=== PATIENT | female | born 1935 | race Caucasian/White ===

== ENCOUNTER 2016-07-20 15:00 | Inpatient (IN) | payer OTHER, MEDICAID ==
--- NOTE | 2016-07-20 15:06 | EDPHY ---
HPI/HX/ROS/PE/MDM Narrative: CHIEF COMPLAINT: Shortness of breath, back pain HPI: The patient is a 80 y/o female, with a history of COPD, arriving via EMS complaining of progressively worsening shortness of breath and back pain for the last 2-3 days. EMS reports her SpO2 has maintained at 97% on 6LPM en route, though she is on 2-3LPM chronically. She states, "I have a stabbing pain in my back below my shoulder blade." The pain radiates around and underneath left breast and is aggravated by deep inspiration. This pain is "much more severe" than her baseline back pain. She has been using her nebulizer twice daily and azithromycin for the last week with no improvement and her Percocet is "barely helping." She denies recent trauma, but is unsure if she has had surgery recently. REVIEW OF SYSTEMS: Aside from elements discussed in the HPI, a comprehensive 10-point review of systems was reviewed and is negative. PMH: COPD, 2-3lpm home O2, osteoarthritis, bilateral hip replacements with left hip revisions, T9 compression fracture with kyphoplasty, chronic back pain, spinal stenosis, appendectomy SOCIAL HISTORY: Lives independently in apartment Prior medical records reviewed including admission 05/18/16 for back pain. PHYSICAL EXAM: General:Patient is alert, in no acute distress. ENT:Eyes are normal to inspection. ENT inspection normal. Neck: Normal inspection. Full range of motion. Respiratory:No respiratory distress. Breath sounds normal bilaterally. Cardiovascular: Regular rate and rhythm. Strong peripheral pulses. Normal cap refill. Abdomen:The abdomen is nontender to palpation. There are no peritoneal signs. There are normal bowel sounds. Back: Normal to inspection. Tenderness just left of lateral to midline around T9. Skin: Normal color. No rash. Warm and dry. Extremities: Normal appearance. Full range of motion. Neuro: Oriented x3. Normal motor function. Normal sensory function. ED Course: 1501: Met EMS upon arrival and took report. Patient presents with 2-3 days of pleuritic back pain that radiates to her left lower chest. History of chronic back pain around same location of pain today. IV established and labs drawn including CBC, CHEM, troponin, d-dimer. Patient placed on surveillance system monitor. Chest x-ray ordered. 1L IV NS administered. The 12 lead EKG was interpreted by myself. See hard copy and/or "tracemaster" electronic copy for interpretation. Study: Chest x-ray Indication: Dyspnea, pain Results: Chest x-ray was obtained. The results of the study are Mild peribronchial thickening with mild right basilar infiltrate. The study was read by the radiologist, Dr. Valle. I viewed the images myself on the PACS system. 1620: D-dimer elevated at 5.44. Plan for chest CTA. Patient requests Percocet for pain. 1 tab PO administered. 1654: Patient refused IV contrast for CTA stating it made her "feel sick for months." We will need to admit so she can get a VQ scan to rule out PE. 1701: Spoke with hospitalist service. Dr. Jimenez accepts admission. MDM: This patient presents with is left-sided chest pain that radiates from the back of the front. She describes the pain is severe and pleuritic. Given her recent hip procedures including multiple conscious sedation was, performed infected myself, I think she is at elevated risk for DVT and PE. Patient has a very elevated D-dimer, which certainly is consistent with this. However, the patient is adamant that she will not undergo a tests involves IV contrast, so I am unable to perform a CT angiogram at this time. The patient will need to be admitted for a V/Q scan appeared the patient has evidence of a central mild right sided opacity on chest x-ray, but she has no fever if her pain is on the left side. Regardless, if this does represent pneumonia, then it would be community-acquired pneumonia that is resistant to the course of azithromycin that the patient just took and thus she would likely be a candidate for admission regardless. I see no evidence for acute coronary syndrome, pneumothorax, thoracic aortic dissection or respiratory failure. - Data Points Laboratory Results: Laboratory Results 07/20/16 15:15 07/20/16 15:15 07/20/16 15:15 WBC 10.68 H 10^3/uL (3.80-9.50) RBC 4.30 10^6/uL (4.18-5.33) Hgb 12.4 L g/dL (12.6-16.3) Hct 40.4 % (38.0-47.0) MCV 94.0 fL (81.5-99.8) MCH 28.8 pg (27.9-34.1) MCHC 30.7 L g/dL (32.4-36.7) RDW 16.2 H % (11.5-15.2) Plt Count 409 H 10^3/uL (150-400) MPV 8.9 fL (8.7-11.7) Neut % (Auto) 82.2 H % (39.3-74.2) Lymph % (Auto) 11.0 L % (15.0-45.0) Dent % (Auto) 5.9 % (4.5-13.0) Eos % (Auto) 0.2 L % (0.6-7.6) Baso % (Auto) 0.3 % (0.3-1.7) Nucleat RBC Rel Count 0.0 % (0.0-0.2) Absolute Neuts (auto) 8.78 H 10^3/uL (1.70-6.50) Absolute Lymphs (auto) 1.18 10^3/uL (1.00-3.00) Absolute Monos (auto) 0.63 10^3/uL (0.30-0.80) Absolute Eos (auto) 0.02 L 10^3/uL (0.03-0.40) Absolute Basos (auto) 0.03 10^3/uL (0.02-0.10) Absolute Nucleated RBC 0.00 10^3/uL (0-0.01) Immature Gran % 0.4 % (0.0-1.1) Immature Gran # 0.04 10^3/uL (0.00-0.10) D-Dimer 5.44 H ug/mLFEU (0.00-0.50) Sodium 140 mEq/L (134-144) Potassium 4.5 mEq/L (3.5-5.2) Chloride 104 mEq/L (97-110) Carbon Dioxide 27 mEq/l (22-31) Anion Gap 9 mEq/L (8-16) BUN 13 mg/dL (7-23) Creatinine 0.7 mg/dL (0.6-1.0) Estimated GFR > 60 Glucose 95 mg/dL (70-100) Calcium 8.8 mg/dL (8.5-10.4) Troponin I < 0.012 ng/mL (0-0.034) Medications Given: Discontinued Medications Oxycodone/Acetaminophen (Percocet 5/325) 1 tab PO EDNOW ONE Stop: 07/20/16 16:19 Last Admin: 07/20/16 16:20 Dose: 1 tab General Initial Vital Signs: Initial Vital Signs Temperature (C) 37.2 C 07/20/16 15:40 Heart Rate 95 07/20/16 15:40 Respiratory Rate 20 07/20/16 15:40 Blood Pressure 131/110 H 07/20/16 15:40 O2 Sat (%) 98 07/20/16 15:40 O2 Delivery Mode Nasal Cannula O2 (L/minute) 4 Allergies/Adverse Reactions: celecoxib [From Celebrex] Allergy (Severe, Verified 05/27/16 17:21) Weight gain, Fatigue, Increased Pain codeine [Codeine] Allergy (Severe, Verified 05/27/16 17:21) Nausea Vomiting duloxetine HCl [From Cymbalta] Allergy (Severe, Verified 05/27/16 17:21) Vomiting hydrocodone bitartrate [From Vicodin] Allergy (Severe, Verified 05/27/16 17:21) Nausea Vomiting levofloxacin [From Levaquin] Allergy (Severe, Verified 05/27/16 17:21) Swelling/neck,face,throat sulfamethoxazole [From Septra] Allergy (Severe, Verified 05/27/16 17:21) Nausea Vomiting trimethoprim [From Septra] Allergy (Severe, Verified 05/27/16 17:21) Nausea Vomiting aspirin Allergy (Intermediate, Verified 05/27/16 17:21) stomach pain cephalexin monohydrate [From Keflex] Allergy (Intermediate, Verified 05/27/16 17 :21) Stomach Pain clarithromycin [From Biaxin] Allergy (Intermediate, Verified 05/27/16 17:21) Stomach Pain orphenadrine Allergy (Intermediate, Verified 05/27/16 17:21) Stomach pain potassium clavula *RETIRED-02/23/12 [From Augmentin] Allergy (Intermediate, Verified 05/26/16 19:18) Itching tetracycline [Tetracycline] Allergy (Intermediate, Verified 05/27/16 17:21) Stomach Pain amoxicillin trihydrate [From Augmentin] Allergy (Verified 06/10/16 15:53) ciprofloxacin [From Cipro] Allergy (Verified 05/27/16 17:21) ciprofloxacin HCl [From Cipro] Allergy (Verified 05/27/16 17:21) potassium clavulanate [From Augmentin] Allergy (Verified 06/10/16 15:53) shrimp Allergy (Verified 06/10/16 15:53) ORPHENGESIC Allergy (Intermediate, Uncoded 12/16/15 15:19) Stomach Pain Terpin hydrate Allergy (Intermediate, Uncoded 12/16/15 15:19) Stomach pain Home Medications: Medication Instructions Recorded Ascorbic Acid [Vitamin C 500 mg 1,000 mg PO BID 08/26/13 (*)] Calcium Carbonate [Tums 500MG (*)] 1,000 - 1,500 mg PO DAILY PRN 08/26/13 Cholecalciferol Vit D3 [Vitamin D3 2,000 units PO DAILY 08/26/13 (*)] Fluticasone/Salmeter 250/50Mcg 1 puffs IH BID 08/26/13 [Advair 250/50 (*)] Herbals/Supplements -Info Only 1 each PO AD 08/26/13 Ipratropium/Albuterol [Duoneb (*)] 3 ml IH BID 08/26/13 Sennosides [Senokot] 3 each PO HS 08/26/13 Pantoprazole Sodium [Protonix 40mg 40 mg PO DAILY 09/15/13 (*)] Alendronate Sodium [Fosamax 70 MG 70 mg PO BERNAL@07 03/29/16 (*)] Gabapentin [Neurontin 300 MG (*)] 300 mg PO BIDMEAL 03/29/16 Levothyroxine [Synthroid 75 mcg 75 mcg PO DAILY06 03/29/16 (*)] buPROPion XL [Wellbutrin 150mg XL] 150 mg PO DAILY 03/29/16 predniSONE [Prednisone] 10 mg PO DAILY 03/29/16 diphenhydrAMINE [Benadryl 25 MG 25 mg PO HS 05/17/16 (*)] oxyCODONE/APAP 5/325 [Percocet 1 tab PO 5XD 05/17/16 5/325 (*)] Albuterol [Ventolin Hfa Inhaler] 2 puffs IH QID PRN 05/26/16 Dicyclomine [Bentyl 10 MG (*)] 10 mg PO QID PRN 05/26/16 Fluticasone Nasal [Flonase Nasal 1 sprays EACHNARE DAILY PRN 07/20/16 [place] (RX)] Gabapentin [Neurontin 300 MG (*)] 600 mg PO HS 07/20/16 Ibuprofen [Motrin (*)] 400 mg PO 5XD 07/20/16 Departure - Departure Disposition: [facility] Inpatient Acute Clinical Impression: Back pain, Dyspnea Condition: Good Report Scribed for: Manuel Montalvo Report Scribed by: Desire London Date of Report: 07/20/16 Time of Report: 15:55 Physician Review and Approval Statement: Portions of this note were transcribed by an ED scribe. I personally performed the history, physical exam, and medical decision making; and confirm the accuracy of the information in the transcribed note.
[2016-07-20 15:49] LABS: % IMMATURE GRANULYOCYTES 0.4 % (0.0-1.1); ABSOLUTE IMMATURE GRANULOCYTES 0.04 10^3/uL (0.00-0.10); ADD DIFF? NO; ADD MORPH? NO; ADD SCAN? NO; ATYPICAL LYMPHOCYTE FLAG 0 (0-99); FRAGMENT RBC FLAG 0 (0-99); HEMATOCRIT 40.4 % (38.0-47.0); HEMOGLOBIN 12.4 g/dL (12.6-16.3); LEFT SHIFT FLG 0 (0-99); LIPEMIA HEMOLYSIS FLAG 80 (0-99); MEAN CELL HEMOGLOBIN 28.8 pg (27.9-34.1); MEAN CELL HEMOGLOBIN CONCENTR. 30.7 g/dL (32.4-36.7); MEAN PLATELET VOLUME 8.9 fL (8.7-11.7); PLATELET CLUMPS FLAG 20 (0-99); PLATELET COUNT 409 10^3/uL (150-400); RED CELL DISTRIBUTION WIDTH 16.2 % (11.5-15.2)
[2016-07-20 15:53] LABS: ANION GAP 9 mEq/L (8-16); CALCIUM 8.8 mg/dL (8.5-10.4); CARBON DIOXIDE 27 mEq/l (22-31); CHLORIDE 104 mEq/L (97-110); CREATININE 0.7 mg/dL (0.6-1.0); GLOMERULAR FILTRATION RATE > 60; GLUCOSE 95 mg/dL (70-100); POTASSIUM 4.5 mEq/L (3.5-5.2); SODIUM 140 mEq/L (134-144)
[2016-07-20 16:04] LABS: TROPONIN I < 0.012 ng/mL (0-0.034)
--- NOTE | 2016-07-20 16:16 | CPEKG ---
Heart Rate: 89 RR Interval: 674 P-R Interval: 164 QRSD Interval: 124 QT Interval: 392 QTC Interval: 477 P [place]: 48 QRS [place]: 3 T Wave [place]: -15 EKG Severity - ABNORMAL ECG - EKG Impression: SINUS RHYTHM EKG Impression: RIGHT BUNDLE BRANCH BLOCK Electronically Signed By: Manuel Montalvo 20-Jul-2016 22:36:06
[2016-07-20] MEDS ORDERED: OXYCODONE/APAP 5/325 TAB PO ONE (16:18)
--- NOTE | 2016-07-20 16:20 | DX ---
Chest, AP Upright and Lateral Views, at 3:23 p.m. Clinical History: 80-year-old female in the ED with chest pain. Comparison Study: Chest, dated March 29, 2016. Findings: The patient has undergone prior vertebroplasty of T9 with an old T8 compression fracture al so noted; there is a kyphosis at this level, and the bones are diffusely demineralized. Oxygen tubing and telemetry monitoring lead lines are present. The cardiac size is at the upper limits of normal. There is tortuosity of the descending thoracic aorta. There is mild central perihilar bronchial wall thickening. There is some patchy airspace disease consistent with a mild infiltrate at the right lung base. Impression: Mild peribronchial thickening with mild right basilar infiltrate.
[2016-07-20] MEDS ORDERED: IOPAMIDOL (ISOVUE 370) 100 ML BTL IV ONE (16:37)
[2016-07-20] MEDS ORDERED: ENOXAPARIN 80 MG/0.8 ML SYR SC ONE (18:00)
[2016-07-20 18:32] LABS: COLOR YELLOW; LEUKOCYTE ESTERASE,URINE TRACE (NEGATIVE); NITRITE,URINE NEGATIVE (NEGATIVE)
[2016-07-20 18:33] LABS: INR 0.98 (0.83-1.16); PROTIME(PATIENT) 12.9 SEC (12.0-15.0)
[2016-07-20 18:34] LABS: APTT 24.8 SEC (23.0-38.0)
[2016-07-20 18:36] LABS: MUCUS TRACE /lpf (NONE-1+); YEAST PRESENT /hpf (NONE SEEN)
[2016-07-20] MEDS ORDERED: DICYCLOMINE 10 MG CAP PO PRN (19:18)
[2016-07-20] MEDS ORDERED: NON-FORMULARY NEW DRUG (Albuterol 2 PUFFS) IH PRN (19:18)
[2016-07-20] MEDS ORDERED: ALBUTEROL HFA ANES ONLY 200 PUFFS/8.5 GM MDI IH PRN (19:22)
[2016-07-20] MEDS: GABAPENTIN 300 MG CAP PO SCH (19:48)
[2016-07-20] MEDS: SENNOSIDES 1 TAB PO SCH (19:49)
[2016-07-20] MEDS: diphenhydrAMINE 25 MG CAP PO SCH (19:50)
[2016-07-20] MEDS ORDERED: KETOROLAC 30 MG/1 ML SDV IVP ONE ×2 (20:01→20:30)
[2016-07-20] MEDS: HYDROmorphONE/DILAUDID 1 MG/ML SYR IVP PRN (20:10)
[2016-07-20] MEDS: OXYCODONE/APAP 5/325 TAB PO SCH (21:47)
[2016-07-20] MEDS ORDERED: ONDANSETRON 4 MG/2 ML VIAL IVP PRN (21:58)
[2016-07-20] MEDS ORDERED: ONDANSETRON DISINTEGRATING 4 MG TAB PO PRN (21:58)
[2016-07-20] MEDS ORDERED: ACETAMINOPHEN 325 MG TAB PO PRN (21:58)
[2016-07-20] MEDS: FLUTICASONE NASAL 120 SPRAYS/16 GM MDI EACHNARE PRN (21:59)
[2016-07-20] MEDS: IPRATROPIUM/ALBUTEROL 3 ML DEYVIAL IH SCH (22:03)
[2016-07-20] MEDS: FLUTICASONE/SALMETER 250/50MCG DISKUS IH SCH (22:04)
--- NOTE | 2016-07-20 22:34 | GHP ---
[f rep st] HISTORY AND PHYSICAL DATE OF ADMISSION: 07/20/2016 CHIEF COMPLAINT: Left-sided chest pain. HISTORY OF PRESENT ILLNESS: This is a 80-year-old female who has been recently admitted a few times in the last month. She has a history of a recent kyphoplasty for compression fracture and also had a hip dislocation in early May. She states she has had several days of severe left-sided chest p ain which is pleuritic and quite sharp and also is radiating to her back. She also feels increasing shortness of breath that is independent of the pain. She denies any lower extremity swelling. No fe vers or chills. She did have a little bit of a cough and thought the pain may be related to possible pneumonia and finished a Z-MIGUEL. This did not help any of her symptoms. Patient adamantly refuses I V contrast since she got sick for 3 months after last contrasted study. REVIEW OF SYSTEMS: A 10-point review of systems was obtained and was negative. PAST MEDICAL HISTORY: 1. Chronic back pain on opioids. 2. Recent compression fracture status post kyphoplasty. 3. Recent hip dislocation. 4. COPD with chronic hypoxic respiratory failure on 3 L of oxygen at home. 5. Hypothyroidism. 6. Severe arthritis. 7. History of spinal stenosis. 8. History of perforated ulcer. FAMILY HISTORY: Reviewed. No history of blood clots. SOCIAL HISTORY: Former smoker. No alcohol. Lives at home. PHYSICAL EXAMINATION: VITAL SIGNS: Afebrile. Blood pressure is 158/134, heart rate 83, oxygen satu ration 94% on 2 L. GENERAL: The patient is well developed in no apparent distress. HEENT: [place] sclerae. Extraocular movements intact. Moist mucous membranes. NECK: Supple. No thyromegaly. LUNGS: Good effort and slight crackles in the right base. Some tenderness in the chest wall on th e left back. ABDOMEN: Positive bowel sounds, soft, nontender, nondistended. No hepatosplenomegaly. EXTREMITIES: No clubbing, cyanosis or edema. SKIN: Without rash or intact. NEUROLOGIC: Alert a nd oriented x3. Moves all 4 extremities equally. PSYCH: Normal mood and affect. LABS: White blood cell count 10, hemoglobin 12, platelets are 409. D-dimer is elevated at 5.4. Kaelyn mistries normal. EKG shows a right bundle branch block, which is old. Chest x-ray shows mild right basilar infiltrate. ASSESSMENT: This is a 80-year-old female presenting with symptoms very suggestive of pulmonary embol ism and quite elevated D-dimer but refusing CT scan. PLAN: 1. Rule out pulmonary embolism. The patient will be empirically treated at this point with Lovenox. In the morning, we will get a V/Q scan, echocardiogram and Dopplers to help guide decision making g oing forward. I did give a little bit of Toradol tonight for her pain, but we will hold off the regu lar scheduled ibuprofen that she is usually on. 2. Chronic obstructive pulmonary disease. We will continue her chronic prednisone. 3. Chronic pain. We will continue narcotics. /[id number]/MODL
--- NOTE | 2016-07-20 23:12 | US ---
Ultrasound Venous Duplex Doppler - Bilateral Legs at 2232 hours History: Back pain. Pain and swelling. Findings: Ultrasound venous Duplex and Doppler imaging of the bilateral common femoral veins, femoral veins, popliteal veins, calf veins, and greater saphenous vein origins demonstrates normal compressi bility, Duplex color-flow, Doppler flow without deep venous thrombosis. Impression: No deep venous thrombosis bilateral legs.
[2016-07-21] MEDS: HYDROmorphONE/DILAUDID 1 MG/ML SYR IVP PRN ×4 (02:41→20:23)
[2016-07-21] MEDS: OXYCODONE/APAP 5/325 TAB PO SCH ×5 (05:39→22:48)
[2016-07-21] MEDS: LEVOTHYROXINE 75 MCG TAB PO SCH (05:39)
[2016-07-21 06:14] LABS: % IMMATURE GRANULYOCYTES 0.5 % (0.0-1.1); ABSOLUTE IMMATURE GRANULOCYTES 0.04 10^3/uL (0.00-0.10); ADD DIFF? NO; ADD MORPH? NO; ADD SCAN? NO; ATYPICAL LYMPHOCYTE FLAG 20 (0-99); FRAGMENT RBC FLAG 0 (0-99); HEMATOCRIT 37.1 % (38.0-47.0); HEMOGLOBIN 11.2 g/dL (12.6-16.3); LEFT SHIFT FLG 0 (0-99); LIPEMIA HEMOLYSIS FLAG 80 (0-99); MEAN CELL HEMOGLOBIN 28.6 pg (27.9-34.1); MEAN CELL HEMOGLOBIN CONCENTR. 30.2 g/dL (32.4-36.7); MEAN CELL VOLUME 94.6 fL (81.5-99.8); PLATELET CLUMPS FLAG 10 (0-99); PLATELET COUNT 354 10^3/uL (150-400); RED BLOOD CELL COUNT 3.92 10^6/uL (4.18-5.33); RED CELL DISTRIBUTION WIDTH 16.4 % (11.5-15.2)
[2016-07-21 06:31] LABS: ANION GAP 6 mEq/L (8-16); CALCIUM 8.4 mg/dL (8.5-10.4); CARBON DIOXIDE 31 mEq/l (22-31); CHLORIDE 105 mEq/L (97-110); CREATININE 0.6 mg/dL (0.6-1.0); GLOMERULAR FILTRATION RATE > 60; GLUCOSE 76 mg/dL (70-100); POTASSIUM 3.6 mEq/L (3.5-5.2); SODIUM 142 mEq/L (134-144)
[2016-07-21] MEDS: predniSONE 10 MG TAB PO SCH (08:01)
[2016-07-21] MEDS: buPROPion XL 150 MG TAB PO SCH (08:01)
[2016-07-21] MEDS: GABAPENTIN 300 MG CAP PO SCH ×3 (08:01→20:06)
[2016-07-21] MEDS: PANTOPRAZOLE SODIUM 40 MG TAB PO SCH (08:01)
[2016-07-21] MEDS ORDERED: FLU VACC TS 2016-17(65YR+)/PF 0.5 ML SYR (FLUZONE HIGH DOSE) IM ONE (08:44)
[2016-07-21] MEDS ORDERED: PNEUMOC 13-VAL CONJ-DIP CRM/PF 0.5 ML SYR IM ONE (08:44)
[2016-07-21] MEDS ORDERED: ENOXAPARIN 80 MG/0.8 ML SYR SC SCH (09:00)
[2016-07-21] MEDS: IPRATROPIUM/ALBUTEROL 3 ML DEYVIAL IH SCH ×2 (10:05→20:33)
[2016-07-21] MEDS: FLUTICASONE/SALMETER 250/50MCG DISKUS IH SCH ×2 (10:12→20:37)
--- NOTE | 2016-07-21 10:45 | ECHO ---
[id number] + + [address] : : [place] [address] : : [phone] + Adult Echocardiographic Report + ---+ :Name: Jonas ARAUJO Date: 07/21/2016 07:40 AM : : Hospital Admission Number: [id number] Location: 395: :: 1935 Gender: Female Height: 60 in : :Age: 80 yrs Race: WH Weight: 152 lb : :Reason For Study: Question PE : : BSA: 1.7 meters2 : + ---+ MMode/2D Measurements & Calculations IVSd: 0.79 cm LVIDd: 4.6 cm FS: 44.4 % MV Diam: 3.0 cm LVPWd: 0.95 cm LVIDs: 2.5 cm EDV(Teich): 96.7 ml ESV(Teich): 23.4 ml EF(Teich): 75.7 % Ao root diam: LVOT diam: 1.8 cmLVLd ap4: 7.1 cm SV(MOD-sp4): 3.1 cm LVOT area: EDV(MOD-sp4): 38.0 ml LA dimension: 2.5 cm2 60.0 ml 4.4 cm LVLs ap4: 5.7 cm ESV(MOD-sp4): 22.0 ml EF(MOD-sp4): 63.3 % Normal Measurement Values: + + :LVIDd (3.5-5.7cm) IVSd (0.6-1.1cm) LVPWd (0.6-1.1cm) Aortic Root (2.0-3.7cm)Left Atrium (1.5-4.0cm): :LV Vol(d) (76-115ml) LV Vol(s) (29-48ml) Ejec Fraction (50-65%)PV Liban (0.6- 1.2m/s) TV Liban (0.4-1.0m/s) : :MV E Liban (0.8-1.0m/s)MV A Liban (0.3-1.0m/s)LVOT Liban (0.7-1.2m/s) Asc Ao Liban ( 0.9-1.8m/s) : + + Doppler Measurements & Calculations MV E max liban: MV V2 max: Ao V2 max: LV V1 max: 55.8 cm/sec 94.6 cm/sec 161.0 cm/sec 86.5 cm/sec MV A max liban: MV max P.6 mmHg Ao max PG: LV V1 max P.9 cm/sec MV V2 mean: 10.4 mmHg 3.0 mmHg MV E/A: 0.63 65.2 cm/sec Ao mean PG: LV V1 mean PG: MV mean P.0 mmHg 2.0 mmHg 2.0 mmHg Ao V2 mean: LV V1 mean: MV V2 VTI: 23.6 cm 111.0 cm/sec 62.4 cm/sec MV area (1 diam): Ao V2 VTI: 30.3 cm LV V1 VTI: 18.8 cm 7.1 cm2 RESHMA(I,D): 1.6 cm2 MVA(VTI): 2.0 cm2 RESHMA(V,D): 1.4 cm2 MV Flow area (1diam): 7.1 cm2 MR max liban: MR(RF 1 diam): SV(MV 1 diam): TR max liban: 632.0 cm/sec 5.8 % 166.8 ml 257.0 cm/sec MR max PG: SI(MV 1 diam): TR max P.8 mmHg 100.4 ml/m2 26.4 mmHg SV(LVOT): 47.8 ml RAP systole: 5.0 mmHg RVSP(TR): 31.4 mmHg RF(MV,Ao)(1 diam): -0.37 RF(MV,LVOT) (1diam): 0.71 Left Ventricle The left ventricle is normal in size. There is normal left ventricular wall thickness. Left ventricular systolic function is normal. Ejection Fraction = 65-70%. No regional wall motion abnormalities noted. Right Ventricle The right ventricle is normal in size and function. Atria The left atrium is mildly dilated. Right atrial size is normal. The interatrial septum is intact with no evidence for an atrial septal defect. Mitral Valve The mitral valve is normal in structure and function. There is no evidence of mitral valve prolapse. There is no mitral valve stenosis. There is moderate mitral regurgitation. Tricuspid Valve Normal tricuspid valve. Right ventricular systolic pressure is normal. There is mild tricuspid regurgitation. Aortic Valve The aortic valve is trileaflet. The aortic valve opens well. Mild Aortic Valve Calcification. There is no aortic stenosis. There is no aortic insufficiency. Pulmonic Valve The pulmonic valve is normal in structure and function. Trace pulmonic valvular regurgitation. Great Vessels The aortic root is normal size. Pericardium/Pleural There is no pericardial effusion. There is a fat pad seen. Conclusion A complete two-dimensional transthoracic echocardiogram was performed (2D, M-mode, Doppler and color flow Doppler). Left ventricular systolic function is normal. Ejection Fraction = 65-70%. The left atrium is mildly dilated. There is moderate mitral regurgitation. There is mild tricuspid regurgitation. Right ventricular systolic pressure is normal. Mild Aortic Valve Calcification Trace pulmonic valvular regurgitation. There is a fat pad seen. Final Reading Physician: Zuleyka Aiken signed on 07/21/2016 10:43 AM Ordering Physician: Roxann Jimenez Performed By: Aleksandra Hendricks, RICK
--- NOTE | 2016-07-21 12:23 | NM ---
Nuclear Medicine Ventilation/Perfusion Lung Scan Indications: Possible pulmonary embolus, declines IV contrast. Comparison: PA and lateral chest July 20, 2016. Technique: Ventilation imaging was performed with 11.0 mCi of 133 xenon, administered by inhalation. Single-breath, equilibrium, and washout phases were imaged. Perfusion imaging was performed with 5 .5 mCi of technetium 99m MAA injected intravenously. Perfusion images were acquired in multiple proj ections. Findings: There is mild air trapping in the apices, left greater than right. There is an equivocal sm all right apical perfusion defect. Impression: 1. Low probability for pulmonary embolus. 2. Mild air trapping.
--- NOTE | 2016-07-21 13:06 | HOSPPROG ---
Hospitalist Progress Note Assessment/Plan: 80-year-old admitted with left upper back pain. This started fairly suddenly in the setting of chronic back pain and recurrent compression fractures. # left upper back pain radiating to left ribs. Echo, ultrasound lower extremities and V/Q scan all negative for DVT and PE. Echo shows normal function with no pulmonary hypertension. EKG is normal troponins were negative * Suspect possible compression fracture given patient's history * Check x-rays * PT OT * Pain requiring IV narcotics will need greater than 2 midnight stay. # chronic back pain with ongoing narcotic dependency * Continue medications * Physical therapy # COPD with chronic respiratory failure of 3 liters/minute, stable from respiratory standpoint continue her usual medications and oxygen # hypothyroidism on replacement # recent hip dislocation # spinal stenosis # DVT prophylaxis will start low-molecular weight heparin Subjective: Patient had sudden onset of back pain radiating to her left ribs. Similar to her previous compression fracture. No shortness of breath diaphoresis associated with this no history of heart disease. Pain is constant , worse with movement better when she is lying flat Objective: Vital Signs Temp Pulse Resp BP Pulse Ox 36.7 C 88 18 134/69 H 93 07/21/16 08:32 07/21/16 12:06 07/21/16 12:06 07/21/16 12:06 07/21/16 12:06 Laboratory Results 07/21/16 05:31 07/21/16 05:31 07/20/16 07/21/16 07/22/16 05:59 05:59 05:59 Intake Total 250 Balance 250 PT 12.9 SEC (12.0-15.0) 07/20/16 15:15 INR 0.98 (0.83-1.16) 07/20/16 15:15 - Physical Exam Constitutional: obese, uncomfortable Eyes: PERRL, anicteric sclera, EOMI Ears, Nose, Mouth, Throat: moist mucous membranes, hearing normal, ears appear normal Cardiovascular: regular rate and rhythym, no murmur, rub, or gallop Respiratory: no respiratory distress, no rales or rhonchi, clear to auscultation Gastrointestinal: normoactive bowel sounds, soft, non-tender abdomen, no palpable masses Genitourinary: no bladder fullness Skin: warm, normal color Musculoskeletal: other (Spine tenderness upper T-spine), No muscular tenderness Neurologic: AAOx3 Psychiatric: interacting appropriately, not anxious, not encephalopathic ICD10 Worksheet Patient Problems: Problems Problem Status Diagnosed Back pain Acute Dyspnea Acute Hypoxemia Acute Gastric ulcer with perforation Acute Generalized weakness Acute Hip dislocation, left Acute Osteoporosis Acute S/P hip replacement Acute
[2016-07-21] MEDS ORDERED: ALBUTEROL 60 PUFFS/8 GM MDI IH PRN (15:59)
--- NOTE | 2016-07-21 17:09 | DX ---
Thoracic Spine 2 views at 15:49 PM Indication: Scapular pain. History of compression fractures. Comparison: MRI of the thoracic spine dated May 18, 2016 and 2 view chest dated July 20 2016 Findings: No acute compression fracture. The moderate to severe compression fractures at T8 and T9 an d intramedullary cement of the T9 level are unchanged. Kyphosis and multilevel degenerative disk and facet arthropathy is unchanged. A subacute posterior right sixth rib fracture has minimal sclerosis. No left-sided rib fractures. Aeration has improved and right basilar atelectasis has resolved. Impression: 1. No evidence of acute upper thoracic spine compression fracture. 2. Moderate to severe compression deformities at T8 and T9 are unchanged since May 2016. 3. Improved aeration and right basilar atelectasis since one day prior. Comment: The results were discussed with Dr. Zainab Priest
[2016-07-21] MEDS: SENNOSIDES 1 TAB PO SCH (20:07)
[2016-07-21] MEDS: diphenhydrAMINE 25 MG CAP PO SCH (20:23)
[2016-07-22] MEDS: HYDROmorphONE/DILAUDID 1 MG/ML SYR IVP PRN ×4 (05:07→19:17)
[2016-07-22] MEDS: OXYCODONE/APAP 5/325 TAB PO SCH ×3 (05:08→13:47)
[2016-07-22] MEDS: LEVOTHYROXINE 75 MCG TAB PO SCH (05:08)
[2016-07-22] MEDS: FLUTICASONE/SALMETER 250/50MCG DISKUS IH SCH ×2 (09:45→21:35)
[2016-07-22] MEDS: IPRATROPIUM/ALBUTEROL 3 ML DEYVIAL IH SCH ×2 (09:46→21:26)
[2016-07-22] MEDS: PANTOPRAZOLE SODIUM 40 MG TAB PO SCH (09:48)
[2016-07-22] MEDS: predniSONE 10 MG TAB PO SCH (09:49)
[2016-07-22] MEDS: buPROPion XL 150 MG TAB PO SCH (09:50)
[2016-07-22] MEDS: GABAPENTIN 300 MG CAP PO SCH ×3 (09:50→20:49)
[2016-07-22] MEDS ORDERED: PNEUMOC 13-VAL CONJ-DIP CRM/PF 0.5 ML SYR IM ONE (10:16)
--- NOTE | 2016-07-22 11:29 | HOSPPROG ---
Hospitalist Progress Note Assessment/Plan: 80-year-old admitted with left upper back pain. This started fairly suddenly in the setting of chronic back pain and recurrent compression fractures. Discussed with Dr. Barreto. CT of thoracic spine shows multiple rib fractures as well as possible worsening compression fracture of T8. Discussed findings with patient. # left upper back pain radiating to left ribs. * Options include MRI with sedation and possible kyphoplasty of T8 versus medical management * Unclear how much of her pain is directly from the rib fractures versus compression fracture. * Patient will think about options and let me know if she wants to proceed with MRI, I will alert Dr. Barreto, if she opts for kyphoplasty. She will need an MRI prior to kyphoplasty * Add scheduled Tylenol, Oxy IR and Ultram as needed. * Physical and occupational therapy # chest pain on admission. V/Q scan echo and Dopplers were all negative. Suspect this is all referred pain from her posterior rib fractures # chronic back pain with ongoing narcotic dependency * Continue medications * Physical therapy # COPD with chronic respiratory failure of 3 liters/minute, stable from respiratory standpoint continue her usual medications and oxygen # hypothyroidism on replacement # severe osteoporosis with spontaneous fractures, needs follow-up with endocrine or Rheumatology since she is on chronic steroid therapy for her severe COPD # recent hip dislocation # spinal stenosis # DVT prophylaxis hold low-molecular weight heparin for 2 days given possible epidural steroid injection or kyphoplasty, will start Barney milan and Miko Subjective: Just got out of bed and complains of a lot of pain when she moves. No chest pains no shortness of breath. Most of the pain is located in her back Objective: Vital Signs Temp Pulse Resp BP Pulse Ox 36.6 C 83 18 126/70 H 93 07/22/16 10:02 07/22/16 10:02 07/22/16 10:02 07/22/16 10:02 07/22/16 10:02 Laboratory Results 07/21/16 05:31 07/21/16 05:31 07/21/16 07/22/16 07/23/16 05:59 05:59 05:59 Intake Total 250 Balance 250 PT 12.9 SEC (12.0-15.0) 07/20/16 15:15 INR 0.98 (0.83-1.16) 07/20/16 15:15 - Time Spent With Patient Time Spent with Patient: greater than 35 minutes (Discussed various options for her pain control and her prognosis.) Time Spent with Patient: Greater than 35 minutes spent on this patients care, greater than 50% of time spent counseling, educating, and coordinating care regarding the above mentioned plan. - Physical Exam Constitutional: obese, uncomfortable Eyes: PERRL, EOMI Ears, Nose, Mouth, Throat: moist mucous membranes, hearing normal, ears appear normal Cardiovascular: regular rate and rhythym, no murmur, rub, or gallop, No edema Respiratory: no respiratory distress, no rales or rhonchi, clear to auscultation Gastrointestinal: normoactive bowel sounds, soft, non-tender abdomen, no palpable masses Genitourinary: no bladder fullness Skin: warm, normal color Musculoskeletal: other (Spinal tenderness lower T-spine) Neurologic: AAOx3 Psychiatric: interacting appropriately, not anxious, not encephalopathic ICD10 Worksheet Patient Problems: Problems Problem Status Diagnosed Back pain Acute Dyspnea Acute Hypoxemia Acute Gastric ulcer with perforation Acute Generalized weakness Acute Hip dislocation, left Acute Osteoporosis Acute S/P hip replacement Acute
[2016-07-22] MEDS: LIDOCAINE 5% 1 EA PATCH TD SCH (12:41)
--- NOTE | 2016-07-22 13:23 | CT ---
CT Thoracic Spine (Trauma ) without Contrast 12:08 p.m. Indication: Back pain. History of demineralization and kyphoplasty. Technique: Small [id number] 1.5-mm thick helically acquired slices were obtained through the thora cic spine. Small [id number]-hd-[id number] sagittal and coronal reconstructions of the spine were performed and b one algorithm. Dose reduction techniques were utilized. Comparison: MRI of the thoracic spine dated May 18, 2016 and thoracic spine series from one day prior. Findings: An acute fracture of the left fourth rib neck (image 57 of series 4) is evidenced by a disc rete fracture plane and buckle deformity. No healing callus has developed. Subacute rib neck fracture s involve the left fifth, left sixth, bilateral seventh, eighth, and ninth ribs evidenced by fracture planes and healing callus. No acute thoracic spine fracture. Specifically, no acute thoracic spine fracture at the T4 level. The moderate to severe T9 compression fracture containing intramedullary cement is unchanged. The old mo derate to severe T8 compression fracture has minimal vertical height loss since May 2016. The an terior vertebral body now measures 6 mm craniocaudal (previously 9 mm). No paraspinal hematoma or fluid collection. Image portion of the lungs reveals centrilobular emphysem a, diffuse peribronchial thickening and minimal bibasilar atelectasis. The thoracic aorta is normal c aliber and tortuous with moderate calcified plaque. Impression: 1. Acute fracture of the left fourth rib neck. 2. Subacute fractures of the left fifth, sixth, and bilateral seventh, eighth, and ninth ribs at the neck near the articulation with the spine. 3. Old moderate to severe T8 and T9 compression fractures. Minimal progressive height loss of T8 sinc e May 2016. 4. No new thoracic spine compression fracture.
[2016-07-22] MEDS: METHOCARBAMOL 500 MG TAB PO SCH ×2 (15:49→20:50)
[2016-07-22] MEDS: ACETAMINOPHEN 500 MG TAB PO SCH ×2 (15:51→20:49)
[2016-07-22] MEDS: traMADol 50 MG TAB PO PRN (15:51)
[2016-07-22] MEDS: FLUTICASONE NASAL 120 SPRAYS/16 GM MDI EACHNARE PRN (19:21)
[2016-07-22] MEDS: diphenhydrAMINE 25 MG CAP PO SCH (20:49)
[2016-07-22] MEDS: SENNOSIDES 1 TAB PO SCH (20:50)
[2016-07-22] MEDS: oxyCODONE IR 5 MG TAB PO PRN (20:59)
[2016-07-22] MEDS: PATCH REMOVAL 1 EA PATCH TD SCH (21:06)
[2016-07-23] MEDS: HYDROmorphONE/DILAUDID 1 MG/ML SYR IVP PRN ×3 (04:39→17:38)
[2016-07-23] MEDS: LEVOTHYROXINE 75 MCG TAB PO SCH (04:40)
[2016-07-23] MEDS: LIDOCAINE 5% 1 EA PATCH TD SCH (08:21)
[2016-07-23] MEDS: traMADol 50 MG TAB PO PRN (08:21)
[2016-07-23] MEDS: oxyCODONE IR 5 MG TAB PO PRN ×2 (08:22→12:14)
[2016-07-23] MEDS: predniSONE 10 MG TAB PO SCH (08:22)
[2016-07-23] MEDS: PANTOPRAZOLE SODIUM 40 MG TAB PO SCH (08:22)
[2016-07-23] MEDS: buPROPion XL 150 MG TAB PO SCH (08:22)
[2016-07-23] MEDS: ACETAMINOPHEN 500 MG TAB PO SCH ×3 (08:22→20:56)
[2016-07-23] MEDS: GABAPENTIN 300 MG CAP PO SCH ×3 (08:23→20:56)
[2016-07-23] MEDS: METHOCARBAMOL 500 MG TAB PO SCH ×3 (08:23→20:56)
[2016-07-23] MEDS: FLUTICASONE/SALMETER 250/50MCG DISKUS IH SCH ×2 (08:25→21:04)
[2016-07-23] MEDS ORDERED: LIDOCAINE 5% 1 EA PATCH TD SCH (09:00)
[2016-07-23] MEDS: IPRATROPIUM/ALBUTEROL 3 ML DEYVIAL IH SCH ×2 (09:14→21:04)
[2016-07-23] MEDS: HYDROmorphONE/DILAUDID 2 MG TAB PO PRN ×3 (15:10→20:55)
--- NOTE | 2016-07-23 16:07 | HOSPPROG ---
Hospitalist Progress Note Assessment/Plan: 80-year-old admitted with left upper back pain. This started fairly suddenly in the setting of chronic back pain and recurrent compression fractures. Discussed with Dr. Barreto. CT of thoracic spine shows multiple rib fractures as well as possible worsening compression fracture of T8. Discussed findings with patient. # left upper back pain radiating to left ribs. * Options include MRI with sedation and possible kyphoplasty of T8 versus medical management * suspect pain is more from ribs * Patient wants to hold off on kyphoplasty * transition to oral pain management regimen # chest pain on admission. V/Q scan echo and Dopplers were all negative. Suspect this is all referred pain from her posterior rib fractures # chronic back pain with ongoing narcotic dependency * Continue medications * Physical therapy # COPD with chronic respiratory failure of 3 liters/minute, stable from respiratory standpoint continue her usual medications and oxygen # hypothyroidism on replacement # severe osteoporosis with spontaneous fractures, needs follow-up with endocrine or Rheumatology since she is on chronic steroid therapy for her severe COPD * vitamin-D a little low. Will need to increase dose outpatient # recent hip dislocation # spinal stenosis # DVT prophylaxis hold low-molecular weight heparin for 2 days given possible epidural steroid injection or kyphoplasty, will start Barney bjorn and SCDs Subjective: back and chest pain is getting a little bit better Objective: Vital Signs Temp Pulse Resp BP Pulse Ox 37.0 C 94 18 120/60 93 07/23/16 15:57 07/23/16 15:57 07/23/16 15:57 07/23/16 15:57 07/23/16 15:57 Laboratory Results 07/21/16 05:31 07/21/16 05:31 07/22/16 07/23/16 07/24/16 05:59 05:59 05:59 Intake Total 800 Balance 800 PT 12.9 SEC (12.0-15.0) 07/20/16 15:15 INR 0.98 (0.83-1.16) 07/20/16 15:15 - Physical Exam Constitutional: no apparent distress, appears nourished, not in pain Eyes: anicteric sclera, EOMI Ears, Nose, Mouth, Throat: moist mucous membranes Cardiovascular: regular rate and rhythym, other ( chest wall tenderness) Respiratory: no respiratory distress, no rales or rhonchi, clear to auscultation Gastrointestinal: normoactive bowel sounds, soft, non-tender abdomen, no palpable masses Neurologic: AAOx3 Psychiatric: interacting appropriately, not anxious, not encephalopathic, thought process linear ICD10 Worksheet Patient Problems: Problems Problem Status Diagnosed Back pain Acute Dyspnea Acute Hypoxemia Acute Gastric ulcer with perforation Acute Generalized weakness Acute Hip dislocation, left Acute Osteoporosis Acute S/P hip replacement Acute
[2016-07-23] MEDS: SENNOSIDES 1 TAB PO SCH (20:55)
[2016-07-23] MEDS: diphenhydrAMINE 25 MG CAP PO SCH (20:55)
[2016-07-23] MEDS: PATCH REMOVAL 1 EA PATCH TD SCH (20:59)
[2016-07-24] MEDS: HYDROmorphONE/DILAUDID 2 MG TAB PO PRN (06:10)
[2016-07-24] MEDS: LEVOTHYROXINE 75 MCG TAB PO SCH (06:10)
[2016-07-24] MEDS: oxyCODONE IR 5 MG TAB PO PRN ×4 (08:13→21:14)
[2016-07-24] MEDS: LIDOCAINE 5% 1 EA PATCH TD SCH (08:14)
[2016-07-24] MEDS: buPROPion XL 150 MG TAB PO SCH (08:16)
[2016-07-24] MEDS: predniSONE 10 MG TAB PO SCH (08:16)
[2016-07-24] MEDS: PANTOPRAZOLE SODIUM 40 MG TAB PO SCH (08:17)
[2016-07-24] MEDS: GABAPENTIN 300 MG CAP PO SCH ×3 (08:17→21:14)
[2016-07-24] MEDS: METHOCARBAMOL 500 MG TAB PO SCH ×3 (08:18→21:13)
[2016-07-24] MEDS: FLUTICASONE NASAL 120 SPRAYS/16 GM MDI EACHNARE PRN (08:19)
[2016-07-24] MEDS: traMADol 50 MG TAB PO PRN (08:24)
[2016-07-24] MEDS: HYDROmorphONE/DILAUDID 1 MG/ML SYR IVP PRN (09:08)
[2016-07-24] MEDS: FLUTICASONE/SALMETER 250/50MCG DISKUS IH SCH ×2 (09:21→21:16)
[2016-07-24] MEDS: IPRATROPIUM/ALBUTEROL 3 ML DEYVIAL IH SCH ×2 (09:21→21:16)
[2016-07-24] MEDS: ACETAMINOPHEN 500 MG TAB PO SCH ×5 (10:08→21:13)
--- NOTE | 2016-07-24 15:33 | HOSPPROG ---
Hospitalist Progress Note Assessment/Plan: 80-year-old admitted with left upper back pain. This started fairly suddenly in the setting of chronic back pain and recurrent compression fractures. Discussed with Dr. Barreto. CT of thoracic spine shows multiple rib fractures as well as possible worsening compression fracture of T8. Discussed findings with patient. # left upper back pain/ rib pain due to multiple rib fractures and possible compression fracture * Options include MRI with sedation and possible kyphoplasty of T8 versus medical management * suspect pain is more from ribs * Patient wants to hold off on kyphoplasty * transition to oral pain management regimen * increase oral oxycodone. Does not seem Dilaudid is working # chest pain on admission. V/Q scan echo and Dopplers were all negative. Suspect this is all referred pain from her posterior rib fractures # chronic back pain with ongoing narcotic dependency * Continue medications * Physical therapy # COPD with chronic respiratory failure of 3 liters/minute, stable from respiratory standpoint continue her usual medications and oxygen # hypothyroidism on replacement # severe osteoporosis with spontaneous fractures, needs follow-up with endocrine or Rheumatology since she is on chronic steroid therapy for her severe COPD * vitamin-D a little low. Will need to increase dose outpatient # recent hip dislocation # spinal stenosis # DVT prophylaxis hold low-molecular weight heparin for 2 days given possible epidural steroid injection or kyphoplasty, will start Barney milan and Miko # disposition * probable home tomorrow. Patient does not want to go to rehab. Subjective: still having significant pain. Oral Dilaudid does not seem to be helping Objective: Vital Signs Temp Pulse Resp BP Pulse Ox 36.7 C 82 18 118/70 95 07/24/16 08:00 07/24/16 09:15 07/24/16 09:15 07/24/16 08:00 07/24/16 09:15 Laboratory Results 07/21/16 05:31 07/21/16 05:31 07/23/16 07/24/16 07/25/16 05:59 05:59 05:59 Intake Total 800 Balance 800 PT 12.9 SEC (12.0-15.0) 07/20/16 15:15 INR 0.98 (0.83-1.16) 07/20/16 15:15 - Physical Exam Constitutional: no apparent distress, appears nourished, not in pain Eyes: anicteric sclera, EOMI Ears, Nose, Mouth, Throat: moist mucous membranes, hearing normal Cardiovascular: regular rate and rhythym Respiratory: no respiratory distress Skin: warm Neurologic: AAOx3 Psychiatric: interacting appropriately ICD10 Worksheet Patient Problems: Problems Problem Status Diagnosed Back pain Acute Dyspnea Acute Hypoxemia Acute Gastric ulcer with perforation Acute Generalized weakness Acute Hip dislocation, left Acute Osteoporosis Acute S/P hip replacement Acute
[2016-07-24] MEDS ORDERED: predniSONE 5 MG TAB PO SCH (15:34)
[2016-07-24] MEDS: SENNOSIDES 1 TAB PO SCH (21:15)
[2016-07-24] MEDS: diphenhydrAMINE 25 MG CAP PO SCH (21:15)
[2016-07-24] MEDS: PATCH REMOVAL 1 EA PATCH TD SCH (21:15)
[2016-07-25] MEDS: LEVOTHYROXINE 75 MCG TAB PO SCH (06:16)
[2016-07-25] MEDS: oxyCODONE IR 5 MG TAB PO PRN ×2 (06:16→10:07)
[2016-07-25 07:48] VITALS: TEMP 98.5
[2016-07-25] MEDS: LIDOCAINE 5% 1 EA PATCH TD SCH (08:06)
[2016-07-25] MEDS: PANTOPRAZOLE SODIUM 40 MG TAB PO SCH (08:08)
[2016-07-25] MEDS: METHOCARBAMOL 500 MG TAB PO SCH (08:08)
[2016-07-25] MEDS: GABAPENTIN 300 MG CAP PO SCH (08:09)
[2016-07-25] MEDS: buPROPion XL 150 MG TAB PO SCH (08:09)
[2016-07-25] MEDS: ACETAMINOPHEN 500 MG TAB PO SCH (08:11)
[2016-07-25] MEDS: FLUTICASONE NASAL 120 SPRAYS/16 GM MDI EACHNARE PRN (09:09)
--- NOTE | 2016-07-25 09:37 | PDIAF ---
- Diagnosis Diagnosis: rib fractures, osteoporosis Code Status: Full Code - Medication Management Discharge Medications: Medications to Continue on Transfer Ascorbic Acid [Vitamin C 500 mg (*)] 1,000 mg PO BID 08/26/13 [Last Taken ] Calcium Carbonate [Tums 500MG (*)] 1,000 - 1,500 mg PO DAILY PRN 08/26/13 [Last Taken 07/20/16] Fluticasone/Salmeter 250/50Mcg [Advair 250/50 (*)] 1 puffs IH BID 08/26/13 [ Last Taken 07/20/16] Herbals/Supplements -Info Only 1 each PO AD 08/26/13 [Last Taken 07/20/16] Ipratropium/Albuterol [Duoneb (*)] 3 ml IH BID 08/26/13 [Last Taken 07/20/16] Sennosides [Senokot] 3 each PO HS 08/26/13 [Last Taken 07/19/16] Pantoprazole Sodium [Protonix 40mg (*)] 40 mg PO DAILY 09/15/13 [Last Taken 10/29] Alendronate Sodium [Fosamax 70 MG (*)] 70 mg PO BERNAL@07 03/29/16 [Last Taken 07/13] Gabapentin [Neurontin 300 MG (*)] 300 mg PO BIDMEAL 03/29/16 [Last Taken ] Levothyroxine [Synthroid 75 mcg (*)] 75 mcg PO DAILY06 03/29/16 [Last Taken 10/29] buPROPion XL [Wellbutrin 150mg XL] 150 mg PO DAILY 03/29/16 [Last Taken 07/20/16 ] diphenhydrAMINE [Benadryl 25 MG (*)] 25 mg PO HS 05/17/16 [Last Taken 07/20/16] Albuterol [Ventolin Hfa Inhaler] 2 puffs IH QID PRN 05/26/16 [Last Taken Unknown ] Dicyclomine [Bentyl 10 MG (*)] 10 mg PO QID PRN 05/26/16 [Last Taken Unknown] Fluticasone Nasal [Flonase Nasal [place]] 1 sprays EACHNARE DAILY PRN 07/20/16 [ Last Taken Unknown] Gabapentin [Neurontin 300 MG (*)] 600 mg PO HS 07/20/16 [Last Taken 07/19/16] Cholecalciferol Vit D3 [Vitamin D3 (*)] 4,000 units PO DAILY #0 tab 07/25/16 [ Last Taken Unknown] HYDROmorphone HCL [Dilaudid 2 mg (*)] 2 - 4 mg PO Q4HRS PRN #30 tab 07/25/16 [ Last Taken Unknown] oxyCODONE IR [Oxycodone Ir (*)] 15 mg PO Q4 PRN #40 tab 07/25/16 [Last Taken Unknown] predniSONE 7.5 mg PO DAILY #30 tab 07/25/16 [Last Taken Unknown] Discharge Medications: Refer to the Discharge Home Medication list for PRN reason. - Orders Services needed: Home Care, Registered Nurse, Certified House Wirer Helper, Physical Therapy, Occupational Therapy Home Care Face to Face: I certify that this patient was under my care and that I had the required [id number] encounter meeting the encounter requirements on the discharge day. My findings support the fact that the patient is homebound as defined in CMS Chapter 7 Medicare Benefits Manual 30.1.1, The condition of the patient is such that there exists a normal inability to leave home and consequently, leaving home would require a considerable and taxing effort. - Follow Up Care Current Providers and Referrals: Alexis Ferrara MD [Primary Care Provider] - follow up in 1 week Shon Agarwal MD [Medical Doctor] -
--- NOTE | 2016-07-25 10:23 | GDS ---
[f rep st] DISCHARGE SUMMARY DISCHARGE DIAGNOSES: 1. Multiple rib fractures and possible thoracic compression fracture. 2. Severe osteoporosis. 3. Chronic prednisone due to chronic obstructive pulmonary disease. 4. Chronic back pain. 5. Hypothyroidism. HISTORY: This is a 80-year-old female who presented with severe left upper back pain. HOSPITAL COURSE: Patient had a very elevated D-dimer and thus wanted to have an evaluation for pulmo nary embolism. She refused IV contrast. She did get an echocardiogram, lower extremity Doppler, as well as V/Q scan, all which did not suggest any pulmonary embolism. She did have a thoracic spine x- ray, which showed several rib fractures. She does not know when they occurred. This is most likely due to her severe osteoporosis. She was monitored for the next several days and instituted pain control with IV medications. On day of discharge, she was able to tolerate p.o. medications. She is refusing to go to a senior living facility or rehab. She does want to go home. DISPOSITION: Home with home health. DISCHARGE MEDICATIONS: She is to resume her home medicines. In addition, she will be given oxycodon e 15 mg q.4 hours p.r.n., as well as oral Dilaudid. She is instructed to increase her vitamin D to 4 000 units daily as it was borderline low. She is also instructed to follow up with her rheumatologis t for further osteoporosis treatment. TIME SPENT: Greater than 30 minutes was spent in discharge. /[id number]/MODL
[2016-07-25] MEDS: IPRATROPIUM/ALBUTEROL 3 ML DEYVIAL IH SCH (10:27)
[2016-07-25] MEDS: FLUTICASONE/SALMETER 250/50MCG DISKUS IH SCH ×2 (10:27→10:39)
[2016-07-25 11:34] VITALS: BP 140/68; PULSE 90; RESP 15; O2SAT 94
== END 2016-07-25 11:31 | disposition home health service (06) | DRG 543 ==
LOC: EDUNIT# → F3E 18:36 → OBSVTOIN 21:58
PROVIDERS: ADMIT Internal Medicine; ATTEND Internal Medicine
DX: M80.08XA Age-related osteoporosis with current pathological fracture, vertebra(e), initial encounter for fracture (principal); J44.9 Chronic obstructive pulmonary disease, unspecified; J96.10 Chronic respiratory failure, unspecified whether with hypoxia or hypercapnia; G89.29 Other chronic pain; E03.9 Hypothyroidism, unspecified; Z96.643 Presence of artificial hip joint, bilateral; Z23 Encounter for immunization
CPT/HCPCS: 96374; 97116-GP; 97161-GP; 97162-GP; 97165-GO; 97530-GP; 97535-GO; A9540; A9558; G0009; G8978-GP-CJ; G8978-GP-CL; G8979-GP-CI; G8987-GO-CJ; G8987-GO-CK; G8988-GO-CI; J1170; J1650; J1885; Q9967

== ENCOUNTER 2016-07-25 13:29 | Inpatient (IN) | payer OTHER, MEDICAID ==
[2016-07-25] MEDS ORDERED: NS 250 ML IV ONE (14:22)
[2016-07-25 15:00] LABS: % IMMATURE GRANULYOCYTES 0.3 % (0.0-1.1); ABSOLUTE IMMATURE GRANULOCYTES 0.03 10^3/uL (0.00-0.10); ADD DIFF? NO; ADD MORPH? NO; ADD SCAN? NO; ATYPICAL LYMPHOCYTE FLAG 0 (0-99); FRAGMENT RBC FLAG 0 (0-99); HEMATOCRIT 38.9 % (38.0-47.0); HEMOGLOBIN 11.9 g/dL (12.6-16.3); LEFT SHIFT FLG 0 (0-99); LIPEMIA HEMOLYSIS FLAG 80 (0-99); MEAN CELL HEMOGLOBIN CONCENTR. 30.6 g/dL (32.4-36.7); MEAN CELL VOLUME 94.6 fL (81.5-99.8); MEAN PLATELET VOLUME 9.1 fL (8.7-11.7); PLATELET CLUMPS FLAG 0 (0-99); PLATELET COUNT 373 10^3/uL (150-400); RED BLOOD CELL COUNT 4.11 10^6/uL (4.18-5.33); RED CELL DISTRIBUTION WIDTH 16.2 % (11.5-15.2)
[2016-07-25 15:06] LABS: APTT 26.1 SEC (23.0-38.0); PROTIME(PATIENT) 13.1 SEC (12.0-15.0)
[2016-07-25 15:10] LABS: ANION GAP 9 mEq/L (8-16); CALCIUM 9.3 mg/dL (8.5-10.4); CARBON DIOXIDE 31 mEq/l (22-31); CHLORIDE 100 mEq/L (97-110); CREATININE 0.6 mg/dL (0.6-1.0); GLOMERULAR FILTRATION RATE > 60; GLUCOSE 97 mg/dL (70-100); POTASSIUM 4.6 mEq/L (3.5-5.2); SODIUM 140 mEq/L (134-144)
--- NOTE | 2016-07-25 15:15 | EDPHY ---
H & P Time Seen by Provider: 07/25/16 13:45 HPI/ROS: HPI Fainted. 80-year-old female by ambulance from home. This patient was recently admitted to the hospital for left-sided rib fractures x4. She was discharged home this morning. She lives by herself but she was with friends. She has to walk up 14 stairs to get to her apartment. She got into her apartment with her friends. She reports that she walked into her bedroom and had sudden onset lightheadedness and then lost consciousness. Her friends found her face down in a pile of magazines and books in between her night table and her bed. There initially unable to get her up. EMS was called again. They were able to get her of back up on her feet and sitting on her bed. She denies any associated palpitations, chest pain, shortness of breath, headache, numbness or weakness in her extremities. She has no complaints at this time. ROS: Constitutional: No fever, no chills. No weakness. Eyes: No discharge. No changes in vision. ENT: No sore throat. No nasal congestion or rhinorrhea. Respiratory: No cough. No shortness of breath. Cardiac: No chest pain, no palpitations. Gastrointestinal: No abdominal pain, no vomiting, no diarrhea. Genitourinary: No hematuria. No dysuria or increased frequency with urination. Musculoskeletal: No back pain. No neck pain. No myalgias or arthralgias. Skin: No rashes. Neurological: No headache. No focal weakness or altered sensation. Past medical history: Chronic back pain, on opioids, recent compression fracture with kyphoplasty, recent hip dislocation, COPD with hypoxic respiratory failure on 3 L of oxygen at home, hypothyroidism, severe arthritis, history of perforated peptic ulcer, spinal stenosis, multiple rib fractures as above. Social history: Lives by herself but does have friends nearby. She was discharged with home health care set up. She lives in an apartment that has 14 stairs to get to it. Physical Exam: General Appearance: Alert, no distress. This patient is responding to questions appropriately and in full sentences. This patient appears well- hydrated and well-nourished. Head: Normocephalic atraumatic. Eyes: Pupils equal and round no pallor or injection. No lid edema, erythema or injection. ENT, Mouth: Mucous membranes are moist. The pharyngeal tissues are unremarkable. No edema or swelling. No asymmetry suggestive of abscess. No erythema or exudates. Respiratory: There are no retractions, lungs are clear to auscultation anteriorly with good air movement bilaterally. Chest wall is stable on AP and lateral palpation. Cardiovascular: Regular rate and rhythm. Heart sounds are distant. No murmur. Gastrointestinal: Abdomen is soft and nontender, no masses, bowel sounds normal. No focal tenderness at McBurney's point. No Martinez sign. Neurological: Motor sensory function is grossly intact. Cranial nerves are normal. Gait is normal. Skin: Warm and dry, no rashes. No lacerations or abrasions. Musculoskeletal: Neck is supple and nontender. No midline cervical spine tenderness. Extremities are symmetrical. All joints range without pain or impingement. Psychiatric: No agitation. No depression. Database: EKG: EKG time is 3:15 p.m.; EKG shows a narrow complex normal sinus rhythm with a ventricular rate of 98. Underlying right bundle branch block. The ND, QT intervals are within normal limits. There are no ST-T wave changes indicative of ischemic or injury pattern. EKG compared to previous EKG dated July 20 and without changes. Interpreted by me. Imaging: Chest x-ray AP portable: Bibasilar atelectasis. Otherwise no acute cardiopulmonary pathology. Interpreted by me. Procedures: Emergency department course: IV placed. She was placed on a morgue librarian. She was started on IV normal saline with 250 cc to 500 cc to be given over the next hour. EKG and chest x- ray performed. Based on her recent history of rib fractures as well as her current social situation and current complaint the bring her to the emergency department I explained we would likely admit her to telemetry observation. She was in agreement. 4:00 p.m., patient re-evaluated. Results of blood work and EKG discussed with her. Plan for admission discussed. All of her questions were answered. 4:10 p.m., spoke with on-call hospitalist Dr. Tracey. Case discussed in detail with him. He accepts this patient for admission to the PCU. Patient will likely require placement in a [place] [facility] facility. Patient's remaining emergency department course under my care has been uneventful. She was admitted in stable condition. Differential Diagnosis: The differential diagnosis on this patient includes but is not limited to vasovagal syncope, medication reaction, arrhythmia. Pulmonary embolism, myocardial infarction, CVA, subarachnoid hemorrhage, hypoglycemia, seizure unlikely. This represents a partial list of diagnoses considered. These considerations are based on history, physical exam, past history, reassessment and diagnostic testing. Smoking Status: Former smoker Constitutional: Initial Vital Signs Temperature (C) 36.5 C 07/25/16 13:37 Heart Rate 103 H 07/25/16 13:37 Respiratory Rate 18 07/25/16 13:37 Blood Pressure 141/89 H 07/25/16 13:37 O2 Sat (%) 95 07/25/16 13:37 O2 Delivery Mode Nasal Cannula O2 (L/minute) 3 Allergies/Adverse Reactions: celecoxib [From Celebrex] Allergy (Severe, Verified 05/27/16 17:21) Weight gain, Fatigue, Increased Pain codeine [Codeine] Allergy (Severe, Verified 05/27/16 17:21) Nausea Vomiting duloxetine HCl [From Cymbalta] Allergy (Severe, Verified 05/27/16 17:21) Vomiting hydrocodone bitartrate [From Vicodin] Allergy (Severe, Verified 05/27/16 17:21) Nausea Vomiting levofloxacin [From Levaquin] Allergy (Severe, Verified 05/27/16 17:21) Swelling/neck,face,throat sulfamethoxazole [From Septra] Allergy (Severe, Verified 05/27/16 17:21) Nausea Vomiting trimethoprim [From Septra] Allergy (Severe, Verified 05/27/16 17:21) Nausea Vomiting aspirin Allergy (Intermediate, Verified 05/27/16 17:21) stomach pain cephalexin monohydrate [From Keflex] Allergy (Intermediate, Verified 05/27/16 17 :21) Stomach Pain clarithromycin [From Biaxin] Allergy (Intermediate, Verified 05/27/16 17:21) Stomach Pain orphenadrine Allergy (Intermediate, Verified 05/27/16 17:21) Stomach pain potassium clavula *RETIRED-02/23/12 [From Augmentin] Allergy (Intermediate, Verified 05/26/16 19:18) Itching tetracycline [Tetracycline] Allergy (Intermediate, Verified 05/27/16 17:21) Stomach Pain amoxicillin trihydrate [From Augmentin] Allergy (Verified 06/10/16 15:53) ciprofloxacin [From Cipro] Allergy (Verified 05/27/16 17:21) ciprofloxacin HCl [From Cipro] Allergy (Verified 05/27/16 17:21) potassium clavulanate [From Augmentin] Allergy (Verified 06/10/16 15:53) shrimp Allergy (Verified 06/10/16 15:53) ORPHENGESIC Allergy (Intermediate, Uncoded 12/16/15 15:19) Stomach Pain Terpin hydrate Allergy (Intermediate, Uncoded 12/16/15 15:19) Stomach pain Home Medications: Medication Instructions Recorded Ascorbic Acid [Vitamin C 500 mg 1,000 mg PO BID 08/26/13 (*)] Calcium Carbonate [Tums 500MG (*)] 1,000 - 1,500 mg PO DAILY PRN 08/26/13 Fluticasone/Salmeter 250/50Mcg 1 puffs IH BID 08/26/13 [Advair 250/50 (*)] Herbals/Supplements -Info Only 1 each PO AD 08/26/13 Ipratropium/Albuterol [Duoneb (*)] 3 ml IH BID 08/26/13 Sennosides [Senokot] 3 each PO HS 08/26/13 Pantoprazole Sodium [Protonix 40mg 40 mg PO DAILY 09/15/13 (*)] Alendronate Sodium [Fosamax 70 MG 70 mg PO BERNAL@07 03/29/16 (*)] Gabapentin [Neurontin 300 MG (*)] 300 mg PO BIDMEAL 03/29/16 Levothyroxine [Synthroid 75 mcg 75 mcg PO DAILY06 03/29/16 (*)] buPROPion XL [Wellbutrin 150mg XL] 150 mg PO DAILY 03/29/16 diphenhydrAMINE [Benadryl 25 MG 25 mg PO HS 05/17/16 (*)] Albuterol [Ventolin Hfa Inhaler] 2 puffs IH QID PRN 05/26/16 Dicyclomine [Bentyl 10 MG (*)] 10 mg PO QID PRN 05/26/16 Fluticasone Nasal [Flonase Nasal 1 sprays EACHNARE DAILY PRN 07/20/16 [place]] Gabapentin [Neurontin 300 MG (*)] 600 mg PO HS 07/20/16 Cholecalciferol Vit D3 [Vitamin D3 4,000 units PO DAILY #0 tab 07/25/16 (*)] HYDROmorphone HCL [Dilaudid 2 mg 2 - 4 mg PO Q4HRS PRN #30 tab 07/25/16 (*)] oxyCODONE IR [Oxycodone Ir (*)] 15 mg PO Q4 PRN #40 tab 07/25/16 predniSONE 7.5 mg PO DAILY #30 tab 07/25/16 Medical Decision Making - Data Points Laboratory Results: Laboratory Results 07/25/16 14:40 07/25/16 14:40 07/25/16 14:40 WBC 10.77 H 10^3/uL (3.80-9.50) RBC 4.11 L 10^6/uL (4.18-5.33) Hgb 11.9 L g/dL (12.6-16.3) Hct 38.9 % (38.0-47.0) MCV 94.6 fL (81.5-99.8) MCH 29.0 pg (27.9-34.1) MCHC 30.6 L g/dL (32.4-36.7) RDW 16.2 H % (11.5-15.2) Plt Count 373 10^3/uL (150-400) MPV 9.1 fL (8.7-11.7) Neut % (Auto) 79.0 H % (39.3-74.2) Lymph % (Auto) 11.9 L % (15.0-45.0) [place] % (Auto) 7.2 % (4.5-13.0) Eos % (Auto) 1.3 % (0.6-7.6) Baso % (Auto) 0.3 % (0.3-1.7) Nucleat RBC Rel Count 0.0 % (0.0-0.2) Absolute Neuts (auto) 8.51 H 10^3/uL (1.70-6.50) Absolute Lymphs (auto) 1.28 10^3/uL (1.00-3.00) Absolute Monos (auto) 0.78 10^3/uL (0.30-0.80) Absolute Eos (auto) 0.14 10^3/uL (0.03-0.40) Absolute Basos (auto) 0.03 10^3/uL (0.02-0.10) Absolute Nucleated RBC 0.00 10^3/uL (0-0.01) Immature Gran % 0.3 % (0.0-1.1) Immature Gran # 0.03 10^3/uL (0.00-0.10) PT 13.1 SEC (12.0-15.0) INR 1.00 (0.83-1.16) APTT 26.1 SEC (23.0-38.0) Sodium 140 mEq/L (134-144) Potassium 4.6 mEq/L (3.5-5.2) Chloride 100 mEq/L (97-110) Carbon Dioxide 31 mEq/l (22-31) Anion Gap 9 mEq/L (8-16) BUN 14 mg/dL (7-23) Creatinine 0.6 mg/dL (0.6-1.0) Estimated GFR > 60 Glucose 97 mg/dL (70-100) Calcium 9.3 mg/dL (8.5-10.4) Troponin I < 0.012 ng/mL (0-0.034) TSH 0.435 L uIU/mL (0.465-4.680) Medications Given: Discontinued Medications Sodium Chloride (Ns) 250 mls @ 0 mls/hr IV ONCE ONE PRN Reason: As Directed Stop: 07/25/16 14:23 Last Admin: 07/25/16 14:47 Dose: 250 mls Departure - Departure Disposition: [facility] Inpatient Acute Clinical Impression: Syncope Referrals: Alexis Ferrara MD [Primary Care Provider] - As per Instructions
--- NOTE | 2016-07-25 15:16 | CPEKG ---
Heart Rate: 98 RR Interval: 612 P-R Interval: 156 QRSD Interval: 124 QT Interval: 360 QTC Interval: 460 P [place]: 35 QRS [place]: 37 T Wave [place]: -23 EKG Severity - ABNORMAL ECG - EKG Impression: SINUS RHYTHM EKG Impression: RIGHT BUNDLE BRANCH BLOCK Electronically Signed By: Richar Sultana 25-Jul-2016 21:12:02
[2016-07-25 15:22] LABS: TROPONIN I < 0.012 ng/mL (0-0.034)
--- NOTE | 2016-07-25 15:35 | DX ---
Portable Chest, Single View 2:50 PM Indication: Chest Pain Comparison: Two-view chest dated July 20, 2016 Findings: Right basilar atelectasis has resolved since 5 days prior and new left basilar atelectasis has developed. Lungs are otherwise clear with unchanged mild diffuse peribronchial thickening. Border line cardiomegaly, intramedullary cement in the low thoracic vertebral body, and moderate to severe b ilateral shoulder arthritis is unchanged. Impression: Waxing and waning bibasilar atelectasis. Otherwise nothing acute.
[2016-07-25] MEDS ORDERED: HYDROmorphONE/DILAUDID 1 MG/ML SYR IVP ONE ×2 (16:13→18:17)
[2016-07-25] MEDS ORDERED: HYDROmorphONE/DILAUDID 1 MG/ML SYR ONE (18:08)
[2016-07-25] MEDS ORDERED: KETOROLAC 15 MG/1 ML SDV IVP ONE (18:17)
[2016-07-25] MEDS ORDERED: HYDROmorphONE/DILAUDID 1 MG/ML SYR IVP PRN (18:22)
[2016-07-25] MEDS ORDERED: ONDANSETRON 4 MG/2 ML VIAL IVP PRN (18:22)
[2016-07-25] MEDS ORDERED: ACETAMINOPHEN 325 MG TAB PO PRN (18:22)
--- NOTE | 2016-07-25 18:30 | PDGENHP ---
History and Physical History and Physical: HISTORY AND PHYSICAL ADMISSION NOTE CC:Syncope at home, back pain HISTORY: This woman had just been admitted July 20 through earlier today after presenting with back pain. There had been a question of whether there was chest pain. The patient went through during that admission an extensive workup including V/Q scan which was low probability, Doppler ultrasound of the legs negative, stress testing unrevealing, echocardiogram unrevealing. Essentially she eventually went to imaging for spine pictures and with CT it was determined that she had multiple fractured ribs adjacent to the articulations with spine leading to her pain. The patient worked with physical therapy. She was discharged home today with a Lidoderm patch in place. Friends accompanied her home. As she walked up the stairs and went into her room to agree her dog the patient suddenly had a brief syncope. The patient herself says she ended up lying on her face on the floor but tells me she did not fall, though she does not recall call any other specific way that she got onto the floor. The friends were with her reported to the ER physician that she was unconscious note for perhaps a minute. There was no chest pain, palpitations, shortness of breath, fever symptoms, nausea vomiting, vertigo, stroke-like symptoms. She has never had syncope in the past and has no known cardiac issues other than a finding of moderate mitral regurgitation on her echo a couple days ago. ROS: She denies any other symptoms on comprehensive 10 system review of systems at this time PAST MEDICAL HISTORY: Chronic back pain with chronic use of narcotic analgesic Compression fractures of spine Recent rib fractures Hip dislocation COPD with chronic respiratory failure on chronic steroid Hypothyroidism Osteoarthritis Peptic ulcer disease with perforation Moderate mitral regurgitation FAMILY MEDICAL HISTORY: no specific related family history at this time SOCIAL HISTORY: Lives alone in a private residence with her dog No tobacco or alcohol MEDICATIONS: her home medicines been reconciled by our pharmacist and I reviewed the list and ordered appropriate medicines at this time She does have an extensive list of medication allergies and these are also noted in the electronic record and I have reviewed that list. The list does include some narcotic analgesics. PHYSICAL EXAMINATION: Vital Signs: Stable without fever Cardiac Specialist: sinus rhythm on my review Examination: General: alert, oriented, good mentation, looks quite uncomfortable in fact is riding a bit Skin: warm, dry, good color, no rash HEENT: normal Neck: no mass or jvd Resps: relaxed Lungs: clear breath sounds Heart: regular, no murmur Abdomen: there is some tenderness particularly on the left posteriorly at about the 11th and 12th ribs and in the costovertebral angle, but no abdominal tenderness per se anteriorly; otherwise soft, nondistended, +BS, no mass Upper Extremities: normal Lower Extremities: no edema, warm No Bleeding or bruising Neurologic: normal speech/language, normal flower buncher or picker, no focal weakness IV site: looks normal LABORATORY DATA: [place] [address] with predominance of neutrophils. When she was admitted on July 20 the white count was [address] and had declined the next day to 8000. - chemistries and troponins have been unremarkable through all this -Her a urinalysis done on July 20 did show a small number of white blood cells and leukocyte esterase RADIOLOGY STUDIES: There are no new radiologic studies so far today As mentioned above she did have CT of spine, chest x-ray, echocardiogram, V/Q scan, Doppler ultrasound of the legs all during the previous hospital stay in the last several days ASSESSMENT: # SYNCOPE 1ST EVER -I suspect this is probably a vagal episode with multiple factors related to her fractures, pain, pain medicines etc; however given her age it would be rule out cardiac causes. The recent unremarkable echocardiogram and troponins are certainly reassuring but will watch on equipment monitor phototypesetting. I do not think she has PE or DVT and again and imaging was negative # FLANK PAIN AND TENDERNESS, RECENT PYURIA ON URINALYSIS 5 DAYS AGO, HIGH WHITE BLOOD CELL COUNT -My suspicion is that her current extreme pain in her back is related to her fall and previous rib fractures. However will recheck urinalysis and culture with some suspicion for UTI and pyelonephritis. There is no sign of sepsis PLANS: -placed on monitor her on the cardiac unit -Recheck urinalysis and urine culture treat as appropriate -Pain Management; at this time will add some nonsteroidal continue her usual pain medicines otherwise ; it may be useful to add a back brace and we can continue Lidoderm patches which were started - DVT prophylaxis -Fall risk precaution, therapy evaluations I have reviewed the patient's case in detail with Dr. Sultana I have reviewed the patient's past medical records as part of this assessment, including physicians notes, lab data, imaging studies of her previous admission
[2016-07-25] MEDS ORDERED: oxyCODONE IR 15 MG TAB PO PRN (18:40)
[2016-07-25] MEDS ORDERED: HYDROmorphONE/DILAUDID 2 MG TAB PO PRN (18:40)
[2016-07-25] MEDS ORDERED: FLUTICASONE NASAL 120 SPRAYS/16 GM MDI EACHNARE PRN (18:40)
[2016-07-25] MEDS ORDERED: DICYCLOMINE 20 MG TAB PO PRN (18:40)
[2016-07-25] MEDS ORDERED: CALCIUM CARBONATE 500 MG CHEWABLE TAB PO PRN (18:40)
[2016-07-25] MEDS ORDERED: NON-FORMULARY NEW DRUG (Albuterol 2 PUFFS) IH PRN (18:40)
[2016-07-25] MEDS: NS 1,000 ML IV SCH (18:45)
[2016-07-25 19:02] LABS: COLOR YELLOW; LEUKOCYTE ESTERASE,URINE TRACE (NEGATIVE); NITRITE,URINE NEGATIVE (NEGATIVE)
[2016-07-25] MEDS ORDERED: ALBUTEROL 60 PUFFS/8 GM MDI IH PRN (19:06)
[2016-07-25 19:07] LABS: BACTERIA TRACE /hpf (NONE SEEN); MUCUS TRACE /lpf (NONE-1+)
[2016-07-25 19:09] LABS: RBC,URINE NONE SEEN /hpf (0-3)
[2016-07-25] MEDS: ASCORBIC ACID 500 MG TAB PO SCH (20:02)
[2016-07-25] MEDS: PATCH REMOVAL 1 EA PATCH TD SCH ×2 (20:06→20:10)
[2016-07-25] MEDS: LIDOCAINE 5% 1 EA PATCH TD SCH (20:08)
[2016-07-25] MEDS ORDERED: GABAPENTIN 300 MG CAP PO SCH (21:00)
[2016-07-25] MEDS ORDERED: SENNOSIDES 1 TAB PO SCH (21:00)
[2016-07-25] MEDS: FLUTICASONE/SALMETER 250/50MCG DISKUS IH SCH (22:21)
[2016-07-25] MEDS: IPRATROPIUM/ALBUTEROL 3 ML DEYVIAL IH SCH (22:22)
[2016-07-26] MEDS: KETOROLAC 15 MG/1 ML SDV IVP PRN ×2 (03:22→09:13)
[2016-07-26] MEDS: NS 1,000 ML IV SCH (04:42)
[2016-07-26 05:27] LABS: % IMMATURE GRANULYOCYTES 0.4 % (0.0-1.1); ABSOLUTE IMMATURE GRANULOCYTES 0.04 10^3/uL (0.00-0.10); ADD DIFF? NO; ADD MORPH? NO; ADD SCAN? NO; ATYPICAL LYMPHOCYTE FLAG 10 (0-99); FRAGMENT RBC FLAG 0 (0-99); HEMATOCRIT 36.5 % (38.0-47.0); HEMOGLOBIN 11.2 g/dL (12.6-16.3); LEFT SHIFT FLG 0 (0-99); LIPEMIA HEMOLYSIS FLAG 80 (0-99); MEAN CELL HEMOGLOBIN 29.2 pg (27.9-34.1); MEAN CELL HEMOGLOBIN CONCENTR. 30.7 g/dL (32.4-36.7); MEAN CELL VOLUME 95.1 fL (81.5-99.8); PLATELET CLUMPS FLAG 30 (0-99); PLATELET COUNT 347 10^3/uL (150-400); RED BLOOD CELL COUNT 3.84 10^6/uL (4.18-5.33); RED CELL DISTRIBUTION WIDTH 16.4 % (11.5-15.2)
[2016-07-26 05:37] LABS: ANION GAP 6 mEq/L (8-16); CALCIUM 9.1 mg/dL (8.5-10.4); CARBON DIOXIDE 30 mEq/l (22-31); CHLORIDE 102 mEq/L (97-110); CREATININE 0.6 mg/dL (0.6-1.0); GLOMERULAR FILTRATION RATE > 60; GLUCOSE 72 mg/dL (70-100); POTASSIUM 3.8 mEq/L (3.5-5.2); SODIUM 138 mEq/L (134-144)
[2016-07-26] MEDS ORDERED: LEVOTHYROXINE 75 MCG TAB PO SCH (06:00)
[2016-07-26] MEDS ORDERED: GABAPENTIN 300 MG CAP PO SCH (08:00)
[2016-07-26] MEDS ORDERED: ENOXAPARIN 40 MG/0.4 ML SYR SC SCH (09:00)
[2016-07-26] MEDS ORDERED: buPROPion XL 150 MG TAB PO SCH (09:00)
[2016-07-26] MEDS ORDERED: PANTOPRAZOLE SODIUM 40 MG TAB PO SCH (09:00)
[2016-07-26] MEDS ORDERED: predniSONE 5 MG TAB PO SCH (09:00)
[2016-07-26] MEDS ORDERED: CHOLECALCIFEROL VIT D3 1,000 UNITS TAB PO SCH (09:00)
[2016-07-26] MEDS: oxyCODONE IR 5 MG TAB PO PRN ×2 (09:06→15:25)
[2016-07-26] MEDS: LIDOCAINE 5% 1 EA PATCH TD SCH (09:06)
[2016-07-26] MEDS: IPRATROPIUM/ALBUTEROL 3 ML DEYVIAL IH SCH (10:19)
[2016-07-26] MEDS: FLUTICASONE/SALMETER 250/50MCG DISKUS IH SCH (10:20)
[2016-07-26] MEDS: ASCORBIC ACID 500 MG TAB PO SCH (10:21)
[2016-07-26 10:42] VITALS: PULSE 96
[2016-07-26 11:01] VITALS: BP 114/74; RESP 16; TEMP 99; O2SAT 95
[2016-07-26] MEDS ORDERED: LACTULOSE 20 GM/30 ML UDCUP PO PRN (11:42)
[2016-07-26] MEDS ORDERED: MAGNESIUM HYDROXIDE 30 ML UDCUP PO PRN (11:42)
[2016-07-26] MEDS ORDERED: POLYETHYLENE GLYCOL 3350 17 GM PKT PO PRN (11:42)
[2016-07-26] MEDS ORDERED: BISACODYL 10 MG SUPP PR PRN (11:42)
--- NOTE | 2016-07-26 12:40 | PDIAF ---
- Diagnosis Diagnosis: Syncope, polypharmacy, rib fractures Code Status: Full Code - Medication Management Discharge Medications: Medications to Continue on Transfer Ascorbic Acid [Vitamin C 500 mg (*)] 1,000 mg PO BID 08/26/13 [Last Taken ] Calcium Carbonate [Tums 500MG (*)] 1,000 - 1,500 mg PO DAILY PRN 08/26/13 [Last Taken 07/25/16] Fluticasone/Salmeter 250/50Mcg [Advair 250/50 (*)] 1 puffs IH BID 08/26/13 [ Last Taken 07/25/16 09:00] Herbals/Supplements -Info Only 1 each PO AD 08/26/13 [Last Taken 07/20/16] Ipratropium/Albuterol [Duoneb (*)] 3 ml IH BID 08/26/13 [Last Taken 07/20/16] Sennosides [Senokot] 3 each PO HS 08/26/13 [Last Taken 07/19/16] Pantoprazole Sodium [Protonix 40mg (*)] 40 mg PO DAILY 09/15/13 [Last Taken 03/31] Alendronate Sodium [Fosamax 70 MG (*)] 70 mg PO BERNAL@07 03/29/16 [Last Taken 07/13] Gabapentin [Neurontin 300 MG (*)] 300 mg PO BIDMEAL 03/29/16 [Last Taken 09:00] Levothyroxine [Synthroid 75 mcg (*)] 75 mcg PO DAILY06 03/29/16 [Last Taken 03/31] buPROPion XL [Wellbutrin 150mg XL] 150 mg PO DAILY 03/29/16 [Last Taken 07/25/16 ] diphenhydrAMINE [Benadryl 25 MG (*)] 25 mg PO HS 05/17/16 [Last Taken 07/24/16] Albuterol [Ventolin Hfa Inhaler] 2 puffs IH QID PRN 05/26/16 [Last Taken Unknown ] Fluticasone Nasal [Flonase Nasal [place]] 1 sprays EACHNARE DAILY PRN 07/20/16 [ Last Taken 07/25/16] Gabapentin [Neurontin 300 MG (*)] 600 mg PO HS 07/20/16 [Last Taken 07/24/16] Cholecalciferol Vit D3 [Vitamin D3 (*)] 4,000 units PO DAILY #0 tab 07/25/16 [ Last Taken 07/25/16] Dicyclomine HCl 20 mg PO QID PRN 07/25/16 [Last Taken Unknown] predniSONE 7.5 mg PO DAILY #30 tab 07/25/16 [Last Taken 07/25/16] Acetaminophen [Tylenol 325mg (*)] 650 mg PO Q4HRS PRN #0 tab 07/26/16 [Last Taken Unknown] Lidocaine 5% [Lidoderm 5% Patch (*)] 1 ea TD DAILY patch 07/26/16 [Last Taken Unknown] Patch Removal 1 ea TD DAILY21 patch 07/26/16 [Last Taken Unknown] Polyethylene Glycol 3350 [Miralax 17 gm (*)] 17 gm PO DAILY PRN #0 pkt 07/26/16 [Last Taken Unknown] Sennosides/Docusate Sodium [Senokot-S] 1 - 2 tab PO BID tab 07/26/16 [Last Taken Unknown] oxyCODONE IR [Oxycodone Ir (*)] 5 - 15 mg PO Q4HRS PRN #30 tab 07/26/16 [Last Taken Unknown] Snf Antibiotics: NA Discharge Medications: Refer to the Discharge Home Medication list for PRN reason. PICC Care - Routine: N/A - Orders Services needed: Registered Nurse, Physical Therapy, Occupational Therapy Oxygen: 2-3L [place] continuous Diet Recommendation: no restrictions on diet [place]: Not applicable Activity/Weight Bearing Restrictions: as tolerates with walker - Follow Up Care Current Providers and Referrals: Alexis Ferrara MD [Primary Care Provider] - As per Instructions
--- NOTE | 2016-07-26 12:40 | PDDCSUM ---
Discharge Summary Discharge Summary: DISCHARGE SUMMARY FOLLOW-UP ITEMS: None DATE OF ADMISSION: 07/25/2016 DATE OF DISCHARGE: 07/26/2016 DISCHARGE DIAGNOSES: 1. Syncope 2. Chronic back pain with continuous opiate dependency 3. Recent rib fractures 4. COPD with chronic hypoxic respiratory failure 5. Peptic ulcer disease with history of perforation 6. Atelectasis CONSULTATIONS: None PROCEDURES / IMAGING: Chest x-ray demonstrating no evidence of aspiration cap CHIEF COMPLAINT: Acute syncope SUBJECTIVE: Patient is feeling well at time of discharge, she is very anxious about her presenting symptoms about her ability to care for self PHYSICAL EXAM ON DISCHARGE: Systolic blood pressure is 1/30, heart rate 80, afebrile overnight, satting well on 3 L nasal cannula, motor strength is 5/5 bilateral upper and lower extremities, there are no effusions over the knees, heart rate is regular with regular rhythm, 1 6 systolic murmur at the sternum and apex, lung exam demonstrates clear to auscultation bilaterally without any inspiratory crackles or expiratory wheezes, abdomen is soft nontender nondistended LABS ON DISCHARGE: Creatinine 0.6, potassium 3.8, white blood count 00866, hemoglobin 11.2, urinalysis unremarkable, TSH 0.4 HOSPITAL COURSE BY PROBLEM: 1. Syncope. Patient experienced a syncopal event in the setting deconditioning plus polypharmacy with narcotics plus exertion and unclear use of her home supplemental oxygen. Patient was recently discharged home and she had ambulated up her stairs for the very 1st time experienced possible loss of consciousness. That being said, the patient has been taking a combination of Dilaudid and oxycodone and is unclear about the exact context of her event. She most recently had a negative stress test, negative V/Q scan, unremarkable echocardiogram, and it is most likely that the patient's event was provoked by deconditioning, narcotics, possible under use of supplemental oxygen. Consequently no further workup or intervention is indicated as the patient has no evidence of infection, her TSH is reasonably suppressed, and she has no significant electrolyte abnormalities. Will recommend the patient work with physical and occupational therapy at a detention facility to improve her strength prior to being discharged home. Would also recommend that the patient attempt to streamline her narcotic use which will be further discussed below. 2. Chronic pain with continuous opiate dependency. The patient has recently been diagnosed with acute rib fractures and she was discharged on a combination of Dilaudid and oxycodone. Sounds like the patient has been taking both of these medications and is unclear as to the exact amounts. I recommended that she utilize only oxycodone immediate release with a dose range between 5 and 15 mg as needed. This can be further up titrated if necessary, but I would avoid polypharmacy with additional opiates. She also be placed on a bowel regimen to avoid constipation. 3. Atelectasis. Present on chest x-ray, most likely secondary to under ventilation, continue incentive spirometer. 4. Rib fractures. Patient experienced recent rib fractures and this is the source of her pain. Do not need further investigation, and the patient did have x-rays of her bilateral knees which demonstrated no evidence of traumatic fractures. 5. COPD with chronic hypoxic respiratory failure. Patient was continued on supplemental oxygen. 6. Peptic ulcer disease with history of perforation. Patient will be continued on PPI. DISCHARGE MEDICATIONS: Please see official discharge medication reconciliation sheet in chart , discontinuation of Dilaudid, reduction in dosage of oxycodone immediate release to 5-15 mg as needed. DISCHARGE INSTRUCTIONS: Patient should be seen promptly by her primary care provider after discharge from detention facility.
--- NOTE | 2016-07-26 14:31 | DX ---
Right Knee, 2 Views Indication: Mechanical fall. Findings: There is a small joint effusion. There is severe tricompartmental osteoarthritis of the rig ht knee, with joint space narrowing of the medial femorotibial compartment, patellofemoral compartmen t, and subluxation between the femur and the tibia. No fracture. Impression: 1. Small joint effusion that could be degenerative. 2. Severe tricompartmental osteoarthritis. 3. Nothing acute radiographically.
--- NOTE | 2016-07-26 14:49 | DX ---
Left Knee, 2 Views Indication: Fell earlier today. Findings: Tricompartmental osteoarthritis of the left knee is unchanged compared to September 13, 2015, w ith significant osteoarthritis of the patellofemoral joint and the femorotibial joints. No fracture o r dislocation. No joint effusion. Impression: Osteoarthritis. Nothing acute.
--- NOTE | 2016-07-26 15:41 | PDIAF ---
- Diagnosis Diagnosis: Syncope, polypharmacy, rib fractures Code Status: Full Code - Medication Management Discharge Medications: Medications to Continue on Transfer Ascorbic Acid [Vitamin C 500 mg (*)] 1,000 mg PO BID 08/26/13 [Last Taken ] Calcium Carbonate [Tums 500MG (*)] 1,000 - 1,500 mg PO DAILY PRN 08/26/13 [Last Taken 07/25/16] Fluticasone/Salmeter 250/50Mcg [Advair 250/50 (*)] 1 puffs IH BID 08/26/13 [ Last Taken 07/25/16 09:00] Herbals/Supplements -Info Only 1 each PO AD 08/26/13 [Last Taken 07/20/16] Sennosides [Senokot] 3 each PO HS 08/26/13 [Last Taken 07/19/16] Pantoprazole Sodium [Protonix 40mg (*)] 40 mg PO DAILY 09/15/13 [Last Taken 03/31] Alendronate Sodium [Fosamax 70 MG (*)] 70 mg PO BERNAL@07 03/29/16 [Last Taken 07/13] Gabapentin [Neurontin 300 MG (*)] 300 mg PO BIDMEAL 03/29/16 [Last Taken 09:00] Levothyroxine [Synthroid 75 mcg (*)] 75 mcg PO DAILY06 03/29/16 [Last Taken 03/31] buPROPion XL [Wellbutrin 150mg XL] 150 mg PO DAILY 03/29/16 [Last Taken 07/25/16 ] diphenhydrAMINE [Benadryl 25 MG (*)] 25 mg PO HS 05/17/16 [Last Taken 07/24/16] Albuterol [Ventolin Hfa Inhaler] 2 puffs IH QID PRN 05/26/16 [Last Taken Unknown ] Fluticasone Nasal [Flonase Nasal [place]] 1 sprays EACHNARE DAILY PRN 07/20/16 [ Last Taken 07/25/16] Gabapentin [Neurontin 300 MG (*)] 600 mg PO HS 07/20/16 [Last Taken 07/24/16] Cholecalciferol Vit D3 [Vitamin D3 (*)] 4,000 units PO DAILY #0 tab 07/25/16 [ Last Taken 07/25/16] Dicyclomine HCl 20 mg PO QID PRN 07/25/16 [Last Taken Unknown] predniSONE 7.5 mg PO DAILY #30 tab 07/25/16 [Last Taken 07/25/16] Acetaminophen [Tylenol 325mg (*)] 650 mg PO Q4HRS PRN #0 tab 07/26/16 [Last Taken Unknown] Benzonatate [Tessalon Pearles (RX)] 100 mg PO TID PRN #30 cap 07/26/16 [Last Taken Unknown] Ipratropium/Albuterol [Duoneb (*)] 3 ml IH QID deyvial 07/26/16 [Last Taken Unknown] Lidocaine 5% [Lidoderm 5% Patch (*)] 1 ea TD DAILY patch 07/26/16 [Last Taken Unknown] Patch Removal 1 ea TD DAILY21 patch 07/26/16 [Last Taken Unknown] Polyethylene Glycol 3350 [Miralax 17 gm (*)] 17 gm PO DAILY PRN #0 pkt 07/26/16 [Last Taken Unknown] Sennosides/Docusate Sodium [Senokot-S] 1 - 2 tab PO BID tab 07/26/16 [Last Taken Unknown] oxyCODONE IR [Oxycodone Ir (*)] 5 - 15 mg PO Q4HRS PRN #30 tab 07/26/16 [Last Taken Unknown] predniSONE 7.5 mg PO DAILY tab 07/26/16 [Last Taken Unknown] predniSONE 40 mg PO DAILY #10 tab 07/26/16 [Last Taken Unknown] Jail Antibiotics: NA Discharge Medications: Refer to the Discharge Home Medication list for PRN reason. PICC Care - Routine: N/A - Orders Services needed: Registered Nurse, Physical Therapy, Occupational Therapy Oxygen: 2-3L NC continuous Diet Recommendation: no restrictions on diet Ozuna: Not applicable Activity/Weight Bearing Restrictions: as tolerates with walker - Follow Up Care Current Providers and Referrals: Alexis Ferrara MD [Primary Care Provider] - As per Instructions Salvatore Jimenez MD [Medical Doctor] - 1-2 days (Please call on Thursday and get soonest available appointment)
[2016-07-26] MEDS ORDERED: SENNOSIDES/DOCUSATE SODIUM TAB PO SCH (21:00)
[2016-07-27] MEDS ORDERED: ALENDRONATE SODIUM 70 MG TAB PO SCH (07:00)
== END 2016-07-26 15:35 | DRG 312 ==
LOC: EDUNIT# → F2W 18:29
PROVIDERS: ADMIT Internal Medicine; ATTEND Internal Medicine
DX: R55 Syncope and collapse (principal); F11.20 Opioid dependence, uncomplicated; J96.11 Chronic respiratory failure with hypoxia; J98.11 Atelectasis; G89.29 Other chronic pain; J44.9 Chronic obstructive pulmonary disease, unspecified; K27.9 Peptic ulcer, site unspecified, unspecified as acute or chronic, without hemorrhage or perforation; E03.9 Hypothyroidism, unspecified; S22.49XD Multiple fractures of ribs, unspecified side, subsequent encounter for fracture with routine healing; T40.2X5A Adverse effect of other opioids, initial encounter
CPT/HCPCS: 96374; 97161-GP; 97165-GO; G8978-GP-CJ; G8979-GP-CI; G8987-GO-CK; G8988-GO-CI; J1170; J1650; J1885

== ENCOUNTER 2016-08-11 11:14 | Inpatient (IN) | payer OTHER, MEDICAID ==
--- NOTE | 2016-08-11 11:38 | EDPHY ---
H & P Stated Complaint: SUbsternal CP ointermittent since 0300 Time Seen by Provider: 08/11/16 11:30 - Personal History Current Tetanus Diphtheria and Acellular Pertussis (TDAP): Yes Tetanus Vaccine Date: 2014 - Medical/Surgical History Hx Asthma: No Hx Chronic Respiratory Disease: Yes Hx Diabetes: No Hx Cardiac Disease: No Hx Renal Disease: No Hx Cirrhosis: No Hx Alcoholism: No Hx HIV/AIDS: No Hx Splenectomy or Spleen Trauma: No Other PMH: appy, hypothyroid, arthritis, copd, tanja hip replacements,HIP REVISION 03/2016, prolapsed bladder, "kidney stone surgery",. spinal stenosis. chronic pain. scoliosis. Posterior hip dislocation x2. T9 compression fracture with kyphoplasty. Surgery on T9 vertebrae - Social History Smoking Status: Former smoker Constitutional: Initial Vital Signs Temperature (C) 36.6 C 08/11/16 11:15 Heart Rate 35 L 08/11/16 11:15 Respiratory Rate 18 08/11/16 11:15 Blood Pressure 113/74 08/11/16 11:15 O2 Sat (%) 95 08/11/16 11:15 O2 Delivery Mode Nasal Cannula O2 (L/minute) 3 Allergies/Adverse Reactions: celecoxib [From Celebrex] Allergy (Severe, Verified 08/11/16 11:25) Weight gain, Fatigue, Increased Pain codeine [Codeine] Allergy (Severe, Verified 08/11/16 11:25) Nausea Vomiting duloxetine HCl [From Cymbalta] Allergy (Severe, Verified 08/11/16 11:25) Vomiting hydrocodone bitartrate [From Vicodin] Allergy (Severe, Verified 08/11/16 11:25) Nausea Vomiting levofloxacin [From Levaquin] Allergy (Severe, Verified 08/11/16 11:25) Swelling/neck,face,throat sulfamethoxazole [From Septra] Allergy (Severe, Verified 08/11/16 11:25) Nausea Vomiting trimethoprim [From Septra] Allergy (Severe, Verified 08/11/16 11:25) Nausea Vomiting aspirin Allergy (Intermediate, Verified 08/11/16 11:25) stomach pain cephalexin monohydrate [From Keflex] Allergy (Intermediate, Verified 08/11/16 11 :25) Stomach Pain clarithromycin [From Biaxin] Allergy (Intermediate, Verified 08/11/16 11:25) Stomach Pain orphenadrine Allergy (Intermediate, Verified 08/11/16 11:25) Stomach pain potassium clavula *RETIRED-02/23/12 [From Augmentin] Allergy (Intermediate, Verified 08/11/16 11:25) Itching tetracycline [Tetracycline] Allergy (Intermediate, Verified 08/11/16 11:25) Stomach Pain amoxicillin trihydrate [From Augmentin] Allergy (Verified 08/11/16 11:25) ciprofloxacin [From Cipro] Allergy (Verified 08/11/16 11:25) ciprofloxacin HCl [From Cipro] Allergy (Verified 08/11/16 11:25) potassium clavulanate [From Augmentin] Allergy (Verified 08/11/16 11:25) shrimp Allergy (Verified 08/11/16 11:25) ORPHENGESIC Allergy (Intermediate, Uncoded 12/16/15 15:19) Stomach Pain Terpin hydrate Allergy (Intermediate, Uncoded 12/16/15 15:19) Stomach pain Home Medications: Medication Instructions Recorded Ascorbic Acid [Vitamin C 500 mg 1,000 mg PO BID 08/26/13 (*)] Calcium Carbonate [Tums 500MG (*)] 1,000 - 1,500 mg PO DAILY PRN 08/26/13 Fluticasone/Salmeter 250/50Mcg 1 puffs IH BID 08/26/13 [Advair 250/50 (*)] Herbals/Supplements -Info Only 1 each PO AD 08/26/13 Sennosides [Senokot] 3 each PO HS 08/26/13 Pantoprazole Sodium [Protonix 40mg 40 mg PO DAILY 09/15/13 (*)] Alendronate Sodium [Fosamax 70 MG 70 mg PO BERNAL@07 03/29/16 (*)] Gabapentin [Neurontin 300 MG (*)] 300 mg PO BIDMEAL 03/29/16 Levothyroxine [Synthroid 75 mcg 75 mcg PO DAILY06 03/29/16 (*)] buPROPion XL [Wellbutrin 150mg XL] 150 mg PO DAILY 03/29/16 diphenhydrAMINE [Benadryl 25 MG 25 mg PO HS 05/17/16 (*)] Albuterol [Ventolin Hfa Inhaler] 2 puffs IH QID PRN 05/26/16 Fluticasone Nasal [Flonase Nasal 1 sprays EACHNARE DAILY PRN 07/20/16 [place]] Gabapentin [Neurontin 300 MG (*)] 600 mg PO HS 07/20/16 Cholecalciferol Vit D3 [Vitamin D3 4,000 units PO DAILY #0 tab 07/25/16 (*)] Dicyclomine HCl 20 mg PO QID PRN 07/25/16 predniSONE 7.5 mg PO DAILY #30 tab 07/25/16 Acetaminophen [Tylenol 325mg (*)] 650 mg PO Q4HRS PRN #0 tab 07/26/16 Benzonatate [Tessalon Pearles (RX)] 100 mg PO TID PRN #30 cap 07/26/16 Ipratropium/Albuterol [Duoneb (*)] 3 ml IH QID deyvial 07/26/16 Lidocaine 5% [Lidoderm 5% Patch 1 ea TD DAILY patch 07/26/16 (*)] Patch Removal 1 ea TD DAILY21 patch 07/26/16 Polyethylene Glycol 3350 [Miralax 17 gm PO DAILY PRN #0 pkt 07/26/16 17 gm (*)] Sennosides/Docusate Sodium 1 - 2 tab PO BID tab 07/26/16 [Senokot-S] oxyCODONE IR [Oxycodone Ir (*)] 5 - 15 mg PO Q4HRS PRN #30 tab 07/26/16 predniSONE 7.5 mg PO DAILY tab 07/26/16 predniSONE 40 mg PO DAILY #10 tab 07/26/16 Medical Decision Making ED Course/Re-evaluation: CHIEF COMPLAINT: Chest pain, dyspnea, bradycardia HISTORY OF PRESENT ILLNESS: The patient is a 80 y/o female arriving with her friend complaining substernal chest pain radiating to her left shoulder with associated dyspnea that woke her from sleep this morning. She has a history of COPD with chronic respiratory failure and chronic pain with chronic opioid use. She notably was admitted on 07/25/16 for syncope and back pain that was thought to likely be a vasovagal episode. This morning she felt "terrible" and reports her home monitor showed a HR of 35. She took Percocet and Dilaudid this morning for the pain with no alleviation of her symptoms. She denies previous cardiac history. REVIEW OF SYSTEMS: A 10 point review of systems was performed and is negative with the exception of the elements mentioned in the history of present illness. PHYSICAL EXAM: General Appearance: Alert, well hydrated, appropriate, and non-toxic appearing. Head: Atraumatic without scalp tenderness or obvious injury Eyes: Pupils equal, round, reactive to light and accommodation, EOMI, no trauma , no injection. Ears: Clear bilaterally, no perforation, normal landmarks Nose: Atraumatic, no rhinorrhea, clear. Throat: There is no erythema or exudates, no lesions, normal tonsils, mucus membranes moist. Neck: Supple, 2+ carotid upstroke, non-tender, no lymphadenopathy. Respiratory: No retractions, no distress, no wheezes, and no accessory muscle use. Lungs are clear to auscultation bilaterally. Cardiovascular: Regular rate and rhythm, no murmurs, rubs, or gallops. Bilateral carotid, radial, dorsalis pedis, and posterior tibial pulses intact. Good capillary refill all extremities. Gastrointestinal: Abdomen is soft, non-tender, non-distended, no masses, no rebound, no guarding, no peritoneal signs. Musculoskeletal: Normal active ROM of all extremities, atraumatic. Neurological: Alert, appropriate, and interactive. The patient has normal DTRs and non-focal cranial nerves, motor, sensory, and cerebellar exam. Skin: No rashes, good turgor, no nodules on palpation. PAST MEDICAL HISTORY: COPD with chronic respiratory failure, mitral regurgitation, chronic pain with chronic opioid use, osteoarthritis, hypothyroidism, peptic ulcer disease PAST SURGICAL HISTORY: back surgery SOCIAL HISTORY: Friend/family member at bedside. 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 Lives alone at private residence. PCP: Dr. Ferrara Reviewed admission note from 07/25/16 for syncope and back pain. DIAGNOSTICS/PROCEDURES/CRITICAL CARE TIME: The 12 lead EKG was interpreted by myself. Complete heart block rate 35. See hard copy and/or "tracemaster" electronic copy for interpretation. Study: Chest x-ray Indication: Pain, dyspnea Results: Chest x-ray was obtained. The results of the study are cardiomegaly, no acute process. Radiologist report pending. I viewed the images myself on the PACS system. I spent a total of 40 minutes of critical care time including but not limited to obtaining history, performing a physical exam, ordering interventions and the bedside monitoring of those interventions, collecting and interpreting tests and discussion with consultants but not including time spent performing procedures. DIFFERENTIAL DIAGNOSIS: The differential diagnosis for the patient's chest pain included but was not limited to complete heart block, myocardial ischemia, pulmonary embolus, chest wall pain, pleural inflammation, and pulmonary infectious causes. MEDICAL DECISION MAKING: This is a chronically-ill appearing 80 y/o female who presents in complete heart block with chest pain and dyspnea that woke her from sleep this morning. Initial cardiac tracing shows complete heart block with rate in the 30-40 range. 1132: IVs established, patient placed on pacer pads, chest x-ray ordered. HR 35. Dr. Nicole paged. 1203: Consulted with Dr. Nicole, cardiology. He plans to place a pacer for patient today. Plan to admit for complete heart block. 1206: Spoke with hospitalist service. Dr. Azul accepts admission. - Data Points Laboratory Results: Laboratory Results 08/11/16 11:50 08/11/16 08/11/16 08/11/16 11:50 11:50 11:50 WBC 9.59 10^3/uL H 10^3/uL (3.80-9.50) RBC 3.96 10^6/uL L 10^6/uL (4.18-5.33) Hgb 11.2 g/dL L g/dL (12.6-16.3) Hct 37.3 % L % (38.0-47.0) MCV 94.2 fL fL (81.5-99.8) MCH 28.3 pg pg (27.9-34.1) MCHC 30.0 g/dL L g/dL (32.4-36.7) RDW 16.3 % H % (11.5-15.2) Plt Count 415 10^3/uL H 10^3/uL (150-400) MPV 8.8 fL fL (8.7-11.7) Neut % (Auto) 57.8 % % (39.3-74.2) Lymph % (Auto) 27.7 % % (15.0-45.0) Price % (Auto) 10.5 % % (4.5-13.0) Eos % (Auto) 3.3 % % (0.6-7.6) Baso % (Auto) 0.3 % % (0.3-1.7) Nucleat RBC Rel Count 0.0 % % (0.0-0.2) Absolute Neuts (auto) 5.53 10^3/uL 10^3/uL (1.70-6.50) Absolute Lymphs (auto) 2.66 10^3/uL 10^3/uL (1.00-3.00) Absolute Monos (auto) 1.01 10^3/uL H 10^3/uL (0.30-0.80) Absolute Eos (auto) 0.32 10^3/uL 10^3/uL (0.03-0.40) Absolute Basos (auto) 0.03 10^3/uL 10^3/uL (0.02-0.10) Absolute Nucleated RBC 0.00 10^3/uL 10^3/uL (0-0.01) Immature Gran % 0.4 % % (0.0-1.1) Immature Gran # 0.04 10^3/uL 10^3/uL (0.00-0.10) PT Pending INR Pending APTT Pending Sodium Pending Potassium Pending Chloride Pending Carbon Dioxide Pending Anion Gap Pending BUN Pending Creatinine Pending Estimated GFR Pending Glucose Pending Calcium Pending Magnesium Pending Troponin I Pending NT-Pro-B Natriuret Pep Pending Medications Given: Discontinued Medications Hydromorphone HCl (Dilaudid) 0.5 mg IVP EDNOW ONE Stop: 08/11/16 12:01 Last Admin: 08/11/16 12:05 Dose: 0.5 mg Departure - Departure Disposition: [facility] Inpatient Acute Clinical Impression: Complete heart block Condition: Fair Referrals: Patient,NotPresent [Primary Care Provider] - As per Instructions Report Scribed for: Jorden Kay Report Scribed by: Desire London Date of Report: 08/11/16 Time of Report: 11:36
--- NOTE | 2016-08-11 11:56 | CPEKG ---
Heart Rate: 35 RR Interval: 1714 QRSD Interval: 128 QT Interval: 524 QTC Interval: 400 P [place]: 0 QRS [place]: 243 T Wave [place]: 67 EKG Severity - ABNORMAL ECG - EKG Impression: COMPLETE AV BLOCK, A-RATE 115 EKG Impression: SUPERIOR QRS AXIS EKG Impression: PROBABLE POSTERIOR INFARCT Electronically Signed By: Jorden Kay 11-Aug-2016 15:18:59
[2016-08-11] MEDS ORDERED: HYDROmorphONE/DILAUDID 1 MG/ML SYR IVP ONE (12:00)
[2016-08-11 12:02] LABS: % IMMATURE GRANULYOCYTES 0.4 % (0.0-1.1); ABSOLUTE IMMATURE GRANULOCYTES 0.04 10^3/uL (0.00-0.10); ADD DIFF? NO; ADD MORPH? NO; ADD SCAN? NO; ATYPICAL LYMPHOCYTE FLAG 10 (0-99); FRAGMENT RBC FLAG 0 (0-99); HEMATOCRIT 37.3 % (38.0-47.0); HEMOGLOBIN 11.2 g/dL (12.6-16.3); LEFT SHIFT FLG 0 (0-99); LIPEMIA HEMOLYSIS FLAG 80 (0-99); MEAN CELL HEMOGLOBIN 28.3 pg (27.9-34.1); MEAN CELL VOLUME 94.2 fL (81.5-99.8); MEAN PLATELET VOLUME 8.8 fL (8.7-11.7); PLATELET CLUMPS FLAG 0 (0-99); PLATELET COUNT 415 10^3/uL (150-400); RED BLOOD CELL COUNT 3.96 10^6/uL (4.18-5.33); RED CELL DISTRIBUTION WIDTH 16.3 % (11.5-15.2)
[2016-08-11] MEDS ORDERED: DIAZEPAM 5 MG TAB PO ONE (12:12)
[2016-08-11] MEDS ORDERED: BACITRACIN IRRIGATION/NS 50,000 UNITS/1,000 ML BTL IRR ONE (12:12)
[2016-08-11] MEDS ORDERED: diphenhydrAMINE 25 MG CAP PO ONE (12:12)
[2016-08-11] MEDS ORDERED: NS 1,000 ML IV SCH ×2 (12:15→13:30)
[2016-08-11 12:23] LABS: APTT 27.7 SEC (23.0-38.0); INR 1.08 (0.83-1.16); PROTIME(PATIENT) 13.9 SEC (12.0-15.0)
[2016-08-11 12:31] LABS: ANION GAP 9 mEq/L (8-16); CALCIUM 9.6 mg/dL (8.5-10.4); CARBON DIOXIDE 28 mEq/l (22-31); CHLORIDE 106 mEq/L (97-110); CREATININE 0.6 mg/dL (0.6-1.0); GLOMERULAR FILTRATION RATE > 60; GLUCOSE 72 mg/dL (70-100); MAGNESIUM 1.8 mg/dL (1.6-2.3); POTASSIUM 4.6 mEq/L (3.5-5.2); SODIUM 143 mEq/L (134-144)
[2016-08-11 12:42] LABS: TROPONIN I < 0.012 ng/mL (0-0.034)
[2016-08-11] MEDS ORDERED: VANCOMYCIN 1.5 GM in D5W 250 ML IV ONE (13:05)
[2016-08-11] MEDS ORDERED: ONDANSETRON DISINTEGRATING 4 MG TAB PO PRN (13:29)
[2016-08-11] MEDS ORDERED: PROMETHAZINE HCL 25 MG/ML INJ IVP PRN (13:29)
[2016-08-11] MEDS ORDERED: ONDANSETRON 4 MG/2 ML VIAL IVP PRN (13:29)
[2016-08-11] MEDS ORDERED: ACETAMINOPHEN 325 MG TAB PO PRN ×2 (13:29→13:32)
[2016-08-11] MEDS ORDERED: oxyCODONE IR 5 MG TAB PO PRN (13:29)
[2016-08-11] MEDS ORDERED: LORazepam 0.5 MG TAB PO PRN (13:29)
[2016-08-11] MEDS ORDERED: fentaNYL 100 MCG/2 ML INJ ONE ×2 (13:30→14:04)
[2016-08-11] MEDS ORDERED: MIDAZOLAM 2 MG/2 ML VIAL ONE ×2 (13:30→14:04)
[2016-08-11] MEDS ORDERED: LIDOCAINE 1% 30 ML SDV ONE ×2 (13:30→14:19)
[2016-08-11] MEDS ORDERED: BUPIVACAINE 0.5% 30 ML SDV ONE (13:31)
[2016-08-11] MEDS ORDERED: IOPAMIDOL (ISOVUE-300) 100 ML BTL IV ONE (13:31)
[2016-08-11] MEDS ORDERED: LIDO/EPI 1% **for epidural** 30 ML SDV ONE (13:31)
[2016-08-11] MEDS ORDERED: HYDROmorphONE/DILAUDID 2 MG TAB PO PRN (13:32)
[2016-08-11] MEDS ORDERED: DICYCLOMINE 20 MG TAB PO PRN (13:32)
[2016-08-11] MEDS ORDERED: CALCIUM CARBONATE 500 MG CHEWABLE TAB PO PRN (13:32)
[2016-08-11] MEDS ORDERED: DIAZEPAM 5 MG TAB PO PRN (13:32)
[2016-08-11] MEDS ORDERED: NON-FORMULARY NEW DRUG (Albuterol 2 PUFFS) IH PRN (13:32)
[2016-08-11] MEDS ORDERED: FLUTICASONE NASAL 120 SPRAYS/16 GM MDI EACHNARE PRN (13:32)
--- NOTE | 2016-08-11 14:10 | SUROPNOTE ---
[facility] Operative Report - Surgery Date of Procedure: 08/11/16 Indication: This patient is a 80 year old woman who presented to the emergency department today with acute substernal chest pain and dyspnea. Recent history of syncopal episode. EKG today demonstrates complete heart block, class I indication for permanent pacemaker placement. Procedure Performed: 1. Placement of a dual chamber permanent pacemaker Description of procedure: Risks, benefits, and alternatives were discussed in detail. Informed consent was obtained. We discussed various options for devices. Patient was brought to the catheterization laboratory where a time out was performed. Left subclavian venography was performed via left arm IV, showing anatomically normal and widely patent left subclavian vein. Left anterior chest was sterilely prepped and draped. Patient received Vancomycin 1.5g intravenously. 2% lidocaine and 0.5 % Marcaine were utilized for local anesthetic. A skin incision was made with a # 10 blade and carried down to pectoralis fascia using Bovie, and bleeders were cauterized. Site for the pocket was anesthetized with lidocaine with epinephrine. The pocket was created by blunt dissection and packed with single Ray-Brittany antibiotic-soaked gauze. The patient was placed in Trendelenburg position. Then, under fluoroscopic guidance, the subclavian vein was punctured with an 18-gauge thin wall needle (although this was quite difficult secondary to body habitus) and cannulated with 0.035 J-tip guidewire. A 6-Macedonian peel- away introducing sheath was placed through which a second 0.035 J-tip guidewire was placed. Sheath was removed and flushed, placed back over the original guidewire, establishing dual guidewire access. Transcutaneous pacing was required for a short period of time. Then, through the sheath, a single coil active fixation (Solia S 53) right ventricular pacing lead was placed. This was positioned in the right ventricular apex and secured in place with the active fixation helix. Pacing and sensing was not adequate, with periods of pacing inhibition. Therefore, over the second guidewire, a 6-Macedonian peel-away introducing sheath was placed through which a second active fixation (Solia S 60 ) right ventricular lead was passed. This was positioned in the right ventricular apex and secured in place with the active fixation helix. This lead required multiple attempts at repositioning, however ultimately there was adequate pacing and sensing, and the lead was sutured in place with a suture sleeve and three separate 0 Ethibond sutures. The Solia S 53 right ventricular lead active fixation helix was withdrawn and the lead was re-directed to the right atrium. Using a J curved stylette, this was placed in the area of the right atrial appendage and secured in place with the active fixation helix. There was adequate pacing and sensing, and the lead was sutured in place with a suture sleeve and two separate 0 Ethibond sutures. Ray-Brittany gauze was moved from the pocket. The pocket was copiously irrigated with antibiotic solution and coated with D-Stat liquid hemostat. Any sites of oozing were cauterized. Pacemaker generator was brought to the field, leads were connected to proper head ports, and all set screws were tightened. Generator was placed in the pocket with the leads posterior, and secured in place with a single 0 Ethibond suture. The pocket was then closed with interrupted layers of 2-0 and 3-0 Vicryl suture and running 4-0 subcuticular Stratafix suture. Benzoin, Steri- Strips, and Opsite were placed. Hardware Implanted: Pacemaker is a Biotronik Eluna 8 DR-T ProMRI, model 528014, serial [id number]. Right atrial lead is a Biotronik Solia S 53, model 288877, serial [id number], threshold 1.0V @ 0.4ms, P wave sensing 5.1mV, impedance 524 Ohms. Right ventricular lead is a Biotronik Solia S 60, model 246641, serial [id number] , threshold 1.0V @ 0.4ms, R wave sensing n/a, impedance 660 Ohms. Portions of this report were documented by a medical editor. I have reviewed this report and agree with the documentation. Report scribed for Dr. Manny Nicole. Report scribed by Rafaela Morris.
--- NOTE | 2016-08-11 16:04 | CPEKG ---
Heart Rate: 93 RR Interval: 645 P-R Interval: 140 QRSD Interval: 130 QT Interval: 400 QTC Interval: 498 P [place]: 33 QRS [place]: -43 T Wave [place]: 89 EKG Severity - ABNORMAL ECG - EKG Impression: VENTRICULAR-PACED COMPLEXES EKG Impression: IN COMPARISON TO PRIOR ECG, VENTRICULAR PACING HAS REPLACED COMPLETE HEART BLOCK Electronically Signed By: Rogerio Frances 12-Aug-2016 16:56:07
[2016-08-11] MEDS ORDERED: OXYCODONE/APAP 5/325 TAB ONE (16:42)
--- NOTE | 2016-08-11 17:45 | GHP ---
DATE OF ADMISSION: 08/11/2016 CHIEF COMPLAINT: Chest pain and shortness of breath. HISTORY OF PRESENT ILLNESS: This is a 80-year-old female with past medical history that includes [place] PD and chronic respiratory failure, as well as multiple recent evaluations for syncope, who presents with a complaint of chest pain and shortness of breath. She did have a home heart rate and pulse m onitor which showed her heart rate to be 35, and for that reason she came to the ER for further eval uation. On her arrival in the ER, it was found that she was in complete heart block, and she was ta alexander urgently for permanent pacemaker placement. I have evaluated this patient in the CBC post pacer placement. At this time, she notes a dull pain near where the pacemaker was inserted but otherwise is feeling well. She notes she always has some shortness of breath related to her COPD but otherwi se feels okay. PAST MEDICAL HISTORY: Includes: 1. Chronic pain, on continuous narcotics. 2. COPD with chronic hypoxic respiratory failure requiring 3 L at baseline. 3. Hypothyroidism. 4. Spinal stenosis. 5. Peptic ulcer disease with perforated ulcer. 6. Compression fracture, status post kyphoplasty. 7. Valvular heart disease with moderate mitral regurgitation. 8. Osteoporosis. PAST SURGICAL HISTORY: Includes: 1. Bilateral hip replacements and revision. 2. Eric patch and exploratory laparotomy for her perforated ulcer. 3. Appendectomy. SOCIAL HISTORY: The patient has remote tobacco use history. She denies significant alcohol use or drug use. She lives independently. FAMILY HISTORY: Reviewed and noncontributory. REVIEW OF SYSTEMS: Ten-point review of systems obtained and negative, except as per HPI. PHYSICAL EXAMINATION: VITAL SIGNS: BP 109/45, heart rate 43, respiratory rate 18, O2 sats 94% on 3 L, temperature 36.6. GENERAL APPEARANCE: This is a chronically ill-appearing elderly female. She is awake and alert. No acute distress. EYES: Anicteric. HENT: Moist mucous membranes, orophary nx clear. CARDIOVASCULAR: Regular rate and rhythm, distant. No murmur, rub, gallop. PULMONARY: Clear to auscultation bilaterally to anterior exam. ABDOMEN: Obese, soft, nontender. EXTREMITIES: No clubbing, cyanosis, or edema. She has tenderness bilaterally. SKIN: Warm, dry, well perfused . NEURO/PSYCH: Oriented and appropriate, pleasant. CLINICAL DATA: Labs reviewed. Significant for white blood cell count of 9.59, hematocrit of 37.3, platelets of 415. Coagulation studies are within normal limits. Chemistry is unremarkable. Tropon in is less than 0.012. ProBNP is 493. EKG: Her pre pacemaker EKG showed complete heart block with an atrial rate in the 100s. Post pacem lawanda EKG shows V-paced complexes with a rate of 93. Chest x-ray shows clear lungs without infiltrate, and her post pacemaker placement x-ray shows excel lent pacer placement without pneumothorax. ASSESSMENT AND PLAN: This is a 80-year-old female, past medical history of chronic obstructive pulm onary disease and chronic pain, who presents with complete heart block. 1. Complete heart block. The patient is now status post permanent pacemaker placement. Cardiology has been consulted. She is being monitored on telemetry overnight. 2. Chest pain in the setting of complete heart block and heart rate in the 30s. She does not have evidence of acute decompensated heart failure. Troponins have been negative x2. Suspect her chest pain is related to her heart block rather than secondary etiology. 3. Recurrent syncope. Again, the patient has had evaluation for syncopal events as recently as 2 w eeks ago. Query if she was having intermittent heart block at that time as well. Again, she is now status post permanent pacemaker. 4. Chronic pain with continuous narcotic use and dependency. We will continue her outpatient pain regimen. 5. Chronic obstructive pulmonary disease with chronic hypoxic respiratory failure. This does seem to be at baseline. We will monitor her carefully. Her postop chest x-ray does not show signs of pn eumothorax or other acute complications. 6. Disposition. Observation status. Suspect the patient will need less than 48-hour stay for eval uation and management of above, though it should be noted that she is being admitted for a high-risk presenting complaint and may indeed require greater than 48 hours. The patient is new to my care. Old records reviewed, summarized as per HPI and past medical history . Care plan reviewed with Dr. Nicole of cardiology, including plans for pacemaker placement. /[id number]/MODL
[2016-08-11] MEDS ORDERED: ALBUTEROL 60 PUFFS/8 GM MDI IH PRN (17:58)
[2016-08-11] MEDS: IPRATROPIUM/ALBUTEROL 3 ML DEYVIAL IH SCH (19:41)
[2016-08-11] MEDS: FLUTICASONE/SALMETER 250/50MCG DISKUS IH SCH (19:41)
[2016-08-11] MEDS: HYDROmorphONE/DILAUDID 1 MG/ML SYR IVP PRN (20:02)
[2016-08-11] MEDS: OXYCODONE/APAP 5/325 TAB PO PRN (20:06)
[2016-08-11] MEDS: GABAPENTIN 300 MG CAP PO SCH ×2 (22:31→22:37)
[2016-08-11] MEDS: diphenhydrAMINE 25 MG CAP PO SCH (22:35)
[2016-08-11] MEDS: ASCORBIC ACID 500 MG TAB PO SCH (22:35)
[2016-08-11] MEDS: SENNOSIDES 1 TAB PO SCH (22:37)
[2016-08-12] MEDS: OXYCODONE/APAP 5/325 TAB PO PRN ×4 (04:43→21:20)
[2016-08-12] MEDS: HYDROmorphONE/DILAUDID 1 MG/ML SYR IVP PRN ×2 (05:10→10:50)
[2016-08-12] MEDS: LEVOTHYROXINE 75 MCG TAB PO SCH (05:12)
[2016-08-12 06:10] LABS: % IMMATURE GRANULYOCYTES 0.4 % (0.0-1.1); ABSOLUTE IMMATURE GRANULOCYTES 0.04 10^3/uL (0.00-0.10); ADD DIFF? NO; ADD MORPH? NO; ADD SCAN? NO; ATYPICAL LYMPHOCYTE FLAG 10 (0-99); FRAGMENT RBC FLAG 0 (0-99); HEMATOCRIT 36.5 % (38.0-47.0); HEMOGLOBIN 10.7 g/dL (12.6-16.3); LEFT SHIFT FLG 0 (0-99); LIPEMIA HEMOLYSIS FLAG 70 (0-99); MEAN CELL HEMOGLOBIN 28.1 pg (27.9-34.1); MEAN CELL HEMOGLOBIN CONCENTR. 29.3 g/dL (32.4-36.7); MEAN CELL VOLUME 95.8 fL (81.5-99.8); MEAN PLATELET VOLUME 9.2 fL (8.7-11.7); PLATELET CLUMPS FLAG 10 (0-99); PLATELET COUNT 366 10^3/uL (150-400); RED BLOOD CELL COUNT 3.81 10^6/uL (4.18-5.33); RED CELL DISTRIBUTION WIDTH 16.3 % (11.5-15.2)
[2016-08-12 06:26] LABS: ANION GAP 9 mEq/L (8-16); CALCIUM 8.8 mg/dL (8.5-10.4); CARBON DIOXIDE 26 mEq/l (22-31); CHLORIDE 105 mEq/L (97-110); CREATININE 0.6 mg/dL (0.6-1.0); GLOMERULAR FILTRATION RATE > 60; GLUCOSE 70 mg/dL (70-100); MAGNESIUM 1.7 mg/dL (1.6-2.3); POTASSIUM 4.2 mEq/L (3.5-5.2); SODIUM 140 mEq/L (134-144)
[2016-08-12] MEDS: GABAPENTIN 300 MG CAP PO SCH ×3 (08:46→21:14)
[2016-08-12] MEDS: buPROPion XL 150 MG TAB PO SCH (08:46)
[2016-08-12] MEDS: CHOLECALCIFEROL VIT D3 1,000 UNITS TAB PO SCH (08:46)
[2016-08-12] MEDS: predniSONE 5 MG TAB PO SCH (08:46)
[2016-08-12] MEDS: PANTOPRAZOLE SODIUM 40 MG TAB PO SCH (08:46)
[2016-08-12] MEDS: ASCORBIC ACID 500 MG TAB PO SCH ×2 (08:47→21:14)
--- NOTE | 2016-08-12 09:04 | CPEKG ---
Heart Rate: 87 RR Interval: 690 P-R Interval: 152 QRSD Interval: 120 QT Interval: 384 QTC Interval: 462 P [place]: 77 QRS [place]: -50 T Wave [place]: 90 EKG Severity - ABNORMAL ECG - EKG Impression: ATRIAL-SENSED VENTRICULAR-PACED RHYTHM Electronically Signed By: Rogerio Frances 14-Aug-2016 08:52:34
[2016-08-12] MEDS: IPRATROPIUM/ALBUTEROL 3 ML DEYVIAL IH SCH ×2 (10:00→20:26)
[2016-08-12] MEDS: FLUTICASONE/SALMETER 250/50MCG DISKUS IH SCH ×2 (10:07→20:27)
--- NOTE | 2016-08-12 10:53 | SOAPPROG ---
SOAP Progress Note Assessment/Plan: Assessment: [place] [facility] [place] 1. Admit with complete heart block and chest discomfort. Troponins were negative x 2. She will need an ischemic workup as an outpatient. 2. S/p dual chamber PPM implantation yesterday. Device interrogation this am shows normal pacer function.Pacer incision looks good but she has severe pain at op site. 3. Known moderate mitral valve regurgitation. 4. Chronic pain related to multiple orthopedic issues. She is opioid dependent. 5. COPD with chronic cough. 6. Osteoporosis. 7. Peptic ulcer disease. Plan: 1. Resume ibuprofen 400 mg q6h. 2. Pain control per hospitalist service. 3. We will continue to follow patient while she remains inpatient. DC looks doubtful today. 4. Follow up with our office next week for routine wound check and device interrogation. 5. Outpatient nuclear stress testing to be arranged through our office. 08/12/16 10:53 Subjective: Patient's chief complaint today is inadequate pain control at left pectoral incision site aggravated by persistent coughing. She is quite distressed. Incision is well-approximated w/o any signs of inflammation or infection. She rates her pain 9/10. Cough is productive with yellow phlegm. The remainder of her ROS is positive for chronic back and hip pain. Objective: Vital Signs Temp Pulse Resp BP Pulse Ox 37.7 C 94 22 H 127/74 H 95 08/12/16 08:00 08/12/16 10:02 08/12/16 10:02 08/12/16 08:00 08/12/16 10:02 Laboratory Results 08/12/16 05:00 08/12/16 05:00 08/11/16 08/12/16 08/13/16 05:59 05:59 05:59 Intake Total 500 Output Total 600 Balance -100 PT 13.9 SEC (12.0-15.0) 08/11/16 11:50 INR 1.08 (0.83-1.16) 08/11/16 11:50 Physical Exam - Physical Exam General Appearance: WD/WN, alert, moderate distress, obese Respiratory: chest non-tender, lungs clear, normal breath sounds Cardiac/Chest: normal peripheral pulses, regular rate, rhythm, other (left pectoral incision well-approximated w/o significant erythema or ecchymosis.), No edema Abdomen: normal bowel sounds, non-tender, soft Neuro/Psych: no motor/sensory deficits, alert, normal mood/affect, oriented x 3 ICD10 Worksheet Patient Problems: Problems Problem Status Onset Complete heart block Acute Back pain Acute Dyspnea Acute Gastric ulcer with perforation Acute Generalized weakness Acute Hip dislocation, left Acute Hypoxemia Acute Osteoporosis Acute S/P hip replacement Acute Syncope Acute
[2016-08-12] MEDS ORDERED: HYDROmorphONE/DILAUDID 1 MG/ML SYR IVP PRN (11:01)
[2016-08-12] MEDS ORDERED: BENZONATATE 100 MG CAP PO PRN (11:04)
[2016-08-12] MEDS ORDERED: guaiFENesin/CODEINE PHOS 10 ML UDCUP PO PRN (11:04)
[2016-08-12] MEDS: IBUPROFEN 200 MG TAB PO PRN ×2 (11:19→19:51)
--- NOTE | 2016-08-12 13:19 | HOSPPROG ---
Hospitalist Progress Note Assessment/Plan: 80 yo F with PMH of chornic pain, copd presenting with complete heart block # complete heart block: now s/p PPM placement with device interrogation today per cardiology showing normal pacer functioning. # acute on chronic pain: patient with chronic pain on continuous narcotics at baseline now having difficulty with pain management post procedure, PPM site appears clean and without any acute issues, pain difficult to manage on opiates likely due to tolerance and narcotic induced hyperesthesia. Added ibuprofen per cardiology and will monitor. Some of the pain driven by cough as next # cough: productive of yellow sputum per her report, last cxr from yesterday without signs of pna but repeat for today pending. Given underlying copd may benefit from azithromycin as next # acute on chronic copd: with e/o slight exacerbation with worsening cough and sputum production, will continue bronchodilators but also add azithromycin # cough: productive of yellow sputum per her report, serial cxr's w/o evidence of PNA by personal review. Seems to be improving, as next. # acute on chronic copd: with e/o slight exacerbation with worsening cough and sputum production, will continue bronchodilators and azithromycin # chronic pain with continuous narcotic use and dependency: as above, making pain control somewhat more challenging # Dispo: IP status, will need > 48 hours stay for eval/mgmt of above Subjective: continues to complain of pain in her chest over the pacer site, generally feels poorly Objective: Vital Signs Temp Pulse Resp BP Pulse Ox 37.2 C 96 17 117/66 93 08/12/16 12:00 08/12/16 12:00 08/12/16 12:00 08/12/16 12:00 08/12/16 12:00 Laboratory Results 08/12/16 05:00 08/12/16 05:00 08/11/16 08/12/16 08/13/16 05:59 05:59 05:59 Intake Total 500 Output Total 600 Balance -100 PT 13.9 SEC (12.0-15.0) 08/11/16 11:50 INR 1.08 (0.83-1.16) 08/11/16 11:50 awake alert mild distress anicteric op clear rrr no mrg cta with dec bs throughout soft nt nd no cce warm dry well perfused oriented appropriate ICD10 Worksheet Patient Problems: Problems Problem Status Onset Complete heart block Acute Back pain Acute Dyspnea Acute Gastric ulcer with perforation Acute Generalized weakness Acute Hip dislocation, left Acute Hypoxemia Acute Osteoporosis Acute S/P hip replacement Acute Syncope Acute
[2016-08-12] MEDS ORDERED: AZITHROMYCIN 250 MG TAB PO ONE ×2 (13:27→18:00)
[2016-08-12] MEDS: diphenhydrAMINE 25 MG CAP PO SCH (21:14)
[2016-08-12] MEDS: SENNOSIDES 1 TAB PO SCH (21:15)
[2016-08-12] MEDS: guaiFENesin 200 MG/10 ML UDCUP PO PRN (21:15)
[2016-08-13] MEDS: guaiFENesin 200 MG/10 ML UDCUP PO PRN ×4 (03:20→23:42)
[2016-08-13] MEDS: LEVOTHYROXINE 75 MCG TAB PO SCH (06:30)
[2016-08-13] MEDS: IBUPROFEN 200 MG TAB PO PRN ×2 (08:14→17:13)
[2016-08-13] MEDS: OXYCODONE/APAP 5/325 TAB PO PRN ×2 (08:14→17:14)
--- NOTE | 2016-08-13 08:50 | SOAPPROG ---
SOAP Progress Note Assessment/Plan: Assessment: Cardiology ([place] [place] 1. Admit with complete heart block and chest discomfort. Troponins were negative x 2. She will need an ischemic workup as an outpatient. 2. S/p dual chamber PPM implantation yesterday. Device interrogation this am shows normal pacer function.Pacer incision looks good but she has severe pain at op site. She did receive vancomycin ivp prior to device implantation. Post- pacer CXRs negative for PTX. 3. Known moderate mitral valve regurgitation. 4. Chronic pain related to multiple orthopedic issues. She is opioid dependent. 5. COPD with acutely worsened chronic cough. 6. Severe nocturnal hypoxia. 7. Osteoporosis. 8. Peptic ulcer disease. Plan: 1. Resume ibuprofen 400 mg q6h. 2. Pain control per hospitalist service. 3. Office follow up for pacer check to be arranged. 4. Outpatient nuclear stress testing to be arranged through our office. Objective: Vital Signs Temp Pulse Resp BP Pulse Ox 36.6 C 83 18 118/74 99 08/13/16 07:35 08/13/16 07:35 08/13/16 07:35 08/13/16 07:35 08/13/16 07:35 08/12/16 08/13/16 08/14/16 05:59 05:59 05:59 Intake Total 1470 Output Total 525 Balance 945 PT 13.9 SEC (12.0-15.0) 08/11/16 11:50 INR 1.08 (0.83-1.16) 08/11/16 11:50 ICD10 Worksheet Patient Problems: Problems Problem Status Onset Complete heart block Acute Back pain Acute Dyspnea Acute Gastric ulcer with perforation Acute Generalized weakness Acute Hip dislocation, left Acute Hypoxemia Acute Osteoporosis Acute S/P hip replacement Acute Syncope Acute
[2016-08-13] MEDS: IPRATROPIUM/ALBUTEROL 3 ML DEYVIAL IH SCH ×2 (09:48→20:56)
[2016-08-13] MEDS: FLUTICASONE/SALMETER 250/50MCG DISKUS IH SCH ×2 (09:49→20:56)
[2016-08-13] MEDS: predniSONE 5 MG TAB PO SCH (10:07)
[2016-08-13] MEDS: GABAPENTIN 300 MG CAP PO SCH ×4 (10:07→21:25)
[2016-08-13] MEDS: CHOLECALCIFEROL VIT D3 1,000 UNITS TAB PO SCH (10:08)
[2016-08-13] MEDS: AZITHROMYCIN 250 MG TAB PO SCH (10:08)
[2016-08-13] MEDS: ASCORBIC ACID 500 MG TAB PO SCH ×2 (10:08→21:24)
[2016-08-13] MEDS: PANTOPRAZOLE SODIUM 40 MG TAB PO SCH (10:08)
[2016-08-13] MEDS: buPROPion XL 150 MG TAB PO SCH (10:08)
--- NOTE | 2016-08-13 11:00 | CPEKG ---
Heart Rate: 82 RR Interval: 732 P-R Interval: 156 QRSD Interval: 98 QT Interval: 380 QTC Interval: 444 P Spring: 110 QRS Spring: 10 T Wave Spring: 47 EKG Severity - ABNORMAL ECG - EKG Impression: ATRIAL-SENSED VENTRICULAR-PACED RHYTHM Electronically Signed By: Rogerio Frances 14-Aug-2016 08:52:39
[2016-08-13 12:16] LABS: TROPONIN I 0.053 ng/mL (0-0.034)
[2016-08-13] MEDS: oxyCODONE IR 15 MG TAB PO PRN ×2 (13:00→23:42)
--- NOTE | 2016-08-13 14:04 | HOSPPROG ---
Hospitalist Progress Note Assessment/Plan: 80 yo F with PMH of chornic pain, copd presenting with complete heart block # complete heart block: now s/p PPM placement with device interrogation today per cardiology showing normal pacer functioning. # acute on chronic pain: patient with chronic pain on continuous narcotics at baseline now having difficulty with pain management post procedure, PPM site appears clean and without any acute issues, pain difficult to manage on opiates likely due to tolerance and narcotic induced hyperesthesia. # chest pain: in setting of above, of note, patient has severe pain with even light touch of one finger on her chest, but is fine with firm pressure from the stethoscope. Suspect a large part of this is somatization. Repeat ecg personally reviewed showing a paced v sensed rhythm without clear ischemic changes. Trop post PM placement is 0.05 likely related to PPM placement # cough: productive of yellow sputum per her report, serial cxr's w/o evidence of PNA by personal review. Seems to be improving, as next. # acute on chronic copd: with e/o slight exacerbation with worsening cough and sputum production, will continue bronchodilators and azithromycin # chronic pain with continuous narcotic use and dependency: as above, making pain control somewhat more challenging # Dispo: IP status, will need > 48 hours stay for eval/mgmt of above Reviewed cardiology records. Subjective: no significant overnight events, patient notes that she continues to have chest pain over the incision site, also has somewhat generalized pain Objective: Vital Signs Temp Pulse Resp BP Pulse Ox 36.7 C 76 18 113/46 L 93 08/13/16 11:24 08/13/16 11:24 08/13/16 11:24 08/13/16 11:24 08/13/16 11:24 08/12/16 08/13/16 08/14/16 05:59 05:59 05:59 Intake Total 1470 Output Total 525 Balance 945 PT 13.9 SEC (12.0-15.0) 08/11/16 11:50 INR 1.08 (0.83-1.16) 08/11/16 11:50 ICD10 Worksheet Patient Problems: Problems Problem Status Onset Complete heart block Acute Back pain Acute Dyspnea Acute Gastric ulcer with perforation Acute Generalized weakness Acute Hip dislocation, left Acute Hypoxemia Acute Osteoporosis Acute S/P hip replacement Acute Syncope Acute
[2016-08-13] MEDS: diphenhydrAMINE 25 MG CAP PO SCH (21:24)
[2016-08-13] MEDS: SENNOSIDES 1 TAB PO SCH (21:24)
[2016-08-14] MEDS: LEVOTHYROXINE 75 MCG TAB PO SCH (04:16)
[2016-08-14] MEDS: IBUPROFEN 200 MG TAB PO PRN ×2 (04:16→12:52)
[2016-08-14] MEDS: OXYCODONE/APAP 5/325 TAB PO PRN ×2 (04:16→12:53)
[2016-08-14] MEDS: oxyCODONE IR 15 MG TAB PO PRN (09:25)
[2016-08-14] MEDS: AZITHROMYCIN 250 MG TAB PO SCH (09:27)
[2016-08-14] MEDS: predniSONE 5 MG TAB PO SCH (09:27)
[2016-08-14] MEDS: buPROPion XL 150 MG TAB PO SCH (09:29)
[2016-08-14] MEDS: GABAPENTIN 300 MG CAP PO SCH (09:29)
[2016-08-14] MEDS: ASCORBIC ACID 500 MG TAB PO SCH (09:29)
[2016-08-14] MEDS: PANTOPRAZOLE SODIUM 40 MG TAB PO SCH (09:29)
[2016-08-14] MEDS: CHOLECALCIFEROL VIT D3 1,000 UNITS TAB PO SCH (09:29)
[2016-08-14] MEDS: guaiFENesin 200 MG/10 ML UDCUP PO PRN (09:44)
[2016-08-14] MEDS: IPRATROPIUM/ALBUTEROL 3 ML DEYVIAL IH SCH (10:42)
[2016-08-14 10:49] VITALS: O2SAT 96
[2016-08-14] MEDS: FLUTICASONE/SALMETER 250/50MCG DISKUS IH SCH (10:49)
--- NOTE | 2016-08-14 11:20 | PDIAF ---
- Diagnosis Code Status: Full Code - Medication Management Discharge Medications: Medications to Continue on Transfer Ascorbic Acid [Vitamin C 500 mg (*)] 1,000 mg PO BID 08/26/13 [Last Taken ] Calcium Carbonate [Tums 500MG (*)] 1,000 - 1,500 mg PO DAILY PRN 08/26/13 [Last Taken 08/10/16] Fluticasone/Salmeter 250/50Mcg [Advair 250/50 (*)] 1 puffs IH BID 08/26/13 [ Last Taken 08/10/16] Herbals/Supplements -Info Only 1 each PO AD 08/26/13 [Last Taken 08/10/16] Sennosides [Senokot] 3 each PO HS 08/26/13 [Last Taken 08/10/16] Pantoprazole Sodium [Protonix 40mg (*)] 40 mg PO DAILY 09/15/13 [Last Taken ] Alendronate Sodium [Fosamax 70 MG (*)] 70 mg PO BERNAL@07 03/29/16 [Last Taken 08/10] Gabapentin [Neurontin 300 MG (*)] 300 mg PO BIDMEAL 03/29/16 [Last Taken ] Levothyroxine [Synthroid 75 mcg (*)] 75 mcg PO DAILY06 03/29/16 [Last Taken ] buPROPion XL [Wellbutrin 150mg XL] 150 mg PO DAILY 03/29/16 [Last Taken 08/10/16 ] diphenhydrAMINE [Benadryl 25 MG (*)] 25 mg PO HS 05/17/16 [Last Taken 08/10/16] Albuterol [Ventolin Hfa Inhaler] 2 puffs IH QID PRN 05/26/16 [Last Taken ] Fluticasone Nasal [Flonase Nasal Jean] 1 sprays EACHNARE DAILY PRN 07/20/16 [ Last Taken 08/10/16] Gabapentin [Neurontin 300 MG (*)] 600 mg PO HS 07/20/16 [Last Taken 08/10/16] Dicyclomine HCl 20 mg PO QID PRN 07/25/16 [Last Taken 08/10/16] Acetaminophen [Tylenol 325mg (*)] 650 mg PO Q4HRS PRN #0 tab 07/26/16 [Last Taken Unknown] predniSONE 7.5 mg PO DAILY tab 07/26/16 [Last Taken 08/10/16] Cholecalciferol Vit D3 [Vitamin D3 (*)] 2,000 units PO DAILY 08/11/16 [Last Taken 08/10/16] Diazepam [Valium 5 MG (*)] 5 mg PO Q6H PRN 08/11/16 [Last Taken Unknown] HYDROmorphone HCL [Dilaudid 2 mg (*)] 2 - 4 mg PO Q4H PRN 08/11/16 [Last Taken 08/11/16 03:00] Ipratropium/Albuterol [Duoneb (*)] 3 ml IH BID 08/11/16 [Last Taken 08/10/16] Promethazine HCl [Phenergan 25mg (*)] 25 mg PO Q8H PRN 08/11/16 [Last Taken ] oxyCODONE HCL [Oxycontin] 10 mg PO Q12H PRN 08/11/16 [Last Taken Unknown] oxyCODONE IR [Oxycodone Ir (*)] 15 mg PO Q4H PRN 08/11/16 [Last Taken 08/10/16] oxyCODONE/APAP 5/325 [Percocet 5/325 (*)] 1 tab PO Q4H PRN 08/11/16 [Last Taken 08/11/16 03:00] Azithromycin [Zithromax] 250 mg PO DAILY #3 tab 08/14/16 [Last Taken Unknown] Benzonatate [Tessalon Pearles] 200 mg PO TID PRN #30 cap 08/14/16 [Last Taken Unknown] Guaifenesin/Codeine Phosphate [Guaifenesin-Codeine Liquid] 5 ml PO Q6H #118 ml 08/14/16 [Last Taken Unknown] Ibuprofen [Motrin (*)] 400 mg PO Q6HRS PRN #0 tab 08/14/16 [Last Taken Unknown] Discharge Medications: Refer to the Discharge Home Medication list for PRN reason. - Orders Services needed: Home Care, Registered Nurse, [employer], Physical Therapy, Occupational Therapy Home Care Face to Face: I certify that this patient was under my care and that I had the required [id number] encounter meeting the encounter requirements on the discharge day. My findings support the fact that the patient is homebound as defined in CMS Chapter 7 Medicare Benefits Manual 30.1.1, The condition of the patient is such that there exists a normal inability to leave home and consequently, leaving home would require a considerable and taxing effort. Diet Recommendation: cardiac -low fat low salt - Follow Up Care Current Providers and Referrals: Patient,NotPresent [Unknown] - As per Instructions
--- NOTE | 2016-08-14 11:20 | PDDCSUM ---
Discharge Summary Discharge Summary: Dates of service 08/11-08/14/16 Discharge dx: # comlplete heart block # acute on chronic pain # chest pain # copd with acute exacerbation # continuous narcotic dependency Consultations: cardiology Procedures performed: PPM placement Hospital course by problem: # complete heart block: now s/p PPM placement with device interrogation today per cardiology showing normal pacer functioning. # acute on chronic pain: patient with chronic pain on continuous narcotics at baseline, suspect lower pain tolerance due to chronic opioud use leading to her significant post procedural pain # chest pain: in setting of above and likely of same etiology, cardiac w/ post procedure negative # cough: productive of yellow sputum per her report, serial cxr's w/o evidence of PNA by personal review. Seems to be improving, as next. # acute on chronic copd: with e/o slight exacerbation with worsening cough and sputum production, will continue bronchodilators and started on course of azithromycin # ontinuous narcotic use and dependency: as above, making pain control somewhat more challenging, dc home on usual regimen DC home f/u with pcp and cardiology >35 min spent in dc, more than half in face to face counseling and coordination of care
[2016-08-14 13:20] VITALS: BP 103/69; PULSE 93; RESP 20; TEMP 98.3
[2016-08-17] MEDS ORDERED: ALENDRONATE SODIUM 70 MG TAB PO SCH (07:00)
== END 2016-08-14 14:30 | disposition home health service (06) | DRG 243 ==
LOC: EDUNIT# → INTOOBSV 12:07 → F2W 17:40 → OBSVTOIN 08-12 13:19
PROVIDERS: ADMIT Internal Medicine; ATTEND Internal Medicine
DX: I44.2 Atrioventricular block, complete (principal); J44.1 Chronic obstructive pulmonary disease with (acute) exacerbation; G89.29 Other chronic pain; F11.20 Opioid dependence, uncomplicated; E03.9 Hypothyroidism, unspecified
CPT/HCPCS: 96372-PO; 96374; 97116-GP; 97162-GP; A4649; C1785; C1898; G0378; G8978-GP-CJ; G8979-GP-CI; J1170; J2250; J3010; J3370; Q9967

== ENCOUNTER 2016-08-19 05:38 | Observation (INO) | payer OTHER, MEDICAID ==
[2016-08-19] MEDS ORDERED: ASPIRIN 81 MG CHEWABLE TAB PO ONE (05:41)
[2016-08-19] MEDS ORDERED: methylPREDNISolone SOD SUCC 125 MG/2 ML VIAL IVP ONE (05:47)
--- NOTE | 2016-08-19 05:47 | EDPHY ---
H & P Smoking Status: Former smoker HPI/ROS: HPI Chest discomfort, chest pressure, shortness of breath. 72-year-old female by ambulance from home where she lives alone. Patient woke about a 0.5 hour ago with which she describes as mid substernal chest pressure and squeezing with shortness of breath. She has a history of coronary artery disease. She had a pacemaker implanted 1 week ago by her vegetable sorter Dr. Manny Nicole. She is to have a postop follow-up appointment with Dr. Nicole tomorrow. She is on oxygen at home at 3 L 24-7. ROS: Constitutional: No fever, no chills. No weakness. Eyes: No discharge. No changes in vision. ENT: No sore throat. No nasal congestion or rhinorrhea. Respiratory: No cough. No shortness of breath. Cardiac: No chest pain, no palpitations. Gastrointestinal: No abdominal pain, no vomiting, no diarrhea. Genitourinary: No hematuria. No dysuria or increased frequency with urination. Musculoskeletal: No back pain. No neck pain. No myalgias or arthralgias. Skin: No rashes. Neurological: No headache. No focal weakness or altered sensation. Past medical history: Coronary artery disease, arrhythmia, COPD-asthma. Social history: Former smoker. Lives alone. Physical Exam: General Appearance: Alert, on a nebulizer. This patient is responding to questions appropriately and in full sentences. This patient appears well- hydrated and well-nourished. Eyes: Pupils equal and round no pallor or injection. No lid edema, erythema or injection. Respiratory: There are no retractions, diminished shallow air movement bilaterally. No wheezing. No rhonchi. Cardiovascular: Regular rate and rhythm. No murmur. Left upper chest wall pacemaker insertion incision, sutured, clean dry and intact. No erythema or or surrounding warmth. No evidence of infection. Gastrointestinal: Abdomen is soft and nontender, no masses, bowel sounds normal. No focal tenderness at McBurney's point. No Martinez sign. Neurological: Motor sensory function is grossly intact. Cranial nerves are normal. Gait is normal. Skin: Warm and dry, no rashes. Musculoskeletal: Neck is supple and nontender. Extremities are symmetrical. All joints range without pain or impingement. Psychiatric: No agitation. No depression. Database: EKG: EKG time is 5:51 a.m., EKG shows a atrial ventricular dual paced rhythm with ventricular rate of 74. Appropriate discordance. Interpreted by me. Imaging: Chest x-ray AP portable; the cardiac mediastinal silhouette is unremarkable. Pacemaker left upper chest, leads appear intact. No evidence of infiltrate or pneumothorax. No acute cardiopulmonary disease process noted. Interpreted by me. Procedures: Emergency department course: IV placed. She was placed on a monitor. EKG and chest x-ray performed. 125 mg of IV Solu-Medrol given. 324 mg of chewed aspirin given. 6:25 a.m., patient re-evaluated. She is complaining of her chronic back pain. No change from her previous pain. She is asking for some narcotic pain medication. She was given 25 mcg of IV fentanyl. 7:00 a.m., awaiting call back from Dr. Manny Nicole. Have discussed with hospitalist Dr. Esparza. Care turned over to Dr. Manuel Montalvo at this time. He will discuss with Dr. Nicole disposition of the patient. Differential Diagnosis: The differential diagnosis on this patient includes but is not limited to acute coronary syndrome, pulmonary embolism, reactive airway disease, asthma exacerbation, COPD exacerbation. This represents a partial list of diagnoses considered. These considerations are based on history, physical exam, past history, reassessment and diagnostic testing. (Richar Sultana) Constitutional: Initial Vital Signs Temperature (C) 36.6 C 08/19/16 05:52 Heart Rate 75 08/19/16 05:52 Respiratory Rate 20 08/19/16 05:52 Blood Pressure 169/81 H 08/19/16 05:52 O2 Sat (%) 94 08/19/16 05:52 O2 Delivery Mode Nasal Cannula O2 (L/minute) 3 Allergies/Adverse Reactions: celecoxib [From Celebrex] Allergy (Severe, Verified 08/19/16 05:51) Weight gain, Fatigue, Increased Pain codeine [Codeine] Allergy (Severe, Verified 08/19/16 05:51) Nausea Vomiting duloxetine HCl [From Cymbalta] Allergy (Severe, Verified 08/19/16 05:51) Vomiting hydrocodone bitartrate [From Vicodin] Allergy (Severe, Verified 08/19/16 05:51) Nausea Vomiting levofloxacin [From Levaquin] Allergy (Severe, Verified 08/19/16 05:51) Swelling/neck,face,throat sulfamethoxazole [From Septra] Allergy (Severe, Verified 08/19/16 05:51) Nausea Vomiting trimethoprim [From Septra] Allergy (Severe, Verified 08/19/16 05:51) Nausea Vomiting aspirin Allergy (Intermediate, Verified 08/19/16 05:51) stomach pain cephalexin monohydrate [From Keflex] Allergy (Intermediate, Verified 08/19/16 05 :51) Stomach Pain clarithromycin [From Biaxin] Allergy (Intermediate, Verified 08/19/16 05:51) Stomach Pain orphenadrine Allergy (Intermediate, Verified 08/19/16 05:51) Stomach pain potassium clavula *RETIRED-02/23/12 [From Augmentin] Allergy (Intermediate, Verified 08/19/16 05:51) Itching tetracycline [Tetracycline] Allergy (Intermediate, Verified 08/19/16 05:51) Stomach Pain amoxicillin trihydrate [From Augmentin] Allergy (Verified 08/19/16 05:51) ciprofloxacin [From Cipro] Allergy (Verified 08/19/16 05:51) ciprofloxacin HCl [From Cipro] Allergy (Verified 08/19/16 05:51) potassium clavulanate [From Augmentin] Allergy (Verified 08/19/16 05:51) shrimp Allergy (Verified 08/19/16 05:51) ORPHENGESIC Allergy (Intermediate, Uncoded 08/19/16 05:51) Stomach Pain Terpin hydrate Allergy (Intermediate, Uncoded 08/19/16 05:51) Stomach pain Home Medications: Medication Instructions Recorded Ascorbic Acid [Vitamin C 500 mg 1,000 mg PO BID 08/26/13 (*)] Calcium Carbonate [Tums 500MG (*)] 1,000 - 1,500 mg PO DAILY PRN 08/26/13 Fluticasone/Salmeter 250/50Mcg 1 puffs IH BID 08/26/13 [Advair 250/50 (*)] Herbals/Supplements -Info Only 1 each PO AD 08/26/13 Sennosides [Senokot] 3 each PO HS 08/26/13 Pantoprazole Sodium [Protonix 40mg 40 mg PO DAILY 09/15/13 (*)] Alendronate Sodium [Fosamax 70 MG 70 mg PO BERNAL@07 03/29/16 (*)] Gabapentin [Neurontin 300 MG (*)] 300 mg PO BIDMEAL 03/29/16 Levothyroxine [Synthroid 75 mcg 75 mcg PO DAILY06 03/29/16 (*)] buPROPion XL [Wellbutrin 150mg XL] 150 mg PO DAILY 03/29/16 diphenhydrAMINE [Benadryl 25 MG 25 mg PO HS 05/17/16 (*)] Albuterol [Ventolin Hfa Inhaler] 2 puffs IH QID PRN 05/26/16 Fluticasone Nasal [Flonase Nasal 1 sprays EACHNARE DAILY PRN 07/20/16 [place]] Gabapentin [Neurontin 300 MG (*)] 600 mg PO HS 07/20/16 Dicyclomine HCl 20 mg PO QID PRN 07/25/16 Acetaminophen [Tylenol 325mg (*)] 650 mg PO Q4HRS PRN #0 tab 07/26/16 predniSONE 7.5 mg PO DAILY tab 07/26/16 Cholecalciferol Vit D3 [Vitamin D3 2,000 units PO DAILY 08/11/16 (*)] Diazepam [Valium 5 MG (*)] 5 mg PO Q6H PRN 08/11/16 HYDROmorphone HCL [Dilaudid 2 mg 2 - 4 mg PO Q4H PRN 08/11/16 (*)] Ipratropium/Albuterol [Duoneb (*)] 3 ml IH BID 08/11/16 Promethazine HCl [Phenergan 25mg 25 mg PO Q8H PRN 08/11/16 (*)] oxyCODONE HCL [Oxycontin] 10 mg PO Q12H PRN 08/11/16 oxyCODONE IR [Oxycodone Ir (*)] 15 mg PO Q4H PRN 08/11/16 oxyCODONE/APAP 5/325 [Percocet 1 tab PO Q4H PRN 08/11/16 5/325 (*)] Azithromycin [Zithromax] 250 mg PO DAILY #3 tab 08/14/16 Benzonatate [Tessalon Pearles] 200 mg PO TID PRN #30 cap 08/14/16 Guaifenesin/Codeine Phosphate 5 ml PO Q6H #118 ml 08/14/16 [Guaifenesin-Codeine Liquid] Ibuprofen [Motrin (*)] 400 mg PO Q6HRS PRN #0 tab 08/14/16 Medical Decision Making ED Course/Re-evaluation: 0700: I assumed care of this patient from Dr. Sultana at shift change. We are awaiting a call from Dr. Nicole, cardiology. 721: Consulted with Dr. Nicole, cardiology. (Manuel Montalvo) Other Provider: The patient was signed out to me at 0700. At [address] Nicole who is comfortable with the patient being admitted as an observation patient to the hospital. Dr. Esparza has evaluated and will admit the patient. (Manuel Montalvo) - Data Points Laboratory Results: Laboratory Results 08/19/16 06:05 08/19/16 06:05 08/19/16 08/19/16 08/19/16 06:05 06:05 06:05 WBC 9.74 10^3/uL H 10^3/uL (3.80-9.50) RBC 3.62 10^6/uL L 10^6/uL (4.18-5.33) Hgb 10.5 g/dL L g/dL (12.6-16.3) Hct 34.4 % L % (38.0-47.0) MCV 95.0 fL fL (81.5-99.8) MCH 29.0 pg pg (27.9-34.1) MCHC 30.5 g/dL L g/dL (32.4-36.7) RDW 16.2 % H % (11.5-15.2) Plt Count 360 10^3/uL 10^3/uL (150-400) MPV 9.1 fL fL (8.7-11.7) Neut % (Auto) 61.2 % % (39.3-74.2) Lymph % (Auto) 24.4 % % (15.0-45.0) [place] % (Auto) 8.9 % % (4.5-13.0) Eos % (Auto) 4.8 % % (0.6-7.6) Baso % (Auto) 0.3 % % (0.3-1.7) Nucleat RBC Rel Count 0.0 % % (0.0-0.2) Absolute Neuts (auto) 5.95 10^3/uL 10^3/uL (1.70-6.50) Absolute Lymphs (auto) 2.38 10^3/uL 10^3/uL (1.00-3.00) Absolute Monos (auto) 0.87 10^3/uL H 10^3/uL (0.30-0.80) Absolute Eos (auto) 0.47 10^3/uL H 10^3/uL (0.03-0.40) Absolute Basos (auto) 0.03 10^3/uL 10^3/uL (0.02-0.10) Absolute Nucleated RBC 0.00 10^3/uL 10^3/uL (0-0.01) Immature Gran % 0.4 % % (0.0-1.1) Immature Gran # 0.04 10^3/uL 10^3/uL (0.00-0.10) PT 13.5 SEC SEC (12.0-15.0) INR 1.04 (0.83-1.16) APTT 25.9 SEC SEC (23.0-38.0) Sodium 140 mEq/L mEq/L (134-144) Potassium 5.1 mEq/L mEq/L (3.5-5.2) Chloride 100 mEq/L mEq/L (97-110) Carbon Dioxide 35 mEq/l H mEq/l (22-31) Anion Gap 5 mEq/L L mEq/L (8-16) BUN 10 mg/dL mg/dL (7-23) Creatinine 0.6 mg/dL mg/dL (0.6-1.0) Estimated GFR > 60 Glucose 68 mg/dL L mg/dL (70-100) Calcium 9.3 mg/dL mg/dL (8.5-10.4) Creatine Kinase 47 IU/L IU/L (0-156) CK-MB (CK-2) Fraction 1.15 ng/mL ng/mL (0-3.19) Troponin I < 0.012 ng/mL ng/mL (0-0.034) NT-Pro-B Natriuret Pep 783 pg/mL H pg/mL (0-450) Medications Given: Discontinued Medications Aspirin (Aspirin) 324 mg PO EDNOW ONE Stop: 08/19/16 05:42 Last Admin: 08/19/16 05:56 Dose: 324 mg Fentanyl (Sublimaze) 25 mcg IVP EDNOW ONE Stop: 08/19/16 06:21 Last Admin: 08/19/16 06:28 Dose: 25 mcg Methylprednisolone Sodium Succinate (Solu-Medrol) 125 mg IVP EDNOW ONE Stop: 08/19/16 05:48 Last Admin: 08/19/16 06:07 Dose: 125 mg Departure - Departure Clinical Impression: Chest discomfort, Dyspnea Referrals: Patient,NotPresent [Unknown] - As per Instructions
--- NOTE | 2016-08-19 05:53 | CPEKG ---
Heart Rate: 74 RR Interval: 811 P-R Interval: 144 QRSD Interval: 134 QT Interval: 420 QTC Interval: 466 P Parish: -31 QRS Parish: -50 T Wave [place]: 32 EKG Severity - ABNORMAL ECG - EKG Impression: ATRIAL-VENTRICULAR DUAL-PACED RHYTHM Electronically Signed By: Richar Sultana 19-Aug-2016 05:56:29
[2016-08-19 06:16] LABS: % IMMATURE GRANULYOCYTES 0.4 % (0.0-1.1); ABSOLUTE IMMATURE GRANULOCYTES 0.04 10^3/uL (0.00-0.10); ADD DIFF? NO; ADD MORPH? NO; ADD SCAN? NO; ATYPICAL LYMPHOCYTE FLAG 0 (0-99); FRAGMENT RBC FLAG 0 (0-99); HEMATOCRIT 34.4 % (38.0-47.0); HEMOGLOBIN 10.5 g/dL (12.6-16.3); LEFT SHIFT FLG 0 (0-99); LIPEMIA HEMOLYSIS FLAG 80 (0-99); MEAN CELL HEMOGLOBIN CONCENTR. 30.5 g/dL (32.4-36.7); MEAN PLATELET VOLUME 9.1 fL (8.7-11.7); PLATELET CLUMPS FLAG 10 (0-99); PLATELET COUNT 360 10^3/uL (150-400); RED BLOOD CELL COUNT 3.62 10^6/uL (4.18-5.33); RED CELL DISTRIBUTION WIDTH 16.2 % (11.5-15.2)
[2016-08-19] MEDS ORDERED: fentaNYL 100 MCG/2 ML INJ IVP ONE (06:20)
[2016-08-19] MEDS ORDERED: fentaNYL 100 MCG/2 ML INJ ONE (06:22)
[2016-08-19 06:25] LABS: APTT 25.9 SEC (23.0-38.0); INR 1.04 (0.83-1.16); PROTIME(PATIENT) 13.5 SEC (12.0-15.0)
[2016-08-19 06:33] LABS: ANION GAP 5 mEq/L (8-16); CALCIUM 9.3 mg/dL (8.5-10.4); CARBON DIOXIDE 35 mEq/l (22-31); CHLORIDE 100 mEq/L (97-110); CREATININE 0.6 mg/dL (0.6-1.0); GLOMERULAR FILTRATION RATE > 60; GLUCOSE 68 mg/dL (70-100); POTASSIUM 5.1 mEq/L (3.5-5.2); SODIUM 140 mEq/L (134-144)
[2016-08-19 06:45] LABS: CREATINE KINASE-MB FRACTION 1.15 ng/mL (0-3.19); TROPONIN I < 0.012 ng/mL (0-0.034)
[2016-08-19] MEDS ORDERED: ONDANSETRON DISINTEGRATING 4 MG TAB PO PRN (07:43)
[2016-08-19] MEDS ORDERED: ACETAMINOPHEN 325 MG TAB PO PRN (07:43)
[2016-08-19] MEDS ORDERED: ONDANSETRON 4 MG/2 ML VIAL IVP PRN (07:43)
--- NOTE | 2016-08-19 08:20 | GHP ---
DATE OF ADMISSION: 08/19/2016 CHIEF COMPLAINT: Chest pain. HISTORY OF PRESENT ILLNESS: This is a 80-year-old female with a history of recent diagnosis of comp lete heart block status post implantable permanent pacemaker on 08/11/[address] Nicole who presen ts with sudden onset of crushing substernal chest pain the morning of presentation. Patient reports that she woke at approximately 4 in the morning, got up and walked to the bathroom. When she retur luis to bed from using the restroom developed, per her words crushing substernal chest pain associate d with severe shortness of breath, mild nausea. No vomiting. The patient said the pain did not sub side and therefore she called EMS for evaluation. In the emergency department the pain has abated a fter administration of medications. The patient's breathing is back to her reported baseline shortn ess of breath and the nausea has resolved. The patient reports returning home after her recent disc harge and with the assistance of home health has been doing well. She does admit that she has done very little besides lie in bed and watch television since her disposition but the minimal amount of ambulation she has done to either use the restroom or obtain food has been done without the developm ent of chest symptoms. The patient reports baseline shortness of breath that is not change. She de nies any new cough, any new vision changes, lightheadedness. Denies any vomiting, any diarrhea, dys uria or hematuria. She does report mild ankle edema since her disposition; otherwise negative for r ashes, numbness, tingling. PAST MEDICAL HISTORY: 1. Complete heart block status post permanent pacemaker. 2. COPD, oxygen dependent at 3 L. 3. Hypothyroidism. 4. Chronic pain on continuous narcotics. 5. Spinal stenosis. 6. History of peptic ulcer disease status post a perforated ulcer. 7. Compression fracture status post kyphoplasty. 8. Valvular heart disease with moderate mitral regurgitation. 9. Osteoporosis. SOCIAL HISTORY: Patient lives independently. Denies tobacco, alcohol or illicit drugs. FAMILY HISTORY: Positive for heart disease. REVIEW OF SYSTEMS: A 10-point review of systems is negative with the exception of that reported in the HPI. ADVANCED DIRECTIVES: The patient is full cor, full tube. She would want her ex- to be her m edical decision maker. PHYSICAL EXAMINATION: VITAL SIGNS: Blood pressure 169/81, heart rate 75, respiratory rate 20, satu rating 94% on 3 L, 36.6. GENERAL: This is an obese appearing elderly female, lying flat in bed. H EENT: Notable for moist mucous membranes. EYES: Negative for any icterus. CARDIAC: Patient is r egular rate and rhythm. A systolic murmur is appreciated. PULMONARY: Patient has poor respiratory effort and diminished breath sounds at bilateral bases. No rales or rhonchi are appreciated. VENKATA ROINTESTINAL: Positive bowel sounds. Abdomen is soft and nontender to palpation in all 4 quadrants . MUSCULOSKELETAL: Shows only trace lower extremity edema. NEUROLOGIC: The patient is alert and oriented x3. PSYCHIATRIC: She is depressed by my examination. DATA: White count 9.7 which is baseline, hematocrit 34.4, which is baseline, platelets of 360. Tro ponin is less than 0.012, down from 0.05 last checked. Creatinine 0.6. BNP is 783. Chest x-ray, w hich I personally reviewed and interpreted, shows an obese female, with no acute infiltrates or eden a. EKG which I personally reviewed and interpreted, shows a sense V-paced rhythm consistent with he r discharge EKG from her last hospitalization. ASSESSMENT AND PLAN: This is a 80-year-old female presenting with acute chest pain. 1. Acute chest pain. The patient did have chest pain on her previous hospitalization with indeterm inate troponins at that time. My suspicion for acute cardiac ischemia with her EKG and labs is low at this time. We will admit for serial troponins, EKG and telemetry monitoring. Cardiology has bee n consulted from the emergency department and will consult and make recommendations on the necessity for further workup and/or risk stratification. 2. Complete heart block. Patient did have her pacemaker interrogated during her last hospital stay . It was functioning normally. Her EKG tracings were the same. Low suspicion for malfunction of t he device this early after implantation. 3. Chronic obstructive pulmonary disease. Patient's lung sounds are not concerning for an acute ex acerbation. We will continue her home medications when reconciled. 4. Chronic pain with continuous narcotic dependency. We will continue her home meds after reconcil ed. 5. Prophylaxis with Lovenox. Although the patient is observation she does not seem to move much, a lthough is able to ambulate, seems motivational more than strength related. DIET: Cardiac. DISPOSITION: I expect in less than 2 midnights that the patient rules out, and effective outpatient cardiology management is arranged. I have discussed the case with the emergency room physician. Crystal franco will admit the patient under observation status for cardiac monitoring. /[id number]/MODL
[2016-08-19] MEDS ORDERED: DICYCLOMINE 20 MG TAB PO PRN (11:36)
[2016-08-19] MEDS ORDERED: FLUTICASONE NASAL 120 SPRAYS/16 GM MDI EACHNARE PRN (11:36)
[2016-08-19] MEDS ORDERED: PROMETHAZINE HCL 25 MG TAB PO PRN (11:36)
[2016-08-19] MEDS ORDERED: NON-FORMULARY NEW DRUG (Albuterol 2 PUFFS) IH PRN (11:36)
[2016-08-19] MEDS ORDERED: ALBUTEROL 60 PUFFS/8 GM MDI IH PRN (11:45)
--- NOTE | 2016-08-19 11:50 | HOSPPROG ---
Hospitalist Progress Note Assessment/Plan: Pt admitted this am, chart reviewed, pt seen and examined. Chest pain in 80 yo female with recent pacemaker placement - sub-sternal chest pressure with pleuritic symptoms radiating to her back with ongoing nausea. CTA neg for PE and dissection. Small pericardial effusion noted. This is new since echo in 07/2016. Will rpt echo. She may have a pericarditis. Trop neg x2. Discussed case with Dr. Nicole who will see pt today to determine further risk stratification approach. Chronic hypoxemic respiratory failure secondary to O2 dependent COPD - 3 LPM at baseline. No e/o acute flare, cont outpt meds, on chronic prednisone. Chronic pain / compression fracture - resume outpt Percocet. Prefer to hold Advil, but pt adamant she continue to receive this. Nausea - ?gastritis with prednisone and advil use. Check H pylori Ag, cont PPI. Full code Dispo - change to inpt, needs ongoing cardiac workup Subjective: Pt complains of nausea and back pain. Intermittently complains of chest pressure today. Objective: Vital Signs Temp Pulse Resp BP Pulse Ox 36.6 C 93 18 147/80 H 85 L 08/19/16 05:52 08/19/16 11:19 08/19/16 10:36 08/19/16 10:36 08/19/16 11:19 08/18/16 08/19/16 08/20/16 05:59 05:59 05:59 Intake Total 1000 Balance 1000 PT 13.5 SEC (12.0-15.0) 08/19/16 06:05 INR 1.04 (0.83-1.16) 08/19/16 06:05 - Physical Exam Constitutional: no apparent distress Eyes: PERRL Ears, Nose, Mouth, Throat: moist mucous membranes Cardiovascular: regular rate and rhythym Respiratory: no respiratory distress, clear to auscultation Gastrointestinal: normoactive bowel sounds, soft, non-tender abdomen Skin: warm Neurologic: AAOx3 Psychiatric: interacting appropriately ICD10 Worksheet Patient Problems: Problems Problem Status Onset Chest discomfort Acute Dyspnea Acute Back pain Acute Complete heart block Acute Dyspnea Acute Gastric ulcer with perforation Acute Generalized weakness Acute Hip dislocation, left Acute Hypoxemia Acute Osteoporosis Acute S/P hip replacement Acute Syncope Acute
[2016-08-19] MEDS: OXYCODONE/APAP 5/325 TAB PO SCH ×3 (12:02→21:18)
[2016-08-19] MEDS: ENOXAPARIN 40 MG/0.4 ML SYR SC SCH (12:03)
[2016-08-19] MEDS: buPROPion XL 150 MG TAB PO SCH (12:03)
[2016-08-19] MEDS: FLUTICASONE/SALMETER 250/50MCG DISKUS IH SCH ×2 (12:11→20:40)
[2016-08-19] MEDS ORDERED: IOPAMIDOL (ISOVUE-300) 100 ML BTL IV ONE (12:18)
--- NOTE | 2016-08-19 12:23 | CPEKG ---
Heart Rate: 88 RR Interval: 682 P-R Interval: 152 QRSD Interval: 124 QT Interval: 400 QTC Interval: 484 P [place]: 71 QRS [place]: -47 T Wave [place]: 72 EKG Severity - ABNORMAL ECG - EKG Impression: ATRIAL-SENSED VENTRICULAR-PACED RHYTHM EKG Impression: compared to 08/19/2016 at 5:51 a.m., atrial pacing not present Electronically Signed By: Marquita Bustillos 19-Aug-2016 17:33:49
[2016-08-19] MEDS: predniSONE 5 MG TAB PO SCH (12:26)
[2016-08-19] MEDS: PANTOPRAZOLE SODIUM 40 MG TAB PO SCH (12:34)
--- NOTE | 2016-08-19 15:48 | CPEKG ---
Heart Rate: 96 RR Interval: 625 P-R Interval: 140 QRSD Interval: 126 QT Interval: 384 QTC Interval: 486 P [place]: 92 QRS [place]: -29 T Wave [place]: 81 EKG Severity - ABNORMAL ECG - EKG Impression: ATRIAL-SENSED VENTRICULAR-PACED RHYTHM Electronically Signed By: Marquita Bustillos 19-Aug-2016 17:33:18
[2016-08-19] MEDS: IBUPROFEN 200 MG TAB PO SCH ×3 (17:44→22:38)
--- NOTE | 2016-08-19 17:47 | ECHO ---
[id number] + + [address] : : [place] [address] : : [phone] + + Adult Echocardiographic Report + ---+ :Name: Jonas ARAUJO Date: 08/19/2016 04:53 PM : : Hospital Admission Number: [id number] Location: 140: :: 1935 Gender: Female : :Age: 80 yrs Race: WH : :Reason For Study: Eval for Pericardial Effusion : :History: New pericardial effusion noted on CT : + ---+ Left Ventricle The left ventricular ejection fraction is normal. Pericardium/Pleural There is no pericardial effusion. Conclusion This is a limited echo to evaluate for pericardial effusion. There is no pericardial effusion. The left ventricular ejection fraction is normal. Final Reading Physician: Zuleyka Galeana signed on 08/19/2016 05:45 PM Ordering Physician: Leslie Caceres Performed By: Murphy Patino, CS
[2016-08-19] MEDS: GUAIFENESIN/DM 10 ML UDCUP PO PRN ×2 (18:06→22:06)
[2016-08-19] MEDS: GABAPENTIN 300 MG CAP PO SCH (18:10)
[2016-08-19] MEDS: IPRATROPIUM/ALBUTEROL 3 ML DEYVIAL IH SCH (20:40)
[2016-08-19] MEDS ORDERED: GABAPENTIN 300 MG CAP PO SCH (21:00)
[2016-08-19] MEDS ORDERED: SENNOSIDES 1 TAB PO SCH (21:00)
[2016-08-19] MEDS ORDERED: diphenhydrAMINE 25 MG CAP PO PRN (21:47)
[2016-08-20] MEDS: IBUPROFEN 200 MG TAB PO SCH ×2 (05:49→09:03)
[2016-08-20] MEDS: GUAIFENESIN/DM 10 ML UDCUP PO PRN ×2 (05:50→09:40)
[2016-08-20] MEDS: OXYCODONE/APAP 5/325 TAB PO SCH ×3 (05:50→10:00)
[2016-08-20] MEDS ORDERED: LEVOTHYROXINE 75 MCG TAB PO SCH (06:00)
[2016-08-20 07:26] VITALS: BP 142/63; PULSE 74; RESP 15; TEMP 98.3; O2SAT 95
[2016-08-20 07:52] LABS: % IMMATURE GRANULYOCYTES 0.5 % (0.0-1.1); ABSOLUTE IMMATURE GRANULOCYTES 0.05 10^3/uL (0.00-0.10); ADD DIFF? NO; ADD MORPH? NO; ADD SCAN? NO; ATYPICAL LYMPHOCYTE FLAG 0 (0-99); FRAGMENT RBC FLAG 0 (0-99); HEMATOCRIT 31.4 % (38.0-47.0); HEMOGLOBIN 9.7 g/dL (12.6-16.3); LEFT SHIFT FLG 0 (0-99); LIPEMIA HEMOLYSIS FLAG 80 (0-99); MEAN CELL HEMOGLOBIN 28.4 pg (27.9-34.1); MEAN CELL HEMOGLOBIN CONCENTR. 30.9 g/dL (32.4-36.7); MEAN CELL VOLUME 92.1 fL (81.5-99.8); MEAN PLATELET VOLUME 8.9 fL (8.7-11.7); PLATELET CLUMPS FLAG 0 (0-99); PLATELET COUNT 360 10^3/uL (150-400); RED BLOOD CELL COUNT 3.41 10^6/uL (4.18-5.33); RED CELL DISTRIBUTION WIDTH 16.2 % (11.5-15.2)
[2016-08-20] MEDS: ENOXAPARIN 40 MG/0.4 ML SYR SC SCH (08:27)
[2016-08-20] MEDS: GABAPENTIN 300 MG CAP PO SCH (08:28)
[2016-08-20] MEDS: PANTOPRAZOLE SODIUM 40 MG TAB PO SCH (08:28)
[2016-08-20] MEDS: buPROPion XL 150 MG TAB PO SCH (08:28)
[2016-08-20] MEDS: predniSONE 5 MG TAB PO SCH (08:28)
[2016-08-20 08:41] LABS: SEDIMENTATION RATE 34 MM/HR (0-30)
[2016-08-20 08:43] LABS: ANION GAP 7 mEq/L (8-16); C-REACTIVE PROTEIN 27.8 mg/L (<10.0); CARBON DIOXIDE 34 mEq/l (22-31); CHLORIDE 100 mEq/L (97-110); CREATININE 0.7 mg/dL (0.6-1.0); GLOMERULAR FILTRATION RATE > 60; GLUCOSE 79 mg/dL (70-100); POTASSIUM 4.1 mEq/L (3.5-5.2); SODIUM 141 mEq/L (134-144)
[2016-08-20] MEDS: IPRATROPIUM/ALBUTEROL 3 ML DEYVIAL IH SCH (09:20)
[2016-08-20] MEDS: FLUTICASONE/SALMETER 250/50MCG DISKUS IH SCH (09:20)
--- NOTE | 2016-08-20 11:49 | GDS ---
DISCHARGE DIAGNOSES: 1. Chest pain of unclear etiology, likely atypical. 2. History of complete heart block status post pacemaker placement. 3. Chronic respiratory failure, secondary to chronic obstructive pulmonary disease. 4. Chronic pain with continuous narcotic dependency. CONSULTANTS: Dr. Manny Nicole, cardiology. HOSPITAL COURSE AND STAY BY PROBLEM: Chest pain: The patient was placed in observation where seria l troponins were done that were negative. She had an echocardiogram done on 08/19/2016 that did not reveal pericardial effusion. Her ejection fraction is normal. On the day of discharge, the patient states her symptoms have resolved. I have discussed her the ca se with Dr. Nicole. He thinks it is reasonable for her to be discharged and follow up with him in his office. PHYSICAL EXAM: VITAL SIGNS: On the day of discharge, blood pressure 142/63, pulse 74, respiratory rate 15, O2 saturation 95% on 3 L. Temperature afebrile. GENERAL: No acute distress. HEART: S1, S2. LUNGS: Clear. ABDOMEN: Soft. EXTREMITIES: No edema. PERTINENT LABS AND STUDIES DONE THIS HOSPITAL STAY: CT angio of the chest was done on admission rosalie t was negative for PE. Refer to report for full details. DISCHARGE MEDICATIONS: Please refer to discharge medication reconciliation in [facility] for details. DISCHARGE INSTRUCTIONS: The patient will be discharged from the hospital. She was instructed to se ek medical attention if her chest pain returns. Otherwise, she should follow up with Dr. Nicole in his office as scheduled in the next few days. /[id number]/MODL
== END 2016-08-20 11:45 | disposition home or self-care (01) ==
LOC: EDUNIT# → F1N 09:32
PROVIDERS: ADMIT Hospitalist; ATTEND Family Medicine
DX: R07.89 Other chest pain (principal); J44.9 Chronic obstructive pulmonary disease, unspecified; J96.10 Chronic respiratory failure, unspecified whether with hypoxia or hypercapnia; G89.29 Other chronic pain; M54.9 Dorsalgia, unspecified; F11.20 Opioid dependence, uncomplicated; M48.54XD Collapsed vertebra, not elsewhere classified, thoracic region, subsequent encounter for fracture with routine healing; I25.10 Atherosclerotic heart disease of native coronary artery without angina pectoris; I34.0 Nonrheumatic mitral (valve) insufficiency; Z95.0 Presence of cardiac pacemaker; E03.9 Hypothyroidism, unspecified; M81.0 Age-related osteoporosis without current pathological fracture; Z87.11 Personal history of peptic ulcer disease; Z87.891 Personal history of nicotine dependence
CPT/HCPCS: 71010; 71275; 93005; 93308; 96374; 96375; 99285; G0378; J1650; J3010; Q9967

== ENCOUNTER 2016-09-24 18:12 | Inpatient (IN) | payer OTHER, MEDICAID ==
--- NOTE | 2016-09-24 18:33 | EDPHY ---
H & P Stated Complaint: "feels like L hip is coming out of socket" hx of replacement Time Seen by Provider: 09/24/16 18:21 HPI/ROS: CHIEF COMPLAINT: Possible left hip dislocation HISTORY OF PRESENT ILLNESS: 80-year-old female history of bilateral hip arthroplasty, multiple left hip revision, followed primarily by 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 She has been able to bear weight albeit with subjective sensation of instability and pain. No direct trauma or fall. Arrives via ambulance PRIMARY CARE PROVIDER: Dr. Alexis Ferrara REVIEW OF SYSTEMS: A ten point review of systems was performed and is negative with the exception of the items mentioned in the HPI PAST MEDICAL & SURGICAL HISTORY: bilateral hip arthroplasty. Multiple left hip revision surgeries SOCIAL HISTORY:nonsmoker PHYSICAL EXAM (Prior to examination, patient consented to physical exam, hands were washed and my usual and customary physical exam procedures followed) 1) GENERAL: Well-developed, well-nourished, alert and oriented. 2) HEAD: Normocephalic, atraumatic 3) HEENT: Pupils equal, round, reactive to light bilaterally. Sclera anicteric. 4) NECK: Full range of motion, no meningeal signs. 5) LUNGS: Clear auscultation bilaterally 6) HEART: Regular rate and rhythm, no murmur, no heave, no gallop. 7) ABDOMEN: No guarding, no rebound, no focal tenderness, 8) MUSCULOSKELETAL: left lower extremity, no shortening no malrotation. DP PT pulses present and brisk. Brisk capillary refill. She has reproducible pain to the left hip with range of motion. Normal color normal temperature distally . 9) BACK: no visual or palpable abnormality. 10) SKIN: No rash, no petechiae. DIFFERENTIAL DIAGNOSIS: in no particular include but limited to fracture, dislocation, periprosthetic fracture - Personal History Tetanus Vaccine Date: 2014 - Medical/Surgical History Hx Asthma: Yes Hx Chronic Respiratory Disease: Yes Hx Diabetes: No Hx Cardiac Disease: Yes Hx Renal Disease: No Hx Cirrhosis: No Hx Alcoholism: No Hx HIV/AIDS: No Hx Splenectomy or Spleen Trauma: No Other PMH: appy, hypothyroid, arthritis, copd, tanja hip replacements,HIP REVISION 03/2016, prolapsed bladder, "kidney stone surgery",. spinal stenosis. chronic pain, PPM. scoliosis. Posterior hip dislocation x2. T9 compression fracture with kyphoplasty. Surgery on T9 vertebrae - Social History Smoking Status: Former smoker Constitutional: Initial Vital Signs Temperature (C) 37 C 09/24/16 18:19 Heart Rate 102 H 09/24/16 18:19 Respiratory Rate 17 09/24/16 18:19 Blood Pressure 185/99 H 09/24/16 18:19 O2 Sat (%) 85 L 09/24/16 18:19 O2 Delivery Mode Room Air Allergies/Adverse Reactions: celecoxib [From Celebrex] Allergy (Severe, Verified 09/24/16 18:19) Weight gain, Fatigue, Increased Pain codeine [Codeine] Allergy (Severe, Verified 09/24/16 18:19) Nausea Vomiting duloxetine HCl [From Cymbalta] Allergy (Severe, Verified 09/24/16 18:19) Vomiting hydrocodone bitartrate [From Vicodin] Allergy (Severe, Verified 09/24/16 18:19) Nausea Vomiting levofloxacin [From Levaquin] Allergy (Severe, Verified 09/24/16 18:19) Swelling/neck,face,throat sulfamethoxazole [From Septra] Allergy (Severe, Verified 09/24/16 18:19) Nausea Vomiting trimethoprim [From Septra] Allergy (Severe, Verified 09/24/16 18:19) Nausea Vomiting aspirin Allergy (Intermediate, Verified 09/24/16 18:19) stomach pain cephalexin monohydrate [From Keflex] Allergy (Intermediate, Verified 09/24/16 18 :19) Stomach Pain clarithromycin [From Biaxin] Allergy (Intermediate, Verified 09/24/16 18:19) Stomach Pain orphenadrine Allergy (Intermediate, Verified 09/24/16 18:19) Stomach pain potassium clavula *RETIRED-02/23/12 [From Augmentin] Allergy (Intermediate, Verified 09/24/16 18:19) Itching tetracycline [Tetracycline] Allergy (Intermediate, Verified 09/24/16 18:19) Stomach Pain amoxicillin trihydrate [From Augmentin] Allergy (Verified 09/24/16 18:19) ciprofloxacin [From Cipro] Allergy (Verified 09/24/16 18:19) ciprofloxacin HCl [From Cipro] Allergy (Verified 09/24/16 18:19) potassium clavulanate [From Augmentin] Allergy (Verified 09/24/16 18:19) shrimp Allergy (Verified 09/24/16 18:19) ORPHENGESIC Allergy (Intermediate, Uncoded 08/19/16 05:51) Stomach Pain Terpin hydrate Allergy (Intermediate, Uncoded 08/19/16 05:51) Stomach pain Home Medications: Medication Instructions Recorded Ascorbic Acid [Vitamin C 500 mg 1,000 mg PO BID 08/26/13 (*)] Calcium Carbonate [Tums 500MG (*)] 1,000 - 1,500 mg PO DAILY 08/26/13 Fluticasone/Salmeter 250/50Mcg 1 puffs IH BID 08/26/13 [Advair 250/50 (*)] Herbals/Supplements -Info Only 1 each PO AD 08/26/13 Sennosides [Senokot] 3 each PO HS 08/26/13 Pantoprazole Sodium [Protonix 40mg 40 mg PO DAILY 09/15/13 (*)] Alendronate Sodium [Fosamax 70 MG 70 mg PO BERNAL@07 03/29/16 (*)] Gabapentin [Neurontin 300 MG (*)] 300 mg PO BIDMEAL 03/29/16 Levothyroxine [Synthroid 75 mcg 75 mcg PO DAILY06 03/29/16 (*)] buPROPion XL [Wellbutrin 150mg XL] 150 mg PO DAILY 03/29/16 diphenhydrAMINE [Benadryl 25 MG 25 mg PO HS 05/17/16 (*)] Albuterol [Ventolin Hfa Inhaler] 2 puffs IH QID PRN 05/26/16 Fluticasone Nasal [Flonase Nasal 1 sprays EACHNARE DAILY PRN 07/20/16 [place]] Gabapentin [Neurontin 300 MG (*)] 600 mg PO HS 07/20/16 Dicyclomine HCl 20 mg PO QID PRN 07/25/16 predniSONE 7.5 mg PO DAILY tab 07/26/16 Cholecalciferol Vit D3 [Vitamin D3 2,000 units PO DAILY 08/11/16 (*)] HYDROmorphone HCL [Dilaudid 2 mg 2 - 4 mg PO Q4H PRN 08/11/16 (*)] Ipratropium/Albuterol [Duoneb (*)] 3 ml IH BID 08/11/16 Promethazine HCl [Phenergan 25mg 25 mg PO Q8H PRN 08/11/16 (*)] oxyCODONE IR [Oxycodone Ir (*)] 15 mg PO Q4H PRN 08/11/16 oxyCODONE/APAP 5/325 [Percocet 1 tab PO .X5D 08/11/16 5/325 (*)] Ibuprofen [Motrin (*)] 400 mg PO .X5D 08/19/16 Medical Decision Making - Diagnostics Imaging: Imaging Impressions Hip X-Ray 09/24/16 18:21 Impression: Anatomically-aligned bilateral hip arthroplasties with a modified left acetabular component, similar to previous studies. There is no current evidence of a hip dislocation. ED Course/Re-evaluation: This patient has been re-evaluated with serial exams, discussed case Dr. Sola Mesa in the ER. No evidence of dislocation left hip. had a lengthy discussion with the patient in for occluding her nurse in the ER about her safety. She lives on the [address] [place] [address] apartment, had to be transported via [facility] caring patient down the stairs. Her last in-home nurse appointment with today. She has no definitive means of getting further food to her and I am concerned about her safety inability to care for herself. She agrees to stay in the hospital for further evaluation, possible transition to rehab or halfway facility. Consultation with Dr. Rogerio Cohen at 7:35 p.m. who will admit patient. - Data Points Laboratory Results: Laboratory Results 09/24/16 19:50 09/24/16 09/24/16 19:50 19:50 WBC 8.65 10^3/uL 10^3/uL (3.80-9.50) RBC 4.27 10^6/uL 10^6/uL (4.18-5.33) Hgb 11.7 g/dL L g/dL (12.6-16.3) Hct 38.4 % % (38.0-47.0) MCV 89.9 fL fL (81.5-99.8) MCH 27.4 pg L pg (27.9-34.1) MCHC 30.5 g/dL L g/dL (32.4-36.7) RDW 16.3 % H % (11.5-15.2) Plt Count 338 10^3/uL 10^3/uL (150-400) MPV 9.3 fL fL (8.7-11.7) Neut % (Auto) 72.4 % % (39.3-74.2) Lymph % (Auto) 11.8 % L % (15.0-45.0) [place] % (Auto) 10.3 % % (4.5-13.0) Eos % (Auto) 4.7 % % (0.6-7.6) Baso % (Auto) 0.2 % L % (0.3-1.7) Nucleat RBC Rel Count 0.0 % % (0.0-0.2) Absolute Neuts (auto) 6.26 10^3/uL 10^3/uL (1.70-6.50) Absolute Lymphs (auto) 1.02 10^3/uL 10^3/uL (1.00-3.00) Absolute Monos (auto) 0.89 10^3/uL H 10^3/uL (0.30-0.80) Absolute Eos (auto) 0.41 10^3/uL H 10^3/uL (0.03-0.40) Absolute Basos (auto) 0.02 10^3/uL 10^3/uL (0.02-0.10) Absolute Nucleated RBC 0.00 10^3/uL 10^3/uL (0-0.01) Immature Gran % 0.6 % % (0.0-1.1) Immature Gran # 0.05 10^3/uL 10^3/uL (0.00-0.10) Sodium Pending Potassium Pending Chloride Pending Carbon Dioxide Pending Anion Gap Pending BUN Pending Creatinine Pending Estimated GFR Pending Glucose Pending Calcium Pending Departure - Departure Disposition: [facility] Inpatient Acute Clinical Impression: Chronic left hip pain Condition: Fair
[2016-09-24] MEDS ORDERED: OXYCODONE/APAP 5/325 TAB ONE (19:14)
[2016-09-24] MEDS ORDERED: IBUPROFEN 600 MG TAB PO ONE (19:14)
[2016-09-24 20:01] LABS: % IMMATURE GRANULYOCYTES 0.6 % (0.0-1.1); ABSOLUTE IMMATURE GRANULOCYTES 0.05 10^3/uL (0.00-0.10); ADD DIFF? NO; ADD MORPH? NO; ADD SCAN? NO; ATYPICAL LYMPHOCYTE FLAG 0 (0-99); FRAGMENT RBC FLAG 0 (0-99); HEMATOCRIT 38.4 % (38.0-47.0); HEMOGLOBIN 11.7 g/dL (12.6-16.3); LEFT SHIFT FLG 0 (0-99); LIPEMIA HEMOLYSIS FLAG 80 (0-99); MEAN CELL HEMOGLOBIN 27.4 pg (27.9-34.1); MEAN CELL HEMOGLOBIN CONCENTR. 30.5 g/dL (32.4-36.7); MEAN CELL VOLUME 89.9 fL (81.5-99.8); MEAN PLATELET VOLUME 9.3 fL (8.7-11.7); PLATELET CLUMPS FLAG 0 (0-99); PLATELET COUNT 338 10^3/uL (150-400); RED BLOOD CELL COUNT 4.27 10^6/uL (4.18-5.33); RED CELL DISTRIBUTION WIDTH 16.3 % (11.5-15.2)
[2016-09-24] MEDS ORDERED: ACETAMINOPHEN 325 MG TAB PO PRN (20:27)
[2016-09-24] MEDS ORDERED: ONDANSETRON 4 MG/2 ML VIAL IVP PRN (20:27)
[2016-09-24] MEDS ORDERED: ONDANSETRON DISINTEGRATING 4 MG TAB PO PRN (20:27)
[2016-09-24] MEDS ORDERED: oxyCODONE IR 15 MG TAB PO PRN (20:28)
[2016-09-24] MEDS ORDERED: HYDROmorphONE/DILAUDID 2 MG TAB PO PRN (20:28)
[2016-09-24] MEDS ORDERED: CALCIUM CARBONATE 500 MG CHEWABLE TAB PO PRN (20:28)
[2016-09-24] MEDS ORDERED: PROMETHAZINE HCL 25 MG TAB PO PRN (20:28)
[2016-09-24] MEDS ORDERED: DICYCLOMINE 20 MG TAB PO PRN (20:28)
[2016-09-24] MEDS ORDERED: FLUTICASONE NASAL 120 SPRAYS/16 GM MDI EACHNARE PRN (20:28)
[2016-09-24] MEDS ORDERED: IPRATROPIUM/ALBUTEROL 3 ML DEYVIAL IH PRN (20:28)
[2016-09-24 20:55] LABS: ANION GAP 7 mEq/L (8-16); CALCIUM 9.3 mg/dL (8.5-10.4); CARBON DIOXIDE 28 mEq/l (22-31); CHLORIDE 103 mEq/L (97-110); CREATININE 0.6 mg/dL (0.6-1.0); GLOMERULAR FILTRATION RATE > 60; GLUCOSE 81 mg/dL (70-100); POTASSIUM 3.7 mEq/L (3.5-5.2); SODIUM 138 mEq/L (134-144)
[2016-09-24] MEDS ORDERED: diphenhydrAMINE 25 MG CAP PO SCH (21:00)
[2016-09-24] MEDS ORDERED: ALBUTEROL 60 PUFFS/8 GM MDI IH PRN (21:00)
[2016-09-24] MEDS ORDERED: SENNOSIDES 1 TAB PO SCH (21:00)
[2016-09-24] MEDS: FLUTICASONE/SALMETER 500/50MCG DISKUS IH SCH (21:16)
[2016-09-24] MEDS: ASCORBIC ACID 500 MG TAB PO SCH (21:18)
[2016-09-24] MEDS: OXYCODONE/APAP 5/325 TAB PO SCH (21:23)
[2016-09-24] MEDS: IBUPROFEN 200 MG TAB PO SCH (21:23)
--- NOTE | 2016-09-24 21:43 | GHP ---
[f rep st] HISTORY AND PHYSICAL DATE OF ADMISSION: 09/24/2016 CHIEF COMPLAINT: Hip pain. HISTORY OF PRESENT ILLNESS: This is a 80-year-old female with multiple medical problems, as well as bilateral hip replacements with multiple left revisions, who presents with left hip pain. This occ urred when she was reaching down to grain picker poop off the carpet. She felt immediate pain in her lef t hip as though it had slipped out of joint again. She was able to ambulate on it, but it caused se kim pain. It currently feels swollen. She does not have any numbness or loss of sensation in her foot. She is very unsteady on her feet. PAST MEDICAL/SURGICAL HISTORY: 1. Bilateral BROOKS. 2. Complete heart block, status post pacemaker recently. 3. COPD. 3 L oxygen requirement at baseline. 4. Hypothyroid. 5. Chronic pain on continuous narcotics. 6. Spinal stenosis. 7. Mitral regurgitation. 8. Osteoporosis. 9. Peptic ulcer disease with a perforation. MEDICATIONS: Please see medication reconciliation. ALLERGIES: Celebrex, codeine, Cymbalta, Vicodin, Levaquin, Septra, aspirin, Keflex, Biaxin, orphena drine, potassium, tetracycline, Augmentin, ciprofloxacin, shrimp, terpin hydrate. FAMILY HISTORY: Parents are . SOCIAL HISTORY: She lives with her dog named Jackie who is a gibraltarian. She does not drink. She qu it smoking 35 years ago. She has 19 steps to get up to her apartment. REVIEW OF SYSTEMS: 10-point review of systems is conducted and is negative except per HPI. PHYSICAL EXAM: VITAL SIGNS: Blood pressure is 185/99, heart rate 102, respiration rate 17, saturat ing 85% on room air. Temperature is 37. GENERAL: The patient is a pleasant elderly female, appears mildly uncomfortable otherwise in no acu te distress. HEENT: Normocephalic, atraumatic. CARDIOVASCULAR: Regular rate and rhythm. No murmurs, rubs, or gallops. There is a pacemaker in th e left upper chest. PULMONARY: To not be in respiratory distress. She has diminished lung sounds bilaterally. ABDOMEN: Soft, nontender, nondistended. SKIN: No rash. : No [place]. NEUROLOGIC: Alert and oriented x3. She is moving all extremities. She has sensation intact in the left foot. PSYCHIATRIC: Normal mood and affect. EXTREMITIES: Her left hip to be tender to palpation with internal and external rotation. It does n ot appear to be dislocated. LABS: CBC shows a hemoglobin of 11.7. This is baseline for her. Basic metabolic panel is pending. DATA: 1. I discussed this with Joey Montaño in the emergency department. Will admit to med/surg. 2. I personally viewed and interpreted her pelvic x-ray. This shows bilateral hip replacements. T here is no acute dislocation. This concurs with the radiologist's read. IMPRESSION: 80-year-old female presents with left hip pain. 1. Left hip pain: No evidence of dislocation. She was road tested in the emergency department and is unstable on her feet. High fall risk. Thus admitted to the hospital. She is not safe to go ho me. She will be treated with her home pain medications. She will see Physical therapy and Occupati onal therapy while here. Will have case management see her as well. 2. Complete heart block, status post recent pacemaker: No acute issues. 3. Chronic respiratory failure/chronic obstructive pulmonary disease on 3 L: Continue her home inh adina. 4. Hypothyroid: Synthroid. 5. Chronic pain on continuous narcotics: Continue these. 6. Code status is full. 7. Venous thromboembolism risk is moderate to high. I will give her Lovenox. /[id number]/MODL
[2016-09-24] MEDS ORDERED: GABAPENTIN 300 MG CAP PO SCH (22:30)
[2016-09-25] MEDS: OXYCODONE/APAP 5/325 TAB PO SCH ×3 (05:53→15:29)
[2016-09-25] MEDS: IBUPROFEN 200 MG TAB PO SCH ×3 (05:54→15:29)
[2016-09-25] MEDS ORDERED: LEVOTHYROXINE 50 MCG TAB PO SCH (06:00)
[2016-09-25 07:52] VITALS: BP 137/64; PULSE 89; RESP 17; TEMP 98.1; O2SAT 93
[2016-09-25] MEDS ORDERED: GABAPENTIN 300 MG CAP PO SCH (08:00)
[2016-09-25] MEDS ORDERED: CHOLECALCIFEROL VIT D3 2,000 UNITS TAB/CAP PO SCH (09:00)
[2016-09-25] MEDS ORDERED: buPROPion XL 150 MG TAB PO SCH (09:00)
[2016-09-25] MEDS ORDERED: predniSONE 10 MG TAB PO SCH (09:00)
[2016-09-25] MEDS: ASCORBIC ACID 500 MG TAB PO SCH (09:00)
[2016-09-25] MEDS ORDERED: PANTOPRAZOLE SODIUM 40 MG TAB PO SCH (09:00)
[2016-09-25] MEDS ORDERED: ENOXAPARIN 40 MG/0.4 ML SYR SC SCH (09:00)
[2016-09-25] MEDS: FLUTICASONE/SALMETER 500/50MCG DISKUS IH SCH (09:06)
--- NOTE | 2016-09-25 16:04 | GDS ---
[f rep st] DISCHARGE SUMMARY DISCHARGE DIAGNOSES: Known acute diagnoses on this admission: 1. Acute left hip pain with possible near dislocation. The hip did not dislocate. 2. Chronic respiratory failure with baseline need of 3 L oxygen and stable. Chronic diagnoses: 1. Bilateral total hip arthroplasty. 2. Complete heart block, status post pacemaker. 3. Chronic obstructive pulmonary disease. 4. Hypothyroid. 5. Chronic pain, on continuous narcotics. 6. Spinal stenosis. 7. Mitral regurgitation. 8. Osteoporosis. 9. Peptic ulcer disease, status post perforation. CONSULTATION: None. PROCEDURES: None. HOSPITAL COURSE: A 80-year-old female with multiple medical problems, when she felt a pop and significant pain in her left hip when she reached down to pick something off the carpet. She felt the left hip had dislocated, and she was unable to ambulate on it secondary to pain. She was brought to the emergency department, where because of significant left hip pain and fear of re- dislocation the patient was admitted on observation. Her pain significantly subsided on her usual narcotic medication. X-rays confirmed that the hip was in joint. There was no confirmation that the hip had dislocated; although by history, the patient gave a significant story of a significant click in the hip and a feeling of instability as she almost fell. I spoke at length with the patient and reviewed the x-rays with Radiology. She has very significant osteoporosis and limitation of stability for the arthroplasty which was placed previously by Dr. Ochoa. I have reassured the patient that the hip is located in the joint but have referred her back to Dr. Ochoa for further management of the problem of instability. It is clear this is a large and complicated problem, and I have assured her that Dr. Ochoa is the very best person to ongoing care for this issue. I have strongly encouraged her not to seek other physicians for this, but only go through Dr. Ochoa for further referral and assistance. She is accepting of this recommendation, and I have encouraged her to see Dr. Ochoa within the week. MEDICATIONS: Discharge medications are the same as her admission medications without changes. None of her medications were stopped or changed. PLAN: The patient is discharged home. She lives alone and has her own dog, which provides her comfort. I have encouraged her to see Dr. Ochoa within the week and to see Dr. Ferrara, her PCP, as needed. I have spoken with Dr. Carranza's office at [phone] and left a message regarding this situation. TIME: This discharge required 45 minutes, greater than 50% to drug abuse counselor and coordinate care. Copy requested to: Jose Carranza MD /[id number]/MODL MTDD
--- NOTE | 2016-09-25 16:13 | PDIAF ---
- Diagnosis Code Status: Full Code - Medication Management Discharge Medications: Medications to Continue on Transfer Ascorbic Acid [Vitamin C 500 mg (*)] 1,000 mg PO BID 08/26/13 [Last Taken ] Calcium Carbonate [Tums 500MG (*)] 1,000 - 1,500 mg PO DAILY PRN 08/26/13 [Last Taken 08/18/16] Sennosides [Senokot] 3 each PO HS 08/26/13 [Last Taken 09/23/16] Pantoprazole Sodium [Protonix 40mg (*)] 40 mg PO DAILY 09/15/13 [Last Taken 05/31] Alendronate Sodium [Fosamax 70 MG (*)] 70 mg PO BERNAL@07 03/29/16 [Last Taken 09/17] Gabapentin [Neurontin 300 MG (*)] 300 mg PO BIDMEAL 03/29/16 [Last Taken ] buPROPion XL [Wellbutrin 150mg XL] 150 mg PO DAILY 03/29/16 [Last Taken 09/24/16 ] diphenhydrAMINE [Benadryl 25 MG (*)] 25 mg PO HS 05/17/16 [Last Taken 09/23/16] Albuterol [Ventolin Hfa Inhaler] 2 puffs IH QID PRN 05/26/16 [Last Taken ] Fluticasone Nasal [Flonase Nasal [place]] 1 sprays EACHNARE DAILY PRN 07/20/16 [ Last Taken 08/18/16] Gabapentin [Neurontin 300 MG (*)] 600 mg PO HS 07/20/16 [Last Taken 09/23/16] Dicyclomine HCl 20 mg PO QID PRN 07/25/16 [Last Taken 08/10/16] Cholecalciferol Vit D3 [Vitamin D3 (*)] 2,000 units PO DAILY 08/11/16 [Last Taken 09/24/16] HYDROmorphone HCL [Dilaudid 2 mg (*)] 2 mg PO DAILY PRN 08/11/16 [Last Taken 7 Days Ago] Ipratropium/Albuterol [Duoneb (*)] 3 ml IH BID PRN 08/11/16 [Last Taken 21:00] Promethazine HCl [Phenergan 25mg (*)] 25 mg PO Q8H PRN 08/11/16 [Last Taken ] oxyCODONE IR [Oxycodone Ir (*)] 15 mg PO DAILY PRN 08/11/16 [Last Taken 21:00] oxyCODONE/APAP 5/325 [Percocet 5/325 (*)] 1 tab PO .X5D 08/11/16 [Last Taken 05/31] Ibuprofen [Motrin (*)] 400 mg PO .X5D 08/19/16 [Last Taken 09/24/16] Fluticasone/Salmeter 500/50Mcg [Advair 500/50 (*)] 1 puffs IH BID 09/24/16 [ Last Taken 09/24/16] Levothyroxine [Synthroid 50 mcg (*)] 50 mcg PO DAILY06 09/24/16 [Last Taken 05/31] predniSONE [Prednisone] 10 mg PO DAILY 09/24/16 [Last Taken 09/24/16] Discharge Medications: Refer to the Discharge Home Medication list for PRN reason. - Orders Services needed: Home Care, Registered Nurse, Certified Fashion Adviser, Physical Therapy, Occupational Therapy Home Care Face to Face: I certify that this patient was under my care and that I had the required [id number] encounter meeting the encounter requirements on the discharge day. My findings support the fact that the patient is homebound as defined in CMS Chapter 7 Medicare Benefits Manual 30.1.1, The condition of the patient is such that there exists a normal inability to leave home and consequently, leaving home would require a considerable and taxing effort. Diet Recommendation: no restrictions on diet (See Dr Villarreal in 5-7 days for further care of your left hip) Diet Texture: Regular Texture Diet - Follow Up Care Current Providers and Referrals: Alexis Ferrara MD [Primary Care Provider] - As per Instructions
[2016-09-28] MEDS ORDERED: ALENDRONATE SODIUM 70 MG TAB PO SCH (07:00)
== END 2016-09-25 16:49 | disposition home health service (06) | DRG 556 ==
LOC: EDUNIT# → F3N 20:33
PROVIDERS: ADMIT Student in an Organized Health Care Education/Training Program; ATTEND Student in an Organized Health Care Education/Training Program
DX: M25.552 Pain in left hip (principal); J96.10 Chronic respiratory failure, unspecified whether with hypoxia or hypercapnia; J44.9 Chronic obstructive pulmonary disease, unspecified; E03.9 Hypothyroidism, unspecified; G89.29 Other chronic pain; M81.0 Age-related osteoporosis without current pathological fracture; M48.00 Spinal stenosis, site unspecified; I34.0 Nonrheumatic mitral (valve) insufficiency; K27.9 Peptic ulcer, site unspecified, unspecified as acute or chronic, without hemorrhage or perforation; Z96.643 Presence of artificial hip joint, bilateral; Z95.0 Presence of cardiac pacemaker
CPT/HCPCS: 97161-GP; 97165-GO; G8978-GP-CJ; G8979-GP-CI; G8987-GO-CK; G8988-GO-CI; J1650

== ENCOUNTER 2016-10-21 07:24 | Inpatient (IN) | payer OTHER, MEDICAID ==
--- NOTE | 2016-10-21 07:20 | EDPHY ---
HPI/HX/ROS/PE/MDM Narrative: CHIEF COMPLAINT: Possible left hip dislocation HPI: This patient is a 80 year old female with a history of bilateral hip arthroplasty and multiple left hip revision surgeries who presents to the Emergency Department via EMS for a suspected recurrent left hip dislocation. She was treated for a left hip dislocation on 05/26/2016 and was seen again in this facility on 09/24/2016 for the same complaint, though there was no evidence of a dislocation at that time. Today, she reports that she was unable to move her left leg upon awaking this morning. She denies any instigating trauma. She complains of moderate pain to her left hip with some alleviation after administration of Fentanyl by EMS in transport. She has no additional complaints. REVIEW OF SYSTEMS: Aside from elements discussed in the HPI, a comprehensive 10-point review of systems was reviewed and is negative. PMH: Diabetes, COPD, hypothyroid, bilateral hip arthroplasty, multiple left hip revision surgeries (followed by Dr. Bonilla, orthopedic surgery) SOCIAL HISTORY: Non-smoker PHYSICAL EXAM: General:Patient is alert, in no acute distress. ENT:Eyes are normal to inspection. ENT inspection normal. Neck: Normal inspection. Full range of motion. Respiratory:No respiratory distress. Breath sounds normal bilaterally. Cardiovascular: Regular rate and rhythm. Strong peripheral pulses. Normal cap refill. Abdomen:The abdomen is nontender to palpation. There are no peritoneal signs. There are normal bowel sounds. Back: Normal to inspection. No tenderness to palpation. Skin: Normal color. No rash. Warm and dry. Extremities: Left hip deformity. Skin intact. Neuro: Oriented x3. Normal motor function. Normal sensory function. ED Course: 723: Met EMS at bedside. 200mcg Fentanyl in transport for pain. Stable vitals: BP 180/76, O2Sat 96% on 2L (baseline for COPD) BGL 105. This 80-year-old female has a history of bilateral hip arthroplasties with multiple dislocations and subsequent revisions to the left hip. She presents complaining that she is unable to move her left leg and suspects a repeat dislocation. Her exam is significant for visible left hip deformity limiting motion to her left lower extremity. Prior medical records reviewed by myself, including visits to the ED for same complaint in 09/2016 and 05/2016. Will proceed with x-ray of the left hip. 802: Imaging reviewed and confirms left hip dislocation. I discussed these results with the patient. She refuses to see Dr. Bonilla, who normally follows her case. Will proceed with orthopedic consult to our on-call physician. 814: Consultation with Becky Ramirez. Dr. Livia Mullen, hospitalist, accepts admission to med/surg. 817: I discussed the case with the Cafe Worker for Dr. Ledesma, who is in surgery. He will notify Dr. Ledesma when able. Dr. Ledesma, orthopedist, will visit the patient in the hospital. 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 This is a recurring problem for her and she has a challenging social situation. Given history of recent heart block, age, co-morbidities and recurrence of dislocation, I do not think the ED is the most appropriate place for reduction and sedation, so this will be performed in the OR suite. Due to co-morbidities and social issues just mentioned, the patient will require hospitalization. - Data Points Imaging Results: Imaging Impressions Hip X-Ray 10/21/16 07:33 Impression: Dislocation of the femoral component of the total left hip arthroplasty. General Initial Vital Signs: Initial Vital Signs Temperature (C) 36.9 C 10/21/16 07:28 Heart Rate 87 10/21/16 07:28 Respiratory Rate 17 10/21/16 07:28 Blood Pressure 164/82 H 10/21/16 07:28 O2 Sat (%) 92 10/21/16 07:28 O2 Delivery Mode Nasal Cannula O2 (L/minute) 4 Allergies/Adverse Reactions: celecoxib [From Celebrex] Allergy (Severe, Verified 10/21/16 07:28) Weight gain, Fatigue, Increased Pain duloxetine HCl [From Cymbalta] Allergy (Severe, Verified 10/21/16 07:28) Vomiting levofloxacin [From Levaquin] Allergy (Severe, Verified 10/21/16 07:28) Swelling/neck,face,throat sulfamethoxazole [From Septra] Allergy (Severe, Verified 10/21/16 07:28) Nausea Vomiting aspirin Allergy (Intermediate, Verified 10/21/16 07:28) stomach pain cephalexin monohydrate [From Keflex] Allergy (Intermediate, Verified 10/21/16 07 :28) Stomach Pain clarithromycin [From Biaxin] Allergy (Intermediate, Verified 10/21/16 07:28) Stomach Pain codeine [Codeine] Allergy (Intermediate, Verified 10/21/16 07:28) Nausea Vomiting hydrocodone bitartrate [From Vicodin] Allergy (Intermediate, Verified 10/21/16 07:28) Nausea Vomiting orphenadrine Allergy (Intermediate, Verified 10/21/16 07:28) Stomach pain tetracycline [Tetracycline] Allergy (Intermediate, Verified 10/21/16 07:28) Stomach Pain amoxicillin trihydrate [From Augmentin] Allergy (Verified 10/21/16 07:28) ciprofloxacin [From Cipro] Allergy (Verified 10/21/16 07:28) potassium clavulanate [From Augmentin] Allergy (Verified 10/21/16 07:28) shrimp Allergy (Verified 10/21/16 07:28) ORPHENGESIC Allergy (Intermediate, Uncoded 08/19/16 05:51) Stomach Pain Terpin hydrate Allergy (Intermediate, Uncoded 08/19/16 05:51) Stomach pain Home Medications: Medication Instructions Recorded Ascorbic Acid [Vitamin C 500 mg 1,000 mg PO BID 08/26/13 (*)] Calcium Carbonate [Tums 500MG (*)] 1,000 - 1,500 mg PO DAILY PRN 08/26/13 Sennosides [Senokot] 2 each PO HS 08/26/13 Pantoprazole Sodium [Protonix 40mg 40 mg PO DAILY 09/15/13 (*)] Alendronate Sodium [Fosamax 70 MG 70 mg PO BERNAL@07 03/29/16 (*)] Gabapentin [Neurontin 300 MG (*)] 300 mg PO BIDMEAL 03/29/16 buPROPion XL [Wellbutrin 150mg XL] 150 mg PO DAILY 03/29/16 diphenhydrAMINE [Benadryl 25 MG 25 mg PO HS 05/17/16 (*)] Albuterol [Ventolin Hfa Inhaler] 2 puffs IH QID PRN 05/26/16 Fluticasone Nasal [Flonase Nasal 1 sprays EACHNARE DAILY PRN 07/20/16 [place]] Gabapentin [Neurontin 300 MG (*)] 600 mg PO HS 07/20/16 Dicyclomine HCl 20 mg PO QID PRN 07/25/16 Cholecalciferol Vit D3 [Vitamin D3 2,000 units PO DAILY 08/11/16 (*)] HYDROmorphone HCL [Dilaudid 2 mg 2 mg PO DAILY PRN 08/11/16 (*)] Ipratropium/Albuterol [Duoneb (*)] 3 ml IH QID PRN 08/11/16 Promethazine HCl [Phenergan 25mg 25 mg PO Q8H PRN 08/11/16 (*)] oxyCODONE/APAP 5/325 [Percocet 1 tab PO .X5D 08/11/16 5/325 (*)] Ibuprofen [Motrin (*)] 400 mg PO .X5D 08/19/16 Fluticasone/Salmeter 500/50Mcg 1 puffs IH BID 09/24/16 [Advair 500/50 (*)] Levothyroxine [Synthroid 50 mcg 50 mcg PO DAILY06 09/24/16 (*)] Benzonatate [Tessalon Pearles (RX)] 100 mg PO TID PRN 10/21/16 HYDROcodone BIT/HOMATROP ME-BR 5 - 10 ml PO HS PRN 10/21/16 [Hydrocodone-Homatropine Syrup] Herbals/Supplements -Info Only 1 each PO DAILY 10/21/16 Nystatin Powder [Mycostatin Powder 1 yoan TP BID 10/21/16 (RX)] predniSONE 7.5 mg PO DAILY 10/21/16 Departure - Departure Disposition: [facility] Inpatient Acute Clinical Impression: Hip dislocation, left Qualifiers: Encounter type: sequela Qualified Code(s): S73.005S - Unspecified dislocation of left hip, sequela Condition: Fair Report Scribed for: Manuel Montalvo Report Scribed by: Emily Meredith Date of Report: 10/21/16 Time of Report: 07:20 Physician Review and Approval Statement: Portions of this note were transcribed by an ED scribe. I personally performed the history, physical exam, and medical decision making; and confirm the accuracy of the information in the transcribed note.
[2016-10-21] MEDS ORDERED: DIAZEPAM 10 MG/2 ML SYR ONE (08:04)
[2016-10-21] MEDS ORDERED: DIAZEPAM 10 MG/2 ML SYR IVP ONE (08:05)
[2016-10-21 08:31] LABS: % IMMATURE GRANULYOCYTES 0.6 % (0.0-1.1); ABSOLUTE IMMATURE GRANULOCYTES 0.05 10^3/uL (0.00-0.10); ADD DIFF? NO; ADD MORPH? NO; ADD SCAN? NO; ATYPICAL LYMPHOCYTE FLAG 20 (0-99); FRAGMENT RBC FLAG 0 (0-99); HEMOGLOBIN 11.8 g/dL (12.6-16.3); LEFT SHIFT FLG 0 (0-99); LIPEMIA HEMOLYSIS FLAG 70 (0-99); MEAN CELL HEMOGLOBIN CONCENTR. 29.5 g/dL (32.4-36.7); MEAN CELL VOLUME 91.5 fL (81.5-99.8); MEAN PLATELET VOLUME 9.2 fL (8.7-11.7); PLATELET CLUMPS FLAG 0 (0-99); PLATELET COUNT 319 10^3/uL (150-400); RED BLOOD CELL COUNT 4.37 10^6/uL (4.18-5.33); RED CELL DISTRIBUTION WIDTH 16.2 % (11.5-15.2)
[2016-10-21 08:47] LABS: ANION GAP 8 mEq/L (8-16); CALCIUM 9.5 mg/dL (8.5-10.4); CARBON DIOXIDE 28 mEq/l (22-31); CHLORIDE 106 mEq/L (97-110); CREATININE 0.8 mg/dL (0.6-1.0); GLOMERULAR FILTRATION RATE > 60; GLUCOSE 78 mg/dL (70-100); SODIUM 142 mEq/L (134-144)
[2016-10-21] MEDS ORDERED: fentaNYL 100 MCG/2 ML INJ IVP ONE ×2 (08:51→10:05)
[2016-10-21] MEDS ORDERED: fentaNYL 100 MCG/2 ML INJ ONE ×6 (08:53→16:51)
[2016-10-21] MEDS ORDERED: MIDAZOLAM 2 MG/2 ML VIAL ONE ×3 (10:55→15:27)
[2016-10-21] MEDS ORDERED: PROPOFOL 200 MG/20 ML VIAL ONE ×2 (11:19→12:13)
[2016-10-21] MEDS ORDERED: PHENYLEPHRINE HCL 100 MCG/ML SYR ONE (11:32)
[2016-10-21] MEDS ORDERED: ONDANSETRON 4 MG/2 ML VIAL ONE ×2 (11:40→14:15)
[2016-10-21] MEDS ORDERED: VANCOMYCIN HCL/NORMAL SALINE 250 ML IV ONE (12:30)
[2016-10-21 12:57] LABS: INR 1.02 (0.83-1.16); PROTIME(PATIENT) 13.3 SEC (12.0-15.0)
[2016-10-21 12:58] LABS: APTT 25.6 SEC (23.0-38.0)
[2016-10-21] MEDS ORDERED: BUPIVACAINE/EPI 0.5% 30 ML SDV ONE (14:06)
[2016-10-21] MEDS ORDERED: PROMETHAZINE HCL 25 MG SUPPR PR PRN (14:54)
[2016-10-21] MEDS ORDERED: DIPHENOXYLATE/ATROPINE LOMOTIL 1 TAB PO PRN (14:54)
[2016-10-21] MEDS ORDERED: METOCLOPRAMIDE 10 MG/2 ML VIAL IVP PRN (14:54)
[2016-10-21] MEDS ORDERED: MAGNESIUM HYDROXIDE 30 ML UDCUP PO PRN (14:54)
[2016-10-21] MEDS ORDERED: PHARMACY PAIN CONSULT 1 EA MISC PRN (14:54)
[2016-10-21] MEDS ORDERED: diphenhydrAMINE 25 MG CAP PO PRN (14:54)
[2016-10-21] MEDS ORDERED: BISACODYL 10 MG SUPP PR PRN (14:54)
[2016-10-21] MEDS ORDERED: ONDANSETRON DISINTEGRATING 4 MG TAB PO PRN (14:54)
[2016-10-21] MEDS ORDERED: TEMAZEPAM 15 MG CAP PO PRN (14:54)
[2016-10-21] MEDS ORDERED: POLYETHYLENE GLYCOL 3350 17 GM PKT PO PRN (14:54)
[2016-10-21] MEDS ORDERED: ONDANSETRON 4 MG/2 ML VIAL IVP PRN (14:54)
[2016-10-21] MEDS ORDERED: ALBUTEROL 3 ML DEYVIAL ONE (15:01)
--- NOTE | 2016-10-21 15:03 | POSTOPPROG ---
Post Op Note Date of Operation: 10/21/16 Surgeon: Otilio Ledesma Soaker Soda Worker: Kenzie Poole PA-C Anesthesiologist: Jose Martin Anesthesia: GET(General Endotracheal) Pre-op Diagnosis: Left hip dislocation Post-op Diagnosis: Left hip dislocation Indication: Left hip dislocation, unable to achieve closed reduction Procedure: Left hip arthroplasty revision Findings: See full dictation Inf/Abcess present in the surg proc area at time of surgery?: No Depth: Organ Space EBL: 50-100 Drains: Other
[2016-10-21] MEDS ORDERED: ESMOLOL HCL 100 MG/10 ML VIAL IV ONE (15:07)
--- NOTE | 2016-10-21 15:21 | GOP ---
[f rep st] OPERATIVE REPORT DATE OF OPERATION: 10/21/2016 SURGEON: Otilio Ledesma MD CIVIL ENGINEERING MANAGER: Kenzie Poole PA-C. ANESTHESIA: General. PREOPERATIVE DIAGNOSIS: Dislocation, left total hip arthroplasty. POSTOPERATIVE DIAGNOSIS: 1. Irreducible dislocation, left total hip arthroplasty. 2. Revision left total hip arthroplasty to constrained left total hip. PROCEDURE PERFORMED: FINDINGS: DESCRIPTION OF PROCEDURE: The patient was taken to the operative room, administered general anesthe siri, placed on the operative table. The FluoroScan was brought into position. Multiple attempts we re obtained to relocate the femoral head used in flexion, traction, subsequent extension, and warehouse foreman al rotation maneuvers. Although we could get the head to center, we never could get it to relocate. We felt there was something impinging within the head and the metal back cup. We, therefore, elec juan diego to proceed with an open treatment. The patient's left hip and lower extremity were prepped and draped in the normal sterile fashion. S he was placed in the right lateral decubitus position and had her lower extremity prepped and draped . The previous incision was utilized. The incision was carried through dermal subcutaneous tissues . A posterior lateral approach was obtained. We split the IT band and extended this proximally. T he femoral head was immediately visible. The gluteal fascia was divided proximally. Retractors wer e put in position. The head was removed from the trunnion using a bone tamp. The soft tissues were then exposed around the acetabulum. The acetabular border was cleared off using sharp and blunt di ssection. We subsequently noted that the cup was already loose. It was enfolded upon itself. A ph otograph was taken. This loose cup was then removed. The metal back shell was lined with a layer o f cement. This was removed using an osteotome and subsequently a bur. Thorough lavage was performe d with normal saline. We elected to cement in a constrained hip arthroplasty by Rory. The cup w as sized. A 48 diameter was felt to be appropriately sized to give us a cement mantle. The externa l border of the cup was slightly roughened up with a bur and a quarter-inch osteotome. The cement m ixing commenced. The liner was thoroughly dried. The liner had already been roughened up with a sp herical bur while removing the cement mantle. The cementing of the restrictive cup was then perform ed. The cement was allowed to cure. Excess cement was then removed. The trunnion was sized. A si ze 22 mm ball was then placed on the trunnion and impacted into position. It was felt to be very st able. The trunnion and ball component was then reduced into the constrained cup component. It lock ed in place. The hip was put through range of motion and felt to be stable. Thorough lavage was pe rformed with normal saline. A 3/16-inch drain was placed deeply. The iliotibial band and gluteal f ascia were reapproximated with a #1 Vicryl in a figure-eight fashion. The subcutaneous tissues were reapproximated with a 2-0 Vicryl in an interrupted buried fashion. The dermis was closed with stap les. A sterile compression was applied. An abduction pillow was utilized. The patient tolerated t he procedure well and was transferred back to the recovery room in stable condition. No operative c omplications. COMPLICATIONS: None. /[id number]/MODL
[2016-10-21] MEDS ORDERED: LORazepam 2 MG/ML INJ ONE (15:57)
[2016-10-21] MEDS ORDERED: LORazepam 2 MG/ML INJ IVP ONE (16:00)
[2016-10-21] MEDS ORDERED: HYDROmorphONE/DILAUDID 2 MG TAB PO PRN (16:07)
[2016-10-21] MEDS ORDERED: ALBUTEROL 200 PUFFS/18 GM MDI IH PRN (16:07)
[2016-10-21] MEDS ORDERED: PROMETHAZINE HCL 25 MG TAB PO PRN (16:07)
[2016-10-21] MEDS ORDERED: DICYCLOMINE 20 MG TAB PO PRN (16:07)
[2016-10-21] MEDS ORDERED: CALCIUM CARBONATE 500 MG CHEWABLE TAB PO PRN (16:07)
[2016-10-21] MEDS ORDERED: HYDROCORTISONE 100 MG/2 ML VIAL IVP ONE (16:10)
[2016-10-21] MEDS ORDERED: LORazepam 2 MG/ML INJ IVP PRN (16:11)
[2016-10-21] MEDS ORDERED: IOPAMIDOL (ISOVUE 370) 100 ML BTL IV ONE (16:17)
[2016-10-21] MEDS ORDERED: FUROSEMIDE 40 MG/4 ML VIAL IVP ONE (16:36)
[2016-10-21 17:02] LABS: COLOR YELLOW; LEUKOCYTE ESTERASE,URINE 3+ (NEGATIVE); NITRITE,URINE NEGATIVE (NEGATIVE)
[2016-10-21 17:08] LABS: BACTERIA TRACE /hpf (NONE SEEN); RBC,URINE 50-182 /hpf (0-3); WBC,URINE 50-182 /hpf (0-3)
[2016-10-21 17:09] LABS: MUCUS NONE SEEN /lpf (NONE-1+)
[2016-10-21 17:19] LABS: % IMMATURE GRANULYOCYTES 0.5 % (0.0-1.1); ABSOLUTE IMMATURE GRANULOCYTES 0.06 10^3/uL (0.00-0.10); ADD DIFF? NO; ADD MORPH? NO; ADD SCAN? NO; ATYPICAL LYMPHOCYTE FLAG 20 (0-99); FRAGMENT RBC FLAG 0 (0-99); HEMATOCRIT 39.8 % (38.0-47.0); HEMOGLOBIN 11.8 g/dL (12.6-16.3); LEFT SHIFT FLG 20 (0-99); LIPEMIA HEMOLYSIS FLAG 70 (0-99); MEAN CELL HEMOGLOBIN 26.6 pg (27.9-34.1); MEAN CELL HEMOGLOBIN CONCENTR. 29.6 g/dL (32.4-36.7); MEAN CELL VOLUME 89.8 fL (81.5-99.8); MEAN PLATELET VOLUME 9.2 fL (8.7-11.7); PLATELET CLUMPS FLAG 0 (0-99); PLATELET COUNT 324 10^3/uL (150-400); RED BLOOD CELL COUNT 4.43 10^6/uL (4.18-5.33); RED CELL DISTRIBUTION WIDTH 16.2 % (11.5-15.2)
[2016-10-21 17:31] LABS: APTT 24.1 SEC (23.0-38.0)
--- NOTE | 2016-10-21 17:31 | GHP ---
[f rep st] HISTORY AND PHYSICAL DATE OF ADMISSION: 10/21/2016 CHIEF COMPLAINT: Left hip pain. HISTORY: The patient is a 80-year-old female with recurrent left hip dislocations. She was hospital ized in May, and then again in September with hip dislocations that were subsequently reduced. Thi s morning she woke up with severe left leg pain and unable to ambulate. There was no known trauma. Reportedly this happened while she was sleeping. She presented to the emergency room and asked for a second opinion from Orthopedic Surgery, and so Dr. Ledesma, the on-call physician, brought her stra ight to the operating room. In the OR, they were unable to reduce her dislocation, and so a revisio n of her total hip arthroplasty was performed. I was subsequently called stat to the PACU postopera tively due to unstable status. Per PACU nursing and Anesthesia, when she came out of surgery she complained of severe shortness of breath and feeling very claustrophobic. She was started on BiPAP. There were no significant desatu rations noted on the monitor. She was very tachycardic. They gave her an albuterol neb in some Mario sed. 1600 cc of crystalloid were given during surgery. Her pacemaker was checked in PACU. She was shivering terribly. She subsequently spiked a fever to 38.5. The patient is not really able to gi ve any history and is quite out of it. PAST MEDICAL HISTORY: 1. COPD with chronic respiratory failure, 3 L. 2. Pacemaker secondary to complete heart block. 3. Chronic back pain due to compression fracture and spinal stenosis. 4. Peptic ulcer disease, status post perforation requiring a Eric patch. ADDITIONAL SURGICAL HISTORY: Bilateral total hip arthroplasties an appendectomy. MEDICATIONS: Please see computer record for full detailed list. ALLERGIES: Extensive, please refer to computerized record. SOCIAL HISTORY: She quit smoking 35 years ago. No alcohol. She lives alone in an apartment. REVIEW OF SYSTEMS: Unobtainable due to the patient's altered mental status. FAMILY HISTORY: Unobtainable due the patient's mental status. PHYSICAL EXAMINATION: GENERAL: This is an elderly, overweight female on BiPAP, not very responsive , tremoring, and looks uncomfortable. VITAL SIGNS: Initially when I saw her, her temperature was 3 6.9. She subsequently spiked a fever to 38.5. She is tachycardic, heart rate 110, blood pressure c urrently 130/62, satting in the 90s on her BiPAP. EYES: Normal conjunctiva. Pupils round, react t o light. ENT: Normal ears and nose. Unable to assess hearing. OROPHARYNX: Moist. NECK: Trache a midline. No thyromegaly. CHEST: Increased respiratory effort. LUNGS: Without wheeze, decrease d. CARDIOVASCULAR SYSTEM: Tachycardic. No murmur. No lower extremity edema. ABDOMEN: Soft, non tender. No hepatosplenomegaly. SKIN: Warm, dry, intact. No rash. MUSCULOSKELETAL: No cyanosis or clubbing. Strength appears to be 5/5 upper and lower extremities. Moving all extremities equall y. She is tremoring very visible in her upper extremities. NEURO: Unable to assess cranial nerves due to noncooperative. Unable to assess sensation. PSYCH: She is agitated, minimally responsive, although she did get some Versed due to severe feelings of claustrophobia and anxiety. Not able to participate much at this time, although unclear to what degree that is medically induced. LABORATORY DATA: White count 8.86, hematocrit 40, platelets 319, sodium 142, potassium 4.0, chlorid e 106, bicarb 28, BUN 20, creatinine 0.8, glucose 78. Hip x-ray in the ER shows a dislocated left total hip arthroplasty. Chest x-ray done stat at bedside, interpreted by me, shows possible early CHF, otherwise, unremarkab le. No obvious infiltrates. Telemetry was hard to interpret due to severe tremor. I was at bedside when the pacemaker was inter rogated. The pacemaker rep said her underlying rhythm was a sinus tachycardia. There was no AFib. ASSESSMENT/PLAN: 1. Acute respiratory failure after hip replacement. Now severely decompensated in the PACU. I paola l transfer her to ICU. Differential diagnosis is sepsis versus pulmonary embolus versus cardiac. W e will maintain on BiPAP. We will check an ABG. We will order a CT angiogram to rule out PE. She does have a shellfish allergy. However, that is not felt to be a contraindication to IV contrast an ymore. Given her fever, we will initiate a sepsis screen. Depending on result, may move forward [facility] sepsis protocol. We will check a lactate. 2. Fever. As above, we will rule out sepsis. Check blood cultures. Her urine is very cloudy. Th ere is a high suspicion for urinary tract infection. Once cultures are sent, I will start her empir ically on antibiotics. Her antibiotic allergy list is extensive. Her reported allergy to Keflex, h owever, is only stomach pain. So, I think she will be able tolerate cefepime. We will also do IV v ancomycin. 3. Recurrent hip dislocations. Status post failed reduction. Now status post revision of her tota l hip arthroplasty. Lovenox will be administered for DVT prophylaxis. 4. Chronic obstructive pulmonary disease with chronic respiratory failure. Her baseline is 3 L. I do not currently hear any wheezing. I do not think this is necessarily the cause of her respirator y failure. ABG will assess for CO2 retention. We will start her on scheduled nebulizers. She is o n chronic prednisone for unclear indication, although I suspect it is for her lungs. We will stress dose her steroids given her critical illness. 5. Pacemaker secondary to complete heart block. I was at bedside when the pacemaker reps arrived t o do the interrogation. Everything seemed okay from their standpoint. Her underlying rhythm is nor mal sinus rhythm. There was no atrial fibrillation. I think CHF and/or ID as a cause of her decomp ensation is less likely. We will check troponins and an echo. 6. Code status: Full, although this can be clarified when she wakes up, if she wakes up, and/or fa armando becomes available. 7. Admission status: She is critically ill, will clearly need a prolonged stay. We will admit to inpatient. 8. Deep vein thrombosis prophylaxis: She is high risk. We will prescribe subcu Lovenox. 9. Critical care time spent is 90 minutes. /[id number]/MODL
[2016-10-21 17:34] LABS: ANION GAP 8 mEq/L (8-16); BILIRUBIN,TOTAL 0.6 mg/dL (0.1-1.4); CALCIUM 8.9 mg/dL (8.5-10.4); CARBON DIOXIDE 27 mEq/l (22-31); CHLORIDE 104 mEq/L (97-110); CREATININE 0.7 mg/dL (0.6-1.0); GLOMERULAR FILTRATION RATE > 60; GLUCOSE 78 mg/dL (70-100); POTASSIUM 4.5 mEq/L (3.5-5.2); SODIUM 139 mEq/L (134-144)
[2016-10-21 17:38] LABS: INR 1.07 (0.83-1.16); PROTIME(PATIENT) 13.8 SEC (12.0-15.0)
[2016-10-21 17:44] LABS: TROPONIN I < 0.012 ng/mL (0-0.034)
[2016-10-21] MEDS: ACETAMINOPHEN 325 MG TAB PO SCH ×2 (18:32→20:12)
[2016-10-21] MEDS: OXYCODONE/APAP 5/325 TAB PO SCH ×2 (18:32→23:31)
[2016-10-21] MEDS: GABAPENTIN 300 MG CAP PO SCH ×2 (18:32→20:15)
[2016-10-21] MEDS: NS 1,000 ML IV SCH (18:37)
[2016-10-21] MEDS: CEFEPIME HCL 2 GM in D5W 100 ML IV SCH (19:37)
[2016-10-21] MEDS: oxyCODONE IR 5 MG TAB PO PRN (20:10)
[2016-10-21] MEDS: FAMOTIDINE 20 MG TAB PO SCH (20:15)
[2016-10-21] MEDS: IPRATROPIUM/ALBUTEROL 3 ML DEYVIAL IH SCH (20:57)
[2016-10-21] MEDS: FLUTICASONE/SALMETER 500/50MCG DISKUS IH SCH (20:59)
[2016-10-21] MEDS ORDERED: SENNOSIDES/DOCUSATE SODIUM TAB PO SCH (21:00)
[2016-10-21] MEDS: HYDROCORTISONE 100 MG/2 ML VIAL IVP SCH (21:07)
[2016-10-21] MEDS: diphenhydrAMINE 25 MG CAP PO SCH (21:48)
[2016-10-21] MEDS: SENNOSIDES 1 TAB PO SCH (21:48)
[2016-10-21] MEDS: NYSTATIN POWDER 15 GM BTL TP SCH (21:48)
[2016-10-21] MEDS: VANCOMYCIN HCL/NORMAL SALINE 250 ML IV SCH (23:35)
[2016-10-22] MEDS: IPRATROPIUM/ALBUTEROL 3 ML DEYVIAL IH SCH ×5 (01:09→20:45)
[2016-10-22] MEDS: CEFEPIME HCL 2 GM in D5W 100 ML IV SCH ×3 (02:18→17:29)
[2016-10-22] MEDS: NS 1,000 ML IV SCH (04:11)
[2016-10-22 04:12] LABS: % IMMATURE GRANULYOCYTES 0.4 % (0.0-1.1); ABSOLUTE IMMATURE GRANULOCYTES 0.05 10^3/uL (0.00-0.10); ADD DIFF? NO; ADD MORPH? NO; ADD SCAN? NO; ATYPICAL LYMPHOCYTE FLAG 0 (0-99); FRAGMENT RBC FLAG 0 (0-99); HEMATOCRIT 32.4 % (38.0-47.0); HEMOGLOBIN 9.5 g/dL (12.6-16.3); LEFT SHIFT FLG 50 (0-99); LIPEMIA HEMOLYSIS FLAG 70 (0-99); MEAN CELL HEMOGLOBIN 27.1 pg (27.9-34.1); MEAN CELL HEMOGLOBIN CONCENTR. 29.3 g/dL (32.4-36.7); MEAN CELL VOLUME 92.3 fL (81.5-99.8); PLATELET CLUMPS FLAG 0 (0-99); PLATELET COUNT 249 10^3/uL (150-400); RED BLOOD CELL COUNT 3.51 10^6/uL (4.18-5.33)
[2016-10-22 04:33] LABS: ANION GAP 5 mEq/L (8-16); CALCIUM 7.9 mg/dL (8.5-10.4); CARBON DIOXIDE 26 mEq/l (22-31); CHLORIDE 107 mEq/L (97-110); CREATININE 0.6 mg/dL (0.6-1.0); GLOMERULAR FILTRATION RATE > 60; GLUCOSE 124 mg/dL (70-100); POTASSIUM 4.1 mEq/L (3.5-5.2); SODIUM 138 mEq/L (134-144)
[2016-10-22] MEDS: HYDROCORTISONE 100 MG/2 ML VIAL IVP SCH ×2 (05:57→15:27)
[2016-10-22] MEDS ORDERED: LEVOTHYROXINE 50 MCG TAB PO SCH ×2 (06:00→16:12)
[2016-10-22] MEDS: ACETAMINOPHEN 325 MG TAB PO SCH ×2 (06:03→14:47)
[2016-10-22] MEDS: OXYCODONE/APAP 5/325 TAB PO SCH ×4 (06:03→17:28)
--- NOTE | 2016-10-22 08:18 | SOAPPROG ---
SOAP Progress Note Assessment/Plan: Assessment: Post op hypoxia improving. Possible fluid overload UTI with pending cultures Likely pulmonary and urinary causes of fever post op hip films look good Plan: Mobilize to chair. Can get up with walker, WBTT Check cultures. Continue antibiotics emperically Careful of fluid overload 10/22/16 08:14 Subjective: S: Pain improved Objective: Vital Signs Temp Pulse Resp BP Pulse Ox 37.6 C 86 16 104/43 L 98 10/21/16 21:51 10/22/16 07:00 10/22/16 07:00 10/22/16 07:00 10/22/16 07:00 Laboratory Results 10/22/16 04:05 10/22/16 04:05 10/21/16 10/22/16 10/23/16 05:59 05:59 05:59 Intake Total 3600 Output Total 1645 Balance 1955 PT 13.8 SEC (12.0-15.0) 10/21/16 17:00 INR 1.07 (0.83-1.16) 10/21/16 17:00 CSMT ok Leg mildly swollen as expected No calf pain ICD10 Worksheet Patient Problems: Problems Problem Status Onset Hip dislocation, left Acute Back pain Acute Chest discomfort Acute Chronic left hip pain Acute Complete heart block Acute Dyspnea Acute Dyspnea Acute Gastric ulcer with perforation Acute Generalized weakness Acute Hypoxemia Acute Osteoporosis Acute S/P hip replacement Acute Syncope Acute
[2016-10-22] MEDS: PANTOPRAZOLE SODIUM 40 MG TAB PO SCH (08:55)
[2016-10-22] MEDS: ENOXAPARIN 40 MG/0.4 ML SYR SC SCH (08:55)
[2016-10-22] MEDS: GABAPENTIN 300 MG CAP PO SCH ×3 (08:56→21:07)
[2016-10-22] MEDS: FAMOTIDINE 20 MG TAB PO SCH ×2 (08:56→21:08)
[2016-10-22] MEDS: buPROPion XL 150 MG TAB PO SCH (08:56)
[2016-10-22] MEDS: FUROSEMIDE 40 MG/4 ML VIAL IVP SCH ×2 (08:59→15:27)
[2016-10-22] MEDS: FLUTICASONE/SALMETER 500/50MCG DISKUS IH SCH ×2 (11:16→20:46)
--- NOTE | 2016-10-22 11:42 | GCON ---
[f rep st] CONSULTATION [employer] CONSULTATION REASON FOR ADMISSION: Hip pain and recurrent left hip dislocations. The patient is a 80-year-old white female with a past medical history of recurrent left hip dislocations. She suffered another hip dislocation. Presented in the emergency room. Was seen by Orthopedic Surgery. She went to the operating room to reduce her dislocation, and did a revision of the total hip arthroplasty. In the PACU she was more breathless and was begun on BiPAP. Was subsequently transferred to the intensive care unit for further care. Currently, she is resting comfortably. Echocardiogram has been performed. The patient is complaining of some knee pain, and her hip pain is fairly well controlled. There was no chest pain, pleuritic-type chest pain, or angina equivalent. No fever, no night sweats. PAST MEDICAL HISTORY: Significant for chronic obstructive pulmonary disease, chronic respiratory failure, pacemaker placement, chronic back pain, peptic ulcer disease. ALLERGIES: Celebrex, duloxetine, levofloxacin, and Bactrim. SOCIAL HISTORY: 35 pack year smoker, none for many years. No significant alcohol use. She lives alone in her apartment. PHYSICAL EXAM: VITAL SIGNS: Blood pressure is 120/46, pulse 82, respirations 18, temperature 36.7, oxygen saturation 96% on 6 L. GENERAL: She is a moderately overweight elderly white female who is resting comfortably on nasal cannula oxygen. HEENT: Eyes GARCIA, EOMI. Throat shows no erythema or tonsillar hypertrophy. NECK: Supple. There is no cervical adenopathy. HEART : Regular rate and rhythm with a 2/6 systolic murmur left sternal border without radiation. LUNGS: Diminished breath sounds with significant prolongation expiratory phase but there is no wheeze. ABDOMEN: Soft, nontender. Bowel sounds are present in all 4 quadrants. EXTREMITIES: No clubbing, cyanosis, but trace lower extremity edema. LABORATORIES: White count 12.6, hemoglobin 9.4, hematocrit 32, platelet count is 249. Sodium 138, potassium 4.1, chloride 107, CO2 is 26, BUN 15, creatinine 0.6, glucose is 124. Urinalysis: pH is 5, specific gravity 1.010, WBCs and RBCs. Trace bacteria. IMPRESSION: 1. Status post reduction of her left hip dislocation and revision of total left hip arthroplasty. 2. Respiratory failure. This is improved. 3. History of chronic respiratory failure on supplemental oxygen at 3 L at home. 4. Chronic obstructive pulmonary disease. 5. Chronic back pain. 6. Peptic ulcer disease. RECOMMENDATIONS: 1. Frequent nebulizer treatment with both albuterol and Atrovent. 2. Adequate pain control. 3. DVT and PE prophylaxis. 4. Stress ulcer prophylaxis. 5. Wean FiO2 as tolerated. 6. Await results of echocardiogram. /[id number]/MODL MTDD
--- NOTE | 2016-10-22 11:46 | SOAPPROG ---
SOAP Progress Note Assessment/Plan: Assessment: Plan: Objective: Vital Signs Temp Pulse Resp BP Pulse Ox 36.7 C 82 12 120/46 L 96 10/22/16 08:00 10/22/16 11:21 10/22/16 11:21 10/22/16 09:00 10/22/16 11:21 Laboratory Results 10/22/16 04:05 10/22/16 04:05 10/21/16 10/22/16 10/23/16 05:59 05:59 05:59 Intake Total 3600 Output Total 1645 Balance 1955 PT 13.8 SEC (12.0-15.0) 10/21/16 17:00 INR 1.07 (0.83-1.16) 10/21/16 17:00 ICD10 Worksheet Patient Problems: Problems Problem Status Onset Hip dislocation, left Acute Back pain Acute Chest discomfort Acute Chronic left hip pain Acute Complete heart block Acute Dyspnea Acute Dyspnea Acute Gastric ulcer with perforation Acute Generalized weakness Acute Hypoxemia Acute Osteoporosis Acute S/P hip replacement Acute Syncope Acute
[2016-10-22] MEDS: NYSTATIN POWDER 15 GM BTL TP SCH (12:47)
[2016-10-22] MEDS: VANCOMYCIN HCL/NORMAL SALINE 250 ML IV SCH (12:48)
[2016-10-22] MEDS: traMADol 50 MG TAB PO PRN ×2 (12:48→19:52)
--- NOTE | 2016-10-22 14:38 | ECHO ---
[id number] + + [address] : : [place] [address] : : [phone] + + Adult Echocardiographic Report + ---+ :Name: Jonas ARAUJO Date: 10/22/2016 10:25 AM BP: 125/58 mmHg : : Hospital Admission Number: [id number] Location: 253: :: 1935 Gender: Female Height: 64 in : :Age: 80 yrs Race: WH Weight: 170 lb : :Reason For Study: CHF : : BSA: 1.8 meters2 : :History: post op surgery : + ---+ MMode/2D Measurements \T\ Calculations IVSd: 1.1 cm RVDd: 2.9 cm FS: 27.6 % Ao root diam: LVPWd: 1.1 cm LVIDd: 4.7 cm EDV(Teich): 3.3 cm LVIDs: 3.4 cm 102.3 ml ESV(Teich): 47.5 ml EF(Teich): 53.6 % LVOT diam: 1.8 cm LVLd ap4: 7.4 cm SV(MOD-sp4): LVOT area: EDV(MOD-sp4): 51.0 ml 2.4 cm2 83.0 ml LVLs ap4: 6.7 cm ESV(MOD-sp4): 32.0 ml EF(MOD-sp4): 61.4 % Normal Measurement Values: + + :LVIDd (3.5-5.7cm) IVSd (0.6-1.1cm) LVPWd (0.6-1.1cm) Aortic Root (2.0-3.7cm)Left Atrium (1.5-4.0cm): :LV Vol(d) (76-115ml) LV Vol(s) (29-48ml) Ejec Fraction (50-65%)PV Liban (0.6- 1.2m/s) TV Liban (0.4-1.0m/s) : :MV E Liban (0.8-1.0m/s)MV A Liban (0.3-1.0m/s)LVOT Liban (0.7-1.2m/s) Asc Ao Liban ( 0.9-1.8m/s) : + + Doppler Measurements \T\ Calculations MV E max liban: Ao V2 max: LV V1 max: PA V2 max: 50.3 cm/sec 173.4 cm/sec 117.0 cm/sec 108.6 cm/sec MV A max liban: Ao max PG: LV V1 max PG: PA max P.7 cm/sec 12.0 mmHg 5.5 mmHg 4.7 mmHg MV E/A: 0.50 RESHMA(V,D): 1.6 cm2 MV dec time: 0.19 sec PI end-d liban: TR max liban: 50.0 cm/sec 272.8 cm/sec TR max P.8 mmHg RAP systole: 5.0 mmHg RVSP(TR): 34.8 mmHg Left Ventricle The left ventricle is normal in size and function. There is mild concentric left ventricular hypertrophy. Ejection Fraction = 55-60%. There is Doppler evidence for diastolic dysfunction. No regional wall motion abnormalities noted. Right Ventricle The right ventricle is normal in size and function. There is a pacemaker lead in the right ventricle. Atria The left atrium is mildly dilated. The Left Atrial Volume is 35 ml/m2. Right atrial size is normal. Mitral Valve The mitral valve leaflets appear thickened, but open well. There is no mitral valve stenosis. There is mild to moderate mitral regurgitation. Tricuspid Valve The tricuspid valve is normal in structure and function. There is no tricuspid stenosis. There is mild tricuspid regurgitation. Right ventricular systolic pressure is 35mmHg. Aortic Valve The aortic valve is trileaflet. There is mild aortic valve calcification. There is no aortic stenosis. Trace aortic regurgitation. Pulmonic Valve The pulmonic valve is not well visualized. Mild pulmonic valvular regurgitation. Great Vessels The aortic root is normal size. Pericardium/Pleural Small pericardial effusion. Conclusion A two-dimensional transthoracic echocardiogram with M-mode and Doppler was performed. The left ventricle is normal in size and function. There is mild concentric left ventricular hypertrophy. Ejection Fraction = 55-60%. There is Doppler evidence for diastolic dysfunction. The left atrium is mildly dilated. The Left Atrial Volume is 35 ml/m2. There is mild to moderate mitral regurgitation. There is mild tricuspid regurgitation. Right ventricular systolic pressure is 35mmHg. Trace aortic regurgitation. Mild pulmonic valvular regurgitation. Small pericardial effusion. No tamponade Overall similar compared with 08/12/2016 Final Reading Physician: Dr Marquita Bustillos electronically signed on 10/22/2016 02:37 PM Ordering Physician: Livia Mullen Performed By: Maria Victoria Vanegas
--- NOTE | 2016-10-22 16:17 | HOSPPROG ---
Hospitalist Progress Note Assessment/Plan: * Recurrent hip dislocations s/p BROOKS revision -Lovenox * Acute on chronic respiratory failure - improved * COPD 3l baseline * Severe sepsis - suspect due to UTI -empiric Cefepime, IV Vanco pending culture * Possible CHF s/p lasix -ECHO pending (but normal BNP argues against CHF) * Chronic steroid s/p stress dose -back to usual PO prednisone * PCM s/p CHB -interrogation okay * Low TSH -reduce Synthroid Subjective: Waking up, no complaints. Objective: Vital Signs Temp Pulse Resp BP Pulse Ox 36.7 C 80 16 122/48 H 97 10/22/16 08:00 10/22/16 14:00 10/22/16 14:00 10/22/16 14:00 10/22/16 14:00 Laboratory Results 10/22/16 04:05 10/22/16 04:05 10/21/16 10/22/16 10/23/16 05:59 05:59 05:59 Intake Total 3600 Output Total 1645 1550 Balance 1955 -1550 PT 13.8 SEC (12.0-15.0) 10/21/16 17:00 INR 1.07 (0.83-1.16) 10/21/16 17:00 CTA - no PE tele reviewed - paced rhythm - Physical Exam Constitutional: no apparent distress, appears nourished, not in pain Cardiovascular: regular rate and rhythym, no murmur, rub, or gallop Respiratory: no respiratory distress, no rales or rhonchi, clear to auscultation Gastrointestinal: normoactive bowel sounds, soft, non-tender abdomen, no palpable masses Skin: no rashes or abrasions, no fluctuance, no induration Neurologic: AAOx3, sensation intact bilaterally Psychiatric: interacting appropriately, not anxious, not encephalopathic, thought process linear ICD10 Worksheet Patient Problems: Problems Problem Status Onset Hip dislocation, left Acute Back pain Acute Chest discomfort Acute Chronic left hip pain Acute Complete heart block Acute Dyspnea Acute Dyspnea Acute Gastric ulcer with perforation Acute Generalized weakness Acute Hypoxemia Acute Osteoporosis Acute S/P hip replacement Acute Syncope Acute
[2016-10-22] MEDS: predniSONE 5 MG TAB PO SCH (16:31)
[2016-10-22] MEDS: SENNOSIDES 1 TAB PO SCH (21:07)
[2016-10-22] MEDS: diphenhydrAMINE 25 MG CAP PO SCH (21:08)
[2016-10-23] MEDS: NYSTATIN POWDER 15 GM BTL TP SCH ×3 (00:17→22:44)
[2016-10-23] MEDS: CEFEPIME HCL 2 GM in D5W 100 ML IV SCH ×2 (02:30→12:21)
[2016-10-23] MEDS: VANCOMYCIN HCL/NORMAL SALINE 250 ML IV SCH (04:00)
[2016-10-23 04:10] LABS: % IMMATURE GRANULYOCYTES 0.4 % (0.0-1.1); ABSOLUTE IMMATURE GRANULOCYTES 0.05 10^3/uL (0.00-0.10); ADD DIFF? NO; ADD MORPH? NO; ADD SCAN? NO; ATYPICAL LYMPHOCYTE FLAG 20 (0-99); FRAGMENT RBC FLAG 0 (0-99); HEMATOCRIT 29.5 % (38.0-47.0); HEMOGLOBIN 8.9 g/dL (12.6-16.3); LEFT SHIFT FLG 0 (0-99); LIPEMIA HEMOLYSIS FLAG 80 (0-99); MEAN CELL HEMOGLOBIN 27.2 pg (27.9-34.1); MEAN CELL HEMOGLOBIN CONCENTR. 30.2 g/dL (32.4-36.7); MEAN CELL VOLUME 90.2 fL (81.5-99.8); MEAN PLATELET VOLUME 9.3 fL (8.7-11.7); PLATELET CLUMPS FLAG 0 (0-99); PLATELET COUNT 261 10^3/uL (150-400); RED BLOOD CELL COUNT 3.27 10^6/uL (4.18-5.33); RED CELL DISTRIBUTION WIDTH 15.8 % (11.5-15.2)
[2016-10-23] MEDS: OXYCODONE/APAP 5/325 TAB PO SCH ×6 (04:30→21:37)
[2016-10-23] MEDS: LEVOTHYROXINE 25 MCG TAB PO SCH (04:33)
[2016-10-23 04:42] LABS: ANION GAP 4 mEq/L (8-16); CALCIUM 8.3 mg/dL (8.5-10.4); CARBON DIOXIDE 31 mEq/l (22-31); CHLORIDE 101 mEq/L (97-110); CREATININE 0.6 mg/dL (0.6-1.0); GLOMERULAR FILTRATION RATE > 60; GLUCOSE 124 mg/dL (70-100); POTASSIUM 3.3 mEq/L (3.5-5.2); SODIUM 136 mEq/L (134-144)
[2016-10-23] MEDS: IPRATROPIUM/ALBUTEROL 3 ML DEYVIAL IH SCH ×3 (04:57→16:29)
[2016-10-23] MEDS: ENOXAPARIN 40 MG/0.4 ML SYR SC SCH (08:20)
[2016-10-23] MEDS: buPROPion XL 150 MG TAB PO SCH (08:20)
[2016-10-23] MEDS: PANTOPRAZOLE SODIUM 40 MG TAB PO SCH (08:21)
[2016-10-23] MEDS: GABAPENTIN 300 MG CAP PO SCH ×3 (08:21→21:37)
[2016-10-23] MEDS: FAMOTIDINE 20 MG TAB PO SCH ×2 (08:22→21:37)
[2016-10-23] MEDS: predniSONE 5 MG TAB PO SCH (08:22)
[2016-10-23] MEDS: FLUTICASONE/SALMETER 500/50MCG DISKUS IH SCH (08:26)
[2016-10-23] MEDS: CYCLOBENZAPRINE 10 MG TAB PO PRN (08:31)
[2016-10-23] MEDS ORDERED: PROTOCOL POTASSIUM 1 DOSE MISC PRN (08:51)
[2016-10-23] MEDS ORDERED: POTASSIUM CL 10 MEQ TAB PO ONE ×2 (09:32→10:00)
--- NOTE | 2016-10-23 14:30 | SOAPPROG ---
SOAP Progress Note Assessment/Plan: Assessment/Plan: L hip arthroplasty revision POD#2 - Continue pain management - Continue PT/OT - Continue hip precautions - Progress to WBAT with walker - Continue Lovenox for VTE chemoprophylaxis - SCDs/TEDs for mechanical prophylaxis - Consider discharge to rehab - Antibiotics for UTI - Dressing change today - Discontinue drain 10/23/16 14:27 10/23/16 14:30 Subjective: Pt states she is feeling well and pain in the L hip is well controlled. She is ambulating well with a walker. Pt denies fever, chills, chest pain, SOB, abdominal pain, N/V/D, numbness, tingling, weakness, and calf pain Objective: Vital Signs Temp Pulse Resp BP Pulse Ox 36.8 C 67 16 112/65 96 10/23/16 00:00 10/23/16 12:00 10/23/16 12:00 10/23/16 12:00 10/23/16 12:00 Microbiology 10/21/16 17:03 Urine Culture - Final Urine,Clean Catch Escherichia Coli Aerococcus Urinae Laboratory Results 10/23/16 04:00 10/23/16 04:00 10/22/16 10/23/16 10/24/16 05:59 05:59 05:59 Intake Total 3600 2200 Output Total 1645 2865 570 Balance 1955 -665 -570 PT 13.8 SEC (12.0-15.0) 10/21/16 17:00 INR 1.07 (0.83-1.16) 10/21/16 17:00 Physical Exam - Physical Exam General Appearance: alert, no apparent distress Peripheral Pulses: 2+: dorsalis-pedis (R), dorsalis-pedis (L) Skin: normal color, warm/dry, other (Incision site c/d/i; drain in place) Extremities: normal inspection, normal capillary refill, No pedal edema, No calf tenderness, No swelling, No Justin's sign Neuro/Psych: no motor/sensory deficits, alert, normal mood/affect ICD10 Worksheet Patient Problems: Problems Problem Status Onset Hip dislocation, left Acute Back pain Acute Chest discomfort Acute Chronic left hip pain Acute Complete heart block Acute Dyspnea Acute Dyspnea Acute Gastric ulcer with perforation Acute Generalized weakness Acute Hypoxemia Acute Osteoporosis Acute S/P hip replacement Acute Syncope Acute
--- NOTE | 2016-10-23 14:32 | HOSPPROG ---
Hospitalist Progress Note Assessment/Plan: * Recurrent hip dislocations s/p BROOKS revision -Lovenox * Acute on chronic respiratory failure - improved -s/p BIPAP * COPD 3l baseline * Severe sepsis - suspect due to UTI -Ecoli - change to PO Keflex * Chronic steroid s/p stress dose -back to usual PO prednisone * PCM s/p CHB -interrogation okay * Low TSH -reduce Synthroid Subjective: Feeling good, no complaints. Objective: Vital Signs Temp Pulse Resp BP Pulse Ox 36.8 C 67 16 112/65 96 10/23/16 00:00 10/23/16 12:00 10/23/16 12:00 10/23/16 12:00 10/23/16 12:00 Microbiology 10/21/16 17:03 Urine Culture - Final Urine,Clean Catch Escherichia Coli Aerococcus Urinae Laboratory Results 10/23/16 04:00 10/23/16 04:00 10/22/16 10/23/16 10/24/16 05:59 05:59 05:59 Intake Total 3600 2200 Output Total 1645 2865 570 Balance 1955 -665 -570 PT 13.8 SEC (12.0-15.0) 10/21/16 17:00 INR 1.07 (0.83-1.16) 10/21/16 17:00 ECHO - normal EF d/w Dr. Robert - stable for floor - Physical Exam Constitutional: no apparent distress, appears nourished, not in pain Cardiovascular: regular rate and rhythym, no murmur, rub, or gallop Respiratory: no respiratory distress, no rales or rhonchi, clear to auscultation Gastrointestinal: normoactive bowel sounds, soft, non-tender abdomen, no palpable masses Skin: no rashes or abrasions, no fluctuance, no induration Neurologic: AAOx3, sensation intact bilaterally Psychiatric: interacting appropriately, not anxious, not encephalopathic, thought process linear ICD10 Worksheet Patient Problems: Problems Problem Status Onset Hip dislocation, left Acute Back pain Acute Chest discomfort Acute Chronic left hip pain Acute Complete heart block Acute Dyspnea Acute Dyspnea Acute Gastric ulcer with perforation Acute Generalized weakness Acute Hypoxemia Acute Osteoporosis Acute S/P hip replacement Acute Syncope Acute
[2016-10-23] MEDS ORDERED: VANCOMYCIN HCL/NORMAL SALINE 250 ML IV SCH (16:00)
[2016-10-23] MEDS: CEPHALEXIN 500 MG CAP PO SCH (17:38)
[2016-10-23 18:39] LABS: POTASSIUM 4.3 mEq/L (3.5-5.2)
[2016-10-23] MEDS ORDERED: FLUTICASONE/SALMETER 250/50MCG DISKUS IH SCH (21:00)
[2016-10-23] MEDS: FLUTICASONE/SALMETER 250/50MCG DISKUS IH SCH (21:21)
[2016-10-23] MEDS: SENNOSIDES 1 TAB PO SCH (21:37)
[2016-10-23] MEDS: diphenhydrAMINE 25 MG CAP PO SCH (21:38)
[2016-10-23] MEDS: HYDROCODONE/HOMATROPINE HYCODAN 5 ML UDL PO PRN (21:39)
[2016-10-24] MEDS: IPRATROPIUM/ALBUTEROL 3 ML DEYVIAL IH SCH ×4 (00:10→15:53)
[2016-10-24] MEDS: CEPHALEXIN 500 MG CAP PO SCH ×5 (00:55→23:15)
[2016-10-24] MEDS: LEVOTHYROXINE 25 MCG TAB PO SCH (04:42)
[2016-10-24] MEDS: OXYCODONE/APAP 5/325 TAB PO SCH ×5 (04:42→21:50)
[2016-10-24 05:18] LABS: % IMMATURE GRANULYOCYTES 0.5 % (0.0-1.1); ABSOLUTE IMMATURE GRANULOCYTES 0.04 10^3/uL (0.00-0.10); ADD DIFF? NO; ADD MORPH? NO; ADD SCAN? NO; ATYPICAL LYMPHOCYTE FLAG 30 (0-99); FRAGMENT RBC FLAG 10 (0-99); HEMATOCRIT 28.9 % (38.0-47.0); HEMOGLOBIN 8.5 g/dL (12.6-16.3); LEFT SHIFT FLG 10 (0-99); LIPEMIA HEMOLYSIS FLAG 70 (0-99); MEAN CELL HEMOGLOBIN CONCENTR. 29.4 g/dL (32.4-36.7); MEAN CELL VOLUME 91.7 fL (81.5-99.8); MEAN PLATELET VOLUME 9.8 fL (8.7-11.7); PLATELET CLUMPS FLAG 0 (0-99); PLATELET COUNT 287 10^3/uL (150-400); RED BLOOD CELL COUNT 3.15 10^6/uL (4.18-5.33); RED CELL DISTRIBUTION WIDTH 16.1 % (11.5-15.2)
[2016-10-24 05:42] LABS: ANION GAP 3 mEq/L (8-16); CALCIUM 8.5 mg/dL (8.5-10.4); CARBON DIOXIDE 31 mEq/l (22-31); CHLORIDE 105 mEq/L (97-110); CREATININE 0.6 mg/dL (0.6-1.0); GLOMERULAR FILTRATION RATE > 60; GLUCOSE 73 mg/dL (70-100); POTASSIUM 3.9 mEq/L (3.5-5.2); SODIUM 139 mEq/L (134-144)
[2016-10-24] MEDS: GABAPENTIN 300 MG CAP PO SCH ×3 (08:30→20:36)
[2016-10-24] MEDS: PANTOPRAZOLE SODIUM 40 MG TAB PO SCH (08:35)
[2016-10-24] MEDS: predniSONE 5 MG TAB PO SCH (08:35)
[2016-10-24] MEDS: FAMOTIDINE 20 MG TAB PO SCH ×2 (08:36→20:36)
[2016-10-24] MEDS: oxyCODONE IR 5 MG TAB PO PRN (08:36)
[2016-10-24] MEDS: ENOXAPARIN 40 MG/0.4 ML SYR SC SCH (08:42)
--- NOTE | 2016-10-24 09:23 | SOAPPROG ---
SOAP Progress Note Assessment/Plan: Assessment/Plan: L hip arthroplasty revision POD#3 - Continue pain management - Continue PT/OT - Continue hip precautions - Progress to WBAT with walker - Continue Lovenox for VTE chemoprophylaxis - SCDs/TEDs for mechanical prophylaxis - Consider discharge to rehab - Antibiotics for UTI 10/23/16 14:27 10/23/16 14:30 10/24/16 09:13 Subjective: Pt states she is doing well and pain is being well-controlled. Pt states she was able to ambulate easier yesterday with the walker. Pt denies fever, chills, chest pain, SOB, abdominal pain, N/V/D, numbness, tingling, and calf pain. Objective: Vital Signs Temp Pulse Resp BP Pulse Ox 36.9 C 84 18 125/64 H 90 L 10/24/16 08:00 10/24/16 08:00 10/24/16 08:00 10/24/16 08:00 10/24/16 08:00 Microbiology 10/21/16 17:03 Urine Culture - Final Urine,Clean Catch Escherichia Coli Aerococcus Urinae Laboratory Results 10/24/16 04:30 10/24/16 04:30 10/23/16 10/24/16 10/25/16 05:59 05:59 05:59 Intake Total 2200 850 Output Total 2865 1320 Balance -665 -470 PT 13.8 SEC (12.0-15.0) 10/21/16 17:00 INR 1.07 (0.83-1.16) 10/21/16 17:00 Physical Exam - Physical Exam General Appearance: alert, no apparent distress Peripheral Pulses: 2+: dorsalis-pedis (R), dorsalis-pedis (L) Skin: normal color, warm/dry, other (incision site c/d/i) Extremities: normal inspection, normal capillary refill, No pedal edema, No calf tenderness, No swelling, No Justin's sign Neuro/Psych: no motor/sensory deficits, alert, normal mood/affect ICD10 Worksheet Patient Problems: Problems Problem Status Onset Hip dislocation, left Acute Back pain Acute Chest discomfort Acute Chronic left hip pain Acute Complete heart block Acute Dyspnea Acute Dyspnea Acute Gastric ulcer with perforation Acute Generalized weakness Acute Hypoxemia Acute Osteoporosis Acute S/P hip replacement Acute Syncope Acute
[2016-10-24] MEDS: FLUTICASONE/SALMETER 250/50MCG DISKUS IH SCH ×2 (09:41→23:13)
[2016-10-24] MEDS: HYDROCODONE/HOMATROPINE HYCODAN 5 ML UDL PO PRN (10:23)
[2016-10-24] MEDS: buPROPion XL 150 MG TAB PO SCH (10:27)
[2016-10-24] MEDS: NYSTATIN POWDER 15 GM BTL TP SCH ×2 (10:28→20:35)
--- NOTE | 2016-10-24 16:35 | HOSPPROG ---
Hospitalist Progress Note Assessment/Plan: * Recurrent hip dislocations s/p BROOKS revision -Lovenox * Acute on chronic respiratory failure - improved -s/p BIPAP * COPD 3l baseline * Severe sepsis - suspect due to UTI -Ecoli - change to PO Keflex * Chronic steroid s/p stress dose -back to usual PO prednisone * PCM s/p CHB -interrogation okay * Low TSH -reduce Synthroid Dispo - no decision regarding SNF today - DC in am Subjective: Wanted to go home but convinced to go to SNF for safety. She will pick facility in am. Objective: Vital Signs Temp Pulse Resp BP Pulse Ox 37.5 C 97 18 134/73 H 92 10/24/16 16:00 10/24/16 16:00 10/24/16 16:00 10/24/16 16:00 10/24/16 16:00 Microbiology 10/21/16 17:03 Urine Culture - Final Urine,Clean Catch Escherichia Coli Aerococcus Urinae Laboratory Results 10/24/16 04:30 10/24/16 04:30 10/23/16 10/24/16 10/25/16 05:59 05:59 05:59 Intake Total 2200 850 Output Total 2865 1320 400 Balance -665 -470 -400 PT 13.8 SEC (12.0-15.0) 10/21/16 17:00 INR 1.07 (0.83-1.16) 10/21/16 17:00 - Physical Exam Constitutional: no apparent distress, appears nourished, not in pain Cardiovascular: regular rate and rhythym, no murmur, rub, or gallop Respiratory: no respiratory distress, no rales or rhonchi, clear to auscultation Gastrointestinal: normoactive bowel sounds, soft, non-tender abdomen, no palpable masses Skin: no rashes or abrasions, no fluctuance, no induration Neurologic: AAOx3, sensation intact bilaterally Psychiatric: interacting appropriately, not anxious, not encephalopathic, thought process linear ICD10 Worksheet Patient Problems: Problems Problem Status Onset Hip dislocation, left Acute Back pain Acute Chest discomfort Acute Chronic left hip pain Acute Complete heart block Acute Dyspnea Acute Dyspnea Acute Gastric ulcer with perforation Acute Generalized weakness Acute Hypoxemia Acute Osteoporosis Acute S/P hip replacement Acute Syncope Acute
[2016-10-24] MEDS: BENZONATATE 100 MG CAP PO PRN (17:58)
[2016-10-24] MEDS: SENNOSIDES 1 TAB PO SCH (20:36)
[2016-10-24] MEDS: diphenhydrAMINE 25 MG CAP PO SCH (21:51)
[2016-10-24] MEDS: traMADol 50 MG TAB PO PRN (23:15)
[2016-10-25] MEDS: IPRATROPIUM/ALBUTEROL 3 ML DEYVIAL IH SCH ×4 (01:15→16:03)
[2016-10-25] MEDS: BENZONATATE 100 MG CAP PO PRN ×3 (02:14→20:11)
[2016-10-25] MEDS: OXYCODONE/APAP 5/325 TAB PO SCH ×5 (05:36→21:57)
[2016-10-25] MEDS: LEVOTHYROXINE 25 MCG TAB PO SCH (05:36)
[2016-10-25] MEDS: CEPHALEXIN 500 MG CAP PO SCH ×4 (05:36→23:37)
--- NOTE | 2016-10-25 09:10 | SOAPPROG ---
SOAP Progress Note Assessment/Plan: Assessmen/Plan: Assessment/Plan: Assessment/Plan: L hip arthroplasty revision performed by Dr. Ledesma, POD#4 - Cont current PO pain management - Cont PT/OT - Cont hip precautions - Progress to WBAT with walker - Cont Lovenox for VTE chemoprophylaxis - SCDs/TEDs for mechanical prophylaxis - Antibiotics for UTI, PO Keflex per hospitalist service - Cleared to d/c to rehab from ortho standpoint 10/25/16 09:18 Subjective: Pt seen at bedside. No complaints of significant pain today. Pt is tolerating her diet and medications well. She does note that she is a bit "weak" still. She does note some continued concerns about being discharged to a rehab facility , as she has had previously poor experiences at [facility] [place]. She does note that she had a more pleasant experience with [facility], and is possibly open to trying either [facility] or [facility] rehab. We have discussed the need for this type of care for her recovery. She has no additional concerns or complaints at this time. Objective: Vital Signs Temp Pulse Resp BP Pulse Ox 36.6 C 89 16 145/80 H 92 10/25/16 08:00 10/25/16 08:00 10/25/16 08:00 10/25/16 08:00 10/25/16 08:00 Laboratory Results 10/24/16 04:30 10/24/16 04:30 10/24/16 10/25/16 10/26/16 05:59 05:59 05:59 Intake Total 850 300 Output Total 1320 700 Balance -470 -400 PT 13.8 SEC (12.0-15.0) 10/21/16 17:00 INR 1.07 (0.83-1.16) 10/21/16 17:00 Pt seen at bedside. She is A&Ox3 with appropriate mood and affect. She is cooperative with today's exam. Exam of the LLE reveals intact post operative dressings, clean and dry, no significant drainage, erythema or calor noted. Post calves are NTTP, no palpable vascular cords, negative Justin's bilat. SCDs and TEDs in place. Pt moves leg well. DNVI BLE. ICD10 Worksheet Patient Problems: Problems Problem Status Onset Hip dislocation, left Acute Back pain Acute Chest discomfort Acute Chronic left hip pain Acute Complete heart block Acute Dyspnea Acute Dyspnea Acute Gastric ulcer with perforation Acute Generalized weakness Acute Hypoxemia Acute Osteoporosis Acute S/P hip replacement Acute Syncope Acute
[2016-10-25] MEDS: ENOXAPARIN 40 MG/0.4 ML SYR SC SCH (09:24)
[2016-10-25] MEDS: predniSONE 5 MG TAB PO SCH (09:24)
[2016-10-25] MEDS: buPROPion XL 150 MG TAB PO SCH (09:29)
[2016-10-25] MEDS: FLUTICASONE/SALMETER 250/50MCG DISKUS IH SCH ×2 (09:30→21:14)
[2016-10-25] MEDS: PANTOPRAZOLE SODIUM 40 MG TAB PO SCH (09:30)
[2016-10-25] MEDS: GABAPENTIN 300 MG CAP PO SCH ×3 (09:30→20:04)
[2016-10-25] MEDS: FAMOTIDINE 20 MG TAB PO SCH ×2 (09:31→20:05)
[2016-10-25] MEDS: NYSTATIN POWDER 15 GM BTL TP SCH ×2 (09:32→20:12)
--- NOTE | 2016-10-25 11:29 | HOSPPROG ---
Hospitalist Progress Note Assessment/Plan: 80-year-old with recurrent hip dislocations is admitted with a spontaneous hip dislocation while sleeping, she was taken to the OR by Dr. Ledesma for a revision of her BROOKS to a constrained total hip # recurrent hip dislocations status post revision, will continue hip precautions. Working with Physical and Occupational therapy who recommend SNF rehab however the patient is reluctant and wants to go home. Will continue to work with therapy and work on discharge planning * discharge planning, patient medically ready for discharge * continue therapies # acute on chronic respiratory failure secondary to COPD. Postoperatively she required BiPAP, she is back to baseline. # COPD on 3 L at baseline continue home medications. # UTI with severe sepsis, finished therapy with Keflex # history of chronic steroid use as, status post stress dose steroids back on p.o. prednisone will continue to taper as outpatient with Dr. Jimenez # history of complete heart block status post ppm # hypothyroidism, low TSH on admission -Synthroid dose adjusted. Will repeat TSH in 6 weeks Subjective: patient new to me and chart reviewed. No specific complaints of hip pain. Angry about having to go to rehab and she would like to go home. Objective: Vital Signs Temp Pulse Resp BP Pulse Ox 36.6 C 88 16 145/80 H 3 L 10/25/16 08:00 10/25/16 10:25 10/25/16 10:25 10/25/16 08:00 10/25/16 10:25 Laboratory Results 10/24/16 04:30 10/24/16 04:30 10/24/16 10/25/16 10/26/16 05:59 05:59 05:59 Intake Total 850 300 Output Total 1320 700 Balance -470 -400 PT 13.8 SEC (12.0-15.0) 10/21/16 17:00 INR 1.07 (0.83-1.16) 10/21/16 17:00 - Physical Exam Constitutional: chronically ill appearing, uncomfortable Ears, Nose, Mouth, Throat: moist mucous membranes Cardiovascular: regular rate and rhythym Respiratory: no respiratory distress, reduced air movement, bronchial breath sounds Gastrointestinal: normoactive bowel sounds, soft, non-tender abdomen Neurologic: AAOx3 ICD10 Worksheet Patient Problems: Problems Problem Status Onset Gastric ulcer with perforation Acute Back pain Acute Hypoxemia Acute Osteoporosis Acute S/P hip replacement Acute Generalized weakness Acute Hip dislocation, left Acute Dyspnea Acute Syncope Acute Complete heart block Acute Chest discomfort Acute Dyspnea Acute Chronic left hip pain Acute
[2016-10-25] MEDS: LACTULOSE 20 GM/30 ML UDCUP PO PRN (17:25)
[2016-10-25] MEDS: SENNOSIDES 1 TAB PO SCH (20:05)
[2016-10-25] MEDS: diphenhydrAMINE 25 MG CAP PO SCH (21:58)
[2016-10-25 23:36] VITALS: PULSE 86; TEMP 97.9
[2016-10-26] MEDS: IPRATROPIUM/ALBUTEROL 3 ML DEYVIAL IH SCH ×3 (01:04→09:19)
[2016-10-26] MEDS: OXYCODONE/APAP 5/325 TAB PO SCH ×3 (05:38→14:11)
[2016-10-26] MEDS: CEPHALEXIN 500 MG CAP PO SCH ×2 (05:38→12:44)
[2016-10-26] MEDS: LEVOTHYROXINE 25 MCG TAB PO SCH (05:38)
[2016-10-26] MEDS: BENZONATATE 100 MG CAP PO PRN (05:51)
[2016-10-26] MEDS: PANTOPRAZOLE SODIUM 40 MG TAB PO SCH (08:49)
[2016-10-26] MEDS: GABAPENTIN 300 MG CAP PO SCH (08:49)
[2016-10-26] MEDS: predniSONE 5 MG TAB PO SCH (08:50)
[2016-10-26] MEDS: CYCLOBENZAPRINE 10 MG TAB PO PRN (08:50)
[2016-10-26] MEDS: buPROPion XL 150 MG TAB PO SCH (08:51)
[2016-10-26] MEDS: FAMOTIDINE 20 MG TAB PO SCH (08:51)
[2016-10-26] MEDS: ENOXAPARIN 40 MG/0.4 ML SYR SC SCH (08:51)
[2016-10-26] MEDS: oxyCODONE IR 5 MG TAB PO PRN ×3 (08:54→16:19)
[2016-10-26] MEDS: LACTULOSE 20 GM/30 ML UDCUP PO PRN (08:55)
[2016-10-26] MEDS: NYSTATIN POWDER 15 GM BTL TP SCH (08:59)
[2016-10-26] MEDS: FLUTICASONE/SALMETER 250/50MCG DISKUS IH SCH (09:20)
[2016-10-26 09:32] VITALS: BP 128/82; RESP 16; O2SAT 95
--- NOTE | 2016-10-26 11:05 | SOAPPROG ---
SOAP Progress Note Assessment/Plan: Assessmen/Plan: Assessment/Plan: Assessment/Plan: L hip arthroplasty revision performed by Dr. Ledesma, POD#5 - Cont current PO pain management - Cont PT/OT - Cont hip precautions - Progress to WBAT with walker - Cont Lovenox for VTE chemoprophylaxis, pt will cont this for 3 wks postoperatively - SCDs/TEDs for mechanical prophylaxis - Antibiotics for UTI, PO Keflex per hospitalist service - Cleared to d/c to rehab from ortho standpoint 10/26/16 11:05 10/26/16 11:06 Subjective: Pt seen at bedside. No complaints of significant pain today, but pt does note some "general malaise.". Pt is tolerating her diet and medications well. Seh denies any tovar, sob, cp, abd pain, bilateral calf pain, or new onset n/t. We have again discussed the need for a rehab facility for her recovery, and she notes that she is amenable to going to [facility], and that case management is working on placement. She has no additional concerns or complaints at this time. Objective: Vital Signs Temp Pulse Resp BP Pulse Ox 36.6 C 86 16 128/82 H 95 10/25/16 23:34 10/26/16 08:00 10/26/16 08:00 10/26/16 08:00 10/26/16 08:00 Laboratory Results 10/24/16 04:30 10/24/16 04:30 10/25/16 10/26/16 10/27/16 05:59 05:59 05:59 Intake Total 300 400 Output Total 700 300 Balance -400 100 PT 13.8 SEC (12.0-15.0) 10/21/16 17:00 INR 1.07 (0.83-1.16) 10/21/16 17:00 Pt seen at bedside. She is A&Ox3 with appropriate mood and affect. She is pleasant and cooperative with today's exam. Exam of the LLE reveals intact post operative dressings, dry, surgical incision appears to be healing well with no significant drainage, erythema or calor noted. Intact renata. Post calves are NTTP, no palpable vascular cords, negative Justin's bilat. SCDs and TEDs/TIMOTHY in place. Pt moves leg well. DNVI BLE. ICD10 Worksheet Patient Problems: Problems Problem Status Onset Hip dislocation, left Acute Back pain Acute Chest discomfort Acute Chronic left hip pain Acute Complete heart block Acute Dyspnea Acute Dyspnea Acute Gastric ulcer with perforation Acute Generalized weakness Acute Hypoxemia Acute Osteoporosis Acute S/P hip replacement Acute Syncope Acute
--- NOTE | 2016-10-26 12:37 | PDIAF ---
- Diagnosis Diagnosis: hip dislocation, s/p revision BROOKS Code Status: Full Code - Medication Management Discharge Medications: Medications to Continue on Transfer Ascorbic Acid [Vitamin C 500 mg (*)] 1,000 mg PO BID 08/26/13 [Last Taken ] Calcium Carbonate [Tums 500MG (*)] 1,000 - 1,500 mg PO DAILY PRN 08/26/13 [Last Taken 08/18/16] Sennosides [Senokot] 2 each PO HS 08/26/13 [Last Taken 10/20/16] Pantoprazole Sodium [Protonix 40mg (*)] 40 mg PO DAILY 09/15/13 [Last Taken 01/29] Alendronate Sodium [Fosamax 70 MG (*)] 70 mg PO BERNAL@07 03/29/16 [Last Taken 10/12] Gabapentin [Neurontin 300 MG (*)] 300 mg PO BIDMEAL 03/29/16 [Last Taken 18:00] buPROPion XL [Wellbutrin 150mg XL] 150 mg PO DAILY 03/29/16 [Last Taken 10/20/16 ] diphenhydrAMINE [Benadryl 25 MG (*)] 25 mg PO 05/17/16 [Last Taken 10/20/16] Albuterol [Ventolin Hfa Inhaler] 2 puffs IH QID PRN 05/26/16 [Last Taken ] Fluticasone Nasal [Flonase Nasal [place]] 1 sprays EACHNARE DAILY PRN 07/20/16 [ Last Taken 08/18/16] Gabapentin [Neurontin 300 MG (*)] 600 mg PO HS 07/20/16 [Last Taken 10/19/16] Dicyclomine HCl 20 mg PO QID PRN 07/25/16 [Last Taken 08/10/16] Cholecalciferol Vit D3 [Vitamin D3 (*)] 2,000 units PO DAILY 08/11/16 [Last Taken 10/20/16] HYDROmorphone HCL [Dilaudid 2 mg (*)] 2 mg PO DAILY PRN 08/11/16 [Last Taken 7 Days Ago] Ipratropium/Albuterol [Duoneb (*)] 3 ml IH QID PRN 08/11/16 [Last Taken 21:00] Promethazine HCl [Phenergan 25mg (*)] 25 mg PO Q8H PRN 08/11/16 [Last Taken ] Levothyroxine [Synthroid 50 mcg (*)] 50 mcg PO DAILY06 09/24/16 [Last Taken 01/29] Benzonatate [Tessalon Pearles] 100 mg PO TID PRN 10/21/16 [Last Taken 10/20/16] HYDROcodone BIT/HOMATROP ME-BR [HYDROCODONE-HOMATROPINE SYRUP] 5 - 10 ml PO HS PRN 10/21/16 [Last Taken 10/20/16] Herbals/Supplements -Info Only 1 each PO DAILY 10/21/16 [Last Taken Unknown] Nystatin Powder [Mycostatin Powder] 1 yoan TP BID 10/21/16 [Last Taken Unknown] predniSONE 7.5 mg PO DAILY 10/21/16 [Last Taken 10/20/16] Fluticasone/Salmeter 250/50Mcg [Advair 250/50 (*)] 1 puffs IH BID 10/23/16 [ Last Taken Unknown] Cephalexin [Keflex (*)] 500 mg PO Q6HRS #28 cap 10/26/16 [Last Taken Unknown] Cyclobenzaprine [Flexeril 10 MG (*)] 10 mg PO Q8HRS PRN #0 tab 10/26/16 [Last Taken Unknown] oxyCODONE IR [Oxycodone Ir (*)] 5 - 10 mg PO Q3HRS PRN #30 tab 10/26/16 [Last Taken Unknown] Discharge Medications: Refer to the Discharge Home Medication list for PRN reason. - Orders Services needed: Registered Nurse, Certified Safety Consultant, Master Tube Heater , Physical Therapy, Occupational Therapy Diet Recommendation: no restrictions on diet Diet Texture: Regular Texture Diet Wound Care Instructions: Per orthopedics - Follow Up Care Current Providers and Referrals: Alexis Ferrara MD [Primary Care Provider] - As per Instructions Otilio Ledesma MD [Medical Doctor] - (Pt is to follow up w/ Dr. Ledesma 10-14 days postoperatively, or sooner with any additional concerns or complaints. She is encouraged to contact the office as soon as possible to schedule this appointment.)
--- NOTE | 2016-10-26 13:10 | GDS ---
[f rep st] DISCHARGE SUMMARY DIAGNOSES: 1. Recurrent hip dislocations, status post revision of total hip arthroplasty. 2. Acute on chronic respiratory failure secondary to chronic obstructive pulmonary disease, back to baseline. 3. Chronic obstructive pulmonary disease, on 3 L of oxygen at baseline. 4. Urinary tract infection, on Keflex. 5. History of chronic steroid use. 6. History of complete heart block, status post pacemaker placement. 7. Hypothyroidism. Synthroid dose adjusted. Will need repeat TSH in 6 weeks. HOSPITAL COURSE: The patient is a 80-year-old with recurrent hip dislocations. She was admitted wi th hip pain and was taken to the OR by Dr. Ledesma for revision of her total hip arthroplasty to a con strained total hip. Postoperatively, she did develop acute on chronic respiratory failure. She req uired BiPAP briefly; however, was weaned back to her usual 3 L/minute and has been stable since then . She also had a TSH checked during her admission that was low so her Synthroid dose was adjusted a nd will need repeat lab tests in 6 weeks. She also developed a urinary tract infection associated w ith sepsis during her hospital course. She is currently on oral antibiotics and will finish therapy with Keflex. The rest of her medical issues remained stable. CONDITION ON DISCHARGE: Good. PHYSICAL EXAMINATION: VITAL SIGNS: Stable. She has been afebrile. Heart rate 86, blood pressure 1 28/82. She is 95% on 3 L. GENERAL: She is alert and oriented. She is denying pain. HEART: Regu lar. LUNGS: Diminished bilaterally. DISCHARGE MEDICATIONS: Please see discharge medication form. FOLLOWUP: She will be discharged to [facility]. Total time spent with the patient on the day of discharge and coordination of care is 35 minutes. Copy requested to: [facility] /[id number]/MODL
== END 2016-10-26 16:28 | DRG 466 ==
LOC: EDUNIT# → OBSVTOIN 16:07 → F2N 17:54 → F3N 10-23 17:05
PROVIDERS: ADMIT Internal Medicine; ATTEND Internal Medicine
PROC: 0SPB0JZ Removal of Synthetic Substitute from Left Hip Joint, Open Approach (ICD-10-PCS; principal; 2016-10-21 11:00)
PROC: 0SRB029 Replacement of Left Hip Joint with Metal on Polyethylene Synthetic Substitute, Cemented, Open Approach (ICD-10-PCS; principal; 2016-10-21 11:00)
DX: T84.021A Dislocation of internal left hip prosthesis, initial encounter (principal); A41.9 Sepsis, unspecified organism; R65.20 Severe sepsis without septic shock; N39.0 Urinary tract infection, site not specified; B96.20 Unspecified Escherichia coli [E. coli] as the cause of diseases classified elsewhere; J96.20 Acute and chronic respiratory failure, unspecified whether with hypoxia or hypercapnia; J44.9 Chronic obstructive pulmonary disease, unspecified; K27.9 Peptic ulcer, site unspecified, unspecified as acute or chronic, without hemorrhage or perforation; G89.29 Other chronic pain; E03.9 Hypothyroidism, unspecified; E11.9 Type 2 diabetes mellitus without complications; G47.33 Obstructive sleep apnea (adult) (pediatric); F32.9 Major depressive disorder, single episode, unspecified; Z87.891 Personal history of nicotine dependence; Z79.51 Long term (current) use of inhaled steroids; Z79.52 Long term (current) use of systemic steroids; Z95.0 Presence of cardiac pacemaker
CPT/HCPCS: 96374; 97110-GP; 97116-GP; 97162-GP; 97166-GO; 97530-GO; 97530-GP; 97535-GO; C1713; G8978-GP-CL; G8979-GP-CI; G8987-GO-CL; G8988-GO-CI; J0692; J1650; J2060; J2250; J2370; J2405; J2704; J3010; J3370; Q9967

== ENCOUNTER 2016-11-01 08:03 | Emergency (ER) | payer OTHER, MEDICAID ==
--- NOTE | 2016-11-01 08:19 | CPEKG ---
Heart Rate: 74 RR Interval: 811 P-R Interval: 132 QRSD Interval: 116 QT Interval: 420 QTC Interval: 466 P [place]: 91 QRS [place]: 63 T Wave [place]: 73 EKG Severity - ABNORMAL ECG - EKG Impression: ATRIAL-VENTRICULAR DUAL-PACED RHYTHM Electronically Signed By: Salvatore Reza 01-Nov-2016 15:46:31
--- NOTE | 2016-11-01 08:23 | EDPHY ---
H & P Stated Complaint: Lt hip pain Time Seen by Provider: 11/01/16 08:21 HPI/ROS: CHIEF COMPLAINT: Left hip pain HISTORY OF PRESENT ILLNESS: The patient presents to the ED with complaints of acute left hip pain that she noticed while lying in her bed today. The patient has an unfortunate history of having recently undergone a total hip replacement secondary to hip instability. This was performed by Dr. Otilio Ledesma approximately 11 days ago. The indication for the surgery was inability to reduce a prior prosthetic hip dislocation. Patient had been recovering uneventfully when the presumed recurrent dislocation happened this morning. The patient denies any history of fall or trauma. She denies additional complaints. The patient has moderate pain with movement. While at rest she has minimal pain. She denies associated numbness or weakness. The patient denies fever, cough, congestion or other acute medical complaints. REVIEW OF SYSTEMS: A comprehensive 10 point review of systems is otherwise negative aside from elements mentioned in the history of present illness. Source: Patient Exam Limitations: No limitations - Personal History Current Tetanus/Diphtheria Vaccine: Yes Current Tetanus Diphtheria and Acellular Pertussis (TDAP): Yes Tetanus Vaccine Date: 2014 - Medical/Surgical History Hx Asthma: Yes Hx Chronic Respiratory Disease: Yes Hx Diabetes: No Hx Cardiac Disease: Yes Hx Renal Disease: No Hx Cirrhosis: No Hx Alcoholism: No Hx HIV/AIDS: No Hx Splenectomy or Spleen Trauma: No Other PMH: appy, hypothyroid, arthritis, copd, tanja hip replacements,HIP REVISION x5 (last October 2016, prolapsed bladder, "kidney stone surgery",. spinal stenosis, chronic pain, PPM, scoliosis, Posterior hip dislocation x3. T9 compression fracture with kyphoplasty, Surgery on T9 vertebrae, bilateral cataracts - Family History Significant Family History: No pertinent family hx - Social History Smoking Status: Former smoker - Physical Exam Exam: General Appearance: Alert, no distress, obese female Eyes: Pupils equal and round no pallor or injection ENT, Mouth: Mucous membranes moist Respiratory: There are no retractions, lungs are clear to auscultation, pacemaker noted to chest wall Cardiac: Regular rate and rhythm Gastrointestinal: Abdomen is soft and nontender, no masses, bowel sounds normal Neurological: 5/5 strength noted bilateral upper extremities, sensation is intact to light touch throughout the lower extremity bilaterally. The patient is able to move her toes in her left foot but secondary to her dislocation is unable to participate in a full motor examination. Skin: Warm and dry, no rashes Musculoskeletal: Neck is supple nontender Extremities: Left hip held in flexion and internal rotation. 2+ dorsalis pedis and posterior tibial pulses noted in the bilateral lower extremities Constitutional: Initial Vital Signs Temperature (C) 36.7 C 11/01/16 08:03 Respiratory Rate 18 11/01/16 08:03 Blood Pressure 165/71 H 11/01/16 08:03 O2 Sat (%) 84 L 11/01/16 08:03 O2 Delivery Mode Nasal Cannula O2 (L/minute) 3 Allergies/Adverse Reactions: celecoxib [From Celebrex] Allergy (Severe, Verified 10/21/16 07:28) Weight gain, Fatigue, Increased Pain duloxetine HCl [From Cymbalta] Allergy (Severe, Verified 10/21/16 07:28) Vomiting levofloxacin [From Levaquin] Allergy (Severe, Verified 10/21/16 07:28) Swelling/neck,face,throat sulfamethoxazole [From Septra] Allergy (Severe, Verified 10/21/16 07:28) Nausea Vomiting aspirin Allergy (Intermediate, Verified 10/21/16 07:28) stomach pain cephalexin monohydrate [From Keflex] Allergy (Intermediate, Verified 10/21/16 07 :28) Stomach Pain clarithromycin [From Biaxin] Allergy (Intermediate, Verified 10/21/16 07:28) Stomach Pain codeine [Codeine] Allergy (Intermediate, Verified 10/21/16 07:28) Nausea Vomiting hydrocodone bitartrate [From Vicodin] Allergy (Intermediate, Verified 10/21/16 07:28) Nausea Vomiting orphenadrine Allergy (Intermediate, Verified 10/21/16 07:28) Stomach pain tetracycline [Tetracycline] Allergy (Intermediate, Verified 10/21/16 07:28) Stomach Pain amoxicillin trihydrate [From Augmentin] Allergy (Verified 10/21/16 07:28) ciprofloxacin [From Cipro] Allergy (Verified 10/21/16 07:28) potassium clavulanate [From Augmentin] Allergy (Verified 10/21/16 07:28) shrimp Allergy (Verified 10/21/16 07:28) ORPHENGESIC Allergy (Intermediate, Uncoded 08/19/16 05:51) Stomach Pain Terpin hydrate Allergy (Intermediate, Uncoded 08/19/16 05:51) Stomach pain Home Medications: Medication Instructions Recorded Ascorbic Acid [Vitamin C 500 mg 1,000 mg PO BID 08/26/13 (*)] Calcium Carbonate [Tums 500MG (*)] 1,000 - 1,500 mg PO DAILY PRN 08/26/13 Sennosides [Senokot] 2 each PO HS 08/26/13 Pantoprazole Sodium [Protonix 40mg 40 mg PO DAILY 09/15/13 (*)] Alendronate Sodium [Fosamax 70 MG 70 mg PO BERNAL@07 03/29/16 (*)] Gabapentin [Neurontin 300 MG (*)] 300 mg PO BIDMEAL 03/29/16 buPROPion XL [Wellbutrin 150mg XL] 150 mg PO DAILY 03/29/16 diphenhydrAMINE [Benadryl 25 MG 25 mg PO HS 05/17/16 (*)] Albuterol [Ventolin Hfa Inhaler] 2 puffs IH QID PRN 05/26/16 Fluticasone Nasal [Flonase Nasal 1 sprays EACHNARE DAILY PRN 07/20/16 [place]] Gabapentin [Neurontin 300 MG (*)] 600 mg PO HS 07/20/16 Dicyclomine HCl 20 mg PO QID PRN 07/25/16 Cholecalciferol Vit D3 [Vitamin D3 2,000 units PO DAILY 08/11/16 (*)] Ipratropium/Albuterol [Duoneb (*)] 3 ml IH QID PRN 08/11/16 Promethazine HCl [Phenergan 25mg 25 mg PO Q8H PRN 08/11/16 (*)] Levothyroxine [Synthroid 50 mcg 50 mcg PO DAILY06 09/24/16 (*)] Benzonatate [Tessalon Pearles] 100 mg PO TID PRN 10/21/16 Herbals/Supplements -Info Only 1 each PO DAILY 10/21/16 Nystatin Powder [Mycostatin Powder] 1 yoan TP BID 10/21/16 predniSONE 7.5 mg PO DAILY 10/21/16 Fluticasone/Salmeter 250/50Mcg 1 puffs IH BID 10/23/16 [Advair 250/50 (*)] Cephalexin [Keflex (*)] 500 mg PO Q6HRS #28 cap 10/26/16 Cyclobenzaprine [Flexeril 10 MG 10 mg PO Q8HRS PRN #0 tab 10/26/16 (*)] HYDROcodone BIT/HOMATROP ME-BR 5 - 10 ml PO HS PRN #120 ml 10/26/16 [HYDROCODONE-HOMATROPINE SYRUP] HYDROmorphone HCL [Dilaudid 2 mg 2 mg PO DAILY PRN #30 tab 10/26/16 (*)] oxyCODONE IR [Oxycodone Ir (*)] 5 - 10 mg PO Q3HRS PRN #30 tab 10/26/16 Medical Decision Making - Diagnostics Imaging Results: Imaging Impressions Hip X-Ray 11/01/16 08:15 Impression: Lateral left hip dislocation. ED Course/Re-evaluation: I consulted with the patient's regular orthopedic surgeon Dr. Otilio Ledesma. She presents to the ED with a complicated recurrent left prosthetic hip dislocation. The patient did have a revision left total hip arthroplasty to a constrained left total hip replacement done 11 days ago and now presents with recurrent dislocation. I reviewed the patient's ED x-rays with her orthopedic surgeon Dr. Otilio Ledesma. Dr. Ledesma has requested that we consult with the [facility] given the patient's complicated hardware failure and recurrent dislocation. The patient is noted to be neurologically intact. I did consult the [facility] service. I spoke with Dr. Gonzalez at 9:20 a.m. who has accepted the patient for transfer. The patient will be transferred to the [facility] admitted to the orthopedic service for further care. Patient was re-evaluated at 9:45 a.m. and informed of the plan to transfer. She does consent for transfer. The patient did receive IV morphine for pain control. Patient will be transferred to the [facility] for further care. I have filled out the EMTALA transfer form. Differential Diagnosis: Differential diagnosis considered includes pelvic fracture, hip fracture, metabolic abnormality, arrhythmia, hip dislocation - Data Points Laboratory Results: Laboratory Results 11/01/16 08:00 11/01/16 08:00 11/01/16 11/01/16 11/01/16 08:00 08:00 08:00 WBC 8.08 10^3/uL 10^3/uL (3.80-9.50) RBC 3.68 10^6/uL L 10^6/uL (4.18-5.33) Hgb 9.8 g/dL L g/dL (12.6-16.3) Hct 33.5 % L % (38.0-47.0) MCV 91.0 fL fL (81.5-99.8) MCH 26.6 pg L pg (27.9-34.1) MCHC 29.3 g/dL L g/dL (32.4-36.7) RDW 16.1 % H % (11.5-15.2) Plt Count 466 10^3/uL H 10^3/uL (150-400) MPV 9.6 fL fL (8.7-11.7) Neut % (Auto) 57.9 % % (39.3-74.2) Lymph % (Auto) 24.9 % % (15.0-45.0) [place] % (Auto) 12.0 % % (4.5-13.0) Eos % (Auto) 4.2 % % (0.6-7.6) Baso % (Auto) 0.4 % % (0.3-1.7) Nucleat RBC Rel Count 0.0 % % (0.0-0.2) Absolute Neuts (auto) 4.68 10^3/uL 10^3/uL (1.70-6.50) Absolute Lymphs (auto) 2.01 10^3/uL 10^3/uL (1.00-3.00) Absolute Monos (auto) 0.97 10^3/uL H 10^3/uL (0.30-0.80) Absolute Eos (auto) 0.34 10^3/uL 10^3/uL (0.03-0.40) Absolute Basos (auto) 0.03 10^3/uL 10^3/uL (0.02-0.10) Absolute Nucleated RBC 0.00 10^3/uL 10^3/uL (0-0.01) Immature Gran % 0.6 % % (0.0-1.1) Immature Gran # 0.05 10^3/uL 10^3/uL (0.00-0.10) PT 13.5 SEC SEC (12.0-15.0) INR 1.04 (0.83-1.16) APTT 27.0 SEC SEC (23.0-38.0) Sodium 142 mEq/L mEq/L (134-144) Potassium 4.3 mEq/L mEq/L (3.5-5.2) Chloride 103 mEq/L mEq/L (97-110) Carbon Dioxide 32 mEq/l H mEq/l (22-31) Anion Gap 7 mEq/L L mEq/L (8-16) BUN 15 mg/dL mg/dL (7-23) Creatinine 0.6 mg/dL mg/dL (0.6-1.0) Estimated GFR > 60 Glucose 69 mg/dL L mg/dL (70-100) Calcium 9.2 mg/dL mg/dL (8.5-10.4) Medications Given: Discontinued Medications Morphine Sulfate (Morphine) 4 mg IVP EDNOW ONE Stop: 11/01/16 08:33 Last Admin: 11/01/16 08:38 Dose: 4 mg Morphine Sulfate (Morphine) 4 mg IVP EDNOW ONE Stop: 11/01/16 09:55 Last Admin: 11/01/16 10:01 Dose: 4 mg Departure - Departure Disposition: Acute Care Hospital Not [facility] Clinical Impression: Dislocation of internal left hip prosthesis, COPD (chronic obstructive pulmonary disease) Condition: Fair Referrals: Patient,NotPresent [Unknown] - As per Instructions
[2016-11-01 09:52] LABS: % IMMATURE GRANULYOCYTES 0.6 % (0.0-1.1); ABSOLUTE IMMATURE GRANULOCYTES 0.05 10^3/uL (0.00-0.10); ADD DIFF? NO; ADD MORPH? NO; ADD SCAN? NO; ATYPICAL LYMPHOCYTE FLAG 0 (0-99); FRAGMENT RBC FLAG 0 (0-99); HEMATOCRIT 33.5 % (38.0-47.0); HEMOGLOBIN 9.8 g/dL (12.6-16.3); LEFT SHIFT FLG 0 (0-99); LIPEMIA HEMOLYSIS FLAG 70 (0-99); MEAN CELL HEMOGLOBIN 26.6 pg (27.9-34.1); MEAN CELL HEMOGLOBIN CONCENTR. 29.3 g/dL (32.4-36.7); MEAN PLATELET VOLUME 9.6 fL (8.7-11.7); PLATELET CLUMPS FLAG 0 (0-99); PLATELET COUNT 466 10^3/uL (150-400); RED BLOOD CELL COUNT 3.68 10^6/uL (4.18-5.33); RED CELL DISTRIBUTION WIDTH 16.1 % (11.5-15.2)
[2016-11-01 09:56] LABS: INR 1.04 (0.83-1.16); PROTIME(PATIENT) 13.5 SEC (12.0-15.0)
[2016-11-01 09:59] LABS: ANION GAP 7 mEq/L (8-16); CALCIUM 9.2 mg/dL (8.5-10.4); CARBON DIOXIDE 32 mEq/l (22-31); CHLORIDE 103 mEq/L (97-110); CREATININE 0.6 mg/dL (0.6-1.0); GLOMERULAR FILTRATION RATE > 60; GLUCOSE 69 mg/dL (70-100); POTASSIUM 4.3 mEq/L (3.5-5.2); SODIUM 142 mEq/L (134-144)
[2016-11-01 10:14] VITALS: PULSE 73; RESP 16; TEMP 98.6; O2SAT 98
[2016-11-01 10:43] VITALS: BP 111/78
== END 2016-11-01 11:26 | disposition short-term general hospital (02) ==
LOC: EDUNIT#
DX: T84.021A Dislocation of internal left hip prosthesis, initial encounter (principal); J44.9 Chronic obstructive pulmonary disease, unspecified; Z87.891 Personal history of nicotine dependence; Y79.2 Prosthetic and other implants, materials and accessory orthopedic devices associated with adverse incidents

== ENCOUNTER 2016-11-22 10:08 | Inpatient (IN) | payer OTHER, MEDICAID ==
--- NOTE | 2016-11-22 10:34 | CPEKG ---
Heart Rate: 84 RR Interval: 714 P-R Interval: 180 QRSD Interval: 122 QT Interval: 408 QTC Interval: 483 P [place]: 43 QRS [place]: 58 T Wave [place]: -10 EKG Severity - ABNORMAL ECG - EKG Impression: SINUS RHYTHM EKG Impression: ATRIAL PREMATURE COMPLEX EKG Impression: RIGHT BUNDLE BRANCH BLOCK Electronically Signed By: Salvatore Reza 22-Nov-2016 15:42:53
[2016-11-22] MEDS ORDERED: ONDANSETRON 4 MG/2 ML VIAL IVP ONE (10:45)
[2016-11-22] MEDS ORDERED: ONDANSETRON 4 MG/2 ML VIAL ONE (10:45)
[2016-11-22 10:50] LABS: % IMMATURE GRANULYOCYTES 0.3 % (0.0-1.1); ABSOLUTE IMMATURE GRANULOCYTES 0.03 10^3/uL (0.00-0.10); ADD DIFF? NO; ADD MORPH? NO; ADD SCAN? NO; ATYPICAL LYMPHOCYTE FLAG 10 (0-99); FRAGMENT RBC FLAG 0 (0-99); HEMATOCRIT 29.8 % (38.0-47.0); HEMOGLOBIN 9.1 g/dL (12.6-16.3); LEFT SHIFT FLG 0 (0-99); LIPEMIA HEMOLYSIS FLAG 80 (0-99); MEAN CELL HEMOGLOBIN 26.8 pg (27.9-34.1); MEAN CELL HEMOGLOBIN CONCENTR. 30.5 g/dL (32.4-36.7); MEAN CELL VOLUME 87.6 fL (81.5-99.8); MEAN PLATELET VOLUME 8.9 fL (8.7-11.7); PLATELET CLUMPS FLAG 10 (0-99); PLATELET COUNT 480 10^3/uL (150-400); RED CELL DISTRIBUTION WIDTH 16.6 % (11.5-15.2)
[2016-11-22] MEDS ORDERED: PROMETHAZINE HCL 25 MG/ML INJ ONE (10:58)
[2016-11-22 11:00] LABS: ALANINE AMINOTRANSFERASE 30 IU/L (9-52); ALKALINE PHOSPHATASE 122 IU/L (38-126); ANION GAP 9 mEq/L (8-16); ASPARTATE AMINOTRANSFERASE 25 IU/L (14-46); BILIRUBIN,TOTAL 0.5 mg/dL (0.1-1.4); BILIRUBIN-CONJUGATED 0.4 mg/dL (0.0-0.5); BILIRUBIN-UNCONJUGATED 0.1 mg/dL (0.0-1.1); CALCIUM 8.9 mg/dL (8.5-10.4); CARBON DIOXIDE 27 mEq/l (22-31); CHLORIDE 103 mEq/L (97-110); CREATININE 0.7 mg/dL (0.6-1.0); GLOMERULAR FILTRATION RATE > 60; GLUCOSE 70 mg/dL (70-100); POTASSIUM 3.3 mEq/L (3.5-5.2); SODIUM 139 mEq/L (134-144); TOTAL PROTEIN 6.2 g/dL (6.3-8.2)
[2016-11-22] MEDS ORDERED: PROMETHAZINE HCL 25 MG/ML INJ IVP ONE (11:03)
[2016-11-22] MEDS ORDERED: NS 1,000 ML IV ONE (11:03)
[2016-11-22 11:11] LABS: TROPONIN I < 0.012 ng/mL (0-0.034)
[2016-11-22] MEDS ORDERED: fentaNYL 100 MCG/2 ML INJ ONE (12:11)
[2016-11-22 12:19] LABS: COLOR YELLOW; LEUKOCYTE ESTERASE,URINE 1+ (NEGATIVE); NITRITE,URINE NEGATIVE (NEGATIVE)
[2016-11-22] MEDS ORDERED: IBUPROFEN 600 MG TAB PO ONE ×2 (12:20→12:25)
[2016-11-22] MEDS ORDERED: OXYCODONE/APAP 5/325 TAB PO ONE (12:20)
[2016-11-22] MEDS ORDERED: OXYCODONE/APAP 5/325 TAB ONE (12:24)
[2016-11-22] MEDS ORDERED: ACETAMINOPHEN 325 MG TAB PO PRN (13:30)
[2016-11-22] MEDS ORDERED: ONDANSETRON 4 MG/2 ML VIAL IVP PRN (13:30)
[2016-11-22] MEDS ORDERED: PROMETHAZINE HCL 25 MG/ML INJ IVP PRN (13:30)
[2016-11-22] MEDS ORDERED: POLYETHYLENE GLYCOL 3350 17 GM PKT PO PRN (13:31)
[2016-11-22] MEDS ORDERED: MAGNESIUM HYDROXIDE 30 ML UDCUP PO PRN (13:31)
[2016-11-22] MEDS ORDERED: BISACODYL 10 MG SUPP PR PRN (13:31)
[2016-11-22] MEDS ORDERED: LACTULOSE 20 GM/30 ML UDCUP PO PRN (13:31)
--- NOTE | 2016-11-22 13:53 | GHP ---
[f rep st] HISTORY AND PHYSICAL DATE OF ADMISSION: 11/22/2016 CHIEF COMPLAINT: Nausea. HISTORY OF PRESENT ILLNESS: This is a 81-year-old female who underwent a left total hip arthroplast y revision on 10/21/[address] Ledesma, who was released from [facility] a few days ago, who pre sents to the emergency department today with nausea. She says that the nausea began a few days ago. She has been having some constipation and no diarrhea. At 1 o'clock this morning, she was awoken with terrible nausea, no vomiting. Per report, she has been very weak and not been doing well at [facility]. She also reports abdominal pain that is described as severe and diffuse. PAST MEDICAL HISTORY: 1. COPD with chronic respiratory failure, on 3 L. 2. Pacemaker secondary to complete heart block. 3. Chronic back pain due to compression fractures and spinal stenosis. 4. Peptic ulcer disease and perforating ulcers. 5. Bilateral total hip arthroplasties with recent redo as mentioned in the HPI. 6. Appendectomy. MEDICATIONS: Home medications are reviewed. Refer to [employer] for details. ALLERGIES: List is extensive. Refer to [employer] for details. SOCIAL HISTORY: She denies any alcohol, tobacco or illicit drug use. She is a former smoker. FAMILY HISTORY: Reviewed and noncontributory. REVIEW OF SYSTEMS: Comprehensive 10-point review of systems was done and is negative, except for as mentioned in the HPI. PHYSICAL EXAM: VITAL SIGNS: Blood pressure 190/79, pulse of 88, respiratory rate 14, O2 saturation 97% on 3 L. Temperature afebrile. GENERAL: No acute distress. HEAD: Normocephalic, atraumatic. EYES: PERRLA. Sclerae anicteric. MOUTH: Moist mucous membranes. NECK: Supple. No lymphadeno lio. CARDIOVASCULAR: S1 and S2. No murmurs, rubs, clicks, gallops, or JVD. Trace lower extremi ty edema. PULMONARY: Lungs are clear. No wheezes, rales, or rhonchi. ABDOMEN: Distended. Diffu sely tender to palpation in all 4 quadrants with some guarding, but no rebound. EXTREMITIES: No cl ubbing or cyanosis. NEURO: Cranial nerves II through XII grossly intact. No focal motor or sensor y deficits. SKIN: Clear. No rashes. DIAGNOSTICS: WBC is 8.6, hemoglobin 9.1, hematocrit 29.8, platelets 480. Sodium 139, potassium 3.3 , chloride 103, BUN 7, creatinine 0.7, glucose 70. LFTs unremarkable. UA with 1+ leukocyte esteras e, 2-5 WBCs. EKG, which I visualized and personally interpreted, shows sinus rhythm, rate 84 beats per minute, ri ght bundle branch block, with no acute ischemic changes. ASSESSMENT AND PLAN: This is a 81-year-old female recently discharged from [facility], present ing with: 1. Nausea and abdominal pain of unclear etiology. Plan: The patient will be placed on observation , where we will treat her symptoms supportively with antiemetics. We will obtain a CT of her abdome n given the severity of her pain. The patient is also quite tender on exam. 2. Hypokalemia. Plan: Replace per protocol. 3. Pyuria, that seems to be asymptomatic. Plan: Monitor for signs and symptoms of urinary tract i nfection. Start antibiotics as indicated. Urine culture has been sent. The patient will be placed on observation. Anticipated discharge date is uncertain at this time. S he very well may need discharge back to [facility] if this is an option. /[id number]/MODL
[2016-11-22] MEDS ORDERED: NYSTATIN POWDER 15 GM BTL TP PRN (15:20)
[2016-11-22] MEDS ORDERED: HYDROCODONE/HOMATROPINE HYCODAN 5 ML UDL PO PRN (15:20)
[2016-11-22] MEDS ORDERED: NON-FORMULARY NEW DRUG (Albuterol 2 PUFFS) IH PRN (15:20)
[2016-11-22] MEDS ORDERED: DICYCLOMINE 20 MG TAB PO PRN (15:20)
[2016-11-22] MEDS ORDERED: CALCIUM CARBONATE 500 MG CHEWABLE TAB PO PRN (15:20)
[2016-11-22] MEDS ORDERED: FLUTICASONE NASAL 120 SPRAYS/16 GM MDI EACHNARE PRN (15:20)
[2016-11-22] MEDS ORDERED: ALBUTEROL HFA ANES ONLY 200 PUFFS/8.5 GM MDI IH PRN (15:29)
--- NOTE | 2016-11-22 15:44 | EDPHY ---
H & P Stated Complaint: epigastric pain - Personal History Current Tetanus/Diphtheria Vaccine: Yes Current Tetanus Diphtheria and Acellular Pertussis (TDAP): Yes Tetanus Vaccine Date: 2014 - Medical/Surgical History Hx Asthma: Yes Hx Chronic Respiratory Disease: Yes Hx Diabetes: No Hx Cardiac Disease: Yes Hx Renal Disease: No Hx Cirrhosis: No Hx Alcoholism: No Hx HIV/AIDS: No Hx Splenectomy or Spleen Trauma: No Other PMH: appy, hypothyroid, arthritis, copd, tanja hip replacements,HIP REVISION x5 (last October 2016, prolapsed bladder, "kidney stone surgery",. spinal stenosis, chronic pain, PPM, scoliosis, Posterior hip dislocation x3. T9 compression fracture with kyphoplasty, Surgery on T9 vertebrae, bilateral cataracts - Social History Smoking Status: Former smoker Constitutional: Initial Vital Signs Temperature (C) 36.9 C 11/22/16 10:25 Heart Rate 88 11/22/16 10:25 Respiratory Rate 14 11/22/16 10:25 Blood Pressure 190/79 H 11/22/16 10:25 O2 Sat (%) 97 11/22/16 10:25 O2 Delivery Mode Nasal Cannula O2 (L/minute) 3 Allergies/Adverse Reactions: celecoxib [From Celebrex] Allergy (Severe, Verified 11/22/16 10:24) Weight gain, Fatigue, Increased Pain duloxetine HCl [From Cymbalta] Allergy (Severe, Verified 11/22/16 10:24) Vomiting levofloxacin [From Levaquin] Allergy (Severe, Verified 11/22/16 10:24) Swelling/neck,face,throat sulfamethoxazole [From Septra] Allergy (Severe, Verified 11/22/16 10:24) Nausea Vomiting aspirin Allergy (Intermediate, Verified 11/22/16 10:24) stomach pain cephalexin monohydrate [From Keflex] Allergy (Intermediate, Verified 11/22/16 10 :24) Stomach Pain clarithromycin [From Biaxin] Allergy (Intermediate, Verified 11/22/16 10:24) Stomach Pain codeine [Codeine] Allergy (Intermediate, Verified 11/22/16 10:24) Nausea Vomiting hydrocodone bitartrate [From Vicodin] Allergy (Intermediate, Verified 11/22/16 10:24) Nausea Vomiting orphenadrine Allergy (Intermediate, Verified 11/22/16 10:24) Stomach pain tetracycline [Tetracycline] Allergy (Intermediate, Verified 11/22/16 10:24) Stomach Pain amoxicillin trihydrate [From Augmentin] Allergy (Verified 11/22/16 10:24) ciprofloxacin [From Cipro] Allergy (Verified 11/22/16 10:24) potassium clavulanate [From Augmentin] Allergy (Verified 11/22/16 10:24) shrimp Allergy (Verified 11/22/16 10:24) ORPHENGESIC Allergy (Intermediate, Uncoded 11/22/16 10:24) Stomach Pain Terpin hydrate Allergy (Intermediate, Uncoded 11/22/16 10:24) Stomach pain Home Medications: Medication Instructions Recorded Ascorbic Acid [Vitamin C 500 mg 1,000 mg PO BID 08/26/13 (*)] Calcium Carbonate [Tums 500MG (*)] 1,000 - 1,500 mg PO DAILY PRN 08/26/13 Sennosides [Senokot] 2 each PO HS 08/26/13 Alendronate Sodium [Fosamax 70 MG 70 mg PO BERNAL@07 03/29/16 (*)] Gabapentin [Neurontin 300 MG (*)] 300 mg PO BIDMEAL 03/29/16 buPROPion XL [Wellbutrin 150mg XL] 150 mg PO DAILY 03/29/16 diphenhydrAMINE [Benadryl 25 MG 25 mg PO HS 05/17/16 (*)] Albuterol [Ventolin Hfa Inhaler] 2 puffs IH QID PRN 05/26/16 Fluticasone Nasal [Flonase Nasal 1 sprays EACHNARE DAILY PRN 07/20/16 [place]] Gabapentin [Neurontin 300 MG (*)] 600 mg PO HS 07/20/16 Dicyclomine HCl 20 mg PO QID PRN 07/25/16 Cholecalciferol Vit D3 [Vitamin D3 2,000 units PO DAILY 08/11/16 (*)] Ipratropium/Albuterol [Duoneb (*)] 3 ml IH QID PRN 08/11/16 Promethazine HCl [Phenergan 25mg 25 mg PO Q8H PRN 08/11/16 (*)] Levothyroxine [Synthroid 50 mcg 50 mcg PO DAILY06 09/24/16 (*)] Herbals/Supplements -Info Only 1 each PO DAILY 10/21/16 Nystatin Powder [Mycostatin Powder] 1 yoan TP BID PRN 10/21/16 Fluticasone/Salmeter 500/50Mcg 1 puffs IH BID 11/22/16 [Advair 500/50 (*)] HYDROcodone BIT/HOMATROP ME-BR 2.5 ml PO Q6 PRN 11/22/16 [HYDROCODONE-HOMATROPINE SYRUP] Ibuprofen [Motrin (*)] 200 - 400 mg PO Q4HRS WHILE AWAKE 11/22/16 PRN oxyCODONE/APAP 5/325 [Percocet 1 - 2 tab PO Q4WA PRN 11/22/16 5/325 (*)] Medical Decision Making - Diagnostics EKG Interpretation: EKG: Complete interpretation has been separately recorded in the [facility] archive. Summary impression: Sinus rhythm, right bundle branch block - Data Points Laboratory Results: Laboratory Results 11/22/16 10:43 11/22/16 10:43 11/22/16 11/22/16 10:43 10:43 WBC 8.61 10^3/uL 10^3/uL (3.80-9.50) RBC 3.40 10^6/uL L 10^6/uL (4.18-5.33) Hgb 9.1 g/dL L g/dL (12.6-16.3) Hct 29.8 % L % (38.0-47.0) MCV 87.6 fL fL (81.5-99.8) MCH 26.8 pg L pg (27.9-34.1) MCHC 30.5 g/dL L g/dL (32.4-36.7) RDW 16.6 % H % (11.5-15.2) Plt Count 480 10^3/uL H 10^3/uL (150-400) MPV 8.9 fL fL (8.7-11.7) Neut % (Auto) 69.6 % % (39.3-74.2) Lymph % (Auto) 14.6 % L % (15.0-45.0) [place] % (Auto) 11.4 % % (4.5-13.0) Eos % (Auto) 3.8 % % (0.6-7.6) Baso % (Auto) 0.3 % % (0.3-1.7) Nucleat RBC Rel Count 0.0 % % (0.0-0.2) Absolute Neuts (auto) 5.98 10^3/uL 10^3/uL (1.70-6.50) Absolute Lymphs (auto) 1.26 10^3/uL 10^3/uL (1.00-3.00) Absolute Monos (auto) 0.98 10^3/uL H 10^3/uL (0.30-0.80) Absolute Eos (auto) 0.33 10^3/uL 10^3/uL (0.03-0.40) Absolute Basos (auto) 0.03 10^3/uL 10^3/uL (0.02-0.10) Absolute Nucleated RBC 0.00 10^3/uL 10^3/uL (0-0.01) Immature Gran % 0.3 % % (0.0-1.1) Immature Gran # 0.03 10^3/uL 10^3/uL (0.00-0.10) Sodium 139 mEq/L mEq/L (134-144) Potassium 3.3 mEq/L L mEq/L (3.5-5.2) Chloride 103 mEq/L mEq/L (97-110) Carbon Dioxide 27 mEq/l mEq/l (22-31) Anion Gap 9 mEq/L mEq/L (8-16) BUN 7 mg/dL mg/dL (7-23) Creatinine 0.7 mg/dL mg/dL (0.6-1.0) Estimated GFR > 60 Glucose 70 mg/dL mg/dL (70-100) Calcium 8.9 mg/dL mg/dL (8.5-10.4) Total Bilirubin 0.5 mg/dL mg/dL (0.1-1.4) Conjugated Bilirubin 0.4 mg/dL mg/dL (0.0-0.5) Unconjugated Bilirubin 0.1 mg/dL mg/dL (0.0-1.1) AST 25 IU/L IU/L (14-46) ALT 30 IU/L IU/L (9-52) Alkaline Phosphatase 122 IU/L IU/L (38-126) Troponin I < 0.012 ng/mL ng/mL (0-0.034) Total Protein 6.2 g/dL L g/dL (6.3-8.2) Albumin 3.0 g/dL L g/dL (3.5-5.0) Lipase 32.0 IU/L IU/L (23-300) Medications Given: Discontinued Medications Sodium Chloride (Ns) 1,000 mls @ 0 mls/hr IV ONCE ONE PRN Reason: Wide Open Stop: 11/22/16 11:04 Last Admin: 11/22/16 11:12 Dose: 1,000 mls Ibuprofen (Motrin) 600 mg PO ONCE ONE Stop: 11/22/16 12:21 Last Admin: 11/22/16 12:30 Dose: 600 mg Ondansetron HCl (Zofran) 4 mg IVP EDNOW ONE Stop: 11/22/16 10:46 Last Admin: 11/22/16 11:12 Dose: 4 mg Oxycodone/Acetaminophen (Percocet 5/325) 2 tab PO ONCE ONE Stop: 11/22/16 12:21 Last Admin: 11/22/16 12:30 Dose: 2 tab Promethazine HCl (Phenergan) 12.5 mg IVP ONCE ONE Stop: 11/22/16 11:04 Last Admin: 11/22/16 11:12 Dose: 12.5 mg Departure - Departure Disposition: [facility] Inpatient Acute
--- NOTE | 2016-11-22 15:44 | EDPHY ---
H & P Stated Complaint: epigastric pain HPI/ROS: Chief complaint: Nausea, abdominal pain History of present illness: This is a 81-year-old female presents to the emergency department for evaluation nausea. Patient reports the onset of symptoms earlier this morning. Nausea has been persistent. There has been no vomiting. She has developed associated abdominal pain. The symptoms have worsened. Her home healthcare nurse saw her today fell she looked unwell and she go to the emergency room. Home health was concerned she was getting dehydrated she has not been eating or drinking for the last few days. Patient did recently undergo hip surgery and was at rehab which she was recently discharged from. She is having trouble getting around her apartment as it is on the 2nd floor and she lives independently. Review of systems: A 10 point review of systems was obtained and other than described above was negative - Personal History Current Tetanus/Diphtheria Vaccine: Yes Current Tetanus Diphtheria and Acellular Pertussis (TDAP): Yes Tetanus Vaccine Date: 2014 - Medical/Surgical History Hx Asthma: Yes Hx Chronic Respiratory Disease: Yes Hx Diabetes: No Hx Cardiac Disease: Yes Hx Renal Disease: No Hx Cirrhosis: No Hx Alcoholism: No Hx HIV/AIDS: No Hx Splenectomy or Spleen Trauma: No Other PMH: appy, hypothyroid, arthritis, copd, tanja hip replacements,HIP REVISION x5 (last October 2016, prolapsed bladder, "kidney stone surgery",. spinal stenosis, chronic pain, PPM, scoliosis, Posterior hip dislocation x3. T9 compression fracture with kyphoplasty, Surgery on T9 vertebrae, bilateral cataracts - Social History Smoking Status: Former smoker - Physical Exam Exam: General Appearance: Alert, nontoxic. Eyes: Pupils equal and round no pallor or injection. ENT, Mouth: Mucous membranes moist. Respiratory: There are no retractions, lungs are clear to auscultation. Cardiovascular: Regular rate and rhythm. Gastrointestinal: Bowel sounds are normal. Abdomen is soft. Diffusely tender most pronounced in the epigastric region. Neurological: Alert and oriented. Strength and sensation intact and symmetrical. Skin: Warm and dry, no rashes. Musculoskeletal: Neck is supple non tender. Extremities are symmetrical, full range of motion. Psychiatric: Patient is oriented X 3, there is no agitation. Constitutional: Initial Vital Signs Temperature (C) 36.9 C 11/22/16 10:25 Heart Rate 88 11/22/16 10:25 Respiratory Rate 14 11/22/16 10:25 Blood Pressure 190/79 H 11/22/16 10:25 O2 Sat (%) 97 11/22/16 10:25 O2 Delivery Mode Nasal Cannula O2 (L/minute) 3 Allergies/Adverse Reactions: celecoxib [From Celebrex] Allergy (Severe, Verified 11/22/16 10:24) Weight gain, Fatigue, Increased Pain duloxetine HCl [From Cymbalta] Allergy (Severe, Verified 11/22/16 10:24) Vomiting levofloxacin [From Levaquin] Allergy (Severe, Verified 11/22/16 10:24) Swelling/neck,face,throat sulfamethoxazole [From Septra] Allergy (Severe, Verified 11/22/16 10:24) Nausea Vomiting aspirin Allergy (Intermediate, Verified 11/22/16 10:24) stomach pain cephalexin monohydrate [From Keflex] Allergy (Intermediate, Verified 11/22/16 10 :24) Stomach Pain clarithromycin [From Biaxin] Allergy (Intermediate, Verified 11/22/16 10:24) Stomach Pain codeine [Codeine] Allergy (Intermediate, Verified 11/22/16 10:24) Nausea Vomiting hydrocodone bitartrate [From Vicodin] Allergy (Intermediate, Verified 11/22/16 10:24) Nausea Vomiting orphenadrine Allergy (Intermediate, Verified 11/22/16 10:24) Stomach pain tetracycline [Tetracycline] Allergy (Intermediate, Verified 11/22/16 10:24) Stomach Pain amoxicillin trihydrate [From Augmentin] Allergy (Verified 11/22/16 10:24) ciprofloxacin [From Cipro] Allergy (Verified 11/22/16 10:24) potassium clavulanate [From Augmentin] Allergy (Verified 11/22/16 10:24) shrimp Allergy (Verified 11/22/16 10:24) ORPHENGESIC Allergy (Intermediate, Uncoded 11/22/16 10:24) Stomach Pain Terpin hydrate Allergy (Intermediate, Uncoded 11/22/16 10:24) Stomach pain Home Medications: Medication Instructions Recorded Ascorbic Acid [Vitamin C 500 mg 1,000 mg PO BID 08/26/13 (*)] Calcium Carbonate [Tums 500MG (*)] 1,000 - 1,500 mg PO DAILY PRN 08/26/13 Sennosides [Senokot] 2 each PO HS 08/26/13 Alendronate Sodium [Fosamax 70 MG 70 mg PO BERNAL@07 03/29/16 (*)] Gabapentin [Neurontin 300 MG (*)] 300 mg PO BIDMEAL 03/29/16 buPROPion XL [Wellbutrin 150mg XL] 150 mg PO DAILY 03/29/16 diphenhydrAMINE [Benadryl 25 MG 25 mg PO HS 05/17/16 (*)] Albuterol [Ventolin Hfa Inhaler] 2 puffs IH QID PRN 05/26/16 Fluticasone Nasal [Flonase Nasal 1 sprays EACHNARE DAILY PRN 07/20/16 [place]] Gabapentin [Neurontin 300 MG (*)] 600 mg PO HS 07/20/16 Dicyclomine HCl 20 mg PO QID PRN 07/25/16 Cholecalciferol Vit D3 [Vitamin D3 2,000 units PO DAILY 08/11/16 (*)] Ipratropium/Albuterol [Duoneb (*)] 3 ml IH QID PRN 08/11/16 Promethazine HCl [Phenergan 25mg 25 mg PO Q8H PRN 08/11/16 (*)] Levothyroxine [Synthroid 50 mcg 50 mcg PO DAILY06 09/24/16 (*)] Herbals/Supplements -Info Only 1 each PO DAILY 10/21/16 Nystatin Powder [Mycostatin Powder] 1 yoan TP BID PRN 10/21/16 Fluticasone/Salmeter 500/50Mcg 1 puffs IH BID 11/22/16 [Advair 500/50 (*)] HYDROcodone BIT/HOMATROP ME-BR 2.5 ml PO Q6 PRN 11/22/16 [HYDROCODONE-HOMATROPINE SYRUP] Ibuprofen [Motrin (*)] 200 - 400 mg PO Q4HRS WHILE AWAKE 11/22/16 PRN oxyCODONE/APAP 5/325 [Percocet 1 - 2 tab PO Q4WA PRN 11/22/16 5/325 (*)] Medical Decision Making ED Course/Re-evaluation: Patient is discussed with my secondary supervising physician Dr. Tim Reza. Patient presents to the emergency department for evaluation of nausea without vomiting and abdominal pain. Further she appears to have failure to thrive. She is living independently after recent hip surgery. She appears unable to care for herself. Workup was largely unremarkable. Symptoms persist. She will be admitted for further evaluation and care and determine appropriate long- term outpatient care. Plan has been discussed with patient voiced understanding and agreement with it. Differential Diagnosis: Included but not limited to gastritis, gastroenteritis, biliary tract disease, pancreatitis, pulmonary disease, cardiac disease - Data Points Laboratory Results: Laboratory Results 11/22/16 10:43 11/22/16 10:43 11/22/16 11/22/16 10:43 10:43 WBC 8.61 10^3/uL 10^3/uL (3.80-9.50) RBC 3.40 10^6/uL L 10^6/uL (4.18-5.33) Hgb 9.1 g/dL L g/dL (12.6-16.3) Hct 29.8 % L % (38.0-47.0) MCV 87.6 fL fL (81.5-99.8) MCH 26.8 pg L pg (27.9-34.1) MCHC 30.5 g/dL L g/dL (32.4-36.7) RDW 16.6 % H % (11.5-15.2) Plt Count 480 10^3/uL H 10^3/uL (150-400) MPV 8.9 fL fL (8.7-11.7) Neut % (Auto) 69.6 % % (39.3-74.2) Lymph % (Auto) 14.6 % L % (15.0-45.0) [place] % (Auto) 11.4 % % (4.5-13.0) Eos % (Auto) 3.8 % % (0.6-7.6) Baso % (Auto) 0.3 % % (0.3-1.7) Nucleat RBC Rel Count 0.0 % % (0.0-0.2) Absolute Neuts (auto) 5.98 10^3/uL 10^3/uL (1.70-6.50) Absolute Lymphs (auto) 1.26 10^3/uL 10^3/uL (1.00-3.00) Absolute Monos (auto) 0.98 10^3/uL H 10^3/uL (0.30-0.80) Absolute Eos (auto) 0.33 10^3/uL 10^3/uL (0.03-0.40) Absolute Basos (auto) 0.03 10^3/uL 10^3/uL (0.02-0.10) Absolute Nucleated RBC 0.00 10^3/uL 10^3/uL (0-0.01) Immature Gran % 0.3 % % (0.0-1.1) Immature Gran # 0.03 10^3/uL 10^3/uL (0.00-0.10) Sodium 139 mEq/L mEq/L (134-144) Potassium 3.3 mEq/L L mEq/L (3.5-5.2) Chloride 103 mEq/L mEq/L (97-110) Carbon Dioxide 27 mEq/l mEq/l (22-31) Anion Gap 9 mEq/L mEq/L (8-16) BUN 7 mg/dL mg/dL (7-23) Creatinine 0.7 mg/dL mg/dL (0.6-1.0) Estimated GFR > 60 Glucose 70 mg/dL mg/dL (70-100) Calcium 8.9 mg/dL mg/dL (8.5-10.4) Total Bilirubin 0.5 mg/dL mg/dL (0.1-1.4) Conjugated Bilirubin 0.4 mg/dL mg/dL (0.0-0.5) Unconjugated Bilirubin 0.1 mg/dL mg/dL (0.0-1.1) AST 25 IU/L IU/L (14-46) ALT 30 IU/L IU/L (9-52) Alkaline Phosphatase 122 IU/L IU/L (38-126) Troponin I < 0.012 ng/mL ng/mL (0-0.034) Total Protein 6.2 g/dL L g/dL (6.3-8.2) Albumin 3.0 g/dL L g/dL (3.5-5.0) Lipase 32.0 IU/L IU/L (23-300) Medications Given: Discontinued Medications Sodium Chloride (Ns) 1,000 mls @ 0 mls/hr IV ONCE ONE PRN Reason: Wide Open Stop: 11/22/16 11:04 Last Admin: 11/22/16 11:12 Dose: 1,000 mls Ibuprofen (Motrin) 600 mg PO ONCE ONE Stop: 11/22/16 12:21 Last Admin: 11/22/16 12:30 Dose: 600 mg Ondansetron HCl (Zofran) 4 mg IVP EDNOW ONE Stop: 11/22/16 10:46 Last Admin: 11/22/16 11:12 Dose: 4 mg Oxycodone/Acetaminophen (Percocet 5/325) 2 tab PO ONCE ONE Stop: 11/22/16 12:21 Last Admin: 11/22/16 12:30 Dose: 2 tab Promethazine HCl (Phenergan) 12.5 mg IVP ONCE ONE Stop: 11/22/16 11:04 Last Admin: 11/22/16 11:12 Dose: 12.5 mg Departure - Departure Disposition: [facility] Inpatient Acute Clinical Impression: Nausea Abdominal pain Qualifiers: Abdominal location: generalized Qualified Code(s): R10.84 - Generalized abdominal pain Condition: Fair
[2016-11-22] MEDS: OXYCODONE/APAP 5/325 TAB PO PRN (16:36)
[2016-11-22] MEDS: D5W 1/2 NS W/ 20 KCl/L 1,000 ML IV SCH (17:05)
[2016-11-22] MEDS: GABAPENTIN 300 MG CAP PO SCH ×2 (17:09→21:25)
[2016-11-22] MEDS: SENNOSIDES 1 TAB PO SCH (21:24)
[2016-11-22] MEDS: ASCORBIC ACID 500 MG TAB PO SCH (21:24)
[2016-11-22] MEDS: SENNOSIDES/DOCUSATE SODIUM TAB PO SCH (21:25)
[2016-11-22] MEDS: diphenhydrAMINE 25 MG CAP PO SCH (21:25)
[2016-11-22] MEDS: FLUTICASONE/SALMETER 500/50MCG DISKUS IH SCH (21:45)
[2016-11-23] MEDS: OXYCODONE/APAP 5/325 TAB PO PRN ×4 (04:51→20:25)
[2016-11-23] MEDS: LEVOTHYROXINE 50 MCG TAB PO SCH (04:51)
[2016-11-23] MEDS: D5W 1/2 NS W/ 20 KCl/L 1,000 ML IV SCH (04:53)
[2016-11-23 05:09] LABS: % IMMATURE GRANULYOCYTES 0.4 % (0.0-1.1); ABSOLUTE IMMATURE GRANULOCYTES 0.03 10^3/uL (0.00-0.10); ADD DIFF? NO; ADD MORPH? NO; ADD SCAN? NO; ATYPICAL LYMPHOCYTE FLAG 10 (0-99); FRAGMENT RBC FLAG 0 (0-99); HEMATOCRIT 28.8 % (38.0-47.0); HEMOGLOBIN 8.6 g/dL (12.6-16.3); LEFT SHIFT FLG 0 (0-99); LIPEMIA HEMOLYSIS FLAG 70 (0-99); MEAN CELL HEMOGLOBIN CONCENTR. 29.9 g/dL (32.4-36.7); MEAN CELL VOLUME 90.3 fL (81.5-99.8); MEAN PLATELET VOLUME 8.8 fL (8.7-11.7); PLATELET CLUMPS FLAG 0 (0-99); PLATELET COUNT 417 10^3/uL (150-400); RED BLOOD CELL COUNT 3.19 10^6/uL (4.18-5.33); RED CELL DISTRIBUTION WIDTH 16.6 % (11.5-15.2)
[2016-11-23 05:24] LABS: ANION GAP 7 mEq/L (8-16); CALCIUM 8.7 mg/dL (8.5-10.4); CARBON DIOXIDE 28 mEq/l (22-31); CHLORIDE 105 mEq/L (97-110); CREATININE 0.8 mg/dL (0.6-1.0); GLOMERULAR FILTRATION RATE > 60; GLUCOSE 92 mg/dL (70-100); POTASSIUM 3.7 mEq/L (3.5-5.2); SODIUM 140 mEq/L (134-144)
[2016-11-23] MEDS ORDERED: ALBUTEROL 200 PUFFS/18 GM MDI IH PRN (06:50)
[2016-11-23] MEDS ORDERED: ALENDRONATE SODIUM 70 MG TAB PO SCH (07:00)
[2016-11-23] MEDS ORDERED: Herbals/Supplements -Info Only PO SCH (09:00)
[2016-11-23] MEDS: CHOLECALCIFEROL VIT D3 1,000 UNITS TAB PO SCH (09:26)
[2016-11-23] MEDS: ENOXAPARIN 40 MG/0.4 ML SYR SC SCH (09:26)
[2016-11-23] MEDS: ASCORBIC ACID 500 MG TAB PO SCH ×2 (09:26→20:25)
[2016-11-23] MEDS: buPROPion XL 150 MG TAB PO SCH (09:27)
[2016-11-23] MEDS: GABAPENTIN 300 MG CAP PO SCH ×3 (09:27→20:24)
[2016-11-23] MEDS: SENNOSIDES/DOCUSATE SODIUM TAB PO SCH ×2 (09:27→20:24)
[2016-11-23] MEDS: FLUTICASONE/SALMETER 500/50MCG DISKUS IH SCH ×2 (12:25→21:06)
[2016-11-23] MEDS: IPRATROPIUM/ALBUTEROL 3 ML DEYVIAL IH PRN (12:30)
--- NOTE | 2016-11-23 14:22 | HOSPPROG ---
Hospitalist Progress Note Assessment/Plan: 81-year-old female recently discharged from [facility] presenting with # nausea vomiting abdominal pain of unclear etiology possibly related to medications (resolved) # failure to thrive # hypokalemia # asymptomatic pyuria # left shoulder and arm numbness likely positional causing nerve compression Plan: -patient is too weak to return home. Case Management is aware and is helping to find placement -DC IV fluids -will have her [employer] pacemaker interrogated Will change to inpatient status since the patient is too week and unsafe to go Subjective: patient is weak. improved nausea without vomiting. reports some left arm numbness but no weakness Objective: Vital Signs Temp Pulse Resp BP Pulse Ox 37.3 C 80 18 126/57 H 95 11/23/16 11:36 11/23/16 12:23 11/23/16 12:23 11/23/16 11:36 11/23/16 12:23 Laboratory Results 11/23/16 04:50 11/23/16 04:50 11/22/16 11/23/16 11/24/16 05:59 05:59 05:59 Intake Total 2310 Balance 2310 - Physical Exam Constitutional: no apparent distress, appears nourished, not in pain Cardiovascular: regular rate and rhythym, no murmur, rub, or gallop Respiratory: no respiratory distress, no rales or rhonchi, clear to auscultation Gastrointestinal: normoactive bowel sounds, soft, non-tender abdomen, no palpable masses, No guarding, No rebound Neurologic: AAOx3, CN II-XII Intact, No weakness, No numbness, No pronator drift , No facial droop ICD10 Worksheet Patient Problems: Problems Problem Status Onset Abdominal pain Acute Nausea Acute Back pain Acute Chest discomfort Acute Chronic left hip pain Acute Complete heart block Acute Dyspnea Acute Dyspnea Acute Gastric ulcer with perforation Acute Generalized weakness Acute Hip dislocation, left Acute Hypoxemia Acute Osteoporosis Acute S/P hip replacement Acute Syncope Acute
--- NOTE | 2016-11-23 16:00 | WOCRNPDOC ---
WOCRN Advanced Assessment Note - Skin Integrity Problem, Advanced Assess Coccyx Dressing Type: Allevyn Life Dressing Description: Intact, Soiled (w/ stool, distal aspect) Exudate Amount: Scant Exudate Color: Reddish/Yellow Exudate Characteristic(s): Serosanguinous Integumentary Issue Intervention: Visualized Under Dressing Chandrika Wound Tissue: Blanching, Erythema Chandrika Wound Swelling: Mild Wound Bed Color: Red Wound Bed Constitution: Smooth Tissue Site Odor: None Site Measurement - Head-to-Toe Length X Width X Depth (cm): coccyx: 0.4cmx0.2cmx0.1cm. L inner buttock (skin tear): 0.4cmx0.5cmx0.1cm Pressure Injury Stage: Stage 2 (coccyx) Pressure Injury Present on Admit: Yes Skin Integrity Problem Comment: Small area of partial-thickness tissue loss noted directly over coccyx, consistent in appearance w/ stage II pressure injury. There is also a small skin tear on patient's L inner buttock, which she reports occurred when dressing was removed. Nursing initiated Accu-max pump on the bed, as well as turns q2 and reposition in chair q1 w/ pressure-relieving cushion, all of which are appropriate interventions. Wound care will continue to monitor site ongoing, and will round on patient again on Tuesday 11/28.
[2016-11-23] MEDS: SENNOSIDES 1 TAB PO SCH (20:24)
[2016-11-23] MEDS: diphenhydrAMINE 25 MG CAP PO SCH (20:24)
[2016-11-24] MEDS: OXYCODONE/APAP 5/325 TAB PO PRN ×5 (04:55→23:31)
[2016-11-24] MEDS: LEVOTHYROXINE 50 MCG TAB PO SCH (04:55)
[2016-11-24] MEDS: FLUTICASONE/SALMETER 500/50MCG DISKUS IH SCH ×2 (08:26→21:38)
[2016-11-24] MEDS: CHOLECALCIFEROL VIT D3 1,000 UNITS TAB PO SCH (09:27)
[2016-11-24] MEDS: ASCORBIC ACID 500 MG TAB PO SCH ×2 (09:27→20:58)
[2016-11-24] MEDS: GABAPENTIN 300 MG CAP PO SCH ×3 (09:27→20:58)
[2016-11-24] MEDS: buPROPion XL 150 MG TAB PO SCH (09:27)
[2016-11-24] MEDS: SENNOSIDES/DOCUSATE SODIUM TAB PO SCH ×3 (09:28→21:28)
[2016-11-24] MEDS: ENOXAPARIN 40 MG/0.4 ML SYR SC SCH (09:29)
--- NOTE | 2016-11-24 15:26 | HOSPPROG ---
Hospitalist Progress Note Assessment/Plan: 81-year-old female recently discharged from [facility] presenting with # nausea vomiting abdominal pain of unclear etiology possibly related to medications (resolved) # failure to thrive # hypokalemia # asymptomatic pyuria # left shoulder and arm numbness likely positional causing nerve compression Plan: -dc home with home care once safe Subjective: tolerating diet. still very weak. no other acute complaints Objective: Vital Signs Temp Pulse Resp BP Pulse Ox 36.9 C 85 18 151/48 H 96 11/24/16 15:06 11/24/16 15:06 11/24/16 15:06 11/24/16 15:06 11/24/16 15:06 11/23/16 11/24/16 11/25/16 05:59 05:59 05:59 Intake Total 1136 Output Total 1000 Balance 136 - Physical Exam Constitutional: no apparent distress, appears nourished, not in pain Cardiovascular: regular rate and rhythym, no murmur, rub, or gallop Respiratory: no respiratory distress, no rales or rhonchi, clear to auscultation Gastrointestinal: normoactive bowel sounds, soft, non-tender abdomen, no palpable masses, No guarding, No rebound ICD10 Worksheet Patient Problems: Problems Problem Status Onset Gastric ulcer with perforation Acute Back pain Acute Hypoxemia Acute Osteoporosis Acute S/P hip replacement Acute Generalized weakness Acute Hip dislocation, left Acute Dyspnea Acute Syncope Acute Complete heart block Acute Chest discomfort Acute Dyspnea Acute Chronic left hip pain Acute Nausea Acute Abdominal pain Acute
[2016-11-24] MEDS: diphenhydrAMINE 25 MG CAP PO SCH (20:58)
[2016-11-24] MEDS: SENNOSIDES 1 TAB PO SCH (20:58)
[2016-11-25] MEDS: OXYCODONE/APAP 5/325 TAB PO PRN ×4 (02:55→15:27)
[2016-11-25] MEDS: LEVOTHYROXINE 50 MCG TAB PO SCH (06:10)
[2016-11-25] MEDS: GABAPENTIN 300 MG CAP PO SCH (09:25)
[2016-11-25] MEDS: ENOXAPARIN 40 MG/0.4 ML SYR SC SCH (09:29)
[2016-11-25] MEDS: CHOLECALCIFEROL VIT D3 1,000 UNITS TAB PO SCH (09:30)
[2016-11-25] MEDS: ASCORBIC ACID 500 MG TAB PO SCH (09:31)
[2016-11-25] MEDS: buPROPion XL 150 MG TAB PO SCH (09:35)
[2016-11-25] MEDS: IPRATROPIUM/ALBUTEROL 3 ML DEYVIAL IH PRN ×2 (10:19→15:49)
[2016-11-25] MEDS: FLUTICASONE/SALMETER 500/50MCG DISKUS IH SCH (10:20)
--- NOTE | 2016-11-25 13:25 | PDIAF ---
- Diagnosis Diagnosis: weakness Code Status: Full Code - Medication Management Discharge Medications: Medications to Continue on Transfer Ascorbic Acid [Vitamin C 500 mg (*)] 1,000 mg PO BID 08/26/13 [Last Taken ] Calcium Carbonate [Tums 500MG (*)] 1,000 - 1,500 mg PO DAILY PRN 08/26/13 [Last Taken 08/18/16] Sennosides [Senokot] 2 each PO 08/26/13 [Last Taken 11/21/16] Alendronate Sodium [Fosamax 70 MG (*)] 70 mg PO BERNAL@07 03/29/16 [Last Taken 11/16] Gabapentin [Neurontin 300 MG (*)] 300 mg PO BIDMEAL 03/29/16 [Last Taken 18:00] buPROPion XL [Wellbutrin 150mg XL] 150 mg PO DAILY 03/29/16 [Last Taken 11/21/16 ] diphenhydrAMINE [Benadryl 25 MG (*)] 25 mg PO 05/17/16 [Last Taken 11/21/16] Albuterol [Ventolin Hfa Inhaler] 2 puffs IH QID PRN 05/26/16 [Last Taken ] Fluticasone Nasal [Flonase Nasal [place]] 1 sprays EACHNARE DAILY PRN 07/20/16 [ Last Taken 08/18/16] Gabapentin [Neurontin 300 MG (*)] 600 mg PO HS 07/20/16 [Last Taken 10/19/16] Dicyclomine HCl 20 mg PO QID PRN 07/25/16 [Last Taken 11/22/16] Cholecalciferol Vit D3 [Vitamin D3 (*)] 2,000 units PO DAILY 08/11/16 [Last Taken 11/21/16] Ipratropium/Albuterol [Duoneb (*)] 3 ml IH QID PRN 08/11/16 [Last Taken 11/21/16 ] Promethazine HCl [Phenergan 25mg (*)] 25 mg PO Q8H PRN 08/11/16 [Last Taken 03/31] Levothyroxine [Synthroid 50 mcg (*)] 50 mcg PO DAILY06 09/24/16 [Last Taken 03/01] Herbals/Supplements -Info Only 1 each PO DAILY 10/21/16 [Last Taken Unknown] Nystatin Powder [Mycostatin Powder] 1 yoan TP BID PRN 10/21/16 [Last Taken Unknown] Fluticasone/Salmeter 500/50Mcg [Advair 500/50 (*)] 1 puffs IH BID 11/22/16 [ Last Taken 11/21/16] HYDROcodone BIT/HOMATROP ME-BR [HYDROCODONE-HOMATROPINE SYRUP] 2.5 ml PO Q6 PRN 11/22/16 [Last Taken Unknown] Ibuprofen [Motrin (*)] 200 - 400 mg PO Q4HRS WHILE AWAKE PRN 11/22/16 [Last Taken 11/21/16] oxyCODONE/APAP 5/325 [Percocet 5/325 (*)] 1 - 2 tab PO Q4WA PRN 11/22/16 [Last Taken 11/21/16] Discharge Medications: Refer to the Discharge Home Medication list for PRN reason. - Orders Services needed: Home Care, Physical Therapy, Occupational Therapy Home Care Face to Face: I certify that this patient was under my care and that I had the required [id number] encounter meeting the encounter requirements on the discharge day. My findings support the fact that the patient is homebound as defined in CMS Chapter 7 Medicare Benefits Manual 30.1.1, The condition of the patient is such that there exists a normal inability to leave home and consequently, leaving home would require a considerable and taxing effort. Diet Recommendation: no restrictions on diet Diet Texture: Regular Texture Diet - Follow Up Care Current Providers and Referrals: Patient,NotPresent [Primary Care Provider] -
[2016-11-25] MEDS: SENNOSIDES/DOCUSATE SODIUM TAB PO SCH (13:41)
--- NOTE | 2016-11-25 13:47 | GDS ---
[f rep st] DISCHARGE SUMMARY DISCHARGE DIAGNOSES: 1. Nausea and vomiting of unclear etiology. 2. Failure to thrive. 3. Hypokalemia. 4. Asymptomatic pyuria. CONSULTATIONS: None. HOSPITAL COURSE: Nausea, vomiting, and failure to thrive: Patient had recently been released from [facility], where she presented to the emergency department with nausea, vomiting, and weaknes s. During the patient's hospital course, nausea and vomiting have resolved; however, she has contin ued to be very weak. senior care facility placement was recommended but was refused by the [facility]enaro ent. On day of discharge, the plan will be for her to go home with home care. PHYSICAL EXAM: VITAL SIGNS: On the day of discharge, blood pressure 153/73, pulse 79, respiratory rate 18, O2 sat 94% on 5 L, temperature afebrile. GENERAL: No acute distress. HEART: S1, S2. LEONILA NGS: Clear. ABDOMEN: Soft. EXTREMITIES: No edema. PERTINENT LABORATORY AND X-RAY DATA: Abdominal x-ray done on 11/22/2016, refer to report. DISCHARGE MEDICATIONS: Please refer to discharge medication reconciliation in [facility] for details. DISCHARGE INSTRUCTIONS: The patient will be discharged from the hospital with home care. She shoul d follow up with her primary care provider in 1 week for routine hospital followup. She is to seek medical attention if she develops any worsening weakness or is not thriving at home. /[id number]/MODL
[2016-11-25 18:02] VITALS: BP 161/76; PULSE 88; RESP 16; TEMP 97.3; O2SAT 95
== END 2016-11-25 18:36 | disposition home health service (06) | DRG 392 ==
LOC: EDUNIT# → INTOOBSV 11:59 → F3E 13:40 → OBSVTOIN 11-23 14:52
PROVIDERS: ADMIT Family Medicine; ATTEND Family Medicine
DX: R11.2 Nausea with vomiting, unspecified (principal); R62.7 Adult failure to thrive; E87.6 Hypokalemia; N39.0 Urinary tract infection, site not specified; J44.9 Chronic obstructive pulmonary disease, unspecified; J96.10 Chronic respiratory failure, unspecified whether with hypoxia or hypercapnia; G89.29 Other chronic pain; E03.9 Hypothyroidism, unspecified; Z96.643 Presence of artificial hip joint, bilateral; Z99.81 Dependence on supplemental oxygen; Z87.11 Personal history of peptic ulcer disease; Z95.0 Presence of cardiac pacemaker; Z98.890 Other specified postprocedural states
CPT/HCPCS: 96374; 97116-GP; 97162-GP; 97166-GO; 97530-GP; 97535-GO; G0378; G8978-GP-CK; G8979-GP-CJ; G8987-GO-CK; G8988-GO-CI; J1650; J2405; J2550; J3010

== ENCOUNTER 2016-11-27 15:33 | Inpatient (IN) | payer OTHER, MEDICAID ==
[2016-11-27] MEDS ORDERED: PROMETHAZINE HCL 25 MG/ML INJ IVP ONE (16:04)
[2016-11-27] MEDS ORDERED: fentaNYL 100 MCG/2 ML INJ IVP ONE ×2 (16:04→17:15)
[2016-11-27 16:24] LABS: % IMMATURE GRANULYOCYTES 0.3 % (0.0-1.1); ABSOLUTE IMMATURE GRANULOCYTES 0.03 10^3/uL (0.00-0.10); ADD DIFF? NO; ADD MORPH? NO; ADD SCAN? NO; ATYPICAL LYMPHOCYTE FLAG 30 (0-99); FRAGMENT RBC FLAG 0 (0-99); HEMATOCRIT 34.6 % (38.0-47.0); HEMOGLOBIN 10.5 g/dL (12.6-16.3); LEFT SHIFT FLG 0 (0-99); LIPEMIA HEMOLYSIS FLAG 80 (0-99); MEAN CELL HEMOGLOBIN 26.3 pg (27.9-34.1); MEAN CELL HEMOGLOBIN CONCENTR. 30.3 g/dL (32.4-36.7); MEAN CELL VOLUME 86.7 fL (81.5-99.8); MEAN PLATELET VOLUME 8.9 fL (8.7-11.7); PLATELET CLUMPS FLAG 0 (0-99); PLATELET COUNT 457 10^3/uL (150-400); RED BLOOD CELL COUNT 3.99 10^6/uL (4.18-5.33); RED CELL DISTRIBUTION WIDTH 16.9 % (11.5-15.2)
[2016-11-27 16:37] LABS: ANION GAP 10 mEq/L (8-16); CALCIUM 9.8 mg/dL (8.5-10.4); CARBON DIOXIDE 28 mEq/l (22-31); CHLORIDE 98 mEq/L (97-110); CREATININE 0.8 mg/dL (0.6-1.0); GLOMERULAR FILTRATION RATE > 60; GLUCOSE 80 mg/dL (70-100); POTASSIUM 3.3 mEq/L (3.5-5.2); SODIUM 136 mEq/L (134-144)
--- NOTE | 2016-11-27 16:37 | CPEKG ---
Heart Rate: 82 RR Interval: 732 P-R Interval: 180 QRSD Interval: 124 QT Interval: 400 QTC Interval: 468 P [place]: 26 QRS [place]: 35 T Wave [place]: 1 EKG Severity - ABNORMAL ECG - EKG Impression: SINUS RHYTHM EKG Impression: RIGHT BUNDLE BRANCH BLOCK Electronically Signed By: Richar Sultana 27-Nov-2016 18:03:04
[2016-11-27 16:47] LABS: TROPONIN I < 0.012 ng/mL (0-0.034)
[2016-11-27 17:14] LABS: ALBUMIN 3.2 g/dL (3.5-5.0); BILIRUBIN,TOTAL 0.4 mg/dL (0.1-1.4); BILIRUBIN-CONJUGATED 0.1 mg/dL (0.0-0.5); BILIRUBIN-UNCONJUGATED 0.3 mg/dL (0.0-1.1); TOTAL PROTEIN 6.8 g/dL (6.3-8.2)
--- NOTE | 2016-11-27 17:53 | EDPHY ---
H & P Stated Complaint: Went home 2 days ago for same c/o;just got phenergan rx today Time Seen by Provider: 11/27/16 15:55 HPI/ROS: Chief complaint: Abdominal pain with nausea and vomiting History of present illness: This is a 81-year-old female who presents to the emergency department for evaluation of abdominal pain with nausea and vomiting. Patient has had ongoing issues with these problems for some time. She was admitted to the hospital on 11/22/2016, approximately 5 days ago. She was subsequently discharged on the , 2 days ago. She was initially feeling well at home but has had recurrence of abdominal pain with nausea and vomiting. Patient is currently homebound in a second-story apartment, unable to get around. She states she is not able to eat or drink. She does have home health care despite the help is still not feeling well. Review of systems: A 10 point review of systems was obtained and other than described above was negative - Personal History Current Tetanus Diphtheria and Acellular Pertussis (TDAP): Yes Tetanus Vaccine Date: 2014 - Medical/Surgical History Hx Asthma: Yes Hx Chronic Respiratory Disease: Yes Hx Diabetes: No Hx Cardiac Disease: Yes Hx Renal Disease: No Hx Cirrhosis: No Hx Alcoholism: No Hx HIV/AIDS: No Hx Splenectomy or Spleen Trauma: No Other PMH: appy, hypothyroid, arthritis, copd, tanja hip replacements,HIP REVISION x5 (last October 2016, prolapsed bladder, "kidney stone surgery",. spinal stenosis, chronic pain, PPM, scoliosis, Posterior hip dislocation x3. T9 compression fracture with kyphoplasty, Surgery on T9 vertebrae, bilateral cataracts - Social History Smoking Status: Former smoker - Physical Exam Exam: General Appearance: Alert, nontoxic. Eyes: Pupils equal and round no pallor or injection. ENT, Mouth: Mucous membranes moist. Respiratory: There are no retractions, lungs are clear to auscultation. Cardiovascular: Regular rate and rhythm. Gastrointestinal: Bowel sounds are normal. Abdomen is soft. Diffuse tenderness even to light palpation. Neurological: Alert and oriented. Strength and sensation intact and symmetrical. Skin: Warm and dry, no rashes. Musculoskeletal: Neck is supple nontender. Extremities are symmetrical, full range of motion. Psychiatric: Patient is oriented X 3, there is no agitation. Constitutional: Initial Vital Signs Temperature (C) 36.7 C 11/27/16 15:35 Heart Rate 96 11/27/16 15:35 Respiratory Rate 20 11/27/16 15:35 Blood Pressure 138/89 H 11/27/16 15:35 O2 Sat (%) 99 11/27/16 15:35 O2 Delivery Mode Nasal Cannula O2 (L/minute) 2 Allergies/Adverse Reactions: celecoxib [From Celebrex] Allergy (Severe, Verified 11/27/16 15:34) Weight gain, Fatigue, Increased Pain duloxetine HCl [From Cymbalta] Allergy (Severe, Verified 11/27/16 15:34) Vomiting levofloxacin [From Levaquin] Allergy (Severe, Verified 11/27/16 15:34) Swelling/neck,face,throat sulfamethoxazole [From Septra] Allergy (Severe, Verified 11/27/16 15:34) Nausea Vomiting aspirin Allergy (Intermediate, Verified 11/27/16 15:34) stomach pain cephalexin monohydrate [From Keflex] Allergy (Intermediate, Verified 11/27/16 15 :34) Stomach Pain clarithromycin [From Biaxin] Allergy (Intermediate, Verified 11/27/16 15:34) Stomach Pain codeine [Codeine] Allergy (Intermediate, Verified 11/27/16 15:34) Nausea Vomiting hydrocodone bitartrate [From Vicodin] Allergy (Intermediate, Verified 11/27/16 15:34) Nausea Vomiting orphenadrine Allergy (Intermediate, Verified 11/27/16 15:34) Stomach pain tetracycline [Tetracycline] Allergy (Intermediate, Verified 11/27/16 15:34) Stomach Pain amoxicillin trihydrate [From Augmentin] Allergy (Verified 11/27/16 15:34) ciprofloxacin [From Cipro] Allergy (Verified 11/27/16 15:34) potassium clavulanate [From Augmentin] Allergy (Verified 11/27/16 15:34) shrimp Allergy (Verified 11/27/16 15:34) ORPHENGESIC Allergy (Intermediate, Uncoded 11/22/16 10:24) Stomach Pain Terpin hydrate Allergy (Intermediate, Uncoded 11/22/16 10:24) Stomach pain Home Medications: Medication Instructions Recorded Ascorbic Acid [Vitamin C 500 mg 1,000 mg PO BID 08/26/13 (*)] Calcium Carbonate [Tums 500MG (*)] 1,000 - 1,500 mg PO DAILY PRN 08/26/13 Sennosides [Senokot] 2 each PO HS 08/26/13 Alendronate Sodium [Fosamax 70 MG 70 mg PO BERNAL@07 03/29/16 (*)] Gabapentin [Neurontin 300 MG (*)] 300 mg PO BIDMEAL 03/29/16 buPROPion XL [Wellbutrin 150mg XL] 150 mg PO DAILY 03/29/16 diphenhydrAMINE [Benadryl 25 MG 25 mg PO HS 05/17/16 (*)] Albuterol [Ventolin Hfa Inhaler] 2 puffs IH QID PRN 05/26/16 Fluticasone Nasal [Flonase Nasal 1 sprays EACHNARE DAILY PRN 07/20/16 Marydel] Gabapentin [Neurontin 300 MG (*)] 600 mg PO HS 07/20/16 Dicyclomine HCl 20 mg PO QID PRN 07/25/16 Cholecalciferol Vit D3 [Vitamin D3 2,000 units PO DAILY 08/11/16 (*)] Ipratropium/Albuterol [Duoneb (*)] 3 ml IH QID PRN 08/11/16 Promethazine HCl [Phenergan 25mg 25 mg PO Q8H PRN 08/11/16 (*)] Levothyroxine [Synthroid 50 mcg 50 mcg PO DAILY06 09/24/16 (*)] Herbals/Supplements -Info Only 1 each PO DAILY 10/21/16 Nystatin Powder [Mycostatin Powder] 1 yoan TP BID PRN 10/21/16 Fluticasone/Salmeter 500/50Mcg 1 puffs IH BID 11/22/16 [Advair 500/50 (*)] HYDROcodone BIT/HOMATROP ME-BR 2.5 ml PO Q6 PRN 11/22/16 [HYDROCODONE-HOMATROPINE SYRUP] Ibuprofen [Motrin (*)] 200 - 400 mg PO Q4HRS WHILE AWAKE 11/22/16 PRN oxyCODONE/APAP 5/325 [Percocet 1 - 2 tab PO Q4WA PRN 11/22/16 5/325 (*)] Promethazine HCl [Phenergan 25mg 25 mg PO DAILY PRN 11/27/16 (*)] Medical Decision Making - Diagnostics Imaging Results: Imaging Impressions Abdomen X-Ray 11/27/16 16:16 Impression: 1. Nonspecific bowel gas pattern. Imaging: I viewed and interpreted images myself ED Course/Re-evaluation: Patient is discussed with my secondary supervising physician Dr. Richar Sultana. Patient presents to the emergency department for persistent abdominal pain with nausea and vomiting. She is nontoxic. Evaluation is largely unremarkable. Ultimately I do not believe patient is safe to be discharged home. She remains symptomatic despite treatment here. She is not able to eat or drink. She is not able to get around her apartment well or get out on her own for outpatient follow-up care. She is admitted to the hospitalist service for further evaluation and care. Differential Diagnosis: Included but not limited to gastritis, gastroenteritis, peptic ulcer disease, biliary tract disease, pancreatitis, colitis, bowel perforation - Data Points Laboratory Results: Laboratory Results 11/27/16 16:10 11/27/16 16:10 11/27/16 11/27/16 11/27/16 16:20 16:10 16:10 WBC 10.29 10^3/uL H 10^3/uL (3.80-9.50) RBC 3.99 10^6/uL L 10^6/uL (4.18-5.33) Hgb 10.5 g/dL L g/dL (12.6-16.3) Hct 34.6 % L % (38.0-47.0) MCV 86.7 fL fL (81.5-99.8) MCH 26.3 pg L pg (27.9-34.1) MCHC 30.3 g/dL L g/dL (32.4-36.7) RDW 16.9 % H % (11.5-15.2) Plt Count 457 10^3/uL H 10^3/uL (150-400) MPV 8.9 fL fL (8.7-11.7) Neut % (Auto) 64.1 % % (39.3-74.2) Lymph % (Auto) 21.0 % % (15.0-45.0) Luce % (Auto) 10.1 % % (4.5-13.0) Eos % (Auto) 4.2 % % (0.6-7.6) Baso % (Auto) 0.3 % % (0.3-1.7) Nucleat RBC Rel Count 0.0 % % (0.0-0.2) Absolute Neuts (auto) 6.60 10^3/uL H 10^3/uL (1.70-6.50) Absolute Lymphs (auto) 2.16 10^3/uL 10^3/uL (1.00-3.00) Absolute Monos (auto) 1.04 10^3/uL H 10^3/uL (0.30-0.80) Absolute Eos (auto) 0.43 10^3/uL H 10^3/uL (0.03-0.40) Absolute Basos (auto) 0.03 10^3/uL 10^3/uL (0.02-0.10) Absolute Nucleated RBC 0.00 10^3/uL 10^3/uL (0-0.01) Immature Gran % 0.3 % % (0.0-1.1) Immature Gran # 0.03 10^3/uL 10^3/uL (0.00-0.10) Sodium 136 mEq/L mEq/L (134-144) Potassium 3.3 mEq/L L mEq/L (3.5-5.2) Chloride 98 mEq/L mEq/L (97-110) Carbon Dioxide 28 mEq/l mEq/l (22-31) Anion Gap 10 mEq/L mEq/L (8-16) BUN 6 mg/dL L mg/dL (7-23) Creatinine 0.8 mg/dL mg/dL (0.6-1.0) Estimated GFR > 60 Glucose 80 mg/dL mg/dL (70-100) Calcium 9.8 mg/dL mg/dL (8.5-10.4) Total Bilirubin 0.4 mg/dL mg/dL (0.1-1.4) Conjugated Bilirubin 0.1 mg/dL mg/dL (0.0-0.5) Unconjugated Bilirubin 0.3 mg/dL mg/dL (0.0-1.1) AST 25 IU/L IU/L (14-46) ALT 26 IU/L IU/L (9-52) Alkaline Phosphatase 129 IU/L H IU/L (38-126) Troponin I < 0.012 ng/mL ng/mL (0-0.034) Total Protein 6.8 g/dL g/dL (6.3-8.2) Albumin 3.2 g/dL L g/dL (3.5-5.0) Lipase 68.0 IU/L IU/L (23-300) Medications Given: Discontinued Medications Al Hydroxide/Mg Hydroxide (Maalox Susp) 30 ml PO ONCE ONE Stop: 11/27/16 20:04 Last Admin: 11/27/16 21:42 Dose: Not Given Diphenhydramine HCl (Benadryl Injection) 25 mg IVP EDNOW ONE Stop: 11/27/16 16:05 Last Admin: 11/27/16 16:20 Dose: 25 mg Fentanyl (Sublimaze) 50 mcg IVP EDNOW ONE Stop: 11/27/16 16:05 Last Admin: 11/27/16 16:20 Dose: 50 mcg Fentanyl (Sublimaze) 50 mcg IVP EDNOW ONE Stop: 11/27/16 17:16 Last Admin: 11/27/16 17:15 Dose: 50 mcg Promethazine HCl (Phenergan) 6.25 mg IVP EDNOW ONE Stop: 11/27/16 16:05 Last Admin: 11/27/16 16:20 Dose: 6.25 mg Departure - Departure Disposition: [facility] Acute Clinical Impression: Abdominal pain Qualifiers: Abdominal location: generalized Qualified Code(s): R10.84 - Generalized abdominal pain Condition: Good
[2016-11-27] MEDS ORDERED: ACETAMINOPHEN 325 MG TAB PO PRN (19:42)
[2016-11-27] MEDS ORDERED: ONDANSETRON 4 MG/2 ML VIAL IVP PRN (19:42)
[2016-11-27] MEDS ORDERED: NON-FORMULARY NEW DRUG (Albuterol 2 PUFFS) IH PRN (19:45)
[2016-11-27] MEDS ORDERED: PROMETHAZINE HCL 25 MG TAB PO PRN (19:45)
[2016-11-27] MEDS ORDERED: HYDROCODONE/HOMATROPINE HYCODAN 5 ML UDL PO PRN (19:45)
[2016-11-27] MEDS ORDERED: NYSTATIN POWDER 15 GM BTL TP PRN (19:45)
[2016-11-27] MEDS ORDERED: IPRATROPIUM/ALBUTEROL 3 ML DEYVIAL IH PRN (19:45)
[2016-11-27] MEDS ORDERED: CALCIUM CARBONATE 500 MG CHEWABLE TAB PO PRN (19:45)
[2016-11-27] MEDS ORDERED: DICYCLOMINE 20 MG TAB PO PRN (19:45)
[2016-11-27] MEDS ORDERED: FLUTICASONE NASAL 120 SPRAYS/16 GM MDI EACHNARE PRN (19:45)
--- NOTE | 2016-11-27 19:45 | CPEKG ---
Heart Rate: 89 RR Interval: 674 P-R Interval: 184 QRSD Interval: 122 QT Interval: 408 QTC Interval: 497 P [place]: 19 QRS [place]: 3 T Wave [place]: -15 EKG Severity - ABNORMAL ECG - EKG Impression: SINUS RHYTHM EKG Impression: RIGHT BUNDLE BRANCH BLOCK Electronically Signed By: Fuentes Chacko 28-Nov-2016 16:51:50
[2016-11-27] MEDS ORDERED: ALBUTEROL 60 PUFFS/8 GM MDI IH PRN (19:54)
[2016-11-27] MEDS ORDERED: MAG HYDROX/AL HYDROX/SIMETH 30 ML UDCUP PO ONE (20:03)
[2016-11-27] MEDS ORDERED: BISACODYL 10 MG SUPP PR PRN (20:06)
[2016-11-27] MEDS ORDERED: POLYETHYLENE GLYCOL 3350 17 GM PKT PO PRN (20:06)
[2016-11-27] MEDS ORDERED: MAGNESIUM HYDROXIDE 30 ML UDCUP PO PRN (20:06)
[2016-11-27] MEDS ORDERED: LACTULOSE 20 GM/30 ML UDCUP PO PRN (20:06)
[2016-11-27] MEDS ORDERED: ALTEPLASE 2 MG VIAL IVP PRN (20:19)
[2016-11-27 20:30] LABS: TROPONIN I < 0.012 ng/mL (0-0.034)
[2016-11-27] MEDS: DOCUSATE SODIUM 100 MG CAP PO SCH (20:37)
[2016-11-27] MEDS: ONDANSETRON DISINTEGRATING 4 MG TAB PO PRN (20:37)
[2016-11-27] MEDS: OXYCODONE/APAP 5/325 TAB PO PRN (20:38)
[2016-11-27] MEDS ORDERED: diphenhydrAMINE 25 MG CAP PO SCH (21:00)
[2016-11-27] MEDS ORDERED: GABAPENTIN 300 MG CAP PO SCH (21:00)
[2016-11-27] MEDS ORDERED: SENNOSIDES 1 TAB PO SCH (21:00)
--- NOTE | 2016-11-27 21:19 | GHP ---
[f rep st] HISTORY AND PHYSICAL DATE OF ADMISSION: 11/27/2016 CHIEF COMPLAINT: Nausea. HISTORY OF PRESENT ILLNESS: The patient is a 81-year-old female with a history of COPD, hypothyroidism and prior left hip arthroplasty with recurrent dislocations, requiring a revision in October of 2016. Returns to the hospital 2 days after recent discharge complaining of nausea and pain. She was admitted on November 22 with similar complaints which resolved without intervention. Some suspicion was raised that her symptoms may be related to medications. She has been taking frequent oxycodone tablets for reported ongoing left hip pain. She denies any recent falls. She states her hip started hurting again yesterday and her nausea has increased. She had a small amount of vomiting that she describes as mostly dry heaves. She denies hematemesis or coffee-grounds emesis. Her last bowel movement was yesterday and was hard. She denies bright red blood per rectum or melenic stools. She does give a history of constipation. She states all other opioids make her sick but the Percocet does not. Given her ongoing symptoms and difficulty managing herself at home, she is admitted to the hospital for consideration of placement. Upon arrival to the medical surgical floor, she complained to the nurse that she had some chest pain which radiated to her left arm. This has since resolved. She is chest pain-free at this time. She denies shortness of breath. She states she has a chronic cough. She denies fever. She has no urinary symptoms. Per the ER report, she has been mostly bed bound and is unable to care for herself at home. PAST MEDICAL HISTORY: 1. Chronic hypoxemic respiratory failure secondary to COPD on 3 L of oxygen. 2. History of complete heart block, status post pacemaker. 3. Chronic back pain due to compression fractures and spinal stenosis. 4. Peptic ulcer disease and history of perforating ulcers. PAST SURGICAL HISTORY: 1. Bilateral total hip arthroplasties with recent revision in October of 2016 on the left side. 2. Appendectomy. MEDICATIONS: Please see [employer] for complete updated outpatient medication list. ALLERGIES: Please see [employer] for her extensive list of allergies. SOCIAL HISTORY: The patient has been living at home since she refused alf placement at her hospital discharge 2 days ago. She is a former smoker. She denies alcohol, tobacco or illicit drug use. FAMILY HISTORY: Reviewed and noncontributory. REVIEW OF SYSTEMS: A 10-point review of systems was performed and is negative except as per HPI. PHYSICAL EXAMINATION: VITAL SIGNS: Temperature 36.9, blood pressure 162/71, heart rate 89, respiratory rate 24. She is 94% on her baseline 3 L of oxygen. GENERAL: The patient is awake, alert, and oriented. In no acute distress. HEENT: Head is atraumatic, normocephalic. Pupils equal, round, and react to light. Extraocular muscles are intact. Oropharynx is clear. Mucous membranes are moist. NECK: Supple. There is no JVD. HEART: Regular rate and rhythm. LUNGS: Reveal decreased air movement but no significant wheezing or rhonchi. ABDOMEN: Soft, nondistended. There is mild epigastric tenderness to palpation. No rebound, rigidity or guarding. Normoactive bowel sounds are present. EXTREMITIES: Without cyanosis, clubbing, or edema. NEUROLOGIC: Grossly nonfocal. LABORATORY DATA: CBC reveals a white count of 10.2, hemoglobin 10.5, platelets are 457. Complete metabolic panel remarkable for potassium of 3.3, creatinine is normal at 0.8, alkaline phosphatase 129. Lipase is normal. Troponin is negative. EKG reveals normal sinus rhythm with a right bundle branch block. Repeat EKG shows similar findings. Abdomen x-ray is negative for free air and shows a nonspecific bowel gas pattern. Hip xray reveals left acetabular fracture ASSESSMENT AND PLAN: The patient is a 81-year-old female history of oxygen- dependent chronic obstructive pulmonary disease, hypothyroidism and recent revision of left total hip arthroplasty, who returns to the hospital again with nausea and pain symptoms. Hip xray obtained on admission. 1. Acetabular fracture left hip. She denies any recent falls. Reviewed hip xray with Dr. Romeo, orthopedist. She had a revision here 10/21/2016, then returned with another dislocation 11/01. At that point, she was transferred to the [facility] and had a revision done there. Dr. Romeo recommends she return to her orthopedist at the [facility] for ongoing care. Touchdown weightbearing for now. She may warrant transfer in the am vs outpt follow up with [facility]. 2. Epigastric pain with nausea and vomiting. She is mostly just complaining of nausea at this time. I query if this could be related to her Percocet use as she acknowledges other opiates make her sick. She also has a history of peptic ulcer disease. There is no free air seen on her initial plain film. Her abdominal exam is reassuring at this time. We will start her on a PPI and hold NSAIDs. Provide supportive care. Should her symptoms worsen, would consider an abdomen CT. 3. Chronic hypoxemic respiratory failure secondary to chronic obstructive pulmonary disease. There is no evidence of an acute exacerbation. She is on her baseline oxygen requirement of 3 L per minute. We will continue her nebulizers, Advair and O2. 4. Hypothyroidism. She had her dose adjusted at hospital discharge on October 21. We will recheck a TSH. Make dosing adjustments as indicated. 5. History of heart block, status post pacemaker. 6. Chest pain. This was fleeting. Has not persisted. Her initial troponin is negative. Will cycle her troponins. Her EKG is difficult to interpret given her persistent right bundle branch block. Consider risk stratification prior to discharge. 7. Hypokalemia. We will replace and recheck in the morning. 8. Code status: Patient is full code. 9. Deep venous thrombosis prophylaxis: Lovenox. DISPOSITION: Patient is admitted to inpatient status as she will likely require greater than 48 hours hospitalization for acute pain control and management of her nausea and vomiting. PT/OT and Case Management consults are requested. She may require placement. /[id number]/MODL MTDD
[2016-11-27] MEDS: FLUTICASONE/SALMETER 500/50MCG DISKUS IH SCH (21:43)
[2016-11-27] MEDS ORDERED: HYDROmorphONE/DILAUDID 1 MG/ML SYR IVP PRN (21:55)
[2016-11-27] MEDS: NS W/ 20 KCl/L 1,000 ML IV SCH (22:08)
[2016-11-27] MEDS: PANTOPRAZOLE SODIUM 40 MG TAB PO SCH (22:08)
[2016-11-28] MEDS ORDERED: LEVOTHYROXINE 50 MCG TAB PO SCH (06:00)
[2016-11-28] MEDS: ONDANSETRON DISINTEGRATING 4 MG TAB PO PRN (06:11)
[2016-11-28] MEDS: OXYCODONE/APAP 5/325 TAB PO PRN ×4 (06:12→18:54)
[2016-11-28 06:43] LABS: % IMMATURE GRANULYOCYTES 0.4 % (0.0-1.1); ABSOLUTE IMMATURE GRANULOCYTES 0.03 10^3/uL (0.00-0.10); ADD DIFF? NO; ADD MORPH? NO; ADD SCAN? NO; ATYPICAL LYMPHOCYTE FLAG 30 (0-99); FRAGMENT RBC FLAG 0 (0-99); HEMATOCRIT 32.8 % (38.0-47.0); HEMOGLOBIN 9.7 g/dL (12.6-16.3); LEFT SHIFT FLG 0 (0-99); LIPEMIA HEMOLYSIS FLAG 70 (0-99); MEAN CELL HEMOGLOBIN 26.4 pg (27.9-34.1); MEAN CELL HEMOGLOBIN CONCENTR. 29.6 g/dL (32.4-36.7); MEAN CELL VOLUME 89.4 fL (81.5-99.8); MEAN PLATELET VOLUME 8.8 fL (8.7-11.7); PLATELET CLUMPS FLAG 10 (0-99); PLATELET COUNT 395 10^3/uL (150-400); RED BLOOD CELL COUNT 3.67 10^6/uL (4.18-5.33); RED CELL DISTRIBUTION WIDTH 17.1 % (11.5-15.2)
[2016-11-28 07:03] LABS: ANION GAP 6 mEq/L (8-16); CALCIUM 8.5 mg/dL (8.5-10.4); CARBON DIOXIDE 29 mEq/l (22-31); CHLORIDE 106 mEq/L (97-110); CREATININE 0.7 mg/dL (0.6-1.0); GLOMERULAR FILTRATION RATE > 60; GLUCOSE 76 mg/dL (70-100); SODIUM 141 mEq/L (134-144)
[2016-11-28] MEDS: DOCUSATE SODIUM 100 MG CAP PO SCH (08:22)
[2016-11-28] MEDS: GABAPENTIN 300 MG CAP PO SCH ×2 (08:24→18:18)
[2016-11-28] MEDS: PANTOPRAZOLE SODIUM 40 MG TAB PO SCH (08:24)
[2016-11-28] MEDS ORDERED: ENOXAPARIN 40 MG/0.4 ML SYR SC SCH (09:00)
[2016-11-28] MEDS ORDERED: buPROPion XL 150 MG TAB PO SCH (09:00)
[2016-11-28] MEDS ORDERED: CHOLECALCIFEROL VIT D3 1,000 UNITS TAB PO SCH (09:00)
[2016-11-28] MEDS: FLUTICASONE/SALMETER 500/50MCG DISKUS IH SCH (10:28)
[2016-11-28 11:11] VITALS: PULSE 81
[2016-11-28] MEDS: IBUPROFEN 600 MG TAB PO SCH ×2 (12:10→18:19)
[2016-11-28] MEDS: NS W/ 20 KCl/L 1,000 ML IV SCH (12:15)
--- NOTE | 2016-11-28 14:28 | HOSPPROG ---
Hospitalist Progress Note Assessment/Plan: 81y female with hip pain. This is my first encounter. Chart reviewed. D/W Dr Medina, Dr Horner, CM. #Acute fx needs to go to [facility] under the care of Dr Frank he is her last orthopod to operate on her recs here are to return to [facility] #Hx of staph epi infection in hip pt suppose to be on IV vanco through December [address] Horner pt stopped abx herself cancelled appt with [facility] suppressive abx if not transfered to then have ID consult D/W Dr Medina #COPD at baseline #Hypokalemia replace #N/V resolved #Hypothry cont meds #CP none #Dispo transfer to needs ortho there will need SNF [facility] for now D/W CM Subjective: Frustrated. Having some pain with movement. No other issues. Objective: Vital Signs Temp Pulse Resp BP Pulse Ox 36.8 C 81 19 124/52 H 93 11/28/16 11:10 11/28/16 11:38 11/28/16 11:38 11/28/16 11:10 11/28/16 11:38 Laboratory Results 11/28/16 06:20 11/28/16 06:20 11/27/16 11/28/16 11/29/16 05:59 05:59 05:59 Intake Total 1999 Balance 1999 - Physical Exam Constitutional: appears nourished, chronically ill appearing, obese Eyes: PERRL, anicteric sclera, EOMI Ears, Nose, Mouth, Throat: moist mucous membranes, hearing normal, ears appear normal Cardiovascular: No JVD, No tachycardia, No edema Respiratory: no respiratory distress, no rales or rhonchi, reduced air movement Gastrointestinal: No tenderness, No ascites, No guarding Skin: warm, normal color, No erythema Musculoskeletal: pain with ROM, muscular tenderness, generalized weakness Neurologic: AAOx3 Psychiatric: not anxious, not encephalopathic, thought process linear, poor insight, poor judgement ICD10 Worksheet Patient Problems: Problems Problem Status Onset Gastric ulcer with perforation Acute Back pain Acute Hypoxemia Acute Osteoporosis Acute S/P hip replacement Acute Generalized weakness Acute Hip dislocation, left Acute Dyspnea Acute Syncope Acute Complete heart block Acute Chest discomfort Acute Dyspnea Acute Chronic left hip pain Acute Nausea Acute Abdominal pain Acute Abdominal pain Acute
[2016-11-28 15:36] VITALS: BP 116/67; RESP 18; TEMP 98.8; O2SAT 97
--- NOTE | 2016-11-28 15:49 | PDIAF ---
- Diagnosis Diagnosis: hip fx Code Status: Full Code - Medication Management Discharge Medications: Medications to Continue on Transfer Ascorbic Acid [Vitamin C 500 mg (*)] 1,000 mg PO BID 08/26/13 [Last Taken ] Calcium Carbonate [Tums 500MG (*)] 1,000 - 1,500 mg PO DAILY PRN 08/26/13 [Last Taken 08/18/16] Sennosides [Senokot] 2 each PO HS 08/26/13 [Last Taken 11/21/16] Alendronate Sodium [Fosamax 70 MG (*)] 70 mg PO BERNAL@07 03/29/16 [Last Taken 11/16] Gabapentin [Neurontin 300 MG (*)] 300 mg PO BIDMEAL 03/29/16 [Last Taken 18:00] buPROPion XL [Wellbutrin 150mg XL] 150 mg PO DAILY 03/29/16 [Last Taken 11/21/16 ] diphenhydrAMINE [Benadryl 25 MG (*)] 25 mg PO 05/17/16 [Last Taken 11/21/16] Albuterol [Ventolin Hfa Inhaler] 2 puffs IH QID PRN 05/26/16 [Last Taken ] Fluticasone Nasal [Flonase Nasal [place]] 1 sprays EACHNARE DAILY PRN 07/20/16 [ Last Taken 08/18/16] Gabapentin [Neurontin 300 MG (*)] 600 mg PO HS 07/20/16 [Last Taken 10/19/16] Dicyclomine HCl 20 mg PO QID PRN 07/25/16 [Last Taken 11/22/16] Cholecalciferol Vit D3 [Vitamin D3 (*)] 2,000 units PO DAILY 08/11/16 [Last Taken 11/21/16] Ipratropium/Albuterol [Duoneb (*)] 3 ml IH QID PRN 08/11/16 [Last Taken 11/21/16 ] Promethazine HCl [Phenergan 25mg (*)] 25 mg PO Q8H PRN 08/11/16 [Last Taken 03/31] Levothyroxine [Synthroid 50 mcg (*)] 50 mcg PO DAILY06 09/24/16 [Last Taken 03/01] Nystatin Powder [Mycostatin Powder] 1 yoan TP BID PRN 10/21/16 [Last Taken Unknown] Fluticasone/Salmeter 500/50Mcg [Advair 500/50 (*)] 1 puffs IH BID 11/22/16 [ Last Taken 11/21/16] HYDROcodone BIT/HOMATROP ME-BR [HYDROCODONE-HOMATROPINE SYRUP] 2.5 ml PO Q6 PRN 11/22/16 [Last Taken Unknown] Ibuprofen [Motrin (*)] 200 - 400 mg PO Q4HRS WHILE AWAKE PRN 11/22/16 [Last Taken 11/21/16] oxyCODONE/APAP 5/325 [Percocet 5/325 (*)] 1 - 2 tab PO Q4WA PRN 11/22/16 [Last Taken 11/21/16] Acetaminophen [Tylenol 325mg (*)] 650 mg PO Q4HRS PRN #0 tab 11/28/16 [Last Taken Unknown] Alteplase [Cathflo Activase 2 mg (*)] 2 mg IVP .FOR PICC PRN #0 vial 11/28/16 [ Last Taken Unknown] Docusate Sodium [Colace 100 MG (*)] 100 mg PO BID cap 11/28/16 [Last Taken Unknown] Enoxaparin [Lovenox 40 MG (*)] 40 mg SC DAILY syr 11/28/16 [Last Taken Unknown] Pantoprazole Sodium [Protonix 40mg (*)] 40 mg PO DAILY tab 11/28/16 [Last Taken Unknown] Polyethylene Glycol 3350 [Miralax 17 gm (*)] 17 gm PO DAILY PRN #0 pkt 11/28/16 [Last Taken Unknown] Discharge Medications: Refer to the Discharge Home Medication list for PRN reason. PICC Care - Routine: Yes - Orders Services needed: Registered Nurse, Physical Therapy Diet Recommendation: no restrictions on diet - Follow Up Care Current Providers and Referrals: Alexis Ferrara MD [Primary Care Provider] - As per Instructions
[2016-11-28 15:51] LABS: COLOR YELLOW; LEUKOCYTE ESTERASE,URINE 3+ (NEGATIVE); NITRITE,URINE NEGATIVE (NEGATIVE)
[2016-11-28 15:56] LABS: MUCUS TRACE /lpf (NONE-1+); WBC,URINE 25-50 /hpf (0-3)
--- NOTE | 2016-11-29 09:43 | GDS ---
[f rep st] DISCHARGE SUMMARY DISCHARGE DIAGNOSES: 1. Acute left acetabular fracture. 2. History of staphylococcus epi infection in the left hip. 3. History of chronic obstructive pulmonary disease. 4. History of hypothyroidism. 5. Nausea and vomiting. HOSPITAL COURSE: The patient presented to the emergency room with complaints of left-sided hip pain , as well as nausea and vomiting. She was evaluated and diagnosed with: 1. Acute acetabular fracture. During this hospitalization, a hip x-ray was performed, noting acute fracture. The patient did receive a consultation from Orthopedics. It was recommended that she fo llow up with her primary orthopedist at [facility], Dr. Frank. She has been nonweightbearing in the interim awaiting further evaluation by Dr. Frank upon transfer. 2. Nausea and vomiting. This has resolved with hydration. 3. History of staphylococcus epi infection in the left hip. The patient is supposed to be on 1 g o f vancomycin IV q.12 hours. She has self discontinued this medication. I have discussed with her i nfectious disease doctor at the [facility], and it is recommended that the patient continue IV vanco mycin through December 15, with followup suppressive lifelong antibiotic therapy. The patient is refus ing IV antibiotics at this time. We will defer to infectious disease. 4. History of COPD. She is at her baseline, 2-3 L of oxygen requirements at the time of transfer. DISPOSITION: The patient will be transferred to [facility] for further evaluation and recommendatio ns by her primary orthopedist, Dr. Frank. DISCHARGE MEDICATIONS: Please refer to EMR form. FOLLOWUP: Will be as indicated. I have spent greater than 35 minutes in the care, coordination, and management of the patient's disc harge. /[id number]/MODL
[2016-11-30] MEDS ORDERED: ALENDRONATE SODIUM 70 MG TAB PO SCH (07:00)
--- NOTE | 2016-12-02 11:09 | PQFORM ---
PHYSICIAN QUERY FORM Needs Your Response This query form is being sent to you to assure this patient record is coded properly. Please respond to the question below: SUPERINTENDENT FACTORY QUESTION: Dr. Caceres, This patient is diagnosed as having an acute acetabular fracture of the left hip after recent revision of her arthroplasty. Could this fracture be further defined as: Acute traumatic fracture Pathological fracture Intraoperative fracture during previous revision or reduction of dislocation ____X____ Other fracture Thank you, DANIEL Cisneros HIM Coding INSTRUCTIONS FOR RESPONSE: Answer question by clicking on the "Edit Document" button. Move cursor to area below the stars. When complete, hit "Save." Click on the "Sign" button, then click "Sign" again. Type in your PIN and hit "Enter." MTDD
== END 2016-11-28 19:06 | disposition short-term general hospital (02) | DRG 560 ==
LOC: F3E 18:24
PROVIDERS: ADMIT Hospitalist; ATTEND Internal Medicine
DX: M97.02XA Periprosthetic fracture around internal prosthetic left hip joint, initial encounter (principal); J96.11 Chronic respiratory failure with hypoxia; M48.50XA Collapsed vertebra, not elsewhere classified, site unspecified, initial encounter for fracture; R10.13 Epigastric pain; R11.2 Nausea with vomiting, unspecified; T40.2X5A Adverse effect of other opioids, initial encounter; J44.9 Chronic obstructive pulmonary disease, unspecified; G89.29 Other chronic pain; M48.00 Spinal stenosis, site unspecified; E87.6 Hypokalemia; E03.9 Hypothyroidism, unspecified; R07.9 Chest pain, unspecified; K27.9 Peptic ulcer, site unspecified, unspecified as acute or chronic, without hemorrhage or perforation; Z95.0 Presence of cardiac pacemaker
CPT/HCPCS: 96374; 97165-GO; G8987-GO-CK; G8988-GO-CJ; J1200; J1650; J2550; J2997; J3010

== ENCOUNTER 2016-12-10 21:14 | Observation (INO) | payer OTHER, MEDICAID ==
--- NOTE | 2016-12-10 21:52 | EDPHY ---
H & P Stated Complaint: SOB, productive cough, nausea. nelsy Goncalves & saira by EMS Time Seen by Provider: 12/10/16 21:44 HPI/ROS: HPI CHIEF COMPLAINT: Shortness of breath, cough, COPD exacerbation, oxygen concentrator broke at home HISTORY OF PRESENT ILLNESS: This patient is a 81-year-old female who I am very familiar with, significant past medical history for COPD, failure to thrive, generalized weakness, on 3 L nasal cannula, presents to the emergency room by EMS for generalized weakness, worsening shortness of breath, and states that her oxygen concentrator broke tonight around 4:00 p.m.. She was unable to get another concentrated delivered. She was unable to obtain anoxic concentrated tonight and was unable to be on her baseline 3 L nasal cannula. This caused her to come to the emergency room due to worsening shortness of breath. Additionally she tells me that she has pain all over body chronically, it is worse in her knees. She does tell me she had a recent left hip revision done at [facility] for an infected hip. She is currently taking p.o. linozolid. She tells me that she thinks she has been nauseous from this. She tells me she has been very nauseous without chest pain. Past Medical History: COPD, recent acetabular fracture, hip infection, recent hospitalization at [facility] where her primary orthopedic doctor is, failure to thrive, perforated ulcer, anemia Past Surgical History: T9 kyphoplasty, bilateral hip replacements removal of hardware, appendectomy Social History: Lives independently, [place], oxygen dependent Family History: Noncontributory ROS REVIEW OF SYSTEMS: A comprehensive 10 point review of systems is otherwise negative aside from elements mentioned in the history of present illness. Exam Constitutional appears frail, no respiratory distress, triage nursing summary reviewed, vital signs reviewed, awake/alert. Eyes normal conjunctivae and sclera, EOMI, PERRLA. HENT normal inspection, atraumatic, moist mucus membranes, no epistaxis, neck supple/ no meningismus, no raccoon eyes. Respiratory decreased breath sounds bilaterally, faint wheezing bilaterally. Cardiovascular rate normal, regular rhythm, no murmur, no edema, distal pulses normal. Gastrointestinal soft, non-tender, no rebound, no guarding, normal bowel sounds, no distension, no pulsatile mass. Genitourinary no CVA tenderness. Musculoskeletal no midline vertebral tenderness, full range of motion, no calf swelling, no tenderness of extremities, no meningismus, good pulses, neurovascularly intact. Skin left hip incision clean dry and intact, pink, warm, & dry, no rash, skin atraumatic. Neurologic awake, alert and oriented x 3, AAOx3, moves all 4 extremities equally, motor intact, sensory intact, CN II-XII intact, normal cerebellar, normal vision, normal speech. Psychiatric normal mood/affect. Heme/Lymph/Immune no lymphadenopathy. Differential Diagnosis: Includes but is not limited to in a particular order, COPD exacerbation, need for oxygen given oxygen concentrator broke, pneumonia, dehydration, electrolyte disturbance, failure to thrive Medical Decision Making: This patient had a chest x-ray, blood work, full athletic monitor, EKG, gentle IV hydration, DuoNeb breathing treatment. We will re-evaluate. Re-evaluation: EKG interpretation by me on record in [facility] [employer] system. Impression time of EKG 08/04/2022, right bundle-branch block present. EKG is very similar morphology from previous EKG 11/27/2016 ED x-ray chest two view: Unchanged from previous chest x-ray. 2257: Patient is unable to go back home tonight as her oxygen concentrator is broken. She is oxygen dependent. She will need admission to the hospital into wheezing get appropriate oxygen set up at home. Also patient fell as she was having a COPD exacerbation she will be admitted for this as well. I did give her DuoNeb breathing treatment here in the emergency room. I do not feel that she needs steroids or antibiotics at this time. Dr. Jimenez Accepts. Source: Patient - Personal History Current Tetanus/Diphtheria Vaccine: Yes Current Tetanus Diphtheria and Acellular Pertussis (TDAP): Yes Tetanus Vaccine Date: 2014 - Medical/Surgical History Hx Asthma: Yes Hx Chronic Respiratory Disease: Yes Hx Diabetes: No Hx Cardiac Disease: Yes Hx Renal Disease: No Hx Cirrhosis: No Hx Alcoholism: No Hx HIV/AIDS: No Hx Splenectomy or Spleen Trauma: No Other PMH: appy, hypothyroid, arthritis, copd, tanja hip replacements,HIP REVISION x5 (last October 2016, prolapsed bladder, "kidney stone surgery",. spinal stenosis, chronic pain, PPM, scoliosis, Posterior hip dislocation x3. T9 compression fracture with kyphoplasty, Surgery on T9 vertebrae, bilateral cataracts - Social History Smoking Status: Former smoker Constitutional: Initial Vital Signs Temperature (C) 36.6 C 12/10/16 21:45 Heart Rate 98 12/10/16 21:45 Respiratory Rate 16 12/10/16 21:45 Blood Pressure 143/87 H 12/10/16 21:45 O2 Sat (%) 95 12/10/16 21:45 O2 Delivery Mode Nasal Cannula O2 (L/minute) 2 Allergies/Adverse Reactions: celecoxib [From Celebrex] Allergy (Severe, Verified 12/10/16 21:40) Weight gain, Fatigue, Increased Pain duloxetine HCl [From Cymbalta] Allergy (Severe, Verified 12/10/16 21:40) Vomiting levofloxacin [From Levaquin] Allergy (Severe, Verified 12/10/16 21:40) Swelling/neck,face,throat sulfamethoxazole [From Septra] Allergy (Severe, Verified 12/10/16 21:40) Nausea Vomiting aspirin Allergy (Intermediate, Verified 12/10/16 21:40) stomach pain cephalexin monohydrate [From Keflex] Allergy (Intermediate, Verified 12/10/16 21 :40) Stomach Pain clarithromycin [From Biaxin] Allergy (Intermediate, Verified 12/10/16 21:40) Stomach Pain codeine [Codeine] Allergy (Intermediate, Verified 12/10/16 21:40) Nausea Vomiting hydrocodone bitartrate [From Vicodin] Allergy (Intermediate, Verified 12/10/16 21:40) Nausea Vomiting orphenadrine Allergy (Intermediate, Verified 12/10/16 21:40) Stomach pain tetracycline [Tetracycline] Allergy (Intermediate, Verified 12/10/16 21:40) Stomach Pain amoxicillin trihydrate [From Augmentin] Allergy (Verified 12/10/16 21:40) ciprofloxacin [From Cipro] Allergy (Verified 12/10/16 21:40) linezolid [From Zyvox] Allergy (Verified 12/10/16 21:40) potassium clavulanate [From Augmentin] Allergy (Verified 12/10/16 21:40) shrimp Allergy (Verified 12/10/16 21:40) ORPHENGESIC Allergy (Intermediate, Uncoded 11/22/16 10:24) Stomach Pain Terpin hydrate Allergy (Intermediate, Uncoded 11/22/16 10:24) Stomach pain Home Medications: Medication Instructions Recorded Ascorbic Acid [Vitamin C 500 mg 1,000 mg PO BID 08/26/13 (*)] Calcium Carbonate [Tums 500MG (*)] 1,000 - 1,500 mg PO DAILY PRN 08/26/13 Sennosides [Senokot] 2 each PO HS 08/26/13 Alendronate Sodium [Fosamax 70 MG 70 mg PO BERNAL@07 03/29/16 (*)] Gabapentin [Neurontin 300 MG (*)] 300 mg PO BIDMEAL 03/29/16 buPROPion XL [Wellbutrin 150mg XL] 150 mg PO DAILY 03/29/16 diphenhydrAMINE [Benadryl 25 MG 25 mg PO HS 05/17/16 (*)] Albuterol [Ventolin Hfa Inhaler] 2 puffs IH QID PRN 05/26/16 Fluticasone Nasal [Flonase Nasal 1 sprays EACHNARE DAILY PRN 07/20/16 [place]] Gabapentin [Neurontin 300 MG (*)] 600 mg PO HS 07/20/16 Dicyclomine HCl 20 mg PO QID PRN 07/25/16 Cholecalciferol Vit D3 [Vitamin D3 2,000 units PO DAILY 08/11/16 (*)] Ipratropium/Albuterol [Duoneb (*)] 3 ml IH QID PRN 08/11/16 Promethazine HCl [Phenergan 25mg 25 mg PO Q8H PRN 08/11/16 (*)] Levothyroxine [Synthroid 50 mcg 50 mcg PO DAILY06 09/24/16 (*)] Nystatin Powder [Mycostatin Powder] 1 yoan TP BID PRN 10/21/16 Fluticasone/Salmeter 500/50Mcg 1 puffs IH BID 11/22/16 [Advair 500/50 (*)] HYDROcodone BIT/HOMATROP ME-BR 2.5 ml PO Q6 PRN 11/22/16 [HYDROCODONE-HOMATROPINE SYRUP] Ibuprofen [Motrin (*)] 200 - 400 mg PO Q4HRS WHILE AWAKE 11/22/16 PRN oxyCODONE/APAP 5/325 [Percocet 1 - 2 tab PO Q4WA PRN 11/22/16 5/325 (*)] Acetaminophen [Tylenol 325mg (*)] 650 mg PO Q4HRS PRN #0 tab 11/28/16 Alteplase [Cathflo Activase 2 mg 2 mg IVP .FOR PICC PRN #0 vial 11/28/16 (*)] Docusate Sodium [Colace 100 MG (*)] 100 mg PO BID cap 11/28/16 Enoxaparin [Lovenox 40 MG (*)] 40 mg SC DAILY syr 11/28/16 Pantoprazole Sodium [Protonix 40mg 40 mg PO DAILY tab 11/28/16 (*)] Polyethylene Glycol 3350 [Miralax 17 gm PO DAILY PRN #0 pkt 11/28/16 17 gm (*)] Medical Decision Making - Diagnostics Imaging Results: Imaging Impressions Chest X-Ray 12/10/16 21:33 Impression: Stable. Nothing acute identified. - Data Points Laboratory Results: Laboratory Results 12/10/16 21:05 12/10/16 21:05 12/10/16 12/10/16 12/10/16 22:20 21:05 21:05 WBC RBC Hgb Hct MCV MCH MCHC RDW Plt Count MPV Neut % (Auto) Lymph % (Auto) [place] % (Auto) Eos % (Auto) Baso % (Auto) Nucleat RBC Rel Count Absolute Neuts (auto) Absolute Lymphs (auto) Absolute Monos (auto) Absolute Eos (auto) Absolute Basos (auto) Absolute Nucleated RBC Immature Gran % Immature Gran # PT 14.2 SEC SEC (12.0-15.0) INR 1.11 (0.83-1.16) APTT 30.0 SEC SEC (23.0-38.0) VBG Lactic Acid 1.5 mmol/L mmol/L (0.7-2.1) Sodium 137 mEq/L mEq/L (134-144) Potassium 3.2 mEq/L L mEq/L (3.5-5.2) Chloride 101 mEq/L mEq/L (97-110) Carbon Dioxide 24 mEq/l mEq/l (22-31) Anion Gap 12 mEq/L mEq/L (8-16) BUN 10 mg/dL mg/dL (7-23) Creatinine 0.8 mg/dL mg/dL (0.6-1.0) Estimated GFR > 60 Glucose 73 mg/dL mg/dL (70-100) Calcium 9.9 mg/dL mg/dL (8.5-10.4) Total Bilirubin 0.6 mg/dL mg/dL (0.1-1.4) Conjugated Bilirubin 0.5 mg/dL mg/dL (0.0-0.5) Unconjugated Bilirubin 0.1 mg/dL mg/dL (0.0-1.1) AST 22 IU/L IU/L (14-46) ALT 26 IU/L IU/L (9-52) Alkaline Phosphatase 117 IU/L IU/L (38-126) Troponin I < 0.012 ng/mL ng/mL (0-0.034) NT-Pro-B Natriuret Pep 655 pg/mL H pg/mL (0-450) Total Protein 6.9 g/dL g/dL (6.3-8.2) Albumin 3.3 g/dL L g/dL (3.5-5.0) 12/10/16 21:05 WBC 9.07 10^3/uL 10^3/uL (3.80-9.50) RBC 3.90 10^6/uL L 10^6/uL (4.18-5.33) Hgb 10.4 g/dL L g/dL (12.6-16.3) Hct 34.2 % L % (38.0-47.0) MCV 87.7 fL fL (81.5-99.8) MCH 26.7 pg L pg (27.9-34.1) MCHC 30.4 g/dL L g/dL (32.4-36.7) RDW 18.1 % H % (11.5-15.2) Plt Count 321 10^3/uL 10^3/uL (150-400) MPV 9.5 fL fL (8.7-11.7) Neut % (Auto) 62.0 % % (39.3-74.2) Lymph % (Auto) 20.6 % % (15.0-45.0) [place] % (Auto) 10.7 % % (4.5-13.0) Eos % (Auto) 6.1 % % (0.6-7.6) Baso % (Auto) 0.3 % % (0.3-1.7) Nucleat RBC Rel Count 0.0 % % (0.0-0.2) Absolute Neuts (auto) 5.62 10^3/uL 10^3/uL (1.70-6.50) Absolute Lymphs (auto) 1.87 10^3/uL 10^3/uL (1.00-3.00) Absolute Monos (auto) 0.97 10^3/uL H 10^3/uL (0.30-0.80) Absolute Eos (auto) 0.55 10^3/uL H 10^3/uL (0.03-0.40) Absolute Basos (auto) 0.03 10^3/uL 10^3/uL (0.02-0.10) Absolute Nucleated RBC 0.00 10^3/uL 10^3/uL (0-0.01) Immature Gran % 0.3 % % (0.0-1.1) Immature Gran # 0.03 10^3/uL 10^3/uL (0.00-0.10) PT INR APTT VBG Lactic Acid Sodium Potassium Chloride Carbon Dioxide Anion Gap BUN Creatinine Estimated GFR Glucose Calcium Total Bilirubin Conjugated Bilirubin Unconjugated Bilirubin AST ALT Alkaline Phosphatase Troponin I NT-Pro-B Natriuret Pep Total Protein Albumin Medications Given: Discontinued Medications Albuterol/Ipratropium (Duoneb) 3 ml IH EDNOW ONE Stop: 12/10/16 22:05 Last Admin: 12/10/16 22:30 Dose: 3 ml Sodium Chloride (Ns) 500 mls @ 1,000 mls/hr IV ONCE ONE PRN Reason: Protocol Stop: 12/10/16 22:33 Last Admin: 12/10/16 22:20 Dose: 500 mls Oxycodone/Acetaminophen (Percocet 5/325) 1 tab PO EDNOW ONE Stop: 12/10/16 22:43 Last Admin: 12/10/16 22:45 Dose: 1 tab Departure - Departure Disposition: [facility] Inpatient Acute Clinical Impression: COPD (chronic obstructive pulmonary disease) Qualifiers: COPD type: unspecified COPD Qualified Code(s): J44.9 - Chronic obstructive pulmonary disease, unspecified Condition: Fair
[2016-12-10] MEDS ORDERED: NS 500 ML IV ONE (22:04)
[2016-12-10] MEDS ORDERED: IPRATROPIUM/ALBUTEROL 3 ML DEYVIAL IH ONE (22:04)
[2016-12-10 22:10] LABS: % IMMATURE GRANULYOCYTES 0.3 % (0.0-1.1); ABSOLUTE IMMATURE GRANULOCYTES 0.03 10^3/uL (0.00-0.10); ADD DIFF? NO; ADD MORPH? NO; ADD SCAN? NO; ATYPICAL LYMPHOCYTE FLAG 0 (0-99); FRAGMENT RBC FLAG 0 (0-99); HEMATOCRIT 34.2 % (38.0-47.0); HEMOGLOBIN 10.4 g/dL (12.6-16.3); LEFT SHIFT FLG 0 (0-99); LIPEMIA HEMOLYSIS FLAG 80 (0-99); MEAN CELL HEMOGLOBIN 26.7 pg (27.9-34.1); MEAN CELL HEMOGLOBIN CONCENTR. 30.4 g/dL (32.4-36.7); MEAN CELL VOLUME 87.7 fL (81.5-99.8); MEAN PLATELET VOLUME 9.5 fL (8.7-11.7); PLATELET CLUMPS FLAG 20 (0-99); PLATELET COUNT 321 10^3/uL (150-400); RED CELL DISTRIBUTION WIDTH 18.1 % (11.5-15.2)
[2016-12-10 22:15] LABS: INR 1.11 (0.83-1.16); PROTIME(PATIENT) 14.2 SEC (12.0-15.0)
[2016-12-10 22:21] LABS: ALANINE AMINOTRANSFERASE 26 IU/L (9-52); ALBUMIN 3.3 g/dL (3.5-5.0); ALKALINE PHOSPHATASE 117 IU/L (38-126); ANION GAP 12 mEq/L (8-16); ASPARTATE AMINOTRANSFERASE 22 IU/L (14-46); BILIRUBIN,TOTAL 0.6 mg/dL (0.1-1.4); BILIRUBIN-CONJUGATED 0.5 mg/dL (0.0-0.5); BILIRUBIN-UNCONJUGATED 0.1 mg/dL (0.0-1.1); CALCIUM 9.9 mg/dL (8.5-10.4); CARBON DIOXIDE 24 mEq/l (22-31); CHLORIDE 101 mEq/L (97-110); CREATININE 0.8 mg/dL (0.6-1.0); GLOMERULAR FILTRATION RATE > 60; GLUCOSE 73 mg/dL (70-100); POTASSIUM 3.2 mEq/L (3.5-5.2); SODIUM 137 mEq/L (134-144); TOTAL PROTEIN 6.9 g/dL (6.3-8.2)
--- NOTE | 2016-12-10 22:25 | CPEKG ---
Heart Rate: 101 RR Interval: 594 P-R Interval: 184 QRSD Interval: 124 QT Interval: 368 QTC Interval: 477 P [place]: 26 QRS [place]: 34 T Wave [place]: -24 EKG Severity - ABNORMAL ECG - EKG Impression: SINUS TACHYCARDIA EKG Impression: RIGHT BUNDLE BRANCH BLOCK Electronically Signed By: Rogerio Frances 11-Dec-2016 09:48:42
[2016-12-10 22:32] LABS: TROPONIN I < 0.012 ng/mL (0-0.034)
[2016-12-10] MEDS ORDERED: OXYCODONE/APAP 5/325 TAB PO ONE (22:42)
[2016-12-10] MEDS ORDERED: ONDANSETRON 4 MG/2 ML VIAL IVP PRN (23:27)
[2016-12-10] MEDS ORDERED: ONDANSETRON DISINTEGRATING 4 MG TAB PO PRN (23:27)
[2016-12-10] MEDS: oxyCODONE IR 5 MG TAB PO PRN (23:42)
[2016-12-10] MEDS: PROMETHAZINE HCL 25 MG/ML INJ IVP PRN (23:43)
[2016-12-11] MEDS: PROMETHAZINE HCL 25 MG/ML INJ IVP PRN ×2 (00:44→08:06)
[2016-12-11] MEDS: oxyCODONE IR 5 MG TAB PO PRN ×4 (04:06→17:07)
[2016-12-11] MEDS ORDERED: NITROGLYCERIN 0.4 MG BTL SL ONE (08:18)
--- NOTE | 2016-12-11 08:47 | CPEKG ---
Heart Rate: 89 RR Interval: 674 P-R Interval: 180 QRSD Interval: 126 QT Interval: 388 QTC Interval: 473 P [place]: 27 QRS [place]: 44 T Wave [place]: -31 EKG Severity - ABNORMAL ECG - EKG Impression: SINUS RHYTHM EKG Impression: RIGHT BUNDLE BRANCH BLOCK Electronically Signed By: Rogerio Frances 11-Dec-2016 09:49:00
--- NOTE | 2016-12-11 08:54 | GHP ---
[f rep st] HISTORY AND PHYSICAL DATE OF ADMISSION: 12/10/2016 CHIEF COMPLAINT: Oxygen concentrator broke, nausea. HISTORY OF PRESENT ILLNESS: This is a 81-year-old female, who was admitted to the hospital multiple times. She has a history of COPD and is oxygen dependent. She also has a history of previous left hip arthroplasty with recurrent dislocations that was revised in October of this year. She is currentl y on therapy for MRSA infection, but I am unclear of the details of this as it was at [facility]. S he is supposed to be on linezolid and said that she will finish this up tomorrow. She states that h er oxygen concentrator broke and called [facility]. They said they would come out, but they did not, and thus, she called the paramedics. She is also complaining of significant nausea which she attribute s to her medications. She is now currently refusing to take any further linezolid. She does have c hronic left hip pain. She says she is a little bit short of breath as well but no cough. REVIEW OF SYSTEMS: 10-point review of systems was obtained, other than stated above is negative. PAST MEDICAL HISTORY: 1. COPD with 3 L oxygen dependent. 2. Left hip arthroplasty with revision and probable MRSA infection. 3. History of complete heart block, status post pacemaker. 4. Chronic pain. 5. History of peptic ulcer disease. MEDICATIONS: Reviewed. SOCIAL HISTORY: She does live independently. She is a former smoker. FAMILY HISTORY: Reviewed, noncontributory. PHYSICAL EXAMINATION: VITAL SIGNS: Afebrile, blood pressure is 154/102, heart rate 96, oxygen satu ration 94% on 3 L. GENERAL: Patient is well developed, no apparent distress. HEENT: Nonicteric s clerae. Extraocular movements intact. Moist mucous membranes. NECK: Supple. No thyromegaly. LEONILA NGS: Good effort. Decreased breath sounds but clear. No wheezing. CARDIOVASCULAR: Regular rate and rhythm. No murmurs, rubs, or gallops. ABDOMEN: Positive bowel sounds. Soft, nontender, nondi stended. No hepatosplenomegaly. EXTREMITIES: No clubbing, cyanosis, or edema. SKIN: No rash, dr y, intact. NEUROLOGIC: Alert and oriented x3. Moving all 4 extremities equally. PSYCH: Normal m ood and affect. LABORATORIES: White count 9, hemoglobin 10. Chemistries essentially normal. Troponin is negative. Chest x-ray personally reviewed and interpreted, shows no pneumonia. ASSESSMENT: This is a 81-year-old female presenting with complaints of broken oxygen concentrator a nd nausea. PLAN: 1. COPD on chronic oxygen: We will have to get her concentrator fixed before she can go home. 2. Nausea: Patient had this same problem a few weeks ago, and it was attributed to maybe her vanco mycin. She thinks it is her linezolid. We may need to investigate this further although this seems to be a chronic complaint. 3. Probable left hip MRSA infection: May need to clarify with Infectious Disease her antibiotic co urse. She does have an appointment with Dr. Medina today which she probably will miss. I am not shrestha re if they have received all the records from [facility] in terms of what went on with this infectio n. 4. Chronic pain. 5. History of peptic ulcers. 6. Patient will be admitted under observation status. Old records reviewed and summarized in the [facility]. Case discussed with ER physician. /[id number]/MODL
[2016-12-11] MEDS ORDERED: buPROPion XL 150 MG TAB PO SCH (09:00)
[2016-12-11] MEDS ORDERED: ENOXAPARIN 40 MG/0.4 ML SYR SC SCH (09:00)
--- NOTE | 2016-12-11 09:16 | HOSPPROG ---
Hospitalist Progress Note Assessment/Plan: Patient is a 81-year-old female who came to the emergency room because her oxygen concentrator broke and she was having associated nausea. This morning was called by the nursing staff because the patient an episode of chest pain. Troponin is being checked. Previous troponin is negative. The plan will to be sure that her concentrator gets fixed before she can go home. Will further evaluate her chest pain. * chest pain checking a troponin, stat EKG ordered. Nitroglycerin ordered patient requesting more narcotics reviewed ekg, no ischemia noted * COPD. On chronic oxygen will talk with case management to be sure her concentrator is fixed will also ask respiratory therapy to follow up with [facility] * nausea * chronic pain on continuous opioids suspect this contributes to her nausea, but helpful w her pain * probable left hip MRSA infection Dr Medina to further evaluate *Plan: CM and RT evaluating to get concentrator set up/ Dr Medina to evaluate her abx and f/u with him/ poss [facility] Subjective: Tahira said she is having ongoing nausea. Objective: Vital Signs Temp Pulse Resp BP Pulse Ox 36.8 C 85 17 178/75 H 96 12/11/16 07:58 12/11/16 07:58 12/11/16 07:58 12/11/16 07:58 12/11/16 07:58 12/10/16 12/11/16 12/12/16 05:59 05:59 05:59 Intake Total 500 Output Total 400 Balance 500 -400 PT 14.2 SEC (12.0-15.0) 12/10/16 21:05 INR 1.11 (0.83-1.16) 12/10/16 21:05 - Physical Exam Constitutional: chronically ill appearing, uncomfortable Eyes: PERRL Ears, Nose, Mouth, Throat: hearing normal Cardiovascular: regular rate and rhythym Respiratory: no respiratory distress Gastrointestinal: soft, non-tender abdomen, No normoactive bowel sounds ( hypoactive) Skin: warm Musculoskeletal: no muscle tenderness Neurologic: AAOx3 Psychiatric: interacting appropriately ICD10 Worksheet Patient Problems: Problems Problem Status Onset COPD (chronic obstructive pulmonary disease) Acute Abdominal pain Acute Abdominal pain Acute Back pain Acute Chest discomfort Acute Chronic left hip pain Acute Complete heart block Acute Dyspnea Acute Dyspnea Acute Gastric ulcer with perforation Acute Generalized weakness Acute Hip dislocation, left Acute Hypoxemia Acute Nausea Acute Osteoporosis Acute S/P hip replacement Acute Syncope Acute
[2016-12-11] MEDS ORDERED: FLUTICASONE NASAL 120 SPRAYS/16 GM MDI EACHNARE PRN (10:02)
[2016-12-11] MEDS ORDERED: NYSTATIN POWDER 15 GM BTL TP PRN (10:02)
[2016-12-11] MEDS ORDERED: CALCIUM CARBONATE 500 MG CHEWABLE TAB PO PRN (10:02)
[2016-12-11] MEDS ORDERED: IPRATROPIUM/ALBUTEROL 3 ML DEYVIAL IH PRN (10:02)
[2016-12-11] MEDS ORDERED: DICYCLOMINE 20 MG TAB PO PRN (10:02)
[2016-12-11] MEDS ORDERED: FLUTICASONE/SALMETER 500/50MCG DISKUS IH SCH (10:04)
[2016-12-11] MEDS ORDERED: LINEZOLID 600 MG TAB PO SCH (10:15)
[2016-12-11 10:41] LABS: COLOR YELLOW; LEUKOCYTE ESTERASE,URINE 3+ (NEGATIVE); NITRITE,URINE NEGATIVE (NEGATIVE)
[2016-12-11 10:46] LABS: BACTERIA 3+ /hpf (NONE SEEN); WBC,URINE 25-50 /hpf (0-3)
[2016-12-11] MEDS ORDERED: LEVOTHYROXINE 50 MCG TAB PO SCH (11:00)
[2016-12-11] MEDS: ACETAMINOPHEN 325 MG TAB PO PRN ×2 (11:13→17:06)
[2016-12-11] MEDS: GABAPENTIN 300 MG CAP PO SCH ×2 (11:14→17:07)
--- NOTE | 2016-12-11 11:51 | PCMIDPN ---
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 [facility] discussion with [facility] this was not a MRSA infection. Patient had been managed with outpatient oral linezolid 600 mg p.o. twice daily. Her last dose is supposed to be tomorrow. Because her orthopedic hardware was not completely removed however she needs long-term suppression. We will utilize doxycycline 100 mg p. o. daily in this regard. We will have her take this with food. Her recorded allergy is stomach upset. Hopefully this will not happen when the medication is taken with food and at only 100 mg daily dose. Patient also is on long-term Wellbutrin. This drug in combination with Zyvox can increase serotonin levels and cause symptoms. Patient complaints on Zyvox may be indicative of this. The solution is discontinue Zyvox. Plan: 1. Discontinue Zyvox. 2. Start doxycycline 100 mg p.o. daily with food. 3. Okay for discharge. Please prescribe doxycycline for entire month with 5 refills. 12/11/16 11:47 Subjective: Patient is resting in her hospital room. She is currently interacting with physical therapy. Putting up a bit of a fight. She has no particular complaints except that her infection in her left hip has been causing her a lot of problems. She complains of nausea vomiting and some tremulousness with the Zyvox. Objective: Zyvox Vital Signs Temp Pulse Resp BP Pulse Ox 36.8 C 85 17 178/75 H 96 12/11/16 07:58 12/11/16 07:58 12/11/16 07:58 12/11/16 07:58 12/11/16 07:58 12/10/16 12/11/16 12/12/16 05:59 05:59 05:59 Intake Total 500 Output Total 400 Balance 500 -400 - Physical Exam General Appearance: WD/WN, alert, no apparent distress, non-toxic Skin: normal color, warm/dry, No rash Neuro/Psych: alert, normal mood/affect, oriented x 3 ICD10 Worksheet Patient Problems: Problems Problem Status Onset Gastric ulcer with perforation Acute Back pain Acute Hypoxemia Acute Osteoporosis Acute S/P hip replacement Acute Generalized weakness Acute Hip dislocation, left Acute Dyspnea Acute Syncope Acute Complete heart block Acute Chest discomfort Acute Dyspnea Acute Chronic left hip pain Acute Nausea Acute Abdominal pain Acute Abdominal pain Acute COPD (chronic obstructive pulmonary disease) Acute
[2016-12-11] MEDS ORDERED: PROTOCOL POTASSIUM 1 DOSE MISC PRN (13:15)
[2016-12-11] MEDS ORDERED: POTASSIUM CL 10 MEQ TAB PO ONE (13:41)
[2016-12-11 15:39] VITALS: BP 98/62; PULSE 61; RESP 18; TEMP 98.2; O2SAT 95
--- NOTE | 2016-12-11 15:55 | PDIAF ---
- Diagnosis Diagnosis: nausea, hypoxia Code Status: Full Code - Medication Management Discharge Medications: Medications to Continue on Transfer Ascorbic Acid [Vitamin C 500 mg (*)] 1,000 mg PO BID 08/26/13 [Last Taken ] Calcium Carbonate [Tums 500MG (*)] 1,000 - 1,500 mg PO DAILY PRN 08/26/13 [Last Taken 08/18/16] Sennosides [Senokot] 2 each PO HS 08/26/13 [Last Taken 12/10/16] Alendronate Sodium [Fosamax 70 MG (*)] 70 mg PO BERNAL@07 03/29/16 [Last Taken 11/30] Gabapentin [Neurontin 300 MG (*)] 300 mg PO BIDMEAL 03/29/16 [Last Taken 18:00] buPROPion XL [Wellbutrin 150mg XL] 150 mg PO DAILY 03/29/16 [Last Taken 12/10/16 ] diphenhydrAMINE [Benadryl 25 MG (*)] 25 mg PO 05/17/16 [Last Taken 12/09/16] Albuterol [Ventolin Hfa Inhaler] 2 puffs IH QID PRN 05/26/16 [Last Taken ] Fluticasone Nasal [Flonase Nasal [place]] 1 sprays EACHNARE DAILY PRN 07/20/16 [ Last Taken 08/18/16] Gabapentin [Neurontin 300 MG (*)] 600 mg PO HS 07/20/16 [Last Taken 12/09/16] Dicyclomine HCl 20 mg PO QID PRN 07/25/16 [Last Taken 12/10/16] Cholecalciferol Vit D3 [Vitamin D3 (*)] 2,000 units PO DAILY 08/11/16 [Last Taken 12/10/16] Ipratropium/Albuterol [Duoneb (*)] 3 ml IH QID PRN 08/11/16 [Last Taken 11/21/16 ] Promethazine HCl [Phenergan 25mg (*)] 12.5 - 25 mg PO Q8H PRN 08/11/16 [Last Taken 12/11/16 12.5MG] Levothyroxine [Synthroid 50 mcg (*)] 50 mcg PO DAILY06 09/24/16 [Last Taken ] Nystatin Powder [Mycostatin Powder] 1 yoan TP BID PRN 10/21/16 [Last Taken Unknown] Fluticasone/Salmeter 500/50Mcg [Advair 500/50 (*)] 1 puffs IH BID 11/22/16 [ Last Taken 12/10/16] HYDROcodone BIT/HOMATROP ME-BR [HYDROCODONE-HOMATROPINE SYRUP] 2.5 ml PO Q6 PRN 11/22/16 [Last Taken 3 Days Ago] oxyCODONE/APAP 5/325 [Percocet 5/325 (*)] 1 - 2 tab PO Q4HRS PRN 11/22/16 [Last Taken 12/10/16 21:00] Enoxaparin [Lovenox 40 MG (*)] 40 mg SC DAILY syr 11/28/16 [Last Taken 12/10/16 ] Pantoprazole Sodium [Protonix 40mg (*)] 40 mg PO DAILY tab 11/28/16 [Last Taken 12/10/16] Doxycycline Hyclate [Vibramycin 100 MG (*)] 100 mg PO DAILY18 #30 capsule [Last Taken Unknown] Discharge Medications: Refer to the Discharge Home Medication list for PRN reason. - Orders Services needed: Home Care, Registered Nurse, Master Mass Spectroscopist, Physical Therapy, Occupational Therapy Home Care Face to Face: I certify that this patient was under my care and that I had the required [id number] encounter meeting the encounter requirements on the discharge day. My findings support the fact that the patient is homebound as defined in CMS Chapter 7 Medicare Benefits Manual 30.1.1, The condition of the patient is such that there exists a normal inability to leave home and consequently, leaving home would require a considerable and taxing effort. Diet Recommendation: no restrictions on diet Diet Texture: Regular Texture Diet Additional: call DR Chaves office to see when you should follow up with him. Do not take any calcium, Tums within two hours of the doxycylcine/ take the doxycycline w food. - Follow Up Care Current Providers and Referrals: Patient,NotPresent [Unknown] - As per Instructions Jorden Medina MD [Medical Doctor] -
--- NOTE | 2016-12-11 17:54 | GDS ---
[f rep st] DISCHARGE SUMMARY DISCHARGE DIAGNOSES: 1. Chest pain. 2. Chronic obstructive pulmonary disease, on chronic oxygen. 3. Nausea. 4. Chronic pain, on continuous opioids. 5. 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 CONSULTATIONS: Dr. Jorden Medina. HOSPITAL COURSE: The patient is a 81-year-old female who came to the ER because her oxygen concentrator broke, and she was having nausea. This morning when I was taking care of her, I was called by the nursing staff because she was having an episode of chest pain. Troponin x2 were checked and they were negative. EKG showed no significant changes. During the stay, she was seen and evaluated by Dr. Jorden Medina. 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 He spoke with [place] that this was not MRSA infection. She had been managed in the outpatient setting with oral linezolid. Because her orthopedic hardware was not completely removed, she will need long-term suppression. She will be placed on doxycycline daily. In addition, the patient is on Wellbutrin. The combination of this with Zyvox increases serotonin levels and causes symptoms. This has been discontinued. Case management and respiratory therapy are arranging to be sure her oxygen concentrator is working and available for her to use. She will further follow up with Dr. Jorden Medina in the outpatient setting. HOSPITAL COURSE PER PROBLEM: 1. Chest pain. Troponins are negative. I reviewed her EKG. No ischemia is noted. 2. Chronic obstructive pulmonary disease. She is on chronic oxygen. Will continue this. 3. Nausea, better this afternoon. 4. Chronic pain, on continuous opioids. No changes to her home regimen. 5. Left hip infection. Will be on suppressive therapy with doxycycline. She will get a prescription filled here at the hospital for 30 days with 5 refills. CONDITION AT DISCHARGE: Stable. Blood pressure is 158/102, heart rate is 84, respiratory rate is 16, O2 saturation on 3 L is 96%, temperature is 37 degrees Celsius. MEDICATIONS AT DISCHARGE: Please see the EMR. DISCHARGE INSTRUCTIONS: 1. To take the doxycycline, and to be sure she does not take any calcium 2 hours before or after. 2. To follow up with Dr. Medina. 3. Follow up with her orthopedic surgeon down at [place]. 4. Home care will be evaluating her. She will have Physical Therapy, Occupational therapy, and nursing check in on her. /[id number]/MODL MTDD
[2016-12-11] MEDS ORDERED: DOXYCYCLINE HYCLATE 100 MG CAP/TAB PO SCH (18:00)
[2016-12-11] MEDS ORDERED: SENNOSIDES 1 TAB PO SCH (21:00)
[2016-12-11] MEDS ORDERED: ASCORBIC ACID 500 MG TAB PO SCH (21:00)
[2016-12-11] MEDS ORDERED: diphenhydrAMINE 25 MG CAP PO SCH (21:00)
[2016-12-11] MEDS ORDERED: GABAPENTIN 300 MG CAP PO SCH (21:00)
[2016-12-12] MEDS ORDERED: CHOLECALCIFEROL VIT D3 1,000 UNITS TAB PO SCH (09:00)
[2016-12-12] MEDS ORDERED: ENOXAPARIN 40 MG/0.4 ML SYR SC SCH (09:00)
[2016-12-12] MEDS ORDERED: PANTOPRAZOLE SODIUM 40 MG TAB PO SCH (09:00)
[2016-12-14] MEDS ORDERED: ALENDRONATE SODIUM 70 MG TAB PO SCH (07:00)
== END 2016-12-11 18:51 | disposition home health service (06) ==
LOC: EDUNIT# → INTOOBSV 22:44 → F3E 23:36
PROVIDERS: ADMIT Internal Medicine; ATTEND Internal Medicine
DX: J44.9 Chronic obstructive pulmonary disease, unspecified (principal); R07.9 Chest pain, unspecified; R11.0 Nausea; G89.29 Other chronic pain; F11.20 Opioid dependence, uncomplicated; T84.52XA Infection and inflammatory reaction due to internal left hip prosthesis, initial encounter; B95.62 Methicillin resistant Staphylococcus aureus infection as the cause of diseases classified elsewhere; Z99.81 Dependence on supplemental oxygen; Z96.642 Presence of left artificial hip joint
CPT/HCPCS: 71020; 93005; 96360; 97116; 97163; 97165; 99285; G8978; G8979; G8987; G8988; J1650; J2550

== ENCOUNTER 2017-02-17 23:48 | Emergency (ER) | payer OTHER, MEDICAID ==
[2017-02-17 23:57] VITALS: TEMP 98.1
--- NOTE | 2017-02-18 00:35 | EDPHY ---
H & P Stated Complaint: FELL R HIP HPI/ROS: HPI CHIEF COMPLAINT: Mechanical trip and fall right hip pain HISTORY OF PRESENT ILLNESS: This patient very pleasant 81-year-old female she presents emergency room by EMS after marin mechanical trip and fall while using her cane. She thinks she tripped over a cane. She landed on her right hip. Denies any other areas of injury. She is right lateral hip pain. Past Medical History: COPD on 3 L nasal cannula, chronic pain, peptic ulcer disease, left hip replacement with MRSA infection Past Surgical History: Left hip revision Social History: Denies daily use of drugs alcohol tobacco products. Family History: Noncontributory ROS REVIEW OF SYSTEMS: A comprehensive 10 point review of systems is otherwise negative aside from elements mentioned in the history of present illness. Exam Constitutional appears well nontoxic, triage nursing summary reviewed, vital signs reviewed, awake/alert. Eyes normal conjunctivae and sclera, EOMI, PERRLA. HENT normal inspection, atraumatic, moist mucus membranes, no epistaxis, neck supple/ no meningismus, no raccoon eyes. Respiratory clear to auscultation bilaterally, normal breath sounds, no respiratory distress, no wheezing. Cardiovascular rate normal, regular rhythm, no murmur, no edema, distal pulses normal. Gastrointestinal soft, non-tender, no rebound, no guarding, normal bowel sounds, no distension, no pulsatile mass. Genitourinary no CVA tenderness. Musculoskeletal no midline vertebral tenderness, full range of motion, no calf swelling, no tenderness of extremities, no meningismus, good pulses, neurovascularly intact. Right leg is neurovascular intact good distal pulse. Good cap refill. Full range of motion. Tender palpation right lateral hip. Skin pink, warm, & dry, no rash, skin atraumatic. Neurologic awake, alert and oriented x 3, AAOx3, moves all 4 extremities equally, motor intact, sensory intact, CN II-XII intact, normal cerebellar, normal vision, normal speech. Psychiatric normal mood/affect. Heme/Lymph/Immune no lymphadenopathy. Differential Diagnosis: Includes but is not limited to in a particular order right hip contusion, right hip fracture, soft tissue injury, fall Medical Decision Making: Plan for this patient x-ray right hip. Re-evaluation: Tahira Machuca [id number] X-ray of the right hip shows no acute fracture. Patient be discharged from the emergency room. Follow up with her primary care doctor. She understands return emergency room she develops worsening symptoms includes worsening pain. She was able to ambulate with her walker. Source: Patient - Personal History Current Tetanus/Diphtheria Vaccine: Yes Current Tetanus Diphtheria and Acellular Pertussis (TDAP): Yes Tetanus Vaccine Date: 2014 - Medical/Surgical History Hx Asthma: Yes Hx Chronic Respiratory Disease: Yes Hx Diabetes: No Hx Cardiac Disease: Yes Hx Renal Disease: No Hx Cirrhosis: No Hx Alcoholism: No Hx HIV/AIDS: No Hx Splenectomy or Spleen Trauma: No Other PMH: appy, hypothyroid, arthritis, copd, tanja hip replacements,HIP REVISION x5 (last October 2016, prolapsed bladder, "kidney stone surgery",. spinal stenosis, chronic pain, PPM, scoliosis, Posterior hip dislocation x3, PACEMAKER. T9 compression fracture with kyphoplasty, Surgery on T9 vertebrae, bilateral cataracts - Social History Smoking Status: Former smoker Constitutional: Initial Vital Signs Temperature (C) 36.7 C 02/17/17 23:52 Heart Rate 98 02/17/17 23:52 Respiratory Rate 16 02/17/17 23:52 Blood Pressure 118/94 H 02/17/17 23:52 O2 Sat (%) 98 02/17/17 23:52 O2 Delivery Mode Nasal Cannula O2 (L/minute) 3 Allergies/Adverse Reactions: celecoxib [From Celebrex] Allergy (Severe, Verified 12/10/16 21:40) Weight gain, Fatigue, Increased Pain duloxetine HCl [From Cymbalta] Allergy (Severe, Verified 12/10/16 21:40) Vomiting levofloxacin [From Levaquin] Allergy (Severe, Verified 12/10/16 21:40) Swelling/neck,face,throat sulfamethoxazole [From Septra] Allergy (Severe, Verified 12/10/16 21:40) Nausea Vomiting aspirin Allergy (Intermediate, Verified 12/10/16 21:40) stomach pain cephalexin monohydrate [From Keflex] Allergy (Intermediate, Verified 12/10/16 21 :40) Stomach Pain clarithromycin [From Biaxin] Allergy (Intermediate, Verified 12/10/16 21:40) Stomach Pain codeine [Codeine] Allergy (Intermediate, Verified 12/10/16 21:40) Nausea Vomiting hydrocodone bitartrate [From Vicodin] Allergy (Intermediate, Verified 12/10/16 21:40) Nausea Vomiting orphenadrine Allergy (Intermediate, Verified 12/10/16 21:40) Stomach pain tetracycline [Tetracycline] Allergy (Intermediate, Verified 12/10/16 21:40) Stomach Pain amoxicillin trihydrate [From Augmentin] Allergy (Verified 12/10/16 21:40) ciprofloxacin [From Cipro] Allergy (Verified 12/10/16 21:40) linezolid [From Zyvox] Allergy (Verified 12/10/16 21:40) potassium clavulanate [From Augmentin] Allergy (Verified 12/10/16 21:40) shrimp Allergy (Verified 12/10/16 21:40) ORPHENGESIC Allergy (Intermediate, Uncoded 11/22/16 10:24) Stomach Pain Terpin hydrate Allergy (Intermediate, Uncoded 11/22/16 10:24) Stomach pain Home Medications: Medication Instructions Recorded Ascorbic Acid [Vitamin C 500 mg 1,000 mg PO BID 08/26/13 (*)] Calcium Carbonate [Tums 500MG (*)] 1,000 - 1,500 mg PO DAILY PRN 08/26/13 Sennosides [Senokot] 2 each PO HS 08/26/13 Alendronate Sodium [Fosamax 70 MG 70 mg PO BERNAL@07 03/29/16 (*)] Gabapentin [Neurontin 300 MG (*)] 300 mg PO BIDMEAL 03/29/16 buPROPion XL [Wellbutrin 150mg XL] 150 mg PO DAILY 03/29/16 diphenhydrAMINE [Benadryl 25 MG 25 mg PO HS 05/17/16 (*)] Albuterol [Ventolin Hfa Inhaler] 2 puffs IH QID PRN 05/26/16 Fluticasone Nasal [Flonase Nasal 1 sprays EACHNARE DAILY PRN 07/20/16 [place]] Gabapentin [Neurontin 300 MG (*)] 600 mg PO HS 07/20/16 Dicyclomine HCl 20 mg PO QID PRN 07/25/16 Cholecalciferol Vit D3 [Vitamin D3 2,000 units PO DAILY 08/11/16 (*)] Ipratropium/Albuterol [Duoneb (*)] 3 ml IH QID PRN 08/11/16 Promethazine HCl [Phenergan 25mg 12.5 - 25 mg PO Q8H PRN 08/11/16 (*)] Levothyroxine [Synthroid 50 mcg 50 mcg PO DAILY06 09/24/16 (*)] HYDROcodone BIT/HOMATROP ME-BR 2.5 ml PO Q6 PRN 11/22/16 [HYDROCODONE-HOMATROPINE SYRUP] oxyCODONE/APAP 5/325 [Percocet 1 - 2 tab PO Q4HRS PRN 11/22/16 5/325 (*)] Enoxaparin [Lovenox 40 MG (*)] 40 mg SC DAILY syr 11/28/16 Pantoprazole Sodium [Protonix 40mg 40 mg PO DAILY tab 11/28/16 (*)] Advair 250/50 (*) 02/17/17 Departure - Departure Disposition: Home, Routine, Self-Care Clinical Impression: Fall Qualifiers: Encounter type: initial encounter Qualified Code(s): W19.XXXA - Unspecified fall, initial encounter Contusion of right hip Qualifiers: Encounter type: initial encounter Qualified Code(s): S70.01XA - Contusion of right hip, initial encounter Condition: Good Instructions: Fall Prevention for Older Adults (ED), Hip Contusion (ED) Additional Instructions: 1.Return emergency room if develops worsening symptoms questions or concerns worsening pain unable to walk. Referrals: Gutierrez Reyes MD [Primary Care Provider] - As per Instructions
[2017-02-18 05:53] VITALS: BP 145/108; PULSE 92; RESP 18; O2SAT 97
== END 2017-02-18 02:10 | disposition home or self-care (01) ==
LOC: EDUNIT#
DX: S70.01XA Contusion of right hip, initial encounter (principal); J44.9 Chronic obstructive pulmonary disease, unspecified; W01.0XXA Fall on same level from slipping, tripping and stumbling without subsequent striking against object, initial encounter; Z87.891 Personal history of nicotine dependence; Z95.0 Presence of cardiac pacemaker

== ENCOUNTER → 2017-03-16 | Outpatient (CLI) | payer OTHER, MEDICAID | LOC: BMCIMAGING 14:16 | PROVIDERS: ATTEND Internal Medicine Rheumatology | DX: M48.54XD Collapsed vertebra, not elsewhere classified, thoracic region, subsequent encounter for fracture with routine healing (principal) ==

== ENCOUNTER → 2017-03-27 | Outpatient (CLI) | payer OTHER, MEDICAID | LOC: BMCIMAGING 11:40 | PROVIDERS: ATTEND Family Medicine | DX: M71.21 Synovial cyst of popliteal space [Baker], right knee (principal); M71.22 Synovial cyst of popliteal space [Baker], left knee ==

== ENCOUNTER 2017-04-08 21:38 | Inpatient (IN) | payer OTHER, MEDICAID ==
--- NOTE | 2017-04-08 21:51 | CPEKG ---
Heart Rate: 115 RR Interval: 522 P-R Interval: 156 QRSD Interval: 124 QT Interval: 332 QTC Interval: 460 P [place]: 10 QRS [place]: 10 T Wave [place]: -57 EKG Severity - ABNORMAL ECG - EKG Impression: SINUS TACHYCARDIA EKG Impression: RIGHT BUNDLE BRANCH BLOCK EKG Impression: BORDERLINE ST DEPRESSION, LATERAL LEADS Electronically Signed By: Richar Sultana 08-Apr-2017 23:37:29
--- NOTE | 2017-04-08 21:51 | CPEKG ---
Heart Rate: 115 RR Interval: 522 P-R Interval: 156 QRSD Interval: 124 QT Interval: 332 QTC Interval: 460 P [place]: 10 QRS [place]: 10 T Wave [place]: -57 EKG Severity - ABNORMAL ECG - EKG Impression: SINUS TACHYCARDIA EKG Impression: RIGHT BUNDLE BRANCH BLOCK EKG Impression: BORDERLINE ST DEPRESSION, LATERAL LEADS Electronically Signed By: Richar Sultana 08-Apr-2017 23:37:29
[2017-04-08] MEDS ORDERED: LORazepam 2 MG/ML INJ ONE (21:52)
[2017-04-08] MEDS ORDERED: NS 500 ML IV ONE (21:56)
[2017-04-08] MEDS ORDERED: levETIRAcetam 1,000 MG in NS 100 ML IV ONE (22:02)
[2017-04-08 22:12] LABS: PLATELET COUNT 349 10^3/uL (150-400)
[2017-04-08] MEDS ORDERED: fentaNYL 100 MCG/2 ML INJ IVP ONE ×2 (22:15→22:30)
[2017-04-08 22:24] LABS: INR 1.22 (0.83-1.16); PROTIME(PATIENT) 15.4 SEC (12.0-15.0)
[2017-04-08] MEDS ORDERED: fentaNYL/NACL 100 ML IV STA (22:31)
[2017-04-08] MEDS ORDERED: PROPOFOL/EMULSION 50 ML IV ONE (22:31)
[2017-04-08 22:36] LABS: CREATINE KINASE 141 IU/L (0-156)
[2017-04-08] MEDS ORDERED: SUCCINYLCHOLINE CHLORIDE 200 MG/10 ML VIAL IVP ONE (22:47)
--- NOTE | 2017-04-08 23:03 | EDPHY ---
H & P Time Seen by Provider: 04/08/17 21:56 HPI/ROS: HPI Lightheaded. Fell 3 times. 81-year-old female by ambulance. She reports that today she has felt dizzy/ lightheaded. She denies feeling vertiginous. She reports that because of this she had 3 falls. She lives in a private residence. After her 3rd fall she called EMS. She was initially put in room 9. The nursing staff report that after they hooked up her lines and were preparing to do an EKG she suddenly appeared very ashen in color in color, grab the EKG lines, started shaking her head. This lasted for about 30 seconds. They called her name and asked her if she was all right. She then suddenly corrected the pronunciation of her name. She was immediately transferred to room 1. When I evaluated her she would open her eyes to her name. She was sleepy. She was slow to respond. A few minutes later she her respiratory rate slowed and she suddenly became apneic. ROS: Constitutional: No fever, no chills. As above. Respiratory: No cough. No shortness of breath. Cardiac: No chest pain, no palpitations. Gastrointestinal: No abdominal pain, no vomiting, no diarrhea. Musculoskeletal: No back pain. No neck pain. No myalgias or arthralgias. Skin: No rashes. Neurological: No headache. No focal weakness or altered sensation. Past medical history: Chronic hypoxemic respiratory failure on 3 L of oxygen 24 -7, complete heart block with pacemaker, peptic ulcer disease with history of perforated peptic ulcers, chronic back pain secondary to vertebral compression fractures. Appendectomy, bilateral hip surgeries. Social history: She lives alone. Heavy smoker. No alcohol. Currently here by herself. Physical Exam: General Appearance: Sleepy, pale in color. Opens her eyes to her name. Tracks. This patient generally appears well-hydrated and well-nourished. Eyes: Pupils equal and round no pallor or injection. No lid edema, erythema or injection. ENT, Mouth: Mucous membranes are moist. The pharyngeal tissues are unremarkable. No edema or swelling. No asymmetry suggestive of abscess. No erythema or exudates. Respiratory: There are no retractions, diminished lung sounds anteriorly but clear bilaterally. No tachypnea. Cardiovascular: Regular rate and rhythm. Heart sounds distant. Borderline tachycardia. No murmur appreciated. Gastrointestinal: Abdomen is soft and without apparent tenderness, no masses, bowel sounds normal. No focal tenderness at McBurney's point. No Martinez sign. Neurological: Motor sensory function is grossly intact. Moving all 4 extremities. Cranial nerves are grossly normal. Skin: Warm and dry, no rashes. Skin tear to left mid lateral anterior leg. Musculoskeletal: Neck is supple and nontender. Extremities are symmetrical. All joints range without pain or impingement. Psychiatric: No agitation. No depression. Database: EKG: EKG time is 9:49 p.m.: EKG shows a sinus tachycardia with ventricular rate of 115. There is an underlying right bundle branch block. Subtle ST depressions noted in the lateral leads. Previous EKG for comparison December 11. Right bundle branch block. Sinus rhythm ventricular rate of 89. EKG time is 10:11 p.m.: EKG shows ventricular paced complexes, rate of 116. Discordance appears appropriate. Interpreted by me. EKG time is 11:05 p.m.: EKG shows a sinus rhythm with a right bundle branch block ventricular rate of 86. No ST, T-wave changes indicative of ischemic or injury pattern. This EKG is unchanged from her prior EKGs in November of this year. Imaging: Chest x-ray AP portable: Left upper chest wall pacemaker. Leads appear intact. Degenerative spinal changes. ET tube is in correct position. OG tube in correct position. No pneumothorax. No infiltrate appreciated. Interpreted by me. CT head without contrast: Negative. Results discussed with staff radiologist Dr. Wai Centeno. Procedures: Indication for the procedure was acute respiratory failure. The patient was preoxygenated with 100% oxygen by face mask. The patient was sedated with nothing and paralyzed with 200 mg IV succinylcholine. The patient was orally endotracheally intubated under direct visualization with a 6.5 ETT. Tracheal intubation was confirmed with misting on the tube; breath sounds were auscultated equally bilaterally; appropriate color change with [place]idal CO2 detector, capnography waveform is appropriate, oxygen saturation after procedure is 100%. Chest X-ray shows ETT in good position. The procedure was performed by myself. Emergency department course: 2 IVs were placed. She was immediately placed on a phototypesetting equipment monitor after being transferred from Room 9. Pacer pads were placed. Advanced airway equipment to the bedside. EKG obtained and reviewed by myself. She would open her eyes to voice. She was slow to answer questions but appear to recognize her name clearly. A few minutes after my initial evaluation she went apneic as noted above. Bag valve mask respirations were started immediately. Followed by intubation as above. She was started on IV normal saline with 500 cc to be given over an hour. Post intubation sedation includes propofol drip at 25 micrograms/minute and a fentanyl drip at 1 microgram/minute. Ozuna catheter and OG tube placed. Respiratory settings: Assist control, FiO2 of 100%, respiratory rate of 12, peep of 5, initial tidal volume 450. Urinalysis shows urinary tract infection. She was given 1 g of IV Rocephin. 11:00 p.m., the patient has returned from CT. environmental monitoring technician shows a regular, borderline and wide complex rhythm with ventricular rate of 87. Blood pressure decreased to 74/51. Pulse oximetry 100%. Tidal volume decreased to 400. FiO2 being weaned down. Propofol drip discontinued. Patient given a 250 cc IV normal saline bolus. Fentanyl drip continued for sedation and analgesia. EKG repeated. Hospitalist paged. 11:30 p.m., I spoke with hospitalist Dr. Henderson. Case discussed in detail with him. He accepts the patient for admission. Patient's blood pressure at this time is 105 over 59. environmental monitoring technician shows a narrow complex sinus rhythm ventricular rate of 85. Pulse oximetry 100%. Hospitalist will follow up on results of pending venous lactate and D-dimer. CT angiogram of the chest will be ordered if appropriate. Patient also started on IV vancomycin 1 g as requested by the hospitalist. Her remaining emergency department course under my care has been uneventful. She was admitted to the hospitalist service ICU in guarded condition Differential Diagnosis: The differential diagnosis on this patient includes but is not limited to acute respiratory failure, pulmonary embolism, acute coronary syndrome. Seizure, CVA , meningitis, encephalitis, unlikely. This represents a partial list of diagnoses considered. These considerations are based on history, physical exam , past history, reassessment and diagnostic testing. Smoking Status: Former smoker Constitutional: Initial Vital Signs Heart Rate 120 H 04/08/17 21:50 Respiratory Rate 20 04/08/17 21:50 Blood Pressure 121/78 H 04/08/17 21:50 O2 Sat (%) 97 04/08/17 21:50 O2 Delivery Mode Ventilator O2 (L/minute) 15 Allergies/Adverse Reactions: celecoxib [From Celebrex] Allergy (Severe, Verified 12/10/16 21:40) Weight gain, Fatigue, Increased Pain duloxetine HCl [From Cymbalta] Allergy (Severe, Verified 12/10/16 21:40) Vomiting levofloxacin [From Levaquin] Allergy (Severe, Verified 12/10/16 21:40) Swelling/neck,face,throat sulfamethoxazole [From Septra] Allergy (Severe, Verified 12/10/16 21:40) Nausea Vomiting aspirin Allergy (Intermediate, Verified 12/10/16 21:40) stomach pain cephalexin monohydrate [From Keflex] Allergy (Intermediate, Verified 12/10/16 21 :40) Stomach Pain clarithromycin [From Biaxin] Allergy (Intermediate, Verified 12/10/16 21:40) Stomach Pain codeine [Codeine] Allergy (Intermediate, Verified 12/10/16 21:40) Nausea Vomiting hydrocodone bitartrate [From Vicodin] Allergy (Intermediate, Verified 12/10/16 21:40) Nausea Vomiting orphenadrine Allergy (Intermediate, Verified 12/10/16 21:40) Stomach pain tetracycline [Tetracycline] Allergy (Intermediate, Verified 12/10/16 21:40) Stomach Pain amoxicillin trihydrate [From Augmentin] Allergy (Verified 12/10/16 21:40) ciprofloxacin [From Cipro] Allergy (Verified 12/10/16 21:40) linezolid [From Zyvox] Allergy (Verified 12/10/16 21:40) potassium clavulanate [From Augmentin] Allergy (Verified 12/10/16 21:40) shrimp Allergy (Verified 12/10/16 21:40) ORPHENGESIC Allergy (Intermediate, Uncoded 11/22/16 10:24) Stomach Pain Terpin hydrate Allergy (Intermediate, Uncoded 11/22/16 10:24) Stomach pain Home Medications: Medication Instructions Recorded Ascorbic Acid [Vitamin C 500 mg 1,000 mg PO BID 08/26/13 (*)] Calcium Carbonate [Tums 500MG (*)] 1,000 - 1,500 mg PO DAILY PRN 08/26/13 Sennosides [Senokot] 2 each PO HS 08/26/13 Alendronate Sodium [Fosamax 70 MG 70 mg PO BERNAL@07 03/29/16 (*)] buPROPion XL [Wellbutrin 150mg XL] 300 mg PO DAILY 03/29/16 diphenhydrAMINE [Benadryl 25 MG 25 mg PO HS 05/17/16 (*)] Gabapentin [Neurontin 300 MG (*)] 600 mg PO BID 07/20/16 Cholecalciferol Vit D3 [Vitamin D3 1,000 units PO BID 08/11/16 (*)] Ipratropium/Albuterol [Duoneb (*)] 3 ml IH QID PRN 08/11/16 Levothyroxine [Synthroid 50 mcg 50 mcg PO DAILY06 09/24/16 (*)] oxyCODONE/APAP 5/325 [Percocet 1 tab PO Q4HRS PRN 11/22/16 5/325 (*)] Pantoprazole Sodium [Protonix 40mg 40 mg PO DAILY tab 11/28/16 (*)] Fluticasone/Salmeter 500/50Mcg 1 puffs IH BID 02/17/17 [Advair 500/50 (*)] Albuterol [Proventil Inhaler HFA 1 - 2 puffs IH DAILY PRN 04/09/17 (*)] Albuterol [Proventil Neb] 3 ml IH Q4HRS PRN 04/09/17 Doxycycline Hyclate [Vibramycin 100 mg PO DAILY 04/09/17 100 MG (*)] Morphine Sulfate [Ms Contin] 15 mg PO TID 04/09/17 Medical Decision Making Critical Care Time: I spent a total of 52 minutes of critical care time in obtaining history, performing a physical exam, bedside monitoring of interventions, collecting and interpreting tests and discussion with consultants but not including time spent performing procedures. - Data Points Laboratory Results: Laboratory Results 04/08/17 21:45 04/08/17 21:45 Medications Given: Albuterol/Ipratropium (Duoneb) 3 ml IH Q6HRS TAVIA Stop: 10/06/17 11:59 Last Admin: 04/10/17 05:21 Dose: 3 ml Ascorbic Acid (Vitamin C) 1,000 mg PO BID TAVIA Stop: 10/06/17 20:59 Last Admin: 04/09/17 23:07 Dose: 1,000 mg Bupropion HCl (Wellbutrin Xl) 300 mg PO DAILY TAVIA Stop: 10/06/17 11:44 Last Admin: 04/09/17 12:00 Dose: Not Given Cholecalciferol (Vitamin D) 1,000 units PO BID TAVIA Stop: 10/06/17 20:59 Last Admin: 04/09/17 23:07 Dose: 1,000 units Diphenhydramine HCl (Benadryl) 25 mg PO HS TAVIA Stop: 10/06/17 20:59 Last Admin: 04/09/17 23:10 Dose: Not Given Doxycycline Hyclate (Doxycycline Hyclate) 100 mg PO DAILY [facility] PRN Reason: Protocol Stop: 05/09/17 11:44 Last Admin: 04/09/17 12:00 Dose: Not Given Enoxaparin Sodium (Lovenox) 40 mg SC DAILY TAVIA Stop: 10/06/17 08:59 Last Admin: 04/09/17 08:39 Dose: 40 mg Gabapentin (Neurontin) 600 mg PO BID TAVIA Stop: 10/06/17 20:59 Last Admin: 04/09/17 23:07 Dose: 600 mg Ceftriaxone Sodium/Dextrose (Rocephin 1 Gm (Premix)) 50 mls @ 100 mls/hr IV DAILY21 [facility] PRN Reason: Protocol Stop: 05/09/17 20:59 Last Admin: 04/09/17 23:10 Dose: 50 mls Vancomycin HCl 750 mg/ (Dextrose) 150 mls @ 150 mls/hr IV DAILY@0000 [facility] Stop: 05/10/17 00:00 Last Admin: 04/10/17 00:05 Dose: 150 mls Methylprednisolone Sodium Succinate (Solu-Medrol) 60 mg IVP Q6HRS TAVIA Stop: 10/06/17 11:59 Last Admin: 04/10/17 00:05 Dose: 60 mg Morphine Sulfate (Ms Contin/Oramorph) 15 mg PO TID TAVIA Stop: 04/19/17 15:59 Last Admin: 04/09/17 23:11 Dose: Not Given Fluticasone/Salmeterol (Advair) 1 puffs IH BID TAVIA Stop: 10/06/17 11:44 Last Admin: 04/09/17 23:47 Dose: Not Given Senna (Senokot) 2 tab PO HS TAVIA Stop: 10/06/17 20:59 Last Admin: 04/09/17 23:11 Dose: Not Given Discontinued Medications Chlorhexidine Gluconate (Peridex) 15 ml PO BID TAVIA Stop: 10/06/17 08:59 Last Admin: 04/09/17 08:39 Dose: 15 ml Fentanyl (Sublimaze) 100 mcg IVP EDNOW ONE Stop: 04/08/17 22:16 Last Admin: 04/08/17 22:15 Dose: 100 mcg Fentanyl (Sublimaze) 50 mcg IVP EDNOW ONE Stop: 04/08/17 22:31 Last Admin: 04/08/17 22:30 Dose: 50 mcg Sodium Chloride (Ns) 500 mls @ 1,000 mls/hr IV EDNOW ONE PRN Reason: Protocol Stop: 04/08/17 22:25 Last Admin: 04/08/17 22:30 Dose: 500 mls Levetiracetam 1,000 mg/ Sodium (Chloride) 110 mls @ 440 mls/hr IV EDNOW ONE Stop: 04/08/17 22:16 Last Admin: 04/08/17 22:49 Dose: 110 mls Fentanyl/Sodium Chloride (Fentanyl 10 Mcg/Ml (Premix)) 100 mls @ 0 mls/hr IV CONT STA; As Directed PRN Reason: Protocol Stop: 04/08/17 22:32 Last Admin: 04/08/17 23:01 Dose: 100 mls Propofol (Diprivan 10 Mg/Ml (Premix)) 50 mls @ 0 mls/hr IV EDNOW ONE; As Directed PRN Reason: Protocol Stop: 04/08/17 22:32 Last Admin: 04/08/17 22:50 Dose: 50 mls Ceftriaxone Sodium/Dextrose (Rocephin 1 Gm (Premix)) 50 mls @ 100 mls/hr IV EDNOW ONE PRN Reason: Protocol Stop: 04/08/17 23:10 Last Admin: 04/08/17 23:37 Dose: 50 mls Vancomycin/Sodium Chloride (Vancomycin 1 Gm (Premix)) 250 mls @ 250 mls/hr IV EDNOW ONE PRN Reason: Protocol Stop: 04/09/17 00:19 Last Admin: 04/09/17 00:25 Dose: 250 mls Famotidine/Sodium Chloride (Pepcid 20 Mg (Premix)) 50 mls @ 200 mls/hr IV DAILY TAVIA Stop: 10/06/17 08:59 Last Admin: 04/09/17 08:39 Dose: 50 mls Succinylcholine Chloride (Quelicin) 200 mg IVP EDNOW ONE Stop: 04/08/17 22:48 Last Admin: 04/08/17 22:55 Dose: 200 mg Departure - Departure Disposition: [facility] Inpatient Acute Clinical Impression: Acute respiratory failure, Elevated troponin Condition: Critical
--- NOTE | 2017-04-08 23:07 | CPEKG ---
Heart Rate: 86 RR Interval: 698 P-R Interval: 192 QRSD Interval: 132 QT Interval: 392 QTC Interval: 469 P [place]: 66 QRS [place]: 65 T Wave [place]: 3 EKG Severity - ABNORMAL ECG - EKG Impression: SINUS RHYTHM EKG Impression: RIGHT BUNDLE BRANCH BLOCK Electronically Signed By: Richar Sultana 08-Apr-2017 23:37:29
--- NOTE | 2017-04-08 23:07 | CPEKG ---
Heart Rate: 86 RR Interval: 698 P-R Interval: 192 QRSD Interval: 132 QT Interval: 392 QTC Interval: 469 P [place]: 66 QRS [place]: 65 T Wave [place]: 3 EKG Severity - ABNORMAL ECG - EKG Impression: SINUS RHYTHM EKG Impression: RIGHT BUNDLE BRANCH BLOCK Electronically Signed By: Richar Sultana 08-Apr-2017 23:37:29
[2017-04-08] MEDS ORDERED: VANCOMYCIN HCL/NORMAL SALINE 250 ML IV ONE (23:20)
[2017-04-08] MEDS ORDERED: fentaNYL/NACL 100 ML IV SCH (23:30)
[2017-04-08] MEDS ORDERED: PROPOFOL/EMULSION 100 ML IV SCH (23:30)
[2017-04-09] MEDS ORDERED: IOPAMIDOL (ISOVUE 370) 100 ML BTL IV ONE (00:10)
[2017-04-09] MEDS ORDERED: SUCCINYLCHOLINE CHLORIDE*ANESTHESIA ONLY*200 MG/10 ML SYR IVP ONE (00:34)
--- NOTE | 2017-04-09 02:29 | PDGENHP ---
History and Physical - Chief Complaint Lightheadedness - History of Present Illness 81 yo F w/ hx of COPD on 3 L continuous O2, CHB s/p PPM, and L hip PJI presented to ED with one day of lightheadedness and dizziness leading to multiple falls. History obtained from discussion with ED physician Dr. Sultana as patient was intubated and sedated by the time of my evaluation with no witnesses at bedside to elucidate. Per ED, patient came in with complaints of lightheadedness and falls. While in the ED, she reportedly became apneic requiring emergent intubation. Remainder of the work-up there notable for infectious appearing UA, elevated D-dimer, and CTPE without PE or pneumonia. Review of November 2016 d/c summary shows diagnosis of RADHA Goldman hip PJI for which she was prescribed chronic suppressive doxycycline. It is unclear if patient has been taking this. History Information - Allergies/Home Medication List Allergies/Adverse Reactions: celecoxib [From Celebrex] Allergy (Severe, Verified 12/10/16 21:40) Weight gain, Fatigue, Increased Pain duloxetine HCl [From Cymbalta] Allergy (Severe, Verified 12/10/16 21:40) Vomiting levofloxacin [From Levaquin] Allergy (Severe, Verified 12/10/16 21:40) Swelling/neck,face,throat sulfamethoxazole [From Septra] Allergy (Severe, Verified 12/10/16 21:40) Nausea Vomiting aspirin Allergy (Intermediate, Verified 12/10/16 21:40) stomach pain cephalexin monohydrate [From Keflex] Allergy (Intermediate, Verified 12/10/16 21 :40) Stomach Pain clarithromycin [From Biaxin] Allergy (Intermediate, Verified 12/10/16 21:40) Stomach Pain codeine [Codeine] Allergy (Intermediate, Verified 12/10/16 21:40) Nausea Vomiting hydrocodone bitartrate [From Vicodin] Allergy (Intermediate, Verified 12/10/16 21:40) Nausea Vomiting orphenadrine Allergy (Intermediate, Verified 12/10/16 21:40) Stomach pain tetracycline [Tetracycline] Allergy (Intermediate, Verified 12/10/16 21:40) Stomach Pain amoxicillin trihydrate [From Augmentin] Allergy (Verified 12/10/16 21:40) ciprofloxacin [From Cipro] Allergy (Verified 12/10/16 21:40) linezolid [From Zyvox] Allergy (Verified 12/10/16 21:40) potassium clavulanate [From Augmentin] Allergy (Verified 12/10/16 21:40) shrimp Allergy (Verified 12/10/16 21:40) ORPHENGESIC Allergy (Intermediate, Uncoded 11/22/16 10:24) Stomach Pain Terpin hydrate Allergy (Intermediate, Uncoded 11/22/16 10:24) Stomach pain Home Medications: Ascorbic Acid [Vitamin C 500 mg (*)] 1,000 mg PO BID 08/26/13 [Last Taken ] Calcium Carbonate [Tums 500MG (*)] 1,000 - 1,500 mg PO DAILY PRN 08/26/13 [Last Taken 08/18/16] Sennosides [Senokot] 2 each PO HS 08/26/13 [Last Taken 12/10/16] Alendronate Sodium [Fosamax 70 MG (*)] 70 mg PO BERNAL@07 03/29/16 [Last Taken 11/30] buPROPion XL [Wellbutrin 150mg XL] 150 mg PO DAILY 03/29/16 [Last Taken 12/10/16 ] diphenhydrAMINE [Benadryl 25 MG (*)] 25 mg PO HS 05/17/16 [Last Taken 12/09/16] Albuterol [Ventolin Hfa Inhaler] 2 puffs IH QID PRN 05/26/16 [Last Taken ] Gabapentin [Neurontin 300 MG (*)] 600 mg PO HS 07/20/16 [Last Taken 12/09/16] Dicyclomine HCl 20 mg PO QID PRN 07/25/16 [Last Taken 12/10/16] Cholecalciferol Vit D3 [Vitamin D3 (*)] 2,000 units PO DAILY 08/11/16 [Last Taken 12/10/16] Ipratropium/Albuterol [Duoneb (*)] 3 ml IH QID PRN 08/11/16 [Last Taken 11/21/16 ] Levothyroxine [Synthroid 50 mcg (*)] 50 mcg PO DAILY06 09/24/16 [Last Taken ] oxyCODONE/APAP 5/325 [Percocet 5/325 (*)] 1 - 2 tab PO Q4HRS PRN 11/22/16 [Last Taken 12/10/16 21:00] Advair 250/50 (*) 02/17/17 [Last Taken Unknown] I have personally reviewed and updated: family history, medical history - Past Medical History COPD Additional medical history: L hip PJI, MRSE - Surgical History Reports: pacemaker/AICD, spinal surgery Additional surgical history: Bilateral hip surgeries - Family History Additional family history: Unable to provide - Social History Smoking Status: Former smoker Review of Systems Review of Systems: Unable to provide Physical Exam Physical Exam: Temp Pulse Resp BP Pulse Ox 36.7 C 90 12 101/89 H 100 04/09/17 01:13 04/09/17 00:23 04/09/17 00:23 04/09/17 01:13 04/09/17 00:23 FIO2 (%) 40 Constitutional: other (Intubated, sedated) Eyes: PERRL, EOMI Ears, Nose, Mouth, Throat: moist mucous membranes, no oral mucosal ulcers Cardiovascular: regular rate and rhythym, other (Distant heart sounds) Respiratory: no respiratory distress, clear to auscultation Gastrointestinal: normoactive bowel sounds, soft, non-tender abdomen Skin: warm, normal color Neurologic: other (Intubated, sedated) Lab Data & Imaging Review 04/08/17 21:45 04/08/17 21:45 WBC 11.34 10^3/uL (3.80-9.50) H 04/08/17 21:45 RBC 3.79 10^6/uL (4.18-5.33) L 04/08/17 21:45 Hgb 11.7 g/dL (12.6-16.3) L 04/08/17 21:45 POC Hgb 12.2 gm/dL (12.6-16.3) L 04/08/17 22:05 Hct 36.7 % (38.0-47.0) L 04/08/17 21:45 POC Hct 36 % (38-47) L 04/08/17 22:05 MCV 96.8 fL (81.5-99.8) 04/08/17 21:45 MCH 30.9 pg (27.9-34.1) 04/08/17 21:45 MCHC 31.9 g/dL (32.4-36.7) L 04/08/17 21:45 RDW 16.2 % (11.5-15.2) H 04/08/17 21:45 Plt Count 349 10^3/uL (150-400) 04/08/17 21:45 MPV 9.9 fL (8.7-11.7) 04/08/17 21:45 Neut % (Auto) 81.1 % (39.3-74.2) H 04/08/17 21:45 Lymph % (Auto) 8.1 % (15.0-45.0) L 04/08/17 21:45 Hendricks % (Auto) 9.7 % (4.5-13.0) 04/08/17 21:45 Eos % (Auto) 0.5 % (0.6-7.6) L 04/08/17 21:45 Baso % (Auto) 0.2 % (0.3-1.7) L 04/08/17 21:45 Nucleat RBC Rel Count 0.0 % (0.0-0.2) 04/08/17 21:45 Absolute Neuts (auto) 9.20 10^3/uL (1.70-6.50) H 04/08/17 21:45 Absolute Lymphs (auto) 0.92 10^3/uL (1.00-3.00) L 04/08/17 21:45 Absolute Monos (auto) 1.10 10^3/uL (0.30-0.80) H 04/08/17 21:45 Absolute Eos (auto) 0.06 10^3/uL (0.03-0.40) 04/08/17 21:45 Absolute Basos (auto) 0.02 10^3/uL (0.02-0.10) 04/08/17 21:45 Absolute Nucleated RBC 0.00 10^3/uL (0-0.01) 04/08/17 21:45 Immature Gran % 0.4 % (0.0-1.1) 04/08/17 21:45 Immature Gran # 0.04 10^3/uL (0.00-0.10) 04/08/17 21:45 PT 15.4 SEC (12.0-15.0) H 04/08/17 21:45 INR 1.22 (0.83-1.16) H 04/08/17 21:45 APTT 34.9 SEC (23.0-38.0) 04/08/17 21:45 D-Dimer 3.20 ug/mLFEU (0.00-0.50) H 04/08/17 22:12 Puncture Site LEFT BRACHIAL 04/09/17 00:29 Patient Temperature 36.6 DEGREES 04/09/17 00:29 pCO2 49 mmHg (34-38) H 04/09/17 00:29 pO2 163 mmHg (65-75) H 04/09/17 00:29 Total CO2 23 mEq/L (23-27) 04/09/17 00:29 ABG pH 7.26 (7.35-7.45) L 04/09/17 00:29 ABG PO2/FiO2 Ratio 408 RATIO 04/09/17 00:29 ABG HCO3 21 mEq/L (22-26) L 04/09/17 00:29 ABG O2 Saturation 99 % (92-95) H 04/09/17 00:29 ABG Base Excess -5.1 mEq/L (-2.5-2.5) L 04/09/17 00:29 VBG Lactic Acid 1.4 mmol/L (0.7-2.1) 04/08/17 23:32 O2 Concentration % 40 % (0-100) 04/09/17 00:29 Actual Respiration Rate 12 04/09/17 00:29 Set Respiration Rate 12 04/09/17 00:29 SIMV YES 04/09/17 00:29 Tidal Volume 400 04/09/17 00:29 PEEP 5 04/09/17 00:29 Peak Inspir Pressure 20 04/09/17 00:29 Pressure Support 10 04/09/17 00:29 POC Sodium 138 mEq/L (134-144) 04/08/17 22:05 Sodium 132 mEq/L (134-144) L 04/08/17 21:45 POC Potassium 3.9 mEq/L (3.3-5.0) 04/08/17 22:05 Potassium 4.2 mEq/L (3.5-5.2) 04/08/17 21:45 POC Chloride 99 mEq/L (97-110) 04/08/17 22:05 Chloride 95 mEq/L (97-110) L 04/08/17 21:45 Carbon Dioxide 20 mEq/l (22-31) L 04/08/17 21:45 Anion Gap 17 mEq/L (8-16) H 04/08/17 21:45 POC BUN 21 mg/dL (7-23) 04/08/17 22:05 BUN 21 mg/dL (7-23) 04/08/17 21:45 Creatinine 1.0 mg/dL (0.6-1.0) 04/08/17 21:45 POC Creatinine 1.1 mg/dL (0.6-1.0) H 04/08/17 22:05 Estimated GFR 53 04/08/17 21:45 Glucose 80 mg/dL (70-100) 04/08/17 21:45 POC Glucose 100 mg/dL (70-100) 04/08/17 22:05 Calcium 10.3 mg/dL (8.5-10.4) 04/08/17 21:45 Creatine Kinase 141 IU/L (0-156) 04/08/17 21:45 CK-MB (CK-2) Fraction 4.11 ng/mL (0.00-3.19) H 04/08/17 21:45 CK-MB (CK-2) % 2.9 % (0.0-4.0) 04/08/17 21:45 Creatine Kinase Interp NEGATIVE (NEGATIVE) 04/08/17 21:45 Troponin I 0.051 ng/mL (0.000-0.034) H 04/08/17 21:45 NT-Pro-B Natriuret Pep 873 pg/mL (0-450) H 04/08/17 22:12 Urine Color SAVANNA 04/08/17 22:30 Urine Appearance TURBID 04/08/17 22:30 Urine pH 5.0 (5.0-7.5) 04/08/17 22:30 Ur Specific [place] 1.016 (1.002-1.030) 04/08/17 22:30 Urine Protein 2+ (NEGATIVE) H 04/08/17 22:30 Urine Ketones TRACE (NEGATIVE) H 04/08/17 22:30 Urine Blood 3+ (NEGATIVE) H 04/08/17 22:30 Urine Nitrate NEGATIVE (NEGATIVE) 04/08/17 22:30 Urine Bilirubin NEGATIVE (NEGATIVE) 04/08/17 22:30 Urine Urobilinogen NEGATIVE EU (0.2-1.0) 04/08/17 22:30 Ur Leukocyte Esterase 3+ (NEGATIVE) H 04/08/17 22:30 Urine RBC 50-182 /hpf (0-3) H 04/08/17 22:30 Urine WBC 50-182 /hpf (0-3) H 04/08/17 22:30 Ur Epithelial Cells TRACE /lpf (NONE-1+) 04/08/17 22:30 Urine Yeast PRESENT /hpf (NONE SEEN) 04/08/17 22:30 Urine Glucose NEGATIVE (NEGATIVE) 04/08/17 22:30 Imaging Review: CTPE with no evidence of PE or acute pneumonia. Visualized and Interpreted EKG results: Yes EKG Interpretation: Positive for: normal sinsus rhythm, right bundle branch block Assessment & Plan Assessment: 81 yo F w/ hx of COPD, CHB s/p PPM, and L hip PJI presented with lightheadedness and falls who required intubation in ED due to apnea of unclear etiology. Plan: 1. Acute on chronic hypoxic respiratory failure - Emergently intubated in the ED during reported period of apnea. I suspect etiology is multifactorial; likely 2/2 acute encephalopathy from infectious process (UTI vs. PJI) in the setting of severe baseline respiratory disease. CTPE negative for PE or acute pneumonia. Additionally, clear breath sounds not consistent with significant COPD exacerbation. - Wean ventilator as able 2. UTI - Grossly infectious UA on admission, unable to assess symptoms due to emergent intubation and lack of HPI. Lactate WNL. - Blood and urine cultures obtained - CTX 1g qD 3. Hx of L hip PJI - Prescribed chronic, suppressive doxycycline during last admission in November of 2016, unclear if patient has been taking this. - Blood cultures - Vancomycin IV for now in the setting of critical illness 4. Hx CHB s/p PPM - RBBB w/ underlying NSR on admission ECG c/w A-sensed, V- paced rhythm as expected. 5. COPD - Uses 3 L/min O2 via NC continuously at baseline. No evidence of acute exacerbation. Diet - NPO Code - Full Ppx - H2B IV BID, LMWH Dispo - Admit to ICU, inpatient status noting need for intubation and IV antibiotics I personally spent 60 minutes of critical care time interpreting studies, evaluating patient, and coordinating care.
[2017-04-09 04:14] LABS: PLATELET COUNT 258 10^3/uL (150-400)
[2017-04-09] MEDS: ENOXAPARIN 40 MG/0.4 ML SYR SC SCH (08:39)
[2017-04-09] MEDS ORDERED: FAMOTIDINE 20 MG/NACL 50 ML IV SCH (09:00)
[2017-04-09] MEDS ORDERED: CHLORHEXIDINE GLUCONATE 15 ML UDL PO SCH (09:00)
--- NOTE | 2017-04-09 09:03 | HOSPPROG ---
Hospitalist Progress Note Assessment/Plan: DIAGNOSES: # Acute on chronic hypoxic respiratory failure - Emergently intubated in the ED during reported period of apnea. -improving, currently doing reasonably well on CPAP on the vent with good weaning parameters and is awake wishing to be extubated -suspect COPD exacerbation with or without pulmonary infection, as well as decreased mentation from infectious process # possible right lower lobe pneumonia, community-acquired # Complicated UTI , with marked pyuria -cultures pending, currently empiric Ceftriaxone 1g/d # Hx of L hip prosthetic joint infection - chronic suppressive doxycycline since November of 2016, unclear if patient has been taking this. - Blood cultures pending - Vancomycin IV for now in the setting of critical illness # anemia with significant decrease in hemoglobin overnight, high normal MCV ( baseline hemoglobin 11.5 now 8) - no overt signs of bleeding so far -will need recheck and watch her hemodynamics carefully and for signs of any overt bleeding # elevated D-dimer and indeterminate troponin; has ruled out for PE, the troponin is most likely related to stress of acute illness and coronary assessment not currently indicated # Hx third-degree heart block s/p PPM currently paced rhythm # COPD - Uses 3 L/min O2 via NC continuously at baseline. PLANS: -continue attempts to wean from ventilator which we may be able to do today -continue bronchodilators and pulmonary toilet -continue empiric antibiotics for UTI, that will add coverage for atypical infection and K she has right lower lobe pneumonia -will try an clarify whether she has been taking her doxycycline at home and determine whether to resume that are continue vancomycin at this time; she will need chronic ongoing doxycycline probably for lifetime at home -DVT and PUD prophylaxis on meds for both Reviewed in detail today with Dr. Jose Robert Seen on multidisciplinary rounds as well SUBJECTIVE: Patient is awake and communicating by head shake and border radiating, main complaint is sore throat from oral tracheal tube No other discomforts OBJECTIVE Vitals reviewed: Current respiratory rate 22 on CPAP on the ventilator, blood pressure pulse stable, no current fever Fabrication Machine Operator, my review: Sinus Exam: On mechanical ventilator set CPAP, or tracheal tube in good position and secured alert oriented mildly anxious skin warm dry color ok lungs very diminished but otherwise clear BSs heart regular abd soft nondistended nontender, bowel sounds present limbs warm, no edema iv site ok Laboratory data: Troponin remains indeterminate Hemoglobin dropped from 11.7 to 8.7 with most recent baseline of 11.5 Microbiology: Cultures all pending CT scan chest done last night in the ER, I reviewed the images myself, my interpretation: There is no PE, there is abnormality in the right lower lobe which certainly include some atelectasis hard to rule out infiltrate Objective: Vital Signs Temp Pulse Resp BP Pulse Ox 36.8 C 79 16 101/43 L 100 04/09/17 08:00 04/09/17 08:50 04/09/17 08:50 04/09/17 08:00 04/09/17 08:50 Laboratory Results 04/09/17 04:00 04/09/17 04:00 04/08/17 04/09/17 04/10/17 06:59 06:59 06:59 Intake Total 1883.9 Balance 1883.9 PT 15.4 SEC (12.0-15.0) H 04/08/17 21:45 INR 1.22 (0.83-1.16) H 04/08/17 21:45 - Time Spent With Patient Time Spent with Patient: greater than 35 minutes Time Spent with Patient: Greater than 35 minutes spent on this patients care, greater than 50% of time spent counseling, educating, and coordinating care regarding the above mentioned plan. ICD10 Worksheet Patient Problems: Problems Problem Status Onset Acute respiratory failure Acute Elevated troponin Acute Abdominal pain Acute Abdominal pain Acute Back pain Acute COPD (chronic obstructive pulmonary disease) Acute Chest discomfort Acute Chronic left hip pain Acute Complete heart block Acute Dyspnea Acute Dyspnea Acute Gastric ulcer with perforation Acute Generalized weakness Acute Hip dislocation, left Acute Hypoxemia Acute Nausea Acute Osteoporosis Acute S/P hip replacement Acute Syncope Acute
[2017-04-09] MEDS ORDERED: IPRATROPIUM/ALBUTEROL 3 ML DEYVIAL IH PRN (09:35)
--- NOTE | 2017-04-09 10:11 | GCON ---
[f rep st] CONSULTATION DISTRIBUTOR OF DIRECTORIES CONSULTATION REASON FOR ADMISSION: Acute respiratory failure, multiple falls. HISTORY OF PRESENT ILLNESS: The patient is a 81-year-old, white female with a past medical history i ncluding chronic obstructive pulmonary disease. She presented from home with complaints of lighthead edness and dizziness. She became apneic while in the emergency room, required emergent intubation. She is currently sedated and on mechanical ventilation. All history is gleaned from the medical [address]. Apparently, in November this year, she had MRSE of the left hip. PAST MEDICAL HISTORY: Only known for MRSE of the left hip and chronic obstructive pulmonary disease. PAST SURGICAL HISTORY: Pacemaker AICD placed and some form of spinal surgery. ALLERGIES: Extensive and include: Celebrex, Cymbalta, Levaquin, Septra, aspirin, Keflex, Biaxin, co deine, Vicodin, tetracyclines, Augmentin, Cipro, Zyvox. MEDICATIONS: At home include: Ascorbic acid, calcium carbonate, Senokot, Fosamax, Wellbutrin, Benad ryl, Ventolin, gabapentin, dicyclomine, cholecalciferol, DuoNebs, oxycodone, and levothyroxine, and A dvair. PHYSICAL EXAM: VITAL SIGNS: Blood pressure is 129/55, pulse 90, respirations 15, temperature is 36. 8, oxygen saturation 100% on mechanical ventilation. GENERAL: She is a thin, elderly white female w ho is sedated and on mechanical ventilation. HEENT: Eyes PERRL. EOMI. Throat endotracheal tube is in good position. NECK: Supple. No cervical adenopathy. HEART: Regular rate and rhythm with a 2 /6 systolic murmur left sternal border without radiation. LUNGS: Diminished breath sounds, but no w heeze. ABDOMEN: Soft, nontender. Bowel sounds are present in all 4 quadrants. EXTREMITIES: No cl ubbing, cyanosis, or edema. LABORATORIES: White count 9.9, hemoglobin 8.2, hematocrit 27, platelet count 258. Sodium 136, potas sium 4.2, chloride 102, CO2 21, BUN 19, creatinine 0.8, glucose is 80. Arterial blood gas, pH is 7.2 7, pCO2 44, PO2 122, bicarb 21, oxygen saturation 98%. This is on an IMV of 14, tidal volume 400, +1 0 of pressure support, +[address] angiogram of the chest reveals no evidence of pulmonary embolus. She has a right lower lobe opaci fication that is likely scarring. She also has central lobular emphysema. IMPRESSION: 1. Acute respiratory failure. 2. Chronic obstructive pulmonary disease with acute exacerbation. 3. Multiple falls, etiology of which is unclear. 4. Status post pacemaker/automatic implantable cardioverter defibrillator placement. RECOMMENDATIONS: 1. We will hold sedation and assess patient for extubation including CPAP trial and weaning paramete rs. 2. DVT and PE prophylaxis. 3. Stress ulcer prophylaxis. 4. We will start IV steroids. 5. Frequent nebulized treatment with both albuterol and Atrovent. 6. We will continue current antibiotic coverage for now. /[id number]/MODL
[2017-04-09] MEDS ORDERED: ALBUTEROL 60 PUFFS/8 GM MDI IH PRN (11:33)
[2017-04-09] MEDS ORDERED: ALBUTEROL 3 ML DEYVIAL IH PRN (11:33)
[2017-04-09] MEDS: FLUTICASONE/SALMETER 500/50MCG DISKUS IH SCH ×2 (11:50→23:47)
[2017-04-09] MEDS: IPRATROPIUM/ALBUTEROL 3 ML DEYVIAL IH SCH ×3 (11:50→23:43)
[2017-04-09] MEDS: buPROPion XL 150 MG TAB PO SCH (12:00)
[2017-04-09] MEDS: DOXYCYCLINE HYCLATE 100 MG CAP/TAB PO SCH (12:00)
[2017-04-09] MEDS: methylPREDNISolone SOD SUCC 125 MG/2 ML VIAL IVP SCH ×2 (12:07→17:58)
--- NOTE | 2017-04-09 12:22 | PDMN ---
Medical Necessity Medical necessity: Est los >2 mn for eval/tx of acute on chronic hypoxic respiratory failure requiring emergent intubation, acute encephalopathy, UTI; hx L hip PJI, COPD, CHB; per H&P 04/08/17
[2017-04-09 12:25] LABS: PLATELET COUNT 263 10^3/uL (150-400)
--- NOTE | 2017-04-09 12:59 | WOCRNPDOC ---
WOCRN Advanced Assessment Note - Skin Integrity Problem, Advanced Assess Left Lower Leg Dressing Type: Allevyn Life Dressing Description: Clean/Dry, Intact Closure Description: Not Approximated Exudate Amount: Minimal Exudate Characteristic(s): Serosanguinous Integumentary Issue Intervention: Dressing Removed Chandrika Wound Tissue: Contused Chandrika Wound Swelling: Mild Wound Bed Color: Black, [place], Yellow Wound Bed Constitution: Smooth Tissue, Subcutaneous Fat Wound Edges: Attached, Well Defined Site Measurement - Head-to-Toe Length X Width X Depth (cm): 1.6cmx1.4cmx0.2cm Skin Integrity Problem Comment: Patient with a full thickness skin tear present on admission. Wound care asked to consult because of depth of wound. Wound cleaned with NS and gauze and measured. Likely because of length of time from injury, skin flap adhered and unable to cover wound bed. Skin tear policy appropriate for this wound. MIKEL Gomes in room and aware of plan. Wound care will not continue to follow. Please reconsult PRN.
--- NOTE | 2017-04-09 15:07 | ASMTCMCOM ---
CM Note CM Note Notes: Chart reviewed. Pt admitted s/p multiple falls via ED then experienced respiratory distress requiring intubation. She is now extubated. I met with her to assess her needs. She lives alone with her dog. She has an ex who we called from her room to ask that he go look after her dog. He called me to report inability to access condo due to lock box on door. Patient gives me the name of a neighbor who can help but she has no number. I called and spoke with property management and inquired about Alex Holland. She does have contact info and i asked that she call and give him my number. The patient does not want her ex to have the lock box number, I did speak with her friend Alex Holland and she spoke to him and is agreeable to care for her dog. Hip xray pending current NTBD. CM to follow. Date Signed: 04/09/2017 03:06 PM Electronically Signed By:Leigh Perez RN
--- NOTE | 2017-04-09 15:50 | ASMTCMCOM ---
CM Note CM Note Notes: Spoke with Jennifer from [facility] where pt is current with [facility] she has PT and OT but no RN . They have stated concerns about her ability to make good judgements. She is very weak and lives on [address] floor. She has a large dog. She cannot tell me if patient using assistive devices. CM to follow. Date Signed: 04/09/2017 03:49 PM Electronically Signed By:Leigh Perez RN
--- NOTE | 2017-04-09 15:50 | ASMTCMCOM ---
CM Note CM Note Notes: Spoke with Jennifer from [facility] where pt is current with [facility] she has PT and OT but no RN . They have stated concerns about her ability to make good judgements. She is very weak and lives on [address] floor. She has a large dog. She cannot tell me if patient using assistive devices. CM to follow. Date Signed: 04/09/2017 03:49 PM Electronically Signed By:Leigh Perez RN
--- NOTE | 2017-04-09 15:50 | ASMTCMCOM ---
CM Note CM Note Notes: Spoke with Jennifer from [facility] where pt is current with [facility] she has PT and OT but no RN . They have stated concerns about her ability to make good judgements. She is very weak and lives on [address] floor. She has a large dog. She cannot tell me if patient using assistive devices. CM to follow. Date Signed: 04/09/2017 03:49 PM Electronically Signed By:Leigh Perez RN
[2017-04-09] MEDS: morphINE SR 15 MG TAB PO SCH ×3 (16:37→23:11)
[2017-04-09] MEDS: CHOLECALCIFEROL VIT D3 1,000 UNITS TAB PO SCH (23:07)
[2017-04-09] MEDS: ASCORBIC ACID 500 MG TAB PO SCH (23:07)
[2017-04-09] MEDS: GABAPENTIN 300 MG CAP PO SCH (23:07)
[2017-04-09] MEDS: diphenhydrAMINE 25 MG CAP PO SCH (23:10)
[2017-04-09] MEDS: SENNOSIDES 1 TAB PO SCH (23:11)
[2017-04-10] MEDS ORDERED: VANCOMYCIN 750 MG in D5W 150 ML IV SCH
[2017-04-10] MEDS: methylPREDNISolone SOD SUCC 125 MG/2 ML VIAL IVP SCH ×2 (00:05→07:38)
[2017-04-10] MEDS: IPRATROPIUM/ALBUTEROL 3 ML DEYVIAL IH SCH ×3 (05:21→15:49)
[2017-04-10] MEDS: LEVOTHYROXINE 50 MCG TAB PO SCH (07:38)
[2017-04-10] MEDS: DOXYCYCLINE HYCLATE 100 MG CAP/TAB PO SCH (08:45)
[2017-04-10] MEDS: ASCORBIC ACID 500 MG TAB PO SCH ×2 (08:45→21:28)
[2017-04-10] MEDS: morphINE SR 15 MG TAB PO SCH ×3 (08:46→21:37)
[2017-04-10] MEDS: GABAPENTIN 300 MG CAP PO SCH ×2 (08:46→21:27)
[2017-04-10] MEDS: PANTOPRAZOLE SODIUM 40 MG TAB PO SCH (08:46)
[2017-04-10] MEDS: CHOLECALCIFEROL VIT D3 1,000 UNITS TAB PO SCH ×2 (08:46→21:27)
[2017-04-10] MEDS: buPROPion XL 150 MG TAB PO SCH (08:46)
--- NOTE | 2017-04-10 08:47 | PDINTPN ---
Assistant Strength Coach Progress Note Assessment/Plan: Assessment: * Acute respiratory failure-stable off mechanical ventilation * Chronic obstructive pulmonary disease * History of falls * Hip pain-chest x-ray is negative * Nutrition-adequate * PT/OT Plan: Will transfer patient to floor Continue frequent nebs Discussed code status with patient-she wishes to think about Patient should follow up with operations program manager as an outpatient Subjective: Resting comfortably. Breathing easily off mechanical ventilation Objective: Vital Signs Temp Pulse Resp BP Pulse Ox 37.2 C 78 16 110/43 L 98 04/09/17 20:00 04/10/17 06:00 04/10/17 06:00 04/10/17 06:00 04/10/17 06:00 Microbiology 04/08/17 23:14 Blood Panel (PCR) - Final Blood Staph Coagulase Negative Laboratory Results 04/09/17 12:15 04/09/17 04:00 04/09/17 04/10/17 04/11/17 05:59 05:59 05:59 Intake Total 1883.9 950 Output Total 850 Balance 1883.9 100 PT 15.4 SEC (12.0-15.0) H 04/08/17 21:45 INR 1.22 (0.83-1.16) H 04/08/17 21:45 Physical Exam - Physical Exam General Appearance: alert, no apparent distress, thin EENT: PERRL/EOMI, normal ENT inspection Neck: non-tender, full range of motion, supple, normal inspection Respiratory: decreased breath sounds, prolonged expiration, No respiratory distress, No wheezing Cardiac/Chest: normal peripheral pulses, regular rate, rhythm Peripheral Pulses: 2+: carotid (R), carotid (L), femoral (R), femoral (L), dorsalis-pedis (R), dorsalis-pedis (L) Abdomen: normal bowel sounds, non-tender, soft Pelvic Exam: deferred Rectal: deferred Extremities: normal range of motion, non-tender, normal inspection, normal capillary refill Neuro/Psych: no motor/sensory deficits, alert, normal mood/affect, oriented x 3 ICD10 Worksheet Patient Problems: Problems Problem Status Onset Acute respiratory failure Acute Elevated troponin Acute Abdominal pain Acute Abdominal pain Acute Back pain Acute COPD (chronic obstructive pulmonary disease) Acute Chest discomfort Acute Chronic left hip pain Acute Complete heart block Acute Dyspnea Acute Dyspnea Acute Gastric ulcer with perforation Acute Generalized weakness Acute Hip dislocation, left Acute Hypoxemia Acute Nausea Acute Osteoporosis Acute S/P hip replacement Acute Syncope Acute
[2017-04-10] MEDS: ENOXAPARIN 40 MG/0.4 ML SYR SC SCH (10:13)
[2017-04-10] MEDS: FLUTICASONE/SALMETER 500/50MCG DISKUS IH SCH ×2 (11:11→22:01)
[2017-04-10] MEDS ORDERED: predniSONE 20 MG TAB PO SCH (12:00)
[2017-04-10] MEDS: predniSONE 20 MG TAB PO SCH (12:13)
[2017-04-10] MEDS: IBUPROFEN 200 MG TAB PO SCH ×2 (13:19→21:28)
--- NOTE | 2017-04-10 14:22 | ASMTCMCOM ---
CM Note CM Note Notes: Per PT and OT notes recommendation is SNF rehab upon discharge. Met with patient to review discharge plan of care. She is resistant to rehab but if it is necessary she would like to go to [facility] as she had been there in the past. She is very concerned over the care of her dog. Currently her friend Alex Holland is caring for the dog. Referral will be made for [place]Patient to transfer to med surg. CM to follow. Spoke with Jennifer from [facility] where pt is current with [facility] she has PT and OT but no RN . They have stated concerns about her ability to make good judgements. She is very weak and lives on [address] floor. She has a large dog. She cannot tell me if patient using assistive devices. CM to follow. Date Signed: 04/10/2017 02:20 PM Electronically Signed By:Leigh Perez RN
--- NOTE | 2017-04-10 14:22 | ASMTCMCOM ---
CM Note CM Note Notes: Per PT and OT notes recommendation is SNF rehab upon discharge. Met with patient to review discharge plan of care. She is resistant to rehab but if it is necessary she would like to go to [facility] as she had been there in the past. She is very concerned over the care of her dog. Currently her friend Alex Holland is caring for the dog. Referral will be made for [place]Patient to transfer to med surg. CM to follow. Spoke with Jennifer from [facility] where pt is current with [facility] she has PT and OT but no RN . They have stated concerns about her ability to make good judgements. She is very weak and lives on [address]. floor. She has a large dog. She cannot tell me if patient using assistive devices. CM to follow. Date Signed: 04/10/2017 02:20 PM Electronically Signed By:Leigh Perez RN
--- NOTE | 2017-04-10 14:22 | ASMTCMCOM ---
CM Note CM Note Notes: Per PT and OT notes recommendation is SNF rehab upon discharge. Met with patient to review discharge plan of care. She is resistant to rehab but if it is necessary she would like to go to [facility] as she had been there in the past. She is very concerned over the care of her dog. Currently her friend Alex Holland is caring for the dog. Referral will be made for [place]Patient to transfer to med surg. CM to follow. Spoke with Jennifer from [facility] where pt is current with [facility] she has PT and OT but no RN . They have stated concerns about her ability to make good judgements. She is very weak and lives on [address]. floor. She has a large dog. She cannot tell me if patient using assistive devices. CM to follow. Date Signed: 04/10/2017 02:20 PM Electronically Signed By:Leigh Perez RN
[2017-04-10] MEDS: OXYCODONE/APAP 5/325 TAB PO PRN ×2 (14:40→18:25)
--- NOTE | 2017-04-10 15:34 | HOSPPROG ---
Hospitalist Progress Note Assessment/Plan: 81 yo F w/ hx of COPD, CHB s/p PPM, and L hip PJI presented with lightheadedness and falls who required intubation in ED due to apnea of unclear etiology. Plan: 1. Acute on chronic hypoxic respiratory failure (resolved) 2. UTI - Grossly infectious UA on admission, unable to assess symptoms due to emergent intubation and lack of HPI. Lactate WNL. - urine culture No growth - Cont CTX 1g qD 3. Hx of L hip PJI with 1/2 cultures positive for coag neg staph -consult ID - Blood cultures - will defer dc'ing Vancomycin to ID 4. Hx CHB s/p PPM - RBBB w/ underlying NSR on admission ECG c/w A-sensed, V- paced rhythm as expected. 5. COPD - Uses 3 L/min O2 via NC continuously at baseline. No evidence of acute exacerbation. 6. left shoulder pain doubt septic joint but it remains in the differential, will order an xray to eval for fx Diet - NPO Code - Full Ppx - H2B IV BID, LMWH Dispo -transfer to med surg case d/w Dr. Talamantes Subjective: reports new left shoulder pain. unsure of trauma Objective: Vital Signs Temp Pulse Resp BP Pulse Ox 37.3 C 95 16 113/61 98 04/10/17 14:31 04/10/17 14:31 04/10/17 14:31 04/10/17 14:31 04/10/17 14:31 Microbiology 04/08/17 23:14 Blood Panel (PCR) - Final Blood Staph Coagulase Negative Laboratory Results 04/09/17 12:15 04/09/17 04:00 04/09/17 04/10/17 04/11/17 05:59 05:59 05:59 Intake Total 1883.9 950 Output Total 850 Balance 1883.9 100 PT 15.4 SEC (12.0-15.0) H 04/08/17 21:45 INR 1.22 (0.83-1.16) H 04/08/17 21:45 Microbiology 04/08/17 23:14 Blood Blood Panel (PCR) - Final Staph Coagulase Negative 04/09/17 06:30 Urine,Catheterized Urine Culture - Preliminary Catherine Glabrata 04/08/17 23:14 Blood Blood Culture - Preliminary 04/08/17 23:14 Blood Staphylococcus Sp Coag Neg - Physical Exam Constitutional: no apparent distress, appears nourished, not in pain Cardiovascular: regular rate and rhythym, no murmur, rub, or gallop Respiratory: no respiratory distress, no rales or rhonchi, clear to auscultation Gastrointestinal: normoactive bowel sounds, soft, non-tender abdomen, no palpable masses Musculoskeletal: other (no pain with passive left shoulder flexion but does have pain at >90) ICD10 Worksheet Patient Problems: Problems Problem Status Onset Acute respiratory failure Acute Elevated troponin Acute Abdominal pain Acute Abdominal pain Acute Back pain Acute COPD (chronic obstructive pulmonary disease) Acute Chest discomfort Acute Chronic left hip pain Acute Complete heart block Acute Dyspnea Acute Dyspnea Acute Gastric ulcer with perforation Acute Generalized weakness Acute Hip dislocation, left Acute Hypoxemia Acute Nausea Acute Osteoporosis Acute S/P hip replacement Acute Syncope Acute
--- NOTE | 2017-04-10 18:14 | GCON ---
[f rep st] CONSULTATION INFECTIOUS DISEASES CONSULTATION DATE OF CONSULTATION: 04/10/2017 REQUESTED BY: Ephraim Moctezuma DO REASON FOR CONSULTATION: Possible sepsis. 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 Patient was admitted on 04/08/2017 after susta ining repeated falls. She describes having lightheadedness and dizziness around the time of her fall s. The most recent fall has led to significant bruising over the right hip. During the patient's ev aluation in the emergency department, she developed apnea which required emergent intubation. CT sca n of the chest did not show evidence of pneumonia or pulmonary embolism. The patient was noted to tovar ve a mild leukocytosis as well as pyuria prompting initiation of antibiotic therapy in the event seps is was contributing. She was started on both vancomycin and ceftriaxone, with her suppressive doxycy vines being continued. The patient now has been extubated and does not note any cough or chest pain prior to presentation. She has chronic shortness of breath on long-term oxygen therapy. She notes t hat she had a dull ache in her suprapubic region with urination prior to admission, but no dysuria, a s she has experience in the past with UTIs. She did not have any change in her urinary frequency or evidence of urgency. She did have 1 episode of nausea with dry heaves but no vomiting or diarrhea. She complains of left shoulder pain which she notes has been present over the last month. She has de creased range of motion of her shoulder being present. Blood cultures obtained at the time of admiss ion have 1 of 4 bottles showing growth of coagulase-negative Staphylococcus. Urine culture is curren tly pending. The patient has not demonstrated any fever since hospital admission. Given the above f indings, I am now asked to assist in her ongoing management. 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 PAST SURGICAL HISTORY: Bilateral hip replacement, nephrostomy tube placement, repair of perforated p eptic ulcer, cataract, and tonsillectomy. ALLERGIES: Augmentin (patient believes this was associated with nausea, although her outpatient humph[address] rd shows throat closure), cephalosporins (associated with stomach pain and vomiting), Ciprofloxacin ( associated with vomiting), Clindamycin, Cymbalta, levofloxacin (associated with throat closure), , pr ednisone (associated glaucoma, not a true allergy), sulfonamides (associated with nausea and vomiting ). CURRENT MEDICATIONS: Vancomycin 750 mg IV daily, ceftriaxone 1 g IV daily, doxycycline 100 mg p.o. d aily, albuterol inhaler 2 puffs daily, DuoNeb q.6 hours, Fosamax 70 mg p.o. weekly, vitamin C 1000 mg p.o. b.i.d., Wellbutrin XL 300 mg p.o. daily, vitamin D 1,000 units p.o. b.i.d., Lovenox 40 mg subcu daily, Neurontin 600 mg p.o. b.i.d., Motrin 400 mg p.o. t.i.d., Synthroid 50 mcg p.o. daily, MS Cont in 15 mg p.o. t.i.d., Protonix 40 mg p.o. daily, prednisone 40 mg p.o. daily, Advair 1 puff b.i.d. SOCIAL HISTORY: Patient quit smoking many years ago. Rare alcohol intake. Pet dog at home. No rec ent travel. FAMILY HISTORY: Coronary artery disease, stroke. REVIEW OF SYSTEMS: Outside that noted in the HPI, the remainder of 10 system review is unremarkable. PHYSICAL EXAMINATION: VITAL SIGNS: Temperature 37.3, heart rate 89, respiratory rate 18, blood pres sure 113/61, oxygen saturation 97% on 3 L. GENERAL: Patient is chronically ill-appearing, in no acu te distress. She appears nontoxic. HEENT: There is no scleral icterus, conjunctival injection, or conjunctival petechiae. Oropharynx shows poor dentition. Mucous membranes are dry. No thrush prese nt. No nasal discharge. No tenderness over the frontal, maxillary, or mastoid area. NECK: Supple without palpable lymphadenopathy or thyromegaly. CHEST: Clear to auscultation bilaterally without a dventitious sounds. Respiratory effort is normal. CARDIOVASCULAR: Regular rate and rhythm with a 2 /6 systolic murmur heard throughout. No gallops or rubs noted. ABDOMEN: Soft, nontender, nondisten ded. No palpable organomegaly. Bowel sounds are present. BACK: Right-sided flank pain where ecchy mosis is present after fall. MUSCULOSKELETAL: The left hip shows no erythema, warmth or tenderness, with intact incision line; the right hip shows extensive ecchymoses present with mild tenderness. N o erythema. Left shoulder is tender posteriorly but not over joint, without erythema or warmth; rang e of motion is limited. SKIN: See musculoskeletal exam. No stigmata of endocarditis. The skin is warm and dry to touch. NEUROLOGIC: Patient is alert and interacts appropriately with the examiner. Cranial nerves 2-12 are grossly intact. Sensation is grossly intact. Muscle tone and bulk are norm al. LYMPHATICS: No cervical or supraclavicular nodes palpable. LABORATORY DATA: White blood cell count 10.2, hematocrit 23.8, platelets 263, neutrophils 83%. Seru m creatinine is 0.8, AST 27, ALT 27, alkaline phosphatase 71, bilirubin 0.3, albumin 2.4. Venous lact ate us 1.4 at time of presentation. Urinalysis shows 50-182 white blood cells and 50-182 red blood c ells with trace yeast on urinalysis. Chest CT shows no evidence of PE with right lower lobe opacity, likely due to atelectasis or scar. IMPRESSION: 1. Leukocytosis: Patient with mild leukocytosis which she has had in the past. Unclear if this is potentially due to infectious etiology in association with her presentation. She does have pyuria on her urinalysis, although did not describe symptoms she felt were compatible with urinary tract infec tion prior to presentation. No other localizing findings, other than poor dentition and left shoulde r pain. Suspect left shoulder pain is more likely mechanical in etiology rather than being due to se ptic arthritis. 2. Positive blood culture for coagulase-negative Staphylococcus: Only 1 of 4 bottles positive makin g this most consistent with contaminant rather than true pathogen. Does have indwelling prostheses i n both hips as well as pacemaker, which will be kept in mind. We will repeat blood cultures to asses s for higher grade bacteremia; although, patient has been on antibiotics. Favor observing off vancom ycin in interim. RECOMMENDATIONS: 1. Continue ceftriaxone 1 g IV daily. 2. Discontinue vancomycin. 3. Blood cultures x2. 4. Check procalcitonin. 5. Follow up cultures as available. Thank you for this consultation. We will continue to follow the patient with you. /[id number]/MODL
[2017-04-10] MEDS: diphenhydrAMINE 25 MG CAP PO SCH (21:27)
[2017-04-10] MEDS: SENNOSIDES 1 TAB PO SCH (21:29)
[2017-04-11] MEDS: IPRATROPIUM/ALBUTEROL 3 ML DEYVIAL IH SCH ×5 (00:10→20:46)
[2017-04-11] MEDS: LEVOTHYROXINE 50 MCG TAB PO SCH (05:19)
[2017-04-11] MEDS: ENOXAPARIN 40 MG/0.4 ML SYR SC SCH (10:09)
[2017-04-11] MEDS: CHOLECALCIFEROL VIT D3 1,000 UNITS TAB PO SCH ×2 (10:10→22:01)
[2017-04-11] MEDS: ASCORBIC ACID 500 MG TAB PO SCH ×2 (10:10→21:59)
[2017-04-11] MEDS: morphINE SR 15 MG TAB PO SCH ×3 (10:10→22:01)
[2017-04-11] MEDS: DOXYCYCLINE HYCLATE 100 MG CAP/TAB PO SCH (10:10)
[2017-04-11] MEDS: predniSONE 20 MG TAB PO SCH (10:10)
[2017-04-11] MEDS: OXYCODONE/APAP 5/325 TAB PO PRN (10:10)
[2017-04-11] MEDS: GABAPENTIN 300 MG CAP PO SCH ×2 (10:11→22:01)
[2017-04-11] MEDS: PANTOPRAZOLE SODIUM 40 MG TAB PO SCH (10:11)
[2017-04-11] MEDS: IBUPROFEN 200 MG TAB PO SCH ×3 (10:11→21:59)
[2017-04-11] MEDS: buPROPion XL 150 MG TAB PO SCH (10:11)
[2017-04-11] MEDS: FLUTICASONE/SALMETER 500/50MCG DISKUS IH SCH ×2 (10:33→20:40)
--- NOTE | 2017-04-11 14:53 | HOSPPROG ---
Hospitalist Progress Note Assessment/Plan: 1. Acute on chronic hypoxic respiratory failure (resolved) - s/p extubation 2. UTI - Grossly infectious UA on admission, unable to assess symptoms due to emergent intubation and lack of HPI. Lactate WNL. - urine culture No growth - Cont CTX 1g qD 3. Hx of L hip PJI with 1/2 cultures positive for coag neg staph - doubt hip infection - repeat Blood cultures pending - chronic doxycycline suppression 4. Hx CHB s/p PPM 5. COPD - Uses 3 L/min O2 via NC continuously at baseline. No evidence of acute exacerbation. 6. left shoulder pain doubt septic joint - suspect DJD Subjective: no complaints. Objective: Vital Signs Temp Pulse Resp BP Pulse Ox 36.5 C 90 17 126/76 H 83 L 04/11/17 09:58 04/11/17 10:34 04/11/17 09:58 04/11/17 09:58 04/11/17 11:55 Microbiology 04/09/17 06:30 Urine Culture - Final Urine,Catheterized Catherine Glabrata 04/08/17 23:14 Blood Panel (PCR) - Final Blood Staph Coagulase Negative Laboratory Results 04/09/17 12:15 04/09/17 04:00 04/10/17 04/11/17 04/12/17 05:59 05:59 05:59 Intake Total 950 800 450 Output Total 850 Balance 100 800 450 PT 15.4 SEC (12.0-15.0) H 04/08/17 21:45 INR 1.22 (0.83-1.16) H 04/08/17 21:45 - Physical Exam Constitutional: no apparent distress, appears nourished, not in pain Cardiovascular: regular rate and rhythym, no murmur, rub, or gallop Respiratory: no respiratory distress, no rales or rhonchi, clear to auscultation Gastrointestinal: normoactive bowel sounds, soft, non-tender abdomen, no palpable masses Skin: no rashes or abrasions, no fluctuance, no induration Neurologic: AAOx3, sensation intact bilaterally Psychiatric: interacting appropriately, not anxious, not encephalopathic, thought process linear ICD10 Worksheet Patient Problems: Problems Problem Status Onset Acute respiratory failure Acute Elevated troponin Acute Abdominal pain Acute Abdominal pain Acute Back pain Acute COPD (chronic obstructive pulmonary disease) Acute Chest discomfort Acute Chronic left hip pain Acute Complete heart block Acute Dyspnea Acute Dyspnea Acute Gastric ulcer with perforation Acute Generalized weakness Acute Hip dislocation, left Acute Hypoxemia Acute Nausea Acute Osteoporosis Acute S/P hip replacement Acute Syncope Acute
--- NOTE | 2017-04-11 16:44 | ASMTCMCOM ---
CM Note CM Note Notes: [facility] has tentatively accepted pt pending ins eval and more info. Pt concerned about her dog so she will need to work out those details before DC. C/M to follow. Date Signed: 04/11/2017 04:43 PM Electronically Signed By:Ute Li LCSW
--- NOTE | 2017-04-11 19:31 | PCMIDPN ---
Assessment/Plan: Assessment/Plan: * Leukocytosis with elevated procalcitonin: Unclear etiology for clinical findings with blood culture showing 1/4 bottles of coagulase-negative Staphylococcus consistent with contamination and urine culture showing growth of yeast which is unlikely etiology for above findings. Will continue ceftriaxone and repeat procalcitonin in a.m. to see if this has normalized; if so, plan to discontinue ceftriaxone. 04/11/17 19:29 Subjective: Patient feels weak. No dysuria. Mild cough. Objective: Vital Signs Temp Pulse Resp BP Pulse Ox 36.8 C 101 H 14 111/53 L 92 04/11/17 15:55 04/11/17 15:55 04/11/17 15:55 04/11/17 15:55 04/11/17 16:03 Microbiology 04/09/17 06:30 Urine Culture - Final Urine,Catheterized Catherine Glabrata 04/08/17 23:14 Blood Panel (PCR) - Final Blood Staph Coagulase Negative Laboratory Results 04/09/17 12:15 04/09/17 04:00 04/10/17 04/11/17 04/12/17 05:59 05:59 05:59 Intake Total 950 800 750 Output Total 850 Balance 100 800 750 Ceftriaxone # 3 Blood cultures 1/4 bottles with Staphylococcus hominis Blood cultures 04/10/2017 pending Urine culture with growth of greater than 100,000 Catherine glabrata - Physical Exam General Appearance: alert, no apparent distress EENT: No scleral icterus, No thrush, No conjunctival petechiae Respiratory: lungs clear, No respiratory distress Cardiac/Chest: regular rate, rhythm Extremities: other (Large ecchymosis over right hip without cellulitis) Abdomen: non-tender, No distended Skin: No embolic lesions ICD10 Worksheet Patient Problems: Problems Problem Status Onset Acute respiratory failure Acute Elevated troponin Acute Abdominal pain Acute Abdominal pain Acute Back pain Acute COPD (chronic obstructive pulmonary disease) Acute Chest discomfort Acute Chronic left hip pain Acute Complete heart block Acute Dyspnea Acute Dyspnea Acute Gastric ulcer with perforation Acute Generalized weakness Acute Hip dislocation, left Acute Hypoxemia Acute Nausea Acute Osteoporosis Acute S/P hip replacement Acute Syncope Acute
[2017-04-11] MEDS: diphenhydrAMINE 25 MG CAP PO SCH (22:01)
[2017-04-11] MEDS: SENNOSIDES 1 TAB PO SCH (22:02)
[2017-04-12] MEDS: LEVOTHYROXINE 50 MCG TAB PO SCH (05:03)
[2017-04-12 05:23] LABS: PLATELET COUNT 293 10^3/uL (150-400)
[2017-04-12] MEDS ORDERED: ALENDRONATE SODIUM 70 MG TAB PO SCH (07:00)
[2017-04-12] MEDS: FLUTICASONE/SALMETER 500/50MCG DISKUS IH SCH ×2 (09:41→20:31)
[2017-04-12] MEDS ORDERED: LACTULOSE 20 GM/30 ML UDCUP PO PRN (10:24)
[2017-04-12] MEDS ORDERED: MAGNESIUM HYDROXIDE 30 ML UDCUP PO PRN (10:24)
[2017-04-12] MEDS ORDERED: POLYETHYLENE GLYCOL 3350 17 GM PKT PO PRN (10:24)
[2017-04-12] MEDS ORDERED: BISACODYL 10 MG SUPP PR PRN (10:24)
[2017-04-12] MEDS: buPROPion XL 150 MG TAB PO SCH (10:47)
[2017-04-12] MEDS: CHOLECALCIFEROL VIT D3 1,000 UNITS TAB PO SCH ×2 (10:49→21:06)
[2017-04-12] MEDS: PANTOPRAZOLE SODIUM 40 MG TAB PO SCH (10:49)
[2017-04-12] MEDS: IBUPROFEN 200 MG TAB PO SCH (10:49)
[2017-04-12] MEDS: predniSONE 20 MG TAB PO SCH (10:49)
[2017-04-12] MEDS: GABAPENTIN 300 MG CAP PO SCH ×2 (10:50→21:06)
[2017-04-12] MEDS: morphINE SR 15 MG TAB PO SCH ×3 (10:50→21:06)
[2017-04-12] MEDS: ASCORBIC ACID 500 MG TAB PO SCH ×2 (10:51→21:07)
[2017-04-12] MEDS: ENOXAPARIN 40 MG/0.4 ML SYR SC SCH (10:53)
[2017-04-12] MEDS: SENNOSIDES/DOCUSATE SODIUM TAB PO SCH ×2 (10:55→21:05)
[2017-04-12] MEDS: DOXYCYCLINE HYCLATE 100 MG CAP/TAB PO SCH (10:58)
[2017-04-12] MEDS ORDERED: methylPREDNISolone SOD SUCC 125 MG/2 ML VIAL IVP ONE ×2 (11:12→23:00)
[2017-04-12] MEDS ORDERED: FAMOTIDINE 20 MG/NACL 50 ML IV ONE ×2 (11:12→23:00)
[2017-04-12] MEDS: IPRATROPIUM/ALBUTEROL 3 ML DEYVIAL IH SCH ×3 (12:56→20:35)
--- NOTE | 2017-04-12 15:19 | ASMTCMCOM ---
CM Note CM Note Notes: Met with patient to review dc plan of care. She is status post fall and respiratory failure. She lives alone and has home health care services. She has a rather large dog who is being cared for by a friend. See previous notes. She does not remember me or [facility] and after discussing with MD a cog eval will be ordered to help assess decisional capacity. May need permanent fdc placement. CM to follow. Date Signed: 04/12/2017 03:19 PM Electronically Signed By:Leigh Perez RN
--- NOTE | 2017-04-12 15:19 | ASMTCMCOM ---
CM Note CM Note Notes: Met with patient to review dc plan of care. She is status post fall and respiratory failure. She lives alone and has home health care services. She has a rather large dog who is being cared for by a friend. See previous notes. She does not remember [facility] or [facility] and after discussing with MD a cog eval will be ordered to help assess decisional capacity. May need permanent fpc placement. CM to follow. Date Signed: 04/12/2017 03:19 PM Electronically Signed By:Leigh Perez RN
--- NOTE | 2017-04-12 15:19 | ASMTCMCOM ---
CM Note CM Note Notes: Met with patient to review dc plan of care. She is status post fall and respiratory failure. She lives alone and has home health care services. She has a rather large dog who is being cared for by a friend. See previous notes. She does [facility] remember [facility] or [facility] and after discussing with MD a cog eval will be ordered to help assess decisional capacity. May need permanent long-term placement. CM to follow. Date Signed: 04/12/2017 03:19 PM Electronically Signed By:Leigh Perez RN
--- NOTE | 2017-04-12 15:38 | HOSPPROG ---
Hospitalist Progress Note Assessment/Plan: * Acute on chronic respiratory failure -brief intubation for apneic episode - rapidly back to baseline 3L * Anemia - worsening -unclear source of blood loss -transfuse 1 unit -heme check stool x 3 -check CT abd/pelvis * Possible UTI -IV ceftriaxone - ID may discontinue soon * Left hip infected prosthesis - chronic suppressive doxycycline (MRSE) -no evidence for hip infection currently * COPD with chronic respiratory failure 3L -short course prednisone * CHB s/p PCM * Possible cognitive dysfunction - noted by staff -ST consult for cog eval -her home [place] - dog feces everywhere - recurrent EMS calls for falls Subjective: Denies complaints. Objective: Vital Signs Temp Pulse Resp BP Pulse Ox 36.6 C 100 14 145/80 H 94 04/12/17 15:13 04/12/17 15:13 04/12/17 15:13 04/12/17 15:13 04/12/17 15:13 Microbiology 04/08/17 23:14 Blood Culture - Final Blood Staphylococcus Hominis Blood Panel (PCR) - Final Staph Coagulase Negative Laboratory Results 04/12/17 05:16 04/12/17 05:16 04/11/17 04/12/17 04/13/17 05:59 05:59 05:59 Intake Total 800 800 Balance 800 800 PT 15.4 SEC (12.0-15.0) H 04/08/17 21:45 INR 1.22 (0.83-1.16) H 04/08/17 21:45 CXR viewed, my personal interpretation is - no infiltrate - Physical Exam Constitutional: no apparent distress, appears nourished, not in pain Cardiovascular: regular rate and rhythym, no murmur, rub, or gallop Respiratory: no respiratory distress, no rales or rhonchi, clear to auscultation Gastrointestinal: normoactive bowel sounds, soft, non-tender abdomen, no palpable masses Skin: no rashes or abrasions, no fluctuance, no induration Neurologic: AAOx3, sensation intact bilaterally Psychiatric: interacting appropriately, not anxious, not encephalopathic, thought process linear ICD10 Worksheet Patient Problems: Problems Problem Status Onset Acute respiratory failure Acute Elevated troponin Acute Abdominal pain Acute Abdominal pain Acute Back pain Acute COPD (chronic obstructive pulmonary disease) Acute Chest discomfort Acute Chronic left hip pain Acute Complete heart block Acute Dyspnea Acute Dyspnea Acute Gastric ulcer with perforation Acute Generalized weakness Acute Hip dislocation, left Acute Hypoxemia Acute Nausea Acute Osteoporosis Acute S/P hip replacement Acute Syncope Acute
--- NOTE | 2017-04-12 19:16 | PCMIDPN ---
Assessment/Plan: Assessment/Plan: * Leukocytosis with elevated procalcitonin: No defined etiology with repeat blood cultures no growth. Initial growth of Staphylococcus hominis most compatible with contamination given presence in only 1 of 4 bottles. Urine culture shows evidence of yeast but patient without urinary symptoms. Procalcitonin has almost normalized. Will discontinue ceftriaxone and observe off antibiotics. 04/12/17 19:13 Subjective: Patient feels better. Evaluation of anemia being undertaken to include CT of abdomen and pelvis. No urinary symptoms. Objective: Vital Signs Temp Pulse Resp BP Pulse Ox 36.6 C 92 16 145/80 H 94 04/12/17 15:13 04/12/17 17:12 04/12/17 17:12 04/12/17 15:13 04/12/17 17:12 Microbiology 04/08/17 23:14 Blood Culture - Final Blood Staphylococcus Hominis Blood Panel (PCR) - Final Staph Coagulase Negative Laboratory Results 04/12/17 05:16 04/12/17 05:16 04/11/17 04/12/17 04/13/17 05:59 05:59 05:59 Intake Total 800 800 250 Balance 800 800 250 Ceftriaxone # 4 Blood cultures 04/10/2017 no growth Laboratory Tests 04/12/17 05:16 Procalcitonin 0.16 H - Physical Exam General Appearance: alert, no apparent distress EENT: No thrush, No conjunctival petechiae Respiratory: lungs clear, No respiratory distress Cardiac/Chest: regular rate, rhythm, systolic murmur (2/6 left and right upper sternal borders) Abdomen: non-tender, No distended ICD10 Worksheet Patient Problems: Problems Problem Status Onset Acute respiratory failure Acute Elevated troponin Acute Abdominal pain Acute Abdominal pain Acute Back pain Acute COPD (chronic obstructive pulmonary disease) Acute Chest discomfort Acute Chronic left hip pain Acute Complete heart block Acute Dyspnea Acute Dyspnea Acute Gastric ulcer with perforation Acute Generalized weakness Acute Hip dislocation, left Acute Hypoxemia Acute Nausea Acute Osteoporosis Acute S/P hip replacement Acute Syncope Acute
[2017-04-12] MEDS: diphenhydrAMINE 25 MG CAP PO SCH (21:07)
[2017-04-12] MEDS ORDERED: IOPAMIDOL (ISOVUE-300) 100 ML BTL ONE (23:58)
[2017-04-13 04:52] LABS: PLATELET COUNT 309 10^3/uL (150-400)
[2017-04-13] MEDS: LEVOTHYROXINE 50 MCG TAB PO SCH (06:22)
[2017-04-13] MEDS: OXYCODONE/APAP 5/325 TAB PO PRN ×4 (09:27→23:51)
[2017-04-13] MEDS: buPROPion XL 150 MG TAB PO SCH (09:28)
[2017-04-13] MEDS: CHOLECALCIFEROL VIT D3 1,000 UNITS TAB PO SCH ×2 (09:28→21:20)
[2017-04-13] MEDS: PANTOPRAZOLE SODIUM 40 MG TAB PO SCH (09:28)
[2017-04-13] MEDS: morphINE SR 15 MG TAB PO SCH ×3 (09:28→21:21)
[2017-04-13] MEDS: DOXYCYCLINE HYCLATE 100 MG CAP/TAB PO SCH (09:28)
[2017-04-13] MEDS: ASCORBIC ACID 500 MG TAB PO SCH ×2 (09:28→21:20)
[2017-04-13] MEDS: predniSONE 20 MG TAB PO SCH (09:28)
[2017-04-13] MEDS: SENNOSIDES/DOCUSATE SODIUM TAB PO SCH ×2 (09:29→21:21)
[2017-04-13] MEDS: ENOXAPARIN 40 MG/0.4 ML SYR SC SCH (09:29)
[2017-04-13] MEDS: GABAPENTIN 300 MG CAP PO SCH ×2 (09:29→21:21)
[2017-04-13] MEDS: IPRATROPIUM/ALBUTEROL 3 ML DEYVIAL IH SCH ×3 (10:47→20:19)
[2017-04-13] MEDS: FLUTICASONE/SALMETER 500/50MCG DISKUS IH SCH ×2 (11:00→20:15)
--- NOTE | 2017-04-13 16:37 | HOSPPROG ---
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) -no evidence for hip infection currently * COPD with chronic respiratory failure 3L -short course prednisone day 09/17 * CHB s/p PCM * Possible cognitive dysfunction - noted by staff -ST consult for cog eval -her home is in [place] - dog feces everywhere - recurrent EMS calls for falls -05/01 home supervision recommended - but she lives alone with no support -needs eventual assisted living Subjective: No BM yet Objective: Vital Signs Temp Pulse Resp BP Pulse Ox 36.4 C 79 20 173/87 H 98 04/13/17 16:07 04/13/17 16:07 04/13/17 16:07 04/13/17 16:07 04/13/17 16:07 Laboratory Results 04/13/17 04:40 04/13/17 04:40 04/12/17 04/13/17 04/14/17 05:59 05:59 05:59 Intake Total 800 1450 Output Total 1450 Balance 800 0 PT 15.4 SEC (12.0-15.0) H 04/08/17 21:45 INR 1.22 (0.83-1.16) H 04/08/17 21:45 - Physical Exam Constitutional: no apparent distress, appears nourished, not in pain Cardiovascular: regular rate and rhythym, no murmur, rub, or gallop Respiratory: no respiratory distress, no rales or rhonchi, clear to auscultation Gastrointestinal: normoactive bowel sounds, soft, non-tender abdomen, no palpable masses Skin: no rashes or abrasions, no fluctuance, no induration Neurologic: AAOx3, sensation intact bilaterally Psychiatric: interacting appropriately, not anxious, not encephalopathic, thought process linear ICD10 Worksheet Patient Problems: Problems Problem Status Onset Acute respiratory failure Acute Elevated troponin Acute Abdominal pain Acute Abdominal pain Acute Back pain Acute COPD (chronic obstructive pulmonary disease) Acute Chest discomfort Acute Chronic left hip pain Acute Complete heart block Acute Dyspnea Acute Dyspnea Acute Gastric ulcer with perforation Acute Generalized weakness Acute Hip dislocation, left Acute Hypoxemia Acute Nausea Acute Osteoporosis Acute S/P hip replacement Acute Syncope Acute
--- NOTE | 2017-04-13 17:18 | WOCRNPDOC ---
WOCRN Advanced Assessment Note - Skin Integrity Problem, Advanced Assess Coccyx Dressing Type: Allevyn Life Dressing Description: Clean/Dry, Intact Integumentary Issue Intervention: Visualized Under Dressing Chandrika Wound Tissue: Erythema, Non-blanching Wound Bed Color: [place] Wound Bed Constitution: Smooth Tissue Wound Edges: Attached Site Measurement - Head-to-Toe Length X Width X Depth (cm): 2.5x2.4x0.1 Pressure Injury Stage: Stage 2 Pressure Injury Present on Admit: No Skin Integrity Problem Comment: TAPS in room. RN to add pump to bed and offloading cushion to chair. Education with patient about pressure injury prevention and likely trajectory of wound healing if area is offloaded. Discussed keeping HOB down below 30 degrees. RN Paulette in room for care.
[2017-04-13] MEDS: diphenhydrAMINE 25 MG CAP PO SCH (21:20)
[2017-04-14 05:18] LABS: PLATELET COUNT 331 10^3/uL (150-400)
[2017-04-14] MEDS: LEVOTHYROXINE 50 MCG TAB PO SCH (06:56)
[2017-04-14] MEDS: IPRATROPIUM/ALBUTEROL 3 ML DEYVIAL IH SCH ×2 (09:10→18:13)
[2017-04-14] MEDS: FLUTICASONE/SALMETER 500/50MCG DISKUS IH SCH ×2 (09:28→22:00)
[2017-04-14] MEDS: SENNOSIDES/DOCUSATE SODIUM TAB PO SCH ×2 (09:32→21:57)
[2017-04-14] MEDS: GABAPENTIN 300 MG CAP PO SCH ×2 (09:32→21:58)
[2017-04-14] MEDS: PANTOPRAZOLE SODIUM 40 MG TAB PO SCH (09:33)
[2017-04-14] MEDS: buPROPion XL 150 MG TAB PO SCH (09:33)
[2017-04-14] MEDS: DOXYCYCLINE HYCLATE 100 MG CAP/TAB PO SCH (09:33)
[2017-04-14] MEDS: CHOLECALCIFEROL VIT D3 1,000 UNITS TAB PO SCH ×2 (09:33→21:57)
[2017-04-14] MEDS: ASCORBIC ACID 500 MG TAB PO SCH ×2 (09:33→21:58)
[2017-04-14] MEDS: ENOXAPARIN 40 MG/0.4 ML SYR SC SCH (09:33)
[2017-04-14] MEDS: morphINE SR 15 MG TAB PO SCH ×3 (09:33→21:58)
[2017-04-14] MEDS: predniSONE 20 MG TAB PO SCH (09:33)
--- NOTE | 2017-04-14 16:14 | ASMTCMCOM ---
CM Note CM Note Notes: Met with patient to discuss expressed concerns regarding her safety at home as well as concerns regarding condition of her house. Patient lives on second floor of a [address] 8 apartment on [address]. She has 19 steps into her house and has had balance issues recently having fallen and trasported to hospital. She lives alone with her dog who she is unablr to take outside. Apparently there are dog feces in the house even though she has someone coming in to clean up after dog. She reports being aware of it but unalbe to manage it herself. Patient currently has HCBS services of ten hours a week through [facility]. Her C/M there is Rae [id number]. Rae is out of town so I spoke with Jason Guerrero who is notifying C/M on gladis to contact our C/M . Patient has requested a Life line , increased HCBS hours, a fix of her O2 concentrator with [employer] and also feels she needs a pprtable o2 unit so that she doesn to fall on the tubing. She said that [employer] does not provide this. Patient had an ethics consult today for decisional capacity and was deemed Decisional. It may be helpful to have patient moved to an apartment on the first floor so she wouldnt have risk of steps. She said she will contact Section 8 housing to make a request. Also, this C/M wonders if it might be helpful if APS could make a welfare visit after she discharges home. Case management will follow. Date Signed: 04/14/2017 04:13 PM Electronically Signed By:CORI Pa
--- NOTE | 2017-04-14 16:14 | ASMTCMCOM ---
CM Note CM Note Notes: Met with patient to discuss expressed concerns regarding her safety at home as well as concerns regarding condition of her house. Patient lives on second floor of a Section 8 apartment on [address]. She has 19 steps into her house and has had balance issues recently having fallen and trasported to hospital. She lives alone with her dog who she is unablr to take outside. Apparently there are dog feces in the house even though she has someone coming in to clean up after dog. She reports being aware of it but unalbe to manage it herself. Patient currently has HCBS services of ten hours a week through [facility]. Her C/M there is Rae [id number]. Rae is out of town so I spoke with Jason Guerrero who is notifying C/M on gldais to contact our C/M . Patient has requested a Life line , increased HCBS hours, a fix of her O2 concentrator with [employer] and also feels she needs a pprtable o2 unit so that she doesn to fall on the tubing. She said that [employer] does not provide this. Patient had an ethics consult today for decisional capacity and was deemed Decisional. It may be helpful to have patient moved to an apartment on the first floor so she wouldnt have risk of steps. She said she will contact Section 8 housing to make a request. Also, this C/M wonders if it might be helpful if APS could make a welfare visit after she discharges home. Case management will follow. Date Signed: 04/14/2017 04:13 PM Electronically Signed By:CORI Pa
--- NOTE | 2017-04-14 16:14 | ASMTCMCOM ---
CM Note CM Note Notes: Met with patient to discuss expressed concerns regarding her safety at home as well as concerns regarding condition of her house. Patient lives on second floor of a [address] 8 apartment on [address]. She has 19 steps into her house and has had balance issues recently having fallen and trasported to hospital. She lives alone with her dog who she is unablr to take outside. Apparently there are dog feces in the house even though she has someone coming in to clean up after dog. She reports being aware of it but unalbe to manage it herself. Patient currently has HCBS services of ten hours a week through [facility]. Her C/M there is Rae [id number]. Rae is out of town so I spoke with Jason Guerrero who is notifying C/M on gladis to contact our C/M . Patient has requested a Life line , increased HCBS hours, a fix of her O2 concentrator with [employer] and also feels she needs a pprtable o2 unit so that she doesn to fall on the tubing. She said that [employer] does not provide this. Patient had an ethics consult today for decisional capacity and was deemed Decisional. It may be helpful to have patient moved to an apartment on the first floor so she wouldnt have risk of steps. She said she will contact Section 8 housing to make a request. Also, this C/M wonders if it might be helpful if APS could make a welfare visit after she discharges home. Case management will follow. Date Signed: 04/14/2017 04:13 PM Electronically Signed By:CORI Pa
[2017-04-14] MEDS: IBUPROFEN 200 MG TAB PO PRN ×2 (16:29→21:57)
--- NOTE | 2017-04-14 18:21 | HOSPPROG ---
Hospitalist Progress Note Assessment/Plan: 81 yo F w/hx of COPD pw acute on chronic resp failure * Acute on chronic respiratory failure -brief intubation for apneic episode - rapidly back to baseline 3L -unclear what led to apnea--? 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 Care plan reviewed with ethics/cm. Old records reviewed/ summarized as above Subjective: no significant overnight events, wants to go home Objective: Vital Signs Temp Pulse Resp BP Pulse Ox 36.7 C 82 20 130/70 H 93 04/14/17 15:25 04/14/17 15:25 04/14/17 15:25 04/14/17 15:25 04/14/17 15:25 Microbiology 04/08/17 23:25 Blood Culture - Final Blood Laboratory Results 04/14/17 04:50 04/13/17 04:40 04/13/17 04/14/17 04/15/17 05:59 05:59 05:59 Intake Total 1450 1950 250 Output Total 1450 1000 350 Balance 0 950 -100 PT 15.4 SEC (12.0-15.0) H 04/08/17 21:45 INR 1.22 (0.83-1.16) H 04/08/17 21:45 awake alert nad anicteric op clear rrr no mrg cta b soft nt nd ble edema warm dry well perfuse oriented appropriate ICD10 Worksheet Patient Problems: Problems Problem Status Onset Gastric ulcer with perforation Acute Back pain Acute Hypoxemia Acute Osteoporosis Acute S/P hip replacement Acute Generalized weakness Acute Hip dislocation, left Acute Dyspnea Acute Syncope Acute Complete heart block Acute Chest discomfort Acute Dyspnea Acute Chronic left hip pain Acute Nausea Acute Abdominal pain Acute Abdominal pain Acute COPD (chronic obstructive pulmonary disease) Acute Acute respiratory failure Acute Elevated troponin Acute
[2017-04-14] MEDS: diphenhydrAMINE 25 MG CAP PO SCH (21:57)
[2017-04-14] MEDS: OXYCODONE/APAP 5/325 TAB PO PRN (21:58)
[2017-04-15] MEDS: OXYCODONE/APAP 5/325 TAB PO PRN ×4 (01:46→15:38)
[2017-04-15] MEDS: IPRATROPIUM/ALBUTEROL 3 ML DEYVIAL IH SCH ×3 (04:55→10:22)
[2017-04-15 05:23] LABS: PLATELET COUNT 349 10^3/uL (150-400)
[2017-04-15] MEDS: LEVOTHYROXINE 50 MCG TAB PO SCH (06:21)
[2017-04-15] MEDS: IBUPROFEN 200 MG TAB PO PRN (06:21)
[2017-04-15] MEDS: CHOLECALCIFEROL VIT D3 1,000 UNITS TAB PO SCH (09:34)
[2017-04-15] MEDS: GABAPENTIN 300 MG CAP PO SCH (09:45)
[2017-04-15] MEDS: PANTOPRAZOLE SODIUM 40 MG TAB PO SCH (09:45)
[2017-04-15] MEDS: DOXYCYCLINE HYCLATE 100 MG CAP/TAB PO SCH (09:45)
[2017-04-15] MEDS: SENNOSIDES/DOCUSATE SODIUM TAB PO SCH (09:45)
[2017-04-15] MEDS: ENOXAPARIN 40 MG/0.4 ML SYR SC SCH (09:46)
[2017-04-15] MEDS: buPROPion XL 150 MG TAB PO SCH (09:46)
[2017-04-15] MEDS: ASCORBIC ACID 500 MG TAB PO SCH (09:46)
[2017-04-15] MEDS: morphINE SR 15 MG TAB PO SCH ×2 (09:46→15:38)
[2017-04-15] MEDS: FLUTICASONE/SALMETER 500/50MCG DISKUS IH SCH (09:48)
--- NOTE | 2017-04-15 12:16 | PDHOMEO2F ---
Home Oxygen Face to Face Home Orders: I certify that a physician or a nurse practitioner or physician's physical therapy assistant has had a [id number] encounter with this patient on the date of this order due to the diagnosis listed, which relates to the primary reason the patient requires home oxygen. Alternative treatments have been tried, or considered, and deemed ineffective. It is anticipated that supplemental oxygen will result in improvement with treatment. Home oxygen qualifying diagnosis: COPD Home oxygen secondary diagnosis: atelectasis SpO2 on room air (%): 77 Frequency of home oxygen needed: continuous Home oxygen liters per minute: 3 Home oxygen delivery device: nasal cannula Concentrator: Yes E-tanks for mobility and back up: Yes If ordering portable O2, is the patient mobile in the home?: Yes I certify that, based on these findings, the home oxygen is medically necessary for this patient for the following length of time. Length of time home oxygen needed: 99 years (concentrator is broken and needs to be replaced)
--- NOTE | 2017-04-15 12:16 | PDHOMEO2F ---
Home Oxygen Face to Face Home Orders: I certify that a physician or a nurse practitioner or physician's assistant brand manager has had a mfsx-kj-hacq encounter with this patient on the date of this order due to the diagnosis listed, which relates to the primary reason the patient requires home oxygen. Alternative treatments have been tried, or considered, and deemed ineffective. It is anticipated that supplemental oxygen will result in improvement with treatment. Home oxygen qualifying diagnosis: COPD Home oxygen secondary diagnosis: atelectasis SpO2 on room air (%): 77 Frequency of home oxygen needed: continuous Home oxygen liters per minute: 3 Home oxygen delivery device: nasal cannula Concentrator: Yes E-tanks for mobility and back up: Yes If ordering portable O2, is the patient mobile in the home?: Yes I certify that, based on these findings, the home oxygen is medically necessary for this patient for the following length of time. Length of time home oxygen needed: 99 years (concentrator is broken and needs to be replaced)
--- NOTE | 2017-04-15 12:16 | PDHOMEO2F ---
Home Oxygen Face to Face Home Orders: I certify that a physician or a nurse practitioner or physician's exceptional children teacher assistant has had a mjze-zy-qvoo encounter with this patient on the date of this order due to the diagnosis listed, which relates to the primary reason the patient requires home oxygen. Alternative treatments have been tried, or considered, and deemed ineffective. It is anticipated that supplemental oxygen will result in improvement with treatment. Home oxygen qualifying diagnosis: COPD Home oxygen secondary diagnosis: atelectasis SpO2 on room air (%): 77 Frequency of home oxygen needed: continuous Home oxygen liters per minute: 3 Home oxygen delivery device: nasal cannula Concentrator: Yes E-tanks for mobility and back up: Yes If ordering portable O2, is the patient mobile in the home?: Yes I certify that, based on these findings, the home oxygen is medically necessary for this patient for the following length of time. Length of time home oxygen needed: 99 years (concentrator is broken and needs to be replaced)
--- NOTE | 2017-04-15 12:20 | PDIAF ---
- Diagnosis Code Status: Full Code - Medication Management Discharge Medications: Medications to Continue on Transfer Ascorbic Acid [Vitamin C 500 mg (*)] 1,000 mg PO BID 08/26/13 [Last Taken ] Calcium Carbonate [Tums 500MG (*)] 1,000 - 1,500 mg PO DAILY PRN 08/26/13 [Last Taken 08/18/16] Sennosides [Senokot] 2 each PO HS 08/26/13 [Last Taken 12/10/16] Alendronate Sodium [Fosamax 70 MG (*)] 70 mg PO BERNAL@07 03/29/16 [Last Taken 11/30] buPROPion XL [Wellbutrin 150mg XL] 300 mg PO DAILY 03/29/16 [Last Taken 12/10/16 ] diphenhydrAMINE [Benadryl 25 MG (*)] 25 mg PO HS 05/17/16 [Last Taken 12/09/16] Gabapentin [Neurontin 300 MG (*)] 600 mg PO BID 07/20/16 [Last Taken 12/09/16] Cholecalciferol Vit D3 [Vitamin D3 (*)] 1,000 units PO BID 08/11/16 [Last Taken 12/10/16] Ipratropium/Albuterol [Duoneb (*)] 3 ml IH QID PRN 08/11/16 [Last Taken 11/21/16 ] Levothyroxine [Synthroid 50 mcg (*)] 50 mcg PO DAILY06 09/24/16 [Last Taken ] oxyCODONE/APAP 5/325 [Percocet 5/325 (*)] 1 tab PO Q4HRS PRN 11/22/16 [Last Taken 12/10/16 21:00] Pantoprazole Sodium [Protonix 40mg (*)] 40 mg PO DAILY tab 11/28/16 [Last Taken 12/10/16] Fluticasone/Salmeter 500/50Mcg [Advair 500/50 (*)] 1 puffs IH BID 02/17/17 [ Last Taken Unknown] Albuterol [Proventil Inhaler HFA (*)] 1 - 2 puffs IH DAILY PRN 04/09/17 [Last Taken Unknown] Albuterol [Proventil Neb] 3 ml IH Q4HRS PRN 04/09/17 [Last Taken Unknown] Doxycycline Hyclate [Vibramycin 100 MG (*)] 100 mg PO DAILY 04/09/17 [Last Taken Unknown] Morphine Sulfate [Ms Contin] 15 mg PO TID 04/09/17 [Last Taken Unknown] Ibuprofen [Motrin (*)] 400 mg PO Q6HRS PRN tab 04/15/17 [Last Taken Unknown] Discharge Medications: Refer to the Discharge Home Medication list for PRN reason. - Orders Services needed: Home Care, Registered Nurse, Certified Special Services Director Home Care Face to Face: I certify that this patient was under my care and that I had the required [id number]-vr-[id number] encounter meeting the encounter requirements on the discharge day. My findings support the fact that the patient is homebound as defined in Home Care Face to Face Continued: CMS Chapter 7 Medicare Benefits Manual 30.1.1 , The condition of the patient is such that there exists a normal inability to leave home and consequently, leaving home would require a considerable and taxing effort. Diet Texture: Regular Texture Diet, Thin Liquids - Follow Up Care Current Providers and Referrals: Gutierrez Reyes MD [Primary Care Provider] - As per Instructions
--- NOTE | 2017-04-15 12:21 | PDDCSUM ---
Discharge Summary Discharge Summary: Dates of service 04/09-04/15/17 Consultations: Pulmonary, ID Procedures performed: endotracheal intubation, abdominal CT, chest CTA Hospital course by problem: 81 yo F w/hx of COPD pw acute on chronic resp failure * Acute on chronic respiratory failure -brief intubation for apneic episode - rapidly back to baseline 3L -unclear what led to apnea--? 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
--- NOTE | 2017-04-15 15:09 | PDIAF ---
- Diagnosis Code Status: Full Code - Medication Management Discharge Medications: Medications to Continue on Transfer Ascorbic Acid [Vitamin C 500 mg (*)] 1,000 mg PO BID 08/26/13 [Last Taken ] Calcium Carbonate [Tums 500MG (*)] 1,000 - 1,500 mg PO DAILY PRN 08/26/13 [Last Taken 08/18/16] Sennosides [Senokot] 2 each PO HS 08/26/13 [Last Taken 12/10/16] Alendronate Sodium [Fosamax 70 MG (*)] 70 mg PO BERNAL@07 03/29/16 [Last Taken 11/30] buPROPion XL [Wellbutrin 150mg XL] 300 mg PO DAILY 03/29/16 [Last Taken 12/10/16 ] diphenhydrAMINE [Benadryl 25 MG (*)] 25 mg PO HS 05/17/16 [Last Taken 12/09/16] Gabapentin [Neurontin 300 MG (*)] 600 mg PO BID 07/20/16 [Last Taken 12/09/16] Cholecalciferol Vit D3 [Vitamin D3 (*)] 1,000 units PO BID 08/11/16 [Last Taken 12/10/16] Ipratropium/Albuterol [Duoneb (*)] 3 ml IH QID PRN 08/11/16 [Last Taken 11/21/16 ] Levothyroxine [Synthroid 50 mcg (*)] 50 mcg PO DAILY06 09/24/16 [Last Taken ] oxyCODONE/APAP 5/325 [Percocet 5/325 (*)] 1 tab PO Q4HRS PRN 11/22/16 [Last Taken 12/10/16 21:00] Pantoprazole Sodium [Protonix 40mg (*)] 40 mg PO DAILY tab 11/28/16 [Last Taken 12/10/16] Fluticasone/Salmeter 500/50Mcg [Advair 500/50 (*)] 1 puffs IH BID 02/17/17 [ Last Taken Unknown] Albuterol [Proventil Inhaler HFA (*)] 1 - 2 puffs IH DAILY PRN 04/09/17 [Last Taken Unknown] Albuterol [Proventil Neb] 3 ml IH Q4HRS PRN 04/09/17 [Last Taken Unknown] Doxycycline Hyclate [Vibramycin 100 MG (*)] 100 mg PO DAILY 04/09/17 [Last Taken Unknown] Morphine Sulfate [Ms Contin] 15 mg PO TID 04/09/17 [Last Taken Unknown] Ibuprofen [Motrin (*)] 400 mg PO Q6HRS PRN tab 04/15/17 [Last Taken Unknown] Discharge Medications: Refer to the Discharge Home Medication list for PRN reason. - Orders Services needed: Home Care, Registered Nurse, Certified Inspectors And Regulatory Officers, Physical Therapy, Occupational Therapy Home Care Face to Face: I certify that this patient was under my care and that I had the required [id number] encounter meeting the encounter requirements on the discharge day. My findings support the fact that the patient is homebound as defined in Home Care Face to Face Continued: [facility] Chapter 7 Medicare Benefits Manual 30.1.1 , The condition of the patient is such that there exists a normal inability to leave home and consequently, leaving home would require a considerable and taxing effort. Diet Texture: Regular Texture Diet, Thin Liquids - Follow Up Care Current Providers and Referrals: Gutierrez Reyes MD [Primary Care Provider] - As per Instructions
[2017-04-15 15:27] VITALS: BP 126/83; PULSE 109; RESP 19; TEMP 98.9; O2SAT 94
--- NOTE | 2017-04-15 16:51 | ASDISCHSUM ---
Discharge Information Plan Status:Has needs-TBD Medically Cleared to Leave: Discharge Date:04/15/2017 03:43 PM CM D/C Disposition: [facility] D/C Disposition:HHSNOTBCH Projected Discharge Date:04/16/2017 11:00 AM Transportation at D/C: Discharge Delay Reason: Follow-Up Date:04/16/2017 11:00 AM Discharge Slot: Final Diagnosis: Placement Information Referral Type:*Jail/SNF Referral ID:[id number] Provider Name: Address 1: Phone Number: Address 2: Fax Number: City: Selection Factors: State: Referral Type:*Home Health Care Services Referral ID:[id number] Provider Name:[facility] [address] [address] Address 2: City:[place] Selection Factors: State:[place] Patient Contact Information Contact Name:KEARA Relationship:Other Address: Work Phone: City:[place] Alternate Phone: [facility]/Zip Code:[place] Email: Financial Information Financial Class: Primary Plan Desc:MEDICARE INPATIENT Primary Plan Number:[id number] Secondary Plan Desc:MED[place] Secondary Plan Number:[id number] Assessment Information LACE LACE Length of stay for Answers: Less than 1 day current admission Acuity / Level of Care Answers: Was the patient admitted to hospital via the emergency department? Yes: Comorbidities - select Answers: Chronic pulmonary disease all that apply Emergency dept visits in Answers: 1 last 6 months Score: 6 Date Signed: 04/09/2017 02:44 PM Electronically Signed By:Leigh Perez RN [facility] CM Progress Note CM Note CM Note Notes: Chart reviewed. Pt admitted s/p multiple falls via ED then experienced respiratory distress requiring intubation. She is now extubated. I met with her to assess her needs. She lives alone with her dog. She has an ex who we called from her room to ask that he go look after her dog. He called me to report inability to access condo due to lock box on door. Patient gives me the name of a neighbor who can help but she has no number. I called and spoke with property management and inquired about Alex Holland. She does have contact info and i asked that she call and give him my number. The patient does not want her ex to have the lock box number, I did speak with her friend Alex Holland and she spoke to him and is agreeable to care for her dog. Hip xray pending current NTBD. CM to follow. Date Signed: 04/09/2017 03:06 PM Electronically Signed By:Leigh Perez RN [facility] D[facility] Progress Note CM Note CM Note Notes: Spoke with Jennifer from [facility] where pt is current with [facility] she has PT and OT but no RN . They have stated concerns about her ability to make good judgements. She is very weak and lives on 2cnd. floor. She has a large dog. She cannot tell me if patient using assistive devices. CM to follow. Date Signed: 04/09/2017 03:49 PM Electronically Signed By:Leigh Perez RN [facility] [place] Progress Note CM Note CM Note Notes: Per PT and OT notes recommendation is SNF rehab upon discharge. Met with patient to review discharge plan of care. She is resistant to rehab but if it is necessary she would like to go to [facility] as she had been there in the past. She is very concerned over the care of her dog. Currently her friend Alex Holland is caring for the dog. Referral will be made for [facility].Patient to transfer to med surg. to follow. Spoke with Jennifer from [facility] where pt is current with [facility] she has PT and OT but no RN . They have stated concerns about her ability to make good judgements. She is very weak and lives on 2cnd. floor. She has a large dog. She cannot tell me if patient using assistive devices. CM to follow. Date Signed: 04/10/2017 02:20 PM Electronically Signed By:Leigh Perez RN [facility] CM Progress Note CM Note CM Note Notes: [facility] has tentatively accepted pt pending ins eval and more info. Pt concerned about her dog so she will need to work out those details before DC. C/M to follow. Date Signed: 04/11/2017 04:43 PM Electronically Signed By:Ute Li LCSW [facility] Progress Note CM Note CM Note Notes: Met with patient to review dc plan of care. She is status post fall and respiratory failure. She lives alone and has home health care services. She has a rather large dog who is being cared for by a friend. See previous notes. She does not remember me or any conversation regarding a stay at [facility] and after discussing with MD a cog eval will be ordered to help assess decisional capacity. May need permanent care home placement. CM to follow. Date Signed: 04/12/2017 03:19 PM Electronically Signed By:Leigh Perez RN [facility] CM Progress Note CM Note CM Note Notes: Met with patient to discuss expressed concerns regarding her safety at home as well as concerns regarding condition of her house. Patient lives on second floor of a Section 8 apartment [facility]. She has 19 steps into her house and has had balance issues recently having fallen and trasported to hospital. She lives alone with her dog who she is unablr to take outside. Apparently there are dog feces in the house even though she has someone coming in to clean up after dog. She reports being aware of it but unalbe to manage it herself. Patient currently has HCBS services of ten hours a week through [facility]. Her C/M there is Rae Jean-Baptiste.[id number]. Rae is out of town so I spoke with Jason Guerrero who is notifying C/M on gladis to contact our C/M . Patient has requested a Life line , increased HCBS hours, a fix of her O2 concentrator with Tea and also feels she needs a pprtable o2 unit so that she doesn to fall on the tubing. She said that [facility] does not provide this. Patient had an ethics consult today for decisional capacity and was deemed Decisional. It may be helpful to have patient moved to an apartment on the first floor so she wouldnt have risk of steps. She said she will contact Section 8 housing to make a request. Also, this C/M wonders if it might be helpful if APS could make a welfare visit after she discharges home. Case management will follow. Date Signed: 04/14/2017 04:13 PM Electronically Signed By:CORI Pa Intervention Information Intervention Type:*IM-Signed Date of Service:04/15/2017 02:06 PM Patient Type:Inpatient Staff Member:Maryanne Germain Hours: Discipline: Severity: Comment:
--- NOTE | 2017-04-15 16:51 | ASDISCHSUM ---
Discharge Information Plan Status:Has needs-TBD Medically Cleared to Leave: Discharge Date:04/15/2017 03:43 PM CM D/C Disposition: [facility] D/C Disposition:HHSNOTBCH Projected Discharge Date:04/16/2017 11:00 AM Transportation at D/C: Discharge Delay Reason: Follow-Up Date:04/16/2017 11:00 AM Discharge Slot: Final Diagnosis: Placement Information Referral Type:*Prison/SNF Referral ID:[id number] Provider Name: Address 1: Phone Number: Address 2: Fax Number: City: Selection Factors: State: Referral Type:*Home Health Care Services Referral ID:[id number] Provider Name:[facility] Address 1[address] [facility] [address] Address 2: City:[place] Selection Factors: State:[place] Patient Contact Information Contact Name:KEARA Relationship:Other Address: Work Phone: City:[place] Alternate Phone: [facility]/Zip Code:[place] Email: Financial Information Financial Class: Primary Plan Desc:MEDICARE INPATIENT Primary Plan Number:[id number] Secondary Plan Desc:MED[place] Secondary Plan Number:[id number] Assessment Information LACE LACE Length of stay for Answers: Less than 1 day current admission Acuity / Level of Care Answers: Was the patient admitted to hospital via the emergency department? Yes: Comorbidities - select Answers: Chronic pulmonary disease all that apply Emergency dept visits in Answers: 1 last 6 months Score: 6 Date Signed: 04/09/2017 02:44 PM Electronically Signed By:Leigh Perez RN [facility] CM Progress Note CM Note CM Note Notes: Chart reviewed. Pt admitted s/p multiple falls via ED then experienced respiratory distress requiring intubation. She is now extubated. I met with her to assess her needs. She lives alone with her dog. She has an ex who we called from her room to ask that he go look after her dog. He called me to report inability to access condo due to lock box on door. Patient gives me the name of a neighbor who can help but she has no number. I called and spoke with property management and inquired about Alex Holland. She does have contact info and i asked that she call and give him my number. The patient does not want her ex to have the lock box number, I did speak with her friend Alex Holland and she spoke to him and is agreeable to care for her dog. Hip xray pending current NTBD. CM to follow. Date Signed: 04/09/2017 03:06 PM Electronically Signed By:Leigh Perez RN [facility] Progress Note CM Note CM Note Notes: Spoke with Jennifer from [facility] where pt is current with [facility] she has PT and OT but no RN . They have stated concerns about her ability to make good judgements. She is very weak and lives on 2cnd. floor. She has a large dog. She cannot tell me if patient using assistive devices. CM to follow. Date Signed: 04/09/2017 03:49 PM Electronically Signed By:Leigh Perez RN [facility] Progress Note CM Note CM Note Notes: Per PT and OT notes recommendation is SNF rehab upon discharge. Met with patient to review discharge plan of care. She is resistant to rehab but if it is necessary she would like to go to [facility] as she had been there in the past. She is very concerned over the care of her dog. Currently her friend Alex Holland is caring for the dog. Referral will be made for [facility].Patient to transfer to med surg. to follow. Spoke with Jennifer from [facility] where pt is current with [facility] she has PT and OT but no RN . They have stated concerns about her ability to make good judgements. She is very weak and lives on 2c[address]. floor. She has a large dog. She cannot tell me if patient using assistive devices. CM to follow. Date Signed: 04/10/2017 02:20 PM Electronically Signed By:Leigh Perez RN [facility] CM Progress Note CM Note CM Note Notes: [facility] has tentatively accepted pt pending ins eval and more info. Pt concerned about her dog so she will need to work out those details before DC. C/M to follow. Date Signed: 04/11/2017 04:43 PM Electronically Signed By:Ute Li LCSW [facility] Progress Note CM Note CM Note Notes: Met with patient to review dc plan of care. She is status post fall and respiratory failure. She lives alone and has home health care services. She has a rather large dog who is being cared for by a friend. See previous notes. She does not remember me or any conversation regarding a stay at [facility] and after discussing with MD a cog eval will be ordered to help assess decisional capacity. May need permanent correction placement. CM to follow. Date Signed: 04/12/2017 03:19 PM Electronically Signed By:Leigh Perez RN [facility] CM Progress Note CM Note CM Note Notes: Met with patient to discuss expressed concerns regarding her safety at home as well as concerns regarding condition of her house. Patient lives on second floor of a Section 8 apartment [facility]. She has 19 steps into her house and has had balance issues recently having fallen and trasported to hospital. She lives alone with her dog who she is unablr to take outside. Apparently there are dog feces in the house even though she has someone coming in to clean up after dog. She reports being aware of it but unalbe to manage it herself. Patient currently has HCBS services of ten hours a week through [facility]. Her C/M there is Rae Jean-[phone]. Rae is out of town so I spoke with Jason Guerrero who is notifying C/M on gladis to contact our C/M . Patient has requested a Life line , increased HCBS hours, a fix of her O2 concentrator with Tea and also feels she needs a pprtable o2 unit so that she doesn to fall on the tubing. She said that [facility] does not provide this. Patient had an ethics consult today for decisional capacity and was deemed Decisional. It may be helpful to have patient moved to an apartment on the first floor so she wouldnt have risk of steps. She said she will contact Section 8 housing to make a request. Also, this C/M wonders if it might be helpful if APS could make a welfare visit after she discharges home. Case management will follow. Date Signed: 04/14/2017 04:13 PM Electronically Signed By:CORI Pa Intervention Information Intervention Type:*IM-Signed Date of Service:04/15/2017 02:06 PM Patient Type:Inpatient Staff Member:Maryanne Germain Hours: Discipline: Severity: Comment:
--- NOTE | 2017-04-15 16:51 | ASDISCHSUM ---
Discharge Information Plan Status:Has needs-TBD Medically Cleared to Leave: Discharge Date:04/15/2017 03:43 PM CM D/C Disposition: [facility] D/C Disposition:HHSNOTBCH Projected Discharge Date:04/16/2017 11:00 AM Transportation at D/C: Discharge Delay Reason: Follow-Up Date:04/16/2017 11:00 AM Discharge Slot: Final Diagnosis: Placement Information Referral Type:*Fpc/SNF Referral ID[facility]-[id number] Provider Name: Address 1: Phone Number: Address 2: Fax Number: City: Selection Factors: State: Referral Type:*Home Health Care Services Referral ID:[id number] Provider Name:[facility] Address [address] [facility] [facility] [address] Address 2: City:[place] Selection Factors: State:[place] Patient Contact Information Contact Name:KEARA Relationship:Other Address: Work Phone: City:[place] Alternate Phone: [facility]/Zip Code:[place] Email: Financial Information Financial Class: Primary Plan Desc:MEDICARE INPATIENT Primary Plan Number:[id number] Secondary Plan Desc:MED[place] Secondary Plan Number:[id number] Assessment Information LACE LACE Length of stay for Answers: Less than 1 day current admission Acuity / Level of Care Answers: Was the patient admitted to hospital via the emergency department? Yes: Comorbidities - select Answers: Chronic pulmonary disease all that apply Emergency dept visits in Answers: 1 last 6 months Score: 6 Date Signed: 04/09/2017 02:44 PM Electronically Signed By:Leigh Perez RN [facility] CM Progress Note CM Note CM Note Notes: Chart reviewed. Pt admitted s/p multiple falls via ED then experienced respiratory distress requiring intubation. She is now extubated. I met with her to assess her needs. She lives alone with her dog. She has an ex who we called from her room to ask that he go look after her dog. He called me to report inability to access condo due to lock box on door. Patient gives me the name of a neighbor who can help but she has no number. I called and spoke with property management and inquired about Alex Holland. She does have contact info and i asked that she call and give him my number. The patient does not want her ex to have the lock box number, I did speak with her friend Alex Holland and she spoke to him and is agreeable to care for her dog. Hip xray pending current NTBD. CM to follow. Date Signed: 04/09/2017 03:06 PM Electronically Signed By:Leigh Perez RN [facility] Progress Note CM Note CM Note Notes: Spoke with Jennifer from [facility] where pt is current with [facility] she has PT and OT but no RN . They have stated concerns about her ability to make good judgements. She is very weak and lives on 2cnd. floor. She has a large dog. She cannot tell me if patient using assistive devices. CM to follow. Date Signed: 04/09/2017 03:49 PM Electronically Signed By:Leigh Perez RN [facility] Progress Note CM Note CM Note Notes: Per PT and OT notes recommendation is SNF rehab upon discharge. Met with patient to review discharge plan of care. She is resistant to rehab but if it is necessary she would like to go to [facility] as she had been there in the past. She is very concerned over the care of her dog. Currently her friend Alex Holland is caring for the dog. Referral will be made for [facility].Patient to transfer to med surg. to follow. Spoke with Jennifer from [facility] where pt is current with [facility] she has PT and OT but no RN . They have stated concerns about her ability to make good judgements. She is very weak and lives on 2cnd. floor. She has a large dog. She cannot tell me if patient using assistive devices. CM to follow. Date Signed: 04/10/2017 02:20 PM Electronically Signed By:Leigh Perez RN [facility] CM Progress Note CM Note CM Note Notes: [facility] has tentatively accepted pt pending ins eval and more info. Pt concerned about her dog so she will need to work out those details before DC. C/M to follow. Date Signed: 04/11/2017 04:43 PM Electronically Signed By:Ute Li LCSW [facility] Progress Note CM Note CM Note Notes: Met with patient to review dc plan of care. She is status post fall and respiratory failure. She lives alone and has home health care services. She has a rather large dog who is being cared for by a friend. See previous notes. She does not remember me or any conversation regarding a stay at [facility] and after discussing with MD a cog eval will be ordered to help assess decisional capacity. May need permanent fdc placement. CM to follow. Date Signed: 04/12/2017 03:19 PM Electronically Signed By:Leigh Perez RN [facility] CM Progress Note CM Note CM Note Notes: Met with patient to discuss expressed concerns regarding her safety at home as well as concerns regarding condition of her house. Patient lives on second floor of a Section 8 apartment [facility]. She has 19 steps into her house and has had balance issues recently having fallen and trasported to hospital. She lives alone with her dog who she is unablr to take outside. Apparently there are dog feces in the house even though she has someone coming in to clean up after dog. She reports being aware of it but unalbe to manage it herself. Patient currently has HCBS services of ten hours a week through [facility]. Her C/M there is Rae Jean-[id number]. Rae is out of town so I spoke with Jason Guerrero who is notifying C/M on gladis to contact our C/M . Patient has requested a Life line , increased HCBS hours, a fix of her O2 concentrator with Tea and also feels she needs a pprtable o2 unit so that she doesn to fall on the tubing. She said that [facility] does not provide this. Patient had an ethics consult today for decisional capacity and was deemed Decisional. It may be helpful to have patient moved to an apartment on the first floor so she wouldnt have risk of steps. She said she will contact Section 8 housing to make a request. Also, this C/M wonders if it might be helpful if APS could make a welfare visit after she discharges home. Case management will follow. Date Signed: 04/14/2017 04:13 PM Electronically Signed By:CORI Pa Intervention Information Intervention Type:*IM-Signed Date of Service:04/15/2017 02:06 PM Patient Type:Inpatient Staff Member:Maryanne Germain Hours: Discipline: Severity: Comment:
--- NOTE | 2017-04-15 17:42 | PDPCPN ---
Palliative Care Progress Note Assessment/Plan: Assessment: Plan: Objective: Vital Signs Temp Pulse Resp BP Pulse Ox 37.2 C 109 H 19 126/83 H 94 04/15/17 15:24 04/15/17 15:24 04/15/17 15:24 04/15/17 15:24 04/15/17 15:24 Microbiology 04/10/17 17:10 Blood Culture - Final Blood 04/10/17 17:05 Blood Culture - Final Blood Laboratory Results 04/15/17 04:58 04/13/17 04:40 04/14/17 04/15/17 04/16/17 05:59 05:59 05:59 Intake Total 1950 2150 Output Total 1000 350 Balance 950 1800 PT 15.4 SEC (12.0-15.0) H 04/08/17 21:45 INR 1.22 (0.83-1.16) H 04/08/17 21:45 ICD10 Worksheet Patient Problems: Problems Problem Status Onset Abdominal pain Acute Abdominal pain Acute Acute respiratory failure Acute Back pain Acute COPD (chronic obstructive pulmonary disease) Acute Chest discomfort Acute Chronic left hip pain Acute Complete heart block Acute Dyspnea Acute Dyspnea Acute Elevated troponin Acute Gastric ulcer with perforation Acute Generalized weakness Acute Hip dislocation, left Acute Hypoxemia Acute Nausea Acute Osteoporosis Acute Palliative care encounter Acute S/P hip replacement Acute Syncope Acute - ICD10 Problem Qualifiers (1) Palliative care encounter
== END 2017-04-15 15:43 | disposition home health service (06) | DRG 208 ==
LOC: EDUNIT# → F2N 04-09 01:01 → F1N 04-10 14:27
PROVIDERS: ADMIT Internal Medicine; ATTEND Internal Medicine
PROC: 0BH17EZ Insertion of Endotracheal Airway into Trachea, Via Natural or Artificial Opening (ICD-10-PCS; principal; 2017-04-08)
PROC: 5A1935Z Respiratory Ventilation, Less than 24 Consecutive Hours (ICD-10-PCS; principal; 2017-04-08)
PROC: 30233N1 Transfusion of Nonautologous Red Blood Cells into Peripheral Vein, Percutaneous Approach (ICD-10-PCS; 2017-04-12)
DX: J96.21 Acute and chronic respiratory failure with hypoxia (principal); N39.0 Urinary tract infection, site not specified; J44.9 Chronic obstructive pulmonary disease, unspecified; E03.9 Hypothyroidism, unspecified; D64.9 Anemia, unspecified; F32.9 Major depressive disorder, single episode, unspecified; M25.512 Pain in left shoulder; K59.00 Constipation, unspecified; R41.89 Other symptoms and signs involving cognitive functions and awareness; L89.152 Pressure ulcer of sacral region, stage 2; Z95.810 Presence of automatic (implantable) cardiac defibrillator; Z96.643 Presence of artificial hip joint, bilateral; Z91.81 History of falling
CPT/HCPCS: 82607-90; 82947-QW; 92507-GN; 92523-GN; 92610-GN; 96365; 96374; 97110-GP; 97116-GP; 97162-GP; 97165-GO; 97530-GO; 97530-GP; 97535-GO; G8978-GP-CJ; G8979-GP-CI; G8987-GO-CI; G8987-GO-CL; G8988-GO-CI; G8989-GO-CI; G8996-GN-CH; G8997-GN-CH; G8998-GN-CH; G9168-GN-CJ; G9169-GN-CI; J0330; J0696; J1200; J1650; J1953; J2060; J3010; J3370; P9016; Q9967

== ENCOUNTER 2017-04-22 11:51 | Emergency (ER) | payer OTHER, MEDICAID ==
[2017-04-22 11:59] VITALS: RESP 18
[2017-04-22] MEDS ORDERED: OXYCODONE/APAP 5/325 TAB PO ONE (12:01)
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
[2017-04-22] MEDS ORDERED: IBUPROFEN 200 MG TAB PO ONE (12:06)
[2017-04-22 17:24] VITALS: BP 122/43; PULSE 76; TEMP 98.4; O2SAT 97
== END 2017-04-22 17:24 | disposition home or self-care (01) ==
LOC: EDUNIT#
DX: M25.531 Pain in right wrist (principal); J44.9 Chronic obstructive pulmonary disease, unspecified; Z95.0 Presence of cardiac pacemaker; Z87.891 Personal history of nicotine dependence
CPT/HCPCS: 73110; 99283; L3908

== ENCOUNTER 2017-05-04 19:21 | Emergency (ER) | payer OTHER, MEDICAID ==
[2017-05-04 19:27] VITALS: RESP 18; TEMP 98.4
--- NOTE | 2017-05-04 19:37 | CPEKG ---
Heart Rate: 77 RR Interval: 779 P-R Interval: 172 QRSD Interval: 138 QT Interval: 404 QTC Interval: 458 P Antelope: 9 QRS Antelope: -6 T Wave Antelope: -16 EKG Severity - ABNORMAL ECG - EKG Impression: SINUS RHYTHM EKG Impression: RIGHT BUNDLE BRANCH BLOCK Electronically Signed By: Jorden Kay 04-May-2017 22:49:20
--- NOTE | 2017-05-04 20:09 | EDPHY ---
H & P Stated Complaint: " I don't feel well." Time Seen by Provider: 05/04/17 19:31 Source: Patient Exam Limitations: No limitations - Personal History Tetanus Vaccine Date: 2014 - Medical/Surgical History Hx Asthma: Yes Hx Chronic Respiratory Disease: Yes Hx Diabetes: No Hx Cardiac Disease: Yes Hx Renal Disease: No Hx Cirrhosis: No Hx Alcoholism: No Hx HIV/AIDS: No Hx Splenectomy or Spleen Trauma: No Other PMH: appy, hypothyroid, arthritis, copd, tanja hip replacements,HIP REVISION x5 (last October 2016, prolapsed bladder, "kidney stone surgery",. spinal stenosis, chronic pain, PPM, scoliosis, Posterior hip dislocation x3, PACEMAKER. T9 compression fracture with kyphoplasty, Surgery on T9 vertebrae, bilateral cataracts - Social History Smoking Status: Former smoker Constitutional: Initial Vital Signs Temperature (C) 36.9 C 05/04/17 19:27 Heart Rate 81 05/04/17 19:27 Respiratory Rate 18 05/04/17 19:27 Blood Pressure 114/82 H 05/04/17 19:27 O2 Sat (%) 98 05/04/17 19:27 O2 Delivery Mode Nasal Cannula O2 (L/minute) 3 Allergies/Adverse Reactions: duloxetine HCl [From Cymbalta] Allergy (Severe, Verified 12/10/16 21:40) Vomiting Iodinated Contrast- Oral and IV Dye Allergy (Severe, Verified 04/12/17 11:15) Other-Enter Comments aspirin Allergy (Intermediate, Verified 12/10/16 21:40) stomach pain cephalexin monohydrate [From Keflex] Allergy (Intermediate, Verified 12/10/16 21 :40) Stomach Pain codeine [Codeine] Allergy (Intermediate, Verified 12/10/16 21:40) Nausea Vomiting hydrocodone bitartrate [From Vicodin] Allergy (Intermediate, Verified 12/10/16 21:40) Nausea Vomiting orphenadrine Allergy (Intermediate, Verified 12/10/16 21:40) Stomach pain tetracycline [Tetracycline] Allergy (Intermediate, Verified 12/10/16 21:40) Stomach Pain celecoxib Allergy (Unknown, Unverified 04/15/17 16:13) Weight gain, Fatigue, Increased Pain ciprofloxacin Allergy (Unknown, Unverified 04/15/17 16:13) clarithromycin Allergy (Unknown, Unverified 04/15/17 16:13) Stomach Pain levofloxacin Allergy (Unknown, Unverified 04/15/17 16:13) Swelling/neck,face,throat linezolid Allergy (Unknown, Unverified 04/15/17 16:13) sulfamethoxazole Allergy (Unknown, Unverified 04/15/17 16:13) Nausea Vomiting amoxicillin trihydrate [From Augmentin] Allergy (Verified 12/10/16 21:40) potassium clavulanate [From Augmentin] Allergy (Verified 12/10/16 21:40) shrimp Allergy (Verified 12/10/16 21:40) ORPHENGESIC Allergy (Intermediate, Uncoded 11/22/16 10:24) Stomach Pain Terpin hydrate Allergy (Intermediate, Uncoded 11/22/16 10:24) Stomach pain amoxicillin trihydrate Allergy (Unknown, Uncoded 04/15/17 16:13) cephalexin monohydrate Allergy (Unknown, Uncoded 04/15/17 16:13) Stomach Pain duloxetine HCl Allergy (Unknown, Uncoded 04/15/17 16:13) Vomiting hydrocodone bitartrate Allergy (Unknown, Uncoded 04/15/17 16:13) Nausea Vomiting potassium clavulanate Allergy (Unknown, Uncoded 04/15/17 16:13) Home Medications: Medication Instructions Recorded Ascorbic Acid [Vitamin C 500 mg 1,000 mg PO BID 08/26/13 (*)] Calcium Carbonate [Tums 500MG (*)] 1,000 - 1,500 mg PO DAILY PRN 08/26/13 Sennosides [Senokot] 2 each PO HS 08/26/13 Alendronate Sodium [Fosamax 70 MG 70 mg PO BERNAL@07 03/29/16 (*)] buPROPion XL [Wellbutrin 150mg XL] 300 mg PO DAILY 03/29/16 diphenhydrAMINE [Benadryl 25 MG 25 mg PO HS 05/17/16 (*)] Gabapentin [Neurontin 300 MG (*)] 600 mg PO BID 07/20/16 Cholecalciferol Vit D3 [Vitamin D3 1,000 units PO BID 08/11/16 (*)] Ipratropium/Albuterol [Duoneb (*)] 3 ml IH QID PRN 08/11/16 Levothyroxine [Synthroid 50 mcg 50 mcg PO DAILY06 09/24/16 (*)] oxyCODONE/APAP 5/325 [Percocet 1 tab PO Q4HRS PRN 11/22/16 5/325 (*)] Pantoprazole Sodium [Protonix 40mg 40 mg PO DAILY tab 11/28/16 (*)] Fluticasone/Salmeter 500/50Mcg 1 puffs IH BID 02/17/17 [Advair 500/50 (*)] Albuterol [Proventil Inhaler HFA 1 - 2 puffs IH DAILY PRN 04/09/17 (*)] Albuterol [Proventil Neb] 3 ml IH Q4HRS PRN 04/09/17 Doxycycline Hyclate [Vibramycin 100 mg PO DAILY 04/09/17 100 MG (*)] Morphine Sulfate [Ms Contin] 15 mg PO TID 04/09/17 Ibuprofen [Motrin (*)] 400 mg PO Q6HRS PRN tab 04/15/17 Hydrocodone/APAP 5/325 [[place] 1 tab PO Q6H PRN #10 tab 04/22/17 5/325 (*)] Nitrofurantoin Monohyd/M-Cryst 100 mg PO BID #20 capsule 05/04/17 [Macrobid 100 mg Capsule] Medical Decision Making - Diagnostics EKG Interpretation: The 12 lead EKG was interpreted by myself. See hard copy and/or "tracemaster" electronic copy for interpretation: Sinus rhythm, RBBB. ED Course/Re-evaluation: CHIEF COMPLAINT: Generalized weakness HISTORY OF PRESENT ILLNESS: The patient is a 81-year-old female with COPD, hypothyroidism, and prior left hip arthroplasty with recurrent dislocations. The patient presents to the ED today because her recent lab work showed low potassium and possible urine infection. The patient complains of generalized weakness and moderate abdominal discomfort. She spoke to Dr. Anisha Herrera who told the patient to come to the ED if she had an acute problem. She denies dysuria, hematuria, or frequency. REVIEW OF SYSTEMS: A 10 point review of systems was performed and is negative with the exception of the elements mentioned in the history of present illness. PHYSICAL EXAM: HR, BP, O2 Sat, RR. Temp noted General Appearance: Alert, well hydrated, appropriate, and non-toxic appearing. Head: Atraumatic without scalp tenderness or obvious injury Eyes: Pupils equal, round, reactive to light and accommodation, EOMI, no trauma , no injection. Ears: Clear bilaterally, no perforation, normal landmarks Nose: Atraumatic, no rhinorrhea, clear. Throat: There is no erythema or exudates, no lesions, normal tonsils, mucus membranes moist. Neck: Supple, 2+ carotid upstroke, nontender, no lymphadenopathy. Respiratory: No retractions, no distress, no wheezes, and no accessory muscle use. Lungs are clear to auscultation bilaterally. Cardiovascular: Regular rate and rhythm, no murmurs, rubs, or gallops. Bilateral carotid, radial, dorsalis pedis, and posterior tibial pulses intact. Good capillary refill all extremities. Gastrointestinal: Abdomen is soft, nontender, non-distended, no masses, no rebound, no guarding, no peritoneal signs. Musculoskeletal: Normal active ROM of all extremities, atraumatic. Neurological: Alert, appropriate, and interactive. The patient has normal DTRs and non-focal cranial nerves, motor, sensory, and cerebellar exam. Skin: No rashes, good turgor, no nodules on palpation. Past medical history: COPD on 3L, Complete heart block s/p pacemaker, chronic back pain, spinal stenosis, peptic ulcer disease with history of perforating ulcers. Past surgical history: Appendectomy, Bilateral total hip arthroplasties. Family history: Noncontributory. Social history: The patient has been living at home, she refuses [facility] placement. DIFFERENTIAL DIAGNOSIS: The differential diagnosis for the patient's abdominal pain included but was not limited to urinary tract infection, diverticulitis, gastroenteritis, cholecystitis. MEDICAL DECISION MAKING: Patient presents with possible urinary tract infection. She states her recent lab work showed elevated Potassium and possible urine infection. The patient generally does not feel well and complains of mild abdominal pain. She has a benign abdominal examination. Plan to check lab work including CBC and CHEM as well as a urinalysis. Lab work is relatively normal. Electrolytes are normal, Potassium is normal. Patient is slightly anemic. Urinalysis is pending. UA is positive for leukocyte esterase. Plan to treat UTI with Macrobid 100mg BID. - Data Points Laboratory Results: Laboratory Results 05/04/17 20:00 05/04/17 20:00 05/04/17 05/04/17 05/04/17 21:00 20:00 20:00 WBC 6.48 10^3/uL 10^3/uL (3.80-9.50) RBC 3.56 10^6/uL L 10^6/uL (4.18-5.33) Hgb 11.3 g/dL L g/dL (12.6-16.3) Hct 35.7 % L % (38.0-47.0) MCV 100.3 fL H fL (81.5-99.8) MCH 31.7 pg pg (27.9-34.1) MCHC 31.7 g/dL L g/dL (32.4-36.7) RDW 17.4 % H % (11.5-15.2) Plt Count 515 10^3/uL H D 10^3/uL (150-400) MPV 10.1 fL fL (8.7-11.7) Neut % (Auto) 44.2 % % (39.3-74.2) Lymph % (Auto) 37.0 % % (15.0-45.0) [place] % (Auto) 11.0 % % (4.5-13.0) Eos % (Auto) 7.3 % % (0.6-7.6) Baso % (Auto) 0.3 % % (0.3-1.7) Nucleat RBC Rel Count 0.0 % % (0.0-0.2) Absolute Neuts (auto) 2.87 10^3/uL 10^3/uL (1.70-6.50) Absolute Lymphs (auto) 2.40 10^3/uL 10^3/uL (1.00-3.00) Absolute Monos (auto) 0.71 10^3/uL 10^3/uL (0.30-0.80) Absolute Eos (auto) 0.47 10^3/uL H 10^3/uL (0.03-0.40) Absolute Basos (auto) 0.02 10^3/uL 10^3/uL (0.02-0.10) Absolute Nucleated RBC 0.00 10^3/uL 10^3/uL (0-0.01) Immature Gran % 0.2 % % (0.0-1.1) Immature Gran # 0.01 10^3/uL 10^3/uL (0.00-0.10) Sodium 137 mEq/L mEq/L (134-144) Potassium 4.4 mEq/L mEq/L (3.5-5.2) Chloride 100 mEq/L mEq/L (97-110) Carbon Dioxide 30 mEq/l mEq/l (22-31) Anion Gap 7 mEq/L L mEq/L (8-16) BUN 8 mg/dL mg/dL (7-23) Creatinine 0.6 mg/dL mg/dL (0.6-1.0) Estimated GFR > 60 Glucose 81 mg/dL mg/dL (70-100) Calcium 9.2 mg/dL mg/dL (8.5-10.4) Specimen Hemolysis 137 Urine Color YELLOW Urine Appearance MODERATELY TURBID Urine pH 5.0 (5.0-7.5) Ur Specific [place] 1.015 (1.002-1.030) Urine Protein NEGATIVE (NEGATIVE) Urine Ketones NEGATIVE (NEGATIVE) Urine Blood NEGATIVE (NEGATIVE) Urine Nitrate NEGATIVE (NEGATIVE) Urine Bilirubin NEGATIVE (NEGATIVE) Urine Urobilinogen NEGATIVE EU EU (0.2-1.0) Ur Leukocyte Esterase 3+ H (NEGATIVE) Urine RBC 10-15 /hpf H /hpf (0-3) Urine WBC 50-182 /hpf H /hpf (0-3) Ur Epithelial Cells 1+ /lpf /lpf (NONE-1+) Urine Yeast PRESENT /hpf /hpf (NONE SEEN) Urine Glucose NEGATIVE (NEGATIVE) Medications Given: Discontinued Medications Nitrofurantoin Macrocrystals (Macrobid) 100 mg PO EDNOW ONE PRN Reason: Protocol Stop: 05/04/17 21:32 Last Admin: 05/04/17 21:35 Dose: 100 mg Departure - Departure Disposition: Home, Routine, Self-Care Clinical Impression: UTI (urinary tract infection) Qualifiers: Urinary tract infection type: site unspecified Hematuria presence: without hematuria Qualified Code(s): N39.0 - Urinary tract infection, site not specified Condition: Good Instructions: Urinary Tract Infection in Women (ED) Additional Instructions: Take the full course of antibiotics as directed. Drink plenty of fluids. Follow up with your primary care physician as needed. Referrals: Gutierrez Reyes MD [Primary Care Provider] - As per Instructions Prescriptions: Nitrofurantoin Monohyd/M-Cryst [Macrobid 100 mg Capsule] 100 mg PO BID #20 capsule Report Scribed for: Jorden Kay Report Scribed by: Alisia Marrufo Date of Report: 05/04/17 Time of Report: 20:18
[2017-05-04 20:20] LABS: % IMMATURE GRANULYOCYTES 0.2 % (0.0-1.1); ABSOLUTE IMMATURE GRANULOCYTES 0.01 10^3/uL (0.00-0.10); ADD DIFF? NO; ADD MORPH? NO; ADD SCAN? NO; ATYPICAL LYMPHOCYTE FLAG 10 (0-99); FRAGMENT RBC FLAG 0 (0-99); HEMATOCRIT 35.7 % (38.0-47.0); HEMOGLOBIN 11.3 g/dL (12.6-16.3); LEFT SHIFT FLG 0 (0-99); LIPEMIA HEMOLYSIS FLAG 80 (0-99); MEAN CELL HEMOGLOBIN 31.7 pg (27.9-34.1); MEAN CELL HEMOGLOBIN CONCENTR. 31.7 g/dL (32.4-36.7); MEAN CELL VOLUME 100.3 fL (81.5-99.8); MEAN PLATELET VOLUME 10.1 fL (8.7-11.7); PLATELET CLUMPS FLAG 10 (0-99); PLATELET COUNT 515 10^3/uL (150-400); RED BLOOD CELL COUNT 3.56 10^6/uL (4.18-5.33); RED CELL DISTRIBUTION WIDTH 17.4 % (11.5-15.2)
[2017-05-04 20:32] LABS: ANION GAP 7 mEq/L (8-16); CALCIUM 9.2 mg/dL (8.5-10.4); CARBON DIOXIDE 30 mEq/l (22-31); CHLORIDE 100 mEq/L (97-110); CREATININE 0.6 mg/dL (0.6-1.0); GLOMERULAR FILTRATION RATE > 60; GLUCOSE 81 mg/dL (70-100); POTASSIUM 4.4 mEq/L (3.5-5.2); SODIUM 137 mEq/L (134-144); SPECIMEN HEMOLYSIS 137
[2017-05-04 21:23] LABS: COLOR YELLOW; LEUKOCYTE ESTERASE,URINE 3+ (NEGATIVE); NITRITE,URINE NEGATIVE (NEGATIVE)
[2017-05-04] MEDS ORDERED: NITROFURANTOIN MACROBID 100 MG CAP PO ONE (21:31)
[2017-05-04 21:39] LABS: WBC,URINE 50-182 /hpf (0-3); YEAST PRESENT /hpf (NONE SEEN)
[2017-05-04 22:08] VITALS: BP 139/76; PULSE 79; O2SAT 97
== END 2017-05-04 22:06 | disposition home or self-care (01) ==
LOC: EDBD → EDUNIT#
DX: N39.0 Urinary tract infection, site not specified (principal); J45.909 Unspecified asthma, uncomplicated; Z87.891 Personal history of nicotine dependence

== ENCOUNTER → 2017-05-28 | Outpatient (CLI) | payer OTHER, MEDICAID | LOC: BMCIMAGING 16:08 | PROVIDERS: ATTEND Internal Medicine Rheumatology | DX: S62.101D Fracture of unspecified carpal bone, right wrist, subsequent encounter for fracture with routine healing (principal) ==

== ENCOUNTER 2017-06-24 14:19 | Emergency (ER) | payer OTHER, MEDICAID ==
--- NOTE | 2017-06-24 14:48 | EDPHY ---
H & P Time Seen by Provider: 06/24/17 14:37 HPI/ROS: CHIEF COMPLAINT: Bumps on right leg HISTORY OF PRESENT ILLNESS: Patient was brought to the ER by ambulance for evaluation of 3 swelling areas on her right leg which she thinks has been there for about a week, her physician wanted to "rule out embolism. "She says that the bumps are only a little bit painful when touched. Not associated with chest pain or shortness of breath. No recent injury or trauma. No fever or chills. No skin changes. REVIEW OF SYSTEMS: Eye: no change in vision ENT: no sore throat Cardiac: no chest pain or syncope Pulmonary: no cough or SOB Abdomen: no vomiting, diarrhea, abdominal pain. She has lost weight and has had decreased appetite for several months now Musculoskeletal: She does have multiple areas of pain from her arthritis which are unchanged Skin: no rash Neuro: no headache Constitutional: no fever : no urinary symptoms A comprehensive 10 point review of systems is otherwise negative aside from elements mentioned in the history of present illness. PAST MEDICAL HISTORY: Includes appendectomy, hypothyroid, arthritis, COPD. Bilateral hip replacements. Spinal stenosis and chronic pain. Pacemaker. Social history: Here with a caregiver. General Appearance: Alert and conversant, cooperative. Eyes: No scleral icterus. ENT, Mouth: Normal mucous membranes. Respiratory: Normal respiratory effort, breath sounds equal, lungs are clear to auscultation. Cardiovascular: Regular rate and rhythm. Gastrointestinal: Abdomen is soft and non tender. Neurological: Alert, follows commands, moves all 4 extremities. Skin: Warm and dry, no rashes. The patient does not have right leg zoster or redness or warmth to palpation or lymphangitis. Musculoskeletal: No bony tenderness in the right leg. Normal range of motion of the right knee ankle and foot. Compartments are soft. She has 2 areas of subcutaneous mobile not tender lumps 1 cm diameter on the anterior and medial calf. Psychiatric: Not agitated. Emergency Department course/MDM: More likely to be lipoma, I do not think she has compartment syndrome or fracture or infection or arterial vascular problem. Ultrasound and discharge if negative for DVT. 1608: no DVT on US per Tori, Tye cyst "more liquefied" only. Smoking Status: Former smoker Constitutional: Initial Vital Signs Temperature (C) 37.2 C 06/24/17 14:22 Heart Rate 71 06/24/17 14:22 Respiratory Rate 16 06/24/17 14:22 Blood Pressure 145/68 H 06/24/17 14:22 O2 Sat (%) 97 06/24/17 14:22 O2 (L/minute) 3 Allergies/Adverse Reactions: duloxetine HCl [From Cymbalta] Allergy (Severe, Verified 12/10/16 21:40) Vomiting Iodinated Contrast- Oral and IV Dye Allergy (Severe, Verified 04/12/17 11:15) Other-Enter Comments aspirin Allergy (Intermediate, Verified 12/10/16 21:40) stomach pain cephalexin monohydrate [From Keflex] Allergy (Intermediate, Verified 12/10/16 21 :40) Stomach Pain codeine [Codeine] Allergy (Intermediate, Verified 12/10/16 21:40) Nausea Vomiting hydrocodone bitartrate [From Vicodin] Allergy (Intermediate, Verified 12/10/16 21:40) Nausea Vomiting orphenadrine Allergy (Intermediate, Verified 12/10/16 21:40) Stomach pain tetracycline [Tetracycline] Allergy (Intermediate, Verified 12/10/16 21:40) Stomach Pain celecoxib Allergy (Unknown, Unverified 04/15/17 16:13) Weight gain, Fatigue, Increased Pain ciprofloxacin Allergy (Unknown, Unverified 04/15/17 16:13) clarithromycin Allergy (Unknown, Unverified 04/15/17 16:13) Stomach Pain levofloxacin Allergy (Unknown, Unverified 04/15/17 16:13) Swelling/neck,face,throat linezolid Allergy (Unknown, Unverified 04/15/17 16:13) sulfamethoxazole Allergy (Unknown, Unverified 04/15/17 16:13) Nausea Vomiting amoxicillin trihydrate [From Augmentin] Allergy (Verified 12/10/16 21:40) potassium clavulanate [From Augmentin] Allergy (Verified 12/10/16 21:40) shrimp Allergy (Verified 12/10/16 21:40) ORPHENGESIC Allergy (Intermediate, Uncoded 11/22/16 10:24) Stomach Pain Terpin hydrate Allergy (Intermediate, Uncoded 11/22/16 10:24) Stomach pain amoxicillin trihydrate Allergy (Unknown, Uncoded 04/15/17 16:13) cephalexin monohydrate Allergy (Unknown, Uncoded 04/15/17 16:13) Stomach Pain duloxetine HCl Allergy (Unknown, Uncoded 04/15/17 16:13) Vomiting hydrocodone bitartrate Allergy (Unknown, Uncoded 04/15/17 16:13) Nausea Vomiting potassium clavulanate Allergy (Unknown, Uncoded 04/15/17 16:13) Home Medications: Medication Instructions Recorded Ascorbic Acid [Vitamin C 500 mg 1,000 mg PO BID 08/26/13 (*)] Calcium Carbonate [Tums 500MG (*)] 1,000 - 1,500 mg PO DAILY PRN 08/26/13 Sennosides [Senokot] 2 each PO HS 08/26/13 Alendronate Sodium [Fosamax 70 MG 70 mg PO BERNAL@07 03/29/16 (*)] buPROPion XL [Wellbutrin 150mg XL] 300 mg PO DAILY 03/29/16 diphenhydrAMINE [Benadryl 25 MG 25 mg PO HS 05/17/16 (*)] Gabapentin [Neurontin 300 MG (*)] 600 mg PO BID 07/20/16 Cholecalciferol Vit D3 [Vitamin D3 1,000 units PO BID 08/11/16 (*)] Ipratropium/Albuterol [Duoneb (*)] 3 ml IH QID PRN 08/11/16 Levothyroxine [Synthroid 50 mcg 50 mcg PO DAILY06 09/24/16 (*)] oxyCODONE/APAP 5/325 [Percocet 1 tab PO Q4HRS PRN 11/22/16 5/325 (*)] Pantoprazole Sodium [Protonix 40mg 40 mg PO DAILY tab 11/28/16 (*)] Fluticasone/Salmeter 500/50Mcg 1 puffs IH BID 02/17/17 [Advair 500/50 (*)] Albuterol [Proventil Inhaler HFA 1 - 2 puffs IH DAILY PRN 04/09/17 (*)] Albuterol [Proventil Neb] 3 ml IH Q4HRS PRN 04/09/17 Doxycycline Hyclate [Vibramycin 100 mg PO DAILY 04/09/17 100 MG (*)] Morphine Sulfate [Ms Contin] 15 mg PO TID 04/09/17 Ibuprofen [Motrin (*)] 400 mg PO Q6HRS PRN tab 04/15/17 Hydrocodone/APAP 325 [[place] 1 tab PO Q6H PRN #10 tab 04/22/17 5/325 (*)] Nitrofurantoin Monohyd/M-Cryst 100 mg PO BID #20 capsule 05/04/17 [Macrobid 100 mg Capsule] Departure - Departure Disposition: Home, Routine, Self-Care Clinical Impression: Gamble's cyst of knee Qualifiers: Laterality: right Qualified Code(s): M71.21 - Synovial cyst of popliteal space [Gamble], right knee Condition: Good Instructions: Leg Pain (ED), Bakers Cyst (ED) Referrals: Gutierrez Reyes MD [[facility] Primary Care Provider] - As per Instructions
--- NOTE | 2017-06-24 17:31 | ASMTCMCOM ---
CM Note CM Note Notes: Case Management asked to assist patient with transportation home. Lucy arrived to ER via EMS with c/o "bumps on her R leg" which have been evaluated. She is now discharged from the ER. I met with patient who tells me that she needs a ride home with oxygen and someone to carry her up 19 stairs to her apartment. I have called MARIE to receive verification for [facility] WC transportation. Verification is denied from VEKAYLA "[facility]" who states that they will arrange a VIA van transportation but not authorize ambulance transport as patient is "ambulatory". I have informed patient of this and explained that FRANNY cannot bill her or quote a rate for billing her because she is a Medicaid patient. Patient, frustrated, tells me that she would not have sent her caregiver home (had accompanied her to the ER) if she knew I would not be able to get her home. I informed patient of other options such as a cab, [place] transport, VIA. Patient states that she cannot go home without her oxygen or assistance up the stairs. She is also concerned about the cost of transport. I again explained that if FRANNY were to provide transport of any kind, she may be responsible for the bill given that KANDI has denied transportation via ambulance. Patient does have oxygen at home that her activities director scouting can bring for transportation. After an hour of discussing options, patient decided to call her activities director scouting back to pick her up with her oxygen and assist her into her apartment Date Signed: 06/24/2017 05:30 PM Electronically Signed By:Kika Esteves RN
[2017-06-24 18:25] VITALS: BP 122/77; PULSE 86; RESP 18; TEMP 98.4; O2SAT 96
== END 2017-06-24 18:43 | disposition home or self-care (01) ==
LOC: EDUNIT#
DX: M71.21 Synovial cyst of popliteal space [Baker], right knee (principal); J44.9 Chronic obstructive pulmonary disease, unspecified; Z87.891 Personal history of nicotine dependence

== ENCOUNTER 2017-08-06 18:40 | Inpatient (IN) | payer OTHER, MEDICAID ==
--- NOTE | 2017-08-06 18:49 | EDPHY ---
H & P Time Seen by Provider: 08/06/17 18:49 HPI/ROS: CHIEF COMPLAINT: Shortness of breath HISTORY OF PRESENT ILLNESS: History of COPD, discharge summary dated 04/15/2017 personally reviewed. Started feeling short of breath today and was 86% on 3 L and breathing at a respiratory rate of greater than 40 on EMS arrival. Recent runny nose and congestion for 3 or 4 days, chronic cough unchanged. [place] worsening shortness of breath today symptoms were severe not associated with chest pain or fever. REVIEW OF SYSTEMS: Eye: no change in vision ENT: no sore throat Cardiac: no chest pain or syncope Pulmonary: HPI Abdomen: no vomiting, diarrhea, abdominal pain Musculoskeletal: no back pain or leg swelling Skin: no rash Neuro: no headache Constitutional: no fever : no urinary symptoms A comprehensive 10 point review of systems is otherwise negative aside from elements mentioned in the history of present illness. PAST MEDICAL HISTORY: Discharge summary dated 04/15/2017 reviewed includes COPD , anemia, UTI, left hip prosthesis. Pacemaker. Social history: Former smoker General Appearance: Alert and conversant, cooperative. Quite thin. Eyes: No scleral icterus. ENT, Mouth: Normal mucous membranes. Respiratory: Prolonged expiratory phase with bilateral wheezing but no focal lung sounds. Cardiovascular: Regular rate and rhythm. Gastrointestinal: Abdomen is soft and non tender. Neurological: Alert, face symmetric, normal motor and sensory in extremities. Skin: Warm and dry, no rashes. Musculoskeletal: No peripheral edema. Psychiatric: Not agitated. Emergency Department course/MDM: Patient presents with COPD exacerbation. Plan for influenza testing, DuoNeb and albuterol neb, supplemental oxygen, 80 mg IV Solu-Medrol. 1918: Chest x-ray shows vertebroplasty, pacemaker, COPD. No pneumonia. 1941: Chest x-ray personally reviewed as well as Radiology interpretation. Clinically I think that pneumonia would be less likely. Symptoms only today, no fever, normal white blood cell count. Admission for COPD exacerbation and decompensation in a patient with severe lung disease was had previous Respiratory arrest and intubation. Smoking Status: Former smoker Constitutional: Initial Vital Signs Temperature (C) 37.0 C 08/06/17 19:22 Heart Rate 90 08/06/17 19:22 Respiratory Rate 20 08/06/17 19:22 Blood Pressure 120/100 H 08/06/17 19:22 O2 Sat (%) 96 08/06/17 19:22 O2 Delivery Mode [place] O2 (L/minute) 6 Allergies/Adverse Reactions: duloxetine HCl [From Cymbalta] Allergy (Severe, Verified 08/06/17 19:21) Vomiting Iodinated Contrast- Oral and IV Dye Allergy (Severe, Verified 08/06/17 19:21) Other-Enter Comments aspirin Allergy (Intermediate, Verified 08/06/17 19:21) stomach pain cephalexin monohydrate [From Keflex] Allergy (Intermediate, Verified 08/06/17 19 :21) Stomach Pain codeine [Codeine] Allergy (Intermediate, Verified 08/06/17 19:21) Nausea Vomiting hydrocodone bitartrate [From Vicodin] Allergy (Intermediate, Verified 08/06/17 19:21) Nausea Vomiting orphenadrine Allergy (Intermediate, Verified 08/06/17 19:21) Stomach pain tetracycline [Tetracycline] Allergy (Intermediate, Verified 08/06/17 19:21) Stomach Pain celecoxib Allergy (Unknown, Unverified 08/06/17 19:21) Weight gain, Fatigue, Increased Pain ciprofloxacin Allergy (Unknown, Unverified 08/06/17 19:21) clarithromycin Allergy (Unknown, Unverified 08/06/17 19:21) Stomach Pain levofloxacin Allergy (Unknown, Unverified 08/06/17 19:21) Swelling/neck,face,throat linezolid Allergy (Unknown, Unverified 08/06/17 19:21) sulfamethoxazole Allergy (Unknown, Unverified 08/06/17 19:21) Nausea Vomiting amoxicillin trihydrate [From Augmentin] Allergy (Verified 08/06/17 19:21) potassium clavulanate [From Augmentin] Allergy (Verified 08/06/17 19:21) shrimp Allergy (Verified 08/06/17 19:21) ORPHENGESIC Allergy (Intermediate, Uncoded 08/06/17 19:21) Stomach Pain Terpin hydrate Allergy (Intermediate, Uncoded 08/06/17 19:21) Stomach pain amoxicillin trihydrate Allergy (Unknown, Uncoded 08/06/17 19:21) cephalexin monohydrate Allergy (Unknown, Uncoded 08/06/17 19:21) Stomach Pain duloxetine HCl Allergy (Unknown, Uncoded 08/06/17 19:21) Vomiting hydrocodone bitartrate Allergy (Unknown, Uncoded 08/06/17 19:21) Nausea Vomiting potassium clavulanate Allergy (Unknown, Uncoded 08/06/17 19:21) Home Medications: Medication Instructions Recorded Ascorbic Acid [Vitamin C 500 mg 1,000 mg PO BID 08/26/13 (*)] Calcium Carbonate [Tums 500MG (*)] 1,000 - 1,500 mg PO DAILY PRN 08/26/13 Sennosides [Senokot] 2 each PO HS 08/26/13 Alendronate Sodium [Fosamax 70 MG 70 mg PO BERNAL@07 03/29/16 (*)] buPROPion XL [Wellbutrin 150mg XL] 300 mg PO DAILY 03/29/16 diphenhydrAMINE [Benadryl 25 MG 25 mg PO HS 05/17/16 (*)] Gabapentin [Neurontin 300 MG (*)] 600 mg PO BID 07/20/16 Cholecalciferol Vit D3 [Vitamin D3 1,000 units PO BID 08/11/16 (*)] Ipratropium/Albuterol [Duoneb (*)] 3 ml IH QID PRN 08/11/16 Levothyroxine [Synthroid 50 mcg 50 mcg PO DAILY06 09/24/16 (*)] oxyCODONE/APAP 5/325 [Percocet 1 tab PO Q4HRS PRN 11/22/16 5/325 (*)] Pantoprazole Sodium [Protonix 40mg 40 mg PO DAILY tab 11/28/16 (*)] Fluticasone/Salmeter 500/50Mcg 1 puffs IH BID 02/17/17 [Advair 500/50 (*)] Albuterol [Proventil Inhaler HFA 1 - 2 puffs IH DAILY PRN 04/09/17 (*)] Albuterol [Proventil Neb] 3 ml IH Q4HRS PRN 04/09/17 Doxycycline Hyclate [Vibramycin 100 mg PO DAILY 04/09/17 100 MG (*)] Morphine Sulfate [Ms Contin] 15 mg PO TID 04/09/17 Ibuprofen [Motrin (*)] 400 mg PO Q6HRS PRN tab 04/15/17 Hydrocodone/APAP 5/325 [[place] 1 tab PO Q6H PRN #10 tab 04/22/17 5/325 (*)] Nitrofurantoin Monohyd/M-Cryst 100 mg PO BID #20 capsule 05/04/17 [Macrobid 100 mg Capsule] Medical Decision Making - Diagnostics EKG Interpretation: 12-lead EKG interpreted by me; official reading is in trace master. My interpretation is sinus rhythm, right bundle branch block, no ischemic changes. Imaging Results: Imaging Impressions Chest X-Ray 08/06/17 18:54 Impression: Underlying bronchitis. Possible early infiltrate right lower lobe. Chest x-ray shows vertebroplasty and pacemaker, no pneumonia. COPD. Imaging: I viewed and interpreted images myself Differential Diagnosis: Differential diagnosis considered for shortness of breath including but not limited to pulmonary infectious process, COPD, asthma, pulmonary embolus and congestive heart failure. Consult/Admit Bed Type: [place] [id number] - Data Points Laboratory Results: Laboratory Results 08/06/17 18:40 08/06/17 18:40 08/06/17 08/06/17 08/06/17 18:40 18:40 18:00 WBC 7.03 10^3/uL 10^3/uL (3.80-9.50) RBC 4.04 10^6/uL L 10^6/uL (4.18-5.33) Hgb 12.6 g/dL g/dL (12.6-16.3) Hct 40.3 % % (38.0-47.0) MCV 99.8 fL fL (81.5-99.8) MCH 31.2 pg pg (27.9-34.1) MCHC 31.3 g/dL L g/dL (32.4-36.7) RDW 15.9 % H % (11.5-15.2) Plt Count 247 10^3/uL 10^3/uL (150-400) MPV 9.4 fL fL (8.7-11.7) Neut % (Auto) 69.4 % % (39.3-74.2) Lymph % (Auto) 20.3 % % (15.0-45.0) [place] % (Auto) 8.5 % % (4.5-13.0) Eos % (Auto) 1.4 % % (0.6-7.6) Baso % (Auto) 0.1 % L % (0.3-1.7) Nucleat RBC Rel Count 0.0 % % (0.0-0.2) Absolute Neuts (auto) 4.87 10^3/uL 10^3/uL (1.70-6.50) Absolute Lymphs (auto) 1.43 10^3/uL 10^3/uL (1.00-3.00) Absolute Monos (auto) 0.60 10^3/uL 10^3/uL (0.30-0.80) Absolute Eos (auto) 0.10 10^3/uL 10^3/uL (0.03-0.40) Absolute Basos (auto) 0.01 10^3/uL L 10^3/uL (0.02-0.10) Absolute Nucleated RBC 0.00 10^3/uL 10^3/uL (0-0.01) Immature Gran % 0.3 % % (0.0-1.1) Immature Gran # 0.02 10^3/uL 10^3/uL (0.00-0.10) Sodium 140 mEq/L mEq/L (135-145) Potassium 4.4 mEq/L mEq/L (3.5-5.2) Chloride 103 mEq/L mEq/L (97-110) Carbon Dioxide 25 mEq/l mEq/l (22-31) Anion Gap 12 mEq/L mEq/L (8-16) BUN 16 mg/dL mg/dL (7-23) Creatinine 0.7 mg/dL mg/dL (0.6-1.0) Estimated GFR > 60 Glucose 92 mg/dL mg/dL (70-100) Calcium 9.8 mg/dL mg/dL (8.5-10.4) Troponin I < 0.012 ng/mL ng/mL (0.000-0.034) Nasal Influenza A PCR Pending Nasal Influenza B PCR Pending Medications Given: Discontinued Medications Albuterol (Proventil Neb) 3 ml IH EDNOW ONE Stop: 08/06/17 18:54 Last Admin: 08/06/17 19:01 Dose: 3 ml Albuterol/Ipratropium (Duoneb) 3 ml IH EDNOW ONE Stop: 08/06/17 18:54 Last Admin: 08/06/17 19:01 Dose: 3 ml Methylprednisolone Sodium Succinate (Solu-Medrol) 80 mg IVP EDNOW ONE Stop: 08/06/17 18:54 Last Admin: 08/06/17 19:01 Dose: 80 mg Departure - Dep[facility] Clinical Impression: Chronic obstructive pulmonary disease with acute exacerbation Condition: Fair Referrals: Patient,NotPresent [Primary Care Provider] - As per Instructions
[2017-08-06] MEDS ORDERED: methylPREDNISolone SOD SUCC 125 MG/2 ML VIAL IVP ONE (18:53)
[2017-08-06] MEDS ORDERED: ALBUTEROL 3 ML DEYVIAL IH ONE ×2 (18:53→20:13)
[2017-08-06] MEDS ORDERED: IPRATROPIUM/ALBUTEROL 3 ML DEYVIAL IH ONE (18:53)
[2017-08-06 19:02] LABS: PLATELET COUNT 247 10^3/uL (150-400)
--- NOTE | 2017-08-06 19:20 | CPEKG ---
Heart Rate: 91 RR Interval: 659 P-R Interval: 172 QRSD Interval: 130 QT Interval: 368 QTC Interval: 453 P Hardy: 2 QRS Hardy: 14 T Wave Hardy: -29 EKG Severity - ABNORMAL ECG - EKG Impression: SINUS RHYTHM EKG Impression: VENTRICULAR PREMATURE COMPLEX EKG Impression: RIGHT BUNDLE BRANCH BLOCK Electronically Signed By: Baljit Smiley 06-Aug-2017 19:39:02
[2017-08-06] MEDS ORDERED: LORazepam 2 MG/ML INJ IVP PRN (20:21)
[2017-08-06] MEDS ORDERED: ONDANSETRON 4 MG/2 ML VIAL IVP PRN (20:21)
[2017-08-06] MEDS ORDERED: ALBUTEROL 3 ML DEYVIAL IH PRN (20:21)
[2017-08-06] MEDS ORDERED: ONDANSETRON DISINTEGRATING 4 MG TAB PO PRN (20:21)
[2017-08-06] MEDS ORDERED: ACETAMINOPHEN 325 MG TAB PO PRN (20:21)
[2017-08-06] MEDS ORDERED: OXYCODONE/APAP 5/325 TAB PO PRN (20:58)
[2017-08-06] MEDS ORDERED: IBUPROFEN 200 MG TAB PO PRN (20:58)
[2017-08-06] MEDS ORDERED: CALCIUM CARBONATE 500 MG CHEWABLE TAB PO PRN (20:58)
[2017-08-06] MEDS ORDERED: SENNOSIDES 1 TAB PO SCH (21:00)
[2017-08-06] MEDS ORDERED: diphenhydrAMINE 25 MG CAP PO SCH (21:00)
[2017-08-06] MEDS: IPRATROPIUM/ALBUTEROL 3 ML DEYVIAL IH SCH (21:06)
--- NOTE | 2017-08-06 21:27 | GHP ---
[f rep st] HISTORY AND PHYSICAL DATE OF ADMISSION: 08/06/2017 HISTORY OF PRESENT ILLNESS: The patient is a pleasant 81-year-old female, with history of pretty sig nificant COPD, on 3 L of oxygen at baseline, who presents with increased work of breathing. She had a runny nose for a couple days, and the breathing got worse today. She describes some wheezing. She has not had chills or fevers. She has not had cough or sputum. She does not smoke cigarettes. The re have been no sick contacts. In the emergency department, was found to be hypoxic at 88% on her ba seline 3 L, as well as tachypneic. When I spoke with the patient, she was using increased work of br eathing. During my exam her oxygen inadvertently came off for around 2 minute, and she desatted into the 70s, it had been at 6 L, and became remarkably dyspneic requiring a neb and oxygen to crank up t o 10 L for a couple of minutes to get her sat back above 88%. She has not had lower extremity edema. REVIEW OF SYSTEMS: Complete 10-point Review of Systems conducted. Negative except as noted in the H PI. PAST MEDICAL HISTORY: 1. Chronic hypoxemic respiratory failure with oxygen-dependent COPD. 2. Complete heart block, status post pacer. 3. 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 PAST SURGICAL HISTORY: Bilateral hip surgeries. ALLERGIES: She has a long list of allergies that include duloxetine, contrast, aspirin, Keflex, code ine, hydrocodone, orphenadrine, tetracyclines, celecoxib, ciprofloxacin, clarithromycin, levofloxacin , linezolid, sulfamethoxazole, amoxicillin, and then clavulanate, shrimp, Orphengesic, terpin hydrate . MEDICATIONS: Percocet, Benadryl, bupropion, senna, pantoprazole, nitrofurantoin, morphine, levothyro xine, DuoNeb, ibuprofen, [place], gabapentin, Advair, doxycycline, vitamin D3, calcium carbonate, ascor bic acid, alendronate, albuterol. SOCIAL HISTORY: She lives alone. Admission in March of 2017, found their house was covered in dog feces. It is not clear how true this is. The patient does not appear dirty when I see her. FAMILY HISTORY: Parents . PHYSICAL EXAM: PRESENTING VITAL SIGNS: Temp 36.7, blood pressure 134/69, pulse 98 to 109, breathing 20 times a minute, 80% on 3 L, 94 on 4. GENERAL: Increased work of breathing. Tachypneic. Thin. HEENT: Sclerae anicteric. Oropharynx clear. Mucous membranes moist. NECK: Supple without lymphad enopathy or JVD. LUNGS: Distant breath sounds with scattered wheezes. There is decreased air movem ent. There are upper airway sounds. HEART: S1, S2. Borderline tachycardia. ABDOMEN: Soft, nonte nder, nondistended. LOWER EXTREMITIES: No edema. Calves nontender. SKIN: Without rash. NEUROLOG IC: Nonfocal. LABS: White count 7, hematocrit 40, platelets are 247,000. Sodium 140, potassium 4.4, chloride 103, bicarb 25, BUN 16, creatinine 0.7. Troponin less than 0.012. IMAGING STUDIES: Chest x-ray, interpreted by me, shows no acute cardiopulmonary disease. There is s ome increased markings at the right base, which were new from prior. Radiologist felt this is possib ly an early infiltrate. EKG, interpreted by me, shows a paced rhythm with a right bundle branch bloc k pattern. It is unchanged from prior. Discussed the case with Dr. Baljit Smiley. ASSESSMENT AND PLAN: 81-year-old female presents with increased work of breathing, Generalized weakn ess. 1. [id number] hypoxemic respiratory failure attributable to chronic obstructive pulmonary dise ase. We have turned her oxygen up to about 5 or 6 L. The oxygen saturations of 87 or higher are acc eptable in this patient. 2. Chronic obstructive pulmonary disease flare. Steroids and nebulizers. She takes nitrofurantoin and doxycycline as an outpatient. She has a host drug allergies. I will continue those antibiotics but hold on new ones. 3. Query pneumonia. I think, at this point in time, we are going to hold on treatment with antibiot ics, as the patient does not have a white count, and she has a number of drug allergies. Does not ap pear to be infected, so we will follow. 4. Pain. We will continue her chronic pain medications. I have apprehension about narcotics and op iates in this patient, given her severe chronic obstructive pulmonary disease, which she takes these chronically. 5. Prophylaxis. Pharmacologic prophylaxis indicated. DISPOSITION: Inpatient status. /[id number]/MODL
[2017-08-06] MEDS: NITROFURANTOIN MACROBID 100 MG CAP PO SCH (21:31)
[2017-08-06] MEDS: morphINE SR 15 MG TAB PO SCH (21:31)
[2017-08-07] MEDS ORDERED: predniSONE 20 MG TAB PO SCH
[2017-08-07] MEDS: methylPREDNISolone SOD SUCC 125 MG/2 ML VIAL IVP SCH ×3 (01:58→13:26)
[2017-08-07] MEDS: IPRATROPIUM/ALBUTEROL 3 ML DEYVIAL IH SCH ×2 (05:59→10:34)
[2017-08-07] MEDS ORDERED: LEVOTHYROXINE 50 MCG TAB PO SCH (06:00)
[2017-08-07] MEDS: DICYCLOMINE 20 MG TAB PO SCH ×2 (06:16→13:24)
[2017-08-07 06:21] LABS: PLATELET COUNT 242 10^3/uL (150-400)
[2017-08-07 07:43] VITALS: TEMP 97.7
[2017-08-07] MEDS: morphINE SR 15 MG TAB PO SCH (07:45)
[2017-08-07] MEDS: NITROFURANTOIN MACROBID 100 MG CAP PO SCH (07:47)
[2017-08-07] MEDS ORDERED: DOXYCYCLINE HYCLATE 100 MG CAP/TAB PO SCH (09:00)
[2017-08-07] MEDS ORDERED: buPROPion XL 150 MG TAB PO SCH (09:00)
[2017-08-07] MEDS ORDERED: ENOXAPARIN 30 MG/0.3 ML SYR SC SCH (09:00)
[2017-08-07] MEDS ORDERED: PANTOPRAZOLE SODIUM 40 MG TAB PO SCH (09:00)
[2017-08-07] MEDS ORDERED: FLUTICASONE/SALMETER 500/50MCG DISKUS IH SCH (09:00)
[2017-08-07] MEDS ORDERED: GABAPENTIN 300 MG CAP PO SCH (09:00)
--- NOTE | 2017-08-07 10:10 | PDMN ---
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
[2017-08-07 10:50] VITALS: PULSE 94
--- NOTE | 2017-08-07 10:53 | PDIAF ---
- Diagnosis Diagnosis: copd Code Status: Full Code - Medication Management Discharge Medications: Medications to Continue on Transfer Ascorbic Acid [Vitamin C 500 mg (*)] 1,000 mg PO BID 08/26/13 [Last Taken ] Calcium Carbonate [Tums 500MG (*)] 1,000 - 1,500 mg PO DAILY PRN 08/26/13 [Last Taken 08/18/16] Sennosides [Senokot] 2 each PO HS 08/26/13 [Last Taken 12/10/16] Alendronate Sodium [Fosamax 70 MG (*)] 70 mg PO BERNAL@07 03/29/16 [Last Taken 11/30] buPROPion XL [Wellbutrin 150mg XL] 300 mg PO DAILY 03/29/16 [Last Taken 12/10/16 ] diphenhydrAMINE [Benadryl 25 MG (*)] 25 mg PO HS 05/17/16 [Last Taken 12/09/16] Gabapentin [Neurontin 300 MG (*)] 600 mg PO BID 07/20/16 [Last Taken 12/09/16] Cholecalciferol Vit D3 [Vitamin D3 (*)] 1,000 units PO BID 08/11/16 [Last Taken 12/10/16] Ipratropium/Albuterol [Duoneb (*)] 3 ml IH QID PRN 08/11/16 [Last Taken 11/21/16 ] Levothyroxine [Synthroid 50 mcg (*)] 50 mcg PO DAILY06 09/24/16 [Last Taken ] oxyCODONE/APAP 5/325 [Percocet 5/325 (*)] 1 tab PO Q4HRS PRN 11/22/16 [Last Taken 12/10/16 21:00] Pantoprazole Sodium [Protonix 40mg (*)] 40 mg PO DAILY tab 11/28/16 [Last Taken 12/10/16] Fluticasone/Salmeter 500/50Mcg [Advair 500/50 (*)] 1 puffs IH BID 02/17/17 [ Last Taken Unknown] Albuterol [Proventil Inhaler HFA (*)] 1 - 2 puffs IH DAILY PRN 04/09/17 [Last Taken Unknown] Doxycycline Hyclate [Vibramycin 100 MG (*)] 100 mg PO DAILY 04/09/17 [Last Taken Unknown] Morphine Sulfate [Ms Contin] 15 mg PO TID 04/09/17 [Last Taken Unknown] Ibuprofen [Motrin (*)] 400 mg PO Q6HRS PRN tab 04/15/17 [Last Taken Unknown] Nitrofurantoin Monohyd/M-Cryst [Macrobid 100 mg Capsule] 100 mg PO BID #20 capsule 05/04/17 [Last Taken Unknown] Dicyclomine [Bentyl 20 MG (*)] 20 mg PO QID MDD SPASM 08/06/17 [Last Taken Unknown] predniSONE 60 mg PO DAILY #15 tab 08/07/17 [Last Taken Unknown] Discharge Medications: Refer to the Discharge Home Medication list for PRN reason. PICC Care - Routine: N/A - Orders Services needed: Home Care, Registered Nurse, Certified Slag Dumper, Physical Therapy, Occupational Therapy Home Care Face to Face: I certify that this patient was under my care and that I had the required [id number] encounter meeting the encounter requirements on the discharge day. My findings support the fact that the patient is homebound as defined in Home Care Face to Face Continued: CMS Chapter 7 Medicare Benefits Manual 30.1.1 , The condition of the patient is such that there exists a normal inability to leave home and consequently, leaving home would require a considerable and taxing effort. Isolation Type: Droplet Isolation Diet Recommendation: no restrictions on diet - Follow Up Care Current Providers and Referrals: Patient,NotPresent [Unknown] - As per Instructions
--- NOTE | 2017-08-07 14:35 | GDS ---
[f rep st] DISCHARGE SUMMARY DISCHARGE DIAGNOSES: 1. Chronic obstructive pulmonary disease exacerbation. 2. Adult failure to thrive. 3. Acute on chronic hypoxemic respiratory failure. 4. Chronic pain. PHYSICAL EXAM: GENERAL: The patient is alert. VITAL SIGNS: Afebrile at 36.5, pulse is 85, respira tory rate 16, blood pressure is 135/65. She is saturating 92% on 3 L. I have seen and evaluated the patient on the day of discharge. HOSPITAL COURSE: The patient is a 81-year-old female with longstanding history of COPD. She present s to the emergency room with complaints of shortness of breath. She was evaluated and diagnosed with : 1. Chronic obstructive pulmonary disease exacerbation. During this hospitalization, she was treated with steroids as well as nebulizing treatments. Her condition has significantly improved. She is b ack down to 3 L of oxygen, which is her baseline oxygen requirement. 2. Acute on chronic hypoxemic respiratory failure. This is in the setting of COPD exacerbation. Th e patient has responded well to treatment. She has no signs of actual infection requiring antibiotic therapy. She has returned to her baseline oxygen needs. 3. Chronic pain. Her pain medications have been continued. DISPOSITION: The patient will be discharged home with her prearranged home care and assistance in e outpatient setting. There are no pending studies. DISCHARGE MEDICATIONS: Please refer to EMR form. I have not adjusted the patient's previously presc ribed home medications, to the best of my knowledge. FOLLOWUP: Will be with her primary care physician. I have spent greater than 35 minutes in the care, coordination, and management of this patient's disp osition. /[id number]/MODL
[2017-08-07 15:08] VITALS: BP 133/62; RESP 14; O2SAT 95
--- NOTE | 2017-08-07 15:30 | ASMTCMCOM ---
CM Note CM Note Notes: Spoke w/CHIEF CREDIT OFFICER, pt will dc home today. Pt is well known to us, lives in [address] housing with 15 steps to get to apt and requires being carried. Pt's neighbor Alex Holland has dowd to apt and is taking care of dog. Pt has non skilled services thru [facility], [facility], that provides an aide. This info was provided to CM by Rae Jean-Baptiste at [facility], . Pt is also current with [facility] , they provide RN services for medication management. Transportation arranged through [employer] confirmation # [id number] DC Plan: [facility] + [facility] Date Signed: 08/07/2017 03:30 PM Electronically Signed By:Flor Candelaria RN
--- NOTE | 2017-08-07 15:59 | ASMTLACE ---
BORISE Length of stay for Answers: 2 days current admission Acuity / Level of Answers: Yes Care: Did the patient have an inpatient admission? Comorbidities - select Answers: Chronic pulmonary disease all that apply # of Emergency department Answers: 5-8 visits in the last 6 months Social determinants Answers: Lack of community resources and/or lack of social support (no pcp, lives alone, transportation, ebony d) Score: 15 Date Signed: 08/07/2017 03:58 PM Electronically Signed By:Flor Candelaria RN
== END 2017-08-07 16:04 | disposition home health service (06) | DRG 190 ==
LOC: EDUNIT# → OBSVTOIN 20:04 → F3E 20:45
PROVIDERS: ADMIT Internal Medicine; ATTEND Internal Medicine
DX: J44.1 Chronic obstructive pulmonary disease with (acute) exacerbation (principal); J96.21 Acute and chronic respiratory failure with hypoxia; R62.7 Adult failure to thrive; G89.29 Other chronic pain; Z87.891 Personal history of nicotine dependence; Z99.81 Dependence on supplemental oxygen; Z95.0 Presence of cardiac pacemaker
CPT/HCPCS: 96374; 97161-GP; G8978-GP-CK; G8979-GP-CJ; J1650; J2930; J7512; J7613

== ENCOUNTER 2017-09-14 13:19 | Inpatient (IN) | payer OTHER, MEDICAID ==
--- NOTE | 2017-09-14 13:47 | CPEKG ---
Heart Rate: 118 RR Interval: 508 P-R Interval: 113 QRSD Interval: 110 QT Interval: 312 QTC Interval: 438 P Denniston: 0 QRS Denniston: 3 T Wave Denniston: -27 EKG Severity - ABNORMAL ECG - EKG Impression: SINUS TACHYCARDIA EKG Impression: IRBBB AND LPFB EKG Impression: artifact Electronically Signed By: Sola Mesa 14-Sep-2017 20:35:06
--- NOTE | 2017-09-14 13:58 | EDPHY ---
H & P Time Seen by Provider: 09/14/17 13:29 HPI/ROS: CHIEF COMPLAINT: Found down Limitations: The patient is unable to provide any clinical history HISTORY OF PRESENT ILLNESS: 81-year-old female with oxygen-dependent COPD and chronic pain presents after being found down. She was found on the floor unresponsive, with an initial oxygen saturation of 50% on room air. She was not wearing her oxygen. Bottles of narcotics around the house. She is now alert and tells me that she feels bad, but is unable to tell me any further history. REVIEW OF SYSTEMS: Unable to obtain Past Medical/Surgical History: COPD, on 3 L of oxygen by nasal cannula Chronic pain Social History: Lives in own home Smoking Status: Former smoker Physical Exam: General Appearance: obtunded, appears confused Eyes: Pupils equal and round, no conjunctival pallor or injection ENT, Mouth: Mucous membranes moist Neck: Normal inspection Respiratory: Normal respiratory rate, Lungs are clear to auscultation anteriorly Cardiovascular: Regular rate and rhythm Gastrointestinal: Abdomen is soft and nontender Back: decubitus ulcer on coccyx Neurological: obtunded, oriented to self, moves all extremities, does not follow commands Skin: Warm and dry Extremities: Normal inspection Psychiatric: Confused, somewhat agitated Constitutional: Initial Vital Signs Temperature (C) 37.2 C 09/14/17 13:19 Heart Rate 114 H 09/14/17 13:19 Respiratory Rate 18 09/14/17 13:19 Blood Pressure 150/70 H 09/14/17 13:19 O2 Sat (%) 94 09/14/17 13:19 O2 Delivery Mode Nasal Cannula O2 (L/minute) 4 Allergies/Adverse Reactions: duloxetine HCl [From Cymbalta] Allergy (Severe, Verified 08/06/17 19:21) Vomiting Iodinated Contrast- Oral and IV Dye Allergy (Severe, Verified 08/06/17 19:21) Other-Enter Comments aspirin Allergy (Intermediate, Verified 08/06/17 19:21) stomach pain cephalexin monohydrate [From Keflex] Allergy (Intermediate, Verified 08/06/17 19 :21) Stomach Pain codeine [Codeine] Allergy (Intermediate, Verified 08/06/17 19:21) Nausea Vomiting hydrocodone bitartrate [From Vicodin] Allergy (Intermediate, Verified 08/06/17 19:21) Nausea Vomiting orphenadrine Allergy (Intermediate, Verified 08/06/17 19:21) Stomach pain tetracycline [Tetracycline] Allergy (Intermediate, Verified 08/06/17 19:21) Stomach Pain celecoxib Allergy (Unknown, Verified 09/16/17 07:46) Weight gain, Fatigue, Increased Pain ciprofloxacin Allergy (Unknown, Verified 09/16/17 07:46) clarithromycin Allergy (Unknown, Verified 09/16/17 07:46) Stomach Pain levofloxacin Allergy (Unknown, Verified 09/16/17 07:46) Swelling/neck,face,throat linezolid Allergy (Unknown, Verified 09/16/17 07:46) sulfamethoxazole Allergy (Unknown, Verified 09/16/17 07:46) Nausea Vomiting amoxicillin trihydrate [From Augmentin] Allergy (Verified 08/06/17 19:21) potassium clavulanate [From Augmentin] Allergy (Verified 08/06/17 19:21) shrimp Allergy (Verified 08/06/17 19:21) ORPHENGESIC Allergy (Intermediate, Uncoded 08/06/17 19:21) Stomach Pain Terpin hydrate Allergy (Intermediate, Uncoded 08/06/17 19:21) Stomach pain amoxicillin trihydrate Allergy (Unknown, Uncoded 08/06/17 19:21) cephalexin monohydrate Allergy (Unknown, Uncoded 08/06/17 19:21) Stomach Pain duloxetine HCl Allergy (Unknown, Uncoded 08/06/17 19:21) Vomiting hydrocodone bitartrate Allergy (Unknown, Uncoded 08/06/17 19:21) Nausea Vomiting potassium clavulanate Allergy (Unknown, Uncoded 08/06/17 19:21) Home Medications: Medication Instructions Recorded Ascorbic Acid [Vitamin C 500 mg 1,000 mg PO BIDMEAL 08/26/13 (*)] Calcium Carbonate [Tums 500MG (*)] 1,000 - 1,500 mg PO DAILY PRN 08/26/13 Sennosides [Senokot] 2 - 3 each PO HS 08/26/13 Alendronate Sodium [Fosamax 70 MG 70 mg PO BERNAL@07 03/29/16 (*)] buPROPion XL [Wellbutrin 150mg XL] 300 mg PO DAILY 03/29/16 diphenhydrAMINE [Benadryl 25 MG 25 mg PO HS 05/17/16 (*)] Gabapentin [Neurontin 300 MG (*)] 600 mg PO BID 07/20/16 Cholecalciferol Vit D3 [Vitamin D3 1,000 units PO BID 08/11/16 (*)] Ipratropium/Albuterol [Duoneb (*)] 3 ml IH QID PRN 08/11/16 Levothyroxine [Synthroid 50 mcg 50 mcg PO DAILY06 09/24/16 (*)] oxyCODONE/APAP 5/325 [Percocet 1 tab PO Q4HRS PRN 11/22/16 5/325 (*)] Pantoprazole Sodium [Protonix 40mg 40 mg PO DAILY tab 11/28/16 (*)] Fluticasone/Salmeter 500/50Mcg 1 puffs IH BID 02/17/17 [Advair 500/50 (*)] Doxycycline Hyclate [Vibramycin 100 mg PO DAILY 04/09/17 100 MG (*)] Ibuprofen [Motrin (*)] 400 mg PO Q6HRS PRN tab 04/15/17 Dicyclomine [Bentyl 20 MG (*)] 20 mg PO QID MDD SPASM 08/06/17 Ondansetron Odt [Zofran Odt 4 mg 4 mg PO Q6 PRN 09/14/17 (*)] predniSONE 10 mg PO DAILY 09/14/17 Lidocaine 4%/Menthol 1% [Icy Hot 1 patch TD DAILY #30 patch 09/17/17 Lidocaine/Menthol 4%/1% Patch (*)] morphINE SR [Ms Contin/Oramorph 15 15 mg PO BID #60 tab 09/17/17 mg (*)] Medical Decision Making - Diagnostics EKG Interpretation: EKG interpreted by me reveals sinus tachycardia, rate 118, right bundle branch block pattern. Imaging Results: Head CT 09/14/17 14:01 Impression: 1. No acute intracranial findings. If symptoms persist and clinical suspicion warrants, consider MRI. 2. Diffuse cerebral atrophy with periventricular and subcortical low attenuation consistent with chronic microvascular ischemic gliosis. Findings discussed with LEOBARDO SCHAFFER 09/14/2017 at 15:10. CXR: NAD Imaging: Discussed imaging studies w/ facility operations manager Radiologist, I viewed and interpreted images myself ED Course/Re-evaluation: This pt presents with AMS. She is unable to provide any clinical history and there are no localizing signs on exam. Attempting to reach pt's ex-. 3:15 p.m.-the patient's ex- called back and tells that she has a history of chronic opioid use and abuse and has been admitted in the past because of narcotic overdose. Her evaluation is relatively unremarkable at this point and the presentation fits a potential overdose. She will certainly need to be admitted to the hospital for further evaluation and observation. Extensive ED evaluation unremarkable. Pt remains somnulent and unable to stand up. Will admit for observation to the hospitalist service for a presumptive dx of narcotic overdose. Differential Diagnosis: Altered mental status including but not limited to hypoglycemia, infectious process, electrolyte abnormality, head injury, CVA, and intoxicants. - Data Points Laboratory Results: Laboratory Results 09/14/17 14:20 09/14/17 14:20 Medications Given: Discontinued Medications Acetaminophen (Tylenol) 650 mg PO Q4 PRN PRN Reason: Pain, Mild/Fever, Can Take PO Stop: 03/13/18 17:47 Last Admin: 09/15/17 17:35 Dose: 650 mg Acetaminophen (Tylenol) 500 mg PO ONCE ONE Stop: 09/15/17 20:11 Last Admin: 09/15/17 20:33 Dose: 500 mg Acetaminophen (Tylenol) 1,000 mg PO Q8H TAVIA Stop: 03/15/18 05:59 Last Admin: 09/16/17 13:42 Dose: 1,000 mg Acetaminophen (Tylenol) 500 mg PO ONCE ONE Stop: 09/16/17 00:51 Last Admin: 09/16/17 00:59 Dose: 500 mg Albuterol/Ipratropium (Duoneb) 3 ml IH Q6 TAVIA Stop: 03/13/18 17:59 Last Admin: 09/16/17 16:22 Dose: 3 ml Bupropion HCl (Wellbutrin Xl) 300 mg PO DAILY TAVIA Stop: 03/14/18 08:59 Last Admin: 09/17/17 07:55 Dose: 300 mg Dicyclomine HCl (Bentyl) 20 mg PO QID TAVIA Stop: 03/14/18 05:59 Last Admin: 09/17/17 12:51 Dose: Not Given Diphenhydramine HCl (Benadryl) 25 mg PO HS TAVIA Stop: 03/15/18 20:59 Last Admin: 09/16/17 21:44 Dose: 25 mg Doxycycline Hyclate (Doxycycline Hyclate) 100 mg PO DAILY TAVIA PRN Reason: Protocol Stop: 10/15/17 08:59 Last Admin: 09/17/17 10:26 Dose: 100 mg Enoxaparin Sodium (Lovenox) 40 mg SC DAILY TAVIA Stop: 03/14/18 08:59 Last Admin: 09/17/17 07:48 Dose: 40 mg Gabapentin (Neurontin) 600 mg PO BID TAVIA Stop: 03/14/18 03:35 Last Admin: 09/17/17 07:55 Dose: 600 mg Hydromorphone/Sodium Chloride (Hydromorphone) 0.5 mg IVP ONCE ONE Stop: 09/15/17 05:01 Last Admin: 09/15/17 04:53 Dose: 0.5 mg Sodium Chloride (Ns) 1,000 mls @ 100 mls/hr IV CONT TAVIA Stop: 03/13/18 17:59 Last Admin: 09/16/17 01:04 Dose: 1,000 mls Ibuprofen (Motrin) 400 mg PO Q6HRS PRN PRN Reason: Pain, Inflammatory Stop: 03/15/18 16:54 Last Admin: 09/17/17 05:46 Dose: 400 mg Ketorolac Tromethamine (Toradol) 15 mg IVP Q6 PRN PRN Reason: Pain, Inflammatory Stop: 09/19/17 17:47 Last Admin: 09/16/17 18:25 Dose: 15 mg Levothyroxine Sodium (Synthroid) 50 mcg PO DAILY06 TAVIA Stop: 03/14/18 05:59 Last Admin: 09/17/17 05:47 Dose: 50 mcg Melatonin (Melatonin) 3 mg PO HS TAVIA Stop: 03/14/18 22:44 Last Admin: 09/15/17 22:47 Dose: 3 mg Miscellaneous Information (Patch Removal) 1 ea TD DAILY21 [facility] Stop: 03/14/18 15:59 Last Admin: 09/16/17 21:48 Dose: Not Given Miscellaneous Medication (Icy Hot Lidocaine/Menthol 4%/1% Patch) 1 patch TD DAILY TAVIA Stop: 03/14/18 03:59 Last Admin: 09/17/17 07:51 Dose: 1 patch Morphine Sulfate (Ms Contin/Oramorph) 15 mg PO TID [facility] Stop: 09/26/17 21:59 Last Admin: 09/17/17 07:55 Dose: 15 mg Ondansetron HCl (Zofran) 4 mg IVP Q4 PRN PRN Reason: Nausea/Vomiting, Can't Take PO Stop: 03/13/18 17:47 Last Admin: 09/16/17 08:27 Dose: 4 mg Ondansetron HCl (Zofran Odt) 4 mg PO Q4 PRN PRN Reason: Nausea/Vomiting, Can't Take PO Stop: 03/15/18 22:03 Last Admin: 09/17/17 10:27 Dose: 4 mg Oxycodone/Acetaminophen (Percocet 5/325) 1 tab PO Q4HRS PRN PRN Reason: Pain, Severe Able to Take PO Stop: 09/26/17 16:54 Last Admin: 09/17/17 12:53 Dose: 1 tab Pantoprazole Sodium (Protonix) 40 mg PO DAILY TAVIA Stop: 03/14/18 08:59 Last Admin: 09/17/17 07:55 Dose: 40 mg Prednisone (Prednisone) 10 mg PO DAILY TAVIA Stop: 03/14/18 08:59 Last Admin: 09/17/17 07:55 Dose: 10 mg Pseudoephedrine HCl (Sudafed) 30 mg PO Q6HRS PRN PRN Reason: Headache Stop: 03/14/18 12:27 Last Admin: 09/15/17 13:06 Dose: 30 mg Fluticasone/Salmeterol (Advair) 1 puffs IH BID TAVIA Stop: 03/14/18 08:59 Last Admin: 09/17/17 08:32 Dose: 1 puffs Senna (Senokot) 2 - 3 tab PO HS TAVIA Stop: 03/14/18 20:59 Last Admin: 09/16/17 21:44 Dose: 3 tab Departure - Departure Disposition: [facility] Acute Clinical Impression: Altered mental status Qualifiers: Altered mental status type: somnolence Qualified Code(s): R40.0 - Somnolence Condition: Fair
[2017-09-14 14:36] LABS: PLATELET COUNT 316 10^3/uL (150-400)
[2017-09-14] MEDS ORDERED: ACETAMINOPHEN 650 MG SUPP PR PRN (17:48)
[2017-09-14] MEDS: IPRATROPIUM/ALBUTEROL 3 ML DEYVIAL IH SCH ×2 (18:02→23:48)
[2017-09-14] MEDS: NS 1,000 ML IV SCH (18:02)
--- NOTE | 2017-09-14 18:40 | GHP ---
[f rep st] HISTORY AND PHYSICAL DATE OF ADMISSION: 09/14/2017 CHIEF COMPLAINT: Found down. HISTORY-SEEN: Patient is a 81-year-old female who was found down in her home unresponsive. It is un clear who called EMS. She does live alone. Per EMS report, her saturation was 50% on room air on ar rival and she was not wearing her oxygen and her oxygen equipment was nowhere close to where she was found. It was suspicious that she was not wearing it. There were multiple bottles of narcotics foun d throughout the home. Patient is waking up and breathing okay and she was therefore not administere d Narcan in the emergency room. She was found to have a decubitus ulcer. The patient is unable to p rovide any further history at this time. She answers in one-word answers to very simple questions bu t not in a reliable way. PAST MEDICAL HISTORY: 1. COPD on chronic oxygen. 2. Chronic pain on chronic narcotics. 3. 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 4. Complete heart block, status post pacemaker. 5. Constipation with chronic laxative abuse. MEDICATIONS: Please see computer record for full detailed list. ALLERGIES: Iodine and aspirin. SOCIAL HISTORY: Smoking and alcohol history are unknown. She lives alone. Her home was in very poo r state and smelled like urine throughout. REVIEW OF SYSTEMS: Complete review of systems obtained. Review of systems negative for constitution al, HEENT, GI, pulmonary, cardiovascular, , hematology, skin, musculoskeletal, endocrine, psych, ex cept for positives or negatives as in HPI. FAMILY HISTORY: Unobtainable due to patient is unresponsive. PHYSICAL EXAMINATION: GENERAL: Well-developed, well-nourished female, in no acute distress. VITAL S IGNS: Temperature 37.2, pulse 114, blood pressure 150/70, saturating 94% on 4 L. EYES: Normal conj unctivae. Pupils reactive to light. ENT: Normal ears and nose. Hearing intact. Normal teeth. Or opharynx moist. NECK: Trachea midline. No thyromegaly. CHEST: Normal effort. LUNGS: Clear to au scultation bilaterally. CARDIOVASCULAR: Tachycardic. No murmur. No lower extremity edema. ABDOMEN : Soft, nontender. No hepatosplenomegaly. SKIN: Warm, dry, intact. No rash. MUSCULOSKELETAL: N o cyanosis or clubbing. Strength appears equal bilaterally. She does move all extremities equally w hen she becomes agitated. NEURO: Cranial nerves grossly intact. I was unable to assess sensation. PSYCH: She is awake, alert. She cannot tell me her name or where she is, but she does answer full worded questions clearly although the answers do not make sense. Poor judgment and insight. Poor me margo. LABORATORY DATA: White count 10.13, hematocrit 41.5, platelets 316. Sodium 136, potassium 4.0, chlo ride 96, bicarb 32, BUN 11, creatinine 0.6, glucose 59. Troponin is negative. EKG viewed by me. My personal interpretation is sinus tachycardia. Poor tremulous baseline. Chest x-ray is negative. H ead CT is negative. Medical records reviewed. She has multiple previous hospitalizations and her home is known to be in very poor repair. ASSESSMENT/PLAN: 1. Encephalopathy. Differential diagnosis is toxic encephalopathy due to narcotics versus anoxic en cephalopathy due to hypoxemia and noncompliance with oxygen versus a metabolic encephalopathy. At th is point, I doubt that she has had a stroke as her exam is grossly nonfocal but could consider an MRI if she does not wake up appropriately or her exam becomes more focal. For now, she will be treated supportively and will monitor clinical course. 2. Chronic obstructive pulmonary disease with chronic oxygen requirement. Now that she is back on o xygen, I suspect she is near her baseline. Will schedule nebulizers and clarify her home inhaler reg imen. 3. Decubitus ulcer present on admission. Will consult Wound Care. 4. Chronic pain with continuous narcotic dependency. Will hold all narcotics until her mental statu s improves. 5. 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 She is supposed to be on chronic suppressive oral antibiotics. Will clarify home med rec. 6. Complete heart block, status post pacemaker. Will order a pacemaker interrogation. 7. Constipation with a history of chronic laxative abuse. Will monitor her bowel activity. 8. Tachycardia. I suspect she is hypovolemic from being found down for an undetermined period of ti me. Will hydrate her with intravenous fluid. Will check a D-dimer and if her tachycardia does not r esolve, could consider working up for pulmonary embolus. CODE STATUS: Full. As unable to specify her wishes at this time, this could be clarified once she i s able to communicate. ADMISSION STATUS: Will admit to inpatient as she is clearly in an unsafe living situation which need s to be addressed during this hospitalization. Anticipate greater than 2 midnights for medical stabi lization. DVT PROPHYLAXIS: She is [id number] risk. Will place on subcu Lovenox. /[id number]/MODL
--- NOTE | 2017-09-14 18:44 | ASMTCMCOM ---
CM Note CM Note Notes: Pt presented to the ED via EMS after being found down and unresponsive at home. Patient was found by a caregiver through [facility]. EMS reported that patient was not wearing her oxygen and there were bottles of narcotics around her. Pt admitted for AMS and hypoxia. Pt recently admitted to [facility] from 08/06-08/07/17 for COPD exacerbation. Pt started to become a little more alert and responsive in the ED but was still unable to say where she was or what had happened. ED Provider spoke with pt's ex- Sedrick Martinez ([phone]) and he reported patient has a history of opioid dependence and narcotic overdoses. This CM spoke with Sedrick "Artie" ([phone]) who stated "I have three ideas of what is going on: 1st is oxygen issue, 2nd is the OD, and 3rd is she not eating and she is weak." Artie would like to continue to be updated on patient's status. Alva also mentioned that pt's dog, Jackie, is being taking care of by pt's neighbor, Alex Holland. Spoke with MIKEL Tomlin at [facility] ([phone]). Sada states they provide medication management. Sada states patient was last seen on Thu09/09/17 and that pt's compliance advisor Dr Lake at [facility] ([phone]) was hoping to transition patient off morphine and recommended patient use her PRN Percocet for pain control. Sada also mentioned that the patient had an old bottle of Dilaudid in her apt but that the pt was instructed to not use it. Sada mentioned she has been concerned about patient's cognitive functioning and she thinks patient should "live in a facility with higher level of monitoring," but patient always refuses SNF. This CM requested Sada to fax their current list of the pt's medications to the ED Fax but it was never received. Patient also receives daily visits and [employer] non-skilled homemaking and personal care services through [facility] ([phone]). Spoke with staff who said their neurology manager Shruthi ([phone]) was going to be coming to the hospital to visit patient. This CM called and left a voicemail with pt's [facility] Tiller Worker, Rae Jean-Baptiste ([phone]); but have not heard back. Anticipate PT/OT/TRIMMER MEAT evals and if patient recovers well, patient will return home with HC (skilled and non-skilled). CM to follow. Date Signed: 09/14/2017 06:44 PM Electronically Signed By:Irena So RN
--- NOTE | 2017-09-14 18:50 | ASMTLACE ---
SALVADOR Acuity / Level of Answers: Yes Care: Did the patient have an inpatient admission? Comorbidities - select Answers: Chronic pulmonary disease all that apply History of falls Opioid dependence / Chronic pain # of Emergency department Answers: 5-8 visits in the last 6 months Social determinants Answers: History of substance abuse (ETOH, street drugs, prescription drugs, etc.) Score: 19 Date Signed: 09/14/2017 06:49 PM Electronically Signed By:Irena So RN
[2017-09-14] MEDS: KETOROLAC 30 MG/1 ML SDV IVP PRN (19:48)
[2017-09-14] MEDS: ACETAMINOPHEN 325 MG TAB PO PRN (20:38)
[2017-09-14] MEDS: ONDANSETRON 4 MG/2 ML VIAL IVP PRN (21:08)
[2017-09-15 02:47] LABS: PLATELET COUNT 274 10^3/uL (150-400)
[2017-09-15] MEDS: ONDANSETRON 4 MG/2 ML VIAL IVP PRN ×3 (02:48→19:31)
[2017-09-15] MEDS: KETOROLAC 30 MG/1 ML SDV IVP PRN ×4 (03:06→23:48)
[2017-09-15 03:10] LABS: CREATINE KINASE 31 IU/L (0-156)
[2017-09-15] MEDS: GABAPENTIN 300 MG CAP PO SCH ×2 (03:50→20:33)
[2017-09-15] MEDS: LIDOCAINE 4%/MENTHOL 1% PATCH TD SCH (03:51)
[2017-09-15] MEDS: NS 1,000 ML IV SCH ×2 (03:58→14:18)
[2017-09-15] MEDS: DICYCLOMINE 20 MG TAB PO SCH ×4 (04:55→20:33)
[2017-09-15] MEDS: LEVOTHYROXINE 50 MCG TAB PO SCH (04:55)
[2017-09-15] MEDS ORDERED: HYDROmorphone HCL/NS 0.5 MG/ML SYR IVP ONE (05:00)
[2017-09-15] MEDS: IPRATROPIUM/ALBUTEROL 3 ML DEYVIAL IH SCH ×4 (05:00→21:49)
[2017-09-15] MEDS: ENOXAPARIN 40 MG/0.4 ML SYR SC SCH (08:39)
[2017-09-15] MEDS: PANTOPRAZOLE SODIUM 40 MG TAB PO SCH (08:39)
[2017-09-15] MEDS: predniSONE 10 MG TAB PO SCH (08:40)
[2017-09-15] MEDS: DOXYCYCLINE HYCLATE 100 MG CAP/TAB PO SCH (08:40)
[2017-09-15] MEDS: buPROPion XL 150 MG TAB PO SCH (08:40)
--- NOTE | 2017-09-15 08:46 | WOCRNPDOC ---
WOCRN Advanced Assessment Note - Skin Integrity Problem, Advanced Assess Coccyx Dressing Type: Mepilex Border Dressing Description: Saturated (urine) Integumentary Issue Intervention: [place] Removed, Barrier Cream Applied ( Calazime) Chandrika Wound Swelling: None Wound Bed Color: Red Wound Bed Constitution: Red/[place] - Non Granular Tissue Site Measurement - Head-to-Toe Length X Width X Depth (cm): 2.5cmx0.4cmx0.1cm Skin Integrity Problem Comment: Linear, partial-thickness tissue loss noted directly over coccyx, appearance consistent w/ intertriginous dermatitis r/t chronic moisture from urine. No periwound erythema or swelling. Existing dressing saturated w/ urine, trapping moisture against the skin. Removed dressing, and applied Calazime barrier cream over the wound and surrounding skin. This is not a pressure-related wound. Will have nursing encourage pt. to off-load area, as the site in vulnerable to breakdown r/t incontinence.
--- NOTE | 2017-09-15 08:49 | PDMN ---
Medical Necessity Medical necessity: Change to IP, as of 09/14/17, per MD; los >2 mn for ongoing management of toxic encephalopathy r/t narcotics vs anoxic encephalopathy r/t hypoxemia/noncompliance w/oxygen vs metabolic encephalopathy, as well as decubitus ulcer & tachycardia; admit for further workup/monitoring, IVFs, Wound Care consult, therapies & CM consult for dc planning; hx COPD, chronic pain w/ narcotic dependence, chronic R hip infection, complete heart block s/p pacer; per H&P & order 09/14/17
[2017-09-15] MEDS ORDERED: ENOXAPARIN 40 MG/0.4 ML SYR SC SCH (09:00)
[2017-09-15] MEDS ORDERED: GABAPENTIN 300 MG CAP PO SCH (09:00)
[2017-09-15] MEDS: ACETAMINOPHEN 325 MG TAB PO PRN ×2 (09:03→17:35)
[2017-09-15] MEDS: FLUTICASONE/SALMETER 500/50MCG DISKUS IH SCH ×3 (10:37→21:49)
[2017-09-15] MEDS ORDERED: PSEUDOEPHEDRINE HCL 30 MG TAB PO PRN (12:28)
--- NOTE | 2017-09-15 15:29 | ASMTCMCOM ---
CM Note CM Note Notes: Met with patient today who states she does not want to go to SNF rehab. She has tried it in the past and does not like it. Patient wants to return home with the support of HCBS services which helps her with chores, personal hygiene, housework, grocery shopping. She has had [facility] and states they can do her nursing or any PT/OT she might need. Left a message for S[facility] with [facility] ([phone][facility]. There is a prior notation from Irena Barkley stating Sada thinks patient needs a higher level of care but Sada also notes patient has always refused this option. Awaiting Sada's return call to get more detail about the bottles of narcotics found around patient when she was unresponsive at home. Currently, the D/C plan is home with home health and HCBS services when patient is medically stable. Patient did state she was very distressed she cannot remember what happened and feels she lost the whole day yesterday. CM will follow. Date Signed: 09/15/2017 03:28 PM Electronically Signed By:Hodan Guillen LCSW
--- NOTE | 2017-09-15 15:51 | HOSPPROG ---
Hospitalist Progress Note Assessment/Plan: # acute presumed toxic encephalopathy-secondary to misuse of narcotics- patient admitted with marked somnolence after being found down CT head (personally viewed and interpreted) no acute abnormalities - sodium 137 Patient received supportive care overnight held narcotic and sedating medications and has markedly improved this a.m. - continue to hold narcotics and sedating meds - case management evaluation for safety of the home - PT and OT evaluations for disposition recommendations # chronic hypoxic respiratory failure secondary to COPD- patient at baseline O2 requirement Oxygen saturations 94% on 3 L - continue home meds # chronic prosthetic joint infection- continue suppressive antibiotic therapy with doxycycline # decubitus ulceration - present on admission - wound care consultation # prophylaxis Lovenox # diet regular # disposition greater than 2 midnights as the patient needs case management consultation and coordination of care for safe discharge I have discussed the case with the RN and case managers we have reservations about the patient returning home secondary to safety of her environment Subjective: Wants to return home Objective: Vital Signs Temp Pulse Resp BP Pulse Ox 36.8 C 92 16 141/74 H 91 L 09/15/17 15:13 09/15/17 15:13 09/15/17 15:13 09/15/17 15:13 09/15/17 15:13 Laboratory Results 09/15/17 02:35 09/15/17 02:35 - Physical Exam Constitutional: chronically ill appearing, unkempt Eyes: anicteric sclera Ears, Nose, Mouth, Throat: dry mucous membranes Cardiovascular: regular rate and rhythym Respiratory: no respiratory distress, no rales or rhonchi Gastrointestinal: normoactive bowel sounds Genitourinary: no bladder fullness Skin: warm Musculoskeletal: No asymmetric calves Neurologic: AAOx3 Psychiatric: anxious, No encephalopathic Lymph, Heme, Immunologic: no cervical LAD ICD10 Worksheet Patient Problems: Problems Problem Status Onset Altered mental status Acute Abdominal pain Acute Abdominal pain Acute Acute respiratory failure Acute Back pain Acute COPD (chronic obstructive pulmonary disease) Acute Chest discomfort Acute Chronic left hip pain Acute Chronic obstructive pulmonary disease with acute exacerbation Acute Complete heart block Acute Dyspnea Acute Dyspnea Acute Elevated troponin Acute Gastric ulcer with perforation Acute Generalized weakness Acute Hip dislocation, left Acute Hypoxemia Acute Nausea Acute Osteoporosis Acute Palliative care encounter Acute S/P hip replacement Acute Syncope Acute chronic disease mgmt/transitional care Acute
[2017-09-15] MEDS: SENNOSIDES 1 TAB PO SCH (19:38)
[2017-09-15] MEDS ORDERED: ACETAMINOPHEN 500 MG TAB PO ONE (20:10)
[2017-09-15] MEDS ORDERED: MELATONIN 3 MG TAB PO SCH (22:45)
[2017-09-15] MEDS: PATCH REMOVAL 1 EA PATCH TD SCH (23:32)
[2017-09-16] MEDS ORDERED: ACETAMINOPHEN 500 MG TAB PO ONE (00:50)
[2017-09-16] MEDS: NS 1,000 ML IV SCH (01:04)
[2017-09-16] MEDS: ACETAMINOPHEN 500 MG TAB PO SCH ×2 (05:32→13:42)
[2017-09-16] MEDS: DICYCLOMINE 20 MG TAB PO SCH ×4 (05:33→21:50)
[2017-09-16] MEDS: LEVOTHYROXINE 50 MCG TAB PO SCH (05:33)
[2017-09-16] MEDS: IPRATROPIUM/ALBUTEROL 3 ML DEYVIAL IH SCH ×3 (06:04→16:22)
[2017-09-16] MEDS: KETOROLAC 30 MG/1 ML SDV IVP PRN ×2 (07:06→18:25)
[2017-09-16] MEDS: DOXYCYCLINE HYCLATE 100 MG CAP/TAB PO SCH (08:15)
[2017-09-16] MEDS: predniSONE 10 MG TAB PO SCH (08:15)
[2017-09-16] MEDS: GABAPENTIN 300 MG CAP PO SCH ×2 (08:15→21:45)
[2017-09-16] MEDS: buPROPion XL 150 MG TAB PO SCH (08:16)
[2017-09-16] MEDS: PANTOPRAZOLE SODIUM 40 MG TAB PO SCH (08:16)
[2017-09-16] MEDS: ENOXAPARIN 40 MG/0.4 ML SYR SC SCH (08:17)
[2017-09-16] MEDS: LIDOCAINE 4%/MENTHOL 1% PATCH TD SCH (08:19)
[2017-09-16] MEDS: ONDANSETRON 4 MG/2 ML VIAL IVP PRN (08:27)
[2017-09-16 08:48] LABS: PLATELET COUNT 263 10^3/uL (150-400)
[2017-09-16] MEDS: FLUTICASONE/SALMETER 500/50MCG DISKUS IH SCH ×2 (09:49→21:07)
--- NOTE | 2017-09-16 15:06 | ASMTCMCOM ---
CM Note CM Note Notes: Spoke with Rae at [facility] regarding number of hours pt is eligible for services through Medicaid HCBS. Pt is maxed out on the number of hours she can receive for non-skilled care. We discussed the possiblity of pt's appropriateness for Medicaid in-home support services. This program could potentially provide up to 16 hours a day.Pt would need to be assessed and then a care plan is written. Also spoke with Shruthi, the programming development project manager of [facility], who provides some of pt's non-skilled HCBS care. She said in the past pt has been resistant to new caregivers from [place] and wants Shruthi to be there "often." If pt is approved for the in-home support services, she would have to accept other CGs than just the two she is accustomed to. Pt is in denial regarding the possibilty she may have taken too much of her pain medication. She was surprised when informed she has had 12 ED visits in the past year and knows something needs to change. She is agreeable to having increased support in the home and understands she will need to accept other CGs if the program is approved. She was appreciative of the possibility of more care as she wants to stay in her home. She would like to d/c home tomorrow if medically cleared. A referral was sent to [facility] - she is current with them for RN but would also need PT/OT at this time. Date Signed: 09/16/2017 03:05 PM Electronically Signed By:CORI Ghotra
[2017-09-16] MEDS ORDERED: IBUPROFEN 200 MG TAB PO PRN (16:55)
[2017-09-16] MEDS ORDERED: IPRATROPIUM/ALBUTEROL 3 ML DEYVIAL IH PRN (16:55)
--- NOTE | 2017-09-16 16:55 | HOSPPROG ---
Hospitalist Progress Note Assessment/Plan: * Toxic encephalopathy - suspect narcotics but patient adamantly denies -mental status returned to normal with supportive care -resume home narcotics with close observation * COPD with chronic respiratory failure -not wearing O2 at time of admission - 50% RA when found -now back to baseline O2, denies CP/SOB * Chronic infection prosthetic hip - chronic suppressive PO doxycycline * Decub ulcer - POA -wound care * Pacemaker Subjective: c/o severe left hip pain since we are holding her narcotics, denies taking too much, describes strict documentation at home tracking her use. Refuses SNF, does very well with HH provided by medicaid Objective: Vital Signs Temp Pulse Resp BP Pulse Ox 36.7 C 81 20 153/79 H 98 09/16/17 15:32 09/16/17 16:24 09/16/17 15:32 09/16/17 15:32 09/16/17 16:24 Laboratory Results 09/16/17 08:40 09/15/17 02:35 09/15/17 09/16/17 09/17/17 05:59 05:59 05:59 Intake Total 920 Balance 920 hip xray negative - Physical Exam Constitutional: no apparent distress, appears nourished, not in pain Cardiovascular: regular rate and rhythym, no murmur, rub, or gallop Respiratory: no respiratory distress, no rales or rhonchi, clear to auscultation Gastrointestinal: normoactive bowel sounds, soft, non-tender abdomen, no palpable masses Skin: no rashes or abrasions, no fluctuance, no induration Neurologic: AAOx3, sensation intact bilaterally Psychiatric: interacting appropriately, not anxious, not encephalopathic, thought process linear ICD10 Worksheet Patient Problems: Problems Problem Status Onset Altered mental status Acute Abdominal pain Acute Abdominal pain Acute Acute respiratory failure Acute Back pain Acute COPD (chronic obstructive pulmonary disease) Acute Chest discomfort Acute Chronic left hip pain Acute Chronic obstructive pulmonary disease with acute exacerbation Acute Complete heart block Acute Dyspnea Acute Dyspnea Acute Elevated troponin Acute Gastric ulcer with perforation Acute Generalized weakness Acute Hip dislocation, left Acute Hypoxemia Acute Nausea Acute Osteoporosis Acute Palliative care encounter Acute S/P hip replacement Acute Syncope Acute chronic disease mgmt/transitional care Acute
[2017-09-16] MEDS: OXYCODONE/APAP 5/325 TAB PO PRN (18:23)
[2017-09-16] MEDS ORDERED: diphenhydrAMINE 25 MG CAP PO SCH (21:00)
[2017-09-16] MEDS: morphINE SR 15 MG TAB PO SCH (21:40)
[2017-09-16] MEDS: SENNOSIDES 1 TAB PO SCH (21:44)
[2017-09-16] MEDS: PATCH REMOVAL 1 EA PATCH TD SCH (21:48)
[2017-09-16] MEDS: ONDANSETRON DISINTEGRATING 4 MG TAB PO PRN (22:08)
[2017-09-17] MEDS: DICYCLOMINE 20 MG TAB PO SCH ×2 (05:47→12:51)
[2017-09-17] MEDS: ONDANSETRON DISINTEGRATING 4 MG TAB PO PRN ×2 (05:47→10:27)
[2017-09-17] MEDS: LEVOTHYROXINE 50 MCG TAB PO SCH (05:47)
[2017-09-17] MEDS: ENOXAPARIN 40 MG/0.4 ML SYR SC SCH (07:48)
[2017-09-17] MEDS: LIDOCAINE 4%/MENTHOL 1% PATCH TD SCH (07:51)
[2017-09-17] MEDS: GABAPENTIN 300 MG CAP PO SCH (07:55)
[2017-09-17] MEDS: buPROPion XL 150 MG TAB PO SCH (07:55)
[2017-09-17] MEDS: morphINE SR 15 MG TAB PO SCH (07:55)
[2017-09-17] MEDS: predniSONE 10 MG TAB PO SCH (07:55)
[2017-09-17] MEDS: PANTOPRAZOLE SODIUM 40 MG TAB PO SCH (07:55)
[2017-09-17] MEDS: FLUTICASONE/SALMETER 500/50MCG DISKUS IH SCH (08:32)
[2017-09-17 08:38] VITALS: RESP 16
--- NOTE | 2017-09-17 10:15 | PDIAF ---
- Diagnosis Diagnosis: found down Code Status: Full Code - Medication Management Discharge Medications: Medications to Continue on Transfer Ascorbic Acid [Vitamin C 500 mg (*)] 1,000 mg PO BIDMEAL 08/26/13 [Last Taken ] Calcium Carbonate [Tums 500MG (*)] 1,000 - 1,500 mg PO DAILY PRN 08/26/13 [Last Taken 08/18/16] Sennosides [Senokot] 2 - 3 each PO HS 08/26/13 [Last Taken 12/10/16] Alendronate Sodium [Fosamax 70 MG (*)] 70 mg PO BERNAL@07 03/29/16 [Last Taken 11/30] buPROPion XL [Wellbutrin 150mg XL] 300 mg PO DAILY 03/29/16 [Last Taken 12/10/16 ] diphenhydrAMINE [Benadryl 25 MG (*)] 25 mg PO HS 05/17/16 [Last Taken 12/09/16] Gabapentin [Neurontin 300 MG (*)] 600 mg PO BID 07/20/16 [Last Taken 12/09/16] Cholecalciferol Vit D3 [Vitamin D3 (*)] 1,000 units PO BID 08/11/16 [Last Taken 12/10/16] Ipratropium/Albuterol [Duoneb (*)] 3 ml IH QID PRN 08/11/16 [Last Taken 11/21/16 ] Levothyroxine [Synthroid 50 mcg (*)] 50 mcg PO DAILY06 09/24/16 [Last Taken ] oxyCODONE/APAP 5/325 [Percocet 5/325 (*)] 1 tab PO Q4HRS PRN 11/22/16 [Last Taken 12/10/16 21:00] Pantoprazole Sodium [Protonix 40mg (*)] 40 mg PO DAILY tab 11/28/16 [Last Taken 12/10/16] Fluticasone/Salmeter 500/50Mcg [Advair 500/50 (*)] 1 puffs IH BID 02/17/17 [ Last Taken Unknown] Doxycycline Hyclate [Vibramycin 100 MG (*)] 100 mg PO DAILY 04/09/17 [Last Taken Unknown] Ibuprofen [Motrin (*)] 400 mg PO Q6HRS PRN tab 04/15/17 [Last Taken Unknown] Dicyclomine [Bentyl 20 MG (*)] 20 mg PO QID MDD SPASM 08/06/17 [Last Taken Unknown] Ondansetron Odt [Zofran Odt 4 mg (*)] 4 mg PO Q6 PRN 09/14/17 [Last Taken Unknown] predniSONE 10 mg PO DAILY 09/14/17 [Last Taken Unknown] Lidocaine 4%/Menthol 1% [Icy Hot Lidocaine/Menthol 4%/1% Patch (*)] 1 patch TD DAILY #30 patch 09/17/17 [Last Taken Unknown] morphINE SR [Ms Contin/Oramorph 15 mg (*)] 15 mg PO BID #60 tab 09/17/17 [Last Taken Unknown] Additional Medication Instructions: Reduce MS Contin to 15mg twice daily ( rather than 3x daily) Discharge Medications: Refer to the Discharge Home Medication list for PRN reason. - Orders Services needed: Home Care, Registered Nurse, Master Foot Piece Assembler, Physical Therapy, Occupational Therapy Home Care Face to Face: I certify that this patient was under my care and that I had the required [id number] encounter meeting the encounter requirements on the discharge day. My findings support the fact that the patient is homebound as defined in Home Care Face to Face Continued: CMS Chapter 7 Medicare Benefits Manual 30.1.1 , The condition of the patient is such that there exists a normal inability to leave home and consequently, leaving home would require a considerable and taxing effort. Isolation Type: None Oxygen: 24/7 - do not take off, even for short periods of time Diet Recommendation: no restrictions on diet Wound Care Instructions: Calazime Paste protectant - Please apply in a thick layer to linear wound over coccyx BID and PRN. Offloading cushion. - Follow Up Care Current Providers and Referrals: Patient,NotPresent [Unknown] - As per Instructions Shon Agarwal MD [[facility] Primary Care Provider] -
[2017-09-17] MEDS: DOXYCYCLINE HYCLATE 100 MG CAP/TAB PO SCH (10:26)
--- NOTE | 2017-09-17 10:52 | GDS ---
[f rep st] DISCHARGE SUMMARY DIAGNOSIS: 1. Toxic/hypoxic encephalopathy. 2. Chronic obstructive pulmonary disease with chronic respiratory failure. 3. Chronic infection of a prosthetic hip, on chronic suppressive antibiotics. 4. Decubitus ulcer present on admission. 5. Pacemaker. HISTORY: Tahira is a 81-year-old female who was found down at her home. She takes chronic narcotics and is chronically on oxygen for COPD. At the time that she was found, she was not wearing her oxygen and the equipment was no where near her body and narcotic bottles were found scattered throughout th e home. It was suspicious that she had mis-administered narcotics and/or was not being compliant with her oxygen and had gone down. We observed her in the hospital and put her back on her chronic oxyge n and withheld narcotics, and she rapidly returned back to baseline. She is now stable on her usual 3 L. She has woken up and become appropriate regarding mental status. She adamantly denies narcotic abuse and is actually willing to decrease her chronic doses at the time of discharge. She has minim co support and working with case management. We are maximizing her home care through Medicare and [place] dicaid including a social service coordinator and a nurse for home medication compliance monitoring. Incidentally noted on presentation was a decubitus ulcer. Wound care has seen her and we will contin ue wound care orders upon discharge. DISCHARGE MEDICATIONS: Please see computer record for full detailed list. New medication: 1. Icy Hot lidocaine patches 1 daily available OTC. 2. MS Contin decreased to 15 mg p.o. twice daily. ADDITIONAL DISCHARGE INSTRUCTIONS: 1. Home health, PT, OT, VNS and social work ordered. 2. Patient advised regarding wearing oxygen 24/ and it cannot be taken off even for short periods o f time. 3. Calazime paste protectant to the coccyx wound twice daily and offloading. 4. Follow up with Dr. Shon Agarwal, her wagon driller, who also is her prescriber of narcotics. H e will be copied on this report. TIME SPENT: Greater than 30 minutes' time was spent arranging this discharge. Patient seen and exam ined by me on the day of discharge. /[id number]/MODL
[2017-09-17 12:15] VITALS: BP 145/75; PULSE 87; TEMP 97.5; O2SAT 96
[2017-09-17] MEDS: OXYCODONE/APAP 5/325 TAB PO PRN (12:53)
--- NOTE | 2017-09-17 16:34 | ASDISCHSUM ---
Discharge Information Plan Status:Home with Home Health Medically Cleared to Leave: Discharge Date:09/17/2017 01:05 PM CM D/C Disposition:Home, Routine, Self-Care ADT D/C Disposition:Home Health Service Projected Discharge Date:09/17/2017 11:00 AM Transportation at D/C:Medicaid Transportation Discharge Delay Reason: Follow-Up Date:09/17/2017 11:00 AM Discharge Slot: Final Diagnosis: Placement Information Referral Type:*Home Health Care Services Referral ID:[id number] Provider Name:[facility] Address 1:[address] [place] [address] Phone Number: Address 2: Fax Number: City:[place] Selection Factors: State:[place] Patient Contact Information Contact Name:ENDERDERRELLBERNY Relationship:Other Address: Work Phone: City:[place] Alternate Phone: [facility] Code:[place] Email: Financial Information Financial Class:Medicare Primary Plan Desc:MEDICARE INPATIENT Primary Plan Number:[id number] Secondary Plan Desc:MEDICA[place] Secondary Plan Number:[id number] Assessment Information [facility] CM Progress Note CM Note CM Note Notes: Pt presented to the ED via EMS after being found down and unresponsive at home. Patient [facility] caregiver through [facility] EMS reported that patient was not wearing her oxygen and there were bottles of narcotics around her. Pt admitted for AMS and hypoxia. Pt recently admitted to [facility] from 08/06-08/07/17 for COPD exacerbation. Pt started to become a little more alert and responsive in the ED but was still unable to say where she was or what had happened. ED Provider spoke with pt's ex- Sedrick Alvashahrzad ([phone]) and he reported patient has a history of opioid dependence and narcotic overdoses. This CM spoke with Sedrick Ramos" ([phone]) who stated "I have three ideas of what is going on: 1st is oxygen issue, 2nd is the OD, and 3rd is she not eating and she is weak." Artie would like to continue to be updated on patient's status. Alva also mentioned that pt's dog, Jackie, is being taking care of by pt's neighbor, Alex Holland. Spoke with MIKEL Tomlin at [facility] ([phone]). Sada states they provide medication management. Sada states patient was last seen on Thu09/09/17 and that pt's wire basket maker Dr Lake at [facility] ([phone]) was hoping to transition patient off morphine and recommended patient use her PRN Percocet for pain control. Sada also mentioned that the patient had an old bottle of Dilaudid in her apt but that the pt was instructed to not use it. Sada mentioned she has been concerned about patient's cognitive functioning and she thinks patient should "live in a facility with higher level of monitoring," but patient always refuses SNF. This CM requested Sada to fax their current list of the pt's medications to the ED Fax but it was never received. Patient also receives daily visits and HCBS non-skilled homemaking and personal care services through [facility] ([phone]). Spoke with staff who said their med care manager Shruthi ([phone]) was going to be coming to the hospital to visit patient. This CM called and left a voicemail with pt's [facility] Salt Washer, Rae Jean-Baptiste ([phone]); but have not heard back. Anticipate PT/OT/EYEGLASS CUTTER evals and if patient recovers well, patient will return home with HC (skilled and non-skilled). CM to follow. Date Signed: 09/14/2017 06:44 PM Electronically Signed By:Irena So RN BORISE LACE Acuity / Level of Answers: Yes Care: Did the patient have an inpatient admission? Comorbidities - select Answers: Chronic pulmonary disease all that apply History of falls Opioid dependence / Chronic pain # of Emergency department Answers: 5-8 visits in the last 6 months Social determinants Answers: History of substance abuse (ETOH, street drugs, prescription drugs, etc.) Score: 19 Date Signed: 09/14/2017 06:49 PM Electronically Signed By:Irena So RN [facility] Progress Note CM Note CM Note Notes: Met with patient today who states she does not want to go to SNF rehab. She has tried it in the past and does not like it. Patient wants to return home with the support of HCBS services which helps her with chores, personal hygiene, housework, grocery shopping. She has had [facility] and states they can do her nursing or any PT/OT she might need. Left a message for Sada with [facility] ([phone]) [facility]. There is a prior notation from Irena Barkley stating Sada thinks patient needs a higher level of care but Sada also notes patient has always refused this option. Awaiting Sada's return call to get more detail about the bottles of narcotics found around patient when she was unresponsive at home. Currently, the D/C plan is home with home health and HCBS services when patient is medically stable. Patient did state she was very distressed she cannot remember what happened and feels she lost the whole day yesterday. CM will follow. Date Signed: 09/15/2017 03:28 PM Electronically Signed By:Hodan Guillen LCSW [facility] Progress Note CM Note CM Note Notes: Spoke with Rae at [facility] regarding number of hours pt is eligible for services through Medicaid HCBS. Pt is maxed out on the number of hours she can receive for non-skilled care. We discussed the possiblity of pt's appropriateness for Medicaid in-home support services. This program could potentially provide up to 16 hours a day.Pt would need to be assessed and then a care plan is written. Also spoke with Shruthi, the med care manager of [facility], who provides some of pt's non-skilled HCBS care. She said in the past pt has been resistant to new caregivers from [place] and wants Shruthi to be there "often." If pt is approved for the in-home support services, she would have to accept other CGs than just the two she is accustomed to. Pt is in denial regarding the possibilty she may have taken too much of her pain medication. She was surprised when informed she has had 12 ED visits in the past year and knows something needs to change. She is agreeable to having increased support in the home and understands she will need to accept other CGs if the program is approved. She was appreciative of the possibility of more care as she wants to stay in her home. She would like to d/c home tomorrow if medically cleared. A referral was sent to [facility] - she is current with them for RN but would also need PT/OT at this time. Date Signed: 09/16/2017 03:05 PM Electronically Signed By:CORI Ghotra Case Management Discharge Plan Note Case Management Discharge Discharge Order Complete? Answers: Yes Patient to Obtain Answers: via Family Medications Transportation Arranged Answers: Other Notes: [facility] will either bring wheelchair or stretcher - issue is 19 stairs Faxed Final Orders Answers: Yes Agency/Facility Transfer Answers: Yes Report Printed & Faxed to Receiving Agency Discharge Comments Notes: Pt. to d/c today with [facility] - RN, PT, OT, and DESIGNER/WRITER. [facility] confirms they can provide all services. SWer reminded them of Pt's Medicare benefit. Met w/ Pt. in her room twice. Confirmed Pt's address. Pt. has already called [facility] to begin her caregivers. All d/c paperwork sent to [facility] via [employer]. Verified received by [facility]. Pt requires [facility] transport home due to her having 19 steps up to her apartment and Pt. in a weakened condition. [facility] to utilize Medicaid benefit for transport. Spoke w/ Mony at [facility]. Date Signed: 09/17/2017 11:51 AM Electronically Signed By:Irena Chavis LCSW Intervention Information Intervention Type:Post Acute Communication Date of Service:09/14/2017 06:49 PM Patient Type:Observation Staff Member:MIKEL So, Irena Hours:0.75 Discipline:Salt Washer Severity: Comment:Spoke with [facility], [facility], and pt's ex-.
[2017-09-17] MEDS ORDERED: morphINE SR 15 MG TAB PO SCH (21:00)
== END 2017-09-17 13:05 | disposition home health service (06) | DRG 92 ==
LOC: EDUNIT# → INTOOBSV 15:42 → OBSVTOIN 15:42 → F3E 16:28
PROVIDERS: ADMIT Internal Medicine; ATTEND Internal Medicine
DX: G92 Toxic encephalopathy (principal); J44.9 Chronic obstructive pulmonary disease, unspecified; J96.10 Chronic respiratory failure, unspecified whether with hypoxia or hypercapnia; L89.159 Pressure ulcer of sacral region, unspecified stage; K59.00 Constipation, unspecified; F55.2 Abuse of laxatives; G89.29 Other chronic pain; T84.50XD Infection and inflammatory reaction due to unspecified internal joint prosthesis, subsequent encounter; I44.2 Atrioventricular block, complete; Z95.0 Presence of cardiac pacemaker; Z87.891 Personal history of nicotine dependence; Z79.2 Long term (current) use of antibiotics; Z99.81 Dependence on supplemental oxygen
CPT/HCPCS: 82947-QW; 92523-GN; 97116-GP; 97161-GP; 97166-GO; 97530-GO; 97535-GO; G0378; G8978-GP-CI; G8978-GP-CJ; G8979-GP-CI; G8980-GP-CI; G8987-GO-CJ; G8987-GO-CL; G8988-GO-CJ; G8989-GO-CJ; G9165-GN-CH; G9166-GN-CH; G9167-GN-CH; J1170; J1650; J1885; J2405; J7512

== ENCOUNTER 2017-12-24 18:47 | Observation (INO) | payer OTHER, MEDICAID ==
[2017-12-24] MEDS ORDERED: NS 500 ML IV ONE (18:48)
[2017-12-24 19:01] LABS: PLATELET COUNT 287 10^3/uL (150-400)
--- NOTE | 2017-12-24 19:35 | CPEKG ---
Heart Rate: 76 RR Interval: 789 P-R Interval: 192 QRSD Interval: 140 QT Interval: 420 QTC Interval: 473 P [place]: -9 QRS [place]: 31 T Wave [place]: -5 EKG Severity - ABNORMAL ECG - EKG Impression: SINUS RHYTHM EKG Impression: RIGHT BUNDLE BRANCH BLOCK Electronically Signed By: Richar Sultana 24-Dec-2017 21:08:22
--- NOTE | 2017-12-24 19:42 | EDPHY ---
H & P Smoking Status: Former smoker Time Seen by Provider: 12/24/17 18:48 HPI/ROS: HPI Fell at home. Head injury. 82-year-old female by ambulance. She presented as a limited +trauma. The patient was at home where she lives alone. She has a dog. She reports that she was picking up a pad that her dog sleeps on. She reports that she thinks she became dizzy/lightheaded suddenly, fell forward and struck her head on the side of the plantar. She reports that she then fell to the ground. She points presents with complaint of forehead pain and a contusion. She also complains of some right-sided neck pain. She denies loss of consciousness. She denies any associated chest pain. No palpitations. She denies any extremity pain. No loss of sensation or weakness in her extremities. She denies any associated palpitations, chest pain, shortness of breath, sudden onset headache prior to this event. ROS: Constitutional: No fever, no chills. As above. Eyes: No discharge. No changes in vision. ENT: No sore throat. No nasal congestion or rhinorrhea. Respiratory: No cough. No shortness of breath. Cardiac: No chest pain, no palpitations. Gastrointestinal: No abdominal pain, no vomiting, no diarrhea. Genitourinary: No hematuria. No dysuria or increased frequency with urination. Musculoskeletal: No back pain. As above. Skin: No rashes. Contusion of forehead. No lacerations. Neurological: Right frontal forehead headache. No focal weakness or altered sensation. Past medical history: Appendectomy, hypothyroid, arthritis, COPD, bilateral hip replacements, prolapse bladder, kidney stones, spinal stenosis, chronic pain , narcotic dependent, scoliosis, pacemaker, T9 compression fracture, kyphoplasty , bilateral cataract surgery. Social history: She currently lives alone. EMS reports that her apartment was messy. She has a dog. Nonsmoker. She denies alcohol. Physical Exam: General Appearance: Alert, no distress, mildly anxious. This patient is responding to questions appropriately and in full sentences. This patient appears well-hydrated and well-nourished. Head: Normocephalic atraumatic except for a right-sided forehead contusion. No bony step-off or deformity noted on palpation of this area. Face: Facial bones are stable on palpation. Eyes: Pupils equal and round and reactive to light, no pallor or injection. No lid erythema or edema. ENT, Mouth: Mucous membranes moist. Dentition is intact. No malocclusion of the jaw. No tongue lacerations or abrasions. Pharynx is clear. The bilateral nasal canals are clear. No septal hematoma. Respiratory: There are no retractions, lungs are clear to auscultation with good air movement bilaterally. Chest wall is stable to AP and lateral palpation. Cardiovascular: Regular rate and rhythm. No murmur. Gastrointestinal: Abdomen is soft and nontender, no masses, bowel sounds normal. Neurological: Motor sensory function is intact. Cranial nerves are normal. Cerebellar function intact. Skin: Warm and dry, no rashes. No lacerations, abrasions or contusions. Musculoskeletal: Neck is supple. She does have some right paraspinal tenderness at the level of C5 through C6. The trachea is midline. No midline cervical, thoracic, lumbar or sacral tenderness on palpation. No flank tenderness on palpation. Extremities are symmetrical, full range of motion. All joints in the bilateral upper and bilateral lower extremities range without pain or impingement. No tenderness on palpation of the long bones in the bilateral upper and bilateral lower extremities. Psychiatric: No agitation. No depression. Database: EKG: EKG time is 733 p.m.; EKG shows a narrow complex normal sinus rhythm with a ventricular rate of 76. Right bundle branch block noted. The AR, QT intervals are within normal limits. There are no ST-T wave changes indicative of ischemic or injury pattern. No evidence of right heart strain. No evidence of WPW, Brugada syndrome, hypertrophic cardiomyopathy. Interpreted by me. Imaging: CT scan of head without contrast: Right forehead contusion noted. Otherwise negative study. Age-related changes only. Results were discussed with staff radiologist Dr. Pierce Talamantes. CT scan of cervical spine without contrast: Age-related changes only. No evidence of fracture, subluxation, dislocation. Results were discussed with staff radiologist Dr. Pierce Talamantes. Procedures: Emergency department course: IV was placed. EKG obtained. Vital signs reviewed. She is moderately hypertensive. Vital signs otherwise normal. She was placed in a cervical collar. She was started on IV normal saline with 500 cc to be given over 1 hr. EKG obtained and reviewed by myself. She was sent for CT imaging as above. 7:50 p.m., patient was re-evaluated. Her cervical collar was clinically and radiographically cleared by myself. At this time she states that she is feeling better. She still complains of a mild right frontal headache. I discussed the results of her diagnostic workup in the emergency department. I recommended admission for observation overnight. She agrees with this. Hospitalist pagekatheryn. 8:05 p.m., spoke with on-call hospitalist Dr. Garcia. Case discussed in detail with her. She accepts this patient for admission to telemetry observation. Surfacing Machine Operator will investigate the patient's house and living arrangement. The patient's remaining emergency department course under my care has been uneventful. Patient was admitted to the hospitalist service in stable condition. Trauma surgery, Dr. Kg Easley, has been contacted to consult on this patient regarding any further trauma issues. Differential Diagnosis: The differential diagnosis on this patient includes but is not limited to mechanical fall, head injury, near syncope. Traumatic brain injury, skull fracture, cervical spine fracture, extremity injury, other significant traumatic injury arrhythmia unlikely. This represents a partial list of diagnoses considered. These considerations are based on history, physical exam , past history, reassessment and diagnostic testing. (Richar Sultana) Constitutional: Initial Vital Signs Temperature (C) 36.7 C 12/24/17 18:59 Heart Rate 90 12/24/17 18:59 Respiratory Rate 16 12/24/17 18:59 Blood Pressure 146/80 H 12/24/17 18:59 O2 Sat (%) 100 12/24/17 18:59 O2 Delivery Mode Nasal Cannula O2 (L/minute) 3 Allergies/Adverse Reactions: duloxetine HCl [From Cymbalta] Allergy (Severe, Verified 12/24/17 19:01) Vomiting Iodinated Contrast- Oral and IV Dye Allergy (Severe, Verified 12/24/17 19:01) Other-Enter Comments aspirin Allergy (Intermediate, Verified 12/24/17 19:01) stomach pain cephalexin monohydrate [From Keflex] Allergy (Intermediate, Verified 12/24/17 19 :01) Stomach Pain codeine [Codeine] Allergy (Intermediate, Verified 12/24/17 19:01) Nausea Vomiting hydrocodone bitartrate [From Vicodin] Allergy (Intermediate, Verified 12/24/17 19:01) Nausea Vomiting orphenadrine Allergy (Intermediate, Verified 12/24/17 19:01) Stomach pain tetracycline [Tetracycline] Allergy (Intermediate, Verified 12/24/17 19:01) Stomach Pain celecoxib Allergy (Unknown, Verified 12/24/17 19:) Weight gain, Fatigue, Increased Pain ciprofloxacin Allergy (Unknown, Verified 12/24/17 19:01) clarithromycin Allergy (Unknown, Verified 12/24/17 19:) Stomach Pain levofloxacin Allergy (Unknown, Verified 12/24/17 19:) Swelling/neck,face,throat linezolid Allergy (Unknown, Verified 12/24/17 19:01) sulfamethoxazole Allergy (Unknown, Verified 12/24/17 19:) Nausea Vomiting amoxicillin trihydrate [From Augmentin] Allergy (Verified 12/24/17 19:) potassium clavulanate [From Augmentin] Allergy (Verified 12/24/17 19:) shrimp Allergy (Verified 12/24/17 19:) ORPHENGESIC Allergy (Intermediate, Uncoded 12/24/17 19:) Stomach Pain Terpin hydrate Allergy (Intermediate, Uncoded 12/24/17 19:) Stomach pain amoxicillin trihydrate Allergy (Unknown, Uncoded 12/24/17 19:) cephalexin monohydrate Allergy (Unknown, Uncoded 12/24/17 19:) Stomach Pain duloxetine HCl Allergy (Unknown, Uncoded 12/24/17 19:01) Vomiting hydrocodone bitartrate Allergy (Unknown, Uncoded 12/24/17 19:01) Nausea Vomiting potassium clavulanate Allergy (Unknown, Uncoded 12/24/17 19:01) Home Medications: Medication Instructions Recorded Ascorbic Acid [Vitamin C 500 mg 1,000 mg PO BIDMEAL 08/26/13 (*)] Calcium Carbonate [Tums 500MG (*)] 1,000 mg PO DAILY PRN 08/26/13 Sennosides [Senokot] 3 each PO HS 08/26/13 buPROPion XL [Wellbutrin 150mg XL] 300 mg PO DAILY 03/29/16 diphenhydrAMINE [Benadryl 25 MG 25 mg PO HS 05/17/16 (*)] Gabapentin [Neurontin 300 MG (*)] 600 mg PO BID 07/20/16 Cholecalciferol Vit D3 [Vitamin D3 1,000 units PO BID 08/11/16 (*)] Ipratropium/Albuterol [Duoneb (*)] 3 ml IH QID PRN 08/11/16 Levothyroxine [Synthroid 50 mcg 50 mcg PO DAILY06 09/24/16 (*)] oxyCODONE/APAP 5/325 [Percocet 1 tab PO Q4HRS PRN 11/22/16 5/325 (*)] Pantoprazole Sodium [Protonix 40mg 40 mg PO DAILY tab 11/28/16 (*)] Fluticasone/Salmeter 500/50Mcg 1 puffs IH BID 02/17/17 [Advair 500/50 (*)] Doxycycline Hyclate [Vibramycin 100 mg PO DAILY 04/09/17 100 MG (*)] Dicyclomine [Bentyl 20 MG (*)] 20 mg PO QID MDD SPASM 08/06/17 Ondansetron Odt [Zofran Odt 4 mg 4 mg PO Q6 PRN 09/14/17 (*)] Lidocaine 4%/Menthol 1% [Icy Hot 1 patch TD DAILY #30 patch 09/17/17 Lidocaine/Menthol 4%/1% Patch (*)] Albuterol Sulfate [ALBUTEROL 1.25 mg IH PRN PRN 12/24/17 SULFATE 1.25 MG/3 ML] Albuterol [Proventil Inhaler HFA 1 - 2 puffs IH Q4H PRN 12/24/17 (*)] morphINE SR [Ms Contin/Oramorph 15 15 mg PO BID #0 12/25/17 mg (*)] Medical Decision Making Other Provider: Patient's pacemaker was interrogated without evidence of any obvious arrhythmia or explanation for syncope. (Salvatore Reza) - Data Points Laboratory Results: Laboratory Results 12/24/17 18:48 12/24/17 18:48 Medications Given: Acetaminophen (Tylenol) 650 mg PO Q4HRS PRN PRN Reason: Pain, Mild/Fever, Can Take PO Stop: 06/22/18 20:07 Last Admin: 12/25/17 05:39 Dose: 650 mg Albuterol/Ipratropium (Duoneb) 3 ml IH QID TAVIA Stop: 06/23/18 11:59 Last Admin: 12/25/17 11:33 Dose: 3 ml Bupropion HCl (Wellbutrin Xl) 300 mg PO DAILY TAVIA Stop: 06/23/18 08:59 Last Admin: 12/25/17 09:38 Dose: 300 mg Dicyclomine HCl (Bentyl) 20 mg PO QID TAVIA Stop: 06/23/18 11:59 Last Admin: 12/25/17 11:58 Dose: 20 mg Doxycycline Hyclate (Doxycycline Hyclate) 100 mg PO DAILY TAVIA PRN Reason: Protocol Stop: 01/24/18 08:59 Last Admin: 12/25/17 09:38 Dose: 100 mg Gabapentin (Neurontin) 300 mg PO BID TAVIA Stop: 06/23/18 08:59 Last Admin: 12/25/17 09:38 Dose: 300 mg Levothyroxine Sodium (Synthroid) 50 mcg PO DAILY06 TAVIA Stop: 06/23/18 08:59 Last Admin: 12/25/17 09:40 Dose: 50 mcg Miscellaneous Medication (Icy Hot Lidocaine/Menthol 4%/1% Patch) 1 patch TD DAILY TAVIA Stop: 06/23/18 08:59 Last Admin: 12/25/17 10:45 Dose: 1 patch Morphine Sulfate (Ms Contin/Oramorph) 15 mg PO TID TAVIA Stop: 01/04/18 08:59 Last Admin: 12/25/17 09:38 Dose: 15 mg Ondansetron HCl (Zofran Odt) 4 mg PO Q4HRS PRN PRN Reason: Nausea/Vomiting, Use 1st Stop: 06/22/18 20:07 Last Admin: 12/25/17 09:43 Dose: 4 mg Pantoprazole Sodium (Protonix) 40 mg PO DAILY TAVIA Stop: 06/23/18 08:59 Last Admin: 12/25/17 09:38 Dose: 40 mg Fluticasone/Salmeterol (Advair) 1 puffs IH BID [facility] Stop: 06/23/18 08:59 Last Admin: 12/25/17 11:33 Dose: 1 puffs Discontinued Medications Sodium Chloride (Ns) 500 mls @ 0 mls/hr IV ONCE ONE; Wide Open PRN Reason: Protocol Stop: 12/24/17 18:49 Last Admin: 12/24/17 19:22 Dose: 500 mls Ibuprofen (Motrin) 400 mg PO EDNOW ONE Stop: 12/24/17 21:01 Last Admin: 12/24/17 21:06 Dose: 400 mg Oxycodone/Acetaminophen (Percocet 5/325) 1 tab PO EDNOW ONE Stop: 12/24/17 21:01 Last Admin: 12/24/17 21:06 Dose: 1 tab Oxycodone/Acetaminophen (Percocet 5/325) 1 tab PO ONCE ONE Stop: 12/24/17 23:44 Last Admin: 12/25/17 00:45 Dose: 1 tab Departure - Departure Disposition: [facility] Inpatient Acute Clinical Impression: Fall from ground level, Forehead contusion, Syncope Condition: Good
[2017-12-24] MEDS ORDERED: ONDANSETRON 4 MG/2 ML VIAL IVP PRN (20:08)
[2017-12-24] MEDS ORDERED: ACETAMINOPHEN 325 MG TAB PO PRN (20:08)
[2017-12-24] MEDS ORDERED: OXYCODONE/APAP 5/325 TAB PO ONE ×2 (21:00→23:43)
[2017-12-24] MEDS ORDERED: IBUPROFEN 200 MG TAB PO ONE ×2 (21:00→21:04)
[2017-12-24] MEDS ORDERED: OXYCODONE/APAP 5/325 TAB ONE (21:04)
--- NOTE | 2017-12-24 21:20 | GHP ---
[f rep st] HISTORY AND PHYSICAL DATE OF ADMISSION: 12/24/2017 CHIEF COMPLAINT: Fall. HISTORY OF PRESENT ILLNESS: An 82-year-old female with multiple comorbidities, including hypothyroidism, COPD, chronic hypoxemic respiratory failure, pacemaker , brought in by EMS. She was at home where she lives alone. She was bending over to clean dog poop off the rug and felt dizzy and fell over, hitting a wrought iron plantar. She felt mild dizziness, but no other prodrome or symptoms. She did not lose consciousness. Denies chest pain, shortness of breath. She has not been hungry lately, so not eating, but has been drinking some water. She has chronic nausea secondary to doxycycline, but no vomiting or diarrhea. Takes MS Contin and Percocet and did feel kind of groggy to due to the Percocet today. Denies dysuria, urinary frequency or urgency. Per EMS, the house was very disheveled. 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 Narcotic dependency, scoliosis , T9 compression fracture, kyphoplasty, prolapsed bladder. PAST SURGICAL HISTORY: Six or 7 hip surgeries, perforated ulcer in the past. FAMILY HISTORY: Noncontributory. SOCIAL HISTORY: Lives in apartment here in [place] by herself. Denies alcohol , tobacco, or illicits. Uses a cane. HOME MEDICATIONS: 1. Prednisone 10 mg daily. 2. Percocet 5/325 twice daily. 3. MS Contin 15 mg twice daily. 4. Benadryl as needed. 5. Wellbutrin 350 mg daily. 6. Senna. 7. Protonix 40 mg daily. 8. Zofran as needed. 9. Lidocaine patch. 10. Levothyroxine 50 mcg daily. 11. DuoNeb. 12. Motrin. 13. Gabapentin 600 mg twice daily. 14. Advair 1 puff twice daily. 15. Doxycycline 100 mg daily. 16. Bentyl 20 mg four times daily. 17. Vitamin D3. 18. Calcium carbonate. 19. Vitamin C. 20. Alendronate. ALLERGIES: Please see [facility]. Multiple allergies. PHYSICAL EXAMINATION: VITAL SIGNS: Temperature 36.7, blood pressure 146/80, heart rate 90s, respirations, 100% on 3 L. GENERAL: She is frail. HEENT: Has a contusion over right forehead. PERRLA. Dry mucous membranes. Oropharynx clear. CV is distant, regular. LUNGS: Diminished throughout but no wheezes. ABDOMEN: Soft, nontender, nondistended. Positive bowel sounds. : No [place], no suprapubic tenderness. MUSCULOSKELETAL: Moving all 4 extremities. NEUROLOGIC: 2 through 12 intact. PSYCH: Alert and oriented x3. SKIN: Poor skin turgor. Ecchymoses over lower extremities. LAB: CBC 9, hemoglobin 12, hematocrit 39, platelets 287. Sodium 134, potassium 4, chloride 98, carbon dioxide 31, anion gap 5, creatinine 0.7. UA + 2 leukocytes, 10-[address] cervical spine negative for fracture. Query muscle spasm. Head CT, no intracranial hemorrhage. Right bundle branch block seen on prior. ASSESSMENT AND PLAN: 1. Presyncope vs syncope: she denies loss of consciousness.No evidence of arrhythmia here. Check a troponin. TSH low in September, will repeat. Drug and ethanol screen pending. 2. Right bundle branch seen on prior EKG. Will have pacemaker interrogated. 3. Does look dry. Will give fluids. 4. Suspect pain medications are contributing. UA with some whites, but she is asymptomatic. We will hold off on antibiotics until culture back. 5. Fall: Dr. Cruz will be consulted from the emergency room. CT head and cervical spine negative. Physical therapy/occupational therapy. 6. Hypothyroidism, levothyroxine. 7. Depression, Wellbutrin. 8. History of pacemaker. 9. Obstructive sleep apnea. 10. Chronic obstructive pulmonary disease on chronic oxygen. Continue inhalers , DuoNebs, on chronic steroids. 11. History of left hip prosthetic infection. Continue suppressive antibiotics. 12. Mild hypovolemic hyponatremia. Give gentle IV fluids. 13. Diet: Regular. 14. Deep venous thrombosis prophylaxis. 15. Sequential compression devices. DISPOSITION: Patient warrants inpatient admission given possible syncope requiring telemetry, troponin, IV fluids also Case Management. /[id number]/MODL MTDD
--- NOTE | 2017-12-24 21:50 | GCON ---
[f rep st] CONSULTATION REASON FOR CONSULTATION: This patient was a limited trauma plus admission. I was asked to see her a nd evaluate the care. Tahira Machuca is an 82-year-old female who was walking around her dining room table. She states that she was picking up a pad that her dog sleeps on. She thinks she may have been lightheaded and dizzy. She felt herself falling. She fell forward and struck her head on a metal trellis holding khalil. She is not on any anticoagulants. She was brought to the emergency room and evaluated by Richar Gama DO. A CT of the head was negative for intracranial hemorrhage. There is an elderly brain with atrophy and probable white matter small-vessel disease. A CT of her neck was negative for frac ture. There are multiple-level degenerative changes. On meeting the patient she is awake, alert. G CS of 15. No focal lateralizing neurologic findings. She does have a contusion on her right forehea d. She has been offered observation overnight by the medicine service and I think it is quite approp riate. I think there is nothing further to add from the trauma service standpoint. /[id number]/MODL
[2017-12-25] MEDS ORDERED: IBUPROFEN 200 MG TAB PO PRN (08:55)
[2017-12-25] MEDS ORDERED: OXYCODONE/APAP 5/325 TAB PO PRN (08:55)
[2017-12-25] MEDS ORDERED: LEVOTHYROXINE 50 MCG TAB PO SCH (09:00)
[2017-12-25] MEDS ORDERED: DOXYCYCLINE HYCLATE 100 MG CAP/TAB PO SCH (09:00)
[2017-12-25] MEDS ORDERED: LIDOCAINE 4%/MENTHOL 1% PATCH TD SCH (09:00)
[2017-12-25] MEDS ORDERED: FLUTICASONE/SALMETER 500/50MCG DISKUS IH SCH (09:00)
[2017-12-25] MEDS ORDERED: PANTOPRAZOLE SODIUM 40 MG TAB PO SCH (09:00)
[2017-12-25] MEDS ORDERED: buPROPion XL 150 MG TAB PO SCH (09:00)
[2017-12-25] MEDS ORDERED: GABAPENTIN 300 MG CAP PO SCH (09:00)
[2017-12-25] MEDS ORDERED: ALBUTEROL 3 ML DEYVIAL IH PRN (09:15)
[2017-12-25] MEDS: morphINE SR 15 MG TAB PO SCH ×2 (09:38→15:28)
[2017-12-25] MEDS: ONDANSETRON DISINTEGRATING 4 MG TAB PO PRN ×2 (09:43→15:33)
--- NOTE | 2017-12-25 10:43 | ASMTLACE ---
LACE Length of stay for Answers: Less than 1 day current admission Acuity / Level of Answers: Yes Care: Did the patient have an inpatient admission? Comorbidities - select Answers: Chronic pulmonary disease all that apply Opioid dependence / Chronic pain Other Notes: Hypothyroid; Spinal stenosis; Pacemaker # of Emergency department Answers: 3-4 visits in the last 6 months Social determinants Answers: Mental health diagnosis (anxiety, depression, pers onality disorders, etc.) Score: 16 Date Signed: 12/25/2017 10:43 AM Electronically Signed By:Flor Candelaria RN
--- NOTE | 2017-12-25 10:52 | WOCRNPDOC ---
WOCRN Advanced Assessment Note - Skin Integrity Problem, Advanced Assess Coccyx Pressure Injury Dressing Type: Mepilex Border Dressing Description: Clean/Dry, Intact Exudate Amount: None Integumentary Issue Intervention: Visualized Under Dressing Chandrika Wound Tissue: Blanching, Erythema Chandrika Wound Swelling: None Skin Integrity Problem Comment: No pressure injury at this time. Dawna MORIN notified to impliment skin tear protocol for left wrist. Wound care will sign off. Please re-consult PRN.
[2017-12-25] MEDS: DICYCLOMINE 20 MG TAB PO SCH ×2 (11:58→15:27)
[2017-12-25] MEDS ORDERED: IPRATROPIUM/ALBUTEROL 3 ML DEYVIAL IH SCH (12:00)
--- NOTE | 2017-12-25 12:31 | PDIAF ---
- Diagnosis Diagnosis: chronic pain, fall Code Status: Full Code - Medication Management Discharge Medications: Medications to Continue on Transfer Ascorbic Acid [Vitamin C 500 mg (*)] 1,000 mg PO BIDMEAL 08/26/13 [Last Taken ] Calcium Carbonate [Tums 500MG (*)] 1,000 mg PO DAILY PRN 08/26/13 [Last Taken ] Sennosides [Senokot] 3 each PO HS 08/26/13 [Last Taken 12/23/17] buPROPion XL [Wellbutrin 150mg XL] 300 mg PO DAILY 03/29/16 [Last Taken 12/24/17 ] diphenhydrAMINE [Benadryl 25 MG (*)] 25 mg PO HS 05/17/16 [Last Taken 12/23/17] Gabapentin [Neurontin 300 MG (*)] 600 mg PO BID 07/20/16 [Last Taken 12/24/17] Cholecalciferol Vit D3 [Vitamin D3 (*)] 1,000 units PO BID 08/11/16 [Last Taken 12/24/17] Ipratropium/Albuterol [Duoneb (*)] 3 ml IH QID PRN 08/11/16 [Last Taken 11/21/16 ] Levothyroxine [Synthroid 50 mcg (*)] 50 mcg PO DAILY06 09/24/16 [Last Taken 06/01] oxyCODONE/APAP 5/325 [Percocet 5/325 (*)] 1 tab PO Q4HRS PRN 11/22/16 [Last Taken 12/23/17] Pantoprazole Sodium [Protonix 40mg (*)] 40 mg PO DAILY tab 11/28/16 [Last Taken 12/24/17] Fluticasone/Salmeter 500/50Mcg [Advair 500/50 (*)] 1 puffs IH BID 02/17/17 [ Last Taken 12/24/17] Doxycycline Hyclate [Vibramycin 100 MG (*)] 100 mg PO DAILY 04/09/17 [Last Taken 12/24/17] Dicyclomine [Bentyl 20 MG (*)] 20 mg PO QID MDD SPASM 08/06/17 [Last Taken 12/23] Ondansetron Odt [Zofran Odt 4 mg (*)] 4 mg PO Q6 PRN 09/14/17 [Last Taken ] Lidocaine 4%/Menthol 1% [Icy Hot Lidocaine/Menthol 4%/1% Patch (*)] 1 patch TD DAILY #30 patch 09/17/17 [Last Taken Unknown] Albuterol Sulfate [ALBUTEROL SULFATE 1.25 MG/3 ML] 1.25 mg IH PRN PRN 12/24/17 [ Last Taken Unknown] Albuterol [Proventil Inhaler HFA (*)] 1 - 2 puffs IH Q4H PRN 12/24/17 [Last Taken Unknown] morphINE SR [Ms Contin/Oramorph 15 mg (*)] 15 mg PO BID #0 12/25/17 [Last Taken 12/23/17] Discharge Medications: Refer to the Discharge Home Medication list for PRN reason. PICC Care - Routine: N/A - Orders Services needed: Home Care, Registered Nurse, Physical Therapy, Occupational Therapy Home Care Face to Face: I certify that this patient was under my care and that I had the required [id number] encounter meeting the encounter requirements on the discharge day. My findings support the fact that the patient is homebound as defined in Home Care Face to Face Continued: CMS Chapter 7 Medicare Benefits Manual 30.1.1 , The condition of the patient is such that there exists a normal inability to leave home and consequently, leaving home would require a considerable and taxing effort. Isolation Type: None Diet Recommendation: no restrictions on diet Additional Instructions: Decrease your MS Contin to 15 mg twice daily. Close follow up with Dr. Reyes. - Follow Up Care Current Providers and Referrals: Gutierrez Reyes MD [Primary Care Provider] -
[2017-12-25 12:40] VITALS: BP 137/62
--- NOTE | 2017-12-25 13:04 | ASMTCMCOM ---
DAVE Note CM Note Notes: Pt admitted after a fall in her apt. She lives alone in [place] and has 19 steps to get up to her place, she will need [facility] transport home. She is well supported with resources, she is current with [facility] (RN for medication mangement), [facility] [phone] (non skilled, they come 7days/week), and a manager of case management at [facility] ([place], ) DAVE discussed plan with , will likely dc back home today. DAVE spoke with her caregiver Shruthi ([phone]) who can meet her at her apt at 6pm this evening. DC Plan: Home w/current supports in place. Date Signed: 12/25/2017 10:35 AM Electronically Signed By:Flor Candelaria RN
--- NOTE | 2017-12-25 13:07 | ASMTDCNOTE ---
Case Management Discharge Discharge Order Complete? Answers: Yes Patient to Obtain Answers: Other Notes: Home care Medications Transportation Arranged Answers: [facility] will Pick (Date 12/25/2017 04:00 PM & Time) Case Management Transport Answers: Yes Form Complete Faxed Final Orders Answers: Yes Agency/Facility Transfer Answers: Yes Report Printed & Faxed to Receiving Agency Discharge Comments Notes: D/w MD, final orders faxed. Caregiver, Shruthi notifed and will meet pt at her home at 6pm, [facility] also notified, and her [facility] [place]. Date Signed: 12/25/2017 01:06 PM Electronically Signed By:Flor Candelaria RN
--- NOTE | 2017-12-25 17:08 | ASDISCHSUM ---
Discharge Information Plan Status:Home with Home Health Medically Cleared to Leave: Discharge Date:12/25/2017 04:01 PM D/C Disposition:Home Health Service ADT D/C Disposition:Home, Routine, Self-Care Projected Discharge Date:12/25/2017 11:00 AM Transportation at D/C:ALS/BLS Discharge Delay Reason: Follow-Up Date:12/25/2017 11:00 AM Discharge Slot: Final Diagnosis: Placement Information Referral Type:*Home Health Care Services Referral ID:[id number] Provider Name:[facility] Address 1:[address] Phone Number: Address 2: Fax Number: City:[place] Selection Factors: State:[place] Patient Contact Information Contact Name:RAFATEMMANUELBERNY Relationship:Other Address: Work Phone: City:[place] Alternate Phone: [facility] Code:[place] Email: Financial Information Financial Class:Medicare Primary Plan Desc:MEDICARE INPATIENT Primary Plan Number:[id number] Secondary Plan Desc[place] Secondary Plan Number:[id number] Assessment Information LACE LACE Length of stay for Answers: Less than 1 day current admission Acuity / Level of Answers: Yes Care: Did the patient have an inpatient admission? Comorbidities - select Answers: Chronic pulmonary disease all that apply Opioid dependence / Chronic pain Other Notes: Hypothyroid; Spinal stenosis; Pacemaker # of Emergency department Answers: 3-4 visits in the last 6 months Social determinants Answers: Mental health diagnosis (anxiety, depression, pers onality disorders, etc.) Score: 16 Date Signed: 12/25/2017 10:43 AM Electronically Signed By:Flor Candelaria RN [facility] CM Progress Note CM Note CM Note Notes: Pt admitted after a fall in her apt. She lives alone in [place] and has 19 steps to get up to her place, she will need [facility]/Medicaid transport home. She is well supported with resources, she is current with [facility] (RN for medication mangement), [facility] [phone] (non skilled, they come 7days/week), and a counter caser at [facility] ([place], ) CM discussed plan with MD, will likely dc back home today. CM spoke with her caregiver Shruthi ([phone]) who can meet her at her apt at 6pm this evening. DC Plan: Home w/current supports in place. Date Signed: 12/25/2017 10:35 AM Electronically Signed By:Flor Candelaria RN Case Management Discharge Plan Note Case Management Discharge Discharge Order Complete? Answers: Yes Patient to Obtain Answers: Other Notes: Home care Medications Transportation Arranged Answers: [facility] Stretcher Transport will Pick (Date 12/25/2017 04:00 PM & Time) Case Management Transport Answers: Yes Form Complete Faxed Final Orders Answers: Yes Agency/Facility Transfer Answers: Yes Report Printed & Faxed to Receiving Agency Discharge Comments Notes: D/w , final orders faxed. Caregiver, Shruthi notifed and will meet pt at her home at 6pm, [facility] also notified, and her [facility] [place]. Date Signed: 12/25/2017 01:06 PM Electronically Signed By:Flor Candelaria RN Intervention Information
--- NOTE | 2017-12-25 19:42 | GDS ---
[f rep st] DISCHARGE SUMMARY DISCHARGE DIAGNOSES: 1. Mechanical fall. 2. Chronic pain. 3. Chronic continuous opioid dependence. 4. Chronic right bundle branch block. 5. Presence of a pacemaker. 6. Hypothyroidism. 7. Chronic obstructive pulmonary disease. 8. Chronic hypoxemic respiratory failure on home oxygen. CONSULTANTS: Dr. Rolo Easley, trauma surgery. HISTORY: For details please see the history and physical dated December 24, 2017. In brief, Ms Brigette barbosa s an 82-year-old female with a history of chronic pain and chronic hypoxemia secondary to COPD as wel l as chronic opioid use, who presents to the emergency department after mechanical fall. She is admi tted to hospital for further evaluation. HOSPITAL COURSE: Patient admitted to the med/surg unit. Trauma evaluation was performed and no furt her workup was recommended. A CT of her head was negative for intracranial hemorrhage. A CT of her cervical spine was negative for fracture. She does have significant ecchymosis around her right temp oral and periorbital region. Her pacemaker was interrogated and showed no evidence of arrhythmia. T he patient believes that she tripped and fell while bending over to clean up dog poop. She did endor se feeling a bit dizzy. She had no other prodromal symptoms such as heart palpitations. She denied loss of consciousness. It is thought possible that her symptoms could be related to opioid use. She has been on Percocet for many years, but her MS Contin has been a more recent addition. We discusse d decreasing her MS Contin dose from 15 mg three times daily to 15 mg twice daily to which she is agr eeable. She is noted to have pyuria on her urinalysis, though nitrates are negative and she has no u rinary symptoms. Her urine culture is growing a low colony count of gram-negative rods, just 7000. This is not consistent with urinary tract infection. Furthermore, she has been afebrile and her sami l signs have been stable. The patient was evaluated by therapy services and home care is recommended in addition to front wheeled walker as well as a quad cane. The patient has had no further symptoms of concern and wishes to be discharged home. DISPOSITION: Patient is discharged home in stable condition with home health care. DISCHARGE MEDICATIONS: Please see [employer] for completed outpatient medication list. CHANGED MEDICATIONS: 1. Include MS Contin is decreased to 15 mg p.o. twice daily from 15 mg three times daily. 2. She will continue all other outpatient medications as previously prescribed. FOLLOWUP: She is to follow up with her primary care physician Dr. Gutierrez Reyes within the next week . /[id number]/MODL
[2017-12-25] MEDS ORDERED: SENNOSIDES 1 TAB PO SCH (21:00)
[2017-12-25] MEDS ORDERED: PATCH REMOVAL 1 EA PATCH TD SCH (21:00)
== END 2017-12-25 16:01 | disposition home health service (06) ==
LOC: EDUNIT# → F2W 20:07 → INTOOBSV 20:07 → OBSVTOIN 20:07 → F3E 22:00
PROVIDERS: ADMIT Internal Medicine; ATTEND Hospitalist
DX: R55 Syncope and collapse (principal); S00.83XA Contusion of other part of head, initial encounter; G89.29 Other chronic pain; E87.1 Hypo-osmolality and hyponatremia; E86.9 Volume depletion, unspecified; F11.20 Opioid dependence, uncomplicated; R40.2413 Glasgow coma scale score 13-15, at hospital admission; W01.198A Fall on same level from slipping, tripping and stumbling with subsequent striking against other object, initial encounter; Y93.K9 Activity, other involving animal care; Y92.011 Dining room of single-family (private) house as the place of occurrence of the external cause; Y99.8 Other external cause status; I45.10 Unspecified right bundle-branch block; E03.9 Hypothyroidism, unspecified; J44.9 Chronic obstructive pulmonary disease, unspecified; J96.11 Chronic respiratory failure with hypoxia; M48.00 Spinal stenosis, site unspecified; M81.0 Age-related osteoporosis without current pathological fracture; F32.9 Major depressive disorder, single episode, unspecified; G47.33 Obstructive sleep apnea (adult) (pediatric); Z87.891 Personal history of nicotine dependence; Z95.0 Presence of cardiac pacemaker; Z96.643 Presence of artificial hip joint, bilateral; Z99.81 Dependence on supplemental oxygen
CPT/HCPCS: 70450; 72125; 93005; 97116; 97161; 97166; 99285; G8978; G8979; G8987; G8988; G8989; 80305; G0390; G0480

== ENCOUNTER → 2018-04-28 | Outpatient (CLI) | payer OTHER, MEDICAID | LOC: BMCIMAGING 09:58 | PROVIDERS: ATTEND Orthopaedic Surgery | DX: M25.552 Pain in left hip (principal); Z96.642 Presence of left artificial hip joint ==

== ENCOUNTER 2018-08-02 11:03 | Emergency (ER) | payer OTHER, MEDICAID ==
--- NOTE | 2018-08-02 11:08 | EDPHY ---
H & P Time Seen by Provider: 08/02/18 11:07 - Personal History Tetanus Vaccine Date: 2014 - Medical/Surgical History Hx Asthma: Yes Hx Chronic Respiratory Disease: Yes Hx Diabetes: No Hx Cardiac Disease: Yes Hx Renal Disease: No Hx Cirrhosis: No Hx Alcoholism: No Hx HIV/AIDS: No Hx Splenectomy or Spleen Trauma: No Other PMH: appy, hypothyroid, arthritis, copd, tanja hip replacements,HIP REVISION x5 (last October 2016, prolapsed bladder, "kidney stone surgery",. spinal stenosis, chronic pain, PPM, scoliosis, Posterior hip dislocation x3, PACEMAKER. T9 compression fracture with kyphoplasty, Surgery on T9 vertebrae, bilateral cataracts - Social History Smoking Status: Former smoker Constitutional: Initial Vital Signs Temperature (C) 36.7 C 08/02/18 11:10 Heart Rate 73 08/02/18 11:10 Respiratory Rate 16 08/02/18 11:10 Blood Pressure 135/62 H 08/02/18 11:10 O2 Sat (%) 94 08/02/18 11:10 O2 Delivery Mode Nasal Cannula O2 (L/minute) 2 Allergies/Adverse Reactions: duloxetine HCl [From Cymbalta] Allergy (Severe, Verified 12/24/17 19:01) Vomiting Iodinated Contrast- Oral and IV Dye Allergy (Severe, Verified 12/24/17 19:01) Other-Enter Comments aspirin Allergy (Intermediate, Verified 12/24/17 19:01) stomach pain cephalexin monohydrate [From Keflex] Allergy (Intermediate, Verified 12/24/17 19 :01) Stomach Pain codeine [Codeine] Allergy (Intermediate, Verified 12/24/17 19:01) Nausea Vomiting hydrocodone bitartrate [From Vicodin] Allergy (Intermediate, Verified 12/24/17 19:01) Nausea Vomiting orphenadrine Allergy (Intermediate, Verified 12/24/17 19:01) Stomach pain tetracycline [Tetracycline] Allergy (Intermediate, Verified 12/24/17 19:01) Stomach Pain celecoxib Allergy (Unknown, Verified 12/24/17 19:01) Weight gain, Fatigue, Increased Pain ciprofloxacin Allergy (Unknown, Verified 12/24/17 19:01) clarithromycin Allergy (Unknown, Verified 12/24/17 19:01) Stomach Pain levofloxacin Allergy (Unknown, Verified 12/24/17 19:01) Swelling/neck,face,throat linezolid Allergy (Unknown, Verified 12/24/17 19:01) sulfamethoxazole Allergy (Unknown, Verified 12/24/17 19:01) Nausea Vomiting amoxicillin trihydrate [From Augmentin] Allergy (Verified 12/24/17 19:01) potassium clavulanate [From Augmentin] Allergy (Verified 12/24/17 19:01) shrimp Allergy (Verified 12/24/17 19:) ORPHENGESIC Allergy (Intermediate, Uncoded 12/24/17 19:) Stomach Pain Terpin hydrate Allergy (Intermediate, Uncoded 12/24/17 19:01) Stomach pain amoxicillin trihydrate Allergy (Unknown, Uncoded 12/24/17 19:) cephalexin monohydrate Allergy (Unknown, Uncoded 12/24/17 19:) Stomach Pain duloxetine HCl Allergy (Unknown, Uncoded 12/24/17 19:) Vomiting hydrocodone bitartrate Allergy (Unknown, Uncoded 12/24/17 19:) Nausea Vomiting potassium clavulanate Allergy (Unknown, Uncoded 12/24/17 19:01) Home Medications: Medication Instructions Recorded Ascorbic Acid [Vitamin C 500 mg 1,000 mg PO BIDMEAL 08/26/13 (*)] Calcium Carbonate [Tums 500MG (*)] 1,000 mg PO DAILY PRN 08/26/13 Sennosides [Senokot] 3 each PO HS 08/26/13 buPROPion XL [Wellbutrin 150mg XL] 300 mg PO DAILY 03/29/16 diphenhydrAMINE [Benadryl 25 MG 25 mg PO HS 05/17/16 (*)] Gabapentin [Neurontin 300 MG (*)] 600 mg PO BID 07/20/16 Cholecalciferol Vit D3 [Vitamin D3 1,000 units PO BID 08/11/16 (*)] Ipratropium/Albuterol [Duoneb (*)] 3 ml IH QID PRN 08/11/16 Levothyroxine [Synthroid 50 mcg 50 mcg PO DAILY06 09/24/16 (*)] oxyCODONE/APAP 5/325 [Percocet 1 tab PO Q4HRS PRN 11/22/16 5/325 (*)] Pantoprazole Sodium [Protonix 40mg 40 mg PO DAILY tab 11/28/16 (*)] Fluticasone/Salmeter 500/50Mcg 1 puffs IH BID 02/17/17 [Advair 500/50 (*)] Doxycycline Hyclate [Vibramycin 100 mg PO DAILY 04/09/17 100 MG (*)] Dicyclomine [Bentyl 20 MG (*)] 20 mg PO QID MDD SPASM 08/06/17 Ondansetron Odt [Zofran Odt 4 mg 4 mg PO Q6 PRN 09/14/17 (*)] Lidocaine 4%/Menthol 1% [Icy Hot 1 patch TD DAILY #30 patch 09/17/17 Lidocaine/Menthol 4%/1% Patch (*)] Albuterol Sulfate [ALBUTEROL 1.25 mg IH PRN PRN 12/24/17 SULFATE 1.25 MG/3 ML] Albuterol [Proventil Inhaler HFA 1 - 2 puffs IH Q4H PRN 12/24/17 (*)] morphINE SR [Ms Contin/Oramorph 15 15 mg PO BID #0 12/25/17 mg (*)] Medical Decision Making - Diagnostics Imaging Results: Imaging Impressions Hip X-Ray 08/02/18 11:17 Impression: Displacement and rotation of the acetabular component of a left total hip arthroplasty from the surgical bed of the [place] acetabulum, as above. Chest X-Ray 08/02/18 11:56 Impression: No evidence for acute cardiopulmonary abnormality. Stable chronic findings as above. Imaging: I viewed and interpreted images myself ED Course/Re-evaluation: CHIEF COMPLAINT: Back and hip pain HISTORY OF PRESENT ILLNESS: The patient is an 82 y/o female with an extensive medical history including chronic pain, bilateral hip replacement (Callie), and a T9 compression fracture with a kyphoplasty complaining of back and left hip pain. Around two weeks ago she developed hip pain. However, two days ago the hip pain significantly exacerbated. No fever, headache, body aches, lightheadedness, chest pain, heart palpitations, shortness of breath, cough, abdominal pain, urinary or bowel complaints, numbness, paresthesias. REVIEW OF SYSTEMS: A comprehensive 10 system review of systems is otherwise negative aside from elements mentioned in the history of present illness and medical decision making. PHYSICAL EXAM: HR, BP, O2 Sat, RR. Temp noted General Appearance: Alert, well hydrated, appropriate, and non-toxic appearing. Head: Atraumatic without scalp tenderness or obvious injury Eyes: Pupils equal, round, reactive to light and accommodation, EOMI, no trauma , no injection. Ears: Clear bilaterally, no perforation, normal landmarks Nose: Atraumatic, no rhinorrhea, clear. Throat: There is no erythema or exudates, no lesions, normal tonsils, mucus membranes moist. Neck: Supple, 2+ carotid upstroke, nontender, no lymphadenopathy. Respiratory: No retractions, no distress, no wheezes, and no accessory muscle use. Lungs are clear to auscultation bilaterally. Cardiovascular: Regular rate and rhythm, no murmurs, rubs, or gallops. Bilateral carotid, radial, dorsalis pedis, and posterior tibial pulses intact. Good capillary refill all extremities. Gastrointestinal: Abdomen is soft, nontender, non-distended, no masses, no rebound, no guarding, no peritoneal signs. Musculoskeletal: Sitting up in bed, shortened left leg, chronic bilateral lower extremity venostasis changes. Neurological: Alert, appropriate, and interactive. The patient has normal DTRs and non-focal cranial nerves, motor, sensory, and cerebellar exam. Skin: No rashes, good turgor, no nodules on palpation. Past medical history: Appendectomy, hypothyroid, arthritis, COPD, bilateral hip replacements, prolapse bladder, kidney stones, spinal stenosis, chronic pain, narcotic dependent, scoliosis, pacemaker, T9 compression fracture, kyphoplasty, bilateral cataract surgery. Family history: Denies Social history: She currently lives alone. EMS reports that her apartment was messy. She has a dog. Nonsmoker. She denies alcohol. DIAGNOSTICS/PROCEDURES/CRITICAL CARE TIME: Pelvic x-ray: Displacement and rotation of the acetabular component of a left total hip arthroplasty from the surgical bed of the [place] acetabulum, as above. EKG: The 12 lead EKG was interpreted by myself as sinus rhythm with a RBBB. This EKG is similar to a prior EKG on 12/24/17. See hard copy and/or "tracemaster" electronic copy for interpretation. Chest x-ray: No evidence for acute cardiopulmonary abnormality. Stable chronic findings. DIFFERENTIAL DIAGNOSIS: The differential diagnosis for the patient's back pain included but was not limited to musculoskeletal pain, epidural abscess, herniated disk, spinal fracture, and intra-abdominal causes including urinary system. MEDICAL DECISION MAKING: The patient is an 82 y/o female with an extensive medical history including chronic pain, bilateral hip replacement (Callie), and a T9 compression fracture with a kyphoplasty complaining of back and left hip pain. On exam she is sitting up in bed, has a shortened left leg, and chronic bilateral lower extremity venostasis changes. Pelvic x-ray ordered. 1150: I reviewed patient's pelvic x-ray which reveals a displacement and rotation of the acetabular component of a left total hip arthroplasty from the surgical bed of the [place] acetabulum, as above. 1155: Reassessed patient and discussed imaging findings including plan for admission and surgery. Patient is comfortable with this plan. Pre-op labs, chest x-ray, and EKG ordered. 1212: I spoke with the hospitalist service, Dr. Tracey accepts admission of this patient for her broken hip prosthesis and acetabulum dislodgement. We are still awaiting ortho call back. 1239: I reviewed patient's EKG as myself as sinus rhythm with a RBBB; this similar to a prior EKG from 2018. 1257: I consulted with Dr. Ledesma, orthopedic surgeon, regarding this patient. He recommends consulting with an additional orthopedic surgeon or transferring the patient to a different hospital as Dr. Ledesma does not feel comfortable operating on this patient. 1312: I consulted with Dr. Fritz, orthopedic surgeon, regarding this patient. This patient is not a candidate for surgery here. She will need to be transported to Dr. Frank, a hip specialist in [place]. 1328: I consulted with Dr. Fritz who recommends that the patient be transferred to [facility] to Dr. Frank. Dr. Fritz sent Dr. Frank the x-rays already. 1332: Reassessed patient and discussed plan for transfer to [facility]; patient is comfortable with this plan. EMTALA signed. 1347: I consulted with Dr. Frank, orthopedic surgeon at [facility], regarding this patient. He accepts admission of this patient. 1500: Patient is still awaiting to be transferred to [facility] at shift change. 50mcg IV Fentanyl administered prior to transfer. - Data Points Laboratory Results: Laboratory Results 08/02/18 12:03 08/02/18 12:03 08/02/18 08/02/18 08/02/18 12:03 12:03 12:03 WBC 8.07 10^3/uL 10^3/uL (3.80-9.50) RBC 3.52 10^6/uL L 10^6/uL (4.18-5.33) Hgb 10.8 g/dL L g/dL (12.6-16.3) Hct 35.3 % L % (38.0-47.0) MCV 100.3 fL H fL (81.5-99.8) MCH 30.7 pg pg (27.9-34.1) MCHC 30.6 g/dL L g/dL (32.4-36.7) RDW 15.6 % H % (11.5-15.2) Plt Count 344 10^3/uL 10^3/uL (150-400) MPV 9.1 fL fL (8.7-11.7) Neut % (Auto) 57.5 % % (39.3-74.2) Lymph % (Auto) 24.8 % % (15.0-45.0) Faulkner % (Auto) 11.9 % % (4.5-13.0) Eos % (Auto) 5.2 % % (0.6-7.6) Baso % (Auto) 0.4 % % (0.3-1.7) Nucleat RBC Rel Count 0.0 % % (0.0-0.2) Absolute Neuts (auto) 4.64 10^3/uL 10^3/uL (1.70-6.50) Absolute Lymphs (auto) 2.00 10^3/uL 10^3/uL (1.00-3.00) Absolute Monos (auto) 0.96 10^3/uL H 10^3/uL (0.30-0.80) Absolute Eos (auto) 0.42 10^3/uL H 10^3/uL (0.03-0.40) Absolute Basos (auto) 0.03 10^3/uL 10^3/uL (0.02-0.10) Absolute Nucleated RBC 0.00 10^3/uL 10^3/uL (0-0.01) Immature Gran % 0.2 % % (0.0-1.1) Immature Gran # 0.02 10^3/uL 10^3/uL (0.00-0.10) PT 14.1 SEC SEC (12.0-15.0) INR 1.07 (0.83-1.16) APTT 32.9 SEC SEC (23.0-38.0) Sodium 138 mEq/L mEq/L (135-145) Potassium 4.2 mEq/L mEq/L (3.5-5.2) Chloride 104 mEq/L mEq/L (97-110) Carbon Dioxide 30 mEq/l mEq/l (22-31) Anion Gap 4 mEq/L L mEq/L (6-14) BUN 13 mg/dL mg/dL (7-23) Creatinine 0.6 mg/dL mg/dL (0.6-1.0) Estimated GFR > 60 Glucose 74 mg/dL mg/dL (70-100) Calcium 9.2 mg/dL mg/dL (8.5-10.4) Medications Given: Discontinued Medications Sodium Chloride (Ns) 1,000 mls @ 0 mls/hr IV EDNOW ONE; Wide Open PRN Reason: Protocol Stop: 08/02/18 11:56 Last Admin: 08/02/18 12:11 Dose: 1,000 mls Departure - Departure Disposition: Acute Care Hospital Not [facility] Clinical Impression: Broken internal hip prosthesis Hip dislocation, left Qualifiers: Encounter type: initial encounter Qualified Code(s): S73.005A - Unspecified dislocation of left hip, initial encounter Condition: Fair Report Scribed for: Jorden Kay Report Scribed by: Kiera Kuhn Date of Report: 08/02/18 Time of Report: 11:48
[2018-08-02] MEDS ORDERED: NS 1,000 ML IV ONE (11:55)
[2018-08-02 12:21] LABS: PLATELET COUNT 344 10^3/uL (150-400)
[2018-08-02 12:33] LABS: INR 1.07 (0.83-1.16); PROTIME(PATIENT) 14.1 SEC (12.0-15.0)
--- NOTE | 2018-08-02 12:37 | ASMTCMCOM ---
CM Note CM Note Notes: Pt brought to the attention of CM by [facility] and ED RN Cody. Ed from [facility] reported that the pt's home was full of urine and feces from her dog. He stated that the smell was overwhelming and the home care provider just stepped over the feces. Information was given to file APS report. This CM spoke with the pt and her caregiver, Shruthi who works for [employer] [facility]. She indicated that the pt. receives 40 hours of in home care per week. The pt. indicated that her neighbor, Alex Holland takes the dog (cuddles) out 2- three times per day. The pt would like any and all information regarding her condition and status to be provided to her daughter, Kim Estes, her ex-, Sedrick Estes, any providers from [facility] and her neighbor Alex Holland. Shruthi requested notification if the pt. was sent to SNF. DC needs TBD CM to follow. Date Signed: 08/02/2018 12:37 PM Electronically Signed By:Ivon Sage LCSW
--- NOTE | 2018-08-02 12:45 | ASMTCMCOM ---
CM Note CM Note Notes: This CM attempted to call APS. Office is closed for holiday. CM to follow up on 08/03/18. Date Signed: 08/02/2018 12:44 PM Electronically Signed By:Ivon Sage LCSW
[2018-08-02] MEDS ORDERED: fentaNYL 100 MCG/2 ML INJ IVP ONE (14:56)
[2018-08-02 16:02] VITALS: BP 132/78
--- NOTE | 2018-08-07 18:20 | CPEKG ---
Test Reason : OPEN Blood Pressure : / mmHG Vent. Rate : 073 BPM Atrial Rate : 073 BPM P-R Int : 162 ms QRS Dur : 139 ms QT Int : 412 ms P-R-T Axes : -17 -39 -30 degrees QTc Int : 454 ms Sinus rhythm LAE, consider biatrial enlargement Right bundle branch block Probable posterior infarct, acute Confirmed by Jorden Kay ([id number]) on 08/07/2018 6:19:29 PM Referred By: Anuj Tracey Confirmed By:Jorden Kay
== END 2018-08-02 16:14 | disposition short-term general hospital (02) ==
LOC: EDUNIT# → UNDOADMIN 12:12
DX: S73.005A Unspecified dislocation of left hip, initial encounter (principal); E86.9 Volume depletion, unspecified; Z96.643 Presence of artificial hip joint, bilateral
CPT/HCPCS: 96374; J3010

== ENCOUNTER 2018-08-24 06:34 | Inpatient (IN) | payer OTHER, MEDICAID ==
--- NOTE | 2018-08-24 07:04 | EDPHY ---
H & P Time Seen by Provider: 08/24/18 07:00 HPI/ROS: Chief complaint. Fall HPI. Patient is an 82-year-old female who fell getting up to go to the bathroom this morning. She was discharged home from [facility] yesterday after left hip revision. Patient was seen in our emergency department August 02 for injury to the left hip and broken internal hip prosthesis. Local orthopedist did not feel comfortable re-doing her hip and so she was transferred to [facility]. It was recommended that she go to skilled initial nursing facility however she refused and went home to be with her dog. Again this morning she got up to go the bathroom and lost her balance and fell. She is using Lovenox. She does not think she struck her head or lost consciousness. Unsure about neck pain. She has right chest wall pain and left shoulder pain. No abdominal pain. No back pain. She has left hip pain and bilateral knee pain. ROS 10 systems were reviewed and negative with the exception of the elements mentioned in the history of present illness Past Medical/Surgical History: Recent hip surgery, appendectomy, hypothyroid, arthritis, COPD, bilateral hip replacements, prolapsed bladder, kidney stone surgery, spinal stenosis, chronic pain, pacemaker, T9 compression fracture with kyphoplasty Social History: Single, nonsmoker, no alcohol Smoking Status: Former smoker Physical Exam: General Appearance: Alert though somewhat rambling and slightly confused female mild distress vital signs significant for heart rate 106 Eyes: Pupils equal and round no pallor or injection. ENT, no hemotympanum or Sandoval sign. No oral pharyngeal or dental trauma. No obvious trauma to the head Respiratory: There are no retractions, lungs are clear to auscultation. Cardiovascular: Regular rate and rhythm. Gastrointestinal: Abdomen is soft and nontender, no masses, bowel sounds normal. Neurological: Awake and alert, sensory and motor exams grossly normal. Skin: Warm and dry, no rashes. Musculoskeletal: Neck is supple and nontender. No T, L, S spine tenderness. Pain right ribs Extremities pain left shoulder without obvious trauma. Surgical dressing on left hip without evidence of infection. Bilateral knee pain Psychiatric: Patient is oriented X 3, there is mild agitation. Constitutional: Initial Vital Signs Temperature (C) 37.1 C 08/24/18 06:51 Heart Rate 106 H 08/24/18 06:51 Respiratory Rate 18 08/24/18 06:51 Blood Pressure 113/54 L 08/24/18 06:51 O2 Sat (%) 94 08/24/18 06:51 O2 Delivery Mode Nasal Cannula O2 (L/minute) 5 Allergies/Adverse Reactions: duloxetine HCl [From Cymbalta] Allergy (Severe, Verified 12/24/17 19:01) Vomiting Iodinated Contrast- Oral and IV Dye Allergy (Severe, Verified 12/24/17 19:) Other-Enter Comments aspirin Allergy (Intermediate, Verified 12/24/17 19:) stomach pain cephalexin monohydrate [From Keflex] Allergy (Intermediate, Verified 12/24/17 19 :) Stomach Pain codeine [Codeine] Allergy (Intermediate, Verified 12/24/17:) Nausea Vomiting hydrocodone bitartrate [From Vicodin] Allergy (Intermediate, Verified 12/24/17 19:) Nausea Vomiting orphenadrine Allergy (Intermediate, Verified 12/24/17 19:) Stomach pain tetracycline [Tetracycline] Allergy (Intermediate, Verified 12/24/17 19:) Stomach Pain celecoxib Allergy (Unknown, Verified 12/24/17 19:) Weight gain, Fatigue, Increased Pain ciprofloxacin Allergy (Unknown, Verified 12/24/17 19:) clarithromycin Allergy (Unknown, Verified 12/24/17 19:) Stomach Pain levofloxacin Allergy (Unknown, Verified 12/24/17 19:) Swelling/neck,face,throat linezolid Allergy (Unknown, Verified 12/24/17 19:) sulfamethoxazole Allergy (Unknown, Verified 12/24/17 19:) Nausea Vomiting amoxicillin trihydrate [From Augmentin] Allergy (Verified 12/24/17 19:) potassium clavulanate [From Augmentin] Allergy (Verified 12/24/17 19:01) shrimp Allergy (Verified 12/24/17 19:) ORPHENGESIC Allergy (Intermediate, Uncoded 12/24/17 19:) Stomach Pain Terpin hydrate Allergy (Intermediate, Uncoded 12/24/17 19:) Stomach pain amoxicillin trihydrate Allergy (Unknown, Uncoded 12/24/17 19:) cephalexin monohydrate Allergy (Unknown, Uncoded 12/24/17 19:) Stomach Pain duloxetine HCl Allergy (Unknown, Uncoded 12/24/17 19:01) Vomiting hydrocodone bitartrate Allergy (Unknown, Uncoded 12/24/17 19:01) Nausea Vomiting potassium clavulanate Allergy (Unknown, Uncoded 12/24/17 19:01) Home Medications: Medication Instructions Recorded Ascorbic Acid [Vitamin C 500 mg 1,000 mg PO BIDMEAL 08/26/13 (*)] Calcium Carbonate [Tums 500MG (*)] 1,000 - 1,500 mg PO DAILY PRN 08/26/13 Sennosides [Senokot] 3 each PO HS 08/26/13 buPROPion XL [Wellbutrin 150mg XL] 300 mg PO DAILY 03/29/16 diphenhydrAMINE [Benadryl 25 MG 25 mg PO HS 05/17/16 (*)] Gabapentin [Neurontin 300 MG (*)] 600 mg PO BID 07/20/16 Cholecalciferol Vit D3 [Vitamin D3 2,000 units PO BID 08/11/16 (*)] Ipratropium/Albuterol [Duoneb (*)] 3 ml IH QID PRN 08/11/16 Levothyroxine [Synthroid 50 mcg 50 mcg PO DAILY06 09/24/16 (*)] oxyCODONE/APAP 5/325 [Percocet 1 tab PO Q8HRS PRN 11/22/16 5/325 (*)] Pantoprazole Sodium [Protonix 40mg 40 mg PO DAILY tab 11/28/16 (*)] Fluticasone/Salmeter 500/50Mcg 1 puffs IH BID 02/17/17 [Advair 500/50 (*)] Dicyclomine [Bentyl 20 MG (*)] 20 mg PO QID PRN 08/06/17 Albuterol [Proventil Inhaler HFA 1 - 2 puffs IH Q4H PRN 12/24/17 (*)] Diazepam [Valium 5 MG (*)] 2.5 - 5 mg PO Q6HRS PRN 08/24/18 Doxycycline Hyclate [Vibramycin 100 mg PO BID 08/24/18 100 MG (*)] Enoxaparin [Lovenox] 30 mg SQ DAILY 08/24/18 Ibuprofen [Motrin (*)] 200 mg PO Q6HRS PRN 08/24/18 Lidocaine 4%/Menthol 1% [Icy Hot 1 patch TD DAILY 08/24/18 Lidocaine/Menthol 4%/1% Patch (*)] Magnesium Hydroxide [Milk of 5 - 15 ml PO QID PRN 08/24/18 Magnesia] morphINE IR [morphINE IR 30 mg (*)] 15 - 30 mg PO Q4HRS PRN 08/24/18 morphINE SR [MS Contin/Oramorph 60 120 mg PO BID 08/24/18 mg (*)] Medical Decision Making - Diagnostics EKG Interpretation: EKG interpreted by me shows normal sinus rhythm normal interval and axis. QRS shows right bundle branch block. No significant ST elevation or depression. 1 PVC. Rate is 94 Imaging Results: Imaging Impressions Chest X-Ray 08/24/18 07:14 Impression: Negative portable chest. No pneumothorax or displaced rib fracture. Cervical Spine CT 08/24/18 07:15 Impression: 1. Bilateral C6 facet fractures, nondisplaced. 2. Possible bilateral C5 nondisplaced facet fractures. 3. C5-C6 severe central canal stenosis secondary to degenerative retrolisthesis and severe degenerative disk disease with facet arthropathy. 4. Degenerative anterolisthesis at C3-C4 and C4-C5 with multilevel severe bilateral facet arthropathy from C3-C4 through C7-T1. 5. No cervical compression fracture or odontoid fracture. 6. Recommend neurosurgery consult. Cosigned: Manuel Mendez M.D. Findings and recommendations discussed with Emergency Department physician, Nir Lopez, at 0923 hours, 08/24/2018. Final report concurs with initial preliminary interpretation. Head CT 08/24/18 07:15 Impression: 1. Mild atrophy. 2. No acute hemorrhage, hydrocephalus, or mass effect. 3. Cerebrovascular atherosclerosis. 4. No definite acute infarct. 5. Moderate microvascular ischemic gliosis. Findings and recommendations discussed with Emergency Department physician, Nir Lopez, at 0900 hours, 08/24/2018. Final report concurs with initial preliminary interpretation. Hip X-Ray 08/24/18 07:15 Impression: Dislocated left hip. Left acetabular component is dislocated superiorly out of the acetabulum. Knee X-Ray 08/24/18 07:16 Impression: 1. Severe knee osteoarthritis. 2. No acute fracture or effusion. Knee X-Ray 08/24/18 07:16 Impression: 1. Knee joint effusion 2. No acute fracture identified. 3. Osteoarthritis worst involving the lateral knee joint compartment. 4. Severe osteoporosis. This patient might benefit from a follow-up DEXA scan. A DEXA scan in 2014 revealed osteopenia. Shoulder X-Ray 08/24/18 09:08 Impression: Nothing acute identified. 2. Left Wrist, 4 views including a navicular view History: Pain post trauma, fall. Comparison: None Findings: There is diffuse severe osteoporosis. There is a subtle buckle of the distal dorsal radial cortex in the region of the metaphysis. There is a concave deformity with cortical sclerosis involving the distal radial articular surface consistent with remote trauma or chronic eburnation related to severe osteoarthritis. The joint between the scaphoid and the lunate is wide, likely chronic considering the adjacent radial deformity related There is degenerative cystic change in the carpal bones greatest involving the navicular and capitate. There is chondrocalcinosis of the triangular fibrocartilage. There is severe osteoarthritis at the base of the thumb and involving the first IP joint. There is severe erosive arthritis and subluxation of the third DIP joint and possible fusion related to prior erosive osteoarthritis of the fourth DIP joint. Impression: Cannot exclude a distal dorsal radial metaphyseal buckle fracture. Other severe remote posttraumatic and degenerative changes are described above. Wrist X-Ray 08/24/18 09:08 Impression: Nothing acute identified. 2. Left Wrist, 4 views including a navicular view History: Pain post trauma, fall. Comparison: None Findings: There is diffuse severe osteoporosis. There is a subtle buckle of the distal dorsal radial cortex in the region of the metaphysis. There is a concave deformity with cortical sclerosis involving the distal radial articular surface consistent with remote trauma or chronic eburnation related to severe osteoarthritis. The joint between the scaphoid and the lunate is wide, likely chronic considering the adjacent radial deformity related There is degenerative cystic change in the carpal bones greatest involving the navicular and capitate. There is chondrocalcinosis of the triangular fibrocartilage. There is severe osteoarthritis at the base of the thumb and involving the first IP joint. There is severe erosive arthritis and subluxation of the third DIP joint and possible fusion related to prior erosive osteoarthritis of the fourth DIP joint. Impression: Cannot exclude a distal dorsal radial metaphyseal buckle fracture. Other severe remote posttraumatic and degenerative changes are described above. Chest CT 08/24/18 09:09 Impression: 1. Centrilobular emphysema. 2. No acute rib fracture. 3. Old T9, T10 and T11 compression fractures, severe at T9, with prior T10 kyphoplasty, unchanged since 2017. 4. Pleuroparenchymal scarring in the right lower lobe with peribronchial thickening and mucous plugging in bilateral lower lobes. 5. No pneumothorax. Findings and recommendations discussed with Emergency Department physician, Nir Lopez, at 1009 hours, 08/24/2018. Final report concurs with initial preliminary interpretation. One-view chest x-ray shows no obvious rib fractures or pneumothorax X-ray left hip shows the left acetabular component dislocated superiorly out of the acetabular X-ray knee no fracture but DJD CT head reviewed by me and discussed with Radiology shows no intracranial bleed CT cervical spine reviewed by me and discussed with Radiology shows bilateral nondisplaced facet fractures of C5 and C6. No obvious compression fracture Possible distal left radius fracture Procedures: IV normal saline. Morphine for pain Cervical collar is placed ED Course/Re-evaluation: At about 8:[address] a[address] Dr. Frank at [facility]. Dr. Frank is and surgery. Message is left. Dr. Frank will call back following surgery I consulted discussed the case with Dr. Easley, trauma surgery, who will see the patient in the emergency department I consulted discussed the case with Dr. Frank at [facility]. He says that the patient refused surgery and dislocated the hip in the hospital. They had palliative care and hospice involved. I consulted discussed case with Dr. Dill for Neurosurgery who will review her CT and see the patient in the ED We had outreach and education social worker patient care involved. [facility] feels that they have nothing further to offer and declined transfer of this patient. I have communicated this to Dr. Easley who agrees to the admission I consulted discussed case with Dr. Hernandez for orthopedics who will see the patient in consultation Differential Diagnosis: The patient has displacement of hardware of her left hip. She had apparently declined revision surgery while at [facility]. They had palliative care and hospice seeing the patient. There is some concern about patient's capacity for making decisions. Were trying to get a hold of her power of employee benefits attorney who is her ex-. Patient has displacement of hardware left hip. I considered cervical spine and intracranial injury. No evidence of skull fracture intracranial bleeding however the patient has posterior bilateral facet fractures and is neurologically stable. - Data Points Laboratory Results: Laboratory Results 08/24/18 07:10 08/24/18 07:10 08/24/18 08/24/18 08/24/18 07:51 07:45 07:10 WBC RBC Hgb Hct MCV MCH MCHC RDW Plt Count MPV Neut % (Auto) Lymph % (Auto) [place] % (Auto) Eos % (Auto) Baso % (Auto) Nucleat RBC Rel Count Absolute Neuts (auto) Absolute Lymphs (auto) Absolute Monos (auto) Absolute Eos (auto) Absolute Basos (auto) Absolute Nucleated RBC Immature Gran % Immature Gran # PT INR APTT Sodium 135 mEq/L mEq/L (135-145) Potassium 3.7 mEq/L mEq/L (3.5-5.2) Chloride 99 mEq/L mEq/L (97-110) Carbon Dioxide 30 mEq/l mEq/l (22-31) Anion Gap 6 mEq/L mEq/L (6-14) BUN 5 mg/dL L mg/dL (7-23) Creatinine 0.5 mg/dL L mg/dL (0.6-1.0) Estimated GFR > 60 Glucose 102 mg/dL H mg/dL (70-100) Calcium 8.7 mg/dL mg/dL (8.5-10.4) POC Troponin I 0.00 ng/mL ng/mL (0.00-0.08) Urine Color SAVANNA Urine Appearance HAZY Urine pH 7.0 (5.0-7.5) Ur Specific [place] 1.011 (1.002-1.030) Urine Protein NEGATIVE (NEGATIVE) Urine Ketones NEGATIVE (NEGATIVE) Urine Blood 1+ H (NEGATIVE) Urine Nitrate NEGATIVE (NEGATIVE) Urine Bilirubin NEGATIVE (NEGATIVE) Urine Urobilinogen NEGATIVE EU EU (0.2-1.0) Ur Leukocyte Esterase TRACE H (NEGATIVE) Urine RBC 5-10 /hpf H /hpf (0-3) Urine WBC 5-10 /hpf H /hpf (0-3) Ur Epithelial Cells TRACE /lpf /lpf (NONE-1+) Urine Mucus TRACE /lpf /lpf (NONE-1+) Urine Glucose NEGATIVE (NEGATIVE) 08/24/18 08/24/18 07:10 07:10 WBC 7.32 10^3/uL 10^3/uL (3.80-9.50) RBC 3.10 10^6/uL L 10^6/uL (4.18-5.33) Hgb 9.4 g/dL L g/dL (12.6-16.3) Hct 30.2 % L % (38.0-47.0) MCV 97.4 fL fL (81.5-99.8) MCH 30.3 pg pg (27.9-34.1) MCHC 31.1 g/dL L g/dL (32.4-36.7) RDW 14.5 % % (11.5-15.2) Plt Count 503 10^3/uL H 10^3/uL (150-400) MPV 8.5 fL L fL (8.7-11.7) Neut % (Auto) 66.7 % % (39.3-74.2) Lymph % (Auto) 16.3 % % (15.0-45.0) [place] % (Auto) 11.7 % % (4.5-13.0) Eos % (Auto) 4.4 % % (0.6-7.6) Baso % (Auto) 0.5 % % (0.3-1.7) Nucleat RBC Rel Count 0.0 % % (0.0-0.2) Absolute Neuts (auto) 4.88 10^3/uL 10^3/uL (1.70-6.50) Absolute Lymphs (auto) 1.19 10^3/uL 10^3/uL (1.00-3.00) Absolute Monos (auto) 0.86 10^3/uL H 10^3/uL (0.30-0.80) Absolute Eos (auto) 0.32 10^3/uL 10^3/uL (0.03-0.40) Absolute Basos (auto) 0.04 10^3/uL 10^3/uL (0.02-0.10) Absolute Nucleated RBC 0.00 10^3/uL 10^3/uL (0-0.01) Immature Gran % 0.4 % % (0.0-1.1) Immature Gran # 0.03 10^3/uL 10^3/uL (0.00-0.10) PT 14.2 SEC SEC (12.0-15.0) INR 1.15 (0.83-1.16) APTT 35.4 SEC SEC (23.0-38.0) Sodium Potassium Chloride Carbon Dioxide Anion Gap BUN Creatinine Estimated GFR Glucose Calcium POC Troponin I Urine Color Urine Appearance Urine pH Ur Specific [place] Urine Protein Urine Ketones Urine Blood Urine Nitrate Urine Bilirubin Urine Urobilinogen Ur Leukocyte Esterase Urine RBC Urine WBC Ur Epithelial Cells Urine Mucus Urine Glucose Medications Given: Hydromorphone HCl (Dilaudid) 0.5 mg IVP Q4HRS PRN PRN Reason: Pain, Severe Unable to Take PO Stop: 09/03/18 11:58 Last Admin: 08/24/18 13:11 Dose: 0.5 mg Discontinued Medications Sodium Chloride (Ns) 1,000 mls @ 0 mls/hr IV EDNOW ONE; Wide Open PRN Reason: Protocol Stop: 08/24/18 07:21 Last Admin: 08/24/18 07:25 Dose: 1,000 mls Morphine Sulfate (Morphine) 4 mg IVP EDNOW ONE Stop: 08/24/18 07:21 Last Admin: 08/24/18 07:25 Dose: 4 mg Morphine Sulfate (Morphine) 2 mg IVP EDNOW ONE Stop: 08/24/18 08:13 Last Admin: 08/24/18 08:14 Dose: 2 mg Morphine Sulfate (Morphine) 6 mg IVP EDNOW ONE Stop: 08/24/18 09:09 Last Admin: 08/24/18 09:12 Dose: 4 mg Point of Care Test Results: Chemistry 08/24/18 07:51 POC Troponin I 0.00 ng/mL ng/mL (0.00-0.08) Departure - Departure Disposition: [facility] Inpatient Acute Clinical Impression: Broken internal hip prosthesis Cervical spine fracture Qualifiers: Encounter type: initial encounter Cervical vertebra fracture level: C5 Fracture type: closed Fracture morphology: unspecified fracture morphology Fracture alignment: nondisplaced Qualified Code(s): S12.401A - Unspecified nondisplaced fracture of fifth cervical vertebra, initial encounter for closed fracture Condition: Fair
[2018-08-24] MEDS ORDERED: NS 1,000 ML IV ONE (07:20)
[2018-08-24 07:23] LABS: PLATELET COUNT 503 10^3/uL (150-400)
[2018-08-24 07:33] LABS: INR 1.15 (0.83-1.16); PROTIME(PATIENT) 14.2 SEC (12.0-15.0)
--- NOTE | 2018-08-24 09:18 | CPEKG ---
Test Reason : OPEN Blood Pressure : / mmHG Vent. Rate : 094 BPM Atrial Rate : 095 BPM P-R Int : 192 ms QRS Dur : 125 ms QT Int : 375 ms P-R-T Axes : 092 -29 -03 degrees QTc Int : 469 ms Sinus rhythm Ventricular premature complex Right bundle branch block Confirmed by Veronica Lopez ([id number]) on 08/24/2018 9:17:34 AM Referred By: VERONICA LOPEZ Confirmed By:Veronica Lopez
--- NOTE | 2018-08-24 10:06 | GHP ---
[f rep st] HISTORY AND PHYSICAL DATE OF ADMISSION: 08/24/2018 TRAUMA CONSULTATION REQUEST BY: Nir Lopez MD REASON FOR CONSULTATION: Fall. HISTORY: The patient is an 82-year-old female who lives at home by herself. She has a history of bilateral hip replacement and revisions of her hip replacements x6, the most recent of which was 2 weeks ago. She came to the hospital on the 02 of August. She had been complaining of hip pain for 2 weeks, which was worse for the prior 2 days. She was found to have a dislocated acetabular prosthesis and was transferred to the [facility] under the care of Dr. Frank. She underwent revision of the femoral component. She was discharged yesterday to home (instead of SNF) at her request because she had to see her dog. At 4:30 this morning, she got out of bed and slipped landing on the floor. She was able to pull the phone over to her and call 911 and was transferred to [facility]. Evaluation in the ER shows that she does have a dislocation of her acetabular prosthesis. Dr. Frank has been contacted. ADDITIONAL ISSUES: She has had bladder prolapse issues. She has had a kidney stone surgically removed. She has had problems with spinal stenosis. She does have a pacemaker. She has had bilateral cataract surgery. She has an upper midline epigastric scar, which she is unclear as to what that was for, and she thinks it may have been a perforated duodenal ulcer. She is unclear if she still has her gallbladder or not. I was asked to come see her because of her trauma prior to transfer. At this point, she is complaining of left shoulder and left wrist pain. X-rays are pending. She has had a CT of her C-spine. She is complaining of pain in her C-spine at approximately C4. She complains of bilateral chest pain, and a CT of her chest is pending. Note is made she is on Lovenox. ALLERGIES: Her list of allergies and adverse reactions is long. It includes Cymbalta, which causes vomiting, iodinated contrast material. She has stomach pain with aspirin. She has stomach pain with Keflex. She has nausea and vomiting with codeine. She has nausea and vomiting with Vicodin. She has stomach pain with orphenadrine. Tetracycline causes stomach pain. She complains of weight gain, fatigue, and increased pain with celecoxib. She says she is allergic to ciprofloxacin but does not know the mechanism of the allergy. Clarithromycin gives her stomach pain. Levofloxacin causes swelling of her face, neck, and throat. She has a linezolid allergy. How that is manifested is unclear. She has nausea and vomiting with sulfamethoxazole. Augmentin is an allergy. She states she has a shrimp allergy. With Orphengesic , she has stomach pain. With terpin hydrate, she has stomach pain. With duloxetine, she says she has an allergy. RECURRENT MEDICATIONS: Include Lovenox, vitamin C 500 mg b.i.d. with meals, calcium carbonate (Tums) 1000 mg daily, Senokot 3 q.h.s., Wellbutrin 300 mg daily, Benadryl 25 mg p.o. q.h.s., Neurontin 600 mg twice a day, vitamin D3 1000 units twice a day, DuoNeb 3 mL IH q.i.d. p.r.n., Synthroid 50 mcg daily, Percocet 1 tab every 4 hours, Protonix 40 mg daily, Advair inhaler 500/50 one puff twice a day, Vibramycin 100 mg daily, Bentyl 20 mg 4 times a day for spasm , Zofran ODT 4 mg q.6 p.r.n., 4% lidocaine patch daily, albuterol 1.25 mg IH p.r.n., Proventil inhaler 1-2 puffs q.4 h. p.r.n., and OxyContin 15 mg p.o. b.i.d.. IMAGING: At this point, the CT of her head is negative. The report on her C- spine is pending. Left wrist x-ray is pending. Left shoulder series is pending. CT of her chest is pending. PHYSICAL EXAMINATION: GENERAL: She is awake and complaining of discomfort. Discomfort is mainly in her hip, but on examination, she is painful in her neck posteriorly as mentioned above, her left shoulder, and her left wrist. She is awake, alert, frustrated. NEUROLOGIC: She is oriented to person, place, and time. Her GCS is 15. Her pupils are equal, round, reactive to light and accommodation. She has normal dental occlusion. There are no raccoon eyes. There is no Sandoval sign. There are no focal or lateralizing neurologic findings. NECK: She is not in a collar at this point. She is slightly tender to approximately C4 posteriorly. I do not appreciate any carotid bruits. UPPER EXTREMITIES: Her right upper extremity has full range of motion. Her right clavicle is unremarkable. Her left clavicle is unremarkable, nontender, but she is tender over the shoulder with motion of her shoulder. She has contusions over the dorsal surface of her left hand, as well as pain in the carpal bones. X-ray is pending. She is not tender to longitudinal distraction of the wrist. CHEST: Tender bilaterally. Lung sounds are equal bilaterally. I do not appreciate any pneumothorax, and I cannot see any rib fractures on the plain film. ABDOMEN: Soft. She has a vertically oriented right paramedian epigastric incision. LOWER EXTREMITIES: Her left leg is internally rotated and slightly foreshortened. She has good peripheral pulses in her lower extremities. Her feet are warm, and sensation is normal. IMPRESSION: Patient with serial hip dislocations who has yet another hip dislocation. In spite of the fact she is on Lovenox, I did not detect any other signs of bleeding. I am concerned about a posterior spinous process fracture in her C-spine. While I am awaiting x-ray reports a C-collar has been placed. I am concerned about her left shoulder, and an x-ray will help sort that out. Her left hand, I feel, is probably contused, and x-rays will help clarify that issue. Chest x-ray is difficult at this point for identification of any rib fractures. A noncontrast CT will be performed. Certainly, she does not have a pneumothorax at this point. Her abdomen is, otherwise, soft with hypoactive bowel sounds. Once we sort out her issues, the plan is, hopefully, to transfer her to Dr. Frank's care at the [facility]. A call is being placed by Dr. Nir Lopez of the . /[id number]
[2018-08-24] MEDS ORDERED: HYDROmorphONE/DILAUDID 1 MG/ML INJ ONE ×2 (12:01→13:05)
[2018-08-24] MEDS: HYDROmorphONE/DILAUDID 1 MG/ML INJ IVP PRN ×3 (12:03→17:25)
--- NOTE | 2018-08-24 12:58 | ASMTCMCOM ---
CM Note CM Note Notes: Request for assistance from Dr. Arechiga. Pt was released on day prior from [facility] with in-home palliative care and in home health. Pt fell overnight and suffered additional injuries. CM spoke with Maryanne from palliative care who reported that pt. had an extensive assessment with palliative care and a treatment plan with a signed MDPOA. Maryanne faxed the Plan of care and MDPOA which received and fax attached in [employer]. [facility] lists pts ex- Sedrick Estes as the appointed agent. CM called Sedrick and he is on his way to the hospital to discuss plan of action for the pt. CM called Shruthi Locke from [facility] [place] [phone]. Shruthi is listed as secondary and pt would like her to be updated of her ongoing care. Pt is being admitted and further action will be discussed with MDPOA and admitting/attending physician. Sedrick indicated that he believes pt should have fullerette care and have hospice placement. DC plans TBD CM to follow. Date Signed: 08/24/2018 12:58 PM Electronically Signed By:Ivon Sage LCSW
[2018-08-24] MEDS ORDERED: ENOXAPARIN 40 MG/0.4 ML SYR SC SCH (13:00)
--- NOTE | 2018-08-24 13:22 | GCON ---
[f rep st] CONSULTATION NEUROSURGICAL CONSULTATION DATE OF CONSULTATION: 08/24/2018 CHIEF COMPLAINT: Fall. HISTORY OF PRESENT ILLNESS: The patient is an 82-year-old female who presents to [facility] Emergency Department after sustaining a fall at home. The patient has recently undergone a left hip revision and was discharged from [facility] yesterday to home where she lives alone, with her dog. The patient states she got out of bed this morning to go use the bathroom and fell down next to her nightstand. She was able to reach her phone to call 911, but was unable to walk. She states that she did not hit her head or lose consciousness. She states she landed on her buttocks. She currently is denying any numbness, tingling, or weakness in her extremities. She is not having any neck pain, but has some discomfort in her right trapezius muscle from the temporary cervical collar that she is wearing. She is not reporting any back pain or leg pain or arm pain. Neurosurgical consult is requested, secondary to finding on CT of the cervical spine indicating bilateral C6 nondisplaced facet fractures. REVIEW OF SYSTEMS: Right clavicle pain, bilateral knee pain, right hip pain. Shortness of breath. No chest pain. No abdominal pain. PAST MEDICAL HISTORY: 1. Recent left hip surgery. 2. Appendectomy. 3. Hypothyroidism. 4. Arthritis. 5. COPD. 6. Bilateral hip replacements. 7. Prolapsed bladder. 8. Kidney stone surgery. 9. Spinal stenosis. 10. Chronic pain. 11. Pacemaker. 12. T9 compression fracture with kyphoplasty. 13. Bilateral cataract surgery. SOCIAL HISTORY: The patient is single. She does not drink or smoke. She lives alone at home. The patient is a former smoker. HOME MEDICATIONS: Vitamin C 500 mg tablet, 1000 mg p.o. b.i.d. with meals, Tums 1000 mg p.o. daily as needed, Senokot 3 tablets p.o. q.h.s., Wellbutrin 150 mg XL 300 mg p.o. daily, Benadryl 25 mg p.o. h.s., gabapentin 600 mg p.o. b.i.d., vitamin D3 1000 units p.o. b.i.d., DuoNeb 3 mL inhaled q.i.d. as needed , Synthroid 50 mcg p.o. daily. Patient is on Lovenox. ALLERGIES: Cymbalta, iodinated contrast, aspirin, Keflex, codeine, Vicodin, orphenadrine, tetracycline, celecoxib, and ciprofloxacin. PHYSICAL EXAM: GENERAL: Tired appearing female in no apparent distress. HEAD , EARS, NOSE, THROAT: Within normal limits. EXTREMITIES: Within normal limits , with the exception of limited range of motion of the left hip and renata in the left hip from with a bandage after recent surgery. NECK: Cervical spine is nontender to palpation. NEUROLOGIC: Patient is awake, alert, and oriented x3. She follows commands. Her speech is fluent. Pupils are equal, round, reactive to light. Extraocular movements are intact. She has equal and symmetric strength in all muscle groups of the bilateral upper extremities at 5/ 5. Lower extremity muscle strength testing is limited on the left side due to left artificial hip dislocation. The right lower extremity is 5/5 throughout. LABORATORY DATA: White blood cell count 7.32, hemoglobin 9.4, hematocrit 30.2, platelets are 503,000. Chemistry: Sodium 135, potassium 3.7, chloride 99, carbon dioxide 30, BUN 5, creatinine 0.5. Urinalysis is notable for trace leukocyte esterase, 5 to 10 white blood cells. PT is 14.2, PTT 35.4, INR is 1.15. IMAGING STUDIES: Reviewed CT scan of the head without contrast demonstrates mild atrophy. No acute hemorrhage, hydrocephalus, or mass effect. Cerebral vascular atherosclerosis is noted. No acute infarct. Moderate microvascular ischemic gliosis noted per the report. CT of the cervical spine demonstrates bilateral C6 facet fractures, which are nondisplaced. A possible bilateral C5 nondisplaced facet fracture. C5-6 disk space demonstrates severe central canal stenosis, secondary to degenerative retrolisthesis and severe degenerative disk disease with facet arthropathy. Degenerative anterolisthesis is notable at C3-4 and C4-5 with multilevel severe bilateral facet arthropathy from C3-4 through C7-T1. No cervical compression fracture or odontoid fracture. Hip x-ray demonstrates a dislocated left hip with left acetabular component dislocated superiorly out of the acetabulum. IMPRESSION: This is an 82-year-old female status post fall with bilateral C6 nondisplaced facet fractures and possible bilateral C5 nondisplaced facet fracture. Neurologically, the patient is intact with no focal upper extremity weakness. She is not having focal axial neck pain or tenderness. The patient also has a left hip dislocation. Left shoulder x-ray demonstrates no acute findings. Left wrist fracture demonstrates per the report "cannot exclude a distal radial metaphyseal buckle fracture. Other severe remote posttraumatic and degenerative changes are noted." PLAN: All the above issues were discussed with Dr. Dill who saw and examined the patient in the emergency department this morning. At this time, we recommend the patient be maintained in a hard cervical collar and Chain Hoist Operator has been contacted to come place her in a [place] J collar, which we recommend she wear for 2 to 3 months. We would like her to follow up with Dr. Dill in clinic in approximately 2 weeks. Should this patient be admitted, we will continue to follow her progress while she is hospitalized. /[id number]/MODL MTDD
[2018-08-24] MEDS ORDERED: ONDANSETRON 4 MG/2 ML VIAL IVP PRN (13:26)
[2018-08-24] MEDS ORDERED: D5W 1/2 NS 1,000 ML IV SCH (13:30)
[2018-08-24] MEDS ORDERED: ALBUTEROL 60 PUFFS/8 GM MDI IH PRN (13:40)
[2018-08-24] MEDS ORDERED: IPRATROPIUM/ALBUTEROL 3 ML DEYVIAL IH PRN (13:40)
[2018-08-24] MEDS ORDERED: MAGNESIUM HYDROXIDE 30 ML UDCUP PO PRN (13:40)
[2018-08-24] MEDS ORDERED: IBUPROFEN 200 MG TAB PO PRN (13:40)
[2018-08-24] MEDS: buPROPion XL 150 MG TAB PO SCH (15:28)
[2018-08-24] MEDS: PANTOPRAZOLE SODIUM 40 MG TAB PO SCH (15:28)
[2018-08-24] MEDS: ACETAMINOPHEN 500 MG TAB PO SCH ×3 (15:34→23:23)
[2018-08-24] MEDS: FLUTICASONE/SALMETER 500/50MCG DISKUS IH SCH ×2 (16:49→21:30)
--- NOTE | 2018-08-24 17:13 | PDMN ---
Medical Necessity Medical necessity: Pt meets IP criteria per MD & MCG; est los >2 mn for eval/tx of hip prosthesis dislocation, cervical fx & L shoulder trauma s/p fall; requiring further monitoring, Neurosurgery/Hospitalist/Palliative consults, pain management & therapies; comorbid advanced age, recent L hip revision ( discharged home yesterday), COPD; per order & H&P 08/24/18
--- NOTE | 2018-08-24 17:40 | ASMTCMCOM ---
CM Note CM Note Notes: Shruthi called and requested information regarding 24 hour home care/hospice information. It is unclear if this request is consistent with decisions made by Sedrick who is [facility]. CM to follow. Date Signed: 08/24/2018 05:40 PM Electronically Signed By:Ivon Sage LCSW
--- NOTE | 2018-08-24 18:22 | SOAPPROG ---
ANDRES Progress Note Assessment/Plan: Assessment: Complex L hip history now with salvage bipolar hemiarthroplasty with dislocation, however, this is her expected position and has been deemed her final result by her long-standing arthroplasty surgeon at [facility] in [place]. L wrist pain, unlikely represents an acute fracture, and more likely is a sprain or exacerbation of her DJD. She was discharged from last night with a hospice plan in place. Once she is deemed stable and appropriate for discharge with regard to her cervical injury, she is OK for discharge from an orthopaedic standpoint. Plan: WBAT LLE with posterior hip precautions. Position of comfort. L wrist NWB and in velcro splint to be conservative, and we will repeat XRs in 1 week, if her dispo plan and overall end of life care plan allows it. RICE and ice massage prn. PO analgesics prn. VTE prophylaxis. I anticipate [facility] ethics and social work teams will need to be involved with her ultimate dispo plan, given the complex nature of her condition. We have requested all records from [facility] transferred to [facility]. Please call us with any questions. We will follow with you. 08/24/18 18:27 Subjective: 82F with long and complex L BROOKS history, including infection requiring explantation of components and revision of components over the past 5+ years, who is an established patient of Dr Mike Frank MD at [facility]. She was discharged from yesterday evening, after a multi-week stay including revision hip surgery, resulting in a salvage procedure of bipolar hemiarthroplasty and acetabular explantation. She was found to have instability , as expected, prior to discharge, and was managed with WBAT and PHPs. At , prior to discharge and per Dr Frank's report during our phone conversation today , extensive, multidisciplinary counseling was performed, including an ethics committee ruling, and it was determined that Tahira would be discharged to hospice and palliative care. She decided against any further surgery, and agreed with the plan. Unfortunately, she presented today after another fall, and was found to have cervical fractures, possible L wrist fracture and the unusual hip arthroplasty. As a result, I was consulted as the auto parts counter person orthopaedic surgeon. Tahira denies any pain at her wrist, and no significant new pain at her hip. Her hip is not significantly different from prior to her discharge at last night. No numbness or tingling at either BUE or BLEs. She is accompanied by her ex-, who is apparently her MPOA. Objective: Vital Signs Temp Pulse Resp BP Pulse Ox 36.6 C 85 18 138/56 H 96 08/24/18 15:14 08/24/18 15:14 08/24/18 15:14 08/24/18 15:20 08/24/18 15:14 08/23/18 08/24/18 08/25/18 05:59 05:59 05:59 Intake Total 1000 Balance 1000 PT 14.2 SEC (12.0-15.0) 08/24/18 07:10 INR 1.15 (0.83-1.16) 08/24/18 07:10 L hip is with minor edema and ecchymosis, intact post-op dsg, no surrounding erythema, calor or obvious discharge. She has a very thin, late stage surgical dressing. No palpable hematoma, thigh is soft, +TTP in this area. Compartments soft throughout. ROM 0-100 actively and without difficulty. Calves NT, no edema, negative Justin's BLE. DNVI BLE w/o deficit. L wrist splint is removed and though there are some chronic appearing skin changes, including sub-acute appearing ecchymosis (such as would be seen with prior PIV) , there is no edema c/w an acute injury. NTTP throughout her wrist, stable DRUJ shuck. ROM: WE 60, WF 75, P/S 80 limited by minor pain. Full composite fist closure with 5/5 e learning developer strength and minor pain. DNVI BUE. XR: L hip bipolar hemiarthroplasty with supero-lateral positioning, dislocated from her prior acetabular component fossa. This is consistent with her position prior to discharge from . No obvious fracture. Components are intact and in appropriate alignment within femur. L wrist DJD, though no obvious acute fracture or dislocation. ICD10 Worksheet Patient Problems: Problems Problem Status Onset Broken internal hip prosthesis Acute Cervical spine fracture Acute Abdominal pain Acute Abdominal pain Acute Acute respiratory failure Acute Altered mental status Acute Back pain Acute COPD (chronic obstructive pulmonary disease) Acute Chest discomfort Acute Chronic left hip pain Acute Chronic obstructive pulmonary disease with acute exacerbation Acute Complete heart block Acute Dyspnea Acute Dyspnea Acute Elevated troponin Acute Fall from ground level Acute Forehead contusion Acute Gastric ulcer with perforation Acute Generalized weakness Acute Hip dislocation, left Acute Hypoxemia Acute Nausea Acute Osteoporosis Acute Palliative care encounter Acute S/P hip replacement Acute Syncope Acute chronic disease mgmt/transitional care Acute
[2018-08-24] MEDS: ASCORBIC ACID 500 MG TAB PO SCH (18:23)
--- NOTE | 2018-08-24 18:34 | PDCONSULT ---
Pharmacovigilance Scientist Note: See my SOAP progress note for full consultation.
[2018-08-24] MEDS: CHOLECALCIFEROL VIT D3 2,000 UNITS TAB/CAP PO SCH (21:22)
[2018-08-24] MEDS: GABAPENTIN 300 MG CAP PO SCH (21:22)
[2018-08-24] MEDS: SENNOSIDES 1 TAB PO SCH (21:22)
[2018-08-24] MEDS: HYDROmorphONE/DILAUDID 2 MG TAB PO PRN ×2 (21:25→23:45)
[2018-08-25 04:58] LABS: PLATELET COUNT 449 10^3/uL (150-400)
[2018-08-25] MEDS: LEVOTHYROXINE 50 MCG TAB PO SCH (05:36)
[2018-08-25] MEDS: HYDROmorphONE/DILAUDID 2 MG TAB PO PRN ×5 (05:45→21:52)
--- NOTE | 2018-08-25 07:56 | SOAPPROG ---
SOAP Progress Note Assessment/Plan: Assessment: 82 yo F with right C5, C6 facet fracture after fall Plan: neuro: stable hard collar to be worn at all times for 8-12 weeks PT/OT will check upright x-rays in collar to evaluate cervical alignment. ok to discharge home when cleared by Trauma if x-rays are stable Follow up with Dr Dill in 2 weeks with repeat x-rays of cervical spine please call with neuro changes patient seen by Dr Dill at 6:50 this am 08/25/18 07:53 08/25/18 07:55 Subjective: + neck pain, no arm pain, no weakness. Objective: Vital Signs Temp Pulse Resp BP Pulse Ox 36.5 C 74 19 154/74 H 99 08/25/18 07:33 08/25/18 07:33 08/25/18 07:33 08/25/18 07:33 08/25/18 07:33 Laboratory Results 08/25/18 04:25 08/25/18 04:25 08/24/18 08/25/18 08/26/18 05:59 05:59 05:59 Intake Total 1250 Output Total 550 Balance 700 PT 14.2 SEC (12.0-15.0) 08/24/18 07:10 INR 1.15 (0.83-1.16) 08/24/18 07:10 AAOx4, +FC PERRL, EOMI, no facial droop 5/5 + light touch hard collar in place ICD10 Worksheet Patient Problems: Problems Problem Status Onset Broken internal hip prosthesis Acute Cervical spine fracture Acute Abdominal pain Acute Abdominal pain Acute Acute respiratory failure Acute Altered mental status Acute Back pain Acute COPD (chronic obstructive pulmonary disease) Acute Chest discomfort Acute Chronic left hip pain Acute Chronic obstructive pulmonary disease with acute exacerbation Acute Complete heart block Acute Dyspnea Acute Dyspnea Acute Elevated troponin Acute Fall from ground level Acute Forehead contusion Acute Gastric ulcer with perforation Acute Generalized weakness Acute Hip dislocation, left Acute Hypoxemia Acute Nausea Acute Osteoporosis Acute Palliative care encounter Acute S/P hip replacement Acute Syncope Acute chronic disease mgmt/transitional care Acute
--- NOTE | 2018-08-25 08:18 | SOAPPROG ---
ANDRES Progress Note Assessment/Plan: Assessment: Complex left hip history now with salvage bipolar hemiarthroplasty with dislocation, however, this is her expected position and has been deemed her final result by her long-standing arthroplasty surgeon at [facility] in [place], Dr. Frank. Left wrist pain, unlikely represents an acute fracture, and more likely is a sprain or exacerbation of her OA. She was discharged from [facility] two nights ago with a hospice plan in place. Once she is deemed stable and appropriate for discharge with regard to her cervical injury, she is OK for discharge from an orthopaedic standpoint. Plan: 1. WBAT LLE with posterior hip precautions. Position of comfort. Maintain Aquacel. 2. Left wrist: NWB and maintain velcro splint to be conservative, and we will repeat XRs in 1 week, if her disposition plan and overall end of life care plan allows it. 3. RICE and ice massage prn. 4. Pain control: Per hospitalists PO analgesics prn. 5. VTE prophylaxis: per hospitalists. Recommend OSMIN hose and SCDs. 6. Advised to watch for worsening pain, abnormal numbness/tingling, worsening change in ROM or strength, cramping in her calves or ankles and to seek immediate medical attention as she wishes per her end of care plan. Please call our office with any questions/concerns at [phone]. Patient seen/discussed in conjunction with Dr. Romeo. 08/25/18 08:27 Subjective: Ex- in room with patient, her MPOA. She is able to respond appropriately to command and is able to minimally respond to questions. She denies any numbness, tingling, worsening pain, cramping in her calves or ankles. Has been compliant in cervical collar, brace and is wearing her SCDs while in bed. Objective: Vital Signs Temp Pulse Resp BP Pulse Ox 36.5 C 74 19 154/74 H 99 08/25/18 07:33 08/25/18 07:33 08/25/18 07:33 08/25/18 07:33 08/25/18 07:33 Laboratory Results 08/25/18 04:25 08/25/18 04:25 08/24/18 08/25/18 08/26/18 05:59 05:59 05:59 Intake Total 1250 Output Total 550 Balance 700 PT 14.2 SEC (12.0-15.0) 08/24/18 07:10 INR 1.15 (0.83-1.16) 08/24/18 07:10 AO, NAD, non-labored breathing, no diaphoresis. Able to respond appropriately to command. Left hip is with minor edema and ecchymosis, intact Aquacel with no surrounding erythema, calor or abnormal bleeding, oozing or discharge. All compartments soft with mild tenderness over incision site. Left hip is shortened and externally rotated, to be expected at this time. ROM 0-100 with FROM distally and 5/5 strength distally in left foot/ankle. Calves soft/supple and NTTP b/l with negative b/l Homans. OSMIN hose not present but SCDs on and pumping b/l. Brisk cap refill b/l. Negative passive stretch b/l. Left wrist with chronic sub-acute ecchymosis throughout dorsum of wrist with no e/e/e/c otherwise noted. Mild TTP at CMC joint but otherwise NTTP throughout. No snuffbox tenderness. ROM: 60 WE, 75 WF, supination and pronation to 80. Able to make a full fist without difficulty and 5/5 anodize machine operator strength. DNVI b/l with no focal deficits noted. Brisk cap refill b/l. All compartments are soft with skin intact and no visible deformity. - Pending Discharge Pending Discharge Within 24 Hours: No ICD10 Worksheet Patient Problems: Problems Problem Status Onset Broken internal hip prosthesis Acute Cervical spine fracture Acute Abdominal pain Acute Abdominal pain Acute Acute respiratory failure Acute Altered mental status Acute Back pain Acute COPD (chronic obstructive pulmonary disease) Acute Chest discomfort Acute Chronic left hip pain Acute Chronic obstructive pulmonary disease with acute exacerbation Acute Complete heart block Acute Dyspnea Acute Dyspnea Acute Elevated troponin Acute Fall from ground level Acute Forehead contusion Acute Gastric ulcer with perforation Acute Generalized weakness Acute Hip dislocation, left Acute Hypoxemia Acute Nausea Acute Osteoporosis Acute Palliative care encounter Acute S/P hip replacement Acute Syncope Acute chronic disease mgmt/transitional care Acute
[2018-08-25] MEDS: CHOLECALCIFEROL VIT D3 2,000 UNITS TAB/CAP PO SCH ×2 (08:54→20:11)
[2018-08-25] MEDS: ASCORBIC ACID 500 MG TAB PO SCH ×2 (08:54→18:00)
[2018-08-25] MEDS: GABAPENTIN 300 MG CAP PO SCH ×2 (08:55→20:10)
[2018-08-25] MEDS: buPROPion XL 150 MG TAB PO SCH (08:55)
[2018-08-25] MEDS: CALCIUM CARBONATE 500 MG CHEWABLE TAB PO SCH (08:55)
[2018-08-25] MEDS: ACETAMINOPHEN 500 MG TAB PO SCH ×3 (08:56→23:40)
[2018-08-25] MEDS: PANTOPRAZOLE SODIUM 40 MG TAB PO SCH (08:58)
[2018-08-25] MEDS: LIDOCAINE 4%/MENTHOL 1% PATCH TD SCH (08:59)
[2018-08-25] MEDS: FLUTICASONE/SALMETER 500/50MCG DISKUS IH SCH ×2 (08:59→21:54)
[2018-08-25] MEDS: ENOXAPARIN 30 MG/0.3 ML SYR SC SCH (09:01)
[2018-08-25] MEDS: DIAZEPAM 5 MG TAB PO PRN ×2 (17:30→23:44)
[2018-08-25] MEDS: SENNOSIDES 1 TAB PO SCH (20:11)
[2018-08-25] MEDS: PATCH REMOVAL 1 EA PATCH TD SCH (20:22)
--- NOTE | 2018-08-25 20:45 | PDHOSCONS ---
History and Physical - Chief Complaint med management - History of Present Illness Asked by trauma service to assist in care for any medical issues. She was recently discharged from the [facility] after a prolonged stay because of complications of hip arthroplasty, chronic hip dislocation and infection. These direct reports are not available on [facility] at the time of consult due to the computer outage, but reportedly have been requested by fax. Apparently, it was recommended that she discharge to a SNF with hospice/ palliative care but she declined and wanted to go home to her dog. She slipped getting out of her bed early in the morning. She denied feeling dizzy or light headed prior to slipping. She denies fainting/loss of consciousness. She had immediate pain and couldn't move but was eventually able to call 911. She was brought to the emergency department and had multiple CT scans and x- rays. These showed new cervical fractures, recurrent hip dislocation. She was admitted to the hospital under the trauma service, Dr. Easley. History Information - Allergies/Home Medication List Allergies/Adverse Reactions: duloxetine HCl [From Cymbalta] Allergy (Severe, Verified 12/24/17 19:01) Vomiting Iodinated Contrast- Oral and IV Dye Allergy (Severe, Verified 12/24/17 19:01) Other-Enter Comments aspirin Allergy (Intermediate, Verified 12/24/17 19:01) stomach pain cephalexin monohydrate [From Keflex] Allergy (Intermediate, Verified 12/24/17 19 :01) Stomach Pain codeine [Codeine] Allergy (Intermediate, Verified 12/24/17 19:01) Nausea Vomiting hydrocodone bitartrate [From Vicodin] Allergy (Intermediate, Verified 12/24/17 19:01) Nausea Vomiting orphenadrine Allergy (Intermediate, Verified 12/24/17 19:01) Stomach pain tetracycline [Tetracycline] Allergy (Intermediate, Verified 12/24/17 19:01) Stomach Pain celecoxib Allergy (Unknown, Verified 12/24/17 19:01) Weight gain, Fatigue, Increased Pain ciprofloxacin Allergy (Unknown, Verified 12/24/17 19:01) clarithromycin Allergy (Unknown, Verified 12/24/17 19:01) Stomach Pain levofloxacin Allergy (Unknown, Verified 12/24/17 19:01) Swelling/neck,face,throat linezolid Allergy (Unknown, Verified 12/24/17 19:01) sulfamethoxazole Allergy (Unknown, Verified 12/24/17 19:01) Nausea Vomiting amoxicillin trihydrate [From Augmentin] Allergy (Verified 12/24/17 19:01) potassium clavulanate [From Augmentin] Allergy (Verified 12/24/17 19:01) shrimp Allergy (Verified 12/24/17 19:01) ORPHENGESIC Allergy (Intermediate, Uncoded 12/24/17 19:01) Stomach Pain Terpin hydrate Allergy (Intermediate, Uncoded 12/24/17 19:01) Stomach pain amoxicillin trihydrate Allergy (Unknown, Uncoded 12/24/17 19:01) cephalexin monohydrate Allergy (Unknown, Uncoded 12/24/17 19:01) Stomach Pain duloxetine HCl Allergy (Unknown, Uncoded 12/24/17 19:) Vomiting hydrocodone bitartrate Allergy (Unknown, Uncoded 12/24/17 19:01) Nausea Vomiting potassium clavulanate Allergy (Unknown, Uncoded 12/24/17 19:01) Home Medications: Ascorbic Acid [Vitamin C 500 mg (*)] 1,000 mg PO BIDMEAL 08/26/13 [Last Taken ] Calcium Carbonate [Tums 500MG (*)] 1,000 - 1,500 mg PO DAILY PRN 08/26/13 [Last Taken 12/24/17] Sennosides [Senokot] 3 each PO HS 08/26/13 [Last Taken 12/23/17] buPROPion XL [Wellbutrin 150mg XL] 300 mg PO DAILY 03/29/16 [Last Taken 12/24/17 ] diphenhydrAMINE [Benadryl 25 MG (*)] 25 mg PO HS 05/17/16 [Last Taken 12/23/17] Gabapentin [Neurontin 300 MG (*)] 600 mg PO BID 07/20/16 [Last Taken 12/24/17] Cholecalciferol Vit D3 [Vitamin D3 (*)] 2,000 units PO BID 08/11/16 [Last Taken 12/24/17] Ipratropium/Albuterol [Duoneb (*)] 3 ml IH QID PRN 08/11/16 [Last Taken 11/21/16 ] Levothyroxine [Synthroid 50 mcg (*)] 50 mcg PO DAILY06 09/24/16 [Last Taken 06/01] Fluticasone/Salmeter 500/50Mcg [Advair 500/50 (*)] 1 puffs IH BID 02/17/17 [ Last Taken 12/24/17] Dicyclomine [Bentyl 20 MG (*)] 20 mg PO QID PRN 08/06/17 [Last Taken 08/27/18] Albuterol [Proventil Inhaler HFA (*)] 1 - 2 puffs IH Q4H PRN 12/24/17 [Last Taken Unknown] Lidocaine 4%/Menthol 1% [Icy Hot Lidocaine/Menthol 4%/1% Patch (*)] 1 patch TD DAILY 08/24/18 [Last Taken Unknown] Magnesium Hydroxide [Milk of Magnesia] 5 - 15 ml PO QID PRN 08/24/18 [Last Taken Unknown] I have personally reviewed and updated: medical history (anemia, [place] [facility] [place] social history, surgical history - Past Medical History COPD Additional medical history: L hip PJI, MRSE - Surgical History Reports: pacemaker/AICD, spinal surgery Additional surgical history: Bilateral hip surgeries - Family History Additional family history: Unable to provide - Social History Smoking Status: Former smoker Alcohol Use: None Drug Use: None Review of Systems Review of Systems: Constitutional: Reports: weakness. Denies: fever EENMT: Denies: blurred vision, mouth pain, sore throat Cardiac: Denies: chest pain, lightheadedness, syncope Respiratory: Denies: cough, shortness of breath Gastrointestinal: Denies: vomitting, abdominal pain, abdominal distention, constipation, nausea Genitourinary: Denies: dysuria Muscolosketal: Reports: back pain, joint pain, muscle pain ('everything hurts') , neck pain Physical Exam Physical Exam: Temp Pulse Resp BP Pulse Ox 98.2 F 81 16 122/56 H 96 08/25/18 20:00 08/25/18 20:00 08/25/18 20:00 08/25/18 20:00 08/25/18 20:00 O2 (L/minute) 2 Constitutional: chronically ill appearing, uncomfortable, cachectic Eyes: anicteric sclera Ears, Nose, Mouth, Throat: moist mucous membranes, hearing normal, other (in neck brace) Cardiovascular: regular rate and rhythym, No edema Respiratory: no respiratory distress, no rales or rhonchi, reduced air movement Gastrointestinal: normoactive bowel sounds, soft, non-tender abdomen, No hepatosplenomegally, No guarding, No rebound, No distension Skin: warm Musculoskeletal: other (in neck brace, wrist splint) Neurologic: CN II-XII Intact (grossly) Psychiatric: interacting appropriately, anxious, poor insight, No not encephalopathic, No agitated Lab Data & Imaging Review 08/26/18 15:20 08/26/18 04:27 WBC 6.08 10^3/uL (3.80-9.50) 08/25/18 04:25 RBC 3.03 10^6/uL (4.18-5.33) L 08/25/18 04:25 Hgb 8.9 g/dL (12.6-16.3) L 08/25/18 04:25 Hct 29.4 % (38.0-47.0) L 08/25/18 04:25 MCV 97.0 fL (81.5-99.8) 08/25/18 04:25 MCH 29.4 pg (27.9-34.1) 08/25/18 04:25 MCHC 30.3 g/dL (32.4-36.7) L 08/25/18 04:25 RDW 14.8 % (11.5-15.2) 08/25/18 04:25 Plt Count 449 10^3/uL (150-400) H 08/25/18 04:25 MPV 8.4 fL (8.7-11.7) L 08/25/18 04:25 Neut % (Auto) 57.2 % (39.3-74.2) 08/25/18 04:25 Lymph % (Auto) 22.5 % (15.0-45.0) 08/25/18 04:25 Carver % (Auto) 11.7 % (4.5-13.0) 08/25/18 04:25 Eos % (Auto) 7.6 % (0.6-7.6) 08/25/18 04:25 Baso % (Auto) 0.7 % (0.3-1.7) 08/25/18 04:25 Nucleat RBC Rel Count 0.0 % (0.0-0.2) 08/25/18 04:25 Absolute Neuts (auto) 3.48 10^3/uL (1.70-6.50) 08/25/18 04:25 Absolute Lymphs (auto) 1.37 10^3/uL (1.00-3.00) 08/25/18 04:25 Absolute Monos (auto) 0.71 10^3/uL (0.30-0.80) 08/25/18 04:25 Absolute Eos (auto) 0.46 10^3/uL (0.03-0.40) H 08/25/18 04:25 Absolute Basos (auto) 0.04 10^3/uL (0.02-0.10) 08/25/18 04:25 Absolute Nucleated RBC 0.00 10^3/uL (0-0.01) 08/25/18 04:25 Immature Gran % 0.3 % (0.0-1.1) 08/25/18 04:25 Immature Gran # 0.02 10^3/uL (0.00-0.10) 08/25/18 04:25 PT 14.2 SEC (12.0-15.0) 08/24/18 07:10 INR 1.15 (0.83-1.16) 08/24/18 07:10 APTT 35.4 SEC (23.0-38.0) 08/24/18 07:10 Sodium 136 mEq/L (135-145) 08/25/18 04:25 Potassium 3.4 mEq/L (3.5-5.2) L 08/25/18 04:25 Chloride 103 mEq/L (97-110) 08/25/18 04:25 Carbon Dioxide 29 mEq/l (22-31) 08/25/18 04:25 Anion Gap 4 mEq/L (6-14) L 08/25/18 04:25 BUN 5 mg/dL (7-23) L 08/25/18 04:25 Creatinine 0.4 mg/dL (0.6-1.0) L 08/25/18 04:25 Estimated GFR > 60 08/25/18 04:25 Glucose 68 mg/dL (70-100) L 08/25/18 04:25 Calcium 8.6 mg/dL (8.5-10.4) 08/25/18 04:25 POC Troponin I 0.00 ng/mL (0.00-0.08) 08/24/18 07:51 Urine Color SAVANNA 08/24/18 07:45 Urine Appearance HAZY 08/24/18 07:45 Urine pH 7.0 (5.0-7.5) 08/24/18 07:45 Ur Specific [place] 1.011 (1.002-1.030) 08/24/18 07:45 Urine Protein NEGATIVE (NEGATIVE) 08/24/18 07:45 Urine Ketones NEGATIVE (NEGATIVE) 08/24/18 07:45 Urine Blood 1+ (NEGATIVE) H 08/24/18 07:45 Urine Nitrate NEGATIVE (NEGATIVE) 08/24/18 07:45 Urine Bilirubin NEGATIVE (NEGATIVE) 08/24/18 07:45 Urine Urobilinogen NEGATIVE EU (0.2-1.0) 08/24/18 07:45 Ur Leukocyte Esterase TRACE (NEGATIVE) H 08/24/18 07:45 Urine RBC 5-10 /hpf (0-3) H 08/24/18 07:45 Urine WBC 5-10 /hpf (0-3) H 08/24/18 07:45 Ur Epithelial Cells TRACE /lpf (NONE-1+) 08/24/18 07:45 Urine Mucus TRACE /lpf (NONE-1+) 08/24/18 07:45 Urine Glucose NEGATIVE (NEGATIVE) 08/24/18 07:45 Visualized and Interpreted Chest x-ray results: Yes Chest X-Ray results: no infiltrate Visualized and Interpreted EKG results: Yes Assessment & Plan Assessment: 82F admitted to trauma service after falling at home 1. 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 (discharged 04/2019). -At , prior to discharge and per Dr Frank's report to Dr Romeo, an extensive, multidisciplinary counseling was performed, including an ethics committee ruling, and it was determined that Tahira would be discharged to hospice and palliative care. She decided against any further surgery, and agreed with the plan. 2. s/p mechanical fall at home, now with new cervical fractures and L wrist sprain -discussed with NeuroSurg -in C collar -in wrist splint (repeat xray in a week) -per trauma service -PT/OT as able -needs SNF as doubt will be able to care for herself at home/no local family other than ex (daughter lives out of state) 3. Depression -home meds 4. Anemia -hgb 8.9 -watch closely (but likely chronic, await [facility] records) 5. HypoK -replace orally, check in AM 6. Abnl UA -cx with no dominant organism -repeat UA/cx ordered 7. Hypothyroid -last tsh in good range 12/2017 -home dose PCP- Dr Gutierrez Reyes DVT prophy- SCDs, TEDs per ortho. Lovenox ordered by Trauma FULL CODE (ex is MD MIRZA per report, their daughter lives in [facility], no other family here) Dispo- >48 hours inpt for pain control, is agreeable to short term rehab and CM will assist
[2018-08-25] MEDS ORDERED: POTASSIUM CL 20 MEQ/15 ML UDCUP PO ONE (21:01)
[2018-08-25] MEDS: diphenhydrAMINE 25 MG CAP PO PRN (21:52)
[2018-08-26] MEDS: HYDROmorphONE/DILAUDID 2 MG TAB PO PRN ×5 (02:05→23:24)
[2018-08-26 05:45] LABS: PLATELET COUNT 465 10^3/uL (150-400)
[2018-08-26] MEDS: LEVOTHYROXINE 50 MCG TAB PO SCH (05:46)
--- NOTE | 2018-08-26 07:28 | NEUSURGPN ---
Assessment/Plan: Assessment: 82 yo F with right C5 and C6 facet fracture after fall Plan: -neuro: stable -hard collar to be worn at all times for 8-12 weeks -Dr Dill reviewed the images recommend collar at all times and follow up in 6 weeks with xrays -continue with PT/OT -upright x-rays in collar ok per Dr Dill -ok to discharge to SNF when cleared by Trauma -follow up with Dr Dill in 6 weeks with repeat x-rays of cervical spine -please call with neuro changes -patient seen by Dr Dill at 6:55 this am -call with any questions or concerns Subjective: Awake and alert. NAD. No new complaints or concerns. Updates from RN Objective: AAOx4, +FC PERRLA, EOMI, no facial droop 5/5 + light touch hard collar in place Neuro Check Frequency: per routine Urinary Catheter in Place: No - Physician Discussed Patient with : Fuentes Patient Seen by : Fuentes Neurosurgery Physical Exam - Vitals, I&O, Labs I and O 08/25/18 08/26/18 08/27/18 05:59 05:59 05:59 Intake Total 1250 Output Total 550 850 Balance 700 -850 Weight 42.184 kg Intake: Oral (ml) 250 IV Infused (ml) 1000 Output: Urine (ml) 550 850 Bedpan 550 850 Other: Intake Quantity No Sufficient Output Comment Bedpan stool looked redish brown Number of Voids Bedpan 1 1 Incontinence 1 Number of Stools Bedpan 1 1 Vital Signs Temp Pulse Resp BP Pulse Ox 36.8 C 68 16 122/46 H 98 08/26/18 00:00 08/26/18 04:00 08/26/18 04:00 08/26/18 00:00 08/26/18 04:00 Laboratory Results 08/26/18 04:27 08/26/18 04:27 ICD10 Worksheet Patient Problems: Problems Problem Status Onset Broken internal hip prosthesis Acute Cervical spine fracture Acute Abdominal pain Acute Abdominal pain Acute Acute respiratory failure Acute Altered mental status Acute Back pain Acute COPD (chronic obstructive pulmonary disease) Acute Chest discomfort Acute Chronic left hip pain Acute Chronic obstructive pulmonary disease with acute exacerbation Acute Complete heart block Acute Dyspnea Acute Dyspnea Acute Elevated troponin Acute Fall from ground level Acute Forehead contusion Acute Gastric ulcer with perforation Acute Generalized weakness Acute Hip dislocation, left Acute Hypoxemia Acute Nausea Acute Osteoporosis Acute Palliative care encounter Acute S/P hip replacement Acute Syncope Acute chronic disease mgmt/transitional care Acute
[2018-08-26] MEDS: CHOLECALCIFEROL VIT D3 2,000 UNITS TAB/CAP PO SCH ×2 (08:10→20:57)
[2018-08-26] MEDS: ASCORBIC ACID 500 MG TAB PO SCH ×2 (08:10→17:02)
[2018-08-26] MEDS: CALCIUM CARBONATE 500 MG CHEWABLE TAB PO SCH (08:10)
[2018-08-26] MEDS: PANTOPRAZOLE SODIUM 40 MG TAB PO SCH (08:10)
[2018-08-26] MEDS: buPROPion XL 150 MG TAB PO SCH (08:10)
[2018-08-26] MEDS: ENOXAPARIN 30 MG/0.3 ML SYR SC SCH (08:12)
[2018-08-26] MEDS: LIDOCAINE 4%/MENTHOL 1% PATCH TD SCH (08:13)
[2018-08-26] MEDS: ACETAMINOPHEN 500 MG TAB PO SCH ×3 (08:13→23:24)
[2018-08-26] MEDS: GABAPENTIN 300 MG CAP PO SCH ×2 (08:13→20:57)
[2018-08-26] MEDS: FLUTICASONE/SALMETER 500/50MCG DISKUS IH SCH ×2 (08:15→21:44)
--- NOTE | 2018-08-26 15:19 | SOAPPROG ---
STEWAP Progress Note Assessment/Plan: Assessment: Complex left hip history now with salvage bipolar hemiarthroplasty with dislocation, however, this is her expected position and has been deemed her final result by her long-standing arthroplasty surgeon at [facility] in [place], Dr. Frank. Left wrist pain, unlikely represents an acute fracture, and more likely is a sprain or exacerbation of her OA. She was discharged from [facility] two nights ago with a hospice plan in place. Once she is deemed stable and appropriate for discharge with regard to her cervical injury, she is OK for discharge from an orthopaedic standpoint. Plan: 1. WBAT LLE with posterior hip precautions. Position of comfort. Maintain Aquacel. F/U care of left hip fx should be followed up at [facility] by Dr. Frank, though we are happy to assist in her care as needed. 2. Left wrist: NWB and maintain velcro splint to be conservative, and we will repeat XRs in 1 week, if her disposition plan and overall end of life care plan allows it. 3. RICE and ice massage prn. 4. Pain control: Per hospitalists PO analgesics prn. 5. VTE prophylaxis: per hospitalists. Recommend OSMIN hose and SCDs. I have placed new OSMIN hose on her at this time. 6. Advised to watch for worsening pain, abnormal numbness/tingling, worsening change in ROM or strength, cramping in her calves or ankles and to seek immediate medical attention as she wishes per her end of care plan. Please call our office with any questions/concerns at [phone]. 7. Ok to D/C once cleared by CM, hospitalists, trauma, neuro. Patient seen/discussed in conjunction with Dr. Romeo. 08/26/18 15:16 08/26/18 15:19 Subjective: Ex- in room with patient, her MPOA. She is able to respond appropriately to command and is able to minimally respond to questions. She denies any numbness, tingling, worsening pain, cramping in her calves or ankles. Has been compliant in cervical collar, brace and is wearing her OSMIN hose while in bed; no SCDs present. Objective: Vital Signs Temp Pulse Resp BP Pulse Ox 37.2 C 74 15 133/68 H 95 08/26/18 07:55 08/26/18 07:55 08/26/18 07:55 08/26/18 07:55 08/26/18 07:55 Laboratory Results 08/26/18 04:27 08/26/18 04:27 08/25/18 08/26/18 08/27/18 05:59 05:59 05:59 Intake Total 1250 Output Total 550 850 Balance 700 -850 PT 14.2 SEC (12.0-15.0) 08/24/18 07:10 INR 1.15 (0.83-1.16) 08/24/18 07:10 AO, NAD, non-labored breathing, no diaphoresis. Able to respond appropriately to command. Left hip is with minor edema and ecchymosis, intact Aquacel with no surrounding erythema, calor or abnormal bleeding, oozing or discharge. All compartments soft with mild tenderness over incision site. Left hip is shortened and externally rotated, to be expected at this time. ROM 0-100 with FROM distally and 5/5 strength distally in left foot/ankle. Calves soft/supple and NTTP b/l with negative b/l Homans. OSMIN hose are now present but SCDs are not on nor pumping b/l. Brisk cap refill b/l. Negative passive stretch b/l. Left wrist with chronic sub-acute ecchymosis throughout dorsum of wrist with no e/e/e/c otherwise noted. Mild TTP at CMC joint but otherwise NTTP throughout. No snuffbox tenderness. ROM: 60 WE, 75 WF, supination and pronation to 80. Able to make a full fist without difficulty and 5/5 fast food server strength. DNVI b/l with no focal deficits noted. Brisk cap refill b/l. All compartments are soft with skin intact and no visible deformity. - Pending Discharge Pending Discharge Within 48 Hours: Yes Pending Discharge Date: 08/28/18 Pending Discharge Time: 11:00 ICD10 Worksheet Patient Problems: Problems Problem Status Onset Broken internal hip prosthesis Acute Cervical spine fracture Acute Abdominal pain Acute Abdominal pain Acute Acute respiratory failure Acute Altered mental status Acute Back pain Acute COPD (chronic obstructive pulmonary disease) Acute Chest discomfort Acute Chronic left hip pain Acute Chronic obstructive pulmonary disease with acute exacerbation Acute Complete heart block Acute Dyspnea Acute Dyspnea Acute Elevated troponin Acute Fall from ground level Acute Forehead contusion Acute Gastric ulcer with perforation Acute Generalized weakness Acute Hip dislocation, left Acute Hypoxemia Acute Nausea Acute Osteoporosis Acute Palliative care encounter Acute S/P hip replacement Acute Syncope Acute chronic disease mgmt/transitional care Acute
--- NOTE | 2018-08-26 15:35 | TRAUMAPN ---
Trauma Progress Note Assessment/Plan: 08/26/2018 PAD#2 Assessment: Please see dr. Liz's palliative care consult. Dr. Romeo's evaluation of the left shoulder has been completed. He feels that it is a sprain and that it is resolving. Neurosurgery's input appreciated. She does have a sacral decubitus. Plan: Nothing further to add. Will transfer to hospitalist service. They accept. Subjective: Pain controlled Objective: Vital Signs Temp Pulse Resp BP Pulse Ox 37.2 C 74 15 133/68 H 95 08/26/18 07:55 08/26/18 07:55 08/26/18 07:55 08/26/18 07:55 08/26/18 07:55 Laboratory Results 08/26/18 04:27 08/25/18 08/26/18 08/27/18 05:59 05:59 05:59 Intake Total 1250 Output Total 550 850 Balance 700 -850 PT 14.2 SEC (12.0-15.0) 08/24/18 07:10 INR 1.15 (0.83-1.16) 08/24/18 07:10 - C-Spine Clearance Cervical Spine Cleared: No
--- NOTE | 2018-08-26 16:11 | ASMTCMCOM ---
CM Note CM Note Notes: Pt [facility] worker [place] ([phone]) reports reports pt has unskilled care with [facility] 7 days/wk 3 hrs/day and skilled care with [facility] RN. [facility] palliative MD meeting scheduled with pt and LEONARDO Alva at 1430. This morning pt and Artie asked for SNF list which was provided. Artie states pt has been to [facility] and [facility] SNFs in the past. Artie reports he does not drive so it is important to him pt go to a [place] SNF if she wants a SNF d/c. While pt is supported in the community by [facility] it may not be enough care to go home safely. Pt reports neither she nor friends/family has resources for any additional are which would be private pay. Dr. Liz met with pt and Artie for palliative this afternoon. Pt wants to go to a SNF for a week and then d/c home with [facility]. Pt requests referrals to [facility], [facility] and [facility]. Referrals sent in [employer], pt PASRR does not trigger. D/c plan of care: SNF, which SNF is TBD Date Signed: 08/26/2018 04:09 PM Electronically Signed By:CORI Harris
--- NOTE | 2018-08-26 17:31 | WOCRNPDOC ---
WOCRN Advanced Assessment Note - Skin Integrity Problem, Advanced Assess Coccyx Pressure Injury Dressing Type: Open to Air Integumentary Issue Intervention: Dressing Applied Wound Bed Color: [place], Red, Yellow Wound Bed Constitution: Granulation Tissue, Red/[place] - Non Granular Tissue Wound Edges: Attached Site Measurement - Head-to-Toe Length X Width X Depth (cm): 1.8x2.5x0.1 Pressure Injury Stage: Stage 3 Pressure Injury Present on Admit: Yes Skin Integrity Problem Comment: Cleaned the area with ns and gauze. Irregular shaped area of full thickness mixed granular and nongranular tissue. Wound gel applied to open wound bed and covered with Mepilex border sacrum dressing. No concerns, wound doing well. Wound care will follow. RN's Rogerio and Christine in room for care. Left Lower Sacrum Pressure Injury Dressing Type: Open to Air Integumentary Issue Intervention: Dressing Applied Wound Bed Color: [place] Wound Edges: Epithelizing Site Measurement - Head-to-Toe Length X Width X Depth (cm): 1x1.3x0.1 Pressure Injury Stage: Stage 2 Pressure Injury Present on Admit: Yes Skin Integrity Problem Comment: Cleaned with ns and gauze. Wound gel applied. Wound care will follow. Right Posterior Illiac Crest Pressure Injury Dressing Type: [employer]levKod[employer] Alaris Life Dressing Description: Clean/Dry, Intact Integumentary Issue Intervention: Dressing Changed Chandrika Wound Tissue: Scarred Wound Bed Color: [place] Pressure Injury Stage: Stage 2 Pressure Injury Present on Admit: Yes Skin Integrity Problem Comment: Irregular shaped wound on R sacroiliac crest. Healing with pigmented staining along sacrolilliac margin from previous open areas that have healed. The wound is now partial thickness, but there is a high likelyhood that it was a full thickness wound. It is chronic and old with multiple openings/reopenings as evidenced by scar/pigmented surrounding areas. There is likely friction involved with the injury as well. No sign of infection. No concerns. Will initiated moist wound healing and padding with foam dressings. Wound care will follow. Christine HARRISON and Rogerio MORIN in room for care.
--- NOTE | 2018-08-26 19:12 | GCON ---
[f rep st] CONSULTATION PALLIATIVE CARE CONSULT DATE OF CONSULTATION: 08/26/2018 CHIEF COMPLAINT: Dr. Rolo Easley requests goals of care conversation. HISTORY OF PRESENT ILLNESS: This is an 82-year-old woman who has a very complex medical history including bilateral hip surgeries with multiple revisions of the left hip. 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 She has been on doxycycline 100 mg p.o. twice daily. She had been counseled to go to rehabilitation from the [facility]; however, she declined. She was very intent on being able to maintain her privacy as well as live with her dog, named Cuddles. Unfortunately, the night she went home she was attempting to get out of bed to her commode, and she fell on her "butt." She managed to grab the phone cord and eventually called 911. She was found to have C5 and C6 facet fractures and will need to be in a hard collar for 8-12 weeks. This should be worn at all times for a minimum of 6 weeks, when she should follow up with Neurosurgery for repeat films to determine if her precautions can be minimally liberalized. With regard to her hip, she has been deemed appropriate to be weightbearing as tolerated on the left lower extremity. In talking about what is most important to the patient, she again reiterates to me, as she did to the palliative care team at [facility], that her privacy is the most important and to be with her dog. When I asked her if she has reconsidered the possibility of having the complex surgery that had been recommended at [facility], she replies "I am 82 years old. I can't have another surgery. It'll kill me. I've got things to do, even if it's only another year." In addition, she feels given the number of surgeries she has already had on that leg, there is no guarantee of success. We had a prolonged discussion about her options for care. She remains adamant in going back to her home, even though there are 19 stairs and she does not have 24 hour a day care. I share with her that the safest plan is to go to a long-term care facility. However, she would not be able to be with her dog, and so that is not an option she will consider. With regard to rehabilitation, after a prolonged discussion, she is agreeable to try it for at least a week. She recognizes that in order to decrease the likelihood of another fall with further fractures, this is the most prudent course of action. She continues to have pain all over her body. She especially notes it in her tailbone right now , and she has been told that she is likely developing a pressure injury around her sacrum. She also has pain in her left shoulder, which she attributes to the fall. She feels her left hip pain is "not that much." She also has right rib pain after her fall. She has a hairline fracture there per her ex-' s report. She shares with me that around 3-1/2 years ago she weighed over 200 pounds. She currently weighs only 97 pounds. When I discussed with her options of care, I also bring up hospice. She is interested in this as it would give her more support at home and help her avoid repeated hospitalizations. I also make attempts to discuss her resuscitation preferences. Unfortunately, initiation of this conversation causes the patient to experience a pain crisis, and until the conversation is changed, her pain remains escalated. With regard to having 24-hour care at home, the patient suggests her ex- could live with her. The 3 of us then have a conversation surrounding this option. Eventually, he is agreeable to do it for a time-limited trial. He recognizes that her care needs are greatest at night, as she does have support from Medicaid in-home supportive services for brief periods during the day at this time. REVIEW OF SYSTEMS: She currently denies problems breathing or nausea or constipation. She does have a poor appetite. She has diffuse pain all over. She remains weak. PAST MEDICAL HISTORY: Per review of medical records includes: pacemaker placement for sick sinus syndrome, COPD, hypertension, and hypothyroidism. SOCIAL HISTORY: She is . She wishes to have attempts made at resuscitation. Her ex- is her medical power of assistant attorney general. She has 2 children (one with her ex- Artie and one from a previous marriage). FAMILY HISTORY: Per medical records, as previously documented. CURRENT MEDICATIONS: Include: 1. Tylenol 1 g every 8 hours around the clock. 2. Albuterol inhaler every 4 hours as needed. 3. DuoNebs 4 times daily as needed. 4. Vitamin C 1000 mg twice daily. 5. Wellbutrin XL 300 mg daily. 6. Tums 1000 to 1500 mg daily, scheduled. 7. Vitamin D 2000 units twice daily. 8. Valium 2.5 to 5 mg every 6 hours as needed. 9. Benadryl 25 mg at bedtime as needed for sleep. 10. Doxycycline 100 mg twice daily. 11. Lovenox 30 mg subcutaneously daily. 12. Neurontin 600 mg twice daily. 13. Dilaudid 0.5 mg every 4 hours as needed. 14. Dilaudid 2 to 4 mg by mouth every 4 hours as needed. 15. Levothyroxine 50 mcg daily. 16. Milk of magnesia as needed for constipation. 17. Zofran 4 mg IV push every 4 hours as needed. 18. Protonix 40 mg p.o. daily, scheduled. 19. Advair 1 puff twice daily. 20. Senna 3 tablets by mouth at bedtime. ALLERGIES: Extensive and include amoxicillin, Augmentin, cephalexin, Biaxin, clarithromycin, Celebrex, ciprofloxacin, clindamycin, duloxetine, levofloxacin, Septra, sulfa, codeine, shellfish-containing products, and Vicodin. PHYSICAL EXAM: VITAL SIGNS: Physical exam shows a blood pressure of 127/60, a heart rate of 94, a respiratory rate of 17. She is currently saturating 96% on 4 L nasal cannula. She is chronically oxygen dependent. She is afebrile with a temperature of 37.3 degrees Celsius. GENERAL: She is alert and oriented x3. No apparent distress except when discussing her resuscitation preferences. Overall appropriate affect and level of understanding. HEENT: She has significant temporal wasting. There is no icterus. Hearing is intact. NECK: Brace in place. CARDIOVASCULAR: Regular rate and rhythm with intact radial and pedal pulses bilaterally. RESPIRATORY: Anterior auscultation only. Lung gutiérrez are clear. Adequate effort and expansion. ABDOMEN: Positive bowel sounds. Soft, nontender, and nondistended. MUSCULOSKELETAL: She is able to move all extremities independently. There are no obvious joint effusions. She has a brace on her left wrist. NEUROLOGIC: Cranial nerves 2-12 are grossly intact. SIGNIFICANT LABORATORY DATA: Her hemoglobin is 8.3, and her hematocrit is 27.1. A recent urine culture showed 3 separate gram-negative rods. IMAGING: Recent imaging showed fractures of C5 and C6. ASSESSMENT AND PLAN: The patient is an 82-year-old woman with progressive frailty. She also suffers from a chronic infection of her left hip. She has chronic pain and likely severe osteoporosis given her multiple fractures that occurred from a fall from her bed. 1. Goals of care. In discussing with the patient that privacy and her dog are the most important things to her, we also discussed hospice. While I did recommend to her that the safest plan of care for her would be to live in a snf facility, this is unacceptable to her. She does recognize that she needs to attempt to get stronger to minimize the risk of further fractures and falls. She is agreeable to go to rehabilitation for 1 week with that aim in mind. While she is at rehabilitation, I will visit her again and bring a nurse to further discuss hospice enrollment. While today she did state she wanted hospice, I believe she might change her mind. Regardless, she will be followed by Palliative Care with [facility], if she does not enroll in hospice. In order to help her be as safe as possible in an independent living situation, her ex- is willing to start spending more time living with her, especially during the night. 2. consulting services project manager. I have let the patient know I will confirm that her unskilled in-home supportive services through Medicaid can continue. I did explain that she would likely need to have a hospice nurse do what her home health RN has been doing up until this point. In addition, I explained that with hospice, she could not have physical therapy or occupational therapy. I did stress that with hospice, she would have greater attention to pain management. I also explained that in order to qualify for hospice, she would have to have a life expectancy of 6 months or less. Based on her frailty, weight loss, and chronic osteomyelitis of her left hip, she does have a life expectancy of 6 months or less and could qualify for hospice. I stressed that this estimate was only an estimate. Some people live longer than 6 months, some live shorter. She continues to struggle to accept her limited life expectancy, but is interested in pursuing hospice services. 3. Chronic osteomyelitis. Dr. Easley has written to resume her doxycycline. I discussed with the patient the probability of the development of antibiotic resistance. Should that occur, given her list of allergies, options for further treatment would be very limited. Please note that approximately 2 hours were spent in this consult including chart review and prolonged conversation with the patient, helping her identify her goals of care and developing a plan of care. She will need further followup to discuss her resuscitation preferences as she is willing. I did assure her that she could continue to wish for attempts at resuscitation while on hospice. /[id number]/MODL MTDD
--- NOTE | 2018-08-26 19:26 | HOSPPROG ---
Hospitalist Progress Note Assessment/Plan: 82F admitted to trauma service after falling at home 1. s/p L BROOKS and complications (established patient of Dr Mike Frank MD at [facility]) -infection requiring explantation of components and revision of components over the past 5+ years -s/p revision hip surgery, resulting in a salvage procedure of bipolar hemiarthroplasty and acetabular explantation at [facility] (discharged 04/2019). -At , prior to discharge and per Dr Frank's report to Dr Romeo an extensive, multidisciplinary counseling was performed, including an ethics committee ruling, and it was determined that she would be discharged to hospice and palliative care. She decided against any further surgery, and agreed with the plan. -no records from [facility] in chart, will check [facility] 2. s/p mechanical fall at home, now with new cervical fractures and L wrist sprain -discussed with NeuroSurg -in C collar and wrist splint 3. Depression -home med 4. Anemia -watch closely for stability 5. HypoK, resolved 6. Abnl UA -cx with no dominant organism -repeat UA/cx ordered 7. Hypothyroid -last tsh in good range 12/2017 -home dose 8. Thrombocytosis -<500K 9. Pacer in place PCP- Dr Gutierrez Reyes DVT prophy- SCDs, TEDs per ortho. Lovenox ordered by Trauma FULL CODE (ex is MD MIRZA per report, their daughter lives in [facility], no other family here) Dispo-possible discharge tomorrow, is agreeable to short term rehab and CM will assist Subjective: Says pain OK. No n/v/d/sob/cp. Ex in room. Objective: Vital Signs Temp Pulse Resp BP Pulse Ox 99.2 F 94 17 127/60 H 96 08/26/18 15:38 08/26/18 15:38 08/26/18 15:38 08/26/18 15:38 08/26/18 15:38 Laboratory Results 08/26/18 15:20 08/26/18 04:27 08/25/18 08/26/18 08/27/18 11:59 11:59 11:59 Intake Total 1250 Output Total 550 850 Balance 700 -850 PT 14.2 SEC (12.0-15.0) 08/24/18 07:10 INR 1.15 (0.83-1.16) 08/24/18 07:10 - Time Spent With Patient Time Spent with Patient: greater than 35 minutes (total floor time) Time Spent with Patient: Greater than 35 minutes spent on this patients care, greater than 50% of time spent counseling, educating, and coordinating care regarding the above mentioned plan. - Physical Exam Constitutional: no apparent distress, other (thin) Eyes: anicteric sclera, EOMI Ears, Nose, Mouth, Throat: moist mucous membranes, hearing normal Cardiovascular: regular rate and rhythym, No edema Respiratory: no respiratory distress, no rales or rhonchi, clear to auscultation (but decreased throughout) Gastrointestinal: normoactive bowel sounds, soft, non-tender abdomen, No guarding, No rebound, No distension Skin: warm Psychiatric: interacting appropriately, not anxious, not encephalopathic ICD10 Worksheet Patient Problems: Problems Problem Status Onset Cervical spine fracture Acute Frequent falls Acute Neck pain Acute Abdominal pain Acute Abdominal pain Acute Acute respiratory failure Acute Altered mental status Acute Back pain Acute Broken internal hip prosthesis Acute COPD (chronic obstructive pulmonary disease) Acute Chest discomfort Acute Chronic left hip pain Acute Chronic obstructive pulmonary disease with acute exacerbation Acute Complete heart block Acute Dyspnea Acute Dyspnea Acute Elevated troponin Acute Fall from ground level Acute Forehead contusion Acute Gastric ulcer with perforation Acute Generalized weakness Acute Hip dislocation, left Acute Hypoxemia Acute Nausea Acute Osteoporosis Acute Palliative care encounter Acute S/P hip replacement Acute Syncope Acute chronic disease mgmt/transitional care Acute
[2018-08-26] MEDS ORDERED: POLYETHYLENE GLYCOL 3350 17 GM PKT PO PRN (19:50)
[2018-08-26] MEDS ORDERED: LACTULOSE 20 GM/30 ML UDCUP PO PRN (19:50)
[2018-08-26] MEDS ORDERED: BISACODYL 10 MG SUPP PR PRN (19:50)
[2018-08-26] MEDS ORDERED: DIAZEPAM 5 MG TAB PO PRN (19:51)
[2018-08-26] MEDS: diphenhydrAMINE 25 MG CAP PO PRN (20:57)
[2018-08-26] MEDS: SENNOSIDES 1 TAB PO SCH (20:57)
[2018-08-26] MEDS: DOXYCYCLINE HYCLATE 100 MG CAP/TAB PO SCH (20:57)
[2018-08-26] MEDS: PATCH REMOVAL 1 EA PATCH TD SCH (20:58)
[2018-08-26] MEDS ORDERED: ONDANSETRON DISINTEGRATING 4 MG TAB PO PRN (22:23)
[2018-08-26] MEDS ORDERED: METHOCARBAMOL 750 MG TAB ONE (23:37)
[2018-08-27] MEDS: HYDROmorphONE/DILAUDID 2 MG TAB PO PRN ×3 (05:29→13:29)
[2018-08-27] MEDS: LEVOTHYROXINE 50 MCG TAB PO SCH (05:29)
[2018-08-27 08:40] VITALS: BP 126/54
[2018-08-27] MEDS: ACETAMINOPHEN 500 MG TAB PO SCH (09:19)
[2018-08-27] MEDS: GABAPENTIN 300 MG CAP PO SCH (09:20)
[2018-08-27] MEDS: DOXYCYCLINE HYCLATE 100 MG CAP/TAB PO SCH (09:20)
[2018-08-27] MEDS: CHOLECALCIFEROL VIT D3 2,000 UNITS TAB/CAP PO SCH (09:20)
[2018-08-27] MEDS: buPROPion XL 150 MG TAB PO SCH (09:21)
[2018-08-27] MEDS: PANTOPRAZOLE SODIUM 40 MG TAB PO SCH (09:21)
[2018-08-27] MEDS: ASCORBIC ACID 500 MG TAB PO SCH (09:21)
[2018-08-27] MEDS: ENOXAPARIN 30 MG/0.3 ML SYR SC SCH (09:22)
[2018-08-27] MEDS: CALCIUM CARBONATE 500 MG CHEWABLE TAB PO SCH ×2 (09:22→13:32)
[2018-08-27] MEDS: LIDOCAINE 4%/MENTHOL 1% PATCH TD SCH (09:22)
[2018-08-27] MEDS: FLUTICASONE/SALMETER 500/50MCG DISKUS IH SCH (10:08)
--- NOTE | 2018-08-27 12:39 | SOAPPROG ---
ANDRES Progress Note Assessment/Plan: Assessment: Complex left hip history now with salvage bipolar hemiarthroplasty with dislocation, however, this is her expected position and has been deemed her final result by her long-standing arthroplasty surgeon at [facility] in [place], Dr. Frank. Left wrist pain, unlikely represents an acute fracture, and more likely is a sprain or exacerbation of her OA. Left shoulder: minimal pain at this time. Continue conservative care. She was discharged from [facility] 3 nights ago with a hospice plan in place. Once she is deemed stable and appropriate for discharge with regard to her cervical injury, she is OK for discharge from an orthopaedic standpoint. Plan: 1. WBAT LLE with posterior hip precautions. Position of comfort. Maintain Aquacel. F/U care of left hip fx should be followed up at [facility] by Dr. Frank, though we are happy to assist in her care as needed. 2. Left wrist: NWB and maintain velcro splint to be conservative, and we will repeat XRs in 1 week, if her disposition plan and overall end of life care plan allows it. No heavy lifting. 3. Left shoulder: Continue rest, ice, ice massage prn and ROM exercises. No heavy lifting. We will need additional repeat XRs in 1 week for her shoulder. 3. RICE and ice massage prn. 4. Pain control: Per hospitalists PO analgesics prn. 5. VTE prophylaxis: per hospitalists. Recommend OSMIN hose and SCDs. I have placed new OSMIN hose on her at this time. 6. Advised to watch for worsening pain, abnormal numbness/tingling, worsening change in ROM or strength, cramping in her calves or ankles and to seek immediate medical attention as she wishes per her end of care plan. Please call our office with any questions/concerns at [phone]. 7. Ok to D/C once cleared by CM, hospitalists, trauma, neuro. Patient seen/discussed in conjunction with Dr. Romeo. 08/27/18 12:44 Subjective: Alone in her room this am. She is able to respond appropriately to command and is able to respond to questions. She denies any numbness, tingling, worsening pain, cramping in her calves or ankles. Pain well controlled at this time. Passing flatus. Has been compliant in cervical collar, brace on left wrist and is wearing her OSMIN hose while in bed; no SCDs are present. Objective: Vital Signs Temp Pulse Resp BP Pulse Ox 36.7 C 69 14 126/54 H 98 08/27/18 08:00 08/27/18 10:09 08/27/18 10:09 08/27/18 08:00 08/27/18 10:09 Laboratory Results 08/26/18 15:20 08/26/18 04:27 08/26/18 08/27/18 08/28/18 05:59 05:59 05:59 Intake Total 500 240 Output Total 850 1425 Balance -850 -925 240 PT 14.2 SEC (12.0-15.0) 08/24/18 07:10 INR 1.15 (0.83-1.16) 08/24/18 07:10 AO, NAD, non-labored breathing, no diaphoresis. Able to respond appropriately to command. Left hip is with minor edema and ecchymosis, intact Aquacel with no surrounding erythema, calor or abnormal bleeding, oozing or discharge. All compartments soft with mild tenderness over incision site. Left hip is shortened and externally rotated, to be expected at this time. ROM 0-100 with FROM distally and 5/5 strength distally in left foot/ankle. Calves soft/supple and NTTP b/l with negative b/l Homans. OSMIN hose are now present but SCDs are not on nor pumping b/l. Brisk cap refill b/l. Negative passive stretch b/l. Left wrist with chronic sub-acute ecchymosis throughout dorsum of wrist with no e/e/e/c otherwise noted. Mild TTP at CMC joint but otherwise NTTP throughout. No snuffbox tenderness. ROM: 60 WE, 75 WF, supination and pronation to 80. Able to make a full fist without difficulty and 5/5 grain packer strength. DNVI b/l with no focal deficits noted. Brisk cap refill b/l. All compartments are soft with skin intact and no visible deformity. Left shoulder: No erythema, edema, ecchymosis, calor, deformity or skin breakthrough. Mild TTP over anterior aspect of shoulder. AROM FE to 120, ER to 30, IR to hip; PROM FE to 150, ER to 60 limited by minor pain, IR to SI. RTC strength: 4/5 throughout, symmetric to opposite side. DNPENG STEWART. ICD10 Worksheet Patient Problems: Problems Problem Status Onset Broken internal hip prosthesis Acute Cervical spine fracture Acute Abdominal pain Acute Abdominal pain Acute Acute respiratory failure Acute Altered mental status Acute Back pain Acute COPD (chronic obstructive pulmonary disease) Acute Chest discomfort Acute Chronic left hip pain Acute Chronic obstructive pulmonary disease with acute exacerbation Acute Complete heart block Acute Dyspnea Acute Dyspnea Acute Elevated troponin Acute Fall from ground level Acute Forehead contusion Acute Gastric ulcer with perforation Acute Generalized weakness Acute Hip dislocation, left Acute Hypoxemia Acute Nausea Acute Osteoporosis Acute Palliative care encounter Acute S/P hip replacement Acute Syncope Acute chronic disease mgmt/transitional care Acute
--- NOTE | 2018-08-27 14:27 | PDIAF ---
- Diagnosis Code Status: Full Code - Medication Management Group Home Antibiotics: doxycycline PO bid for suppression Discharge Medications: electronically signed and located in the Home Medication List. PICC Care - Routine: N/A - Orders Isolation Type: None Diet Recommendation: no restrictions on diet Diet Texture: Regular Texture Diet Weigh Patient: weekly Wound Care Instructions: Has appt with Dr Frank at [facility] ortho 09/15/2018 at 945 AM , . - per discharge instructions from [facility] was supposed to remain on lovenox for 14 days (confirm with Dr Frank's office or with Dr Romeo's office re if still 14 days, or should be extended). Has appt with [facility] 09/13/2018 320 pm [facility] in [place], Additional Instructions: -follow up with Dr Dill in 6 weeks with repeat x-rays of cervical spine, [phone] to schedule appointment with Dr Dill hard collar to be worn at all times for 12 weeks -call with any questions or concerns Regarding Orthopedic Instructions (Dr. Romeo) 1. Maintain original posterior hip precautions for left hip as shown by PT/OT. Continue to weight bear as tolerated to left hip. Follow up with Dr. Frank for left hip. 2. Maintain splint on left wrist. No weight bearing to your wrist. 3. Return to clinic in one week for repeat x-rays of left wrist and shoulder per the plan you discuss with case management. 4. Continue rest, ice, ice massage as needed. 5. Follow up in clinic with Dr. Romeo in 7 days after the date of surgery, or sooner as needed for additional questions/concerns which may arise. Please call our office at [phone] to schedule. Please follow up within 3- 4 weeks of discharge with outpatient [facility]: You may reach them at [phone] for an appointment and continued management of your wounds. Please call them sweta to schedule your appointment as they fill up quickly. If before that time you have any issues please follow up with your PCP. Wound care: [place] (Pressure injury) care: You have 3 wounds on your bottom/right lower back. A stage 3 on your tailbone, with a stage 2 very close to it on the left side. There is also a larger open stage two on your right lower back. To help heal these wounds and avoid further injury please do the followin. Reposition yourself frequently, at least every 15 minutes when sitting. We recommend sitting on an air cushion. Please never use a doughnut. 2. When youre in bed, try to rest on your side as much as possible, and change position every two hours (for example, turn or tilt from your right side toward your left).~ If you sleep on a sleep number or medical bed, keep the head of the bed below 30 degrees and keep all pressure off your low back for at least 5 minutes at least every two hours.~ Wound care order: Change dressings to Coccyx (tailbone) and Left lower Sacrum (buttock) every 3 days and as needed 1. Clean with ns and gauze or in shower with water and soap 2. Wound gel to wound bed 3. Cover with Mepilex Border Sacrum Change dressings to Right lower back (sacroilliac) every 3 days and as needed. 1. Clean with ns and gauze or in shower with water and soap 2. Wound gel to wound bed 3. Cover with Allevyn life (medium or large) or other foam border dressing. Ge Amador RN Wound Care Team - Follow Up Care Current Providers and Referrals: Franco Romeo MD [Medical Doctor] - Dipti Dill MD [Medical Doctor] - Gutierrez Reyes MD [[facility] Primary Care Provider] - 3 days of d/c SNF/Rehab
--- NOTE | 2018-08-27 14:38 | ASMTLACE ---
LACE Length of stay for Answers: 3 days current admission Acuity / Level of Answers: Yes Care: Did the patient have an inpatient admission? Comorbidities - select Answers: Chronic pulmonary disease all that apply Opioid dependence / Chronic pain Other Notes: Hypothyroid # of Emergency department Answers: 1-2 visits in the last 6 months Social determinants Answers: Lack of community resources and/or lack of social support (no pcp, lives alone, transportation, ebony d) Score: 18 Date Signed: 08/27/2018 02:38 PM Electronically Signed By:Flor Candelaria RN
--- NOTE | 2018-08-27 14:52 | ASMTDCNOTE ---
Case Management Discharge Discharge Order Complete? Answers: Yes Patient to Obtain Answers: Other Notes: Blunt Medications Transportation Arranged Answers: [facility] will Pick (Date 08/27/2018 04:00 PM & Time) Case Management Transport Answers: Yes Form Complete Faxed Final Orders Answers: Yes Agency/Facility Transfer Answers: Yes Report Printed & Faxed to Receiving Agency Family Notified Answers: Yes Discharge Comments Notes: D/w MD, final orders faxed. Gina at , Dr Liz at [facility], and ex spouse notified. RN to call report Date Signed: 08/27/2018 02:52 PM Electronically Signed By:Flor Candelaria RN
[2018-08-27] MEDS ORDERED: morphINE SR 15 MG TAB PO SCH (21:00)
[2018-08-27] MEDS ORDERED: METHOCARBAMOL 750 MG TAB PO ONE (23:29)
--- NOTE | 2018-10-04 11:03 | GDS ---
[f rep st] DISCHARGE SUMMARY SERVICE: [facility], [facility]. CONSULTS: Neurosurgery, Orthopedic Surgery, Palliative Care. PROCEDURES: 1. On the day of admission, chest x-ray: No pneumothorax or displaced rib fractures. Dual lead pac emaker, mild cardiomegaly. No acute effusion. 2. On the day of admission, cervical spine CT, which showed bilateral C6 facet fractures, nondisplac ed; possible bilateral C5 nondisplaced facet fracture; C5-C6 severe central canal stenosis; degenerat natacha anterolisthesis C3-C4, C4-C5. No cervical compression fractures. No odontoid fracture. 3. On the day of admission, head CT, which showed mild atrophy. No acute hemorrhage, hydrocephalus, or mass effect. Moderate microvascular ischemic gliosis. No definite acute infarct. 4. On the day of admission, hip x-ray, which showed a superiorly dislocated left hip. 5. On the day of admission, knee x-ray, which showed severe arthritis. No acute fracture or effusio n. Severe osteoporosis. 6. On the day of admission, left shoulder x-ray, which showed no acute changes. 7. On the day of admission, left wrist x-ray possible dorsal radial metaphyseal buckle fracture. 8. On the day of admission, chest CT, which showed centrilobular emphysema. No acute rib fractures. Old T9, T10, T11 compression fractures, worse at T9 with a prior T10 kyphoplasty. Scarring in the right lower lobe. No pneumothorax. 9. Cervical spine x-ray showed stable alignment of cervical fractures. HISTORY AND PHYSICAL: Please see previously dictated note by Dr. Easley. ADMISSION DIAGNOSES: 1. Fall at home, resulting in new cervical fractures. 2. Left wrist fracture. 3. Chronic hip dislocation. DISCHARGE DIAGNOSES: 1. Fall at home, resulting in new cervical fractures. 2. Left wrist fracture. 3. Chronic hip dislocation. 4. Pacemaker status. 5. Palliative care status. 6. Chronic anemia. HOSPITAL COURSE: The patient was brought into the emergency department after falling at home. She h ad recently been discharged from the [facility] in [place] after a long and complicated ad mission because of her chronic left hip dislocation and infection. Per [facility] records, she has been under the care of Dr. Frank at [facility] for these hip issues and had declined being transferred to a SNF after discharge, and instead went home. This is when she fell slipping o ut of her bed and resulting in another dislocation, along with some new cervical fractures. Orthopedic Surgery and Neurosurgery were asked to assist in the care of this patient[facility]. She was placed in a hard cervical co llar, followed by a Tazlina J collar that she should wear for 2 to 3 months. Her fractures were not fe lt to be surgical at this time per Neurosurgery. They recommended following up as an outpatient. Orthopedic Surgery was also asked to see her and reviewed her x-rays. They did not feel that the lef t wrist was fractured, but placed her in a splint for comfort. In regard to her hip dislocation, Dr. Romeo had a long discussion with Dr. Frank that nothing more could be done regarding the hip, and she should continue with palliative care/hospice. Further recommendation was to recheck wrist x-ray in a week to re-evaluate. She did not have any acute exacerbations of any chronic medical problems throughout her stay, pain wa s controlled as best as able with oral medications, vital signs remained stable throughout her stay, and she was afebrile throughout her stay. She did use 2 to 4 L of O2, but this seems to be her basel ine. Initially, [facility] Hospitalist was asked to consult on the patient, but Dr. Jo Ann arias requested transfer of care after her acute injuries have been evaluated and deemed stable/nonsur gical by his team, which I agree to. After many discussions with Palliative Care, her ex-, [facility], and myself, she was agreeable to transfer to a SNF. Please see transfer summary for fu medication list. DISCHARGE INSTRUCTIONS: 1. She should see Dr. Romeo in a week for a repeat wrist x-ray and recheck wrist pain. 2. She should see Dr. Cheikh Dill within 2 to 3 weeks to follow up cervical fractures. 3. Primary care provider is Dr. Blaze Reyes and she should see him within a few days of discharge. /[id number]/MODL
== END 2018-08-27 15:59 | DRG 551 ==
LOC: EDUNIT# → F3N 15:07
PROVIDERS: ADMIT Family Medicine; ATTEND Family Medicine
DX: S12.491A Other nondisplaced fracture of fifth cervical vertebra, initial encounter for closed fracture (principal); S12.591A Other nondisplaced fracture of sixth cervical vertebra, initial encounter for closed fracture; T84.021D Dislocation of internal left hip prosthesis, subsequent encounter; S63.502A Unspecified sprain of left wrist, initial encounter; W01.0XXA Fall on same level from slipping, tripping and stumbling without subsequent striking against object, initial encounter; Y92.013 Bedroom of single-family (private) house as the place of occurrence of the external cause; E87.6 Hypokalemia; L89.153 Pressure ulcer of sacral region, stage 3; E03.9 Hypothyroidism, unspecified; J44.9 Chronic obstructive pulmonary disease, unspecified; D53.9 Nutritional anemia, unspecified; Z51.5 Encounter for palliative care; Z95.0 Presence of cardiac pacemaker; Z87.442 Personal history of urinary calculi; Z87.891 Personal history of nicotine dependence; Z96.643 Presence of artificial hip joint, bilateral
CPT/HCPCS: 84484-ER; 92523-GN; 96374; 97162-GP; 97166-GO; 97167-GO; 97530-GO; 97530-GP; 97535-GO; G0378; J1170; J1650; J2270; J2405; L0174; L3984

== ENCOUNTER 2018-08-27 19:26 | Observation (INO) | payer OTHER, MEDICAID ==
--- NOTE | 2018-08-27 19:30 | EDPHY ---
H & P Time Seen by Provider: 08/27/18 19:29 - Personal History Tetanus Vaccine Date: 2014 - Medical/Surgical History Hx Asthma: Yes Hx Chronic Respiratory Disease: Yes Hx Diabetes: No Hx Cardiac Disease: Yes Hx Renal Disease: No Hx Cirrhosis: No Hx Alcoholism: No Hx HIV/AIDS: No Hx Splenectomy or Spleen Trauma: No Other PMH: appy, hypothyroid, arthritis, copd, tanja hip replacements,HIP REVISION x7 (last October 2016, prolapsed bladder, "kidney stone surgery",. spinal stenosis, chronic pain, PPM, scoliosis, Posterior hip dislocation x3, PACEMAKER. T9 compression fracture with kyphoplasty, Surgery on T9 vertebrae, bilateral cataracts - Social History Smoking Status: Former smoker Constitutional: Initial Vital Signs Temperature (C) 36.8 C 08/27/18 19:31 Heart Rate 85 08/27/18 19:31 Respiratory Rate 20 08/27/18 19:31 Blood Pressure 140/66 H 08/27/18 19:31 O2 Sat (%) 97 08/27/18 19:31 O2 Delivery Mode Nasal Cannula O2 (L/minute) 4 Allergies/Adverse Reactions: duloxetine HCl [From Cymbalta] Allergy (Severe, Verified 12/24/17 19:01) Vomiting Iodinated Contrast- Oral and IV Dye Allergy (Severe, Verified 12/24/17 19:01) Other-Enter Comments aspirin Allergy (Intermediate, Verified 12/24/17 19:01) stomach pain cephalexin monohydrate [From Keflex] Allergy (Intermediate, Verified 12/24/17 19 :01) Stomach Pain codeine [Codeine] Allergy (Intermediate, Verified 12/24/17 19:01) Nausea Vomiting hydrocodone bitartrate [From Vicodin] Allergy (Intermediate, Verified 12/24/17 19:01) Nausea Vomiting orphenadrine Allergy (Intermediate, Verified 12/24/17 19:01) Stomach pain tetracycline [Tetracycline] Allergy (Intermediate, Verified 12/24/17 19:01) Stomach Pain celecoxib Allergy (Unknown, Verified 12/24/17 19:01) Weight gain, Fatigue, Increased Pain ciprofloxacin Allergy (Unknown, Verified 12/24/17 19:01) clarithromycin Allergy (Unknown, Verified 12/24/17 19:01) Stomach Pain levofloxacin Allergy (Unknown, Verified 12/24/17 19:01) Swelling/neck,face,throat linezolid Allergy (Unknown, Verified 12/24/17 19:01) sulfamethoxazole Allergy (Unknown, Verified 12/24/17 19:01) Nausea Vomiting amoxicillin trihydrate [From Augmentin] Allergy (Verified 12/24/17 19:01) potassium clavulanate [From Augmentin] Allergy (Verified 12/24/17 19:01) shrimp Allergy (Verified 12/24/17 19:) ORPHENGESIC Allergy (Intermediate, Uncoded 12/24/17 19:) Stomach Pain Terpin hydrate Allergy (Intermediate, Uncoded 12/24/17 19:01) Stomach pain amoxicillin trihydrate Allergy (Unknown, Uncoded 12/24/17 19:) cephalexin monohydrate Allergy (Unknown, Uncoded 12/24/17 19:) Stomach Pain duloxetine HCl Allergy (Unknown, Uncoded 12/24/17 19:) Vomiting hydrocodone bitartrate Allergy (Unknown, Uncoded 12/24/17 19:) Nausea Vomiting potassium clavulanate Allergy (Unknown, Uncoded 12/24/17 19:01) Home Medications: Medication Instructions Recorded Ascorbic Acid [Vitamin C 500 mg 1,000 mg PO BIDMEAL 08/26/13 (*)] Calcium Carbonate [Tums 500MG (*)] 1,000 - 1,500 mg PO DAILY PRN 08/26/13 Sennosides [Senokot] 3 each PO HS 08/26/13 buPROPion XL [Wellbutrin 150mg XL] 300 mg PO DAILY 03/29/16 diphenhydrAMINE [Benadryl 25 MG 25 mg PO HS 05/17/16 (*)] Gabapentin [Neurontin 300 MG (*)] 600 mg PO BID 07/20/16 Cholecalciferol Vit D3 [Vitamin D3 2,000 units PO BID 08/11/16 (*)] Ipratropium/Albuterol [Duoneb (*)] 3 ml IH QID PRN 08/11/16 Levothyroxine [Synthroid 50 mcg 50 mcg PO DAILY06 09/24/16 (*)] oxyCODONE/APAP 5/325 [Percocet 1 tab PO Q8HRS PRN 11/22/16 5/325 (*)] Pantoprazole Sodium [Protonix 40mg 40 mg PO DAILY tab 11/28/16 (*)] Fluticasone/Salmeter 500/50Mcg 1 puffs IH BID 02/17/17 [Advair 500/50 (*)] Dicyclomine [Bentyl 20 MG (*)] 20 mg PO QID PRN 08/06/17 Albuterol [Proventil Inhaler HFA 1 - 2 puffs IH Q4H PRN 12/24/17 (*)] Enoxaparin [Lovenox] 30 mg SQ DAILY 08/24/18 Lidocaine 4%/Menthol 1% [Icy Hot 1 patch TD DAILY 08/24/18 Lidocaine/Menthol 4%/1% Patch (*)] Magnesium Hydroxide [Milk of 5 - 15 ml PO QID PRN 08/24/18 Magnesia] Acetaminophen [Tylenol ES 500 mg 1,000 mg PO Q8H tab 08/27/18 (*)] Diazepam [Valium 5 MG (*)] 2.5 mg PO BID PRN tab 08/27/18 Doxycycline Hyclate [Vibramycin 100 mg PO BID #0 08/27/18 100 MG (*)] Patch Removal 1 ea TD DAILY21 patch 08/27/18 Polyethylene Glycol 3350 [Miralax 17 gm PO DAILY PRN pkt 08/27/18 17 gm (*)] morphINE SR [Ms Contin/Oramorph 15 15 mg PO BID tab 08/27/18 mg (*)] Medical Decision Making ED Course/Re-evaluation: CHIEF COMPLAINT: Back pain HISTORY OF PRESENT ILLNESS: The patient is an 82 y/o female with an extensive medical history including chronic pain, bilateral hip replacement (Callie), and a T9 compression fracture with a kyphoplasty complaining of back and left hip pain. Around two weeks ago she had an acetabulum surgery in [place]. After the surgery she was sent home but fell on 08/24 and had C5/6 facet fractures. She was admitted to this hospital and was discharged yesterday to [facility]. Today she arrives to the emergency department for uncontrollable neck pain as [facility] does not have the pain medications ready. No fever, headache, body aches, lightheadedness, chest pain, heart palpitations, shortness of breath, cough, abdominal pain, urinary or bowel complaints, numbness, paresthesias. REVIEW OF SYSTEMS: A comprehensive 10 system review of systems is otherwise negative aside from elements mentioned in the history of present illness and medical decision making. PHYSICAL EXAM: HR, BP, O2 Sat, RR. Temp noted General Appearance: Alert, well hydrated, appropriate, and non-toxic appearing. Head: Atraumatic without scalp tenderness or obvious injury Eyes: Pupils equal, round, reactive to light and accommodation, EOMI, no trauma , no injection. Ears: Clear bilaterally, no perforation, normal landmarks Nose: Atraumatic, no rhinorrhea, clear. Throat: There is no erythema or exudates, no lesions, normal tonsils, mucus membranes moist. Neck: In a c-collar for fractured vertebrae. Supple, 2+ carotid upstroke, no lymphadenopathy. Respiratory: No retractions, no distress, no wheezes, and no accessory muscle use. Lungs are clear to auscultation bilaterally. Cardiovascular: Regular rate and rhythm, no murmurs, rubs, or gallops. Bilateral carotid, radial, dorsalis pedis, and posterior tibial pulses intact. Good capillary refill all extremities. Gastrointestinal: Abdomen is soft, nontender, non-distended, no masses, no rebound, no guarding, no peritoneal signs. Musculoskeletal: Sitting up in bed, shortened left leg, chronic bilateral lower extremity venostasis changes. Neurological: Alert, appropriate, and interactive. The patient has normal DTRs and non-focal cranial nerves, motor, sensory, and cerebellar exam. Skin: No rashes, good turgor, no nodules on palpation. Past medical history: Appendectomy, hypothyroid, arthritis, COPD, bilateral hip replacements, prolapse bladder, kidney stones, spinal stenosis, chronic pain, narcotic dependent, scoliosis, pacemaker, T9 compression fracture, kyphoplasty, C5/6 facet fracture, bilateral cataract surgery. Family history: Denies Social history: She currently lives alone. EMS reports that her apartment was messy. She has a dog. Nonsmoker. She denies alcohol. DIAGNOSTICS/PROCEDURES/CRITICAL CARE TIME: Not indicated DIFFERENTIAL DIAGNOSIS: The differential diagnosis for the patient's back pain included but was not limited to musculoskeletal pain, epidural abscess, herniated disk, spinal fracture, and intra-abdominal causes including urinary system. MEDICAL DECISION MAKING: The patient is an 82 y/o female with an extensive medical history including chronic pain, bilateral hip replacement (Callie), and a T9 compression fracture with a kyphoplasty complaining of back and left hip pain. She is here for incontrollable neck pain after fracturing C5/6 3 days ago as [facility] did not have the medication ready for the patient. On exam she has a cervical collar in place and appears uncomfortable. Labs ordered; 0.5mg IV Dilaudid administered. 1937: I consulted with Dr. Thakur, hospitalist, regarding this patient. He accepts admission of this patient. 2011: Patient is about to be transferred to the floor and still in pain. 0.5mg IV Dilaudid and 750mg Robaxin administered. - Data Points Laboratory Results: Laboratory Results 08/27/18 19:30 08/27/18 19:30 08/27/18 08/27/18 19:30 19:30 WBC 8.77 10^3/uL 10^3/uL (3.80-9.50) RBC 3.18 10^6/uL L 10^6/uL (4.18-5.33) Hgb 9.5 g/dL L g/dL (12.6-16.3) Hct 31.7 % L % (38.0-47.0) MCV 99.7 fL fL (81.5-99.8) MCH 29.9 pg pg (27.9-34.1) MCHC 30.0 g/dL L g/dL (32.4-36.7) RDW 14.4 % % (11.5-15.2) Plt Count 497 10^3/uL H 10^3/uL (150-400) MPV 8.8 fL fL (8.7-11.7) Neut % (Auto) 64.4 % % (39.3-74.2) Lymph % (Auto) 17.2 % % (15.0-45.0) [place] % (Auto) 10.4 % % (4.5-13.0) Eos % (Auto) 7.2 % % (0.6-7.6) Baso % (Auto) 0.5 % % (0.3-1.7) Nucleat RBC Rel Count 0.0 % % (0.0-0.2) Absolute Neuts (auto) 5.65 10^3/uL 10^3/uL (1.70-6.50) Absolute Lymphs (auto) 1.51 10^3/uL 10^3/uL (1.00-3.00) Absolute Monos (auto) 0.91 10^3/uL H 10^3/uL (0.30-0.80) Absolute Eos (auto) 0.63 10^3/uL H 10^3/uL (0.03-0.40) Absolute Basos (auto) 0.04 10^3/uL 10^3/uL (0.02-0.10) Absolute Nucleated RBC 0.00 10^3/uL 10^3/uL (0-0.01) Immature Gran % 0.3 % % (0.0-1.1) Immature Gran # 0.03 10^3/uL 10^3/uL (0.00-0.10) Sodium 133 mEq/L L mEq/L (135-145) Potassium 3.6 mEq/L mEq/L (3.5-5.2) Chloride 97 mEq/L mEq/L (97-110) Carbon Dioxide 29 mEq/l mEq/l (22-31) Anion Gap 7 mEq/L mEq/L (6-14) BUN 8 mg/dL mg/dL (7-23) Creatinine 0.5 mg/dL L mg/dL (0.6-1.0) Estimated GFR > 60 Glucose 100 mg/dL mg/dL (70-100) Calcium 8.6 mg/dL mg/dL (8.5-10.4) Total Bilirubin 0.2 mg/dL mg/dL (0.1-1.4) Conjugated Bilirubin 0.2 mg/dL mg/dL (0.0-0.5) Unconjugated Bilirubin 0.0 mg/dL mg/dL (0.0-1.1) AST 20 IU/L IU/L (14-46) ALT 18 IU/L IU/L (9-52) Alkaline Phosphatase 141 IU/L H IU/L (38-126) Total Protein 6.0 g/dL L g/dL (6.3-8.2) Albumin 2.7 g/dL L g/dL (3.5-5.0) Lipase 178 IU/L IU/L (23-300) Medications Given: Discontinued Medications Hydromorphone HCl (Dilaudid) 0.5 mg IVP EDNOW ONE Stop: 08/27/18 19:39 Last Admin: 08/27/18 19:42 Dose: 0.5 mg Departure - Departure Disposition: [facility] Inpatient Acute Clinical Impression: Frequent falls, Neck pain Cervical spine fracture Qualifiers: Encounter type: initial encounter Cervical vertebra fracture level: C5 Fracture type: closed Fracture morphology: unspecified fracture morphology Fracture alignment: nondisplaced Qualified Code(s): S12.401A - Unspecified nondisplaced fracture of fifth cervical vertebra, initial encounter for closed fracture Condition: Fair Report Scribed for: Jorden Kay Report Scribed by: Kiera Kuhn Date of Report: 08/27/18 Time of Report: 19:29
[2018-08-27] MEDS ORDERED: HYDROmorphONE/DILAUDID 2 MG/ML INJ IVP ONE ×2 (19:38→20:10)
[2018-08-27 19:44] LABS: PLATELET COUNT 497 10^3/uL (150-400)
[2018-08-27] MEDS ORDERED: METHOCARBAMOL 750 MG TAB PO ONE (20:11)
[2018-08-27] MEDS ORDERED: HYDROmorphONE/DILAUDID 1 MG/ML INJ ONE (20:13)
[2018-08-27] MEDS ORDERED: MAGNESIUM HYDROXIDE 30 ML UDCUP PO PRN (20:15)
[2018-08-27] MEDS ORDERED: ALBUTEROL 60 PUFFS/8 GM MDI IH PRN (20:15)
[2018-08-27] MEDS ORDERED: POLYETHYLENE GLYCOL 3350 17 GM PKT PO PRN (20:15)
--- NOTE | 2018-08-27 21:27 | GHP ---
[f rep st] HISTORY AND PHYSICAL DATE OF ADMISSION: 08/27/2018 Ms. Machuca is an 82-year-old female with a history of chronically-infected [id number]-[id number] d left hip, recently admitted to this hospital after a fall at her home in [place]. She was admitted to the trauma service, found to have a cervical spine fracture at C5-C6, managed nonoperatively with an [place] collar. Prior to that hospitalization, she was at [facility] under th e care of Dr. Mike Frank who had been managing the chronically-infected left hip. She has a salvage bipolar hemiarthroplasty, on chronic doxycycline suppressive therapy for chronic osteomyelitis of th at same hip. She was discharged to [facility] today after being seen by the palliative care service last week. Up on arrival to [facility], they were unprepared for her arrival and had no pain medicines, as well as a number of other problems. She also cites a couple of episodes of diarrhea that was slow to be gian luis up. She therefore re-presents here for further care. When I speak with her, she is largely venting about her intolerable experience at [facility], stating she will never go back there. She does acknowledge new diarrhea. She is not certain if it is from withdrawal from the chronic narcotics that she takes. She is not having fever, chills, nausea, or vomiting. REVIEW OF SYSTEMS: Complete 10-point review of systems conducted, negative except as noted in the HP I. PAST MEDICAL HISTORY: 1. Falls, recurrent. 2. Multiple surgeries to her left hip with 2-week hospital stay at [facility] [place] . 3. Osteoporosis, hypothyroidism, depression, pacemaker, obstructive sleep apnea, retinopathy, sinusi tis, COPD, chronic hypoxemic respiratory failure, narcotic dependency, scoliosis, T10, T9 compression fracture, kyphoplasty, prolapsed bladder, C5-C6 spine fracture, wrist pain. She claims it is broken ; however, x-ray on the 12th of this month at this hospital shows that it cannot exclude a distal parris kelly radial metaphyseal buckle fracture. ALLERGIES: Numerous: Duloxetine, iodinated contrast, aspirin, cephalexin, codeine, hydrocodone, orp henadrine, tetracycline, she takes doxycycline I might add, celecoxib, ciprofloxacin, clarithromycin, levofloxacin, linezolid, sulfamethoxazole, amoxicillin, shrimp, Orphengesic, terpin hydrate, amoxici llin. SOCIAL HISTORY: Has a dog named Jackie. Lives in [place]. Her house has 19 stairs. Nondrinker. FAMILY HISTORY: Reviewed and unremarkable. PHYSICAL EXAM: PRESENTING VITALS: Blood pressure 125/54, heart rate 72, respiratory rate 18, 99% on 4 L. GENERAL: No acute distress. Emotionally taxed. HEENT: Sclerae anicteric. Oropharynx is cl ear. NECK: In a hard collar. LUNGS: Clear to auscultation bilaterally. HEART: S1, S2, without m urmurs. ABDOMEN: Soft, nontender, nondistended. LOWER EXTREMITIES: Her left lower extremity shows a chronic bandage with pigmentation from numerous surgical scars. There is muscle loss. Her left w rist is in a soft splint. NEUROLOGIC: Exam is nonfocal. LABS: White count 8.77, hematocrit 31.7, platelets 497,000. INR 1.15. Sodium 133, potassium 3.6, c hloride 97, bicarb 29, BUN 8, creatinine 0.5. LFTs normal. Albumin low at 2.7. There is no imaging. I have discussed the case with Dr. Jorden Kay. ASSESSMENT/PLAN: Complex 82-year-old female with multiple orthopedic issues as well some end of life care presents after failing presentation at [facility]. 1. Disposition: The patient is unsafe to live at home given her numerous falls with orthopedic frac tures. However, she is uncomfortable going to a facility. There is no obvious solution to this conu ndrum this evening. We will have Case Management help us sort it out. One possibility is home hospi ce with inpatient hospice care. She misses her dog, Trishddosvaldo, and this is the primary chain saw driver of her d esire to return home. 2. Cervical spine fractures: We will continue her hard collar. 3. Pain: I will continue her chronic narcotics as prescribed. 4. Chronic osteomyelitis: Continue with suppressive doxycycline. 5. Wound care: Have the wound care nurse see her. DISPOSITION: Inpatient status. PROPHYLAXIS: [id number]-bhnfiv heparin. /[id number]/MODL
[2018-08-27] MEDS: FLUTICASONE/SALMETER 500/50MCG DISKUS IH SCH (22:06)
[2018-08-27] MEDS: morphINE SR 15 MG TAB PO SCH (22:19)
[2018-08-27] MEDS: OXYCODONE/APAP 5/325 TAB PO PRN (22:19)
[2018-08-27] MEDS: GABAPENTIN 300 MG CAP PO SCH (22:19)
[2018-08-27] MEDS: CHOLECALCIFEROL VIT D3 2,000 UNITS TAB/CAP PO SCH (22:20)
[2018-08-27] MEDS: DOXYCYCLINE HYCLATE 100 MG CAP/TAB PO SCH (22:20)
[2018-08-27] MEDS: diphenhydrAMINE 25 MG CAP PO SCH (22:21)
[2018-08-27] MEDS: ACETAMINOPHEN 500 MG TAB PO SCH (22:21)
[2018-08-27] MEDS: PATCH REMOVAL 1 EA PATCH TD SCH (22:24)
[2018-08-27] MEDS: SENNOSIDES 1 TAB PO SCH (22:25)
[2018-08-28] MEDS: ACETAMINOPHEN 500 MG TAB PO SCH ×3 (05:41→20:23)
[2018-08-28] MEDS: LEVOTHYROXINE 50 MCG TAB PO SCH (05:41)
[2018-08-28] MEDS: OXYCODONE/APAP 5/325 TAB PO PRN ×2 (05:42→20:20)
[2018-08-28] MEDS: ENOXAPARIN 30 MG/0.3 ML SYR SC SCH (08:23)
[2018-08-28] MEDS: CHOLECALCIFEROL VIT D3 2,000 UNITS TAB/CAP PO SCH ×2 (08:26→20:21)
[2018-08-28] MEDS: ASCORBIC ACID 500 MG TAB PO SCH ×3 (08:26→17:56)
[2018-08-28] MEDS: GABAPENTIN 300 MG CAP PO SCH ×2 (08:29→20:21)
[2018-08-28] MEDS: LIDOCAINE 4%/MENTHOL 1% PATCH TD SCH (08:30)
[2018-08-28] MEDS: buPROPion XL 150 MG TAB PO SCH (08:31)
[2018-08-28] MEDS: PANTOPRAZOLE SODIUM 40 MG TAB PO SCH (08:31)
[2018-08-28] MEDS: morphINE SR 15 MG TAB PO SCH ×2 (08:31→20:20)
[2018-08-28] MEDS: FLUTICASONE/SALMETER 500/50MCG DISKUS IH SCH ×2 (08:57→21:43)
[2018-08-28] MEDS: DOXYCYCLINE HYCLATE 100 MG CAP/TAB PO SCH ×2 (09:52→20:19)
[2018-08-28] MEDS: ONDANSETRON DISINTEGRATING 4 MG TAB PO PRN ×2 (09:53→20:19)
[2018-08-28] MEDS: DIAZEPAM 5 MG TAB PO PRN ×2 (10:02→21:43)
--- NOTE | 2018-08-28 11:05 | ASMTCMCOM ---
CM Note CM Note Notes: Pt is a 82 y/o female admitted for multiple falls, fractures and pain. Pt was d/c'd yesterday to [facility]. Pt has multiple complaints about [place] and not interested in going back. Pt would like to d/c home w/ [facility] and [facility] palliative services. Pt currently getting non skilled HC a couple hrs a day at home. Therapies have been ordered and pending. Pt has 19 stairs to get into her home. Pt was hoping that [facility] would be able to assist her up the stairs. Pt is also requesting a stretcher transport at this time. Referral sent to [facility] and [facility]. [facility] is able to accept. Pts PCP is Dr. Gutierrez Reyes. CM confirmed pts address and phone number. CM to follow. Plan: [facility]; PT, OT, RN, Thalia falcon, private duty HC vs SNF Date Signed: 08/28/2018 11:04 AM Electronically Signed By:JORDY Nunes
[2018-08-28] MEDS: METHOCARBAMOL 750 MG TAB PO SCH ×2 (15:46→20:19)
[2018-08-28] MEDS: DICYCLOMINE 20 MG TAB PO PRN (19:48)
--- NOTE | 2018-08-28 19:56 | HOSPPROG ---
Hospitalist Progress Note Assessment/Plan: 1. s/p L BROOKS complications (established patient of Dr Mike Frank MD at [facility]), returned to [facility] via ambulance from [facility] within a few hours of arrival of 'severe pain' -she was taking 120 mg bid ms contin while at [facility], she is receiving 15 mg bid here and has used 1 dose prn pain med since re-admission last nt -infection requiring explantation of components and revision of components over the past 5+ years (on chronic doxy for suppression) -s/p revision hip surgery, resulting in a salvage procedure of bipolar hemiarthroplasty and acetabular explantation at [facility] (discharged 04/2019). -At , prior to discharge and per Dr Frank's report to Dr Romeo, an extensive, multidisciplinary counseling was performed, including an ethics committee ruling, and it was determined that she would be discharged to hospice and palliative care. -At [facility], she decided against any further surgery, and agreed with the plan. Fell within 24 hours of discharge -agreed to SNF here, discharged yesterday 2. s/p mechanical fall at home within 24 hrs of discharge from [facility] resulting in new cervical fractures and L wrist sprain -in C collar per neurosurg 3. Depression -home med 4. Anemia -hgb stable -watch closely 5. Abnl UA -cx with no dominant organism previously -repeat UA/cx ordered 6. Hypothyroid -last tsh in good range 12/2017, will recheck 7. hyponatremia -slightly low -recheck in AM PCP- Dr Gutierrez Reyes DVT prophy- Lovenox per [facility] discharge summary FULL CODE (ex is MD MIRZA per report, their daughter lives in [facility], no other family here) Dispo- she refuses to go to SNF but acknowledges that she is unable to care for herself at home and lives alone. Thinks help coming in to home is enough, but then she is not sure how she could have fallen when her bed is so low to ground. Palliative care involved prior to her discharge yesterday, asked them to return and review her goals of care. Will ask her permission to call daughter tomorrow also. Subjective: Says [facility] was dirty, she had diarrhea and no one came quickly to help her. Says she would never go there again, only wants to go home. Says has people coming in every day to help her at home, lives alone. Says she'll ' bounce back...always does.' Daughter in [place], ex here. Denies CP/SOB/n/v/ d today. Says pain OK currently. Objective: Vital Signs Temp Pulse Resp BP Pulse Ox 98.1 F 67 18 130/54 H 97 08/28/18 15:06 08/28/18 15:06 08/28/18 15:06 08/28/18 15:06 08/28/18 15:06 08/27/18 08/28/18 08/29/18 11:59 11:59 11:59 Intake Total 550 400 Output Total 440 550 Balance 110 -150 - Time Spent With Patient Time Spent with Patient: greater than 35 minutes (total floor time) Time Spent with Patient: Greater than 35 minutes spent on this patients care, greater than 50% of time spent counseling, educating, and coordinating care regarding the above mentioned plan. - Physical Exam Constitutional: no apparent distress, not in pain Eyes: anicteric sclera, EOMI Ears, Nose, Mouth, Throat: moist mucous membranes, hearing normal Cardiovascular: regular rate and rhythym, No edema Respiratory: no respiratory distress, no rales or rhonchi, clear to auscultation Gastrointestinal: normoactive bowel sounds, soft, non-tender abdomen, No guarding, No rebound, No distension Skin: warm Musculoskeletal: other (in C collar) Psychiatric: interacting appropriately, not anxious, poor insight ICD10 Worksheet Patient Problems: Problems Problem Status Onset Cervical spine fracture Acute Frequent falls Acute Neck pain Acute Abdominal pain Acute Abdominal pain Acute Acute respiratory failure Acute Altered mental status Acute Back pain Acute Broken internal hip prosthesis Acute COPD (chronic obstructive pulmonary disease) Acute Chest discomfort Acute Chronic left hip pain Acute Chronic obstructive pulmonary disease with acute exacerbation Acute Complete heart block Acute Dyspnea Acute Dyspnea Acute Elevated troponin Acute Fall from ground level Acute Forehead contusion Acute Gastric ulcer with perforation Acute Generalized weakness Acute Hip dislocation, left Acute Hypoxemia Acute Nausea Acute Osteoporosis Acute Palliative care encounter Acute S/P hip replacement Acute Syncope Acute chronic disease mgmt/transitional care Acute
[2018-08-28] MEDS: diphenhydrAMINE 25 MG CAP PO SCH (20:20)
[2018-08-28] MEDS: SENNOSIDES 1 TAB PO SCH (20:24)
[2018-08-28] MEDS: PATCH REMOVAL 1 EA PATCH TD SCH (21:44)
[2018-08-29 05:27] LABS: PLATELET COUNT 446 10^3/uL (150-400)
[2018-08-29] MEDS: LEVOTHYROXINE 50 MCG TAB PO SCH (05:43)
[2018-08-29] MEDS: OXYCODONE/APAP 5/325 TAB PO PRN ×2 (05:44→20:55)
[2018-08-29] MEDS: ACETAMINOPHEN 500 MG TAB PO SCH ×3 (05:44→20:48)
[2018-08-29] MEDS: ASCORBIC ACID 500 MG TAB PO SCH ×2 (09:20→18:00)
[2018-08-29] MEDS: CHOLECALCIFEROL VIT D3 2,000 UNITS TAB/CAP PO SCH ×2 (09:25→20:48)
[2018-08-29] MEDS: PANTOPRAZOLE SODIUM 40 MG TAB PO SCH (09:25)
[2018-08-29] MEDS: buPROPion XL 150 MG TAB PO SCH (09:26)
[2018-08-29] MEDS: GABAPENTIN 300 MG CAP PO SCH ×2 (09:27→20:56)
[2018-08-29] MEDS: morphINE SR 15 MG TAB PO SCH ×2 (09:27→20:55)
[2018-08-29] MEDS: METHOCARBAMOL 750 MG TAB PO SCH ×3 (09:28→20:56)
[2018-08-29] MEDS: ENOXAPARIN 30 MG/0.3 ML SYR SC SCH (09:33)
[2018-08-29] MEDS: DICYCLOMINE 20 MG TAB PO PRN ×2 (09:35→20:55)
[2018-08-29] MEDS: FLUTICASONE/SALMETER 500/50MCG DISKUS IH SCH ×2 (10:14→20:57)
[2018-08-29] MEDS: ONDANSETRON DISINTEGRATING 4 MG TAB PO PRN (10:16)
[2018-08-29] MEDS: DOXYCYCLINE HYCLATE 100 MG CAP/TAB PO SCH ×2 (10:16→20:49)
[2018-08-29] MEDS: LIDOCAINE 4%/MENTHOL 1% PATCH TD SCH (10:17)
[2018-08-29] MEDS: IPRATROPIUM/ALBUTEROL 3 ML DEYVIAL IH PRN (15:24)
[2018-08-29] MEDS: SENNOSIDES 1 TAB PO SCH (20:33)
[2018-08-29] MEDS: diphenhydrAMINE 25 MG CAP PO SCH (20:55)
[2018-08-29] MEDS: CALCIUM CARBONATE 500 MG CHEWABLE TAB PO PRN (20:56)
[2018-08-29] MEDS: PATCH REMOVAL 1 EA PATCH TD SCH (20:57)
--- NOTE | 2018-08-29 22:31 | HOSPPROG ---
Hospitalist Progress Note Assessment/Plan: 1. s/p L BROOKS complications (established patient of Dr Mike Frank MD at [facility]) -she was taking 120 mg bid ms contin while at [facility], she is receiving 15 mg bid here and has used only a few doses prn pain med since re-admission -infection requiring explantation of components and revision of components over the past 5+ years (on chronic doxy for suppression) -s/p revision hip surgery, resulting in a salvage procedure of bipolar hemiarthroplasty and acetabular explantation at [facility] (discharged 04/2019). -At , prior to discharge and per Dr Frank's report to Dr Romeo, an extensive, multidisciplinary counseling was performed, including an ethics committee ruling, and it was determined that she would be discharged to hospice and palliative care. Doxy for suppression -At [facility], she decided against any further surgery, and agreed with the plan. Fell within 24 hours of discharge, came to [facility] and admitted -agreed to SNF here, discharged Thursday, returned to [facility] via ambulance from [place] within a few hours of arrival of 'severe pain' 2. s/p mechanical fall at home within 24 hrs of discharge from [facility] resulting in new cervical fractures and L wrist sprain -in C collar per neurosurg 3. Depression -home med 4. Anemia -hgb slight decrease -watch closely 5. Abnl UAs -cxs with no dominant organism previously -repeat cx pending 6. Hypothyroid -TSH in good range 7. hyponatremia, resolved 8. thrombocytosis -reactive, stable <500K 9. Asthma/COPD -no respiratory distress -chronic stable O2 use -RT to give neb at her request PCP- Dr Gutierrez Reyes dog-Cuddles DVT prophy- Lovenox per [facility] discharge summary FULL CODE (ex is MD MIRZA per report, their daughter lives in [facility], no other family here) Dispo- she refuses to go to SNF but acknowledges that she is unable to care for herself at home and lives alone. Thinks help coming in to home is enough, but then she is not sure how she could have fallen when her bed is so low to ground. Palliative care involved prior to her discharge from here and from [facility], asked them to return and review her goals of care. Request CM rech out to daughter also Subjective: Says she 'is tired of fighting with nurse about everything.' Denies v/d. Says pain OK with current doses. Requests neb as feels like 'it is hard to breathe' and can't use MDI with c collar on. Denies CP. Objective: Vital Signs Temp Pulse Resp BP Pulse Ox 98.8 F 80 16 120/65 97 08/29/18 20:00 08/29/18 20:00 08/29/18 20:00 08/29/18 20:00 08/29/18 20:00 Laboratory Results 08/29/18 04:15 08/29/18 04:06 08/28/18 08/29/18 08/30/18 11:59 11:59 11:59 Intake Total 550 1480 400 Output Total 440 1550 Balance 110 -70 400 - Time Spent With Patient Time Spent with Patient: greater than 35 minutes (total floor time) Time Spent with Patient: Greater than 35 minutes spent on this patients care, greater than 50% of time spent counseling, educating, and coordinating care regarding the above mentioned plan. - Physical Exam Constitutional: no apparent distress, other (thin) Eyes: anicteric sclera, EOMI Ears, Nose, Mouth, Throat: moist mucous membranes, hearing normal Cardiovascular: regular rate and rhythym, No edema Respiratory: no respiratory distress, no rales or rhonchi, other (decreased BS throughout, no wheezing) Gastrointestinal: normoactive bowel sounds, soft, non-tender abdomen, No guarding, No rebound, No distension Skin: warm Musculoskeletal: other (PADRON) Neurologic: other (non focal) Psychiatric: interacting appropriately (redirected easily ), poor insight ICD10 Worksheet Patient Problems: Problems Problem Status Onset Cervical spine fracture Acute Frequent falls Acute Neck pain Acute Abdominal pain Acute Abdominal pain Acute Acute respiratory failure Acute Altered mental status Acute Back pain Acute Broken internal hip prosthesis Acute COPD (chronic obstructive pulmonary disease) Acute Chest discomfort Acute Chronic left hip pain Acute Chronic obstructive pulmonary disease with acute exacerbation Acute Complete heart block Acute Dyspnea Acute Dyspnea Acute Elevated troponin Acute Fall from ground level Acute Forehead contusion Acute Gastric ulcer with perforation Acute Generalized weakness Acute Hip dislocation, left Acute Hypoxemia Acute Nausea Acute Osteoporosis Acute Palliative care encounter Acute S/P hip replacement Acute Syncope Acute chronic disease mgmt/transitional care Acute
[2018-08-29] MEDS: DIAZEPAM 5 MG TAB PO PRN (23:01)
[2018-08-30] MEDS: ACETAMINOPHEN 500 MG TAB PO SCH ×2 (04:14→11:41)
[2018-08-30] MEDS: LEVOTHYROXINE 50 MCG TAB PO SCH (05:12)
[2018-08-30] MEDS: FLUTICASONE/SALMETER 500/50MCG DISKUS IH SCH (07:57)
[2018-08-30] MEDS ORDERED: ENOXAPARIN 40 MG/0.4 ML SYR SC SCH (09:00)
[2018-08-30] MEDS: LIDOCAINE 4%/MENTHOL 1% PATCH TD SCH (10:08)
[2018-08-30] MEDS: morphINE SR 15 MG TAB PO SCH (10:09)
[2018-08-30] MEDS: METHOCARBAMOL 750 MG TAB PO SCH ×2 (10:09→16:06)
[2018-08-30] MEDS: GABAPENTIN 300 MG CAP PO SCH (10:09)
[2018-08-30] MEDS: CHOLECALCIFEROL VIT D3 2,000 UNITS TAB/CAP PO SCH (10:10)
[2018-08-30] MEDS: buPROPion XL 150 MG TAB PO SCH (10:10)
[2018-08-30] MEDS: DOXYCYCLINE HYCLATE 100 MG CAP/TAB PO SCH (10:10)
[2018-08-30] MEDS: PANTOPRAZOLE SODIUM 40 MG TAB PO SCH (10:10)
[2018-08-30] MEDS: ASCORBIC ACID 500 MG TAB PO SCH ×2 (10:11→18:11)
[2018-08-30] MEDS: IPRATROPIUM/ALBUTEROL 3 ML DEYVIAL IH PRN (10:58)
--- NOTE | 2018-08-30 11:39 | HOSPPROG ---
Hospitalist Progress Note Assessment/Plan: complex 82 yo F w chronic L infected hip s/p L BROOKS complications (established patient of Dr Mike Frank MD at [facility]) -she was taking 120 mg bid ms contin while at [facility], she is receiving 15 mg bid here and has used only a few doses prn pain med since re-admission -infection requiring explantation of components and revision of components over the past 5+ years (on chronic doxy for suppression) -s/p revision hip surgery, resulting in a salvage procedure of bipolar hemiarthroplasty and acetabular explantation at [facility] (discharged 04/2019). -At , prior to discharge and per Dr Frank's report to Dr Romeo, an extensive, multidisciplinary counseling was performed, including an ethics committee ruling, and it was determined that she would be discharged to hospice and palliative care. Doxy for suppression -At [facility], she decided against any further surgery, and agreed with the plan. Fell within 24 hours of discharge, came to [facility] and admitted -agreed to SNF here, discharged Thursday, returned to [facility] via ambulance from [place] within a few hours of arrival of 'severe pain' continue suppressive doxy s/p mechanical fall at home within 24 hrs of discharge from [facility] resulting in new cervical fractures and L wrist sprain -in C collar 08/[address] shows c5 and possible c6 facet fractures hard colar for 10 weeks, which is november 02 Depression -home med Anemia -hgb slight decrease -watch closely 5Abnl UAs -cxs with no dominant organism previously -repeat cx pending no sx or fever so hold abx Hypothyroid -TSH in good range hyponatremia, resolved thrombocytosis -reactive, stable <500K Asthma/COPD -no respiratory distress -chronic stable O2 use -RT to give neb at her request PCP- Dr Gutierrez Reyes dog-Cuddles DVT prophy- Lovenox per [facility] discharge summary FULL CODE (ex is MD MIRZA per report, their daughter lives in [facility], no other family here) Dispo she refuses to go to SNF but acknowledges that she is unable to care for herself at home and lives alone. also refusing inpt hospice Thinks help coming in to home is enough, but then she is not sure how she could have fallen when her bed is so low to ground. high likelihhod of recurrent falls CM looking into home care Subjective: c/o pain. denies dysuria, frequency Objective: Vital Signs Temp Pulse Resp BP Pulse Ox 36.8 C 77 16 144/63 H 97 08/30/18 09:00 08/30/18 11:00 08/30/18 11:00 08/30/18 07:44 08/30/18 11:00 Laboratory Results 08/30/18 04:20 08/29/18 04:06 08/29/18 08/30/18 08/31/18 05:59 05:59 05:59 Intake Total 880 1000 Output Total 1550 1000 200 Balance -670 0 -200 - Physical Exam Constitutional: no apparent distress, appears nourished Eyes: PERRL, anicteric sclera Ears, Nose, Mouth, Throat: moist mucous membranes, hearing normal, other (neck in hard collar) Cardiovascular: regular rate and rhythym, no murmur, rub, or gallop Respiratory: no respiratory distress, no rales or rhonchi Gastrointestinal: normoactive bowel sounds, soft, non-tender abdomen Genitourinary: No chester in urethra Skin: warm, normal color Musculoskeletal: other (L leg w chronic infection), No full muscle strength Neurologic: AAOx3 Psychiatric: interacting appropriately, not anxious Lymph, Heme, Immunologic: no cervical LAD ICD10 Worksheet Patient Problems: Problems Problem Status Onset Cervical spine fracture Acute Frequent falls Acute Neck pain Acute Abdominal pain Acute Abdominal pain Acute Acute respiratory failure Acute Altered mental status Acute Back pain Acute Broken internal hip prosthesis Acute COPD (chronic obstructive pulmonary disease) Acute Chest discomfort Acute Chronic left hip pain Acute Chronic obstructive pulmonary disease with acute exacerbation Acute Complete heart block Acute Dyspnea Acute Dyspnea Acute Elevated troponin Acute Fall from ground level Acute Forehead contusion Acute Gastric ulcer with perforation Acute Generalized weakness Acute Hip dislocation, left Acute Hypoxemia Acute Nausea Acute Osteoporosis Acute Palliative care encounter Acute S/P hip replacement Acute Syncope Acute chronic disease mgmt/transitional care Acute
[2018-08-30] MEDS: OXYCODONE/APAP 5/325 TAB PO PRN (11:40)
[2018-08-30] MEDS: DIAZEPAM 5 MG TAB PO PRN (11:41)
--- NOTE | 2018-08-30 13:38 | PDCONSULT ---
Supervising Producer Note: PALLIATIVE CARE FOLLOW UP NOTE HPI:Tahira Machuca is an 82 yr old female with an extensive medical history including bilateral hip surgeries with multiple revisions of the left hip. She has chronic osteomyelitis and requires life long antibiotic therapy. She also has C5 and C6 facet fractures and will be wearing a hard collar for up to 12 weeks. Tahira was seen at [facility] by Dr. Liz from [facility] on for a palliative care consult. Since that consultation, Tahira was discharged to [place] for rehab as planned. However, Tahira tells me 'it was horrible, so I called them to come and get me and bring me back to the hospital.' Tahira is being seen today to discuss her goals of care and plans for discharge. MARCIN Holcomb is also present. Tahira tells me that her priority is to be in her own home 'where it's familiar and comfortable and safe. Being in these hospitals and that rehab was very traumatizing for me. I'm grateful for the care, but I just want to go home.' Tahira currently receives home health care services through [facility] and she has developed a very close relationship with her RN Sada - 'I don't want to give her up.' I explain to Tahira the differences between palliative care and hospice care. Tahira says that she wants to keep Sada as her RN -'I don't want more people I don't know coming in/out of my house right now.' She would also like PT/OT services, which can be provided by home health. A/P: Based on our conversation, palliative care appears to be most suited to Tahira's needs and she is in agreement with this. I provide my card and let her know that she or her [facility] can contact me with any further questions. Tahira expresses appreciation for today's visit. [facility] will follow up with Tahira once she has been discharged home. Jv Olivarez NP
--- NOTE | 2018-08-30 14:29 | WOCRNPDOC ---
WOCRN Advanced Assessment Note - Skin Integrity Problem, Advanced Assess Coccyx Dressing Type: Allevyn Life Dressing Description: Clean/Dry, Intact Integumentary Issue Intervention: Dressing Changed, Hydrogel Applied Chandrika Wound Tissue: Erythema Chandrika Wound Swelling: None Wound Bed Color: Ravenel, Red Wound Bed Constitution: Granulation Tissue (20%), Red/Ravenel - Non Granular Tissue (80%) Wound Edges: Attached Site Measurement - Head-to-Toe Length X Width X Depth (cm): 4.8x3.2x0.1 Pressure Injury Stage: Stage 3 Pressure Injury Present on Admit: Yes Skin Integrity Problem Comment: Allevyn life removed per pt permission. What was 2 separate wounds when last assessed 4 days ago has now merged into one wound. Wound bed cleaned with ns and gauze, wound gel applied to wound bed and covered with Allevyn life dressing. There is also a healed pressure injury to R sacroiliac crest that is now healed and scarred. Patient positioned turned to right side with pillows offloading the coccyx. Patient educated on importance of staying off the wound by alternating side lying (not lying on back) and having the head of bed as low as tolerated to decrease shearing forces. Patient expressed understanding though per staff, has been non compliant with turning despite their attempts at repositioning and education on offloading the coccyx area. MIKEL King and RISSA Sawyer in room for care. Wound care will follow.
--- NOTE | 2018-08-30 15:34 | GDS ---
[f rep st] DISCHARGE SUMMARY DISCHARGE DIAGNOSES: 1. Chronically infected left hip with hardware, on suppressive antibiotics. 2. Recurrent falls. 3. Osteoporosis. 4. Hypothyroidism. 5. Depression. 6. Obstructive sleep apnea. Please see admission history and physical by Dr. Franco Thakur. The patient was readmitted to the hospital on the evening of the following having been here from the through the . She was discharged to [facility] [place]. Prior to that, she had been at [facility] for a couple weeks. Ultimately, the decision there was to discharge to hospice. She w ound up back here at [place]. She went to [facility] and lasted a couple hours and called 911. The patient is unsafe to live at home in the traditional sense in that she is at risk for falls, has osteoporosis, she has a cervical spine fracture and a hard collar. The patient was offered inpatient hospice. She declined. She was offered an alternative nursing aviva e. She declined. She acknowledges the risks, and is alert, oriented, and able to demonstrate that i t is less safe to be at home at a higher risk of falls, but she chooses to go home because that is "h er healing space" and she wishes to be with her dog. I discussed this at length with her. She accep ts the risk of going home. She has some friends who are going to help her almost 05/01. She is discharged home with home care. I have provided her with prescriptions. She has a hard collar she is to wear through October 22, given her cervical spine fractures. Greater than 30 minutes spent on this discharge. /[id number]/MODL
[2018-08-30] MEDS: DICYCLOMINE 20 MG TAB PO PRN (16:06)
[2018-08-30] MEDS: CALCIUM CARBONATE 500 MG CHEWABLE TAB PO PRN (16:06)
[2018-08-30] MEDS: ONDANSETRON DISINTEGRATING 4 MG TAB PO PRN (16:06)
--- NOTE | 2018-08-30 16:29 | PDIAF ---
- Diagnosis Diagnosis: falls - Medication Management Additional Medication Instructions: where cervical hard collar until 11/02/18. follow up w neurosurgery as instructed on last admit Discharge Medications: electronically signed and located in the Home Medication List. - Orders Services needed: Home Care, Registered Nurse, Physical Therapy, Occupational Therapy Home Care Face to Face: I certify that this patient was under my care and that I had the required [id number] encounter meeting the encounter requirements on the discharge day. My findings support the fact that the patient is homebound as defined in Home Care Face to Face Continued: CMS Chapter 7 Medicare Benefits Manual 30.1.1 , The condition of the patient is such that there exists a normal inability to leave home and consequently, leaving home would require a considerable and taxing effort. Isolation Type: None Additional Instructions: wear cervical collar 05/01 until 11/02/18 Please follow up within 3- 4 weeks of discharge with [facility] if you continue to have issues with your wounds: You may reach them at [phone] for an appointment and continued management of your wounds. Please call them [facility] to schedule your appointment as they fill up quickly. If before that time you have any issues please follow up with your PCP. Wound care: You have a stage 3 pressure injury (also known as a bedsore) on your tailbone. To help heal this wound and avoid further injury please do the followin. Reposition yourself frequently, at least every 15 minutes when sitting. We recommend sitting on an air cushion. Please never use a doughnut. 2. When youre in bed, try to rest on your side as much as possible, and change position every two hours (for example, turn or tilt from your right side toward your left).~ If you sleep on a sleep number or medical bed, keep the head of the bed below 30 degrees and keep all pressure off your low back for at least 5 minutes at least every two hours.~ 3. As needed, you may use Calazime, dimethicone moisture barrier cream, or any [id number] diaper rash cream to help prevent or treat a moisture- related rash to your bottom area and buttocks. Change dressing to Coccyx every 3 days and as needed. 1. Clean with normal saline and gauze or in the shower with soap and water. 2. Apply Wound gel to wound bed 4. Cover with Mepilex Border Sacrum or any other foam border dressing follow up with your MD at for your left hip as discussed at your last inpatient visit to [facility] - Follow Up Care Current Providers and Referrals: Patient,NotPresent [Unknown] - As per Instructions
--- NOTE | 2018-08-30 17:26 | ASMTLACE ---
LACE Length of stay for Answers: 4-6 days current admission Comorbidities - select Answers: Chronic pulmonary disease all that apply History of falls Opioid dependence / Chronic pain Palliative care / End of life trajectory Other Notes: Hypothyroid # of Emergency department Answers: 3-4 visits in the last 6 months Social determinants Answers: Mental health diagnosis (anxiety, depression, pers onality disorders, etc.) Score: 22 Date Signed: 08/30/2018 05:26 PM Electronically Signed By:CORI Harris
--- NOTE | 2018-08-30 17:42 | ASMTCMCOM ---
CM Note CM Note Notes: Pt medically stable for d/c with [facility], HC PT/OT/RN and unskilled care of [facility]. PT/OT continue to rec SNF as safest d/c considering pt is a high fall risk, has cervical collar she has to wear until October, see notes. Hospice would offer more support and pt declines hospice today. Today [facility] worker Bhumika Olivarez and this CM met w pt for d/c planning. Pt adamant she will go home and not return to SNF. Pt was again informed about outpatient palliative and hospice services, Dr. Liz had an extensive conversation with pt last week about the options. Pt wants to d/c home with skilled care and continued unskilled care with [facility], declining hospice. There is no concern with pt ability to make medical decisions. [place] with [facility] ([phone]) is updated and will re-auth pt unskilled care with [facility]. Spoke with [facility] worker Shruthi ([phone]), she is concerned about pt returning home and will resume unskilled care. Today Mabel with [facility] reports after reviewing pt current clinicals they will not be able to resume care, they do not think they can keep pt safe in home. Pt is upset because she has had RN care with [facility] Sada for many years. Pt still declines hospice knowing Sada can no longer be her RN, earlier in the day one of the reasons pt did not want to consider hospice was because she did not want to lose Sada. [facility] can accept pt for skilled OT/PT/RN, orders to be obtained in [facility]. Pt LEONARDO Alva updated, he will be at home when pt gets there. Artie reports pt has limited friends/family it is really only him who is available to help pt. FRANNY prasad arranged for 0, copy of pcs in chart. Pt agreed to [employer] [facility], voicemail left for referral. Bhumika Olivarez at [facility] does not have voicemail so Rachana who answered the phone at [facility] will get her the message that pt d/c today. Date Signed: 08/30/2018 05:42 PM Electronically Signed By:CORI Harris
[2018-08-30 20:16] VITALS: BP 130/57
--- NOTE | 2018-08-31 10:19 | ASDISCHSUM ---
Discharge Information Plan Status:Home with Home Health Medically Cleared to Leave: Discharge Date:08/30/2018 08:37 PM CM D/C Disposition: ADT D/C Disposition:Home, Routine, Self-Care Projected Discharge Date:08/28/2018 11:00 AM Transportation at D/C:ALS/BLS Discharge Delay Reason: Follow-Up Date:08/28/2018 11:00 AM Discharge Slot: Final Diagnosis: Placement Information Referral Type:Palliative Care Referral ID:[id number] Provider Name:[facility] Address 1:[address] Phone Number: Address 2: Fax Number: [facility]:[place] Selection Factors: State:[place] Referral Type:*Home Health Care Services Referral ID:[id number] Provider Name:[facility] Address 1:[address] [place] [address] Address 2: [facility]:[place] Selection Factors: State:[place] Patient Contact Information Contact Name:KEARA Relationship:Other Address: Work Phone: City:[place] Alternate Phone: State/Zip Code:[place] Email: Financial Information Financial Class:Medicare Primary Plan Desc:MEDICARE OUTPATIENT Primary Plan Number:[id number] Secondary Plan Desc:MED[place] Secondary Plan Number:[id number] Assessment Information [facility] CM Progress Note CM Note CM Note Notes: Pt is a 82 y/o female admitted for multiple falls, fractures and pain. Pt was d/c'd yesterday to [facility]. Pt has multiple complaints about [facility] and not interested in going back. Pt would like to d/c home w/ [facility]. Pt currently getting non skilled HC a couple hrs a day at home. Therapies have been ordered and pending. Pt has 19 stairs to get into her home. Pt was hoping that [facility] would be able to assist her up the stairs. Pt is also requesting a stretcher transport at this time. Referral sent to [facility] and [facility]. [facility] is able to accept. Pts PCP is Dr. Gutierrez Reyes. CM confirmed pts address and phone number. CM to follow. Plan: BC; PT, OT, RN, [facility] falcon, private duty vs SNF Date Signed: 08/28/2018 11:04 AM Electronically Signed By:JORDY Nunes LACE SALVADOR Length of stay for Answers: 4-6 days current admission Comorbidities - select Answers: Chronic pulmonary disease all that apply History of falls Opioid dependence / Chronic pain Palliative care / End of life trajectory Other Notes: Hypothyroid # of Emergency department Answers: 3-4 visits in the last 6 months Social determinants Answers: Mental health diagnosis (anxiety, depression, pers onality disorders, etc.) Score: 22 Date Signed: 08/30/2018 05:26 PM Electronically Signed By:CORI Harris [facility] Progress Note CM Note CM Note Notes: Pt medically stable for d/c with [facility] outpatient palliative, HC PT/OT/RN and unskilled care of [facility]. PT/OT continue to rec SNF as safest d/c considering pt is a high fall risk, has cervical collar she has to wear until October, see notes. Hospice would offer more support and pt declines hospice today. Today [facility] palliative worker Bhumika Olivarez and this CM met w pt for d/c planning. Pt adamant she will go home and not return to SNF. Pt was again informed about outpatient palliative and hospice services, Dr. Liz had an extensive conversation with pt last week about the options. Pt wants to d/c home with skilled care and continued unskilled care with [facility], declining hospice. There is no concern with pt ability to make medical decisions. [place] with [facility] ([phone]) is updated and will re-auth pt unskilled care with [facility]. Spoke with [facility] worker Shruthi ([phone]), she is concerned about pt returning home and will resume unskilled care. Today Mabel with [facility] reports after reviewing pt current clinicals they will not be able to resume care, they do not think they can keep pt safe in home. Pt is upset because she has had RN care with [facility] for many years. Pt still declines hospice knowing [facility] can no longer be her RN, earlier in the day one of the reasons pt did not want to consider hospice was because she did not want to lose Sada. [facility] can accept pt for skilled OT/PT/RN, orders to be obtained in [facility]. Pt LEONARDO Alva updated, he will be at home when pt gets there. Artie reports pt has limited friends/family it is really only him who is available to help pt. FRANNY prasad arranged for 0, copy of pcs in chart. Pt agreed to [facility], voicemail left for referral. Bhumika Olivarez at [facility] does not have voicemail so Rachana who answered the phone at [facility] will get her the message that pt d/c today. Date Signed: 08/30/2018 05:42 PM Electronically Signed By:CORI Harris Intervention Information Intervention Type:No Admission Order Date of Service:08/27/2018 07:04 AM Patient Type:Observation Staff Member:MIKEL Thakur Courtney Hours: Discipline: Severity: Comment: Intervention Type:*ELLISON-Signed Date of Service:08/30/2018 02:29 PM Patient Type:Observation Staff Member:Maryanne Germain Hours: Discipline: Severity: Comment:
== END 2018-08-30 20:37 | disposition home or self-care (01) ==
LOC: EDUNIT# → F3N 21:05
PROVIDERS: ADMIT Internal Medicine; ATTEND Internal Medicine
DX: S12.401A Unspecified nondisplaced fracture of fifth cervical vertebra, initial encounter for closed fracture (principal); T84.69XA Infection and inflammatory reaction due to internal fixation device of other site, initial encounter; M86.652 Other chronic osteomyelitis, left thigh; M81.0 Age-related osteoporosis without current pathological fracture; J44.9 Chronic obstructive pulmonary disease, unspecified; G89.29 Other chronic pain; N81.10 Cystocele, unspecified; E03.9 Hypothyroidism, unspecified; F32.9 Major depressive disorder, single episode, unspecified; G47.33 Obstructive sleep apnea (adult) (pediatric); E87.1 Hypo-osmolality and hyponatremia; W19.XXXA Unspecified fall, initial encounter; Y92.009 Unspecified place in unspecified non-institutional (private) residence as the place of occurrence of the external cause; Y99.9 Unspecified external cause status; Z91.81 History of falling; Z99.81 Dependence on supplemental oxygen; Z96.643 Presence of artificial hip joint, bilateral; Z90.89 Acquired absence of other organs; Z87.891 Personal history of nicotine dependence
CPT/HCPCS: 97162; 97167; 97530; 97535; G0378; J1170; J1650; 96374